=== PATIENT | male | born 1950 | race Caucasian/White ===

== ENCOUNTER 2016-05-24 11:48 | Inpatient (IN) | payer MEDICARE, OTHER ==
[2016-05-24] VITALS (12 sets, daily range): BP systolic 79–112; BP diastolic 43–60; PULSE 49–84; RESP 16–26; TEMP 97.3–97.6; O2SAT 95–100
[~2016-05-24] VITALS: Ht 188 cm; Wt 117.0 kg
[~2016-05-24 11:48] MED LIST: AMIO200T PO; ASPI81TA44 PO; BUME1TAB26 PO; CARV3.125 PO; COLA100C3 PO; COUM4TAB PO; HYDR-3288 PO; INSU1INJ5 SQ; LEXA10TA PO; LISI2.5T3 PO; MULT1TAB85 PO; NOVORP2 SQ; OCEA0.653 EACH NARE; POTA75TA PO; PROM12.55 PO; PROT40TA PO; REGL10TA5 PO; SILV1CRE20 TOPICAL; SIME80CH CHEW; VITA500C9 PO; WARF4TAB52 PO; ZOFR4TAB IM
--- NOTE | 2016-05-24 12:11 | PD ---
HPI Chief Complaint: altered mental status Time Seen by Provider: 12:10 Travel History International Travel<30 days: No Contact w/Intl Traveler<30days: No Traveled to known affect area: No History of Present Illness HPI 65-year-old male who is wheelchair-bound and lives in [facility] rehabilitation happens to be quite a debilitated man went to see his vascular surgeon today. Patient has poor circulation in his lower extremities and has partial foot amputation. He got the sonogram done and when Dr. Garcia had gone to see him patient became poorly responsive. His blood pressure went down to the 60s. He recommended that the patient should be brought to the emergency room. Here he happens to be responsive but lethargic. Mid Level Net Developer says that this is worse than his usual baseline mental status which is awake and talking. Patient is responding to certain questions. He is not a reliable historian at this present time. Patient is bradycardic but blood pressure is stable. Blood sugar was 115. PFSH Past Medical History Narrative Medical List of his past medical history as reviewed from the nursing note. Hx Anticoagulant Therapy: Yes (WAFARIN ) Asthma: No Blood Disorders: Yes Anxiety: No Depression: Yes Heart Rhythm Problems: Yes (AFIB) Cancer: No Cardiovascular Problems: Yes (CHF, AFIB ) Chemotherapy: No COPD: Yes Diabetes: Yes Diminished Hearing: Yes ([place]) Endocrine: Yes Gastrointestinal Disorders: No Genitourinary: No Hypertension: Yes Immune Disorder: No Implanted Vascular Access Dvce: No Musculoskeletal: No Neurologic: Yes Psychiatric: Yes Reproductive: No Respiratory: Yes (COPD ) Radiation Therapy: No Sleep Apnea: No Thyroid Disease: No Past Surgical History Abdominal Surgery: Yes (GALLBLADDER) Cholecystectomy: Yes Pacemaker: No Tonsillectomy: Yes Other Surgery: Yes Social History Alcohol Use: No Tobacco Use: No Substance Use: No Allergies-Medications (Allergen,Severity, Reaction): Coded Allergies: *MDRO Multi-Drug Resistant Organism (Verified Adverse Reaction, Unknown, 05/26/16) MRSA (toe wound) - 01/27/16 MRSA PCR Screen POSITIVE - 05/26/16 Comments List of his allergies reviewed from the nursing note. Reported Meds & Prescriptions Reported Meds & Active Scripts Active Reported Omeprazole 20 Mg Tab 20 Mg PO DAILY Phenergan (Promethazine HCl) 25 Mg Tab 25 Mg PO Q4HR PRN Potassium Chloride ER (Potassium Chloride) 20 Meq Tab 20 Meq PO BID Warfarin 5 Mg Tab 5.5 Mg PO DAILY Take 1 tablet (5mg) with 1/2 of 1mg tab (0.5mg) for a total dose of 5.5mg daily Zofran (Ondansetron HCl) 4 Mg Tab 4 Mg IM Q4HR PRN Warfarin 1 Mg Tab 5.5 Mg PO DAILY Take 1/2 tab (0.5mg) with 5mg tablet for a total dose of 5.5mg daily Vitamin C (Ascorbic Acid) 500 Mg Chew 500 Mg PO BID Simethicone 80 Mg Chw 80 Mg CHEW QID PRN Reglan (Metoclopramide HCl) 10 Mg Tab 10 Mg PO QID [place] Nasal [place] (Sodium Chloride) 0.65% [place] 2 [place] EACH NARE Q6HR PRN Novolin R Inj (Insulin Human Regular) 1,000 Unit/10 Ml Vial 3-15 Units SQ DIRECTED Sliding Scale: if 201-250=3 units, 251-300=5 units, 301-350=8 units, 351-400=10 units, 401+=15 units and call MD [place] (Hydrocodone-Acetaminophen) 7.5-325 mg Tab 1 Tab PO Q6H PRN Multivitamin Men (Multiple Vitamins W/ Minerals) 1 Tab Tab 1 Tab PO DAILY Lisinopril 2.5 Mg Tab 2.5 Mg PO DAILY Lexapro (Escitalopram Oxalate) 10 Mg Tab 10 Mg PO DAILY Levemir Flextouch Pen Inj (Insulin Detemir) 300 unit/3 ML Pen 15 Units SQ HS Coreg (Carvedilol) 3.125 Mg Tab 3.125 Mg PO Q12HR Colace (Docusate Sodium) 100 Mg Cap 100 Mg PO BID Bumex (Bumetanide) 1 Mg Tab 1 Mg PO BID Aspirin Enteric Coated Adult (Aspirin) 81 Mg Tabdr 162 Mg PO DAILY Amiodarone (Amiodarone HCl) 200 Mg Tab 200 Mg PO DAILY Narrative Medication List of his home medications reviewed from the nursing note. Review of Systems Except as stated in HPI: all other systems reviewed are Neg Physical Exam Narrative GENERAL: Lethargic, obese, nonambulatory SKIN: Warm and dry. HEAD: Atraumatic. Normocephalic. EYES: Pupils equal and round. No scleral icterus. No injection or drainage. ENT: No nasal bleeding or discharge. Mucous membranes pink and moist. NECK: Trachea midline. No JVD. CARDIOVASCULAR: Regular rate and rhythm. No murmur appreciated. RESPIRATORY: No accessory muscle use. Clear to auscultation. Breath sounds equal bilaterally. GASTROINTESTINAL: Abdomen soft, non-tender, nondistended. Hepatic and splenic margins not palpable. MUSCULOSKELETAL: No obvious deformities. No clubbing. No cyanosis. No edema. Partial left foot amputation, decubitus ulcer both feet heals. NEUROLOGICAL: GCS of 12, wheelchair-bound, moving upper extremity with assistance. Does not move her lower extremities. PSYCHIATRIC: Difficult to assess Data Data Last Documented VS Vital Signs Date Time Temp Pulse Resp B/P Pulse Ox O2 Delivery O2 Flow Rate FiO2 05/24/16 13:27 62 18 98/55 100 Nasal Cannula 2 05/24/16 12:11 97.4 Orders Electrocardiogram (05/24/16 12:17) Alcohol (Ethanol) (05/24/16 12:17) Complete Blood Count With Diff (05/24/16 12:17) Comprehensive Metabolic Panel (05/24/16 12:17) Creatine Kinase (Cpk) (05/24/16 12:17) Prothrombin Time / Inr (Pt) (05/24/16 12:17) Act Partial Throm Time (Ptt) (05/24/16 12:17) Troponin I (05/24/16 12:17) Lactic Acid Sepsis Protocol (05/24/16 12:17) Urinalysis - C+S If Indicated (05/24/16 12:17) Arterial Blood Gas (Abg) (05/24/16 12:17) Blood Culture (05/24/16 12:17) Ct Brain W/O Iv Contrast(Rout) (05/24/16 12:17) Blood Glucose (05/24/16 12:17) Ecg Monitoring (05/24/16 12:17) Iv Access Insert/Monitor (05/24/16 12:17) Oximetry (05/24/16 12:17) Sodium Chloride 0.9% Flush (Ns Flush) (05/24/16 12:30) Sodium Chlor 0.9% 1000 Ml Inj (Ns 1000 M (05/24/16 12:17) ^ Straight Catheter (05/24/16 12:17) Piperacil-Tazo 4.5 Gm Premix (Zosyn 4.5 (05/24/16 12:30) Vancomycin Inj (Vancomycin Inj) (05/24/16 12:30) Magnesium (Mg) (05/24/16 12:25) Chest, Single Ap (05/24/16 ) Calcium Gluconate Inj (Calcium Gluconate (05/24/16 13:45) Insulin Human Regular Inj (Novolin R Inj (05/24/16 14:00) Dextrose 50% In Yordan (Vial) Inj (D50w (Vi (05/24/16 13:45) Sodium Bicarbonate 8.4% Inj (Sodium Bica (05/24/16 13:45) Albuterol Concentrated Neb (Albuterol Co (05/24/16 13:45) Sodium Polysty Sulfate Liq (Kayexalate L (05/24/16 13:45) Urinary Catheter Insert/Apply (05/24/16 13:45) Sodium Chlor 0.9% 1000 Ml Inj (Ns 1000 M (05/24/16 14:00) Admit Order (Ed Use Only) (05/24/16 14:27) Labs Laboratory Tests Test 05/24/16 05/24/16 12:25 13:58 White Blood Count 13.1 TH/MM3 Red Blood Count 3.33 MIL/MM3 Hemoglobin 9.8 GM/DL Hematocrit 29.8 % Mean Corpuscular Volume 89.5 FL Mean Corpuscular Hemoglobin 29.3 PG Mean Corpuscular Hemoglobin 32.8 % Concent Red Cell Distribution Width 16.7 % Platelet Count 251 TH/MM3 Mean Platelet Volume 7.8 FL Neutrophils (%) (Auto) 79.6 % Lymphocytes (%) (Auto) 10.0 % Monocytes (%) (Auto) 8.4 % Eosinophils (%) (Auto) 1.4 % Basophils (%) (Auto) 0.6 % Neutrophils # (Auto) 10.4 TH/MM3 Lymphocytes # (Auto) 1.3 TH/MM3 Monocytes # (Auto) 1.1 TH/MM3 Eosinophils # (Auto) 0.2 TH/MM3 Basophils # (Auto) 0.1 TH/MM3 CBC Comment DIFF FINAL Differential Comment Prothrombin Time 35.8 SEC Prothromb Time International 3.1 RATIO Ratio Activated Partial 41.8 SEC Thromboplast Time Sodium Level 127 MEQ/L Potassium Level 6.1 MEQ/L Chloride Level 94 MEQ/L Carbon Dioxide Level 22.0 MEQ/L Anion Gap 11 MEQ/L Blood Urea Nitrogen 100 MG/DL Creatinine 4.21 MG/DL Estimat Glomerular Filtration 14 ML/MIN Rate Random Glucose 104 MG/DL Lactic Acid Level 1.6 mmol/L Calcium Level 8.8 MG/DL Magnesium Level 2.6 MG/DL Total Bilirubin 0.5 MG/DL Aspartate Amino Transf 21 U/L (AST/SGOT) Alanine Aminotransferase 45 U/L (ALT/SGPT) Alkaline Phosphatase 93 U/L Total Creatine Kinase 39 U/L Troponin I LESS THAN 0.02 NG/ML Total Protein 7.8 GM/DL Albumin 3.3 GM/DL Ethyl Alcohol Level LESS THAN 3 MG/DL Blood Gas Puncture Site RT RADIAL Blood Gas Patient Temperature 98.6 Blood Gas HCO3 19 mmol/L Blood Gas Base Excess -5.4 mmol/L Blood Gas Oxygen Saturation 96 % Arterial Blood pH 7.34 Arterial Blood Partial 37 mmHg Pressure CO2 Arterial Blood Partial 150 mmHG Pressure O2 Arterial Blood Oxygen Content 13.3 Vol % Arterial Blood 2.1 % Carboxyhemoglobin Arterial Blood Methemoglobin 1.5 % Blood Gas Hemoglobin 9.6 G/DL Oxygen Delivery Device NASAL CANNULA Blood Gas Liter Flow 3 L/M MDM Medical Decision Making Medical Screen Exam Complete: Yes Emergency Medical Condition: Yes Medical Record Reviewed: Yes Interpretation(s) Twelve-lead EKG was reviewed by me. Normal sinus rhythm, normal axis, bradycardia, first-degree AV block, nonspecific ST-T wave changes. Heart rate of 53 bpm. Differential Diagnosis Sepsis, dehydration, electrolyte abnormalities, CVA Narrative Course 1:51 PM blood test results are back and shows significant electrolyte abnormalities. Patient is hyperkalemic, hyponatremic, acute renal failure and these are definitely new compared to his recent old blood work. Head CT does not show any acute changes. Chest x-ray is getting done right now. Patient was given IV fluid and antibiotic as per sepsis protocol initially. I've asked the nurse to put a Chase catheter in. Patient will need admission. Awaiting for the hospitalist to call back. Critical Care Narrative Aggregate critical care time was 45 minutes. Time to perform other separately billable procedures was not included in the critical care time. My time did not include minutes spent treating any other patients simultaneously or on activities that did not directly contribute to the patient's treatment. The services I provided to this patient were to treat and/or prevent clinically significant deterioration that could result in: Acute renal failure, hyperkalemia, hyperkalemia management, sepsis, sepsis protocol I provided critical care services requiring my management, as noted below: Chart data review, documentation time, medication orders and management, vital sign assessments/reviewing monitor data, ordering and reviewing lab tests, ordering and interpreting/reviewing x-rays and diagnostic studies, care of the patient and discussion of the patient with the admitting physicians. Procedures EKG Prior to Arrival: No Diagnosis Primary Impression: Acute renal failure Qualified Code: N17.9 - Acute renal failure, unspecified acute renal failure type Additional Impressions: Hyperkalemia Hyponatremia Altered mental status Qualified Code: R40.0 - Somnolence Dehydration Hypotension Qualified Code: I95.9 - Hypotension, unspecified hypotension type Sepsis Qualified Code: A41.9 - Sepsis, due to unspecified organism Admitting Information Admitting Physician Requests: Josh Vogel MD May 24, 2016 12:11
[2016-05-24] MEDS ORDERED: SODIUM CHLOR 0.9% 1000 ML INJ 1,000 ML IV SCH (12:17)
[2016-05-24] MEDS ORDERED: PIPERACIL-TAZO 4.5 GM PREMIX 100 ML IV ONE (12:30)
[2016-05-24] MEDS ORDERED: SODIUM CHLORIDE 0.9% FLUSH 5 ML FLUSH IVF PRN (12:30)
[2016-05-24] MEDS ORDERED: VANCOMYCIN INJ 1,000 MG in SODIUM CHLOR 0.9% 250 ML INJ 250 ML IV ONE (12:30)
[2016-05-24 12:36] LABS: AUTOMATED NEUTROPHIL # 10.4 TH/MM3 (1.8-7.7); BASOPHIL # 0.1 TH/MM3 (0-0.2); BASOPHIL % 0.6 % (0.0-2.0); EOSINOPHIL # 0.2 TH/MM3 (0-0.4); EOSINOPHIL % 1.4 % (0.0-4.0); HEMATOCRIT 29.8 % (39.0-51.0); HEMO FLAGS DIFF FINAL; LYMPHOCYTE # 1.3 TH/MM3 (1.0-4.8); MEAN CELL VOLUME 89.5 FL (80.0-100.0); MEAN CORPUSCULAR HEMOGLOBIN 29.3 PG (27.0-34.0); MEAN CORPUSCULAR HGB CONC 32.8 % (32.0-36.0); MONO % 8.4 % (0.0-8.0); NEUT % 79.6 % (16.0-70.0); PLATELET COUNT 251 TH/MM3 (150-450); RED BLOOD COUNT 3.33 MIL/MM3 (4.50-5.90); RED CELL DISTRIBUTION WIDTH 16.7 % (11.6-17.2); WHITE BLOOD COUNT 13.1 TH/MM3 (4.0-11.0)
[2016-05-24 12:51] LABS: APTT (PATIENT) 41.8 SEC (24.3-30.1); INTERNATIONAL NORMALIZED RATIO 3.1 RATIO; PROTHROMBIN TIME - PATIENT 35.8 SEC (9.8-11.6)
[2016-05-24 12:58] LABS: ANION GAP 11 MEQ/L (5-15); AST (GOT) 21 U/L (15-37); CHLORIDE 94 MEQ/L (98-107); GLOMERULAR FILTRATION RATE 14 ML/MIN (>89); MAGNESIUM 2.6 MG/DL (1.5-2.5); POTASSIUM 6.1 MEQ/L (3.5-5.1); SODIUM (NA) 127 MEQ/L (136-145)
[2016-05-24 13:05] LABS: ALKALINE PHOSPHATASE 93 U/L (45-117); ALT (GPT) 45 U/L (12-78); BLOOD UREA NITROGEN 100 MG/DL (7-18); TOTAL BILIRUBIN ADULT 0.5 MG/DL (0.2-1.0)
[2016-05-24 13:06] LABS: CREATINE KINASE 39 U/L (39-308)
[2016-05-24] MEDS ORDERED: WARF-23 PO (13:14)
[2016-05-24] MEDS ORDERED: PROM25TA5 PO (13:14)
[2016-05-24] MEDS ORDERED: OMEP20TA PO (13:14)
[2016-05-24] MEDS ORDERED: POTA-163 PO (13:14)
--- NOTE | 2016-05-24 13:19 | RADRPT ---
EXAM DATE/TIME: 05/24/2016 12:55 [facility] COMPARISON: CT BRAIN W/O CONTRAST, May 07, 2016, 18:47. INDICATIONS : Altered mental status. RADIATION DOSE: 56.35 CTDIvol (mGy) MEDICAL HISTORY : Diabetes mellitus type 2. Congestive heart failure. Chronic obstructive pulmonary disease.Hypertensio n. SURGICAL HISTORY : Cholecystectomy. ENCOUNTER: Initial ACUITY: 1 day PAIN SCALE: 0/10 LOCATION: cranial TECHNIQUE: Multiple contiguous axial images were obtained of the head. Using automated exposure control and adj ustment of the mA and/or kV according to patient size, radiation dose was kept as low as reasonably a chievable to obtain optimal diagnostic quality images. FINDINGS: CEREBRUM: Atrophy. Periventricular low attenuation change. The appearance is stable. The ventricles are normal for age. No evidence of midline shift, mass lesion, hemorrhage or acute infarction. No extra-axial fluid collections are seen. POSTERIOR FOSSA: The cerebellum and brainstem are intact. The 4th ventricle is midline. The cerebellopontine angle i s unremarkable. EXTRACRANIAL: The visualized portion of the orbits is intact. SKULL: The calvaria is intact. No evidence of skull fracture. CONCLUSION: 1. No acute intracranial abnormality. 2. Atrophy. 3. Chronic small vessel ischemic change. Juvenal Jarquin Jr., MD on May 24, 2016 at 13:15 Board Certified Radiologist. This report was verified electronically.
[2016-05-24] MEDS ORDERED: SODIUM POLYSTYRENE SULFONATE SUSP 15 GM/60 ML CUP PO ONE (13:45)
[2016-05-24] MEDS ORDERED: CALCIUM GLUCONATE 10% 1 GM/10 ML VIAL SLOW IVP ONE (13:45)
[2016-05-24] MEDS ORDERED: RESP: ALBUTEROL CONC 2.5 MG/0.5 ML NEB INH ONE (13:45)
[2016-05-24] MEDS ORDERED: DEXTROSE 50% IN WATER 50 ML VIAL(D50) IV PUSH ONE (13:45)
[2016-05-24] MEDS ORDERED: SODIUM BICARBONATE 8.4% SOLN 50 MEQ/50 ML VIAL SLOW IVP ONE (13:45)
[2016-05-24] MEDS ORDERED: SODIUM CHLOR 0.9% 1000 ML INJ 1,000 ML IV ONE (14:00)
[2016-05-24] MEDS ORDERED: INSULIN HUMAN REGULAR 1,000 UNITS/10 ML VIAL IV PUSH ONE (14:00)
--- NOTE | 2016-05-24 14:00 | RADRPT ---
EXAM DATE/TIME: 05/24/2016 13:36 [facility] COMPARISON: CHEST SINGLE AP, May 07, 2016, 18:40. INDICATIONS: Short of breath. MEDICAL HISTORY: None. SURGICAL HISTORY: None. ENCOUNTER: Initial ACUITY: 1 day PAIN SCORE: Non-responsive. LOCATION: Bilateral chest FINDINGS: The lungs are under aerated. The heart is enlarged. Pulmonary vascularity is normal. Very minimal parenchymal changes are seen in the left base. CONCLUSION: Under aerated with compensated cardiomegaly. Nahid Cazares MD FACR on May 24, 2016 at 13:56 Board Certified Radiologist. This report was verified electronically.
[2016-05-24 14:08] LABS: BLOOD GAS BASE EXCESS -5.4 mmol/L (-2-2); BLOOD GAS CARBOXYHEMOGLOBIN 2.1 % (0-4); BLOOD GAS HCO3 19 mmol/L (22-26); BLOOD GAS METHEMOGLOBIN 1.5 % (0-2); BLOOD GAS O2 HGB SATURATION 96 % (90-100); BLOOD GAS OXYGEN CONTENT 13.3 Vol % (12.0-20.0); BLOOD GAS PCO2 37 mmHg (38-42); BLOOD GAS PO2 150 mmHG (61-120); BLOOD GAS TOTAL HGB 9.6 G/DL (12.0-16.0); CRITICAL VALUE NO; DRAW SITE RT RADIAL; LITER FLOW 3 L/M; NUMBER OF ARTERIAL PUNCTURES 1; OXYGEN DEVICE NASAL CANNULA; TEMP CORR TO 98.6
[2016-05-24 14:09] LABS: STAT YES
[2016-05-24] MEDS ORDERED: MISCELLANEOUS NURSING INFORMATION XX SCH (14:45)
[2016-05-24] MEDS ORDERED: CHLORHEXIDINE GLUCONATE 2 % 1 PACK (2 CLOTHS) TOP PRN (14:45)
[2016-05-24] MEDS ORDERED: SODIUM CHLORIDE 0.9% FLUSH 5 ML FLUSH IV FLUSH PRN (14:45)
[2016-05-24] MEDS ORDERED: RESP: ALBUTEROL 2.5 MG/IPRATROPIUM 0.5 MG NEB (PRN) INH (14:45)
[2016-05-24 15:01] LABS: BACTERIA, URINE OCC /hpf; BLOOD, URINE SMALL (NEG); GLUCOSE,URINE NEG (NEG); KETONE, URINE NEG (NEG); MUCUS URINE FEW /lpf (OCC); NITRITE,URINE NEG (NEG); URINE COLOR YELLOW (YELLW/STRAW)
[2016-05-24 15:02] LABS: COMMENT (UR) CATH-CULTURE IND; CULTURE IF INDICATED CATH CULTURE IND
[2016-05-24] MEDS: INSULIN ASPART SUPPLEMENTAL SCALE SQ SCH ×2 (15:30→18:20)
--- NOTE | 2016-05-24 16:05 | HHI.HP ---
[facility] Service Critical Care Medicine Primary Care Physician No Primary Care Physician Admission Diagnosis AMS, acute renal failure, sepsis, hyperkalemia Diagnosis: (1) Severe sepsis Diagnosis: Principal (2) Acute metabolic encephalopathy Diagnosis: Principal (3) Hyperkalemia Diagnosis: Principal (4) Dehydration Diagnosis: Principal (5) Acute renal failure Diagnosis: Principal (6) UTI (urinary tract infection) Diagnosis: Principal (7) Supratherapeutic INR Diagnosis: Principal (8) Leukocytosis Diagnosis: Principal (9) CAD (coronary artery disease) Diagnosis: Secondary (10) PAD (peripheral artery disease) Diagnosis: Secondary (11) Afib Diagnosis: Secondary (12) CHF (congestive heart failure) Diagnosis: Secondary (13) Diabetic foot ulcers Diagnosis: Secondary Chief Complaint: Altered mental status Renal failure Severe sepsis Travel History International Travel<30 Days: No Contact w/Intl Traveler <30 Da: No Traveled to Known Affected Are: No Sepsis Criteria SIRS Criteria (2 or more): RR > 20 or PaCO2 < 32, WBC > 64818, < 4000 or > 10 % bands Sepsis Criteria (SIRS+source): Infect source susp/known Severe Sepsis (+one): Hypotension, Acute Oliguria/Renal Failure Criteria Outcome: Meets severe sepsis criteria History of Present Illness This is a 65-year-old male with past medical history significant for type 2 diabetes, diabetic neuropathy, COPD, hypertension, Depression, A. fib on Coumadin, CHF (Echo 03/26 EF 50-55%), recurrent UTI, chronically wheelchair- bound who was brought to the emergency department from [facility]. He went to see vascular surgeon today for severe peripheral arterial disease. When Dr. Billings, vascular surgeon saw the patient he was poorly responsive systolic blood pressure was in the 60s. Patient was sent over to the emergency department where he was responsive but lethargic. At baseline he is awake and talking. His blood glucose was 115. CT of the head and a chest x-ray did not show any acute findings. Patient had a white count of 13.1 with 80% neutrophils. Also his sodium was 127 and a potassium of 6.1 with BUN 100 and creatinine 4.2. Patient has baseline chronic kidney disease with creatinine varying from 1.2-2.8. Patient received vancomycin and Zosyn in the ED empirically as source of infection was not known. After Chase was placed it was noted that urine is quite cloudy and possible source of sepsis was UTI I evaluated the patient in the ED. After receiving 2 L of crystalloids patient' s mentation is better even though still slightly lethargic. Patient has bilateral diabetic lower extremity ulcers. He has a necrotic appearing large ulceration on the lateral left foot. Also posterior ankle of right lower extremity has a large ulcer with sloughing and evidence of infection, muscle tendons are visible. Wound on right lateral ankle appears to be healing. Urine and sputum cultures have been ordered. I will continue vancomycin and Zosyn Review of Systems ROS Limitations: Other (as per HPI) Past Family Social History Allergies: Coded Allergies: *MDRO Multi-Drug Resistant Organism (Verified Adverse Reaction, Unknown, 05/07/16) MRSA (toe wound) - 01/27/16 Past Medical History Chronic atrial fibrillation on Coumadin History of congestive heart failure ejection fraction on 03/2016 50-55% COPD Hypertension History of UTI Peripheral vascular disease Diabetic neuropathy Chronic pain Bilateral diabetic foot ulcers History of osteomyelitis left lower extremity Past Surgical History Cholecystectomy Tonsillectomy Reported Medications Omeprazole 20 Mg Tab 20 Mg PO DAILY Phenergan (Promethazine HCl) 25 Mg Tab 25 Mg PO Q4HR PRN Potassium Chloride ER (Potassium Chloride) 20 Meq Tab 20 Meq PO BID Warfarin 5.5 Mg PO DAILY Zofran (Ondansetron HCl) 4 Mg Tab 4 Mg IM Q4HR PRN Vitamin C (Ascorbic Acid) 500 Mg Chew 500 Mg PO BID Simethicone 80 Mg Chw 80 Mg CHEW QID PRN Reglan (Metoclopramide HCl) 10 Mg Tab 10 Mg PO QID [place] Nasal [place] (Sodium Chloride) 0.65% [place] 2 [place] EACH NARE Q6HR PRN Novolin R Inj (Insulin Human Regular) 1,000 Unit/10 Ml Vial 3-15 Units SQ DIRECTED [place] (Hydrocodone-Acetaminophen) 7.5-325 mg Tab 1 Tab PO Q6H PRN Multivitamin Men (Multiple Vitamins W/ Minerals) 1 Tab Tab 1 Tab PO DAILY Lisinopril 2.5 Mg Tab 2.5 Mg PO DAILY Lexapro (Escitalopram Oxalate) 10 Mg Tab 10 Mg PO DAILY Levemir Flextouch Pen Inj (Insulin Detemir) 300 unit/3 ML Pen 15 Units SQ HS Coreg (Carvedilol) 3.125 Mg Tab 3.125 Mg PO Q12HR Colace (Docusate Sodium) 100 Mg Cap 100 Mg PO BID Bumex (Bumetanide) 1 Mg Tab 1 Mg PO BID Aspirin Enteric Coated Adult (Aspirin) 81 Mg Tabdr 162 Mg PO DAILY Amiodarone (Amiodarone HCl) 200 Mg Tab 200 Mg PO DAILY Active Ordered Medications Reviewed Family History Not contributing Social History [facility] resident wheelchair bound. Denies alcohol or tobacco use Physical Exam Vital Signs Vital Signs Date Time Temp Pulse Resp B/P Pulse Ox O2 Delivery O2 Flow Rate FiO2 05/24/16 14:47 68 16 101/44 100 Nasal Cannula 2 05/24/16 13:27 62 18 98/55 100 Nasal Cannula 2 05/24/16 12:40 60 18 92/43 100 Nasal Cannula 2 05/24/16 12:24 98 Nasal Cannula 2 05/24/16 12:11 50 16 98 Nasal Cannula 2 05/24/16 12:11 97.4 49 18 112/60 100 Nasal Cannula 2 05/24/16 12:05 97.3 50 16 112/60 95 Physical Exam GENERAL: 65-year-old male who is obese lethargic but awake follows commands. SKIN: Warm and dry. HEAD: Atraumatic. Normocephalic. EYES: Pupils equal and round. ENT: No nasal bleeding or discharge. Mucous membranes dry NECK: Trachea midline. No JVD. CARDIOVASCULAR: Regular rate and rhythm. No murmur appreciated. RESPIRATORY: No accessory muscle use. Clear to auscultation. Breath sounds equal bilaterally. GASTROINTESTINAL: Abdomen soft, non-tender, nondistended. Hepatic and splenic margins not palpable. MUSCULOSKELETAL: Necrotic appearing large ulceration on the lateral part of left foot. Right posterior ankle has a large ulcer with sloughing and evidence of infection, muscle tendons are visible. Lateral ankle ulcer appears well- healed. Stage II sacral decubitus ulcer NEUROLOGICAL: Alert awake oriented. Neuro status improving with hydration and antibiotics. Moves all extremities follows commands Laboratory Laboratory Tests Test 05/24/16 05/24/16 05/24/16 12:25 13:58 14:30 White Blood Count 13.1 Red Blood Count 3.33 Hemoglobin 9.8 Hematocrit 29.8 Mean Corpuscular Volume 89.5 Mean Corpuscular Hemoglobin 29.3 Mean Corpuscular Hemoglobin 32.8 Concent Red Cell Distribution Width 16.7 Platelet Count 251 Mean Platelet Volume 7.8 Neutrophils (%) (Auto) 79.6 Lymphocytes (%) (Auto) 10.0 Monocytes (%) (Auto) 8.4 Eosinophils (%) (Auto) 1.4 Basophils (%) (Auto) 0.6 Neutrophils # (Auto) 10.4 Lymphocytes # (Auto) 1.3 Monocytes # (Auto) 1.1 Eosinophils # (Auto) 0.2 Basophils # (Auto) 0.1 CBC Comment DIFF FINAL Differential Comment Prothrombin Time 35.8 Prothromb Time International 3.1 Ratio Activated Partial 41.8 Thromboplast Time Sodium Level 127 Potassium Level 6.1 Chloride Level 94 Carbon Dioxide Level 22.0 Anion Gap 11 Blood Urea Nitrogen 100 Creatinine 4.21 Estimat Glomerular Filtration 14 Rate Random Glucose 104 Lactic Acid Level 1.6 Calcium Level 8.8 Magnesium Level 2.6 Total Bilirubin 0.5 Aspartate Amino Transf 21 (AST/SGOT) Alanine Aminotransferase 45 (ALT/SGPT) Alkaline Phosphatase 93 Total Creatine Kinase 39 Troponin I LESS THAN 0.02 Total Protein 7.8 Albumin 3.3 Ethyl Alcohol Level LESS THAN 3 Blood Gas Puncture Site RT RADIAL Blood Gas Patient Temperature 98.6 Blood Gas HCO3 19 Blood Gas Base Excess -5.4 Blood Gas Oxygen Saturation 96 Arterial Blood pH 7.34 Arterial Blood Partial 37 Pressure CO2 Arterial Blood Partial 150 Pressure O2 Arterial Blood Oxygen Content 13.3 Arterial Blood 2.1 Carboxyhemoglobin Arterial Blood Methemoglobin 1.5 Blood Gas Hemoglobin 9.6 Oxygen Delivery Device NASAL CANNULA Blood Gas Liter Flow 3 Urine Color YELLOW Urine Turbidity CLOUDY Urine pH 5.0 Urine Specific [place] 1.014 Urine Protein TRACE Urine Glucose (UA) NEG Urine Ketones NEG Urine Occult Blood SMALL Urine Nitrite NEG Urine Bilirubin NEG Urine Urobilinogen LESS THAN 2.0 Urine Leukocyte Esterase LARGE Urine RBC 31 Urine WBC Urine WBC Clumps FEW Urine Bacteria OCC Urine Mucus FEW Microscopic Urinalysis Comment CATH-CULTURE IND Date/Time Procedure Status Source Growth 05/24/16 14:30 Urine Culture Received Urine Catheterized Urine Pending 05/24/16 12:30 Aerobic Blood Culture Received Blood Peripheral Pending 05/24/16 12:30 Anaerobic Blood Culture Received Blood Peripheral Pending Result Diagram: 05/24/16 1225 05/24/16 1225 Imaging Chest x-ray and CT of the head no acute findings-reviewed personally Septic Shock Reassessment Heart: Regular rate and rhythm Lungs: Clear Skin: Warm Peripheral Pulses: Weak Right Radial Weak Left Radial Capillary Refill: Sluggish Assessment and Plan Assessment and Plan NEURO: Metabolic encephalopathy Diabetic neuropathy Wheelchair-bound -Minimize sedation, altered mental status secondary to sepsis, uremia -Hold Lexapro and [place]. Start when necessary morphine if needed for pain RESP: History of COPD -Nasal cannula oxygen -DuoNeb every 6 hours when necessary CV: Hypotension Chronic atrial fibrillation on Coumadin Coronary artery disease Peripheral arterial disease History of congestive heart failure -Normal saline IV fluids 3L bolus and 150 ml per hour -2-D echo March 2016 EF 50-55% -Hold home dose of Bumex and lisinopril due to renal failure, hold Coreg due to hypotension -Continue amiodarone, continue aspirin -INR is supratherapeutic at 3.1 hold Coumadin GI: -Nothing by mouth, IV Protonix -Start ADA renal diet once mentation is improved : Acute on chronic kidney disease Hyperkalemia -Patient's creatinine has varied from 1.2-2.8 before. -Acute worsening due to dehydration and ATN. Continue aggressive hydration -Hold Bumex, hold lisinopril, discontinue potassium supplements -The ER received IV insulin D50 and bicarbonate. Repeat potassium in 1 hour -Monitor renal function closely. Chase catheter. Nephrology consult if creatinine not normalizing ID: Severe sepsis UTI Infected appearing diabetic foot ulcers -Send urine blood and sputum culture -Received vancomycin and Zosyn in ED continue both -Follow up on cultures HEME: Coagulopathy -Monitor CBC, CMP, coags -Hold Coumadin. Pharmacy to dose Coumadin once INR is close to 2. ENDO: Type 2 diabetes -Sliding-scale insulin for diabetes PROPH: -Bilateral lower extremity SCDs. Avoid chemical DVT prophylaxis as INR is 3.1 LINES: -Utilize peripheral IVs, central line if needed CC time 60 min Code Status Full Discussed Condition With Glenn Problem Qualifiers (1) Acute renal failure: Qualified Code: N17.9 - Acute renal failure, unspecified acute renal failure type (2) UTI (urinary tract infection): (3) CAD (coronary artery disease): (4) Diabetic foot ulcers: Kanika Queen MD May 24, 2016 16:05 Kanika Queen MD May 24, 2016 16:05
[2016-05-24] MEDS ORDERED: Vancomycin Consult Pharmacy 1 EA OTHER SCH (16:15)
[2016-05-24] MEDS: SODIUM CHLOR 0.9% 1000 ML INJ 1,000 ML IV SCH ×2 (16:28→21:54)
[2016-05-24] MEDS: PANTOPRAZOLE SODIUM 40 MG VIAL IV SCH (16:32)
[2016-05-24] MEDS: CEFEPIME IV SCH (17:22)
[2016-05-24] MEDS: SODIUM CHLORIDE 0.9% IV SCH (17:22)
[2016-05-24 17:39] LABS: ALKALINE PHOSPHATASE 79 U/L (45-117); ALT (GPT) 39 U/L (12-78); ANION GAP 9 MEQ/L (5-15); AST (GOT) 16 U/L (15-37); BICARBONATE 22.7 MEQ/L (21.0-32.0); BLOOD UREA NITROGEN 92 MG/DL (7-18); CHLORIDE 101 MEQ/L (98-107); GLOMERULAR FILTRATION RATE 16 ML/MIN (>89); POTASSIUM 5.4 MEQ/L (3.5-5.1); SODIUM (NA) 133 MEQ/L (136-145); TOTAL BILIRUBIN ADULT 0.4 MG/DL (0.2-1.0)
--- NOTE | 2016-05-24 19:24 | PD.CONS ---
History of Present Illness Service Podiatry Consult Requested By ED Reason for Consult Wounds R and L Primary Care Physician No Primary Care Physician Diagnoses: History of Present Illness Patient relates a 2 month history of wound R back of heel/ankle area with exposed achilles tendon. He has not been seeing anyone for it. He has also underwent previous surgeries with me last year with amputations to L lateral foot. He has a necrotic wound there, as well. He is wheelchair-bound and lives in [facility]. He has history of PAD and went to get a U/S done and became less responsive to Dr Phan with low BP. Review of Systems ROS Limitations: Poor Historian Past Family Social History Allergies: Coded Allergies: *MDRO Multi-Drug Resistant Organism (Verified Adverse Reaction, Unknown, 05/07/16) MRSA (toe wound) - 01/27/16 Past Medical History DM PAD On warfarin Afib Depression CHF COPD Past Surgical History Cholecystectomy L foot surgery Tonsillectomy Active Ordered Medications Current Medications Medications (Trade) Dose Ordered Sig/Thaddeus Route Start Time Stop Time Status Last Admin (NS 1000 ml Inj) 1,000 ml @ 150 mls/hr Q6H40M IV 05/24/16 14:33 05/24/16 16:28 (NS Flush) 2 ml UNSCH PRN IV FLUSH 05/24/16 14:45 (NS Flush) 2 ml BID IV FLUSH 05/24/16 21:00 (Protonix Inj) 40 mg DAILY IV 05/24/16 15:30 05/24/16 16:32 Miscellaneous Information 1 Q361D XX 05/24/16 14:45 05/24/16 17:09 (Chlorhexidine 2% Cloth) 3 pack Taper DAILY@04 TOP 05/25/16 04:00 05/21/17 03:59 Chlorhexidine Gluconate 3 pack 3 pack UNSCH PRN TOP 05/24/16 14:45 Cefepime HCl 500 mg/Sodium Chloride 100 ml @ 200 mls/hr Q24H IV 05/24/16 16:00 05/24/16 17:22 (Coumadin Consult Pharmacy) 0 ml @ 0 mls/hr UNSCH OTHER 05/24/16 14:45 Insulin Aspart 1 1 Q6HR SQ 05/24/16 15:30 05/24/16 18:20 Piperacillin Sod/ Tazobactam Sod 50 ml @ 100 mls/hr Q8H IV 05/24/16 21:00 (Vancomycin Consult Pharmacy) 0 ml @ 0 mls/hr UNSCH OTHER 05/24/16 16:15 Physical Exam Vital Signs Vital Signs Date Time Temp Pulse Resp B/P Pulse Ox O2 Delivery O2 Flow Rate FiO2 05/24/16 18:22 78 20 111/52 98 Nasal Cannula 2 05/24/16 14:47 68 16 101/44 100 Nasal Cannula 2 05/24/16 13:27 62 18 98/55 100 Nasal Cannula 2 05/24/16 12:40 60 18 92/43 100 Nasal Cannula 2 05/24/16 12:24 98 Nasal Cannula 2 05/24/16 12:11 50 16 98 Nasal Cannula 2 05/24/16 12:11 97.4 49 18 112/60 100 Nasal Cannula 2 05/24/16 12:05 97.3 50 16 112/60 95 Physical Exam R posterior lower leg has ulceration 6cm x 4cm with central necrotic tissue over exposed achilles tendon. There is currently no purulence noted. Does not seem painful to palpation. L foot with prior 4th and 5th ray amputations. L plantar lateral foot with large necrotic eschar and minimal purulence noted. No surrounding erythema. Healthy bleeding viable tissue present upon debridement of necrotic eschar bedside. Culture taken of drainage in ED. Sensation absent to light touch bilaterally. Laboratory Laboratory Tests Test 05/24/16 05/24/16 05/24/16 05/24/16 12:25 13:58 14:30 16:45 White Blood Count 13.1 Red Blood Count 3.33 Hemoglobin 9.8 Hematocrit 29.8 Mean Corpuscular Volume 89.5 Mean Corpuscular Hemoglobin 29.3 Mean Corpuscular Hemoglobin 32.8 Concent Red Cell Distribution Width 16.7 Platelet Count 251 Mean Platelet Volume 7.8 Neutrophils (%) (Auto) 79.6 Lymphocytes (%) (Auto) 10.0 Monocytes (%) (Auto) 8.4 Eosinophils (%) (Auto) 1.4 Basophils (%) (Auto) 0.6 Neutrophils # (Auto) 10.4 Lymphocytes # (Auto) 1.3 Monocytes # (Auto) 1.1 Eosinophils # (Auto) 0.2 Basophils # (Auto) 0.1 CBC Comment DIFF FINAL Differential Comment Prothrombin Time 35.8 Prothromb Time International 3.1 Ratio Activated Partial 41.8 Thromboplast Time Sodium Level 127 133 Potassium Level 6.1 5.4 Chloride Level 94 101 Carbon Dioxide Level 22.0 22.7 Anion Gap 11 9 Blood Urea Nitrogen 100 92 Creatinine 4.21 3.76 Estimat Glomerular Filtration 14 16 Rate Random Glucose 104 107 Lactic Acid Level 1.6 Calcium Level 8.8 7.9 Magnesium Level 2.6 Total Bilirubin 0.5 0.4 Aspartate Amino Transf 21 16 (AST/SGOT) Alanine Aminotransferase 45 39 (ALT/SGPT) Alkaline Phosphatase 93 79 Total Creatine Kinase 39 Troponin I LESS THAN 0.02 Total Protein 7.8 6.5 Albumin 3.3 2.8 Ethyl Alcohol Level LESS THAN 3 Blood Gas Puncture Site RT RADIAL Blood Gas Patient Temperature 98.6 Blood Gas HCO3 19 Blood Gas Base Excess -5.4 Blood Gas Oxygen Saturation 96 Arterial Blood pH 7.34 Arterial Blood Partial 37 Pressure CO2 Arterial Blood Partial 150 Pressure O2 Arterial Blood Oxygen Content 13.3 Arterial Blood 2.1 Carboxyhemoglobin Arterial Blood Methemoglobin 1.5 Blood Gas Hemoglobin 9.6 Oxygen Delivery Device NASAL CANNULA Blood Gas Liter Flow 3 Urine Color YELLOW Urine Turbidity CLOUDY Urine pH 5.0 Urine Specific [place] 1.014 Urine Protein TRACE Urine Glucose (UA) NEG Urine Ketones NEG Urine Occult Blood SMALL Urine Nitrite NEG Urine Bilirubin NEG Urine Urobilinogen LESS THAN 2.0 Urine Leukocyte Esterase LARGE Urine RBC 31 Urine WBC Urine WBC Clumps FEW Urine Bacteria OCC Urine Mucus FEW Microscopic Urinalysis Comment CATH-CULTURE IND Date/Time Procedure Status Source Growth 05/24/16 18:23 Gram Stain Received Wound Foot Pending 05/24/16 18:23 Wound Culture Received Wound Foot Pending 05/24/16 14:30 Urine Culture Received Urine Catheterized Urine Pending 05/24/16 12:30 Aerobic Blood Culture Received Blood Peripheral Pending 05/24/16 12:30 Anaerobic Blood Culture Received Blood Peripheral Pending Result Diagram: 05/24/16 1225 05/24/16 1645 Imaging Last Impressions Head CT 05/24/16 1217 Signed Impressions: Service Date/Time: Tuesday, May 24, 2016 12:55 - CONCLUSION: 1. No acute intracranial abnormality. 2. Atrophy. 3. Chronic small vessel ischemic change. Juvenal Jarquin Jr., MD Chest X-Ray 05/24/16 0000 Signed Impressions: Service Date/Time: Tuesday, May 24, 2016 13:36 - CONCLUSION: Under aerated with compensated cardiomegaly. Nahid Cazares MD FACR Assessment and Plan Assessment and Plan Ulcers L plantar foot and R posterior leg Ulcers excisionally debrided of necrotic and fibrotic tissue down to tendon R leg and down to subcutaneous tissue L foot with #11 blade, followed by culture taken of L foot and dressings applied by nursing. Wrote orders for santyl dressings to both areas daily. Await cultures to guide antibiotic choice Do not anticipate further surgical intervention needed. Patient needs regular wound care and would benefit from wound care center upon d/c. If wounds deteriorate, recommend MRI R lower leg and L foot Jeremy Mackay DPM May 24, 2016 19:24
[2016-05-24] MEDS: SODIUM CHLORIDE 0.9% FLUSH 5 ML FLUSH IV FLUSH SCH (21:00)
[2016-05-24] MEDS: PIPERACIL-TAZO 2.25 GM PREMIX 50 ML IV SCH (21:53)
[2016-05-25] VITALS (14 sets, daily range): BP systolic 81–121; BP diastolic 43–63; PULSE 61–82; RESP 16–25; TEMP 97.6–98.5; O2SAT 98–100
[2016-05-25] MEDS ORDERED: NOREPINEPHRINE 4 MG/D5W 250 ML IV SCH (00:30)
[2016-05-25] MEDS: SODIUM CHLOR 0.9% 1000 ML INJ 1,000 ML IV SCH ×4 (01:45→16:29)
[2016-05-25] MEDS: CHLORHEXIDINE GLUCONATE 2 % 1 PACK (2 CLOTHS) TOP SCH (04:00)
[2016-05-25 05:08] LABS: AUTOMATED NEUTROPHIL # 6.1 TH/MM3 (1.8-7.7); BASOPHIL % 0.5 % (0.0-2.0); EOSINOPHIL # 0.2 TH/MM3 (0-0.4); HEMO FLAGS DIFF FINAL; LYMPH % 12.8 % (9.0-44.0); LYMPHOCYTE # 1.1 TH/MM3 (1.0-4.8); MEAN CELL VOLUME 89.9 FL (80.0-100.0); MEAN CORPUSCULAR HEMOGLOBIN 30.9 PG (27.0-34.0); MEAN CORPUSCULAR HGB CONC 34.3 % (32.0-36.0); MONO % 10.4 % (0.0-8.0); NEUT % 74.3 % (16.0-70.0); PLATELET COUNT 149 TH/MM3 (150-450); RED BLOOD COUNT 2.67 MIL/MM3 (4.50-5.90); RED CELL DISTRIBUTION WIDTH 16.7 % (11.6-17.2); WHITE BLOOD COUNT 8.3 TH/MM3 (4.0-11.0)
[2016-05-25 05:11] LABS: INTERNATIONAL NORMALIZED RATIO 3.4 RATIO; PROTHROMBIN TIME - PATIENT 39.8 SEC (9.8-11.6)
[2016-05-25] MEDS: PIPERACIL-TAZO 2.25 GM PREMIX 50 ML IV SCH (05:24)
[2016-05-25 05:38] LABS: ALKALINE PHOSPHATASE 74 U/L (45-117); ALT (GPT) 37 U/L (12-78); ANION GAP 11 MEQ/L (5-15); AST (GOT) 15 U/L (15-37); BICARBONATE 20.7 MEQ/L (21.0-32.0); BLOOD UREA NITROGEN 77 MG/DL (7-18); CHLORIDE 106 MEQ/L (98-107); GLOMERULAR FILTRATION RATE 22 ML/MIN (>89); MAGNESIUM 2.3 MG/DL (1.5-2.5); POTASSIUM 4.5 MEQ/L (3.5-5.1); SODIUM (NA) 138 MEQ/L (136-145); TOTAL BILIRUBIN ADULT 0.3 MG/DL (0.2-1.0)
[2016-05-25] MEDS: INSULIN ASPART SUPPLEMENTAL SCALE SQ SCH ×4 (06:00→18:00)
--- NOTE | 2016-05-25 06:17 | RADRPT ---
EXAM DATE/TIME: 05/25/2016 05:03 [facility] COMPARISON: CHEST SINGLE AP, May 07, 2016, 18:40. CHEST SINGLE AP, May 24, 2016, 13:36. INDICATIONS : Shortness of breath, possible pulmonary disease. MEDICAL HISTORY : None. SURGICAL HISTORY : None. ENCOUNTER: Subsequent ACUITY: 2 days PAIN SCORE: Non-responsive. LOCATION: Bilateral chest FINDINGS: The heart size is normal. There is mild increased density at the left base. There is also some linear interstitial prominence at the lateral right lung. No effusion is seen. CONCLUSION: Stable areas of mild atelectasis or scarring at the bilateral lungs. Bret Schilling MD on May 25, 2016 at 6:14 Board Certified Radiologist. This report was verified electronically.
[2016-05-25] MEDS: PANTOPRAZOLE SODIUM 40 MG VIAL IV SCH (09:05)
[2016-05-25] MEDS: COLLAGENASE OINT 30 GM TUBE TOP SCH (09:05)
[2016-05-25] MEDS: SODIUM CHLORIDE 0.9% FLUSH 5 ML FLUSH IV FLUSH SCH ×2 (09:06→20:12)
--- NOTE | 2016-05-25 10:24 | HHI.PR ---
Subjective Remarks Patient laying in bed open eyes, awake alert oriented, looks tired, barely answer simple questions Denied chest pain or short of breath "I'm okay for now " Objective Vitals Vital Signs Date Time Temp Pulse Resp B/P Pulse Ox O2 Delivery O2 Flow Rate FiO2 05/25/16 08:00 66 05/25/16 08:00 97.6 63 16 108/54 100 05/25/16 06:00 61 05/25/16 04:00 63 05/25/16 04:00 98.5 65 17 115/55 100 05/25/16 02:00 65 05/25/16 00:00 98.1 67 18 82/43 100 05/25/16 00:00 67 05/24/16 23:35 84/45 05/24/16 23:30 79/43 05/24/16 22:00 84 05/24/16 20:56 96 Nasal Cannula 2.00 05/24/16 20:00 97.6 75 26 91/55 100 05/24/16 20:00 75 05/24/16 18:22 78 20 111/52 98 Nasal Cannula 2 05/24/16 14:47 68 16 101/44 100 Nasal Cannula 2 05/24/16 13:27 62 18 98/55 100 Nasal Cannula 2 05/24/16 12:40 60 18 92/43 100 Nasal Cannula 2 05/24/16 12:24 98 Nasal Cannula 2 05/24/16 12:11 50 16 98 Nasal Cannula 2 05/24/16 12:11 97.4 49 18 112/60 100 Nasal Cannula 2 05/24/16 12:05 97.3 50 16 112/60 95 I/O 05/24/16 05/24/16 05/24/16 05/25/16 05/25/16 05/25/16 07:00 15:00 23:00 07:00 15:00 23:00 Intake Total 1556 ml 1183 ml Output Total 850 ml 1325 ml Balance 706 ml -142 ml Intake Oral 460 ml 30 ml IV Total 1096 ml 1153 ml Output Urine Total 850 ml 1325 ml # Bowel Movements 0 Result Diagram: 05/25/16 0331 05/25/16 0331 Imaging Last Impressions Chest X-Ray 05/25/16 0000 Signed Impressions: Service Date/Time: May 05:03 - CONCLUSION: Stable areas of mild atelectasis or scarring at the bilateral lungs. Bret Schilling MD Head CT 05/24/16 1217 Signed Impressions: Service Date/Time: Tuesday, May 24, 2016 12:55 - CONCLUSION: 1. No acute intracranial abnormality. 2. Atrophy. 3. Chronic small vessel ischemic change. Juvenal Jarquin Jr., MD Objective Remarks GENERAL: 65-year-old male who is obese lethargic but awake follows commands. SKIN: Warm and dry. HEAD: Atraumatic. Normocephalic. EYES: Pupils equal and round. ENT: No nasal bleeding or discharge. Mucous membranes dry NECK: Trachea midline. No JVD. CARDIOVASCULAR: Regular rate and rhythm. No murmur appreciated. RESPIRATORY: No accessory muscle use. Clear to auscultation. Breath sounds equal bilaterally. GASTROINTESTINAL: Abdomen soft, non-tender, nondistended. Hepatic and splenic margins not palpable. MUSCULOSKELETAL: Necrotic appearing large ulceration on the lateral part of left foot. Right posterior ankle has a large ulcer with sloughing and evidence of infection, muscle tendons are visible. Lateral ankle ulcer appears well- healed. Stage II sacral decubitus ulcer NEUROLOGICAL: Alert awake oriented. Neuro status improving with hydration and antibiotics. Moves all extremities follows commands A/P Problem List: (1) Severe sepsis ICD Code: A41.9 Status: Acute (2) Acute metabolic encephalopathy ICD Code: G93.41 Status: Acute (3) Hyperkalemia ICD Code: E87.5 Status: Acute (4) Dehydration ICD Code: E86.0 Status: Acute (5) Acute renal failure ICD Code: N17.9 Status: Acute (6) UTI (urinary tract infection) ICD Code: N39.0 Status: Acute (7) Supratherapeutic INR ICD Code: R79.1 Status: Acute (8) Leukocytosis ICD Code: D72.829 Status: Acute (9) CAD (coronary artery disease) ICD Code: I25.10 Status: Acute (10) PAD (peripheral artery disease) ICD Code: I73.9 Status: Acute (11) Afib ICD Code: I48.91 Status: Chronic (12) CHF (congestive heart failure) ICD Code: I50.9 Status: Acute (13) Diabetic foot ulcers ICD Code: E11.621 Status: Acute Assessment and Plan 65 years old male admitted with acute renal failure and sepsis Infected appearing diabetic foot ulcers Thrombocytopenia mostly due to sepsis Metabolic encephalopathy Diabetic neuropathy Wheelchair-bound Hypotension Chronic atrial fibrillation on Coumadin Coronary artery disease Peripheral arterial disease History of congestive heart failure History of COPD Acute on chronic kidney disease Hyperkalemia Severe sepsis UTI Plan: 05/25 stable monitor CBC, consult ID, thrombocytopenia mostly due to sepsis, continue antibiotic cefepime and Zosyn -Minimize sedation, altered mental status secondary to sepsis, uremia -Hold Lexapro and Bunch. Start when necessary morphine if needed for pain -Nasal cannula oxygen -DuoNeb every 6 hours when necessary -Normal saline IV fluids 3L bolus and 150 ml per hour -2-D echo March 2016 EF 50-55% -Hold home dose of Bumex and lisinopril due to renal failure, hold Coreg due to hypotension -Continue amiodarone, continue aspirin -Monitor INR, hold Coumadin for INR above 3, consult pharmacy -Nothing by mouth, IV Protonix -Start ADA renal diet once mentation is improved -Patient's creatinine has varied from 1.2-2.8 before. -Acute worsening due to dehydration and ATN. Continue aggressive hydration -Hold Bumex, hold lisinopril, discontinue potassium supplements -The ER received IV insulin D50 and bicarbonate. Repeat potassium in 1 hour -Monitor renal function closely. Chase catheter. Nephrology consult if creatinine not normalizing -Send urine blood and sputum culture -Received vancomycin and Zosyn in ED continue both -Follow up on cultures -Monitor CBC, CMP, coags -Hold Coumadin. Pharmacy to dose Coumadin once INR is close to 2. -Sliding-scale insulin for diabetes -Bilateral lower extremity SCDs. Avoid chemical DVT prophylaxis as INR is 3.1 LINES: -Utilize peripheral IVs, central line if needed Type 2 diabetes Problem Qualifiers (1) Acute renal failure: Qualified Code: N17.9 - Acute renal failure, unspecified acute renal failure type (2) UTI (urinary tract infection): (3) CAD (coronary artery disease): (4) Diabetic foot ulcers: Dian Irizarry MD May 25, 2016 10:24
[2016-05-25] MEDS: ACETAMINOPHEN/HYDROcodone 325 MG/5 MG TAB PO PRN ×2 (11:49→21:25)
[2016-05-25] MEDS ORDERED: VANCOMYCIN 1,000 MG/NS 250 ML IV ONE ×2 (12:00)
[2016-05-25] MEDS ORDERED: PHARMACY ORDERED LAB XX ONE (14:00)
--- NOTE | 2016-05-25 14:19 | PD.ID.CON ---
History of Present Illness Service ID Consult Requested By Dr Irizarry Reason for Consult sepsis Primary Care Physician No Primary Care Physician Diagnoses: History of Present Illness 65 yo diabetic morbidley obese male who just quit smoking 6 mos ago has chronic wounds on b/l feet sp L 4-5 ray amputation 2 mos ago developped non healing wound on the L foot and over R chailles area Co drainage , purulence Pt wasadmitted yday with seizure and MS change He was found hypotensive and was briefly on levaphed His MS is back to b/l now He is off pressors, maintaines normal conversatio and is eating his lunch Afebrile UA is with marked purulence, growing a GNR Wound clx growing GNR No fever , but some leukocytosis present on admission Blood cx are negative so far Pt also has acute on chronic smiley failure, with creatinine improving towaards baseline Review of Systems ROS Limitations: Poor Historian Past Family Social History Allergies: Coded Allergies: *MDRO Multi-Drug Resistant Organism (Verified Adverse Reaction, Unknown, 05/26/16) MRSA (toe wound) - 01/27/16 MRSA PCR Screen POSITIVE - 05/26/16 Past Medical History DM HTN PVD Past Surgical History stent placement LLE 4-5 L ray amputation Active Ordered Medications Medications where reviewed in EMR Antibiotics Include: zosyn vancomycin Family History Last Impressions Chest X-Ray 05/25/16 0000 Signed Impressions: Service Date/Time: May 05:03 - CONCLUSION: Stable areas of mild atelectasis or scarring at the bilateral lungs. Bret Schilling MD Head CT 05/24/16 1217 Signed Impressions: Service Date/Time: Tuesday, May 24, 2016 12:55 - CONCLUSION: 1. No acute intracranial abnormality. 2. Atrophy. 3. Chronic small vessel ischemic change. Juvenal Jarquin Jr., MD Social History tobacco 2ppd - quit 6 mos ago rarely ETOH no drugs resides in [facility] Physical Exam Vital Signs Vital Signs Date Time Temp Pulse Resp B/P Pulse Ox O2 Delivery O2 Flow Rate FiO2 05/25/16 10:52 100 Nasal Cannula 1.00 05/25/16 10:00 63 05/25/16 08:00 66 05/25/16 08:00 97.6 63 16 108/54 100 05/25/16 06:00 61 05/25/16 04:00 63 12/15/16 04:00 98.5 65 17 115/55 100 05/25/16 02:00 65 05/25/16 00:00 98.1 67 18 82/43 100 05/25/16 00:00 67 05/24/16 23:35 84/45 05/24/16 23:30 79/43 05/24/16 22:00 84 05/24/16 20:56 96 Nasal Cannula 2.00 05/24/16 20:00 97.6 75 26 91/55 100 05/24/16 20:00 75 05/24/16 18:22 78 20 111/52 98 Nasal Cannula 2 05/24/16 14:47 68 16 101/44 100 Nasal Cannula 2 Physical Exam CONSTITUTIONAL/GENERAL: This is an obese elderly patient, in no apparent distress. SKIN: No jaundice, rashes, or lesions. Skin temperature appropriate. Not diaphoretic. HEAD: Atraumatic. Normocephalic. EYES: Pupils equal and round and reactive. Extraocular motions intact. No scleral icterus. No injection or drainage. Fundi not examined. ENT: Hearing grossly normal. Nose without bleeding or purulent drainage. Ora mucosae moist without visible erythema, exudates, masses, or lesions. Edentulous NECK: Trachea midline. Supple, nontender. CARDIOVASCULAR: Regular rate and rhythm without murmurs, gallops, or rubs. No JVD. Peripheral pulses symmetric. RESPIRATORY/CHEST: Symmetric, unlabored respirations. Clear to auscultation. Breath sounds equal bilaterally. No wheezes, rales, or rhonchi. GASTROINTESTINAL: Abdomen soft, non-tender, nondistended. No hepato-splenomegaly , or palpable masses. No guarding. Bowel sounds present. GENITOURINARY: Without palpable bladder distension. Chase catheter in place with clear yellow urine MUSCULOSKELETAL: Extremities without clubbing, cyanosis, + stigmata of poor circulation including poor healing, loss of skin appaendages , decreased temperature and non palpable pulses b/ feet Necrotic based wound with full thickness skin loss over achilles on the R foot L foot sp 4-5 ray amputaion with clean bleeding ulcer smal amount of necrotic toissue no odor NEUROLOGICAL: Awake and alert. Motor and sensory grossly within normal limits. Follows commands. Cognitively sharp. Moves all extremities. PSYCHIATRIC: No obvious anxiety/depression. no apparent hallucinations or other psychotic thought process. Laboratory Laboratory Tests Test 05/24/16 05/24/16 05/25/16 14:30 16:45 03:31 Urine Color YELLOW Urine Turbidity CLOUDY Urine pH 5.0 Urine Specific [place] 1.014 Urine Protein TRACE Urine Glucose (UA) NEG Urine Ketones NEG Urine Occult Blood SMALL Urine Nitrite NEG Urine Bilirubin NEG Urine Urobilinogen LESS THAN 2.0 Urine Leukocyte Esterase LARGE Urine RBC 31 Urine WBC Urine WBC Clumps FEW Urine Bacteria OCC Urine Mucus FEW Microscopic Urinalysis Comment CATH-CULTURE IND Sodium Level 133 138 Potassium Level 5.4 4.5 Chloride Level 101 106 Carbon Dioxide Level 22.7 20.7 Anion Gap 9 11 Blood Urea Nitrogen 92 77 Creatinine 3.76 2.87 Estimat Glomerular Filtration 16 22 Rate Random Glucose 107 85 Calcium Level 7.9 8.2 Total Bilirubin 0.4 0.3 Aspartate Amino Transf 16 15 (AST/SGOT) Alanine Aminotransferase 39 37 (ALT/SGPT) Alkaline Phosphatase 79 74 Total Protein 6.5 6.2 Albumin 2.8 2.6 White Blood Count 8.3 Red Blood Count 2.67 Hemoglobin 8.2 Hematocrit 24.0 Mean Corpuscular Volume 89.9 Mean Corpuscular Hemoglobin 30.9 Mean Corpuscular Hemoglobin 34.3 Concent Red Cell Distribution Width 16.7 Platelet Count 149 Mean Platelet Volume 7.8 Neutrophils (%) (Auto) 74.3 Lymphocytes (%) (Auto) 12.8 Monocytes (%) (Auto) 10.4 Eosinophils (%) (Auto) 2.0 Basophils (%) (Auto) 0.5 Neutrophils # (Auto) 6.1 Lymphocytes # (Auto) 1.1 Monocytes # (Auto) 0.9 Eosinophils # (Auto) 0.2 Basophils # (Auto) 0.0 CBC Comment DIFF FINAL Differential Comment Prothrombin Time 39.8 Prothromb Time International 3.4 Ratio Magnesium Level 2.3 Date/Time Procedure Status Source Growth 05/24/16 19:00 Gram Stain - Final Resulted Abscess Foot 05/24/16 19:00 Wound Culture Resulted Abscess Foot Pending 05/24/16 18:23 Gram Stain Received Wound Foot Pending 05/24/16 18:23 Wound Culture Received Wound Foot Pending 05/24/16 14:30 Urine Culture - Preliminary Resulted Urine Catheterized Urine IMMATURE GROWTH - REINCUBATE 05/24/16 12:30 Aerobic Blood Culture - Preliminary Resulted Blood Peripheral NO GROWTH IN 1 DAY 05/24/16 12:30 Anaerobic Blood Culture - Preliminary Resulted Blood Peripheral NO GROWTH IN 1 DAY Result Diagram: 05/25/16 0331 05/25/16 0331 Imaging Last Impressions Chest X-Ray 05/25/16 0000 Signed Impressions: Service Date/Time: May 05:03 - CONCLUSION: Stable areas of mild atelectasis or scarring at the bilateral lungs. Bret Schilling MD Head CT 05/24/16 1217 Signed Impressions: Service Date/Time: Tuesday, May 24, 2016 12:55 - CONCLUSION: 1. No acute intracranial abnormality. 2. Atrophy. 3. Chronic small vessel ischemic change. Juvenal Jarquin Jr., MD Assessment and Plan Assessment and Plan DFI DM and PVD tobaccoism sp seizure Hypotension, leukocytosis ?UTI -cont broad spectrum abx - fu clx - agree with podiatry consult Discussed Condition With Isabella Davidson MD May 25, 2016 14:19
--- NOTE | 2016-05-25 14:45 | EKG ---
Date Performed: 05/24/2016 Time Performed: 13:20:58 PTAGE: 65 years EKG: SINUS BRADYCARDIA ST ELEVATION, CONSIDER INFERIOR INJURY ACUTE IN PREVIOUS TRACING : 03/29/2016 00.18 Since previous tracing, no significant change noted DOCTOR: Horace Ledesma Interpretating Date/Time 05/25/2016 14:42:36
[2016-05-25] MEDS: SODIUM CHLORIDE 0.9% IV SCH (16:29)
[2016-05-25] MEDS: CEFEPIME IV SCH (16:29)
[2016-05-25] MEDS: PIPERACIL-TAZO 3.375 GM PREMIX 50 ML IV SCH ×2 (16:30→20:12)
--- NOTE | 2016-05-25 21:21 | PD.POD ---
Subjective Podiatric Problems Ulcers L plantar lateral foot and R posterior leg Past Med/Surg/Social History Social History Smoking Status: Never Smoker Objective Vital Signs Vital Signs Date Time Temp Pulse Resp B/P Pulse Ox O2 Delivery O2 Flow Rate FiO2 05/25/16 18:00 82 05/25/16 16:00 98.1 74 25 81/47 100 05/25/16 16:00 71 05/25/16 14:00 73 05/25/16 12:00 97.6 70 22 121/63 100 05/25/16 12:00 80 05/25/16 10:52 100 Nasal Cannula 1.00 05/25/16 10:00 63 05/25/16 08:00 66 05/25/16 08:00 97.6 63 16 108/54 100 05/25/16 06:00 61 05/25/16 04:00 63 05/25/16 04:00 98.5 65 17 115/55 100 05/25/16 02:00 65 05/25/16 00:00 98.1 67 18 82/43 100 05/25/16 00:00 67 05/24/16 23:35 84/45 05/24/16 23:30 79/43 05/24/16 22:00 84 Coded Allergies: *MDRO Multi-Drug Resistant Organism (Verified Adverse Reaction, Unknown, 05/07/16) MRSA (toe wound) - 01/27/16 Physical Exam Remarks unchanged, dressing being changed daily per nursing bilaterally Assessment & Plan A/P Ulcers L plantar lateral foot and R posterior leg Continue daily dressing changes Will monitor weekly while patient in-house. Patient needs to follow up outpatient upon d/c in office or wound care center for continued wound debridement Jeremy Mackay DPM May 25, 2016 21:21
[2016-05-26] VITALS (14 sets, daily range): BP systolic 86–130; BP diastolic 47–63; PULSE 58–83; RESP 18–22; TEMP 97.5–97.9; O2SAT 96–100
[2016-05-26] MEDS: ACETAMINOPHEN/HYDROcodone 325 MG/5 MG TAB PO PRN ×3 (03:43→21:39)
[2016-05-26] MEDS: CHLORHEXIDINE GLUCONATE 2 % 1 PACK (2 CLOTHS) TOP SCH (03:43)
[2016-05-26] MEDS: PIPERACIL-TAZO 3.375 GM PREMIX 50 ML IV SCH ×3 (03:45→20:01)
[2016-05-26 05:19] LABS: AUTOMATED NEUTROPHIL # 4.2 TH/MM3 (1.8-7.7); BASOPHIL # 0.1 TH/MM3 (0-0.2); EOSINOPHIL # 0.2 TH/MM3 (0-0.4); EOSINOPHIL % 3.9 % (0.0-4.0); LYMPH % 14.5 % (9.0-44.0); LYMPHOCYTE # 0.9 TH/MM3 (1.0-4.8); MEAN CELL VOLUME 90.4 FL (80.0-100.0); MEAN CORPUSCULAR HEMOGLOBIN 30.9 PG (27.0-34.0); MEAN CORPUSCULAR HGB CONC 34.2 % (32.0-36.0); MONO % 9.9 % (0.0-8.0); NEUT % 70.7 % (16.0-70.0); PLATELET COUNT 124 TH/MM3 (150-450); RED BLOOD COUNT 2.19 MIL/MM3 (4.50-5.90); WHITE BLOOD COUNT 5.9 TH/MM3 (4.0-11.0)
[2016-05-26 05:21] LABS: INTERNATIONAL NORMALIZED RATIO 2.5 RATIO; PROTHROMBIN TIME - PATIENT 28.7 SEC (9.8-11.6)
[2016-05-26 05:24] LABS: HEMO FLAGS AUTO DIFF
[2016-05-26 05:27] LABS: HEMATOCRIT 19.8 % (39.0-51.0)
[2016-05-26 05:47] LABS: BICARBONATE 25.3 MEQ/L (21.0-32.0)
[2016-05-26] MEDS: INSULIN ASPART SUPPLEMENTAL SCALE SQ SCH ×4 (06:00→18:00)
[2016-05-26] MEDS ORDERED: SODIUM CHLOR 0.9% 250 ML INJ 250 ML IV ONE (06:00)
[2016-05-26] MEDS ORDERED: FUROSEMIDE 20 MG/2 ML VIAL IV ONE (06:00)
[2016-05-26] MEDS ORDERED: PHARMACY ORDERED LAB XX ONE (06:00)
[2016-05-26] MEDS: COLLAGENASE OINT 30 GM TUBE TOP SCH (09:39)
[2016-05-26] MEDS: SODIUM CHLORIDE 0.9% FLUSH 5 ML FLUSH IV FLUSH SCH ×2 (09:39→20:01)
[2016-05-26] MEDS: PANTOPRAZOLE SODIUM 40 MG VIAL IV SCH (09:39)
[2016-05-26] MEDS: SODIUM CHLOR 0.9% 1000 ML INJ 1,000 ML IV SCH ×3 (09:40→20:02)
[2016-05-26 10:13] LABS: SCAN/DIFF AUTO DIFF CONFIRMED
[2016-05-26] MEDS: VANCOMYCIN INJ 1,250 MG in SODIUM CHLOR 0.9% 250 ML INJ 250 ML IV SCH (11:45)
--- NOTE | 2016-05-26 15:33 | HHI.PR ---
Subjective Remarks Patient seen and evaluated for hypotension and anemia. Discussed with Patient and RN. patient feels better, BP a bit low. Bleeding from foot debridement has stopped. No new complaints. Objective Vitals Vital Signs Date Time Temp Pulse Resp B/P Pulse Ox O2 Delivery O2 Flow Rate FiO2 05/26/16 14:00 65 05/26/16 12:00 65 05/26/16 12:00 97.8 58 19 108/53 100 05/26/16 10:00 65 05/26/16 09:09 99 Nasal Cannula 2.00 05/26/16 08:00 67 05/26/16 08:00 97.5 59 18 94/47 100 05/26/16 06:00 62 05/26/16 04:00 97.7 67 22 118/56 98 05/26/16 04:00 67 05/26/16 02:00 66 05/26/16 00:00 97.9 67 18 86/48 96 05/26/16 00:00 67 05/25/16 22:00 70 05/25/16 20:00 77 05/25/16 20:00 98.3 77 24 94/54 100 05/25/16 19:28 98 Nasal Cannula 2.00 05/25/16 18:00 82 05/25/16 16:00 98.1 74 25 81/47 100 05/25/16 16:00 71 I/O 05/25/16 05/25/16 05/25/16 05/26/16 05/26/16 05/26/16 07:00 15:00 23:00 07:00 15:00 23:00 Intake Total 1183 ml 1636 ml 1514 ml 1272 ml 2208 ml Output Total 1325 ml 1350 ml 1250 ml 700 ml 1500 ml Balance -142 ml 286 ml 264 ml 572 ml 708 ml Intake Oral 30 ml 360 ml 375 ml 250 ml 420 ml IV Total 1153 ml 1276 ml 1139 ml 1022 ml 1788 ml Output Urine Total 1325 ml 1350 ml 1250 ml 700 ml 1500 ml # Bowel Movements 0 1 0 0 1 Result Diagram: 05/26/16 0424 05/26/16 0424 Imaging Last Impressions Chest X-Ray 05/25/16 0000 Signed Impressions: Service Date/Time: May 05:03 - CONCLUSION: Stable areas of mild atelectasis or scarring at the bilateral lungs. Bret Schilling MD Head CT 05/24/16 1217 Signed Impressions: Service Date/Time: Tuesday, May 24, 2016 12:55 - CONCLUSION: 1. No acute intracranial abnormality. 2. Atrophy. 3. Chronic small vessel ischemic change. Juvenal Jarquin Jr., MD Objective Remarks GENERAL: This is a well-nourished, well-developed patient, frail male CARDIOVASCULAR: Regular rate and rhythm without murmurs, gallops, or rubs. RESPIRATORY: Clear to auscultation. Breath sounds equal bilaterally. No wheezes , rales, or rhonchi. GASTROINTESTINAL: Abdomen soft, non-tender, nondistended. Normal active bowel sounds MUSCULOSKELETAL: Extremities upper wnl, lower with partial toe amputations, R posterior lower leg has ulceration 6cm x 4cm with central necrotic tissue over exposed achilles tendon. There is currently no purulence noted. NEURO: Alert & Oriented x4 to person, place, time, situation. Moves all ext x4 A/P Assessment and Plan 1.Severe sepsis due to UTI, on vanco, cefepime and zosyn. Yeast in Cultures, ID following 2. Coagulopathy, 2.5 INR on Coumadin for afib 3. Type 2 diabetes, Sliding-scale insulin for diabetes, controlled 4. Anemia, Hg 6.8. transfuse two units today, no visible bleeding from foot anymore (05/24, Podiatry Ulcers excisionally debrided of necrotic and fibrotic tissue down to tendon R leg with subsequent 2hrs of bleeding) 5. MERRY, improved with IVF and follow, avoid nephrotoxins 6. Hypotension, likely dehydrated, off pressors. 7. Foot ulcers, cultures pending, chronic PAD. Discharge Planning watch in icu today if bp stable transfer to floor tomorrow d/w [employer] Sena,Vandana Dyer MD May 26, 2016 15:33
[2016-05-26] MEDS: CEFEPIME 1000 MG/NS 100 ML IV SCH ×2 (15:36)
[2016-05-26 19:19] LABS: HEMATOCRIT 27.7 % (39.0-51.0); REVIEW FLAG FINAL
--- NOTE | 2016-05-26 21:07 | HHI.IDPN ---
Subjective Subjective Remarks Urine grows yeast, L foot clx growing MRSA afebrile no new co on NC O2 Antibiotics cefpeime vancomycin Allergies: Coded Allergies: *MDRO Multi-Drug Resistant Organism (Verified Adverse Reaction, Unknown, 05/26/16) MRSA (toe wound) - 01/27/16 MRSA PCR Screen POSITIVE - 05/26/16 Objective . Vital Signs Date Time Temp Pulse Resp B/P Pulse Ox O2 Delivery O2 Flow Rate FiO2 05/26/16 20:00 97.9 64 22 127/58 100 05/26/16 20:00 64 05/26/16 18:00 64 05/26/16 16:00 64 05/26/16 16:00 97.8 63 18 130/63 100 05/26/16 14:00 65 05/26/16 12:00 65 05/26/16 12:00 97.8 58 19 108/53 100 05/26/16 10:00 65 05/26/16 09:09 99 Nasal Cannula 2.00 05/26/16 08:00 67 05/26/16 08:00 97.5 59 18 94/47 100 05/26/16 06:00 62 05/26/16 04:00 97.7 67 22 118/56 98 05/26/16 04:00 67 05/26/16 02:00 66 05/26/16 00:00 97.9 67 18 86/48 96 05/26/16 00:00 67 05/25/16 22:00 70 05/25/16 05/25/16 05/26/16 15:00 23:00 07:00 Intake Total 1636 ml 1514 ml 1272 ml Output Total 1350 ml 1250 ml 700 ml Balance 286 ml 264 ml 572 ml Intake Oral 360 ml 375 ml 250 ml IV Total 1276 ml 1139 ml 1022 ml Output Urine Total 1350 ml 1250 ml 700 ml # Bowel Movements 1 0 0 . Laboratory Tests Test 05/25/16 05/26/16 05/26/16 03:31 04:24 18:55 White Blood Count 8.3 TH/MM3 5.9 TH/MM3 Red Blood Count 2.67 MIL/MM3 2.19 MIL/MM3 Hemoglobin 8.2 GM/DL 6.8 GM/DL 9.7 GM/DL Hematocrit 24.0 % 19.8 % 27.7 % Mean Corpuscular Volume 89.9 FL 90.4 FL Mean Corpuscular Hemoglobin 30.9 PG 30.9 PG Mean Corpuscular Hemoglobin 34.3 % 34.2 % Concent Red Cell Distribution Width 16.7 % 17.0 % Platelet Count 149 TH/MM3 124 TH/MM3 Mean Platelet Volume 7.8 FL 7.6 FL Neutrophils (%) (Auto) 74.3 % 70.7 % Lymphocytes (%) (Auto) 12.8 % 14.5 % Monocytes (%) (Auto) 10.4 % 9.9 % Eosinophils (%) (Auto) 2.0 % 3.9 % Basophils (%) (Auto) 0.5 % 1.0 % Neutrophils # (Auto) 6.1 TH/MM3 4.2 TH/MM3 Lymphocytes # (Auto) 1.1 TH/MM3 0.9 TH/MM3 Monocytes # (Auto) 0.9 TH/MM3 0.6 TH/MM3 Eosinophils # (Auto) 0.2 TH/MM3 0.2 TH/MM3 Basophils # (Auto) 0.0 TH/MM3 0.1 TH/MM3 CBC Comment DIFF FINAL AUTO DIFF Differential Comment AUTO DIFF CONFIRMED Laboratory Tests Test 05/25/16 05/26/16 03:31 04:24 Sodium Level 138 MEQ/L 141 MEQ/L Potassium Level 4.5 MEQ/L 4.0 MEQ/L Chloride Level 106 MEQ/L 107 MEQ/L Carbon Dioxide Level 20.7 MEQ/L 25.3 MEQ/L Anion Gap 11 MEQ/L 9 MEQ/L Blood Urea Nitrogen 77 MG/DL 44 MG/DL Creatinine 2.87 MG/DL 1.71 MG/DL Estimat Glomerular Filtration 22 ML/MIN 40 ML/MIN Rate Random Glucose 85 MG/DL 86 MG/DL Calcium Level 8.2 MG/DL 7.8 MG/DL Magnesium Level 2.3 MG/DL Total Bilirubin 0.3 MG/DL Aspartate Amino Transf 15 U/L (AST/SGOT) Alanine Aminotransferase 37 U/L (ALT/SGPT) Alkaline Phosphatase 74 U/L Total Protein 6.2 GM/DL Albumin 2.6 GM/DL Microbiology Date/Time Procedure Status Source Growth 05/24/16 11:25 Aerobic Blood Culture - Preliminary Resulted Blood Peripheral NO GROWTH IN 2 DAYS 05/24/16 11:25 Anaerobic Blood Culture - Preliminary Resulted Blood Peripheral NO GROWTH IN 2 DAYS 05/24/16 12:30 Aerobic Blood Culture - Preliminary Resulted Blood Peripheral NO GROWTH IN 2 DAYS 05/24/16 12:30 Anaerobic Blood Culture - Preliminary Resulted Blood Peripheral NO GROWTH IN 2 DAYS 05/24/16 14:30 Urine Culture - Preliminary Resulted Urine Catheterized Urine Yeast-Id To Follow 05/24/16 18:20 Gram Stain - Final Resulted Wound Foot 05/24/16 18:20 Wound Culture - Preliminary Resulted S. Aureus Mrsa 05/24/16 18:23 Gram Stain Received Wound Foot Pending 05/24/16 18:23 Wound Culture Received Wound Foot Pending 05/24/16 19:00 Gram Stain - Final Complete Abscess Foot 05/24/16 19:00 Wound Culture - Final Complete Abscess Foot HEAVY GROWTH NORMAL SKIN ANKIT... Imaging Last Impressions Chest X-Ray 05/25/16 0000 Signed Impressions: Service Date/Time: May 05:03 - CONCLUSION: Stable areas of mild atelectasis or scarring at the bilateral lungs. Bret Schilling MD Head CT 05/24/16 1217 Signed Impressions: Service Date/Time: Tuesday, May 24, 2016 12:55 - CONCLUSION: 1. No acute intracranial abnormality. 2. Atrophy. 3. Chronic small vessel ischemic change. Juvenal Jarquin Jr., MD Physical Exam CONSTITUTIONAL/GENERAL: This is an obese elderly patient, in no apparent distress. SKIN: No jaundice, rashes, or lesions. Skin temperature appropriate. Not diaphoretic. EYES: Pupils equal and round and reactive. Extraocular motions intact. No scleral icterus. No injection or drainage. Fundi not examined. ENT: Ora mucosae moist without visible erythema, exudates, masses, or lesions. Edentulous CARDIOVASCULAR: Regular rate and rhythm without murmurs, gallops, or rubs. No JVD. Peripheral pulses symmetric. RESPIRATORY/CHEST: Symmetric, unlabored respirations. Clear to auscultation. Breath sounds equal bilaterally. No wheezes, rales, or rhonchi. GASTROINTESTINAL: Abdomen soft, non-tender, nondistended. No hepato-splenomegaly , or palpable masses. No guarding. Bowel sounds present. GENITOURINARY: Without palpable bladder distension. Chase catheter in place with clear yellow urine MUSCULOSKELETAL: Extremities without clubbing, cyanosis, dressings in place b/l feet NEUROLOGICAL: Awake and alert. Motor and sensory grossly within normal limits. Follows commands. Cognitively sharp. Moves all extremities. Assessment & Plan Remarks DFI DM and PVD tobaccoism sp seizure Hypotension, leukocytosis ?UTI, funguria ? significance ARF - improving -cont broad spectrum abx - fu clx - add fluconazole - repeat UA, C+S Isabella Ledesma MD May 26, 2016 21:07
[2016-05-27] VITALS (14 sets, daily range): BP systolic 113–150; BP diastolic 56–79; PULSE 52–88; RESP 15–25; TEMP 97.6–98; O2SAT 94–100
[2016-05-27] MEDS: SODIUM CHLOR 0.9% 1000 ML INJ 1,000 ML IV SCH ×4 (02:33→22:33)
[2016-05-27] MEDS: CHLORHEXIDINE GLUCONATE 2 % 1 PACK (2 CLOTHS) TOP SCH (04:00)
[2016-05-27] MEDS: PIPERACIL-TAZO 3.375 GM PREMIX 50 ML IV SCH ×3 (04:27→21:09)
[2016-05-27] MEDS: INSULIN ASPART SUPPLEMENTAL SCALE SQ SCH ×4 (06:00→17:41)
[2016-05-27] MEDS: PANTOPRAZOLE SODIUM 40 MG VIAL IV SCH (08:45)
[2016-05-27] MEDS: FLUCONAZOLE 200 MG TAB PO SCH (08:45)
[2016-05-27] MEDS: SODIUM CHLORIDE 0.9% FLUSH 5 ML FLUSH IV FLUSH SCH ×2 (08:46→21:09)
[2016-05-27 11:09] LABS: INTERNATIONAL NORMALIZED RATIO 1.8 RATIO
[2016-05-27] MEDS: ACETAMINOPHEN/HYDROcodone 325 MG/5 MG TAB PO PRN ×2 (12:49→21:10)
[2016-05-27] MEDS: VANCOMYCIN INJ 1,250 MG in SODIUM CHLOR 0.9% 250 ML INJ 250 ML IV SCH (13:09)
--- NOTE | 2016-05-27 13:48 | HHI.PR ---
Subjective Remarks Patient seen in follow up for sepsis. Doing better. BP stable after transfusion. No further bleeding. D/W [employer]. Objective Vitals Vital Signs Date Time Temp Pulse Resp B/P Pulse Ox O2 Delivery O2 Flow Rate FiO2 05/27/16 08:25 98 Nasal Cannula 2.00 05/27/16 08:25 98 Nasal Cannula 2.00 05/27/16 06:00 52 05/27/16 04:00 97.6 88 19 144/79 94 05/27/16 04:00 52 05/27/16 02:00 56 05/27/16 00:00 97.8 55 15 113/56 100 05/27/16 00:00 55 05/26/16 22:31 100 Nasal Cannula 2.00 05/26/16 22:00 83 05/26/16 20:00 97.9 64 22 127/58 100 05/26/16 20:00 64 05/26/16 18:00 64 05/26/16 16:00 64 05/26/16 16:00 97.8 63 18 130/63 100 05/26/16 14:00 65 I/O 05/26/16 05/26/16 05/26/16 05/27/16 05/27/16 05/27/16 07:00 15:00 23:00 07:00 15:00 23:00 Intake Total 1272 ml 2208 ml 1527 ml 1118 ml Output Total 700 ml 1500 ml 1400 ml 800 ml Balance 572 ml 708 ml 127 ml 318 ml Intake Oral 250 ml 420 ml 480 ml 210 ml IV Total 1022 ml 1788 ml 1047 ml 908 ml Output Urine Total 700 ml 1500 ml 1400 ml 800 ml # Bowel Movements 0 1 Result Diagram: 05/26/16 1855 05/27/16 0426 Objective Remarks GENERAL: This is a well-nourished, well-developed patient, frail male CARDIOVASCULAR: Regular rate and rhythm without murmurs, gallops, or rubs. RESPIRATORY: Clear to auscultation. Breath sounds equal bilaterally. No wheezes , rales, or rhonchi. GASTROINTESTINAL: Abdomen soft, non-tender, nondistended. Normal active bowel sounds MUSCULOSKELETAL: Extremities upper wnl, lower with partial toe amputations, R posterior lower leg has ulceration 6cm x 4cm with central necrotic tissue over exposed achilles tendon. There is currently no purulence noted. NEURO: Alert & Oriented x4 to person, place, time, situation. Moves all ext x4 A/P Problem List: (1) Severe sepsis ICD Code: A41.9 Status: Acute (2) Acute metabolic encephalopathy ICD Code: G93.41 Status: Acute (3) Hyperkalemia ICD Code: E87.5 Status: Acute (4) Dehydration ICD Code: E86.0 Status: Acute (5) Acute renal failure ICD Code: N17.9 Status: Acute (6) UTI (urinary tract infection) ICD Code: N39.0 Status: Acute (7) Supratherapeutic INR ICD Code: R79.1 Status: Acute (8) Leukocytosis ICD Code: D72.829 Status: Acute (9) CAD (coronary artery disease) ICD Code: I25.10 Status: Acute (10) PAD (peripheral artery disease) ICD Code: I73.9 Status: Acute (11) Afib ICD Code: I48.91 Status: Chronic (12) CHF (congestive heart failure) ICD Code: I50.9 Status: Acute (13) Diabetic foot ulcers ICD Code: E11.621 Status: Acute Assessment and Plan 1.Severe sepsis due to UTI, on vanco, cefepime and zosyn. Yeast in Cultures, on fluconazole 2. Coagulopathy, 1.8 INR on Coumadin for afib 3. Type 2 diabetes, Sliding-scale insulin for diabetes, controlled 4. Anemia, Hg 9.7 transfuse two units today, (05/24, Podiatry Ulcers excisionally debrided of necrotic and fibrotic tissue down to tendon R leg with subsequent 2hrs of bleeding) 5. MERRY, improved with IVF and relief of retention. follow, avoid nephrotoxin resolved; Patient with urinary retention on admission (800ml in catheter), ptn poorly ambulatory 6. Hypotension, resolved 7. Foot ulcers, cultures +MRSA, chronic PAD. Discharge Planning ransfer to floor d/w [employer] Problem Qualifiers (1) Acute renal failure: Qualified Code: N17.9 - Acute renal failure, unspecified acute renal failure type (2) UTI (urinary tract infection): (3) CAD (coronary artery disease): (4) Diabetic foot ulcers: Vandana Sena MD May 27, 2016 13:48
[2016-05-27] MEDS: WARFARIN SOD 1 MG TAB PO SCH (17:36)
[2016-05-27] MEDS: WARFARIN SOD 5 MG TAB PO SCH (17:36)
[2016-05-27] MEDS: CEFEPIME 1000 MG/NS 100 ML IV SCH ×2 (17:36)
[2016-05-27] MEDS: COLLAGENASE OINT 30 GM TUBE TOP SCH (17:37)
[2016-05-28] VITALS (7 sets, daily range): BP systolic 129–161; BP diastolic 60–75; PULSE 55–88; RESP 18–20; TEMP 97.7–98.7; O2SAT 97–100
[2016-05-28 01:08] LABS: BACTERIA, URINE MANY /hpf; BLOOD, URINE MOD (NEG); COMMENT (UR) CULTURE INDICATED; CULTURE IF INDICATED CULTURE INDICATED; GLUCOSE,URINE NEG (NEG); KETONE, URINE NEG (NEG); MUCUS URINE FEW /lpf (OCC); NITRITE,URINE NEG (NEG); PH, URINE 5.5 (5.0-8.5); SQUAMOUS EPITHELIAL CELL URINE 3 /hpf (0-5); URINE COLOR YELLOW (YELLW/STRAW)
[2016-05-28] MEDS: CHLORHEXIDINE GLUCONATE 2 % 1 PACK (2 CLOTHS) TOP SCH (04:00)
[2016-05-28] MEDS: SODIUM CHLOR 0.9% 1000 ML INJ 1,000 ML IV SCH ×3 (05:13→22:07)
[2016-05-28] MEDS: PIPERACIL-TAZO 3.375 GM PREMIX 50 ML IV SCH ×3 (05:35→22:06)
[2016-05-28] MEDS: INSULIN ASPART SUPPLEMENTAL SCALE SQ SCH ×4 (06:00→17:03)
[2016-05-28 07:58] LABS: HEMATOCRIT 25.1 % (39.0-51.0); MEAN CELL VOLUME 88.4 FL (80.0-100.0); MEAN CORPUSCULAR HEMOGLOBIN 30.8 PG (27.0-34.0); MEAN CORPUSCULAR HGB CONC 34.9 % (32.0-36.0); PLATELET COUNT 124 TH/MM3 (150-450); RED BLOOD COUNT 2.84 MIL/MM3 (4.50-5.90); RED CELL DISTRIBUTION WIDTH 16.5 % (11.6-17.2); REVIEW FLAG FINAL; WHITE BLOOD COUNT 6.8 TH/MM3 (4.0-11.0)
[2016-05-28 08:07] LABS: INTERNATIONAL NORMALIZED RATIO 1.5 RATIO; PROTHROMBIN TIME - PATIENT 17.1 SEC (9.8-11.6)
[2016-05-28 08:16] LABS: BICARBONATE 25.1 MEQ/L (21.0-32.0); POTASSIUM 3.6 MEQ/L (3.5-5.1)
[2016-05-28] MEDS: PANTOPRAZOLE SODIUM 40 MG VIAL IV SCH (08:53)
[2016-05-28] MEDS: FLUCONAZOLE 200 MG TAB PO SCH (08:53)
[2016-05-28] MEDS: COLLAGENASE OINT 30 GM TUBE TOP SCH (09:00)
[2016-05-28] MEDS: SODIUM CHLORIDE 0.9% FLUSH 5 ML FLUSH IV FLUSH SCH ×2 (09:00→22:07)
[2016-05-28] MEDS: VANCOMYCIN INJ 1,250 MG in SODIUM CHLOR 0.9% 250 ML INJ 250 ML IV SCH (11:53)
[2016-05-28] MEDS: CEFEPIME 1000 MG/NS 100 ML IV SCH ×4 (13:36→22:06)
--- NOTE | 2016-05-28 14:06 | HHI.PR ---
Subjective Remarks patient seen in follow up for sepsis, uti. BP better, patient comfortable. No new events. Wounds examined Objective Vitals Vital Signs Date Time Temp Pulse Resp B/P Pulse Ox O2 Delivery O2 Flow Rate FiO2 05/28/16 08:00 97.7 56 20 129/60 100 05/28/16 07:15 Nasal Cannula 2.00 05/28/16 04:00 97.8 64 18 138/62 99 05/28/16 04:00 Nasal Cannula 2.00 05/28/16 00:15 98.0 58 18 142/63 98 05/28/16 00:15 Nasal Cannula 2.00 05/28/16 00:15 62 05/27/16 22:10 25 05/27/16 22:00 61 05/27/16 20:00 98.0 61 25 149/67 98 05/27/16 20:00 61 05/27/16 19:19 100 Nasal Cannula 2.00 05/27/16 18:00 66 05/27/16 16:00 60 05/27/16 16:00 97.7 66 22 143/65 100 I/O 05/27/16 05/27/16 05/27/16 05/28/16 05/28/16 05/28/16 07:00 15:00 23:00 07:00 15:00 23:00 Intake Total 1118 ml 3135 ml 1073 ml Output Total 800 ml 1850 ml 750 ml Balance 318 ml 1285 ml 323 ml Intake Oral 210 ml 720 ml 240 ml IV Total 908 ml 2415 ml 833 ml Output Urine Total 800 ml 1850 ml 750 ml # Bowel Movements 0 Result Diagram: 05/28/16 0700 05/28/16 0700 Objective Remarks GENERAL: This is a well-nourished, well-developed patient, frail male CARDIOVASCULAR: Regular rate and rhythm without murmurs, gallops, or rubs. RESPIRATORY: Clear to auscultation. Breath sounds equal bilaterally. No wheezes , rales, or rhonchi. GASTROINTESTINAL: Abdomen soft, non-tender, nondistended. Normal active bowel sounds MUSCULOSKELETAL: Extremities upper wnl, lower with partial toe amputations, R posterior lower leg has ulceration 6cm x 4cm with central necrotic tissue over exposed achilles tendon. There is currently no purulence noted. NEURO: Alert & Oriented x4 to person, place, time, situation. Moves all ext x4 A/P Assessment and Plan 1.Severe sepsis due to UTI, on vanco, cefepime and zosyn. Yeast in Cultures, on fluconazole, repeat UA pending 2. Coagulopathy, 1.5 INR on Coumadin for afib 3. Type 2 diabetes, Sliding-scale insulin for diabetes, controlled 4. Anemia, Hg 8.8 s/p transfusion, (05/24, Podiatry Ulcers excisionally debrided of necrotic and fibrotic tissue down to tendon R leg with subsequent 2hrs of bleeding) 5. MERRY, improved with IVF and relief of retention. follow, avoid nephrotoxin resolved; Patient with urinary retention on admission (800ml in catheter), ptn poorly ambulatory. Keep cabello in; out patient uro eval 6. Hypotension, resolved 7. Foot ulcers, cultures +MRSA, chronic PAD. Wound care daily Discharge Planning to rehab when cultures resulted d/w [employer] Sena,Vandana Dyer MD May 28, 2016 14:06
[2016-05-28] MEDS ORDERED: WARFARIN SOD 7.5 MG TAB PO ONE (16:00)
[2016-05-28] MEDS: TAMSULOSIN HCL 0.4 MG CAP PO SCH (17:02)
[2016-05-28] MEDS: ACETAMINOPHEN/HYDROcodone 325 MG/5 MG TAB PO PRN (22:07)
[2016-05-29] VITALS (9 sets, daily range): BP systolic 114–142; BP diastolic 58–65; PULSE 56–72; RESP 18–24; TEMP 97.4–98.9; O2SAT 97–100
[2016-05-29] MEDS: SODIUM CHLOR 0.9% 1000 ML INJ 1,000 ML IV SCH (02:20)
[2016-05-29] MEDS: CHLORHEXIDINE GLUCONATE 2 % 1 PACK (2 CLOTHS) TOP SCH (04:00)
[2016-05-29] MEDS: PIPERACIL-TAZO 3.375 GM PREMIX 50 ML IV SCH ×3 (05:19→20:39)
[2016-05-29] MEDS: INSULIN ASPART SUPPLEMENTAL SCALE SQ SCH ×5 (05:21→23:40)
[2016-05-29] MEDS: CEFEPIME 1000 MG/NS 100 ML IV SCH ×2 (08:46)
[2016-05-29] MEDS: FLUCONAZOLE 200 MG TAB PO SCH (08:47)
[2016-05-29] MEDS: SODIUM CHLORIDE 0.9% FLUSH 5 ML FLUSH IV FLUSH SCH ×2 (08:47→20:40)
[2016-05-29] MEDS: TAMSULOSIN HCL 0.4 MG CAP PO SCH (08:47)
[2016-05-29] MEDS: PANTOPRAZOLE SODIUM 40 MG VIAL IV SCH (08:47)
[2016-05-29 09:07] LABS: HEMATOCRIT 23.6 % (39.0-51.0); MEAN CORPUSCULAR HEMOGLOBIN 30.6 PG (27.0-34.0); MEAN CORPUSCULAR HGB CONC 34.4 % (32.0-36.0); PLATELET COUNT 121 TH/MM3 (150-450); RED BLOOD COUNT 2.65 MIL/MM3 (4.50-5.90); RED CELL DISTRIBUTION WIDTH 16.6 % (11.6-17.2); REVIEW FLAG FINAL; WHITE BLOOD COUNT 5.9 TH/MM3 (4.0-11.0)
[2016-05-29 09:23] LABS: INTERNATIONAL NORMALIZED RATIO 1.8 RATIO; PROTHROMBIN TIME - PATIENT 20.1 SEC (9.8-11.6)
[2016-05-29] MEDS ORDERED: PHARMACY ORDERED LAB XX ONE (11:45)
[2016-05-29] MEDS: VANCOMYCIN INJ 1,250 MG in SODIUM CHLOR 0.9% 250 ML INJ 250 ML IV SCH (12:21)
[2016-05-29] MEDS: COLLAGENASE OINT 30 GM TUBE TOP SCH (12:22)
--- NOTE | 2016-05-29 13:34 | HHI.PR ---
Subjective Remarks Patient seen and evaluated in follow-up today for sepsis, UTI. No events overnight. Doing well. Objective Vitals Vital Signs Date Time Temp Pulse Resp B/P Pulse Ox O2 Delivery O2 Flow Rate FiO2 05/29/16 08:08 97.7 59 20 142/65 100 05/29/16 04:00 98.3 60 19 114/63 100 05/29/16 04:00 Nasal Cannula 2.00 05/29/16 00:00 Nasal Cannula 2.00 05/29/16 00:00 97.9 62 18 121/58 97 05/28/16 20:00 Nasal Cannula 2.00 05/28/16 20:00 98.7 66 19 138/63 99 05/28/16 20:00 65 05/28/16 16:00 98.5 88 20 161/75 97 05/28/16 16:00 98.0 57 20 132/63 98 I/O 05/28/16 05/28/16 05/28/16 05/29/16 05/29/16 05/29/16 06:59 14:59 22:59 06:59 14:59 22:59 Intake Total 1073 ml 1205 ml 1303 ml 1093 ml Output Total 750 ml 1800 ml 300 ml 700 ml Balance 323 ml -595 ml 1003 ml 393 ml Intake Oral 240 ml 720 ml 180 ml 110 ml IV Total 833 ml 485 ml 1123 ml 983 ml Output Urine Total 750 ml 1800 ml 300 ml 700 ml # Voids 3 # Bowel Movements 2 1 Result Diagram: 05/29/16 0801 05/29/16 0801 Imaging Last Impressions Chest X-Ray 05/25/16 0000 Signed Impressions: Service Date/Time: May 05:03 - CONCLUSION: Stable areas of mild atelectasis or scarring at the bilateral lungs. Bret Schilling MD Head CT 05/24/16 1217 Signed Impressions: Service Date/Time: Tuesday, May 24, 2016 12:55 - CONCLUSION: 1. No acute intracranial abnormality. 2. Atrophy. 3. Chronic small vessel ischemic change. Juvenal Jarquin Jr., MD Objective Remarks GENERAL: This is a well-nourished, well-developed patient, frail male CARDIOVASCULAR: Regular rate and rhythm without murmurs, gallops, or rubs. RESPIRATORY: Clear to auscultation. Breath sounds equal bilaterally. No wheezes , rales, or rhonchi. GASTROINTESTINAL: Abdomen soft, non-tender, nondistended. Normal active bowel sounds MUSCULOSKELETAL: Extremities upper wnl, lower with partial toe amputations, R posterior lower leg has ulceration 6cm x 4cm with central necrotic tissue over exposed achilles tendon. There is currently no purulence noted. NEURO: Alert & Oriented x4 to person, place, time, situation. Moves all ext x4 A/P Problem List: (1) Severe sepsis ICD Code: A41.9 Status: Acute (2) Acute metabolic encephalopathy ICD Code: G93.41 Status: Acute (3) Hyperkalemia ICD Code: E87.5 Status: Acute (4) Dehydration ICD Code: E86.0 Status: Acute (5) Acute renal failure ICD Code: N17.9 Status: Acute (6) UTI (urinary tract infection) ICD Code: N39.0 Status: Acute (7) Supratherapeutic INR ICD Code: R79.1 Status: Acute (8) Leukocytosis ICD Code: D72.829 Status: Acute (9) CAD (coronary artery disease) ICD Code: I25.10 Status: Acute (10) PAD (peripheral artery disease) ICD Code: I73.9 Status: Acute (11) Afib ICD Code: I48.91 Status: Chronic (12) CHF (congestive heart failure) ICD Code: I50.9 Status: Acute (13) Diabetic foot ulcers ICD Code: E11.621 Status: Acute Assessment and Plan 1. Resolved. Severe sepsis due to UTI, on vanco, cefepime and zosyn. Yeast in Cultures, on fluconazole, repeat UA pending 2. Coagulopathy, 1.8 INR on Coumadin for afib 3. Type 2 diabetes, Sliding-scale insulin for diabetes, controlled 4. Anemia, Hg 8.8 s/p transfusion, (05/24, Podiatry Ulcers excisionally debrided of necrotic and fibrotic tissue down to tendon R leg with subsequent 2hrs of bleeding) 5. MERRY, improved with IVF and relief of retention. follow, avoid nephrotoxin resolved; Patient with urinary retention on admission (800ml in catheter), ptn poorly ambulatory. Keep cabello in; out patient uro eval 6. Hypotension, resolved 7. Foot ulcers, cultures +MRSA, chronic PAD. Wound care daily Discharge Planning dc telem to rehab when cultures resulted d/w [employer] Problem Qualifiers (1) Acute renal failure: Qualified Code: N17.9 - Acute renal failure, unspecified acute renal failure type (2) UTI (urinary tract infection): (3) CAD (coronary artery disease): (4) Diabetic foot ulcers: Vandana Sena MD May 29, 2016 13:33
[2016-05-29] MEDS ORDERED: BUMETANIDE INJ 1 MG/4 ML VIAL IV PUSH ONE (15:00)
[2016-05-29] MEDS: WARFARIN SOD 1 MG TAB PO SCH (15:45)
[2016-05-29] MEDS: WARFARIN SOD 5 MG TAB PO SCH (15:45)
[2016-05-30] MEDS: INSULIN ASPART SUPPLEMENTAL SCALE SQ SCH ×4 (05:56→23:41)
[2016-05-30] MEDS ORDERED: VANCOMYCIN INJ 1,250 MG in SODIUM CHLOR 0.9% 250 ML INJ 250 ML IV SCH (06:00)
[2016-05-30 06:03] VITALS: BP 158/68; PULSE 67; RESP 20; TEMP 97.8; O2SAT 99
[2016-05-30 07:24] LABS: INTERNATIONAL NORMALIZED RATIO 2.6 RATIO; PROTHROMBIN TIME - PATIENT 30.1 SEC (9.8-11.6)
[2016-05-30 08:00] VITALS: BP 151/67; PULSE 73; RESP 22; TEMP 97.7; O2SAT 99
[2016-05-30] MEDS: SODIUM CHLORIDE 0.9% FLUSH 5 ML FLUSH IV FLUSH SCH ×2 (09:16→23:39)
[2016-05-30] MEDS: PANTOPRAZOLE SOD 40 MG DELAYED RELEASE TAB PO SCH (09:17)
[2016-05-30] MEDS: FLUCONAZOLE 200 MG TAB PO SCH (09:17)
[2016-05-30] MEDS: COLLAGENASE OINT 30 GM TUBE TOP SCH (09:17)
[2016-05-30] MEDS: TAMSULOSIN HCL 0.4 MG CAP PO SCH (09:17)
--- NOTE | 2016-05-30 11:17 | HHI.PR ---
Subjective Remarks Follow-up sepsis 05/30/16-patient seen and examined, no acute event overnight and currently afebrile. Denies any chest pain or shortness of breath. Objective Vitals Vital Signs Date Time Temp Pulse Resp B/P Pulse Ox O2 Delivery O2 Flow Rate FiO2 05/30/16 08:00 97.7 73 22 151/67 99 05/30/16 06:03 97.8 67 20 158/68 99 05/29/16 23:12 98.7 65 22 135/62 100 05/29/16 20:45 Nasal Cannula 2.00 05/29/16 19:47 98.9 72 24 134/62 100 05/29/16 18:30 100 Nasal Cannula 2.00 05/29/16 16:05 97.9 59 20 124/60 100 05/29/16 12:07 97.4 58 20 134/60 100 I/O 05/29/16 05/29/16 05/29/16 05/30/16 05/30/16 05/30/16 07:00 15:00 23:00 07:00 15:00 23:00 Intake Total 1093 ml 480 ml 652 ml 360 ml Output Total 700 ml 1400 ml 550 ml 1250 ml Balance 393 ml -920 ml 102 ml -890 ml Intake Oral 110 ml 480 ml 600 ml 360 ml IV Total 983 ml 52 ml 0 ml Output Urine Total 700 ml 1400 ml 550 ml 1250 ml # Voids 0 # Bowel Movements 1 1 0 0 Result Diagram: 05/29/16 0801 05/30/16 0651 Imaging Last Impressions Chest X-Ray 05/25/16 0000 Signed Impressions: Service Date/Time: May 05:03 - CONCLUSION: Stable areas of mild atelectasis or scarring at the bilateral lungs. Bret Schilling MD Head CT 05/24/16 1217 Signed Impressions: Service Date/Time: Tuesday, May 24, 2016 12:55 - CONCLUSION: 1. No acute intracranial abnormality. 2. Atrophy. 3. Chronic small vessel ischemic change. Juvenal Jarquin Jr., MD Objective Remarks GENERAL: No acute distress SKIN: Warm and dry. HEAD: Normocephalic. EYES: No scleral icterus. No injection or drainage. NECK: Supple, trachea midline. No JVD or lymphadenopathy. CARDIOVASCULAR: Regular rate and rhythm without murmurs, gallops, or rubs. RESPIRATORY: Breath sounds equal bilaterally. No accessory muscle use. GASTROINTESTINAL: Abdomen soft, non-tender, nondistended. MUSCULOSKELETAL: No cyanosis, or edema. Dressing to bilateral foot BACK: Nontender without obvious deformity. No CVA tenderness. A/P Problem List: (1) Severe sepsis ICD Code: A41.9 Status: Acute (2) Acute metabolic encephalopathy ICD Code: G93.41 Status: Acute (3) Hyperkalemia ICD Code: E87.5 Status: Acute (4) Dehydration ICD Code: E86.0 Status: Acute (5) Acute renal failure ICD Code: N17.9 Status: Acute (6) UTI (urinary tract infection) ICD Code: N39.0 Status: Acute (7) Supratherapeutic INR ICD Code: R79.1 Status: Acute (8) Leukocytosis ICD Code: D72.829 Status: Acute (9) CAD (coronary artery disease) ICD Code: I25.10 Status: Acute (10) PAD (peripheral artery disease) ICD Code: I73.9 Status: Acute (11) Afib ICD Code: I48.91 Status: Chronic (12) CHF (congestive heart failure) ICD Code: I50.9 Status: Acute (13) Diabetic foot ulcers ICD Code: E11.621 Status: Acute Assessment and Plan 65-year-old male with 1. Resolved. Severe sepsis due to UTI, on vanco, cefepime and zosyn. Yeast in Cultures, on fluconazole, repeat UA pending 2. Coagulopathy, 1.8 INR on Coumadin for afib 3. Type 2 diabetes, Sliding-scale insulin for diabetes, controlled 4. Anemia, Hg 8.8 s/p transfusion, (05/24, Podiatry Ulcers excisionally debrided of necrotic and fibrotic tissue down to tendon R leg with subsequent 2hrs of bleeding) 5. MERRY, improved with IVF and relief of retention. follow, avoid nephrotoxin resolved; Keep cabello in; outpatient urology evaluation. 6. Hypotension, resolved 7. Foot ulcers, cultures +MRSA, chronic PAD. Wound care daily Problem Qualifiers (1) Acute renal failure: Qualified Code: N17.9 - Acute renal failure, unspecified acute renal failure type (2) UTI (urinary tract infection): (3) CAD (coronary artery disease): (4) Diabetic foot ulcers: Subhash To MD May 30, 2016 11:17
[2016-05-30 12:00] VITALS: BP 136/65; PULSE 60; RESP 18; TEMP 98.1; O2SAT 98
[2016-05-30 16:00] VITALS: BP 133/63; PULSE 64; RESP 22; TEMP 97.7; O2SAT 100
[2016-05-30 20:00] VITALS: BP 145/67; PULSE 75; RESP 18; TEMP 98.9; O2SAT 99
[2016-05-30] MEDS: VANCOMYCIN INJ 1,500 MG in SODIUM CHLORID 0.9% 500 ML INJ 500 ML IV SCH (23:40)
[2016-05-30] MEDS ORDERED: PHARMACY ORDERED LAB XX ONE (23:45)
[2016-05-31] VITALS (8 sets, daily range): BP systolic 97–172; BP diastolic 53–72; PULSE 55–86; RESP 16–24; TEMP 97.4–99.2; O2SAT 97–100
[2016-05-31] MEDS: INSULIN ASPART SUPPLEMENTAL SCALE SQ SCH ×3 (05:52→17:05)
[2016-05-31 07:19] LABS: INTERNATIONAL NORMALIZED RATIO 2.4 RATIO; PROTHROMBIN TIME - PATIENT 27.5 SEC (9.8-11.6)
[2016-05-31] MEDS: PANTOPRAZOLE SOD 40 MG DELAYED RELEASE TAB PO SCH (08:56)
[2016-05-31] MEDS: FLUCONAZOLE 200 MG TAB PO SCH (08:56)
[2016-05-31] MEDS: TAMSULOSIN HCL 0.4 MG CAP PO SCH (08:56)
[2016-05-31] MEDS: SODIUM CHLORIDE 0.9% FLUSH 5 ML FLUSH IV FLUSH SCH ×2 (08:56→20:44)
[2016-05-31] MEDS: COLLAGENASE OINT 30 GM TUBE TOP SCH (08:57)
--- NOTE | 2016-05-31 10:00 | HHI.PR ---
Subjective Remarks Follow-up sepsis 05/30/16-patient seen and examined, no acute event overnight and currently afebrile. Denies any chest pain or shortness of breath. 05/31/16-patient seen and examined. Afebrile. No complain and stable. Objective Vitals Vital Signs Date Time Temp Pulse Resp B/P Pulse Ox O2 Delivery O2 Flow Rate FiO2 05/31/16 08:00 97.4 55 24 136/62 99 05/31/16 04:09 97.8 64 18 119/56 99 05/31/16 00:00 98.5 64 18 97/53 99 05/30/16 22:00 Nasal Cannula 2.00 05/30/16 20:00 98.9 75 18 145/67 99 05/30/16 16:00 97.7 64 22 133/63 100 05/30/16 14:01 Nasal Cannula 2.00 05/30/16 12:00 98.1 60 18 136/65 98 I/O 05/30/16 05/30/16 05/30/16 05/31/16 05/31/16 05/31/16 06:59 14:59 22:59 06:59 14:59 22:59 Intake Total 360 ml 722 ml 506 ml 250 ml Output Total 1250 ml 1000 ml 800 ml 1300 ml Balance -890 ml -278 ml -294 ml -1050 ml Intake Oral 360 ml 720 ml 350 ml 250 ml IV Total 0 ml 2 ml 156 ml Output Urine Total 1250 ml 1000 ml 800 ml 1300 ml # Voids 0 # Bowel Movements 0 1 0 0 Result Diagram: 05/29/16 0801 05/31/16 0606 Objective Remarks GENERAL: No acute distress SKIN: Warm and dry. HEAD: Normocephalic. EYES: No scleral icterus. No injection or drainage. NECK: Supple, trachea midline. No JVD or lymphadenopathy. CARDIOVASCULAR: Regular rate and rhythm without murmurs, gallops, or rubs. RESPIRATORY: Breath sounds equal bilaterally. No accessory muscle use. GASTROINTESTINAL: Abdomen soft, non-tender, nondistended. MUSCULOSKELETAL: No cyanosis, or edema. Dressing to bilateral foot BACK: Nontender without obvious deformity. No CVA tenderness. A/P Problem List: (1) Severe sepsis ICD Code: A41.9 Status: Acute (2) Acute metabolic encephalopathy ICD Code: G93.41 Status: Acute (3) Hyperkalemia ICD Code: E87.5 Status: Acute (4) Dehydration ICD Code: E86.0 Status: Acute (5) Acute renal failure ICD Code: N17.9 Status: Acute (6) UTI (urinary tract infection) ICD Code: N39.0 Status: Acute (7) Supratherapeutic INR ICD Code: R79.1 Status: Acute (8) Leukocytosis ICD Code: D72.829 Status: Acute (9) CAD (coronary artery disease) ICD Code: I25.10 Status: Acute (10) PAD (peripheral artery disease) ICD Code: I73.9 Status: Acute (11) Afib ICD Code: I48.91 Status: Chronic (12) CHF (congestive heart failure) ICD Code: I50.9 Status: Acute (13) Diabetic foot ulcers ICD Code: E11.621 Status: Acute Assessment and Plan 65-year-old male with 1. Resolved. Severe sepsis due to UTI, on vanco, cefepime and zosyn. Yeast in Cultures, on fluconazole, 2. Coagulopathy, 2.4 INR on Coumadin for afib 3. Type 2 diabetes, Sliding-scale insulin for diabetes, controlled 4. Anemia, Hg 8.8 s/p transfusion, (05/24, Podiatry Ulcers excisionally debrided of necrotic and fibrotic tissue down to tendon R leg with subsequent 2hrs of bleeding) 5. MERRY, improved with IVF and relief of retention. follow, avoid nephrotoxin resolved; Keep cabello in; outpatient urology evaluation. 6. Hypotension, resolved 7. Foot ulcers, cultures +MRSA, chronic PAD. Wound care daily Problem Qualifiers (1) Acute renal failure: Qualified Code: N17.9 - Acute renal failure, unspecified acute renal failure type (2) UTI (urinary tract infection): (3) CAD (coronary artery disease): (4) Diabetic foot ulcers: Subhash To MD May 31, 2016 10:00
[2016-05-31] MEDS: WARFARIN SOD 4 MG TAB PO SCH (15:09)
[2016-05-31] MEDS: ACETAMINOPHEN/HYDROcodone 325 MG/5 MG TAB PO PRN (15:09)
[2016-05-31] MEDS: VANCOMYCIN INJ 1,500 MG in SODIUM CHLORID 0.9% 500 ML INJ 500 ML IV SCH (17:03)
--- NOTE | 2016-05-31 22:51 | HHI.IDPN ---
Subjective Subjective Remarks doing better no active co Antibiotics fluconazole vancomycin Allergies: Coded Allergies: *MDRO Multi-Drug Resistant Organism (Verified Adverse Reaction, Unknown, MRSA, 05/29/16) MRSA (toe wound) - 01/27/16; (foot) - 05/24/16 MRSA PCR Screen POSITIVE - 05/26/16 Objective . Vital Signs Date Time Temp Pulse Resp B/P Pulse Ox O2 Delivery O2 Flow Rate FiO2 05/31/16 20:00 97.9 70 22 172/71 100 05/31/16 17:48 99 Nasal Cannula 2.00 05/31/16 16:29 18 05/31/16 16:00 98.1 67 20 133/60 100 05/31/16 14:16 Nasal Cannula 2.00 05/31/16 12:00 98.2 67 20 162/72 99 05/31/16 11:10 99 Nasal Cannula 2.00 05/31/16 08:00 97.4 55 24 136/62 99 05/31/16 04:09 97.8 64 18 119/56 99 05/31/16 00:00 98.5 64 18 97/53 99 05/30/16 05/30/16 05/31/16 14:59 22:59 06:59 Intake Total 722 ml 506 ml 250 ml Output Total 1000 ml 800 ml 1300 ml Balance -278 ml -294 ml -1050 ml Intake Oral 720 ml 350 ml 250 ml IV Total 2 ml 156 ml Output Urine Total 1000 ml 800 ml 1300 ml # Bowel Movements 1 0 0 . Laboratory Tests Test 05/30/16 05/31/16 06:51 06:06 Creatinine 1.01 MG/DL 0.93 MG/DL Estimat Glomerular Filtration 74 ML/MIN 81 ML/MIN Rate Imaging Last Impressions Chest X-Ray 05/25/16 0000 Signed Impressions: Service Date/Time: May 05:03 - CONCLUSION: Stable areas of mild atelectasis or scarring at the bilateral lungs. Bret Schilling MD Head CT 05/24/16 1217 Signed Impressions: Service Date/Time: Tuesday, May 24, 2016 12:55 - CONCLUSION: 1. No acute intracranial abnormality. 2. Atrophy. 3. Chronic small vessel ischemic change. Juvenal Jarquin Jr., MD Physical Exam CONSTITUTIONAL/GENERAL: This is an obese elderly patient, in no apparent distress. SKIN: No jaundice, rashes, or lesions. Skin temperature appropriate. Not diaphoretic. EYES: No scleral icterus. No injection or drainage. ENT: Ora mucosae moist without visible erythema, exudates, masses, or lesions. Edentulous CARDIOVASCULAR: Regular rate and rhythm without murmurs, gallops, or rubs. RESPIRATORY/CHEST: Symmetric, unlabored respirations. Clear to auscultation. GASTROINTESTINAL: Abdomen soft, non-tender, nondistended. Bowel sounds present. GENITOURINARY: Without palpable bladder distension. Chase catheter in place with clear yellow urine MUSCULOSKELETAL: Extremities without clubbing, cyanosis, Ulcers of both feet are necrotic, no granulations, no signs of healing + small amount of edema NEUROLOGICAL: Awake and alert. Motor and sensory grossly within normal limits. Follows commands. speech normal Moves all extremities. 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 significance ARF - improving -cont vancomcyin - complete 7-10 days of fluconazole - repeat UA, C+S - consider to consult vascular surgery for this pt who shows no signs of healing Isabella Ledesma MD May 31, 2016 22:51
[2016-06-01] VITALS: BP 105/53; PULSE 64; RESP 20; TEMP 98.4; O2SAT 98
[2016-06-01 04:00] VITALS: BP 151/67; PULSE 59; RESP 20; TEMP 98; O2SAT 99
[2016-06-01] MEDS: INSULIN ASPART SUPPLEMENTAL SCALE SQ SCH ×5 (05:40→23:45)
[2016-06-01 07:24] LABS: INTERNATIONAL NORMALIZED RATIO 2.2 RATIO; PROTHROMBIN TIME - PATIENT 25.5 SEC (9.8-11.6)
[2016-06-01 08:00] VITALS: BP 147/70; PULSE 73; RESP 20; TEMP 98.1; O2SAT 93
[2016-06-01] MEDS: COLLAGENASE OINT 30 GM TUBE TOP SCH (09:03)
[2016-06-01] MEDS: SODIUM CHLORIDE 0.9% FLUSH 5 ML FLUSH IV FLUSH SCH ×2 (09:03→21:00)
[2016-06-01] MEDS: FLUCONAZOLE 200 MG TAB PO SCH (09:03)
[2016-06-01] MEDS: TAMSULOSIN HCL 0.4 MG CAP PO SCH (09:03)
[2016-06-01] MEDS: PANTOPRAZOLE SOD 40 MG DELAYED RELEASE TAB PO SCH (09:03)
--- NOTE | 2016-06-01 09:30 | PD.POD ---
Subjective Podiatric Problems Bilateral lower extremity ulcerations. The patient has had these wounds for several months and feels they have been improving since his admission to the hospital. The wounds a mildly painful. He denies any n/v/f/h/c/sob. Pain score: 3 Past Med/Surg/Social History Social History Smoking Status: Never Smoker Objective Vital Signs Vital Signs Date Time Temp Pulse Resp B/P Pulse Ox O2 Delivery O2 Flow Rate FiO2 06/01/16 08:00 98.1 73 20 147/70 93 06/01/16 04:00 98.0 59 20 151/67 99 06/01/16 00:00 98.4 64 20 105/53 98 05/31/16 20:00 97.9 70 22 172/71 100 05/31/16 19:45 Nasal Cannula 2.00 05/31/16 17:48 99 Nasal Cannula 2.00 05/31/16 16:29 18 05/31/16 16:00 98.1 67 20 133/60 100 05/31/16 14:16 Nasal Cannula 2.00 05/31/16 12:00 98.2 67 20 162/72 99 05/31/16 11:10 99 Nasal Cannula 2.00 Coded Allergies: *MDRO Multi-Drug Resistant Organism (Verified Adverse Reaction, Unknown, MRSA, 05/29/16) MRSA (toe wound) - 01/27/16; (foot) - 05/24/16 MRSA PCR Screen POSITIVE - 05/26/16 Exam-Podiatry Remarks Vasc-non palpable pulses, skin is cool to touch, CFT < 3 secs Biomechanical: decreased strength, muscle atrophy noted, 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 Right posterior achilles wound 5cm x 2.5 cm x 0, mixed necrotic/ fibrotic/granular, exposed achilles tendon, no erythema, no malodor, mild serous drainage Assessment & Plan A/P 1) bilateral stage 2/3 LE ulcerations -con't daily wound care with santyl and dry dressing -would benefit from a vascular eval, non emergent can be done as inpt or outpt -wounds are stable and pt is ok to d/c from a podiatry stand point -f/u with Dr.Hilaree Mackay 1 week after d/c Lilly Anaya DPM Jun 01, 2016 09:29
--- NOTE | 2016-06-01 09:47 | HHI.PR ---
Subjective Remarks Follow-up sepsis 05/30/16-patient seen and examined, no acute event overnight and currently afebrile. Denies any chest pain or shortness of breath. 05/31/16-patient seen and examined. Afebrile. No complain and stable. 06/01/16-patient seen and examined; case discussed with podiatry Dr. Anaya. No acute event overnight. Currently stable. Objective Vitals Vital Signs Date Time Temp Pulse Resp B/P Pulse Ox O2 Delivery O2 Flow Rate FiO2 06/01/16 09:00 Nasal Cannula 2.00 06/01/16 08:00 98.1 73 20 147/70 93 06/01/16 04:00 98.0 59 20 151/67 99 06/01/16 00:00 98.4 64 20 105/53 98 05/31/16 20:00 97.9 70 22 172/71 100 05/31/16 19:45 Nasal Cannula 2.00 05/31/16 17:48 99 Nasal Cannula 2.00 05/31/16 16:29 18 05/31/16 16:00 98.1 67 20 133/60 100 05/31/16 14:16 Nasal Cannula 2.00 05/31/16 12:00 98.2 67 20 162/72 99 05/31/16 11:10 99 Nasal Cannula 2.00 I/O 05/31/16 05/31/16 05/31/16 06/01/16 06/01/16 06/01/16 07:00 15:00 23:00 07:00 15:00 23:00 Intake Total 250 ml 482 ml Output Total 1300 ml 800 ml 1000 ml 500 ml Balance -1050 ml -318 ml -1000 ml -500 ml Intake Oral 250 ml 480 ml IV Total 2 ml Output Urine Total 1300 ml 800 ml 1000 ml 500 ml # Bowel Movements 0 0 1 1 Result Diagram: 05/29/16 0801 05/31/16 0606 Objective Remarks GENERAL: No acute distress SKIN: Warm and dry. HEAD: Normocephalic. EYES: No scleral icterus. No injection or drainage. NECK: Supple, trachea midline. No JVD or lymphadenopathy. CARDIOVASCULAR: Regular rate and rhythm without murmurs, gallops, or rubs. RESPIRATORY: Breath sounds equal bilaterally. No accessory muscle use. GASTROINTESTINAL: Abdomen soft, non-tender, nondistended. MUSCULOSKELETAL: No cyanosis, or edema. Dressing to bilateral foot BACK: Nontender without obvious deformity. No CVA tenderness. A/P Problem List: (1) Severe sepsis ICD Code: A41.9 Status: Acute (2) Acute metabolic encephalopathy ICD Code: G93.41 Status: Acute (3) Hyperkalemia ICD Code: E87.5 Status: Acute (4) Dehydration ICD Code: E86.0 Status: Acute (5) Acute renal failure ICD Code: N17.9 Status: Acute (6) UTI (urinary tract infection) ICD Code: N39.0 Status: Acute (7) Supratherapeutic INR ICD Code: R79.1 Status: Acute (8) Leukocytosis ICD Code: D72.829 Status: Acute (9) CAD (coronary artery disease) ICD Code: I25.10 Status: Acute (10) PAD (peripheral artery disease) ICD Code: I73.9 Status: Acute (11) Afib ICD Code: I48.91 Status: Chronic (12) CHF (congestive heart failure) ICD Code: I50.9 Status: Acute (13) Diabetic foot ulcers ICD Code: E11.621 Status: Acute Assessment and Plan 65-year-old male with 1. Resolved. Severe sepsis due to UTI, on vanco. Yeast in Cultures, on fluconazole, 2. Coagulopathy, 2.4 INR on Coumadin for afib 3. Type 2 diabetes, Sliding-scale insulin for diabetes, controlled 4. Anemia, Hg 8.8 s/p transfusion, (05/24, Podiatry Ulcers excisionally debrided of necrotic and fibrotic tissue down to tendon R leg with subsequent 2hrs of bleeding) 5. MERRY, improved with IVF and relief of retention. follow, avoid nephrotoxin resolved; Keep cabello in; outpatient urology evaluation. 6. Hypotension, resolved 7. PVD/Foot ulcers, cultures +MRSA, chronic PAD. Wound care daily. Appreciate input from podiatry. Will consult vascular surgery for further evaluation. Obtain CT with runoff Problem Qualifiers (1) Acute renal failure: Qualified Code: N17.9 - Acute renal failure, unspecified acute renal failure type (2) UTI (urinary tract infection): (3) CAD (coronary artery disease): (4) Diabetic foot ulcers: Subhash To MD Jun 01, 2016 09:47
[2016-06-01] MEDS ORDERED: PHARMACY ORDERED LAB XX ONE (11:45)
[2016-06-01 12:00] VITALS: BP 147/70; PULSE 73; RESP 18; TEMP 98.1; O2SAT 99
[2016-06-01] MEDS ORDERED: IOHEXOL 350 MG/ML 10 ML VIAL (for RAD DIAG) IV ONE (13:18)
[2016-06-01] MEDS: VANCOMYCIN INJ 1,500 MG in SODIUM CHLORID 0.9% 500 ML INJ 500 ML IV SCH (13:28)
--- NOTE | 2016-06-01 13:41 | RADRPT ---
EXAM DATE/TIME: 06/01/2016 12:13 [facility] COMPARISON: CT BRAIN W/O CONTRAST, May 24, 2016, 12:55. INDICATIONS : Peripheral vascular disease. IV CONTRAST: 100 cc Omnipaque 350 (iohexol) IV RADIATION DOSE: 8.15 CTDIvol (mGy) MEDICAL HISTORY : Cardiovascular disease. Chronic obstructive pulmonary disease. Diabetes SURGICAL HISTORY : Cholecystectomy. Left pinky toe amputation ENCOUNTER: Initial ACUITY: 1 day PAIN SCALE: 6/10 LOCATION: Bilateral legs TECHNIQUE: Volumetric scanning was performed using a multi-row detector CT scanner. The data was post processed with a variety of visualization algorithms including full volume maximum intensity projection, multi -planar sliding thin slab reformation, curved planar reformation, and surface rendering techniques. Using automated exposure control and adjustment of the mA and/or kV according to patient size, radiat ion dose was kept as low as reasonably achievable to obtain optimal diagnostic quality images. FINDINGS: ABDOMINAL AORTA: The examination demonstrates atherosclerotic plaquing with areas of mild to moderate stenosis at the origins of the celiac and SMA. There are single renal arteries bilaterally. The renal arteries are wi gato patent. The infrarenal aorta demonstrates diffuse atherosclerotic plaquing but is adequate in ca liber throughout. PELVIS: The right common iliac, internal iliac and extrailiac circulation demonstrates moderate diffuse ather osclerotic plaquing but is adequate in caliber throughout its course. RIGHT LEG: The common femorals disease but adequate in caliber. The profunda femoral is patent. There is diffuse disease throughout the course of the superficial femoral with multiple areas of moderate stenosis. T here are scattered areas of high grade stenosis involving the proximal and mid segments of the superf icial femoral. The popliteal is heavily diseased with an area of moderate stenosis in its mid aspect. Distally, there is advanced small vessel disease with occlusion of the posterior tibial peroneal. Th ere is single vessel runoff into the foot via a diseased anterior tibial. LEFT LEG: The common femorals disease but patent. There is diffuse atherosclerotic plaquing throughout the cour se of the superficial femoral there are scattered areas of moderate high grade stenosis throughout it s course. The popliteal is heavily diseased with high-grade stenosis in its mid segment. Distally, th ere is advanced small vessel disease with occlusion of the tibioperoneal trunk and origin of the post erior tibial. The peroneal is occluded throughout its course. There is segmental occlusion of the ant erior aspect of the anterior tibial is well. Distally, the anterior tibial and posterior tibial recon stitute. CT source data: There are small bilateral pleural effusions. There is diffuse interstitial edema throughout the pulmo nary parenchyma. CONCLUSION: 1. Heavily diseased but adequate in flow down to the level of the groin bilaterally. 2. 3. Right le. Diffusely diseased superficial femoral artery with multiple areas of moderate and scattered areas of high grade stenosis. The popliteal is diseased but adequate in caliber. Distally, there is single vessel runoff into the foot via the anterior tibial. 5. 6. Left le. Heavily diseased superficial femoral with scattered areas of moderate and high grade stenosis. The popliteal is heavily diseased as well. Distally, there is occlusion of the origin of all 3 trifurcat ion vessels. Eventually, there is reconstitution of the anterior tibial and posterior tibial. Aric Cazares MD on June 01, 2016 at 13:25 Board Certified Radiologist. This report was verified electronically.
[2016-06-01 16:00] VITALS: BP 153/73; PULSE 72; RESP 18; TEMP 98.3; O2SAT 100
--- NOTE | 2016-06-01 16:11 | PD.CONS ---
History of Present Illness Service [facility] Vascular Surgery Consult Requested By Reason for Consult B LE wounds Primary Care Physician No Primary Care Physician Diagnoses: History of Present Illness 65 yo diabetic morbidly obese male who was scheduled to see Dr. Phan in clinic for evaluation of LE wounds. Upon presentation the patient was found to have altered mental status and was sent to the ER. He was admitted and since then per the patient, he feels better. He has atherosclerotic risk factorrs of HTN, DM, tobacco abuse, mild CHF. He has a history of L LE toe amputations - he says a few months ago - which have healed. He had these because of what sounds like diabetic toe infections. Of note, the patient has not walked in over a year and a half per his estimation. When he was admitted, he appeared to be septic from a UTI, which has been appropriately treated. Review of Systems Constitutional: COMPLAINS OF: Fatigue, Chills, Dizziness Respiratory: COMPLAINS OF: Snoring, Shortness of breath Cardiovascular: COMPLAINS OF: Dyspnea on Exertion, Lower Extremity Edema Musculoskeletal: COMPLAINS OF: Back pain Neurologic: COMPLAINS OF: Poor Balance Past Family Social History Allergies: Coded Allergies: *MDRO Multi-Drug Resistant Organism (Verified Adverse Reaction, Unknown, MRSA, 05/29/16) MRSA (toe wound) - 01/27/16; (foot) - 05/24/16 MRSA PCR Screen POSITIVE - 05/26/16 Past Medical History Chronic atrial fibrillation CHF but EF 50-55% in Mar 2016 COPD Hypertension History of UTI Peripheral vascular disease Diabetic neuropathy Chronic pain Bilateral diabetic foot ulcers History of osteomyelitis left lower extremity Social History former smoker Physical Exam Vital Signs Vital Signs Date Time Temp Pulse Resp B/P Pulse Ox O2 Delivery O2 Flow Rate FiO2 06/01/16 13:40 Nasal Cannula 2.00 06/01/16 09:00 Nasal Cannula 2.00 06/01/16 08:00 98.1 73 20 147/70 93 06/01/16 04:00 98.0 59 20 151/67 99 06/01/16 00:00 98.4 64 20 105/53 98 05/31/16 20:00 97.9 70 22 172/71 100 05/31/16 19:45 Nasal Cannula 2.00 05/31/16 17:48 99 Nasal Cannula 2.00 05/31/16 16:29 18 05/31/16 16:00 98.1 67 20 133/60 100 Physical Exam GENERAL: no distress but in disarray, weak and disabled. HEAD: Atraumatic. Normocephalic. EYES: anicteric sclera NECK: No JVD CARDIOVASCULAR: Irregular rate RESPIRATORY: nonlabored VASCULAR: Palpable femoral pulses but nothing distally EXTREMITIES: RIGHT leg with wound on Achilles tendon with minimal necrosis LEFT leg with lateral foot wound and toe amputations, necrotic tissue Laboratory Laboratory Tests Test 06/01/16 06/01/16 06:10 13:35 Prothrombin Time 25.5 Prothromb Time International 2.2 Ratio Vancomycin Level Trough 22.1 Date/Time Procedure Status Source Growth 05/28/16 00:30 Urine Culture - Final Complete Urine Catheterized Urine Natalie Glabrata Result Diagram: 05/29/16 0801 05/31/16 0606 Assessment and Plan Assessment and Plan 1. PAD with tissue loss. He needs wound care - debridement (excisional vs enzymatic) and avoidance of pressure, especially on the R heel. ABIs - I will order these He is nonabulatory and I would not offer aggressive attempts at limb salvage given overall health. 2. Will follow closely. Raúl Vera MD Jun 01, 2016 16:11
[2016-06-01] MEDS: WARFARIN SOD 4 MG TAB PO SCH (17:11)
[2016-06-01 20:00] VITALS: BP 108/59; PULSE 85; RESP 17; TEMP 98.2; O2SAT 100
[2016-06-02] VITALS (8 sets, daily range): BP systolic 104–133; BP diastolic 54–72; PULSE 60–77; RESP 17–20; TEMP 98.2–98.8; O2SAT 96–100
[2016-06-02] MEDS: INSULIN ASPART SUPPLEMENTAL SCALE SQ SCH ×3 (07:00→18:00)
[2016-06-02 07:01] LABS: AUTOMATED NEUTROPHIL # 4.5 TH/MM3 (1.8-7.7); BASOPHIL % 0.7 % (0.0-2.0); EOSINOPHIL # 0.3 TH/MM3 (0-0.4); EOSINOPHIL % 4.2 % (0.0-4.0); HEMATOCRIT 22.4 % (39.0-51.0); HEMO FLAGS DIFF FINAL; LYMPH % 15.2 % (9.0-44.0); MEAN CELL VOLUME 89.3 FL (80.0-100.0); MEAN CORPUSCULAR HEMOGLOBIN 31.2 PG (27.0-34.0); MONO % 8.9 % (0.0-8.0); PLATELET COUNT 127 TH/MM3 (150-450); RED BLOOD COUNT 2.51 MIL/MM3 (4.50-5.90); RED CELL DISTRIBUTION WIDTH 16.6 % (11.6-17.2); WHITE BLOOD COUNT 6.3 TH/MM3 (4.0-11.0)
[2016-06-02 07:15] LABS: INTERNATIONAL NORMALIZED RATIO 2.6 RATIO; PROTHROMBIN TIME - PATIENT 30.3 SEC (9.8-11.6)
[2016-06-02 07:28] LABS: BICARBONATE 27.3 MEQ/L (21.0-32.0); POTASSIUM 3.3 MEQ/L (3.5-5.1)
[2016-06-02] MEDS: TAMSULOSIN HCL 0.4 MG CAP PO SCH (08:06)
[2016-06-02] MEDS: COLLAGENASE OINT 30 GM TUBE TOP SCH (08:06)
[2016-06-02] MEDS: FLUCONAZOLE 200 MG TAB PO SCH (08:06)
[2016-06-02] MEDS: PANTOPRAZOLE SOD 40 MG DELAYED RELEASE TAB PO SCH (08:06)
[2016-06-02] MEDS: SODIUM CHLORIDE 0.9% FLUSH 5 ML FLUSH IV FLUSH SCH ×2 (08:07→21:08)
--- NOTE | 2016-06-02 09:05 | HHI.PR ---
Subjective Remarks Follow-up sepsis 05/30/16-patient seen and examined, no acute event overnight and currently afebrile. Denies any chest pain or shortness of breath. 05/31/16-patient seen and examined. Afebrile. No complain and stable. 06/01/16-patient seen and examined; case discussed with podiatry Dr. Anaya. No acute event overnight. Currently stable. 06/02/16-patient seen and examined; stable and no complain. He was seen by vascular surgery yesterday and no plan for any surgery. Objective Vitals Vital Signs Date Time Temp Pulse Resp B/P Pulse Ox O2 Delivery O2 Flow Rate FiO2 06/02/16 08:00 98.2 66 20 114/60 100 06/02/16 04:00 98.8 66 17 111/55 97 06/02/16 00:17 98.4 70 18 104/54 96 06/01/16 20:00 98.2 85 17 108/59 100 06/01/16 16:00 98.3 72 18 153/73 100 06/01/16 13:40 Nasal Cannula 2.00 06/01/16 12:00 98.1 73 18 147/70 99 I/O 06/01/16 06/01/16 06/01/16 06/02/16 06/02/16 06/02/16 06:59 14:59 22:59 06:59 14:59 22:59 Intake Total 988 ml 480 ml 100 ml Output Total 500 ml 900 ml 300 ml 700 ml Balance -500 ml 88 ml 180 ml -600 ml Intake Oral 480 ml 480 ml 100 ml IV Total 508 ml Output Urine Total 500 ml 900 ml 300 ml 700 ml # Bowel Movements 1 1 0 1 Result Diagram: 06/02/16 0600 06/02/16 0600 Imaging Last Impressions Aorta w/Runoff CTA 06/01/16 0000 Signed Impressions: Service Date/Time: May 12:13 - CONCLUSION: 1. Heavily diseased but adequate in flow down to the level of the groin bilaterally. 2. 3. Right le. Diffusely diseased superficial femoral artery with multiple areas of moderate and scattered areas of high grade stenosis. The popliteal is diseased but adequate in caliber. Distally, there is single vessel runoff into the foot via the anterior tibial. 5. 6. Left le. Heavily diseased superficial femoral with scattered areas of moderate and high grade stenosis. The popliteal is heavily diseased as well. Distally, there is occlusion of the origin of all 3 trifurcation vessels. Eventually, there is reconstitution of the anterior tibial and posterior tibial. Aric Cazares MD Chest X-Ray 05/25/16 0000 Signed Impressions: Service Date/Time: May 05:03 - CONCLUSION: Stable areas of mild atelectasis or scarring at the bilateral lungs. Bret Schilling MD Head CT 05/24/16 1217 Signed Impressions: Service Date/Time: Tuesday, May 24, 2016 12:55 - CONCLUSION: 1. No acute intracranial abnormality. 2. Atrophy. 3. Chronic small vessel ischemic change. Juvenal Jarquin Jr., MD Objective Remarks GENERAL: No acute distress SKIN: Warm and dry. HEAD: Normocephalic. EYES: No scleral icterus. No injection or drainage. NECK: Supple, trachea midline. No JVD or lymphadenopathy. CARDIOVASCULAR: Regular rate and rhythm without murmurs, gallops, or rubs. RESPIRATORY: Breath sounds equal bilaterally. No accessory muscle use. GASTROINTESTINAL: Abdomen soft, non-tender, nondistended. MUSCULOSKELETAL: No cyanosis, or edema. Dressing to bilateral foot BACK: Nontender without obvious deformity. No CVA tenderness. A/P Problem List: (1) Severe sepsis ICD Code: A41.9 Status: Acute (2) Acute metabolic encephalopathy ICD Code: G93.41 Status: Acute (3) Hyperkalemia ICD Code: E87.5 Status: Acute (4) Dehydration ICD Code: E86.0 Status: Acute (5) Acute renal failure ICD Code: N17.9 Status: Acute (6) UTI (urinary tract infection) ICD Code: N39.0 Status: Acute (7) Supratherapeutic INR ICD Code: R79.1 Status: Acute (8) Leukocytosis ICD Code: D72.829 Status: Acute (9) CAD (coronary artery disease) ICD Code: I25.10 Status: Acute (10) PAD (peripheral artery disease) ICD Code: I73.9 Status: Acute (11) Afib ICD Code: I48.91 Status: Chronic (12) CHF (congestive heart failure) ICD Code: I50.9 Status: Acute (13) Diabetic foot ulcers ICD Code: E11.621 Status: Acute Assessment and Plan 65-year-old male with 1. Resolved. Severe sepsis due to UTI, on vanco. Yeast in Cultures, on fluconazole, 2. Coagulopathy, 2.4 INR on Coumadin for afib 3. Type 2 diabetes, Sliding-scale insulin for diabetes, controlled 4. Anemia, Hg 8.8 s/p transfusion, (05/24, Podiatry Ulcers excisionally debrided of necrotic and fibrotic tissue down to tendon R leg with subsequent 2hrs of bleeding) 5. MERRY, improved with IVF and relief of retention. follow, avoid nephrotoxin resolved; Keep cabello in; outpatient urology evaluation. 6. Hypotension, resolved 7. PVD/Foot ulcers, cultures +MRSA, chronic PAD. Wound care daily. Appreciate input from podiatry. Appreciate input from vascular surgery however was stated patient is not candidate for any operation at this point but may benefit from debridement. CTA with runoff noted and review. Pending JORDON Problem Qualifiers (1) Acute renal failure: Qualified Code: N17.9 - Acute renal failure, unspecified acute renal failure type (2) UTI (urinary tract infection): (3) CAD (coronary artery disease): (4) Diabetic foot ulcers: Subhash To MD Jun 02, 2016 09:04
[2016-06-02] MEDS: VANCOMYCIN INJ 1,500 MG in SODIUM CHLORID 0.9% 500 ML INJ 500 ML IV SCH (13:00)
--- NOTE | 2016-06-02 14:06 | RADRPT ---
EXAM DATE/TIME: 06/01/2016 00:00 [facility] COMPARISON: No previous studies available for comparison. INDICATIONS : Bilateral lower extremity wounds TECHNIQUE: Five-station segmental examination of the lower extremities was performed. Pulsed-cuff waveform tracings and pressures were recorded. Ankle-brachial indices and toe-brachial indices were calculated. PRESSURES (mmHg): Brachial (arm): Right IV SITE Left 144 Lower Thigh: Right 192 Left 198 Calf: Right CNO >237 Left 156 Ankle: Right CNO >237 Left CNO >237 Toe: Right 0 Left 49 JORDON: Right CNO Left CNO TBI: Right 0.00 Left 0.34 PULSED CUFF WAVEFORMS: Delayed upstroke and reduced peak amplitude bilaterally at the ankles. CONCLUSION: Unable to compress and occlude the peripheral vessels bilaterally suggesting calcified atheroscleroti c plaque. This significantly limits the utility of arterial Doppler as a screening tool. Unable to ob tain a toe pressure on the right. Significantly reduced left toe pressure. The findings suggest signi ficant steno-occlusive disease. Consider CTA with runoff to further evaluate. Juvenal Jarquin Jr., MD on June 02, 2016 at 14:01 Board Certified Radiologist. This report was verified electronically.
[2016-06-02] MEDS: WARFARIN SOD 4 MG TAB PO SCH (16:19)
[2016-06-02] MEDS: ACETAMINOPHEN/HYDROcodone 325 MG/5 MG TAB PO PRN (21:08)
[2016-06-03] VITALS (9 sets, daily range): BP systolic 108–162; BP diastolic 58–73; PULSE 60–77; RESP 18–22; TEMP 98.1–99.1; O2SAT 97–100
[2016-06-03] MEDS: INSULIN ASPART SUPPLEMENTAL SCALE SQ SCH ×5 (01:06→22:56)
[2016-06-03 07:07] LABS: INTERNATIONAL NORMALIZED RATIO 3.1 RATIO
--- NOTE | 2016-06-03 07:53 | HHI.PR ---
Subjective Remarks Follow-up sepsis 05/30/16-patient seen and examined, no acute event overnight and currently afebrile. Denies any chest pain or shortness of breath. 05/31/16-patient seen and examined. Afebrile. No complain and stable. 06/01/16-patient seen and examined; case discussed with podiatry Dr. Anaya. No acute event overnight. Currently stable. 06/02/16-patient seen and examined; stable and no complain. He was seen by vascular surgery yesterday and no plan for any surgery. 06/03/16-she seen and examined; currently afebrile and no acute event overnight. Objective Vitals Vital Signs Date Time Temp Pulse Resp B/P Pulse Ox O2 Delivery O2 Flow Rate FiO2 06/03/16 04:00 98.1 64 18 128/58 97 06/03/16 00:00 98.5 72 18 155/65 97 06/02/16 22:00 98.4 77 17 111/56 100 06/02/16 20:00 Nasal Cannula 2.50 06/02/16 18:03 100 Nasal Cannula 2.00 06/02/16 16:00 98.6 67 20 126/62 100 06/02/16 12:00 98.5 68 20 133/62 100 06/02/16 10:27 97 Nasal Cannula 2.00 06/02/16 08:00 98.2 66 20 114/60 100 06/02/16 08:00 Room Air I/O 06/02/16 06/02/16 06/02/16 06/03/16 06/03/16 06/03/16 06:59 14:59 22:59 06:59 14:59 22:59 Intake Total 100 ml 720 ml 240 ml 240 ml Output Total 700 ml 600 ml 250 ml Balance -600 ml 120 ml 240 ml -10 ml Intake Oral 100 ml 720 ml 240 ml 240 ml Output Urine Total 700 ml 600 ml 250 ml # Voids 0 # Bowel Movements 1 1 0 0 Result Diagram: 06/02/16 0600 06/02/16 0600 Objective Remarks GENERAL: No acute distress SKIN: Warm and dry. HEAD: Normocephalic. EYES: No scleral icterus. No injection or drainage. NECK: Supple, trachea midline. No JVD or lymphadenopathy. CARDIOVASCULAR: Regular rate and rhythm without murmurs, gallops, or rubs. RESPIRATORY: Breath sounds equal bilaterally. No accessory muscle use. GASTROINTESTINAL: Abdomen soft, non-tender, nondistended. MUSCULOSKELETAL: No cyanosis, or edema. Dressing to bilateral foot BACK: Nontender without obvious deformity. No CVA tenderness. A/P Problem List: (1) Severe sepsis ICD Code: A41.9 Status: Acute (2) Acute metabolic encephalopathy ICD Code: G93.41 Status: Acute (3) Hyperkalemia ICD Code: E87.5 Status: Acute (4) Dehydration ICD Code: E86.0 Status: Acute (5) Acute renal failure ICD Code: N17.9 Status: Acute (6) UTI (urinary tract infection) ICD Code: N39.0 Status: Acute (7) Supratherapeutic INR ICD Code: R79.1 Status: Acute (8) Leukocytosis ICD Code: D72.829 Status: Acute (9) CAD (coronary artery disease) ICD Code: I25.10 Status: Acute (10) PAD (peripheral artery disease) ICD Code: I73.9 Status: Acute (11) Afib ICD Code: I48.91 Status: Chronic (12) CHF (congestive heart failure) ICD Code: I50.9 Status: Acute (13) Diabetic foot ulcers ICD Code: E11.621 Status: Acute Assessment and Plan 65-year-old male with 1. Resolved. Severe sepsis due to UTI, on vanco. Yeast in Cultures, on fluconazole, 2. Coagulopathy, 2.4 INR on Coumadin for afib 3. Type 2 diabetes, Sliding-scale insulin for diabetes, controlled 4. Anemia, Hg 8.8 s/p transfusion, (05/24, Podiatry Ulcers excisionally debrided of necrotic and fibrotic tissue down to tendon R leg with subsequent 2hrs of bleeding) 5. MERRY, improved with IVF and relief of retention. follow, avoid nephrotoxin resolved; Keep cabello in; outpatient urology evaluation. 6. Hypotension, resolved 7. PVD/Foot ulcers, cultures +MRSA, chronic PAD. Wound care daily. Appreciate input from podiatry. Appreciate input from vascular surgery however was stated patient is not candidate for any operation at this point but may benefit from debridement. CTA with runoff noted and review. JORDON with finding of stenoclusive disease as confirmed by CTA runoff Problem Qualifiers (1) Acute renal failure: Qualified Code: N17.9 - Acute renal failure, unspecified acute renal failure type (2) UTI (urinary tract infection): (3) CAD (coronary artery disease): (4) Diabetic foot ulcers: Subhash To MD Jun 03, 2016 07:53
[2016-06-03] MEDS: FLUCONAZOLE 200 MG TAB PO SCH (09:41)
[2016-06-03] MEDS: TAMSULOSIN HCL 0.4 MG CAP PO SCH (09:42)
[2016-06-03] MEDS: PANTOPRAZOLE SOD 40 MG DELAYED RELEASE TAB PO SCH (09:42)
[2016-06-03] MEDS: SODIUM CHLORIDE 0.9% FLUSH 5 ML FLUSH IV FLUSH SCH ×2 (09:42→21:50)
[2016-06-03] MEDS: COLLAGENASE OINT 30 GM TUBE TOP SCH (09:59)
[2016-06-03] MEDS: VANCOMYCIN INJ 1,500 MG in SODIUM CHLORID 0.9% 500 ML INJ 500 ML IV SCH (14:54)
[2016-06-04 04:17] VITALS: BP 130/61; PULSE 71; RESP 20; TEMP 98.2; O2SAT 100
[2016-06-04] MEDS: INSULIN ASPART SUPPLEMENTAL SCALE SQ SCH ×4 (05:11→22:39)
[2016-06-04 06:27] LABS: PROTHROMBIN TIME - PATIENT 34.7 SEC (9.8-11.6)
[2016-06-04 08:00] VITALS: BP 122/70; PULSE 63; RESP 22; TEMP 98.5; O2SAT 100
[2016-06-04] MEDS: COLLAGENASE OINT 30 GM TUBE TOP SCH (08:34)
[2016-06-04] MEDS: FLUCONAZOLE 200 MG TAB PO SCH (08:34)
[2016-06-04] MEDS: PANTOPRAZOLE SOD 40 MG DELAYED RELEASE TAB PO SCH (08:34)
[2016-06-04] MEDS: TAMSULOSIN HCL 0.4 MG CAP PO SCH (08:34)
[2016-06-04] MEDS: SODIUM CHLORIDE 0.9% FLUSH 5 ML FLUSH IV FLUSH SCH ×2 (09:00→22:37)
--- NOTE | 2016-06-04 09:01 | HHI.PR ---
Subjective Remarks Follow-up sepsis 05/30/16-patient seen and examined, no acute event overnight and currently afebrile. Denies any chest pain or shortness of breath. 05/31/16-patient seen and examined. Afebrile. No complain and stable. 06/01/16-patient seen and examined; case discussed with podiatry Dr. Anaya. No acute event overnight. Currently stable. 06/02/16-patient seen and examined; stable and no complain. He was seen by vascular surgery yesterday and no plan for any surgery. 06/03/16-she seen and examined; currently afebrile and no acute event overnight. 06/04/16-patient seen and examined; no complain and stable. No acute event overnight. Objective Vitals Vital Signs Date Time Temp Pulse Resp B/P Pulse Ox O2 Delivery O2 Flow Rate FiO2 06/04/16 04:17 98.2 71 20 130/61 100 06/03/16 23:47 98.5 66 22 130/61 97 06/03/16 22:43 98 Nasal Cannula 2.00 06/03/16 21:30 Nasal Cannula 2.00 06/03/16 20:43 99.1 70 22 151/72 99 06/03/16 16:00 98.1 77 22 162/73 99 06/03/16 12:00 98.2 60 22 108/59 100 06/03/16 09:43 98 Nasal Cannula 2.00 I/O 06/03/16 06/03/16 06/03/16 06/04/16 06/04/16 06/04/16 06:59 14:59 22:59 06:59 14:59 22:59 Intake Total 240 ml 480 ml 480 ml 240 ml Output Total 250 ml 460 ml 1000 ml 650 ml Balance -10 ml 20 ml -520 ml -410 ml Intake Oral 240 ml 480 ml 480 ml 240 ml Output Urine Total 250 ml 460 ml 1000 ml 650 ml # Bowel Movements 0 0 1 Result Diagram: 06/02/16 0600 06/04/16 0539 Objective Remarks GENERAL: No acute distress SKIN: Warm and dry. HEAD: Normocephalic. EYES: No scleral icterus. No injection or drainage. NECK: Supple, trachea midline. No JVD or lymphadenopathy. CARDIOVASCULAR: Regular rate and rhythm without murmurs, gallops, or rubs. RESPIRATORY: Breath sounds equal bilaterally. No accessory muscle use. GASTROINTESTINAL: Abdomen soft, non-tender, nondistended. MUSCULOSKELETAL: No cyanosis, or edema. Dressing to bilateral foot BACK: Nontender without obvious deformity. No CVA tenderness. A/P Problem List: (1) Severe sepsis ICD Code: A41.9 Status: Acute (2) Acute metabolic encephalopathy ICD Code: G93.41 Status: Resolved (3) Hyperkalemia ICD Code: E87.5 Status: Resolved (4) Dehydration ICD Code: E86.0 Status: Resolved (5) Acute renal failure ICD Code: N17.9 Status: Resolved (6) UTI (urinary tract infection) ICD Code: N39.0 Status: Acute (7) Supratherapeutic INR ICD Code: R79.1 Status: Acute (8) Leukocytosis ICD Code: D72.829 Status: Acute (9) CAD (coronary artery disease) ICD Code: I25.10 Status: Chronic (10) PAD (peripheral artery disease) ICD Code: I73.9 Status: Chronic (11) Afib ICD Code: I48.91 Status: Chronic (12) CHF (congestive heart failure) ICD Code: I50.9 Status: Chronic (13) Diabetic foot ulcers ICD Code: E11.621 Status: Acute Assessment and Plan 65-year-old male with 1. Resolved. Severe sepsis due to UTI, on vanco. Yeast in Cultures, on fluconazole, 2. Coagulopathy, on Coumadin for afib 3. Type 2 diabetes, Sliding-scale insulin for diabetes, controlled 4. Anemia, Hg 8.8 s/p transfusion, (05/24, Podiatry Ulcers excisionally debrided of necrotic and fibrotic tissue down to tendon R leg with subsequent 2hrs of bleeding) 5. MERRY, improved with IVF. avoid nephrotoxin resolved; Keep cabello in; outpatient urology evaluation. 6. Hypotension, resolved 7. PVD/Foot ulcers, cultures +MRSA, chronic PAD. Wound care daily. Appreciate input from podiatry. Appreciate input from vascular surgery however was stated patient is not candidate for any operation at this point but may benefit from debridement. CTA with runoff noted and review. JORDNO with finding of stenooclusive disease as confirmed by CTA runoff. To current treatment and care Problem Qualifiers (1) Acute renal failure: Qualified Code: N17.9 - Acute renal failure, unspecified acute renal failure type (2) UTI (urinary tract infection): (3) CAD (coronary artery disease): (4) Diabetic foot ulcers: Subhash To MD Jun 04, 2016 09:01
[2016-06-04] MEDS: ACETAMINOPHEN/HYDROcodone 325 MG/5 MG TAB PO PRN (11:31)
[2016-06-04 12:00] VITALS: BP 129/60; PULSE 66; RESP 22; TEMP 97.8; O2SAT 100
[2016-06-04] MEDS ORDERED: PHARMACY ORDERED LAB XX ONE (13:45)
[2016-06-04] MEDS: VANCOMYCIN INJ 1,500 MG in SODIUM CHLORID 0.9% 500 ML INJ 500 ML IV SCH (14:34)
[2016-06-04 16:00] VITALS: BP 133/63; PULSE 65; RESP 22; TEMP 96.2; O2SAT 99
[2016-06-04 20:00] VITALS: BP 140/64; PULSE 74; RESP 19; TEMP 98.9; O2SAT 100
[2016-06-05] VITALS: BP 116/62; PULSE 75; RESP 18; TEMP 98.6; O2SAT 98
[2016-06-05 04:00] VITALS: BP 127/60; PULSE 72; RESP 17; TEMP 98.4; O2SAT 97
[2016-06-05] MEDS: INSULIN ASPART SUPPLEMENTAL SCALE SQ SCH ×4 (05:30→21:44)
[2016-06-05 08:00] VITALS: BP 132/68; PULSE 70; RESP 16; TEMP 98.1; O2SAT 100
[2016-06-05] MEDS: FLUCONAZOLE 200 MG TAB PO SCH (09:13)
[2016-06-05] MEDS: PANTOPRAZOLE SOD 40 MG DELAYED RELEASE TAB PO SCH (09:13)
[2016-06-05] MEDS: TAMSULOSIN HCL 0.4 MG CAP PO SCH (09:13)
[2016-06-05] MEDS: SODIUM CHLORIDE 0.9% FLUSH 5 ML FLUSH IV FLUSH SCH ×2 (09:14→21:44)
[2016-06-05 10:18] LABS: INTERNATIONAL NORMALIZED RATIO 2.1 RATIO; PROTHROMBIN TIME - PATIENT 24.1 SEC (9.8-11.6)
--- NOTE | 2016-06-05 10:48 | HHI.PR ---
Subjective Remarks Follow-up sepsis 05/30/16-patient seen and examined, no acute event overnight and currently afebrile. Denies any chest pain or shortness of breath. 05/31/16-patient seen and examined. Afebrile. No complain and stable. 06/01/16-patient seen and examined; case discussed with podiatry Dr. Anaya. No acute event overnight. Currently stable. 06/02/16-patient seen and examined; stable and no complain. He was seen by vascular surgery yesterday and no plan for any surgery. 06/03/16-she seen and examined; currently afebrile and no acute event overnight. 06/04/16-patient seen and examined; no complain and stable. No acute event overnight. 06/05/16-patient seen and examined; afebrile and stable. No change. Objective Vitals Vital Signs Date Time Temp Pulse Resp B/P Pulse Ox O2 Delivery O2 Flow Rate FiO2 06/05/16 08:00 98.1 70 16 132/68 100 06/05/16 04:00 98.4 72 17 127/60 97 06/05/16 00:00 98.6 75 18 116/62 98 06/04/16 22:30 Nasal Cannula 2.00 06/04/16 20:00 98.9 74 19 140/64 100 06/04/16 16:00 96.2 65 22 133/63 99 06/04/16 12:00 97.8 66 22 129/60 100 06/04/16 11:00 Nasal Cannula 2.00 I/O 06/04/16 06/04/16 06/04/16 06/05/16 06/05/16 06/05/16 07:00 15:00 23:00 07:00 15:00 23:00 Intake Total 240 ml 480 ml 240 ml 180 ml Output Total 650 ml 1000 ml 300 ml 600 ml Balance -410 ml -520 ml -60 ml -420 ml Intake Oral 240 ml 480 ml 240 ml 180 ml Output Urine Total 650 ml 1000 ml 300 ml 600 ml Stool Total 0 ml # Bowel Movements 1 0 Result Diagram: 06/02/16 0600 06/05/16 0923 Objective Remarks GENERAL: No acute distress SKIN: Warm and dry. HEAD: Normocephalic. EYES: No scleral icterus. No injection or drainage. NECK: Supple, trachea midline. No JVD or lymphadenopathy. CARDIOVASCULAR: Regular rate and rhythm without murmurs, gallops, or rubs. RESPIRATORY: Breath sounds equal bilaterally. No accessory muscle use. GASTROINTESTINAL: Abdomen soft, non-tender, nondistended. MUSCULOSKELETAL: No cyanosis, or edema. Dressing to bilateral foot BACK: Nontender without obvious deformity. No CVA tenderness. A/P Problem List: (1) Severe sepsis ICD Code: A41.9 Status: Acute (2) Acute metabolic encephalopathy ICD Code: G93.41 Status: Resolved (3) Hyperkalemia ICD Code: E87.5 Status: Resolved (4) Dehydration ICD Code: E86.0 Status: Resolved (5) Acute renal failure ICD Code: N17.9 Status: Resolved (6) UTI (urinary tract infection) ICD Code: N39.0 Status: Acute (7) Supratherapeutic INR ICD Code: R79.1 Status: Acute (8) Leukocytosis ICD Code: D72.829 Status: Acute (9) CAD (coronary artery disease) ICD Code: I25.10 Status: Chronic (10) PAD (peripheral artery disease) ICD Code: I73.9 Status: Chronic (11) Afib ICD Code: I48.91 Status: Chronic (12) CHF (congestive heart failure) ICD Code: I50.9 Status: Chronic (13) Diabetic foot ulcers ICD Code: E11.621 Status: Acute Assessment and Plan 65-year-old male with 1. Resolved. Severe sepsis due to UTI, on vanco. Yeast in Cultures, on fluconazole, 2. Coagulopathy, on Coumadin for afib 3. Type 2 diabetes, Sliding-scale insulin for diabetes, controlled 4. Anemia, Hg 8.8 s/p transfusion, (05/24, Podiatry Ulcers excisionally debrided of necrotic and fibrotic tissue down to tendon R leg with subsequent 2hrs of bleeding) 5. MERRY, improved with IVF. avoid nephrotoxin resolved; Keep cabello in; outpatient urology evaluation. 6. Hypotension, resolved 7. PVD/Foot ulcers, cultures +MRSA, chronic PAD. Wound care daily. Appreciate input from podiatry. Appreciate input from vascular surgery however was stated patient is not candidate for any operation at this point but may benefit from debridement. CTA with runoff noted and review. JORDON with finding of stenooclusive disease as confirmed by CTA runoff. T continue current treatment and care Problem Qualifiers (1) Acute renal failure: Qualified Code: N17.9 - Acute renal failure, unspecified acute renal failure type (2) UTI (urinary tract infection): (3) CAD (coronary artery disease): (4) Diabetic foot ulcers: Subhash To MD Jun 05, 2016 10:47
[2016-06-05 12:00] VITALS: BP 137/65; PULSE 70; RESP 18; TEMP 98.8; O2SAT 100
[2016-06-05] MEDS: VANCOMYCIN INJ 1,500 MG in SODIUM CHLORID 0.9% 500 ML INJ 500 ML IV SCH (13:46)
[2016-06-05] MEDS: WARFARIN SOD 3 MG TAB PO SCH (15:37)
[2016-06-05 16:00] VITALS: BP 126/61; PULSE 73; RESP 18; TEMP 98.2; O2SAT 100
[2016-06-05 20:00] VITALS: BP 127/66; PULSE 88; RESP 20; TEMP 98.6; O2SAT 98
--- NOTE | 2016-06-05 21:00 | RADRPT ---
EXAM DATE/TIME: 06/05/2016 20:02 [facility] COMPARISON: No previous studies available for comparison. INDICATIONS : Right arm swelling. MEDICAL HISTORY : Chronic obstructive pulmonary disease. Congestive heart failure. Hypertension. Hearing loss. Syncope. Afib. Anticoagulant therapy, Warfarin. Diabetes. Depression. MRSA. SURGICAL HISTORY : Cholecystectomy. Tonsillectomy. Left toe amputation. ENCOUNTER: Initial ACUITY: 1 day PAIN SCORE: 3/10 LOCATION: Right arm. FINDINGS: There is spontaneous flow documented in the brachial, basilic, cephalic, axillary, and subclavian vei ns. The vessels are compressible and augmentation response is documented. No filling defects are se en. The flow is phasic with respiration. Direction of flow in the jugular vein is caudal. CONCLUSION: Normal examination. Don Izaguirre MD on June 05, 2016 at 20:58 Board Certified Radiologist. This report was verified electronically.
[2016-06-06] VITALS (9 sets, daily range): BP systolic 122–148; BP diastolic 58–64; PULSE 68–80; RESP 16–28; TEMP 98–99.3; O2SAT 95–100
[2016-06-06 05:14] LABS: AUTOMATED NEUTROPHIL # 3.7 TH/MM3 (1.8-7.7); BASOPHIL # 0.1 TH/MM3 (0-0.2); BASOPHIL % 1.1 % (0.0-2.0); EOSINOPHIL # 0.2 TH/MM3 (0-0.4); EOSINOPHIL % 3.8 % (0.0-4.0); HEMATOCRIT 22.1 % (39.0-51.0); HEMO FLAGS DIFF FINAL; LYMPH % 18.6 % (9.0-44.0); MEAN CELL VOLUME 90.8 FL (80.0-100.0); MEAN CORPUSCULAR HGB CONC 34.2 % (32.0-36.0); MONO % 8.4 % (0.0-8.0); NEUT % 68.1 % (16.0-70.0); PLATELET COUNT 135 TH/MM3 (150-450); RED BLOOD COUNT 2.44 MIL/MM3 (4.50-5.90); RED CELL DISTRIBUTION WIDTH 17.3 % (11.6-17.2); WHITE BLOOD COUNT 5.4 TH/MM3 (4.0-11.0)
[2016-06-06 05:22] LABS: INTERNATIONAL NORMALIZED RATIO 2.1 RATIO; PROTHROMBIN TIME - PATIENT 23.5 SEC (9.8-11.6)
[2016-06-06] MEDS: INSULIN ASPART SUPPLEMENTAL SCALE SQ SCH ×3 (05:25→17:18)
[2016-06-06 05:35] LABS: BICARBONATE 28.9 MEQ/L (21.0-32.0); POTASSIUM 3.4 MEQ/L (3.5-5.1)
[2016-06-06] MEDS: FLUCONAZOLE 200 MG TAB PO SCH (08:39)
[2016-06-06] MEDS: TAMSULOSIN HCL 0.4 MG CAP PO SCH (08:39)
[2016-06-06] MEDS: PANTOPRAZOLE SOD 40 MG DELAYED RELEASE TAB PO SCH (08:39)
[2016-06-06] MEDS: SODIUM CHLORIDE 0.9% FLUSH 5 ML FLUSH IV FLUSH SCH ×2 (08:40→21:00)
[2016-06-06] MEDS: COLLAGENASE OINT 30 GM TUBE TOP SCH (08:41)
[2016-06-06] MEDS ORDERED: PHARMACY ORDERED LAB XX ONE (13:45)
[2016-06-06] MEDS: VANCOMYCIN INJ 1,500 MG in SODIUM CHLORID 0.9% 500 ML INJ 500 ML IV SCH (13:52)
--- NOTE | 2016-06-06 14:34 | HHI.PR ---
Subjective Remarks Follow-up sepsis 05/30/16-patient seen and examined, no acute event overnight and currently afebrile. Denies any chest pain or shortness of breath. 05/31/16-patient seen and examined. Afebrile. No complain and stable. 06/01/16-patient seen and examined; case discussed with podiatry Dr. Anaya. No acute event overnight. Currently stable. 06/02/16-patient seen and examined; stable and no complain. He was seen by vascular surgery yesterday and no plan for any surgery. 06/03/16-she seen and examined; currently afebrile and no acute event overnight. 06/04/16-patient seen and examined; no complain and stable. No acute event overnight. 06/05/16-patient seen and examined; afebrile and stable. No change. 06/06/16-patient seen and examined-no change, no acute event overnight, afebrile. Taking by mouth without any complication nausea and vomiting. Objective Vitals Vital Signs Date Time Temp Pulse Resp B/P Pulse Ox O2 Delivery O2 Flow Rate FiO2 06/06/16 12:00 98.7 73 16 148/64 97 06/06/16 10:00 Nasal Cannula 2.00 06/06/16 08:18 96 Nasal Cannula 2.00 06/06/16 08:00 98.2 75 18 126/61 98 06/06/16 04:00 98.0 68 18 126/60 99 06/06/16 00:26 98.2 72 20 130/58 95 06/05/16 20:00 98.6 88 20 127/66 98 06/05/16 18:27 Nasal Cannula 2.00 06/05/16 16:00 98.2 73 18 126/61 100 I/O 06/05/16 06/05/16 06/05/16 06/06/16 06/06/16 06/06/16 07:00 15:00 23:00 07:00 15:00 23:00 Intake Total 180 ml 960 ml Output Total 600 ml 1250 ml 300 ml 400 ml Balance -420 ml -290 ml -300 ml -400 ml Intake Oral 180 ml 960 ml Output Urine Total 600 ml 1250 ml 300 ml 400 ml Stool Total 0 ml # Bowel Movements 0 0 Result Diagram: 06/06/169 06/06/16 0449 Objective Remarks GENERAL: No acute distress SKIN: Warm and dry. HEAD: Normocephalic. EYES: No scleral icterus. No injection or drainage. NECK: Supple, trachea midline. No JVD or lymphadenopathy. CARDIOVASCULAR: Regular rate and rhythm without murmurs, gallops, or rubs. RESPIRATORY: Breath sounds equal bilaterally. No accessory muscle use. GASTROINTESTINAL: Abdomen soft, non-tender, nondistended. MUSCULOSKELETAL: No cyanosis, or edema. Dressing to bilateral foot BACK: Nontender without obvious deformity. No CVA tenderness. A/P Problem List: (1) Severe sepsis ICD Code: A41.9 Status: Acute (2) Acute metabolic encephalopathy ICD Code: G93.41 Status: Resolved (3) Hyperkalemia ICD Code: E87.5 Status: Resolved (4) Dehydration ICD Code: E86.0 Status: Resolved (5) Acute renal failure ICD Code: N17.9 Status: Resolved (6) UTI (urinary tract infection) ICD Code: N39.0 Status: Acute (7) Leukocytosis ICD Code: D72.829 Status: Resolved (8) CAD (coronary artery disease) ICD Code: I25.10 Status: Chronic (9) PAD (peripheral artery disease) ICD Code: I73.9 Status: Chronic (10) Afib ICD Code: I48.91 Status: Chronic (11) CHF (congestive heart failure) ICD Code: I50.9 Status: Chronic (12) Diabetic foot ulcers ICD Code: E11.621 Status: Chronic Assessment and Plan 65-year-old male with 1. Resolved. Severe sepsis due to UTI, on IV Vanc and Diflucan by mouth. Yeast in Cultures 2. Coagulopathy, INR or optic and continue Coumadin for afib 3. Type 2 diabetes, Sliding-scale insulin for diabetes, controlled 4. Anemia, Hg 8.8 s/p transfusion, (05/24, Podiatry Ulcers excisionally debrided of necrotic and fibrotic tissue down to tendon R leg with subsequent 2hrs of bleeding) 5. MERRY, improved with IVF. avoid nephrotoxin resolved; Keep cabello in; outpatient urology evaluation. 6. Hypotension, resolved 7. PVD/Foot ulcers, cultures +MRSA, chronic PAD. Wound care daily. Appreciate input from podiatry. Appreciate input from vascular surgery however was stated patient is not candidate for any operation at this point but may benefit from debridement. CTA with runoff noted and review. JORDON with finding of stenooclusive disease as confirmed by CTA runoff. T continue current treatment and care Problem Qualifiers (1) Acute renal failure: Qualified Code: N17.9 - Acute renal failure, unspecified acute renal failure type (2) UTI (urinary tract infection): (3) CAD (coronary artery disease): (4) Diabetic foot ulcers: Subhash To MD Jun 06, 2016 14:33
--- NOTE | 2016-06-06 15:29 | HHI.IDPN ---
Subjective Subjective Remarks afebrile CTA was reviewed: b/l high grade stenosis Vasc surgery input appreciatedl; recommended against surgica intervention 2/2 comorbidities no active co Antibiotics fluconazole vancomycin Allergies: Coded Allergies: *MDRO Multi-Drug Resistant Organism (Verified Adverse Reaction, Unknown, MRSA, 05/29/16) MRSA (toe wound) - 01/27/16; (foot) - 05/24/16 MRSA PCR Screen POSITIVE - 05/26/16 Objective . Vital Signs Date Time Temp Pulse Resp B/P Pulse Ox O2 Delivery O2 Flow Rate FiO2 06/06/16 12:00 98.7 73 16 148/64 97 06/06/16 10:00 Nasal Cannula 2.00 06/06/16 08:18 96 Nasal Cannula 2.00 06/06/16 08:00 98.2 75 18 126/61 98 06/06/16 04:00 98.0 68 18 126/60 99 06/06/16 00:26 98.2 72 20 130/58 95 06/05/16 20:00 98.6 88 20 127/66 98 06/05/16 18:27 Nasal Cannula 2.00 06/05/16 16:00 98.2 73 18 126/61 100 06/05/16 06/05/16 06/06/16 15:00 23:00 07:00 Intake Total 960 ml Output Total 1250 ml 300 ml 400 ml Balance -290 ml -300 ml -400 ml Intake Oral 960 ml Output Urine Total 1250 ml 300 ml 400 ml # Bowel Movements 0 0 . Laboratory Tests Test 06/06/16 04:49 White Blood Count 5.4 TH/MM3 Red Blood Count 2.44 MIL/MM3 Hemoglobin 7.6 GM/DL Hematocrit 22.1 % Mean Corpuscular Volume 90.8 FL Mean Corpuscular Hemoglobin 31.0 PG Mean Corpuscular Hemoglobin 34.2 % Concent Red Cell Distribution Width 17.3 % Platelet Count 135 TH/MM3 Mean Platelet Volume 7.5 FL Neutrophils (%) (Auto) 68.1 % Lymphocytes (%) (Auto) 18.6 % Monocytes (%) (Auto) 8.4 % Eosinophils (%) (Auto) 3.8 % Basophils (%) (Auto) 1.1 % Neutrophils # (Auto) 3.7 TH/MM3 Lymphocytes # (Auto) 1.0 TH/MM3 Monocytes # (Auto) 0.5 TH/MM3 Eosinophils # (Auto) 0.2 TH/MM3 Basophils # (Auto) 0.1 TH/MM3 CBC Comment DIFF FINAL Differential Comment Laboratory Tests Test 06/05/16 06/06/16 09:23 04:49 Creatinine 0.98 MG/DL 0.98 MG/DL Estimat Glomerular Filtration 76 ML/MIN 76 ML/MIN Rate Sodium Level 140 MEQ/L Potassium Level 3.4 MEQ/L Chloride Level 105 MEQ/L Carbon Dioxide Level 28.9 MEQ/L Anion Gap 6 MEQ/L Blood Urea Nitrogen 13 MG/DL Random Glucose 112 MG/DL Calcium Level 8.4 MG/DL Imaging Last Impressions Upper Extremity Ultrasound 06/05/16 0000 Signed Impressions: Service Date/Time: Sunday, June 05, 2016 20:02 - CONCLUSION: Normal examination. Don Izaguirre MD Aorta w/Runoff CTA 06/01/16 0000 Signed Impressions: Service Date/Time: May 12:13 - CONCLUSION: 1. Heavily diseased but adequate in flow down to the level of the groin bilaterally. 2. 3. Right le. Diffusely diseased superficial femoral artery with multiple areas of moderate and scattered areas of high grade stenosis. The popliteal is diseased but adequate in caliber. Distally, there is single vessel runoff into the foot via the anterior tibial. 5. 6. Left le. Heavily diseased superficial femoral with scattered areas of moderate and high grade stenosis. The popliteal is heavily diseased as well. Distally, there is occlusion of the origin of all 3 trifurcation vessels. Eventually, there is reconstitution of the anterior tibial and posterior tibial. Aric Cazares MD Chest X-Ray 05/25/16 0000 Signed Impressions: Service Date/Time: May 05:03 - CONCLUSION: Stable areas of mild atelectasis or scarring at the bilateral lungs. Bret Schilling MD Head CT 05/24/16 1217 Signed Impressions: Service Date/Time: Tuesday, May 24, 2016 12:55 - CONCLUSION: 1. No acute intracranial abnormality. 2. Atrophy. 3. Chronic small vessel ischemic change. Juvenal Jarquin Jr., MD Physical Exam CONSTITUTIONAL/GENERAL: This is an obese elderly patient, in no apparent distress. SKIN: No jaundice, rashes, or lesions. Skin temperature appropriate. Not diaphoretic. 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 significance ARF - improving -cont vancomcyin - complete 7-10 days of fluconazole - repeat UA, C+S - MRI to evaluate for underlying osteo : if MRI negative shorter course is appropriate - prognosis for healing is poor 2/2 vascular compromise dw Isabella Maria MD Jun 06, 2016 15:29
[2016-06-06] MEDS: WARFARIN SOD 3 MG TAB PO SCH (15:59)
[2016-06-06] MEDS: ACETAMINOPHEN/HYDROcodone 325 MG/5 MG TAB PO PRN (17:19)
[2016-06-07] VITALS (7 sets, daily range): BP systolic 121–134; BP diastolic 56–64; PULSE 63–74; RESP 18–24; TEMP 97.9–98.6; O2SAT 95–100
[2016-06-07] MEDS: INSULIN ASPART SUPPLEMENTAL SCALE SQ SCH ×5 (06:00→23:02)
[2016-06-07] MEDS: COLLAGENASE OINT 30 GM TUBE TOP SCH (08:23)
[2016-06-07] MEDS: ACETAMINOPHEN/HYDROcodone 325 MG/5 MG TAB PO PRN ×2 (08:23→17:05)
[2016-06-07] MEDS: TAMSULOSIN HCL 0.4 MG CAP PO SCH (08:23)
[2016-06-07] MEDS: PANTOPRAZOLE SOD 40 MG DELAYED RELEASE TAB PO SCH (08:23)
[2016-06-07] MEDS: SODIUM CHLORIDE 0.9% FLUSH 5 ML FLUSH IV FLUSH SCH ×2 (08:23→21:00)
[2016-06-07] MEDS: FLUCONAZOLE 200 MG TAB PO SCH (08:23)
[2016-06-07] MEDS ORDERED: GADODIAMIDE PF 287 MG/ML 5 ML VIAL (for RAD MRI) IV ONE (10:21)
[2016-06-07 10:46] LABS: PROTHROMBIN TIME - PATIENT 23.2 SEC (9.8-11.6)
--- NOTE | 2016-06-07 14:28 | RADRPT ---
EXAM DATE/TIME: 06/07/2016 09:34 [facility] COMPARISON: FOOT RIGHT COMPLETE ([id number]), January 22, 2016, 15:48. MRI ANKLE RIGHT W/O CONTRAST, January 22, 2016 , 14:59. INDICATIONS : Osteomyelitis. Wound on proximal posterior ankle. CONTRAST: 23 cc Omniscan (gadodiamide) IV MEDICAL HISTORY : Hypertension. Diabetes mellitus type 2. SURGICAL HISTORY : Tonsillectomy. Cholecystectomy. ENCOUNTER: Subsequent ACUITY: 4-6 days PAIN SCORE: 2/10 LOCATION: Right ankle TECHNIQUE: Multiplanar, multisequence MRI examination was performed without contrast and after the intravenous a dministration of gadolinium. FINDINGS: There is a cutaneous ulcer noted along the posterior lateral aspect of the ankle adjacent to the calc aneus. There is normal signal intensity within the body of the calcaneus. There is no evidence of any bone marrow edema to suggest osteomyelitis. There is soft tissue changes characteristic of a cutaneo us ulcer is seen on the coronal images. The rest of the bony structures demonstrate normal signal int ensity. There is evidence of an old healed fracture involving the distal fibula. There is anatomic al ignment the mortise joint. There is no evidence of a joint effusion. There is no focal or loculated f luid collections to suggest a soft tissue abscess. There is some nonspecific edema in the subcutaneou s soft tissues. No evidence of any abnormal enhancement on the postcontrast images. CONCLUSION: 1. No evidence of osteomyelitis. 2. Old healed fracture of the distal fibula. 3. Subcutaneous nonspecific edema. Juan Bonilla MD on June 07, 2016 at 14:18 Board Certified Radiologist. This report was verified electronically.
[2016-06-07] MEDS: WARFARIN SOD 3 MG TAB PO SCH (17:04)
--- NOTE | 2016-06-07 17:09 | HHI.PR ---
Subjective Remarks Patient reports that he is feeling ok. Pain is controlled. No new concerns. Objective Vitals Vital Signs Date Time Temp Pulse Resp B/P Pulse Ox O2 Delivery O2 Flow Rate FiO2 06/07/16 12:00 98.2 67 20 134/64 97 06/07/16 09:17 100 Nasal Cannula 2.00 06/07/16 09:02 Nasal Cannula 2.00 06/07/16 08:00 97.9 74 18 121/57 99 06/07/16 04:08 98.6 67 24 127/56 97 06/06/16 23:48 98.7 73 24 129/61 96 06/06/16 20:50 Nasal Cannula 2.00 06/06/16 20:25 99.3 80 28 122/63 97 06/06/16 17:59 96 Nasal Cannula 2.00 I/O 06/06/16 06/06/16 06/06/16 06/07/16 06/07/16 06/07/16 07:00 15:00 23:00 07:00 15:00 23:00 Intake Total 960 ml 480 ml 0 ml Output Total 400 ml 1050 ml 350 ml 500 ml Balance -400 ml -90 ml 130 ml -500 ml Intake Oral 960 ml 480 ml 0 ml Output Urine Total 400 ml 1050 ml 350 ml 500 ml # Bowel Movements 0 1 0 1 Result Diagram: 06/06/16 0449 06/06/16 0449 Imaging Last Impressions Ankle MRI 06/07/16 0000 Signed Impressions: Service Date/Time: Tuesday, June 07, 2016 09:34 - CONCLUSION: 1. No evidence of osteomyelitis. 2. Old healed fracture of the distal fibula. 3. Subcutaneous nonspecific edema. Juan Bonilla MD Upper Extremity Ultrasound 06/05/16 0000 Signed Impressions: Service Date/Time: Sunday, June 05, 2016 20:02 - CONCLUSION: Normal examination. Don Izaguirre MD Aorta w/Runoff CTA 06/01/16 0000 Signed Impressions: Service Date/Time: May 12:13 - CONCLUSION: 1. Heavily diseased but adequate in flow down to the level of the groin bilaterally. 2. 3. Right le. Diffusely diseased superficial femoral artery with multiple areas of moderate and scattered areas of high grade stenosis. The popliteal is diseased but adequate in caliber. Distally, there is single vessel runoff into the foot via the anterior tibial. 5. 6. Left le. Heavily diseased superficial femoral with scattered areas of moderate and high grade stenosis. The popliteal is heavily diseased as well. Distally, there is occlusion of the origin of all 3 trifurcation vessels. Eventually, there is reconstitution of the anterior tibial and posterior tibial. Aric Cazares MD Chest X-Ray 05/25/16 0000 Signed Impressions: Service Date/Time: May 05:03 - CONCLUSION: Stable areas of mild atelectasis or scarring at the bilateral lungs. Bret Schilling MD Head CT 05/24/16 1217 Signed Impressions: Service Date/Time: Tuesday, May 24, 2016 12:55 - CONCLUSION: 1. No acute intracranial abnormality. 2. Atrophy. 3. Chronic small vessel ischemic change. Juvenal Jarquin Jr., MD Objective Remarks GENERAL: This is a well-nourished, well-developed patient, in no apparent distress. SKIN: Necrotic ulcers of bilateral ankle/feet. CARDIOVASCULAR: Regular rate and rhythm without murmurs, gallops, or rubs. RESPIRATORY: Clear to auscultation. Breath sounds equal bilaterally. No wheezes , rales, or rhonchi. GASTROINTESTINAL: Abdomen soft, non-tender, nondistended. Normal active bowel sounds MUSCULOSKELETAL: Extremities without clubbing, cyanosis, or edema. NEURO: Alert & Oriented x4 to person, place, time, situation. Moves all ext x4 A/P Problem List: (1) Severe sepsis ICD Code: A41.9 Status: Acute (2) Acute metabolic encephalopathy ICD Code: G93.41 Status: Resolved (3) Hyperkalemia ICD Code: E87.5 Status: Resolved (4) Dehydration ICD Code: E86.0 Status: Resolved (5) Acute renal failure ICD Code: N17.9 Status: Resolved (6) UTI (urinary tract infection) ICD Code: N39.0 Status: Acute (7) Leukocytosis ICD Code: D72.829 Status: Resolved (8) CAD (coronary artery disease) ICD Code: I25.10 Status: Chronic (9) PAD (peripheral artery disease) ICD Code: I73.9 Status: Chronic (10) Afib ICD Code: I48.91 Status: Chronic (11) CHF (congestive heart failure) ICD Code: I50.9 Status: Chronic (12) Diabetic foot ulcers ICD Code: E11.621 Status: Chronic Assessment and Plan 65-year-old male with PVD/Foot ulcers, cultures +MRSA, chronic PAD. Wound care daily. Appreciate input from podiatry. Appreciate input from vascular surgery, patient is not candidate for surgical intervention. CTA with runoff noted and review. JORDON with finding of stenooclusive disease as confirmed by CTA runoff. Continue current treatment and care. - MRI of the foot per ID to rule out osteo. Resolving severe sepsis due to UTI, on IV Vanc and Diflucan by mouth. Yeast in Cultures. ID following. Coagulopathy, INR monitoring and continue Coumadin for afib Type 2 diabetes, Sliding-scale insulin for diabetes, controlled Anemia, Hg 8.8 s/p transfusion, (05/24, Podiatry Ulcers excisionally debrided of necrotic and fibrotic tissue down to tendon R leg with subsequent 2hrs of bleeding) MERRY, resolved with IVF. avoid nephrotoxin. Keep cabello in; outpatient urology evaluation. Problem Qualifiers (1) Acute renal failure: Qualified Code: N17.9 - Acute renal failure, unspecified acute renal failure type (2) UTI (urinary tract infection): (3) CAD (coronary artery disease): (4) Diabetic foot ulcers: Jason Montemayor MD Jun 07, 2016 17:09
[2016-06-08] VITALS (7 sets, daily range): BP systolic 112–141; BP diastolic 61–70; PULSE 69–80; RESP 16–18; TEMP 97.6–98.7; O2SAT 95–99
[2016-06-08] MEDS: INSULIN ASPART SUPPLEMENTAL SCALE SQ SCH ×4 (06:00→17:00)
[2016-06-08] MEDS: VANCOMYCIN INJ 1,750 MG in SODIUM CHLORID 0.9% 500 ML INJ 500 ML IV SCH (06:28)
--- NOTE | 2016-06-08 08:41 | RADRPT ---
EXAM DATE/TIME: 06/07/2016 09:34 [facility] COMPARISON: MRI FOOT LEFT W/O CONTRAST, January 22, 2016, 14:59. INDICATIONS : Osteomyelitis. Wound on mid lateral foot. CONTRAST: 23 cc Omniscan (gadodiamide) IV MEDICAL HISTORY : Hypertension. Diabetes mellitus type 2. SURGICAL HISTORY : Cholecystectomy. Tonsillectomy. ENCOUNTER: Subsequent ACUITY: 4-6 days PAIN SCORE: 4/10 LOCATION: Left Foot, TECHNIQUE: Multiplanar, multisequence MRI examination was performed without contrast and after the intravenous a dministration of gadolinium. FINDINGS: Patient has had little toe and fifth metatarsal amputation. There is a deep soft tissue ulcer plantar /lateral aspect of the midfoot and extending down to the cortical surface of the cuboid and base of t he fourth metatarsal. There is associated osteomyelitis of the bones. Cortical destruction of the fou rth metatarsal base is estimated at 14 x 19 mm in size and signal abnormality extends as deep as 5 mm into the medullary space. The cortical destruction of the cuboid is approximately 16 mm in diameter and there is T1 signal abnormality that extends deep into the bone, focally almost to the medial alba ex, for example series 6 image 16. I don't see an abscess. At the time of this metatarsal base resection, I believe peroneus brevis was anchored to the lateral aspect of the cuboid and its attachment is along the proximal edge of the area of cuboid osteomyeliti s. I don't see a peroneus brevis tear. Peroneus longus is quite clearly intact. Since the prior MRI, the second toe has been amputated. Edematous and indurated soft tissues surround the head of the second metatarsal which appears chronically eroded, for example series 6 image 19. I don't see corresponding T1 signal abnormality extending deep into the second metatarsal remnant, how ever. Subcutaneous induration seen overlying the calcaneal tubercle including the plantar fascia insertion. The plantar fascia is mildly thickened, intact. There is no drainable abscess. No evidence of calcan eal osteomyelitis. There is mild tendinosis with enthesopathic changes of the distal Achilles. There is moderate osteoarthritis of the third tarsometatarsal joint with reactive appearing marrow ed lico. CONCLUSION: 1. Deep soft tissue ulcer of the midfoot and with associated osteomyelitis of the plantar/lateral asp ect of the fourth metatarsal base and mid to distal cuboid. Please see above. Fifth metatarsal previo usly resected. 2. Second toe amputation since the prior MRI. Indurated soft tissues and focal cortical destruction s een of the second metatarsal head remnant. No deep osteomyelitis of the second metatarsal. 3. No soft tissue abscesses are demonstrated. 4. Apparent cellulitis of the heel pad. No calcaneal osteomyelitis demonstrated. Bret Truong MD on June 08, 2016 at 8:16 Board Certified Radiologist. This report was verified electronically.
[2016-06-08] MEDS: SODIUM CHLORIDE 0.9% FLUSH 5 ML FLUSH IV FLUSH SCH ×2 (09:09→21:46)
[2016-06-08] MEDS: TAMSULOSIN HCL 0.4 MG CAP PO SCH (09:11)
[2016-06-08] MEDS: PANTOPRAZOLE SOD 40 MG DELAYED RELEASE TAB PO SCH (09:11)
[2016-06-08] MEDS: FLUCONAZOLE 200 MG TAB PO SCH (09:11)
[2016-06-08] MEDS: COLLAGENASE OINT 30 GM TUBE TOP SCH (09:13)
[2016-06-08 09:15] LABS: HEMATOCRIT 22.8 % (39.0-51.0); MEAN CELL VOLUME 91.1 FL (80.0-100.0); MEAN CORPUSCULAR HEMOGLOBIN 31.2 PG (27.0-34.0); MEAN CORPUSCULAR HGB CONC 34.2 % (32.0-36.0); PLATELET COUNT 138 TH/MM3 (150-450); RED CELL DISTRIBUTION WIDTH 17.6 % (11.6-17.2); REVIEW FLAG FINAL
[2016-06-08 09:33] LABS: INTERNATIONAL NORMALIZED RATIO 2.3 RATIO
[2016-06-08 09:39] LABS: BICARBONATE 30.1 MEQ/L (21.0-32.0); POTASSIUM 3.8 MEQ/L (3.5-5.1)
[2016-06-08] MEDS: ACETAMINOPHEN/HYDROcodone 325 MG/5 MG TAB PO PRN (12:10)
[2016-06-08] MEDS: WARFARIN SOD 3 MG TAB PO SCH (15:40)
--- NOTE | 2016-06-08 18:42 | HHI.PR ---
Subjective Remarks Patient reports that he is doing okay. No new complaints. He was advised of the MRI findings of osteomyelitis. Objective Vitals Vital Signs Date Time Temp Pulse Resp B/P Pulse Ox O2 Delivery O2 Flow Rate FiO2 06/08/16 16:00 98.5 72 18 141/63 99 06/08/16 13:20 18 06/08/16 12:52 98 Nasal Cannula 2.00 06/08/16 12:00 97.8 70 16 137/64 98 06/08/16 09:00 Nasal Cannula 2.00 06/08/16 08:00 98.1 80 16 123/70 98 06/08/16 04:00 97.6 73 18 112/66 95 06/08/16 00:00 97.9 69 18 136/61 97 06/07/16 20:50 Nasal Cannula 2.00 06/07/16 20:00 98.3 73 18 133/63 98 I/O 06/07/16 06/07/16 06/07/16 06/08/16 06/08/16 06/08/16 07:00 15:00 23:00 07:00 15:00 23:00 Intake Total 0 ml 720 ml 240 ml 2 ml Output Total 500 ml 1125 ml 550 ml 500 ml Balance -500 ml -405 ml -310 ml -500 ml 2 ml Intake Oral 0 ml 720 ml 240 ml IV Total 2 ml Output Urine Total 500 ml 1125 ml 550 ml 500 ml # Bowel Movements 1 0 Result Diagram: 06/08/16 0732 06/08/16 0732 Objective Remarks GENERAL: This is a well-nourished, well-developed patient, in no apparent distress. SKIN: Necrotic ulcers of bilateral ankle/feet. CARDIOVASCULAR: Regular rate and rhythm without murmurs, gallops, or rubs. RESPIRATORY: Clear to auscultation. Breath sounds equal bilaterally. No wheezes , rales, or rhonchi. GASTROINTESTINAL: Abdomen soft, non-tender, nondistended. Normal active bowel sounds NEURO: Alert & Oriented x4 to person, place, time, situation. Moves all ext x4 A/P Problem List: (1) Severe sepsis ICD Code: A41.9 Status: Acute (2) Acute metabolic encephalopathy ICD Code: G93.41 Status: Resolved (3) Hyperkalemia ICD Code: E87.5 Status: Resolved (4) Dehydration ICD Code: E86.0 Status: Resolved (5) Acute renal failure ICD Code: N17.9 Status: Resolved (6) UTI (urinary tract infection) ICD Code: N39.0 Status: Acute (7) Leukocytosis ICD Code: D72.829 Status: Resolved (8) CAD (coronary artery disease) ICD Code: I25.10 Status: Chronic (9) PAD (peripheral artery disease) ICD Code: I73.9 Status: Chronic (10) Afib ICD Code: I48.91 Status: Chronic (11) CHF (congestive heart failure) ICD Code: I50.9 Status: Chronic (12) Diabetic foot ulcers ICD Code: E11.621 Status: Chronic Assessment and Plan 65-year-old male with PVD/Foot ulcers, cultures +MRSA, chronic PAD. Wound care daily. Appreciate input from vascular surgery, patient is not candidate for surgical intervention. CTA with runoff noted and review. JORDON with finding of stenooclusive disease as confirmed by CTA runoff. - MRI revealed deep soft tissue ulcer of the midfoot with associated osteomyelitis of the plantar/lateral aspect of the fourth metatarsal base and mid to distal cuboid. - I discussed the case with infectious disease. Podiatry has been consulted. He is compromised from a vascular standpoint and at risk for significant impaired healing from surgery. However osteomyelitis needs to be treated surgically. He will probably need an amputation at some point. I also discussed with Dr. Garcia who also agree that he probably needs an amputation. Will discuss with the patient again tomorrow. It is worth noting that he is not ambulatory at baseline. Resolving severe sepsis due to UTI, on IV Vanc and Diflucan by mouth. Yeast in Cultures. ID following. Coagulopathy, INR monitoring and continue Coumadin for afib Type 2 diabetes, Sliding-scale insulin for diabetes, controlled Anemia, Hg 8.8 s/p transfusion, (05/24, Podiatry Ulcers excisionally debrided of necrotic and fibrotic tissue down to tendon R leg with subsequent 2hrs of bleeding) MERRY, resolved with IVF. avoid nephrotoxin. Keep cabello in; outpatient urology evaluation. Problem Qualifiers (1) Acute renal failure: Qualified Code: N17.9 - Acute renal failure, unspecified acute renal failure type (2) UTI (urinary tract infection): (3) CAD (coronary artery disease): (4) Diabetic foot ulcers: Rimpel,Ricardy MD Jun 08, 2016 18:41
--- NOTE | 2016-06-08 18:44 | PD.POD ---
Subjective Pain score: 3 Remarks poor historian, wants limbs saved does not want to discuss BK Past Med/Surg/Social History Social History Smoking Status: Never Smoker Objective Vital Signs Vital Signs Date Time Temp Pulse Resp B/P Pulse Ox O2 Delivery O2 Flow Rate FiO2 06/08/16 16:00 98.5 72 18 141/63 99 06/08/16 13:20 18 06/08/16 12:52 98 Nasal Cannula 2.00 06/08/16 12:00 97.8 70 16 137/64 98 06/08/16 09:00 Nasal Cannula 2.00 06/08/16 08:00 98.1 80 16 123/70 98 06/08/16 04:00 97.6 73 18 112/66 95 06/08/16 00:00 97.9 69 18 136/61 97 06/07/16 20:50 Nasal Cannula 2.00 06/07/16 20:00 98.3 73 18 133/63 98 Coded Allergies: *MDRO Multi-Drug Resistant Organism (Verified Adverse Reaction, Unknown, MRSA, 05/29/16) MRSA (toe wound) - 01/27/16; (foot) - 05/24/16 MRSA PCR Screen POSITIVE - 05/26/16 Medications and IVs Administered Medications Medications (Trade) Dose Ordered Sig/Thaddeus Route PRN Reason Start Time Stop Time Status Last Admin Dose Admin IV Flush (NS Flush) 2 ml BID IV FLUSH 05/24/16 21:00 06/08/16 09:09 Miscellaneous Information 1 Q361D XX 05/24/16 14:45 05/24/16 17:09 Insulin Aspart (NovoLOG SUPPLEMENTAL SCALE) 1 Q6HR SQ 05/24/16 15:30 06/08/16 11:53 Collagenase (Santyl Oint) 1 applic DAILY TOP 05/25/16 09:00 06/08/16 09:13 Acetaminophen/ Hydrocodone Bitart ([place] 5-325 Mg) 1 tab Q6H PRN PO PAIN 05/24/16 23:45 06/08/16 12:10 Fluconazole (Diflucan) 200 mg DAILY PO 05/27/16 09:00 06/08/16 09:11 Tamsulosin HCl (Flomax) 0.4 mg DAILY PO 05/28/16 15:00 06/08/16 09:11 Pantoprazole Sodium (Protonix) 40 mg DAILY PO 05/30/16 09:00 06/08/16 09:11 Warfarin Sodium 3 mg 3 mg DAILY@16 PO 06/05/16 16:00 06/08/16 15:40 Vancomycin HCl/ Sodium Chloride (Vancomycin Inj/ NS 500 ml Inj) 517.5 ml @ 250 mls/hr Q36H IV 06/08/16 06:00 06/08/16 06:28 Other Results Last 72 hours Impressions Foot MRI 06/07/16 0000 Signed Impressions: Service Date/Time: Tuesday, June 07, 2016 09:34 - CONCLUSION: 1. Deep soft tissue ulcer of the midfoot and with associated osteomyelitis of the plantar/lateral aspect of the fourth metatarsal base and mid to distal cuboid. Please see above. Fifth metatarsal previously resected. 2. Second toe amputation since the prior MRI. Indurated soft tissues and focal cortical destruction seen of the second metatarsal head remnant. No deep osteomyelitis of the second metatarsal. 3. No soft tissue abscesses are demonstrated. 4. Apparent cellulitis of the heel pad. No calcaneal osteomyelitis demonstrated. Bret Truong MD Ankle MRI 06/07/16 0000 Signed Impressions: Service Date/Time: Tuesday, June 07, 2016 09:34 - CONCLUSION: 1. No evidence of osteomyelitis. 2. Old healed fracture of the distal fibula. 3. Subcutaneous nonspecific edema. Juan Bonilla MD Physical Exam General appearance: chronically ill Orientation: alert and oriented x3 Details Left foot show full thickness wound lateral foot that probes at least capsule of the CC joint, inverted foot with contracture. Right posterior calf wound without deep tissue exposed and appears to be over all granular and healthy immobile legs with contracture, feet are warm and pulses are hard to palpate.non sensate legs Assessment & Plan A/P left foot with large ulcer and hindfoot OM right calf ulcer- not infected. Reviewed case with vascular and medicine. Not a candidate for re vascularization. Bone debridement and wound vac is of minimal chance of healing the left foot. Recommend Ortho consult for Mau Leroy DPM Jun 08, 2016 18:44
[2016-06-09] VITALS: BP 120/65; PULSE 93; RESP 18; TEMP 99; O2SAT 97
[2016-06-09 04:00] VITALS: BP 137/66; PULSE 78; RESP 16; TEMP 98.6; O2SAT 99
[2016-06-09] MEDS: INSULIN ASPART SUPPLEMENTAL SCALE SQ SCH ×4 (05:55→16:48)
[2016-06-09 06:45] LABS: INTERNATIONAL NORMALIZED RATIO 2.4 RATIO; PROTHROMBIN TIME - PATIENT 27.5 SEC (9.8-11.6)
[2016-06-09 08:00] VITALS: BP 106/61; PULSE 74; RESP 18; TEMP 98.1; O2SAT 97
--- NOTE | 2016-06-09 08:24 | MB ---
cc: JAD NICHOLS DPM [facility] DATE OF CONSULTATION: 06/09/2016 REASON FOR CONSULTATION Evaluation for left lower extremity amputation. CONSULTING PHYSICIAN Dr. Nichols HISTORY OF PRESENT ILLNESS James is a 65-year-old male who has multiple medical problems. He was initially admitted with sepsis, hyperkalemia, renal failure and mental status changes. The patient has been hospitalized since 05/24/2016. He is currently on the 4th floor. He has been seen by Dr. Nichols for evaluation of his left foot. He has osteomyelitis of the left foot with chronic wounds. He has had wounds for several months. He has not ambulated in over a year. He has also been seen by vascular surgery. At this point he does not appear to be a candidate for revascularization. Also, he does not appear to be a candidate for salvage of his foot. PAST MEDICAL HISTORY ALLERGIES None. ILLNESSES 1. Diabetes. 2. Peripheral vascular disease. 3. Atrial fibrillation. 4. CHF. 5. COPD. SURGERIES 1. Cholecystectomy. 2. Left foot surgery. 3. Tonsillectomy. MEDICATIONS Please see EMR for complete list of inpatient medications. SOCIAL HISTORY The patient denies alcohol, tobacco or drug use. He is diabetic. He has not ambulated in over a year. FAMILY HISTORY Noncontributory. REVIEW OF SYSTEMS The patient denies headache, visual changes, neck pain, chest pain, shortness of breath, abdominal pain, nausea, vomiting or recent weight loss. He has diminished sensation in both feet from peripheral neuropathy. PHYSICAL EXAMINATION GENERAL: The patient is a well-developed, well-nourished 65-year-old male who is awake and alert. He is alert and oriented. VITAL SIGNS: Temperature 98.6, pulse 78, respirations 16, blood pressure 137/66. O2 sat is 99% on 2 liters nasal cannula. HEAD: The patient is normocephalic. Pupils are equal. NECK: Soft, nontender. Trachea is midline. ABDOMEN: Soft, nontender, nondistended. EXTREMITIES: Examination of the bilateral upper extremities reveals no significant pain or deformity with shoulder, elbow or wrist motion. He has intact sensation in all fingers. He has good capillary refill in all fingers. Skin is intact. Radial pulses are palpable. Examination of the right leg reveals no significant pain with hip, knee or ankle motion. His foot is relatively warm and well-perfused. He has diminished sensation in both feet. Examination of the left leg reveals no pain with hip or knee motion. He has chronic wounds over the lateral aspect of his foot. There is visible bone. There is some full-thickness loss of skin. MRI MRI of the foot was reviewed from 06/08/2016. There is osteomyelitis of the plantar aspect of the midfoot and metatarsals. IMPRESSION 1. Diabetes. 2. Peripheral vascular disease. 3. Left foot osteomyelitis. PLAN The treatment options were discussed with the patient. At this point I feel it is highly unlikely that salvage of his foot would be successful. At this point his best option would be amputation of the foot. I would recommend a below-knee amputation versus possible above-knee amputation. The patient has not ambulated in over a year and is highly unlikely to regain ambulatory status. The risks of surgery include bleeding, infection, injuries to arteries, nerves and blood vessels, wound complications, need for further surgery, as well as medical complications including blood clot, stroke, heart attack and were discussed. All questions were answered. At this point the patient's INR is elevated to 2.4. I will hold his Coumadin. I will plan on surgery on Sunday if his INR has normalized. All questions were answered. A mid-level provider in my office, nurse practitioner or PA, may see this patient on a follow-up basis and continue to implement the objective of this plan including: Starting or adjusting medications, injections of muscle, tendon, bursa or joints, cast application, orthotic or brace application, physical therapy, further radiographic studies including x-ray, MRI, CT, ultrasounds or bone scan, vascular studies, neurologic studies, or other specialist consultations, and proceeding with surgical management as appropriate. MD AUSTIN Sol/BETSY /7:08 AM /8:22 AM
[2016-06-09] MEDS: COLLAGENASE OINT 30 GM TUBE TOP SCH (09:00)
[2016-06-09] MEDS: TAMSULOSIN HCL 0.4 MG CAP PO SCH (09:31)
[2016-06-09] MEDS: PANTOPRAZOLE SOD 40 MG DELAYED RELEASE TAB PO SCH (09:32)
[2016-06-09] MEDS: SODIUM CHLORIDE 0.9% FLUSH 5 ML FLUSH IV FLUSH SCH ×2 (09:32→21:28)
[2016-06-09] MEDS: FLUCONAZOLE 200 MG TAB PO SCH (09:32)
[2016-06-09 12:00] VITALS: BP 132/64; PULSE 79; RESP 18; TEMP 98.5; O2SAT 99
[2016-06-09] MEDS: ACETAMINOPHEN/HYDROcodone 325 MG/5 MG TAB PO PRN (12:02)
--- NOTE | 2016-06-09 13:06 | HHI.PR ---
Subjective Remarks Patient reports that he is feeling okay. He has been seen by orthopedics. He is agreeable to the BKA. Objective Vitals Vital Signs Date Time Temp Pulse Resp B/P Pulse Ox O2 Delivery O2 Flow Rate FiO2 06/09/16 12:00 98.5 79 18 132/64 99 06/09/16 09:00 98 Nasal Cannula 2.00 06/09/16 08:00 98.1 74 18 106/61 97 06/09/16 04:00 98.6 78 16 137/66 99 06/09/16 00:00 99.0 93 18 120/65 97 06/08/16 20:00 98.7 79 18 138/63 97 06/08/16 20:00 Nasal Cannula 2.00 06/08/16 16:00 98.5 72 18 141/63 99 06/08/16 13:20 18 I/O 06/08/16 06/08/16 06/08/16 06/09/16 06/09/16 06/09/16 07:00 15:00 23:00 07:00 15:00 23:00 Intake Total 2 ml 480 ml 240 ml Output Total 500 ml 250 ml 650 ml Balance -500 ml 2 ml 230 ml -410 ml Intake Oral 480 ml 240 ml IV Total 2 ml Output Urine Total 500 ml 250 ml 650 ml # Bowel Movements 0 0 Result Diagram: 06/08/16 0732 06/08/16 0732 Objective Remarks GENERAL: This is a well-nourished, well-developed patient, in no apparent distress. SKIN: Necrotic ulcers of bilateral ankle/feet. CARDIOVASCULAR: Regular rate and rhythm without murmurs, gallops, or rubs. RESPIRATORY: Clear to auscultation. Breath sounds equal bilaterally. No wheezes , rales, or rhonchi. GASTROINTESTINAL: Abdomen soft, non-tender, nondistended. Normal active bowel sounds NEURO: Alert & Oriented x4 to person, place, time, situation. Moves all ext x4 A/P Problem List: (1) Severe sepsis ICD Code: A41.9 Status: Acute (2) Acute metabolic encephalopathy ICD Code: G93.41 Status: Resolved (3) Hyperkalemia ICD Code: E87.5 Status: Resolved (4) Dehydration ICD Code: E86.0 Status: Resolved (5) Acute renal failure ICD Code: N17.9 Status: Resolved (6) UTI (urinary tract infection) ICD Code: N39.0 Status: Acute (7) Leukocytosis ICD Code: D72.829 Status: Resolved (8) CAD (coronary artery disease) ICD Code: I25.10 Status: Chronic (9) PAD (peripheral artery disease) ICD Code: I73.9 Status: Chronic (10) Afib ICD Code: I48.91 Status: Chronic (11) CHF (congestive heart failure) ICD Code: I50.9 Status: Chronic (12) Diabetic foot ulcers ICD Code: E11.621 Status: Chronic Assessment and Plan 65-year-old male with PVD/Foot ulcers, cultures +MRSA, chronic PAD. Wound care daily. Appreciate input from vascular surgery, patient is not candidate for surgical intervention. CTA with runoff noted and review. JORDON with finding of stenooclusive disease as confirmed by CTA runoff. - MRI revealed deep soft tissue ulcer of the midfoot with associated osteomyelitis of the plantar/lateral aspect of the fourth metatarsal base and mid to distal cuboid. -All specialists including vascular surgery, podiatry, orthopedic surgery agreed that salvage surgery is not an option for the patient. He has agreed to undergo BKA. This will be done by orthopedics when INR is acceptable. Coumadin is on hold. Resolving severe sepsis due to UTI, on IV Vanc and Diflucan by mouth. Yeast in Cultures. ID following. Coagulopathy, INR monitoring and continue Coumadin for afib Type 2 diabetes, Sliding-scale insulin for diabetes, controlled Anemia, Hg 8.8 s/p transfusion, (05/24, Podiatry Ulcers excisionally debrided of necrotic and fibrotic tissue down to tendon R leg with subsequent 2hrs of bleeding) MERRY, resolved with IVF. avoid nephrotoxin. Keep cabello in; outpatient urology evaluation. Problem Qualifiers (1) Acute renal failure: Qualified Code: N17.9 - Acute renal failure, unspecified acute renal failure type (2) UTI (urinary tract infection): (3) CAD (coronary artery disease): (4) Diabetic foot ulcers: Jason Montemayor MD Jun 09, 2016 13:06
[2016-06-09 16:00] VITALS: BP 120/62; PULSE 71; RESP 20; TEMP 98.5; O2SAT 98
[2016-06-09] MEDS: VANCOMYCIN INJ 1,750 MG in SODIUM CHLORID 0.9% 500 ML INJ 500 ML IV SCH (16:23)
[2016-06-09 20:00] VITALS: BP 137/68; PULSE 83; RESP 20; TEMP 98.9; O2SAT 98
[2016-06-10] VITALS (7 sets, daily range): BP systolic 112–141; BP diastolic 56–62; PULSE 76–82; RESP 16–20; TEMP 98.3–98.8; O2SAT 96–99
[2016-06-10] MEDS: INSULIN ASPART SUPPLEMENTAL SCALE SQ SCH ×4 (05:29→18:00)
[2016-06-10 07:31] LABS: HEMATOCRIT 22.5 % (39.0-51.0); MEAN CELL VOLUME 91.4 FL (80.0-100.0); MEAN CORPUSCULAR HGB CONC 33.9 % (32.0-36.0); PLATELET COUNT 162 TH/MM3 (150-450); RED BLOOD COUNT 2.46 MIL/MM3 (4.50-5.90); RED CELL DISTRIBUTION WIDTH 17.8 % (11.6-17.2); REVIEW FLAG FINAL; WHITE BLOOD COUNT 5.7 TH/MM3 (4.0-11.0)
[2016-06-10 07:35] LABS: INTERNATIONAL NORMALIZED RATIO 2.4 RATIO; PROTHROMBIN TIME - PATIENT 27.7 SEC (9.8-11.6)
[2016-06-10 08:03] LABS: BICARBONATE 30.8 MEQ/L (21.0-32.0); POTASSIUM 3.8 MEQ/L (3.5-5.1)
[2016-06-10] MEDS: TAMSULOSIN HCL 0.4 MG CAP PO SCH (09:26)
[2016-06-10] MEDS: COLLAGENASE OINT 30 GM TUBE TOP SCH (09:26)
[2016-06-10] MEDS: SODIUM CHLORIDE 0.9% FLUSH 5 ML FLUSH IV FLUSH SCH ×2 (09:26→20:54)
[2016-06-10] MEDS: FLUCONAZOLE 200 MG TAB PO SCH (09:26)
[2016-06-10] MEDS: PANTOPRAZOLE SOD 40 MG DELAYED RELEASE TAB PO SCH (09:26)
--- NOTE | 2016-06-10 15:45 | HHI.PR ---
Subjective Remarks Patient reports that he is doing ok. No new complaints. No issues overnight. Objective Vitals Vital Signs Date Time Temp Pulse Resp B/P Pulse Ox O2 Delivery O2 Flow Rate FiO2 06/10/16 12:00 98.5 77 18 134/62 98 06/10/16 08:15 Nasal Cannula 2.00 06/10/16 08:00 98.8 78 20 116/60 99 06/10/16 04:00 98.7 76 18 112/56 98 06/10/16 00:13 98.5 78 20 141/60 97 06/09/16 20:00 98.9 83 20 137/68 98 06/09/16 20:00 Nasal Cannula 2.00 06/09/16 16:00 98.5 71 20 120/62 98 I/O 06/09/16 06/09/16 06/09/16 06/10/16 06/10/16 06/10/16 07:00 15:00 23:00 07:00 15:00 23:00 Intake Total 240 ml 960 ml 480 ml 240 ml Output Total 650 ml 600 ml 350 ml 650 ml Balance -410 ml 360 ml 130 ml -410 ml Intake Oral 240 ml 960 ml 480 ml 240 ml Output Urine Total 650 ml 600 ml 350 ml 650 ml # Bowel Movements 0 1 1 Result Diagram: 06/10/1609 06/10/16708 Objective Remarks GENERAL: This is a well-nourished, well-developed patient, in no apparent distress. SKIN: Necrotic ulcers of bilateral ankle/feet. CARDIOVASCULAR: Regular rate and rhythm without murmurs, gallops, or rubs. RESPIRATORY: Clear to auscultation. Breath sounds equal bilaterally. No wheezes , rales, or rhonchi. GASTROINTESTINAL: Abdomen soft, non-tender, nondistended. Normal active bowel sounds NEURO: Alert & Oriented x4 to person, place, time, situation. Moves all ext x4 A/P Problem List: (1) Severe sepsis ICD Code: A41.9 Status: Acute (2) Acute metabolic encephalopathy ICD Code: G93.41 Status: Resolved (3) Hyperkalemia ICD Code: E87.5 Status: Resolved (4) Dehydration ICD Code: E86.0 Status: Resolved (5) Acute renal failure ICD Code: N17.9 Status: Resolved (6) UTI (urinary tract infection) ICD Code: N39.0 Status: Acute (7) Leukocytosis ICD Code: D72.829 Status: Resolved (8) CAD (coronary artery disease) ICD Code: I25.10 Status: Chronic (9) PAD (peripheral artery disease) ICD Code: I73.9 Status: Chronic (10) Afib ICD Code: I48.91 Status: Chronic (11) CHF (congestive heart failure) ICD Code: I50.9 Status: Chronic (12) Diabetic foot ulcers ICD Code: E11.621 Status: Chronic Assessment and Plan 65-year-old male with PVD/Foot ulcers, cultures +MRSA, chronic PAD. Wound care daily. Appreciate input from vascular surgery, patient is not candidate for surgical intervention. CTA with runoff noted and review. JORDON with finding of stenooclusive disease as confirmed by CTA runoff. - MRI revealed deep soft tissue ulcer of the midfoot with associated osteomyelitis of the plantar/lateral aspect of the fourth metatarsal base and mid to distal cuboid. -All specialists including vascular surgery, podiatry, orthopedic surgery agreed that salvage surgery is not an option for the patient. He has agreed to undergo BKA. This will be done by orthopedics when INR is acceptable. Coumadin is on hold. Resolving severe sepsis due to UTI, on IV Vanc and Diflucan by mouth. Yeast in Cultures. ID following. Coagulopathy, INR monitoring and continue Coumadin for afib Type 2 diabetes, Sliding-scale insulin for diabetes, controlled Anemia, Hg 8.8 s/p transfusion, (05/24, Podiatry Ulcers excisionally debrided of necrotic and fibrotic tissue down to tendon R leg with subsequent 2hrs of bleeding) MERRY, resolved with IVF. avoid nephrotoxin. Keep cabello in; outpatient urology evaluation. Discharge Planning Awaiting BKA by Ortho Problem Qualifiers (1) Acute renal failure: Qualified Code: N17.9 - Acute renal failure, unspecified acute renal failure type (2) UTI (urinary tract infection): (3) CAD (coronary artery disease): (4) Diabetic foot ulcers: Jason Montemayor MD Jun 10, 2016 15:45
[2016-06-10] MEDS: ACETAMINOPHEN/HYDROcodone 325 MG/5 MG TAB PO PRN (22:40)
[2016-06-11] VITALS (8 sets, daily range): BP systolic 111–133; BP diastolic 53–63; PULSE 72–88; RESP 18–22; TEMP 98.2–98.9; O2SAT 95–100
[2016-06-11] MEDS: VANCOMYCIN INJ 1,750 MG in SODIUM CHLORID 0.9% 500 ML INJ 500 ML IV SCH (05:58)
[2016-06-11] MEDS: INSULIN ASPART SUPPLEMENTAL SCALE SQ SCH ×4 (05:58→18:15)
[2016-06-11] MEDS ORDERED: PHYTONADIONE 10 MG/ML VIAL SQ ONE (06:30)
[2016-06-11 07:01] LABS: BICARBONATE 27.6 MEQ/L (21.0-32.0); POTASSIUM 3.4 MEQ/L (3.5-5.1)
[2016-06-11 07:03] LABS: HEMATOCRIT 21.7 % (39.0-51.0); MEAN CELL VOLUME 91.9 FL (80.0-100.0); MEAN CORPUSCULAR HEMOGLOBIN 31.5 PG (27.0-34.0); MEAN CORPUSCULAR HGB CONC 34.3 % (32.0-36.0); PLATELET COUNT 166 TH/MM3 (150-450); RED BLOOD COUNT 2.36 MIL/MM3 (4.50-5.90); RED CELL DISTRIBUTION WIDTH 17.6 % (11.6-17.2); REVIEW FLAG FINAL; WHITE BLOOD COUNT 5.2 TH/MM3 (4.0-11.0)
--- NOTE | 2016-06-11 07:08 | PD.ORT.PN ---
Subjective Subjective Remarks s/p left foot ulcers and vacular insufficiency Objective Vitals Vital Signs Date Time Temp Pulse Resp B/P Pulse Ox O2 Delivery O2 Flow Rate FiO2 06/11/16 04:00 98.2 72 18 111/53 96 06/11/16 02:08 99 Nasal Cannula 2.00 06/11/16 00:00 98.5 75 18 114/56 97 06/10/16 20:00 Nasal Cannula 2.00 06/10/16 20:00 98.7 82 16 120/60 96 06/10/16 17:52 99 Nasal Cannula 2.00 06/10/16 16:12 98.3 78 20 141/62 99 06/10/16 12:00 98.5 77 18 134/62 98 06/10/16 08:15 Nasal Cannula 2.00 06/10/16 08:00 98.8 78 20 116/60 99 I/O 06/10/16 06/10/16 06/10/16 06/11/16 06/11/16 06/11/16 06:59 14:59 22:59 06:59 14:59 22:59 Intake Total 240 ml 120 ml Output Total 650 ml 1000 ml 400 ml 400 ml Balance -410 ml -1000 ml -400 ml -280 ml Intake Oral 240 ml 120 ml Output Urine Total 650 ml 1000 ml 400 ml 400 ml # Bowel Movements 1 1 1 Result Diagram: 06/11/16 0351 06/11/16 0351 Other Results Laboratory Tests Test 06/10/16 07:09 Prothrombin Time 27.7 SEC (9.8-11.6) Prothromb Time International 2.4 RATIO Ratio Objective Remarks LLE: bandaged. painful to touch. Assessment & Plan Assessment and Plan 1) Left Foot/leg vascular insufficiency -INR too high. coumadin stopped. -5mg Vit K -will recheck INR -resume diet -NPO after MN -eval for surgery tomorrow vs sunday -consents on front of chart. need to be signed Garry Malloy Jun 11, 2016 07:08
[2016-06-11 07:10] LABS: INTERNATIONAL NORMALIZED RATIO 1.8 RATIO
[2016-06-11] MEDS: PANTOPRAZOLE SOD 40 MG DELAYED RELEASE TAB PO SCH (10:09)
[2016-06-11] MEDS: FLUCONAZOLE 200 MG TAB PO SCH (10:09)
[2016-06-11] MEDS: TAMSULOSIN HCL 0.4 MG CAP PO SCH (10:09)
[2016-06-11] MEDS: SODIUM CHLORIDE 0.9% FLUSH 5 ML FLUSH IV FLUSH SCH ×2 (10:09→21:00)
[2016-06-11] MEDS: COLLAGENASE OINT 30 GM TUBE TOP SCH (10:10)
[2016-06-11] MEDS: ACETAMINOPHEN/HYDROcodone 325 MG/5 MG TAB PO PRN ×2 (10:57→21:29)
--- NOTE | 2016-06-11 14:40 | HHI.PR ---
Subjective Remarks Patient seen and evaluated today in follow-up for Left Foot/leg vascular insufficiency. Cortisol consultation appreciated. INR 1.8 today. No new events overnight. Tolerating current antibiotic Objective Vitals Vital Signs Date Time Temp Pulse Resp B/P Pulse Ox O2 Delivery O2 Flow Rate FiO2 06/11/16 12:06 98.7 80 19 127/63 98 06/11/16 10:50 Nasal Cannula 2.00 06/11/16 08:06 98.2 72 19 116/57 97 06/11/16 08:03 95 Nasal Cannula 2.00 06/11/16 04:00 98.2 72 18 111/53 96 06/11/16 02:08 99 Nasal Cannula 2.00 06/11/16 00:00 98.5 75 18 114/56 97 06/10/16 20:00 Nasal Cannula 2.00 06/10/16 20:00 98.7 82 16 120/60 96 06/10/16 17:52 99 Nasal Cannula 2.00 06/10/16 16:12 98.3 78 20 141/62 99 I/O 06/10/16 06/10/16 06/10/16 06/11/16 06/11/16 06/11/16 07:00 15:00 23:00 07:00 15:00 23:00 Intake Total 240 ml 120 ml Output Total 650 ml 1000 ml 400 ml 400 ml Balance -410 ml -1000 ml -400 ml -280 ml Intake Oral 240 ml 120 ml Output Urine Total 650 ml 1000 ml 400 ml 400 ml # Bowel Movements 1 1 1 Result Diagram: 06/11/16 0351 06/11/16 0351 Imaging Last Impressions Foot MRI 06/07/16 0000 Signed Impressions: Service Date/Time: Tuesday, June 07, 2016 09:34 - CONCLUSION: 1. Deep soft tissue ulcer of the midfoot and with associated osteomyelitis of the plantar/lateral aspect of the fourth metatarsal base and mid to distal cuboid. Please see above. Fifth metatarsal previously resected. 2. Second toe amputation since the prior MRI. Indurated soft tissues and focal cortical destruction seen of the second metatarsal head remnant. No deep osteomyelitis of the second metatarsal. 3. No soft tissue abscesses are demonstrated. 4. Apparent cellulitis of the heel pad. No calcaneal osteomyelitis demonstrated. Bret Truong MD Ankle MRI 06/07/16 0000 Signed Impressions: Service Date/Time: Tuesday, June 07, 2016 09:34 - CONCLUSION: 1. No evidence of osteomyelitis. 2. Old healed fracture of the distal fibula. 3. Subcutaneous nonspecific edema. Juan Bonilla MD Upper Extremity Ultrasound 06/05/16 0000 Signed Impressions: Service Date/Time: Sunday, June 05, 2016 20:02 - CONCLUSION: Normal examination. Don Izaguirre MD Aorta w/Runoff CTA 06/01/16 0000 Signed Impressions: Service Date/Time: May 12:13 - CONCLUSION: 1. Heavily diseased but adequate in flow down to the level of the groin bilaterally. 2. 3. Right le. Diffusely diseased superficial femoral artery with multiple areas of moderate and scattered areas of high grade stenosis. The popliteal is diseased but adequate in caliber. Distally, there is single vessel runoff into the foot via the anterior tibial. 5. 6. Left le. Heavily diseased superficial femoral with scattered areas of moderate and high grade stenosis. The popliteal is heavily diseased as well. Distally, there is occlusion of the origin of all 3 trifurcation vessels. Eventually, there is reconstitution of the anterior tibial and posterior tibial. Aric Cazares MD Chest X-Ray 05/25/16 0000 Signed Impressions: Service Date/Time: May 05:03 - CONCLUSION: Stable areas of mild atelectasis or scarring at the bilateral lungs. Bret Schilling MD Head CT 05/24/16 1217 Signed Impressions: Service Date/Time: Tuesday, May 24, 2016 12:55 - CONCLUSION: 1. No acute intracranial abnormality. 2. Atrophy. 3. Chronic small vessel ischemic change. Juvenal Jarquin Jr., MD Objective Remarks GENERAL: This is a well-nourished, well-developed patient, frail male CARDIOVASCULAR: Regular rate and rhythm without murmurs, gallops, or rubs. RESPIRATORY: Clear to auscultation. Breath sounds equal bilaterally. No wheezes , rales, or rhonchi. GASTROINTESTINAL: Abdomen soft, non-tender, nondistended. Normal active bowel sounds MUSCULOSKELETAL: Extremities upper wnl, lower with partial toe amputations, R posterior lower leg has ulceration 6cm x 4cm with central necrotic tissue over exposed achilles tendon. There is currently no purulence noted. NEURO: Alert & Oriented x4 to person, place, time, situation. Moves all ext x4 A/P Assessment and Plan 1. Resolved. Severe sepsis due to UTI, Yeast in Cultures, on fluconazole 05/27 for 7-10d per ID 2. Coagulopathy, 1.8 INR on Coumadin for afib 3. Type 2 diabetes, Sliding-scale insulin for diabetes, controlled 4. Anemia, Hg 7.4 1 unit PRBCs transfusion today, (05/24, Podiatry Ulcers excisionally debrided of necrotic and fibrotic tissue down to tendon R leg with subsequent 2hrs of bleeding) 5. MERRY, improved with IVF and relief of retention. follow, avoid nephrotoxin resolved; Patient with urinary retention on admission (800ml in catheter), ptn poorly ambulatory. Keep cabello in; out patient uro eval 6. Hypotension, resolved 7. Foot ulcers, cultures +MRSA, chronic PAD. Wound care daily. On vancomycin, for BKA in a.m. per orthopedic Vandana Sena MD Jun 11, 2016 14:40
[2016-06-11] MEDS ORDERED: SODIUM CHLOR 0.9% 250 ML INJ 250 ML IV ONE (15:00)
[2016-06-11] MEDS ORDERED: ACETAMINOPHEN 325 MG TAB PO PRN (15:00)
[2016-06-11] MEDS ORDERED: FUROSEMIDE 20 MG/2 ML VIAL IV ONE (15:00)
[2016-06-11] MEDS ORDERED: diphenhydrAMINE HCL 25 MG CAP PO PRN (15:00)
[2016-06-12] VITALS (9 sets, daily range): BP systolic 114–131; BP diastolic 56–66; PULSE 74–86; RESP 20–24; TEMP 98.3–99.8; O2SAT 98–100
[2016-06-12] MEDS: INSULIN ASPART SUPPLEMENTAL SCALE SQ SCH ×5 (06:00→23:43)
[2016-06-12] MEDS ORDERED: PHYTONADIONE 10 MG/ML VIAL SQ ONE (06:50)
--- NOTE | 2016-06-12 07:24 | PD.ORT.PN ---
Subjective Subjective Remarks s/p left foot ulcers and vacular insufficiency Objective Vitals Vital Signs Date Time Temp Pulse Resp B/P Pulse Ox O2 Delivery O2 Flow Rate FiO2 06/12/16 04:00 98.4 78 22 129/59 100 06/12/16 00:35 99.0 81 24 114/65 100 06/12/16 00:30 98.7 86 22 116/64 99 06/12/16 00:15 99.0 81 24 114/65 100 06/11/16 20:51 98.9 88 22 126/58 96 06/11/16 20:30 Nasal Cannula 2.00 06/11/16 16:07 98.7 78 20 133/63 100 06/11/16 12:06 98.7 80 19 127/63 98 06/11/16 10:50 Nasal Cannula 2.00 06/11/16 08:06 98.2 72 19 116/57 97 06/11/16 08:03 95 Nasal Cannula 2.00 I/O 06/11/16 06/11/16 06/11/16 06/12/16 06/12/16 06/12/16 07:00 15:00 23:00 07:00 15:00 23:00 Intake Total 120 ml 480 ml 560 ml Output Total 400 ml 900 ml 200 ml Balance -280 ml -420 ml -200 ml 560 ml Intake Oral 120 ml 480 ml IV Total 560 ml Output Urine Total 400 ml 900 ml 200 ml # Bowel Movements 1 1 Result Diagram: 06/11/16 0351 06/11/16 0351 Objective Remarks LLE: bandaged. painful to touch. Assessment & Plan Assessment and Plan 1) Left Foot/leg vascular insufficiency -INR too high. coumadin stopped. -5mg Vit K -will recheck INR -resume diet -NPO after MN -eval for surgerytuesday -consents on front of chart. need to be signed -INR 1.8. too high. need around 1.3. will give more Vit k today and recheck tomorrow Garry Malloy Jun 12, 2016 07:24
[2016-06-12] MEDS: FLUCONAZOLE 200 MG TAB PO SCH (08:58)
[2016-06-12] MEDS: TAMSULOSIN HCL 0.4 MG CAP PO SCH (08:58)
[2016-06-12] MEDS: PANTOPRAZOLE SOD 40 MG DELAYED RELEASE TAB PO SCH (08:58)
[2016-06-12] MEDS: COLLAGENASE OINT 30 GM TUBE TOP SCH (08:58)
[2016-06-12] MEDS: SODIUM CHLORIDE 0.9% FLUSH 5 ML FLUSH IV FLUSH SCH ×2 (08:58→23:09)
[2016-06-12 09:10] LABS: HEMATOCRIT 26.3 % (39.0-51.0); MEAN CELL VOLUME 89.4 FL (80.0-100.0); MEAN CORPUSCULAR HEMOGLOBIN 30.5 PG (27.0-34.0); MEAN CORPUSCULAR HGB CONC 34.1 % (32.0-36.0); PLATELET COUNT 181 TH/MM3 (150-450); RED BLOOD COUNT 2.94 MIL/MM3 (4.50-5.90); RED CELL DISTRIBUTION WIDTH 18.8 % (11.6-17.2); REVIEW FLAG FINAL
[2016-06-12 09:19] LABS: INTERNATIONAL NORMALIZED RATIO 1.3 RATIO; PROTHROMBIN TIME - PATIENT 14.9 SEC (9.8-11.6)
--- NOTE | 2016-06-12 13:41 | HHI.PR ---
Subjective Remarks Patient seen and evaluated in follow-up for her planned BKA. No new events. Discussed with German CHAUHAN. Patient comfortable Objective Vitals Vital Signs Date Time Temp Pulse Resp B/P Pulse Ox O2 Delivery O2 Flow Rate FiO2 06/12/16 10:35 2.00 06/12/16 04:00 98.4 78 22 129/59 100 06/12/16 00:35 99.0 81 24 114/65 100 06/12/16 00:30 98.7 86 22 116/64 99 06/12/16 00:15 99.0 81 24 114/65 100 06/11/16 20:51 98.9 88 22 126/58 96 06/11/16 20:30 Nasal Cannula 2.00 06/11/16 16:07 98.7 78 20 133/63 100 I/O 06/11/16 06/11/16 06/11/16 06/12/16 06/12/16 06/12/16 07:00 15:00 23:00 07:00 15:00 23:00 Intake Total 120 ml 480 ml 560 ml Output Total 400 ml 900 ml 200 ml Balance -280 ml -420 ml -200 ml 560 ml Intake Oral 120 ml 480 ml IV Total 560 ml Output Urine Total 400 ml 900 ml 200 ml # Bowel Movements 1 1 Result Diagram: 06/12/16 0823 06/12/16 0823 Objective Remarks GENERAL: This is a well-nourished, well-developed patient, frail male CARDIOVASCULAR: Regular rate and rhythm without murmurs, gallops, or rubs. RESPIRATORY: Clear to auscultation. Breath sounds equal bilaterally. No wheezes , rales, or rhonchi. GASTROINTESTINAL: Abdomen soft, non-tender, nondistended. Normal active bowel sounds MUSCULOSKELETAL: Extremities upper wnl, lower with partial toe amputations, R posterior lower leg has ulceration 6cm x 4cm with central necrotic tissue over exposed achilles tendon. There is currently no purulence noted. NEURO: Alert & Oriented x4 to person, place, time, situation. Moves all ext x4 A/P Problem List: (1) Severe sepsis ICD Code: A41.9 Status: Acute (2) Acute metabolic encephalopathy ICD Code: G93.41 Status: Resolved (3) Hyperkalemia ICD Code: E87.5 Status: Resolved (4) Dehydration ICD Code: E86.0 Status: Resolved (5) Acute renal failure ICD Code: N17.9 Status: Resolved (6) UTI (urinary tract infection) ICD Code: N39.0 Status: Acute (7) Leukocytosis ICD Code: D72.829 Status: Resolved (8) CAD (coronary artery disease) ICD Code: I25.10 Status: Chronic (9) PAD (peripheral artery disease) ICD Code: I73.9 Status: Chronic (10) Afib ICD Code: I48.91 Status: Chronic (11) CHF (congestive heart failure) ICD Code: I50.9 Status: Chronic (12) Diabetic foot ulcers ICD Code: E11.621 Status: Chronic Assessment and Plan 1. Resolved. Severe sepsis due to UTI, Yeast in Cultures, s/p diflucan 2. Coagulopathy, 1.3 INR (Held Coumadin for pre op) Dx afib 3. Type 2 diabetes, Sliding-scale insulin for diabetes, controlled 4. Anemia, Hg 9 s/p 1 unit PRBCs, hg better, (05/24, Podiatry Ulcers excisionally debrided of necrotic and fibrotic tissue down to tendon R leg with subsequent 2hrs of bleeding) 5. MERRY, improved with IVF and relief of retention. Follow, avoid nephrotoxin resolved; Patient with urinary retention on admission (800ml in catheter), ptn poorly ambulatory. Keep cabello in; out patient uro eval 6. Hypotension, resolved 7. Foot ulcers, cultures +MRSA, chronic PAD. Wound care daily. On vancomycin, for BKA in a.m. per orthopedic Problem Qualifiers (1) Acute renal failure: Qualified Code: N17.9 - Acute renal failure, unspecified acute renal failure type (2) UTI (urinary tract infection): (3) CAD (coronary artery disease): (4) Diabetic foot ulcers: Vandana Sena MD Jun 12, 2016 13:41
[2016-06-12] MEDS ORDERED: PHARMACY ORDERED LAB XX ONE (17:45)
[2016-06-12] MEDS: VANCOMYCIN INJ 1,750 MG in SODIUM CHLORID 0.9% 500 ML INJ 500 ML IV SCH (18:18)
[2016-06-12] MEDS: ACETAMINOPHEN/HYDROcodone 325 MG/5 MG TAB PO PRN (23:34)
[2016-06-13] VITALS (7 sets, daily range): BP systolic 103–149; BP diastolic 56–67; PULSE 70–102; RESP 16–22; TEMP 97.4–98.7; O2SAT 97–98
[2016-06-13] MEDS ORDERED: ACETAMINOPHEN 1000 MG/100 ML VIAL IV ONE (06:53)
[2016-06-13] MEDS ORDERED: SUGAMMADEX SODIUM 200 MG/2 ML VIAL IV PUSH ONE ×2 (06:53)
[2016-06-13] MEDS ORDERED: ceFAZolin INJ 1,000 MG VIAL ONE (07:04)
[2016-06-13] MEDS ORDERED: BUPIVACAINE/EPINEPHRINE 0.25% PF 30 ML VIAL ONE (07:04)
[2016-06-13] MEDS ORDERED: ceFAZolin 2 GM PREMIX 50 ML ONE (07:04)
[2016-06-13] MEDS ORDERED: VANCOMYCIN HCL 1000 MG VIAL ONE (07:04)
[2016-06-13] MEDS ORDERED: SODIUM CHLOR 0.9% 250 ML INJ 250 ML ONE (07:05)
[2016-06-13] MEDS ORDERED: GENTAMICIN SULFATE 80 MG/2 ML VIAL ONE (07:05)
[2016-06-13] MEDS ORDERED: KETAMINE HCL 500 MG/5 ML VIAL ONE (07:24)
[2016-06-13] MEDS: COLLAGENASE OINT 30 GM TUBE TOP SCH (09:00)
[2016-06-13] MEDS ORDERED: SODIUM CHLORIDE 0.9% FLUSH 5 ML FLUSH IVF PRN (09:15)
[2016-06-13] MEDS ORDERED: DO NOT ADM ANY ANTICOAGULANT DRUGS XX PRN (09:20)
--- NOTE | 2016-06-13 09:21 | PD.OP ---
cc: Rajiv Wilkerson MD Operative Report Date of Surgery: Jun 13, 2016 Preoperative Diagnosis: Left foot osteomyelitis with severe peripheral vascular disease and diabetes Postoperative Diagnosis: Procedure: Left above-knee amputation Anesthesia: Gen. Surgeon: Rajiv Wilkerson Project Coordinator(s): ANDREINA Edgar PA-C The surgical procedure was assisted by my physician commercial lines account assistant. My P.A. presence was necessary throughout this case for the manipulation and positioning of the surgical extremity. My P.A. was assisting me throughout the duration of this procedure. The skill set of a physician commercial lines account assistant was medically necessary to complete this procedure. During the surgical case the surgical attendant was working at the back table and the physician commercial lines account assistant was directly assisting me. Operation and Findings: Informed consent was obtained preoperatively and operative site was marked. Preoperatively I discussed with patient the possible below-knee fixation versus possible above-knee amputation. Patient was brought to the OR and placed on the OR table. IV sedation and GETA were administered by anesthesia and IV antibiotics were given. The Operative leg was prepped with alcohol, followed by Hibiclens and draped in the usual sterile fashion. Time out procedure was performed. The procedure began with a standard incision for below-knee amputation. A long posterior flap was maintained. The subcutaneous tissue was dissected with Bovie. The tibia and fibula were now exposed and the anterior compartment was incised. At this point, the muscle was visualized. The anterior and lateral compartment muscles appear to be very unhealthy with minimal to no blood flow. The muscle tissue was a pale white color and was borderline viable. Because of the appearance of the muscle tissue, I do not feel that patient had a high likelihood of healing his wound at the level of a below-knee amputation. Patient is a very high risk surgical candidate and would benefit from having 1 definitive surgery and not take the increased risk of wound complications by trying to salvage a below-knee amputation. Decision was made to proceed with above-knee of dictation at this time. A standard incision was made for an above-knee amputation. Subcutaneous tissues was dissected with Bovie. The muscle fascia and muscle were incised with Bovie. The femur was exposed. Soft tissue was retracted. Oscillating saw was used to cut the femur. At this point the tourniquet was inflated. The neurovascular bundles were identified. The femoral vessels were ligated with silk suture ties. Sciatic nerve was transected proximal to the cut of the femur. Nerve sheath was injected with .25% Marcaine with epinephrine. The remainder of the soft tissue was now incised with Bovie. Tourniquet was released. Hemostasis was confirmed. Wound was thoroughly irrigated. At this point attention was turned to wound closure. Fascial layer was closed with #1 Vicryl, subcutaneous tissues closed with 3-0 Vicryl, and skin was closed with parveen. Sterile dressings were applied. The patient was awakened and transferred to recovery in stable condition. Needle and sponge counts were correct. Rajiv Wilkerson MD Jun 13, 2016 09:21
[2016-06-13] MEDS ORDERED: HYDR-3366 PO (09:23)
[2016-06-13] MEDS ORDERED: *RESP: ALBUTEROL 2.5 MG/3 ML NEB (PRN) PERIprocedural Use ONLY NEB ONE (09:29)
[2016-06-13] MEDS ORDERED: MIDAZOLAM HCL 2 MG/2 ML VIAL ONE (09:30)
[2016-06-13] MEDS: TAMSULOSIN HCL 0.4 MG CAP PO SCH (11:27)
[2016-06-13] MEDS: GABAPENTIN 300 MG CAP PO SCH ×2 (11:27→18:09)
[2016-06-13] MEDS: PANTOPRAZOLE SOD 40 MG DELAYED RELEASE TAB PO SCH (11:27)
[2016-06-13] MEDS: ACETAMINOPHEN/HYDROcodone 325 MG/10 MG TAB PO PRN ×2 (11:28→18:10)
[2016-06-13] MEDS ORDERED: PHENYLEPH/NS 1000 MCG/10 ML SYR IV ONE (12:00)
[2016-06-13] MEDS ORDERED: ePHEDrine/NS 50 MG/5 ML SYR IV ONE (12:00)
[2016-06-13] MEDS ORDERED: PROPOFOL 200 MG/20 ML AMP IV ONE (12:00)
[2016-06-13] MEDS ORDERED: ONDANSETRON HCL 4 MG/2 ML VIAL IV PUSH ONE (12:00)
[2016-06-13] MEDS ORDERED: LACTATED RINGER'S 1000 ML INJ 1,000 ML IV ONE (12:00)
[2016-06-13] MEDS: INSULIN ASPART SUPPLEMENTAL SCALE SQ SCH ×3 (14:51→18:16)
[2016-06-13 17:15] LABS: INTERNATIONAL NORMALIZED RATIO 1.1 RATIO
[2016-06-13] MEDS ORDERED: VANCOMYCIN INJ 1,500 MG in SODIUM CHLORID 0.9% 500 ML INJ 500 ML IV SCH (18:00)
--- NOTE | 2016-06-13 20:14 | HHI.PR ---
Subjective Remarks patient seen this afternoon around 3 PM after left [id number] amputation. Patient reports pain is controlled. Denies any nausea or vomiting. Denies any chest pain or shortness of breath. Objective Vital Signs Date Time Temp Pulse Resp B/P Pulse Ox O2 Delivery O2 Flow Rate FiO2 06/13/16 16:29 97 Nasal Cannula 2.00 06/13/16 16:00 98.0 85 16 124/60 98 06/13/16 12:30 18 06/13/16 12:03 97 Nasal Cannula 3.00 06/13/16 10:15 98.0 75 16 103/56 98 06/13/16 10:00 97.6 76 16 105/57 95 Nasal Cannula 2 06/13/16 09:55 77 16 101/57 95 Nasal Cannula 2 06/13/16 09:45 84 16 94/55 95 Nasal Cannula 2 06/13/16 09:30 86 16 95/58 97 Nasal Cannula 2 06/13/16 09:20 98.0 93 16 102/64 99 Simple Mask 10 06/13/16 08:00 97 Nasal Cannula 2.00 06/13/16 06:00 Nasal Cannula 2.00 06/13/16 05:07 97.4 70 20 149/67 97 06/13/16 01:00 98.7 73 20 115/59 98 06/12/16 21:26 99.8 82 22 114/66 98 I/O 06/12/16 06/12/16 06/12/16 06/13/16 06/13/16 06/13/16 06:59 14:59 22:59 06:59 14:59 22:59 Intake Total 560 ml 480 ml 240 ml 0 ml 750 ml 0 ml Output Total 2100 ml 300 ml 700 ml 1060 ml 25 ml Balance 560 ml -1620 ml -60 ml -700 ml -310 ml -25 ml Intake Oral 480 ml 240 ml 0 ml 0 ml IV Total 560 ml 100 ml 0 ml Other 650 ml Output Urine Total 2100 ml 300 ml 700 ml 600 ml Drainage Total 10 ml 25 ml Estimated Blood Loss 250 ml Other 200 ml # Bowel Movements 0 0 1 0 Result Diagram: 06/12/1682206/12/16822 Objective Remarks GENERAL: patient lying in bed. Awake, alert and oriented x4. SKIN: Warm and dry. HEAD: Normocephalic. EYES: No scleral icterus. No injection or drainage. NECK: Supple, trachea midline. No JVD. CARDIOVASCULAR: Regular rate and rhythm without murmurs, gallops, or rubs. RESPIRATORY: Breath sounds equal bilaterally. No accessory muscle use. GASTROINTESTINAL: Abdomen soft, non-tender, nondistended. MUSCULOSKELETAL: left BKA dressed. BACK: Nontender without obvious deformity. No CVA tenderness. A/P Assessment and Plan //POSTOP left BKA on 06/13 for diabetic foot ulcer, OM. +MRSA - Post surgical management as per surgical service -And cremation is pressure ulcers -aWait return of bowel function - Antibiotics as per infectious disease. //Sepsis on admission. Resolved. - Initially thought to be secondary to Natalie UTI, however most likely secondary to osteomyelitis. Anemia. -Slow decline. Likely anemia of inflammation. Hemoglobin 7.4 on 06/11. -Status post transfusion. On 06/11. = Appropriate increase after transfusion 06/12. Continue monitor. Type 2 diabetes. Control. Continue sliding scale insulin. //Acute kidney injury on admission. Creatinine 4.2, BUN 100. Resolved. //Urinary retention on admission. With 800 mL in catheter on admission. Plan keep Chase in. Outpatient urology evaluation. //Atrial fibrillation. Held anticoagulation for BKA on tamsulosin. Restarting warfarin //Diabetic neuropathy. Chronic. Continue gabapentin. //Tobaccoism. Recommend cessation. //Hypertension. Systolic blood pressure in the 80s/90s at times. Overall stable. Continue to hold blood pressure medications. We'll need to consider restarting medications for history of CHF. Beta robson at least. //UTI. On admission with Natalie glabrata. Status post causal. //Prophylaxis. At coagulation as per surgical service. Discharge Planning expect to remain in hospital for a few more days. -SNF. [place] at discharge. Appreciate case management assistance. Dinesh Downs MD Jun 13, 2016 20:14
[2016-06-13] MEDS: MORPHINE SULFATE 4 MG/ML INJ IV PUSH PRN (21:12)
[2016-06-13] MEDS: SODIUM CHLORIDE 0.9% FLUSH 5 ML FLUSH IVF SCH (21:28)
[2016-06-14] VITALS (7 sets, daily range): BP systolic 102–136; BP diastolic 55–59; PULSE 91–108; RESP 16–22; TEMP 97.9–99.3; O2SAT 93–99
[2016-06-14] MEDS: INSULIN ASPART SUPPLEMENTAL SCALE SQ SCH ×4 (01:40→17:51)
[2016-06-14] MEDS: ACETAMINOPHEN/HYDROcodone 325 MG/10 MG TAB PO PRN ×3 (01:41→15:07)
[2016-06-14] MEDS ORDERED: PHARMACY ORDERED LAB XX ONE ×2 (05:45→17:45)
[2016-06-14] MEDS: VANCOMYCIN INJ 1,750 MG in SODIUM CHLORID 0.9% 500 ML INJ 500 ML IV SCH (05:53)
[2016-06-14] MEDS: MORPHINE SULFATE 4 MG/ML INJ IV PUSH PRN ×3 (05:56→17:52)
[2016-06-14 06:17] LABS: AUTOMATED NEUTROPHIL # 4.2 TH/MM3 (1.8-7.7); BASOPHIL # 0.1 TH/MM3 (0-0.2); BASOPHIL % 0.8 % (0.0-2.0); EOSINOPHIL # 0.2 TH/MM3 (0-0.4); EOSINOPHIL % 2.7 % (0.0-4.0); HEMATOCRIT 22.2 % (39.0-51.0); HEMO FLAGS DIFF FINAL; LYMPH % 18.2 % (9.0-44.0); LYMPHOCYTE # 1.2 TH/MM3 (1.0-4.8); MEAN CELL VOLUME 89.8 FL (80.0-100.0); MEAN CORPUSCULAR HEMOGLOBIN 31.2 PG (27.0-34.0); MEAN CORPUSCULAR HGB CONC 34.7 % (32.0-36.0); MONO % 12.2 % (0.0-8.0); NEUT % 66.1 % (16.0-70.0); PLATELET COUNT 191 TH/MM3 (150-450); RED BLOOD COUNT 2.47 MIL/MM3 (4.50-5.90); RED CELL DISTRIBUTION WIDTH 18.2 % (11.6-17.2); WHITE BLOOD COUNT 6.4 TH/MM3 (4.0-11.0)
[2016-06-14 06:50] LABS: PROTHROMBIN TIME - PATIENT 11.4 SEC (9.8-11.6)
[2016-06-14 06:51] LABS: BICARBONATE 32.2 MEQ/L (21.0-32.0); POTASSIUM 4.3 MEQ/L (3.5-5.1)
--- NOTE | 2016-06-14 07:07 | PD.ORT.PN ---
Subjective Subjective Remarks Postop day #1 status post left above-knee amputation Pain controlled Patient resting and comfortable Objective Vitals Vital Signs Date Time Temp Pulse Resp B/P Pulse Ox O2 Delivery O2 Flow Rate FiO2 06/14/16 04:00 98.6 101 22 136/59 98 06/14/16 00:00 98.7 106 22 135/58 99 06/13/16 20:00 Nasal Cannula 2.00 06/13/16 20:00 98.0 102 22 116/65 98 06/13/16 16:29 97 Nasal Cannula 2.00 06/13/16 16:00 98.0 85 16 124/60 98 06/13/16 12:30 18 06/13/16 12:03 97 Nasal Cannula 3.00 06/13/16 10:15 98.0 75 16 103/56 98 06/13/16 10:00 97.6 76 16 105/57 95 Nasal Cannula 2 06/13/16 09:55 77 16 101/57 95 Nasal Cannula 2 06/13/16 09:45 84 16 94/55 95 Nasal Cannula 2 06/13/16 09:30 86 16 95/58 97 Nasal Cannula 2 06/13/16 09:20 98.0 93 16 102/64 99 Simple Mask 10 06/13/16 08:00 97 Nasal Cannula 2.00 I/O 06/13/16 06/13/16 06/13/16 06/14/16 06/14/16 06/14/16 06:59 14:59 22:59 06:59 14:59 22:59 Intake Total 0 ml 750 ml 0 ml 500 ml Output Total 700 ml 1060 ml 625 ml 320 ml Balance -700 ml -310 ml -625 ml 180 ml Intake Oral 0 ml 0 ml IV Total 100 ml 0 ml 500 ml Other 650 ml Output Urine Total 700 ml 600 ml 600 ml 300 ml Drainage Total 10 ml 25 ml 20 ml Estimated Blood Loss 250 ml Other 200 ml # Bowel Movements 1 0 0 0 Result Diagram: 06/14/1651706/14/16517 Other Results Laboratory Tests Test 06/13/16 06/14/16 16:28 05:18 Prothrombin Time 12.0 SEC 11.4 SEC (9.8-11.6) (9.8-11.6) Prothromb Time International 1.1 RATIO 1.0 RATIO Ratio Objective Remarks LLE: Clean dry dressing intact, drain in place Assessment & Plan Assessment and Plan 1) Left Foot/leg vascular insufficiency with left foot osteomyelitis status post left above-knee rotation Continue drain until postop day #3 Continue medical care Start daily dressing changes on postop day #3 Rajiv Ferrer MD Jun 14, 2016 07:07
[2016-06-14] MEDS: PANTOPRAZOLE SOD 40 MG DELAYED RELEASE TAB PO SCH (08:57)
[2016-06-14] MEDS: TAMSULOSIN HCL 0.4 MG CAP PO SCH (08:57)
[2016-06-14] MEDS: SODIUM CHLORIDE 0.9% FLUSH 5 ML FLUSH IVF SCH ×2 (08:57→22:16)
[2016-06-14] MEDS: GABAPENTIN 300 MG CAP PO SCH ×3 (08:57→17:51)
[2016-06-14] MEDS: COLLAGENASE OINT 30 GM TUBE TOP SCH (09:21)
[2016-06-14] MEDS: WARFARIN SOD 3 MG TAB PO SCH (15:07)
--- NOTE | 2016-06-14 23:08 | HHI.PR ---
Subjective Remarks pt seen around noon. sleeping, wakes for exam. pain imporved. no cp or sob. Objective Vital Signs Date Time Temp Pulse Resp B/P Pulse Ox O2 Delivery O2 Flow Rate FiO2 06/14/16 20:37 97.9 108 18 117/57 93 06/14/16 16:00 Nasal Cannula 2.00 06/14/16 16:00 99.3 94 16 116/56 96 06/14/16 12:00 98.5 91 16 102/57 96 06/14/16 12:00 Nasal Cannula 2.00 06/14/16 10:17 96 Nasal Cannula 3.00 06/14/16 09:00 Nasal Cannula 2.00 06/14/16 08:00 98.0 93 16 108/55 98 06/14/16 04:00 98.6 101 22 136/59 98 06/14/16 00:00 98.7 106 22 135/58 99 I/O 06/13/16 06/13/16 06/13/16 06/14/16 06/14/16 06/14/16 07:00 15:00 23:00 07:00 15:00 23:00 Intake Total 0 ml 750 ml 0 ml 500 ml 730 ml 100 ml Output Total 700 ml 1060 ml 625 ml 320 ml 455 ml 100 ml Balance -700 ml -310 ml -625 ml 180 ml 275 ml 0 ml Intake Oral 0 ml 0 ml 480 ml 100 ml IV Total 100 ml 0 ml 500 ml 250 ml Other 650 ml Output Urine Total 700 ml 600 ml 600 ml 300 ml 450 ml 100 ml Drainage Total 10 ml 25 ml 20 ml 5 ml Estimated Blood Loss 250 ml Other 200 ml # Bowel Movements 1 0 0 0 1 0 Result Diagram: 06/14/1618 06/14/1618 Objective Remarks GENERAL: patient lying in bed. sleeping, wakes for exam. Awake, alert and oriented x4. SKIN: Warm and dry. HEAD: Normocephalic. EYES: No scleral icterus. No injection or drainage. NECK: Supple, trachea midline. No JVD. CARDIOVASCULAR: Regular rate and rhythm without murmurs, gallops, or rubs. RESPIRATORY: Breath sounds equal bilaterally. No accessory muscle use. GASTROINTESTINAL: Abdomen soft, non-tender, nondistended. MUSCULOSKELETAL: left BKA dressed. BACK: Nontender without obvious deformity. No CVA tenderness. A/P Assessment and Plan //POSTOP left BKA on 06/13 for diabetic foot ulcer, OM. +MRSA - Post surgical management as per surgical service -And cremation is pressure ulcers -aWait return of bowel function - Antibiotics as per infectious disease. //Sepsis on admission. Resolved. - Initially thought to be secondary to Natalie UTI, however most likely secondary to osteomyelitis. Anemia. -Slow decline. Likely anemia of inflammation. Hemoglobin 7.4 on 06/11. -Status post transfusion. On 06/11. = Appropriate increase after transfusion 06/12. Continue monitor. -Dropped to 7.7 after surgery. No signs of acute bleeding. Continue to monitor. Type 2 diabetes. Control. Continue sliding scale insulin. //Acute kidney injury on admission. Creatinine 4.2, BUN 100. Resolved. //Urinary retention on admission. With 800 mL in catheter on admission. Plan keep Chase in. Outpatient urology evaluation. //Atrial fibrillation. Held anticoagulation for BKA on tamsulosin. Restarting warfarin //Diabetic neuropathy. Chronic. Continue gabapentin. //Tobaccoism. Recommend cessation. //Hypertension. Systolic blood pressure in the 80s/90s at times. Overall stable. Continue to hold blood pressure medications. We'll need to consider restarting medications for history of CHF. Beta robson at least. //UTI. On admission with Natalie glabrata. Status post causal. //Prophylaxis. At coagulation as per surgical service Discharge Planning expect to remain in hospital for a few more days. -SNF. [place] at discharge. Appreciate case management assistance. Dinesh Downs MD Jun 14, 2016 23:08
[2016-06-15] VITALS (7 sets, daily range): BP systolic 92–143; BP diastolic 48–82; PULSE 96–109; RESP 18–22; TEMP 97.8–101; O2SAT 94–98
[2016-06-15] MEDS ORDERED: ACETAMINOPHEN 1000 MG/100 ML VIAL IV ONE (01:15)
[2016-06-15 03:38] LABS: AUTOMATED NEUTROPHIL # 4.6 TH/MM3 (1.8-7.7); BASOPHIL # 0.1 TH/MM3 (0-0.2); BASOPHIL % 1.4 % (0.0-2.0); EOSINOPHIL # 0.2 TH/MM3 (0-0.4); EOSINOPHIL % 3.6 % (0.0-4.0); HEMATOCRIT 22.4 % (39.0-51.0); HEMO FLAGS DIFF FINAL; LYMPH % 15.1 % (9.0-44.0); MEAN CORPUSCULAR HEMOGLOBIN 30.4 PG (27.0-34.0); MONO % 12.8 % (0.0-8.0); NEUT % 67.1 % (16.0-70.0); PLATELET COUNT 220 TH/MM3 (150-450); RED BLOOD COUNT 2.43 MIL/MM3 (4.50-5.90); RED CELL DISTRIBUTION WIDTH 18.5 % (11.6-17.2); WHITE BLOOD COUNT 6.8 TH/MM3 (4.0-11.0)
[2016-06-15 03:44] LABS: BICARBONATE 30.2 MEQ/L (21.0-32.0)
[2016-06-15 03:47] LABS: PROTHROMBIN TIME - PATIENT 11.4 SEC (9.8-11.6)
[2016-06-15] MEDS: INSULIN ASPART SUPPLEMENTAL SCALE SQ SCH ×4 (05:16→18:00)
--- NOTE | 2016-06-15 07:00 | PD.ORT.PN ---
Subjective Subjective Remarks Pain controlled no new complaints Objective Vitals Vital Signs Date Time Temp Pulse Resp B/P Pulse Ox O2 Delivery O2 Flow Rate FiO2 06/15/16 05:00 99.8 96 18 112/57 97 06/15/16 00:00 101.0 102 18 103/53 98 06/14/16 20:37 97.9 108 18 117/57 93 06/14/16 20:00 Nasal Cannula 2.00 06/14/16 16:00 Nasal Cannula 2.00 06/14/16 16:00 99.3 94 16 116/56 96 06/14/16 12:00 98.5 91 16 102/57 96 06/14/16 12:00 Nasal Cannula 2.00 06/14/16 10:17 96 Nasal Cannula 3.00 06/14/16 09:00 Nasal Cannula 2.00 06/14/16 08:00 98.0 93 16 108/55 98 I/O 06/14/16 06/14/16 06/14/16 06/15/16 06/15/16 06/15/16 07:00 15:00 23:00 07:00 15:00 23:00 Intake Total 500 ml 730 ml 100 ml 0 ml Output Total 320 ml 455 ml 100 ml 125 ml Balance 180 ml 275 ml 0 ml -125 ml Intake Oral 480 ml 100 ml 0 ml IV Total 500 ml 250 ml Output Urine Total 300 ml 450 ml 100 ml 125 ml Drainage Total 20 ml 5 ml # Bowel Movements 0 1 0 0 Result Diagram: 06/15/16 0252 06/15/16 0252 Other Results Laboratory Tests Test 06/15/16 02:52 Prothrombin Time 11.4 SEC (9.8-11.6) Prothromb Time International 1.0 RATIO Ratio Objective Remarks Left lower extremity: Clean dry dressings intact with drain in place. Assessment & Plan Assessment and Plan 1) Left Foot/leg vascular insufficiency with left foot osteomyelitis status post left above-knee amputation POD#2 Maintain drain until postop day #3 Continue medical care We will take down dressings and will begin daily dressing changes on postop day #3 BONIFACIO BALBUENA PA-C Jun 15, 2016 06:59
[2016-06-15] MEDS: COLLAGENASE OINT 30 GM TUBE TOP SCH (09:01)
[2016-06-15] MEDS: TAMSULOSIN HCL 0.4 MG CAP PO SCH (09:02)
[2016-06-15] MEDS: SODIUM CHLORIDE 0.9% FLUSH 5 ML FLUSH IVF SCH ×2 (09:02→21:00)
[2016-06-15] MEDS: GABAPENTIN 300 MG CAP PO SCH ×3 (09:02→18:09)
[2016-06-15] MEDS: PANTOPRAZOLE SOD 40 MG DELAYED RELEASE TAB PO SCH (09:02)
--- NOTE | 2016-06-15 12:08 | HHI.PR ---
Subjective Remarks Nursing informed me now that she's noticed he has had right-sided weakness and have minor problems feeding himself now. I came to his bedside immediately for further evaluation. At this time the patient reports no pain and no headaches however does also state that he does have right-sided weakness. He cannot tell me when but he states that he didn't feel right since last night. He denies any numbness. He denies any abdominal pain nor any chest pain. He denies any palpitations. He has not had any difficulty with swallowing. Objective Vitals Vital Signs Date Time Temp Pulse Resp B/P Pulse Ox O2 Delivery O2 Flow Rate FiO2 06/15/16 08:00 99.8 109 22 143/82 98 06/15/16 05:00 99.8 96 18 112/57 97 06/15/16 00:00 101.0 102 18 103/53 98 06/14/16 20:37 97.9 108 18 117/57 93 06/14/16 20:00 Nasal Cannula 2.00 06/14/16 16:00 Nasal Cannula 2.00 06/14/16 16:00 99.3 94 16 116/56 96 06/14/16 12:00 98.5 91 16 102/57 96 06/14/16 12:00 Nasal Cannula 2.00 I/O 06/14/16 06/14/16 06/14/16 06/15/16 06/15/16 06/15/16 07:00 15:00 23:00 07:00 15:00 23:00 Intake Total 500 ml 730 ml 100 ml 0 ml Output Total 320 ml 455 ml 100 ml 125 ml Balance 180 ml 275 ml 0 ml -125 ml Intake Oral 480 ml 100 ml 0 ml IV Total 500 ml 250 ml Output Urine Total 300 ml 450 ml 100 ml 125 ml Drainage Total 20 ml 5 ml # Bowel Movements 0 1 0 0 Result Diagram: 06/15/162 06/15/16251 Other Results Item Value Date Time Prothromb Time International Ratio 1.0 RATIO 06/15/16251 Prothrombin Time 11.4 SEC 06/15/16251 Objective Remarks GENERAL: This is a well-nourished, well-developed patient, in no apparent distress. CARDIOVASCULAR: Irregular Regular rate and rhythm RESPIRATORY: Clear to auscultation. Breath sounds equal bilaterally. No wheezes , rales, or rhonchi. GASTROINTESTINAL: Abdomen soft, non-tender, nondistended. Normal active bowel sounds MUSCULOSKELETAL: Left above the knee amputation with bandage, NEURO: Alert & Oriented x2 to person, place. 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 Left upper extremity [employer] 4.5 out of 5, patient was unable to fully lift independently past 90 of bilateral upper extremity, CN II through 12 intact. Sensation seems to be grossly intact, normal speech although slow at times. A/P Problem List: (1) Severe sepsis ICD Code: A41.9 Status: Acute (2) Acute metabolic encephalopathy ICD Code: G93.41 Status: Resolved (3) Hyperkalemia ICD Code: E87.5 Status: Resolved (4) Dehydration ICD Code: E86.0 Status: Resolved (5) Acute renal failure ICD Code: N17.9 Status: Resolved (6) UTI (urinary tract infection) ICD Code: N39.0 Status: Acute (7) Leukocytosis ICD Code: D72.829 Status: Resolved (8) CAD (coronary artery disease) ICD Code: I25.10 Status: Chronic (9) PAD (peripheral artery disease) ICD Code: I73.9 Status: Chronic (10) Afib ICD Code: I48.91 Status: Chronic (11) CHF (congestive heart failure) ICD Code: I50.9 Status: Chronic (12) Diabetic foot ulcers ICD Code: E11.621 Status: Chronic Assessment and Plan Neurological changes of right sided weakness. At this time there was an unknown duration due to possible changes in mental status and having tremors last night documented it is unclear the timeframe of the right sided weakness. This time patient is extremely high risk for stroke and neurological event due to his atrial fibrillation and also initially off of anticoagulation for the surgery and now subtherapeutic on CoumadinMRI the brain and stroke workup to be initiated. Obtain EEG to also rule out seizure, neurology consultation to replace. POSTOP day #2 left AKA on 06/13 for diabetic foot ulcer, OM. +MRSA - Post surgical management post operative pain rehabilitation as per surgical service - Antibiotics vancomycin as per infectious disease. Currently on vancomycin but dosing will need to be adjusted due to acute kidney injury. Acute kidney injury overnightrule out underlying cause check urinalysis and monitor closely. Adjust vancomycin dosing start IV fluid hydration. Previous Sepsis on admission. Resolved. - Initially thought to be secondary to Natalie UTI, however most likely secondary to osteomyelitis. Anemia. Currently asymptomatic -Slow decline. Likely anemia of inflammation. Hemoglobin 7.4 today -Status post transfusion on 06/11. We'll monitor closely and may need another repeat transfusion Type 2 diabetes. Overall Control. Continue sliding scale insulin. Urinary retention on admission. With 800 mL in catheter on admission. Plan keep Chase in. Outpatient urology evaluation. Repeat urinalysis due to fever overnight to rule out UTI, currently on Flomax Atrial fibrillation. Currently heart rate is controlled Held anticoagulation for BKA. Restarting warfarin, today's INR is 1.0 Diabetic neuropathy. Chronic. Continue gabapentin. Tobaccoism. Recommend cessation. Hypertension. Systolic blood pressure 140s, at this time will hold antihypertensives until stroke is ruled out. UTI. On admission with Natalie glabrata. Status post diflucan. DVT Prophylaxis. Coumadin restarted. Problem Qualifiers (1) Acute renal failure: Qualified Code: N17.9 - Acute renal failure, unspecified acute renal failure type (2) UTI (urinary tract infection): (3) CAD (coronary artery disease): (4) Diabetic foot ulcers: Eloisa Choi MD Jun 15, 2016 12:08
[2016-06-15] MEDS ORDERED: ASPIRIN 81 MG CHEW TAB PO STA (12:16)
--- NOTE | 2016-06-15 12:29 | RADRPT ---
EXAM DATE/TIME: 06/15/2016 12:12 [facility] COMPARISON: CHEST SINGLE AP, May 25, 2016, 5:03. INDICATIONS : Fever. MEDICAL HISTORY : Chronic obstructive pulmonary disease. Congestive heart failure. Hypertension. diabetes SURGICAL HISTORY : None. ENCOUNTER: Initial ACUITY: 1 month PAIN SCORE: Non-responsive. LOCATION: Bilateral chest FINDINGS: There is bilateral basilar alveolar opacity and bilateral effusions. Cardiomediastinal contours are g rossly stable. CONCLUSION: Bilateral mainly basilar infiltrates and bilateral effusions Bret Vidal MD on June 15, 2016 at 12:26 Board Certified Radiologist. This report was verified electronically.
[2016-06-15] MEDS ORDERED: SODIUM CHLOR 0.9% 1000 ML INJ 1,000 ML IV ONE (12:30)
--- NOTE | 2016-06-15 13:31 | RADRPT ---
EXAM DATE/TIME: 06/15/2016 12:49 [facility] COMPARISON: CT BRAIN W/O CONTRAST, May 24, 2016, 12:55. INDICATIONS : CVA. Bilateral hand numbness. MEDICAL HISTORY : Hypertension. Diabetes mellitus type 2. SURGICAL HISTORY : Cholecystectomy. Tonsillectomy. Left AKA. ENCOUNTER: Subsequent ACUITY: 2 day PAIN SCORE: 0/10 LOCATION: head. TECHNIQUE: Multiplanar, multisequence MRI of the brain was performed without contrast. FINDINGS: CEREBRUM: There is cerebral atrophy. The ventricles are normal for age. No evidence of midline shift, mass les ion, hemorrhage or acute infarction. No extraaxial fluid collections are seen. The pituitary gland and suprasellar cistern are normal in configuration. WHITE MATTER: Prominent area of high focal flair signal abnormalities are seen in the white matter, greatest within the periventricular white matter, with similar changes in the brainstem. POSTERIOR FOSSA: The cerebellum is intact. The 4th ventricle is midline. The cerebellopontine angle is unremarkable. The cerebellar tonsils are normal in position. DIFFUSION IMAGING: No focal areas of restricted diffusion are seen. No evidence of acute infarction. EXTRACRANIAL: The visualized portions of the orbits and paranasal sinuses are unremarkable. CONCLUSION: 1. Cerebral atrophy and extensive chronic ischemic small vessel vasculopathy. 2. No acute infarction. Subhash Arteaga MD on June 15, 2016 at 13:28 Board Certified Radiologist. This report was verified electronically.
[2016-06-15 14:19] LABS: AUTOMATED NEUTROPHIL # 6.6 TH/MM3 (1.8-7.7); BASOPHIL # 0.1 TH/MM3 (0-0.2); BASOPHIL % 0.9 % (0.0-2.0); EOSINOPHIL # 0.1 TH/MM3 (0-0.4); EOSINOPHIL % 1.6 % (0.0-4.0); HEMATOCRIT 22.5 % (39.0-51.0); HEMO FLAGS DIFF FINAL; LYMPH % 10.4 % (9.0-44.0); LYMPHOCYTE # 0.9 TH/MM3 (1.0-4.8); MEAN CELL VOLUME 92.1 FL (80.0-100.0); MEAN CORPUSCULAR HEMOGLOBIN 31.3 PG (27.0-34.0); MONO % 9.4 % (0.0-8.0); NEUT % 77.7 % (16.0-70.0); PLATELET COUNT 199 TH/MM3 (150-450); RED BLOOD COUNT 2.44 MIL/MM3 (4.50-5.90); RED CELL DISTRIBUTION WIDTH 18.4 % (11.6-17.2); WHITE BLOOD COUNT 8.5 TH/MM3 (4.0-11.0)
[2016-06-15 14:35] LABS: APTT (PATIENT) 31.4 SEC (24.3-30.1); PROTHROMBIN TIME - PATIENT 11.2 SEC (9.8-11.6)
[2016-06-15] MEDS: SODIUM CHLOR 0.9% 1000 ML INJ 1,000 ML IV SCH (15:14)
--- NOTE | 2016-06-15 15:47 | MG ---
cc: JOHNNY PRESCOTT M.D. Lab No: 17-20 Date: 06/15/16 Age: Sex: M Race: TECHNIQUE: 17 channel EEG. DESCRIPTION: The background rhythm is a symmetrical alpha rhythm. Frequency of 8-10 Hz. Amplitude is 20-40 microvolts. There is the expected anterior decremental response. During drowsiness, there is slowing in the theta range. There are no lateralizing features seen. No epileptiform features are identified. During the tracing, it was noted that bilateral arms were twitching but there are no corresponding epileptiform discharges. Photic stimulation is normal with a normal driving response. Hyperventilation was omitted. INTERPRETATION: Normal EEG. MD SHANTAL Culp/[facility] /3:04 PM /3:42 PM
[2016-06-15] MEDS ORDERED: WARFARIN SOD 2 MG TAB PO SCH (16:00)
--- NOTE | 2016-06-15 17:52 | MB ---
cc: LAURA REES M.D. DATE OF CONSULTATION: 06/15/2016. REASON FOR CONSULTATION: Neurological consultation. HISTORY OF PRESENT ILLNESS: He is a 65-year-old seen because of some apparent left-sided weakness. He has been in the hospital since 05/24/2016 when he came in with septicemia, encephalopathy, and renal failure. He is diabetic. History of depression and hypertension. History of atrial fibrillation. Apparently a resident from a rehab facility. He is vague in describing his symptomatology but he was observed to have some possible lateralized weakness. This was discussed as being on the right side but the patient tells me his symptoms were on the left arm. He started moving the left upper extremity and thought that it was better at the time of my exam as he could move it quite well. He denies prior history of a stroke. No history of seizures. He is now postop from a left above-knee amputation. His orientation is fair. He knows he has been in the hospital for three weeks or so. He provides some history with a lot of vagueness but he is aware of the major events. He has full ocular movements. Visual steven are probably full. No obvious facial weakness. Speech was clear. 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 Muscle stretch reflexes were absent throughout. Right lower extremity shows some appropriate resistance with mild weakness diffusely. He has difficulty lifting the left knee but unclear if this is all from his postop above-knee amputation or if it is related to the new complaint of left-sided weakness. ASSESSMENT: 1. Mostly resolved neurologic symptomatology. To me, the patient complained of left-sided weakness but the chart indicates some right-sided problems. 2. History of atrial fibrillation and he is being re-started on warfarin. 3. Status post left above-knee amputation. 4. Diabetes. 5. Hypertensive disease. 6. Septicemia on admission. RECOMMENDATIONS/PLAN: 1. I will request a carotid ultrasound. 2. An EEG has been requested and I agree. 3. Rehab. 4. He is already on a statin. Thank you for asking us to assist in his care. MD NICKY Phelps/[facility] /3:11 PM /4:57 PM
[2016-06-15] MEDS: WARFARIN SOD 3 MG TAB PO SCH (18:09)
[2016-06-15] MEDS: VANCOMYCIN INJ 1,750 MG in SODIUM CHLORID 0.9% 500 ML INJ 500 ML IV SCH (18:10)
[2016-06-15] MEDS: ATORVASTATIN 20 MG TAB PO SCH (21:48)
[2016-06-15 21:57] LABS: HEMOGLOBIN A1a 3.1 %; HEMOGLOBIN A1b 0.8 %; HEMOGLOBIN Ao 84.5 %; HEMOGLOBIN F 0.9 %; HEMOGLOBIN LA1C 1.9 %; HEMOGLOBIN P3 3.6 %
--- NOTE | 2016-06-15 22:30 | RADRPT ---
EXAM DATE/TIME: 06/15/2016 18:56 [facility] COMPARISON: US CAROTID ARTERIES, January 23, 2016, 18:15. INDICATIONS : CVA. MEDICAL HISTORY : [place]. COPD. Dyspnea. Hypertension. CHF. Afib. Diabetic. MRSA. SURGICAL HISTORY : Tonsillectomy. Cholecystectomy. Left pinky toe amputated. ENCOUNTER: Initial ACUITY: 1 day PAIN SCORE: 0/10 LOCATION: Bilateral neck PEAK SYSTOLIC VELOCITIES (cm/sec): ICA/CCA RATIO: Right: 1.1 Left: 1.6 ICA: Right: 80 Left: 139 CCA: Right: 70 Left: 88 ECA: Right: 63 Left: 79 VERTEBRAL: Neither vert well visualized. Elevated flow velocities and ICA/CCA ratios have been found to correlate with increased degrees of vessel stenosis, calculated as percentage of diameter relative to a normal segment of distal ICA/CCA FINDINGS: RIGHT CAROTID: Moderate plaque seen at the bulb and proximal internal carotid artery. LEFT CAROTID: Mild plaque seen of the bulb and proximal internal carotid artery. VERTEBRAL ARTERIES: Not well-seen. MISCELLANEOUS: None. CONCLUSION: 1. Bilateral carotid bifurcation atherosclerosis, moderate on the right and mild on the left. No hemo dynamically significant narrowing on either side. 2. Limited study and the vertebral arteries are not well-visualized today. They had antegrade flow wi thin them on the prior ultrasound. Bret Truong MD on June 15, 2016 at 22:26 Board Certified Radiologist. This report was verified electronically.
[2016-06-16] VITALS (14 sets, daily range): BP systolic 93–118; BP diastolic 51–66; PULSE 83–96; RESP 18–20; TEMP 97.6–100.2; O2SAT 93–100
[2016-06-16] MEDS: SODIUM CHLOR 0.9% 1000 ML INJ 1,000 ML IV SCH (02:40)
[2016-06-16 05:29] LABS: BACTERIA, URINE FEW /hpf; BLOOD, URINE SMALL (NEG); COMMENT (UR) CULTURE INDICATED; CULTURE IF INDICATED CULTURE INDICATED; GLUCOSE,URINE NEG (NEG); KETONE, URINE 10 mg/dL (NEG); MUCUS URINE FEW /lpf (OCC); NITRITE,URINE NEG (NEG); URINE COLOR YELLOW (YELLW/STRAW)
[2016-06-16] MEDS: INSULIN ASPART SUPPLEMENTAL SCALE SQ SCH ×4 (06:00→18:00)
--- NOTE | 2016-06-16 06:52 | PD.ORT.PN ---
Subjective Subjective Remarks Pain controlled no new complaints Objective Vitals Vital Signs Date Time Temp Pulse Resp B/P Pulse Ox O2 Delivery O2 Flow Rate FiO2 06/16/16 04:00 99.5 91 20 93/53 93 06/16/16 00:00 100.2 92 20 96/51 97 06/15/16 20:54 98.1 98 20 101/48 97 06/15/16 20:00 Nasal Cannula 2.00 06/15/16 16:00 97.8 98 22 113/60 94 06/15/16 12:00 100.6 106 22 92/57 97 06/15/16 11:19 98 Nasal Cannula 3.00 06/15/16 08:10 Nasal Cannula 2.00 06/15/16 08:00 99.8 109 22 143/82 98 I/O 06/15/16 06/15/16 06/15/16 06/16/16 06/16/16 06/16/16 07:00 15:00 23:00 07:00 15:00 23:00 Intake Total 0 ml 480 ml 100 ml 220 ml Output Total 125 ml 525 ml 300 ml 525 ml Balance -125 ml -45 ml -200 ml -305 ml Intake Oral 0 ml 480 ml 100 ml 220 ml Output Urine Total 125 ml 525 ml 300 ml 525 ml # Bowel Movements 0 0 0 0 Result Diagram: 06/15/16 1224 06/15/16 0252 Other Results Laboratory Tests Test 06/15/16 12:24 Prothrombin Time 11.2 SEC (9.8-11.6) Prothromb Time International 1.0 RATIO Ratio Imaging Last 24 hours Impressions Brain MRI 06/15/16 1143 Signed Impressions: Service Date/Time: June 12:49 - CONCLUSION: 1. Cerebral atrophy and extensive chronic ischemic small vessel vasculopathy. 2. No acute infarction. Subhash Arteaga MD Objective Remarks Left lower extremity: Clean dry dressings intact with drain in place. Dressing taken down and drain removed. Incision healing well with no signs of necrosis erythema or drainage Redressed with Xeroform 4 x 4's ABDs and Davis wrap. Assessment & Plan Assessment and Plan 1) Left Foot/leg vascular insufficiency with left foot osteomyelitis status post left above-knee amputation POD#3 Daily dressing changes with Xeroform, 4 x 4's, ABDs, Davis wrap and stockinette Continue medical care Rehabilitation options- orthopedically cleared for discharge Follow-up with Dr. Wilkerson or NORIS in 2 weeks BONIFACIO BALBUENA PA-C Jun 16, 2016 06:52
[2016-06-16 06:53] LABS: PROTHROMBIN TIME - PATIENT 11.3 SEC (9.8-11.6)
[2016-06-16 07:03] LABS: BICARBONATE 29.2 MEQ/L (21.0-32.0); POTASSIUM 4.8 MEQ/L (3.5-5.1)
[2016-06-16 07:05] LABS: HDL CHOLESTEROL 32.1 MG/DL (40.0-60.0)
[2016-06-16 07:07] LABS: AUTOMATED NEUTROPHIL # 4.6 TH/MM3 (1.8-7.7); BASOPHIL # 0.1 TH/MM3 (0-0.2); EOSINOPHIL # 0.1 TH/MM3 (0-0.4); EOSINOPHIL % 1.8 % (0.0-4.0); LYMPH % 16.4 % (9.0-44.0); LYMPHOCYTE # 1.1 TH/MM3 (1.0-4.8); MEAN CELL VOLUME 92.6 FL (80.0-100.0); MEAN CORPUSCULAR HEMOGLOBIN 31.3 PG (27.0-34.0); MEAN CORPUSCULAR HGB CONC 33.8 % (32.0-36.0); MONO % 11.9 % (0.0-8.0); NEUT % 68.9 % (16.0-70.0); PLATELET COUNT 209 TH/MM3 (150-450); RED BLOOD COUNT 2.14 MIL/MM3 (4.50-5.90); RED CELL DISTRIBUTION WIDTH 18.2 % (11.6-17.2); WHITE BLOOD COUNT 6.6 TH/MM3 (4.0-11.0)
[2016-06-16 08:10] LABS: HEMO FLAGS DIFF FINAL
[2016-06-16 08:13] LABS: HEMATOCRIT 19.8 % (39.0-51.0)
[2016-06-16] MEDS: GABAPENTIN 300 MG CAP PO SCH ×3 (08:50→18:28)
[2016-06-16] MEDS: TAMSULOSIN HCL 0.4 MG CAP PO SCH (08:51)
[2016-06-16] MEDS: PANTOPRAZOLE SOD 40 MG DELAYED RELEASE TAB PO SCH (08:51)
[2016-06-16] MEDS: ACETAMINOPHEN/HYDROcodone 325 MG/10 MG TAB PO PRN ×2 (08:52→21:43)
[2016-06-16] MEDS: COLLAGENASE OINT 30 GM TUBE TOP SCH (08:53)
[2016-06-16] MEDS: SODIUM CHLORIDE 0.9% FLUSH 5 ML FLUSH IVF SCH ×2 (08:53→21:44)
[2016-06-16] MEDS ORDERED: SODIUM CHLOR 0.9% 250 ML INJ 250 ML IV ONE (09:30)
[2016-06-16] MEDS ORDERED: cefTRIAXone INJ 1,000 MG in SODIUM CHLORIDE 0.9% INJ 100 ML IV SCH (10:00)
--- NOTE | 2016-06-16 11:57 | PD.CONS ---
[facility] Service Rehabilitation Medicine Consult Requested By Eloisa Choi M.D. Reason for Consult Comprehensive rehabilitation evaluation. Primary Care Physician No Primary Care Physician History of Present Illness James Milian is a 66-year-old [id number] male admitted [facility] 05/24/16 with sepsis. He was noted to have urinary tract infection and infected foot ulcers. He was found to have osteomyelitis of the left foot. On 06/13/16 he underwent left above-knee amputation. On 06/15/16 he was noted to have left-sided weakness. Brain MRI showed no acute ischemic infarct. Patient is currently on IV antibiotics including vancomycin and Rocephin. Indwelling Chase catheter is in place. Hydration is being adjusted. Hemoglobin and hematocrit noted to be 6.7/19.8 and medical service is following. Review of Systems Constitutional: COMPLAINS OF: Fatigue Eyes: DENIES: Diplopia Ears, nose, mouth, throat: DENIES: Throat pain Respiratory: DENIES: Shortness of breath Cardiovascular: DENIES: Chest pain Gastrointestinal: DENIES: Abdominal pain Genitourinary: DENIES: Urinary incontinence Integumentary: DENIES: Rash Hematologic/lymphatic: DENIES: Bruising Neurologic: COMPLAINS OF: Paresthesias, DENIES: Headache, Localized weakness, Speech Problems Psychiatric: DENIES: Confusion Past Family Social History Allergies: Coded Allergies: *MDRO Multi-Drug Resistant Organism (Verified Adverse Reaction, Unknown, MRSA, 05/29/16) MRSA (toe wound) - 01/27/16; (foot) - 05/24/16 MRSA PCR Screen POSITIVE - 05/26/16 Past Medical History Diabetes mellitus type 2 with neuropathy PVD COPD Hypertension Depression Atrial fibrillation CHF Recurrent UTI Chronic pain Bilateral diabetic foot ulcers Left lower extremity osteomyelitis Past Surgical History Cholecystectomy Tonsillectomy Current Medications Current Medications Medications (Trade) Dose Ordered Sig/Thaddeus Route Start Time Stop Time Status Last Admin Miscellaneous Information 1 1 Q361D XX 05/24/16 14:45 05/24/16 17:09 (Coumadin Consult Pharmacy) 0 ml @ 0 mls/hr UNSCH OTHER 05/24/16 14:45 Insulin Aspart 1 1 Q6HR SQ 05/24/16 15:30 06/14/16 01:40 (Vancomycin Consult Pharmacy) 0 ml @ 0 mls/hr UNSCH OTHER 05/24/16 16:15 (Santyl Oint) 1 applic DAILY TOP 05/25/16 09:00 06/16/16 08:53 (Flomax) 0.4 mg DAILY PO 05/28/16 15:00 06/16/16 08:51 Pantoprazole Sodium 40 mg 40 mg DAILY PO 05/30/16 09:00 06/16/16 08:51 (Vancomycin Inj/ NS 500 ml Inj) 517.5 ml @ 250 mls/hr Q36H IV 06/14/16 06:00 06/15/16 18:10 (NS Flush) 2 ml UNSCH PRN IVF 06/13/16 09:15 (NS Flush) 2 ml BID IVF 06/13/16 21:00 06/16/16 08:53 (Hustler 10-325 Mg) 1 tab Q3H PRN PO 06/13/16 09:15 06/16/16 08:52 (Hustler 10-325 Mg) 2 tab Q6H PRN PO 06/13/16 09:15 06/14/16 15:07 (Neurontin) 300 mg TID PO 06/13/16 13:00 06/16/16 08:50 (Morphine Inj) 4 mg Q3H PRN IV PUSH 06/13/16 09:15 06/14/16 17:52 (Coumadin) 3 mg DAILY@16 PO 06/14/16 16:00 06/15/16 18:09 Miscellaneous Information SPECIFIC LAB TO BE DRAWN:VANCOMYCIN TROUGH DATE TO... ONCE ONCE XX 06/17/16 05:45 06/17/16 05:46 Atorvastatin Calcium 20 mg 20 mg HS PO 06/15/16 21:00 06/15/16 21:48 Sodium Chloride 250 ml @ 15 mls/hr ONCE ONCE IV 06/16/16 09:30 06/17/16 02:09 (Rocephin Inj/NS Inj) 100 ml @ 200 mls/hr Q24H IV 06/16/16 10:00 Family History Noncontributory to history of present illness Social History Prior to admission patient was residing in a longterm facility. He was using a wheelchair for all mobility. Staff at longterm facility was using a Isabel lift for transfers. He required assistance for all ADLs Exam I&O / VS 06/15/16 06/15/16 06/16/16 15:00 23:00 07:00 Intake Total 480 ml 100 ml 220 ml Output Total 525 ml 300 ml 525 ml Balance -45 ml -200 ml -305 ml Intake Oral 480 ml 100 ml 220 ml Output Urine Total 525 ml 300 ml 525 ml # Bowel Movements 0 0 0 Vital Signs Date Time Temp Pulse Resp B/P Pulse Ox O2 Delivery O2 Flow Rate FiO2 06/16/16 08:00 98.1 92 20 114/57 100 06/16/16 04:00 99.5 91 20 93/53 93 06/16/16 00:00 100.2 92 20 96/51 97 06/15/16 20:54 98.1 98 20 101/48 97 06/15/16 20:00 Nasal Cannula 2.00 06/15/16 16:00 97.8 98 22 113/60 94 06/15/16 12:00 100.6 106 22 92/57 97 General: No acute distress, Other (NC O2 in place) Respiratory: Lungs CTA, Non-labored respirations, BS equal Gastrointestinal: Positive Bowel Sounds, Non-Distended, Non-Tender Cardiovascular: Normal rate, Regular Rhythm Psychiatric: Cooperative Orientation: oriented to Self, oriented to Place, oriented to Time, oriented to Situation Neurologic: Pupils (PERRLA), EOM (Intact), Facial Symmetry (Symmetric), Speech (Clear and intelligible) Motor: Right Upper Extremity (4-/5), Left Upper Extremity (4/5), Right Lower Extremity (3/5), Left Lower Extremity (AKA dressing intact; hip flexion 2/5) Sensory Impaired right LE distal to knee DTRs: Normal (1+ bilateral UE) Clonus: Negative (Right ankle) Assessment and Plan Diagnosis: (1) History of left above knee amputation Plan 1. Patient reports that he required Isabel lift for transfer at SNF prior to admission. PT providing ROM and strengthening and dependent for bed mobility. Would mobilize to stretcher chair as tolerated using lift as needed 2. OT for UE strengthening to allow patient to use UE for bed mobility and pressure relief when up to chair 3. Turn and reposition q 2 hours to protect skin and monitor carefully 4. Will follow regarding rehab needs while hospitalized and at discharge. Anticipate return to SNF and case management arranging. 5. Will follow while hospitalized and at discharge as needed. Thank you for this consult. Alisha Stratton MD Jun 16, 2016 11:57
--- NOTE | 2016-06-16 15:18 | EKG ---
Date Performed: 06/15/2016 Time Performed: 20:12:02 PTAGE: 66 years EKG: NORMAL Sinus rhythm DIFFUSED INFEROLAERAL ST DEPRESSION, CONCERNING FOR ISCHEMIA NONSPECIFIC ST & T-WAVE ABNORMALITY ABN ORMAL ECG PREVIOUS TRACING : 05/24/2016 13.20 Compared to previous tracing, the patient has new inferolat eral ST depression. DOCTOR: Anjana Corral Interpretating Date/Time 06/16/2016 15:17:41
[2016-06-16] MEDS: WARFARIN SOD 3 MG TAB PO SCH (15:51)
--- NOTE | 2016-06-16 16:02 | HHI.PR ---
Subjective Remarks Doing okay. Still feeling some weakness on his left hand. He denies any headaches visual changes or any difficulty swallowing. Objective Vitals Vital Signs Date Time Temp Pulse Resp B/P Pulse Ox O2 Delivery O2 Flow Rate FiO2 06/16/16 12:00 97.6 84 20 104/57 100 06/16/16 09:20 98 Nasal Cannula 2.00 06/16/16 08:00 Nasal Cannula 2.00 06/16/16 08:00 98.1 92 20 114/57 100 06/16/16 04:00 99.5 91 20 93/53 93 06/16/16 00:00 100.2 92 20 96/51 97 06/15/16 20:54 98.1 98 20 101/48 97 06/15/16 20:00 Nasal Cannula 2.00 06/15/16 16:00 97.8 98 22 113/60 94 I/O 06/15/16 06/15/16 06/15/16 06/16/16 06/16/16 06/16/16 07:00 15:00 23:00 07:00 15:00 23:00 Intake Total 0 ml 480 ml 100 ml 220 ml 2893 ml Output Total 125 ml 525 ml 300 ml 525 ml Balance -125 ml -45 ml -200 ml -305 ml 2893 ml Intake Oral 0 ml 480 ml 100 ml 220 ml IV Total 2893 ml Output Urine Total 125 ml 525 ml 300 ml 525 ml # Bowel Movements 0 0 0 0 Result Diagram: 06/16/1653006/16/16530 Other Results Item Value Date Time Prothromb Time International Ratio 1.0 RATIO 06/16/16530 Cholesterol Level 107 MG/DL L 06/16/16 0531 HDL Cholesterol 32.1 MG/DL L 06/16/16 0531 Microbiology Date/Time Procedure Status Source Growth 06/16/16 04:30 Urine Culture Received Urine Clean Catch Pending Objective Remarks GENERAL: This is a well-nourished, well-developed patient, in no apparent distress. CARDIOVASCULAR: Irregular Regular rate and rhythm RESPIRATORY: Clear to auscultation. Breath sounds equal bilaterally. No wheezes , rales, or rhonchi. GASTROINTESTINAL: Abdomen soft, non-tender, nondistended. Normal active bowel sounds MUSCULOSKELETAL: Left above the knee amputation with bandage, NEURO: Alert & Oriented x2 to person, place. Right upper extremity outpatient dietitian diminish with a 4 out of 5 in weakness along with right lower extremity weakness of 4 out of 5. Left upper extremity outpatient dietitian 4.5 out of 5, patient was unable to fully lift independently past 90 of bilateral upper extremity, CN II through 12 intact. Sensation seems to be grossly intact, normal speech although slow at times. A/P Problem List: (1) Severe sepsis ICD Code: A41.9 Status: Acute (2) Acute metabolic encephalopathy ICD Code: G93.41 Status: Resolved (3) Hyperkalemia ICD Code: E87.5 Status: Resolved (4) Dehydration ICD Code: E86.0 Status: Resolved (5) Acute renal failure ICD Code: N17.9 Status: Resolved (6) UTI (urinary tract infection) ICD Code: N39.0 Status: Acute (7) Leukocytosis ICD Code: D72.829 Status: Resolved (8) CAD (coronary artery disease) ICD Code: I25.10 Status: Chronic (9) PAD (peripheral artery disease) ICD Code: I73.9 Status: Chronic (10) Afib ICD Code: I48.91 Status: Chronic (11) CHF (congestive heart failure) ICD Code: I50.9 Status: Chronic (12) Diabetic foot ulcers ICD Code: E11.621 Status: Chronic Assessment and Plan Transient Neurological changes of right sided weakness yesterday on 06/15 which is now resolved. patient is extremely high risk for stroke , TIA and neurological event due to his atrial fibrillation and also initially off of anticoagulation for the surgery and now subtherapeutic on CoumadinMRI the brain is negative and workup initiated. Obtain EEG to also rule out seizure, appreciate neurology consultation. POSTOP day #3 left AKA on 06/13 for diabetic foot ulcer, OM. +MRSA - Post surgical management post operative pain rehabilitation as per surgical service - Antibiotics vancomycin as per infectious disease. Currently on vancomycin but dosing will need to be adjusted due to acute kidney injury. In addition Rocephin was initiated due to abnormal urinalysis with culture indicated. Urinary tract infectionremove Chase catheter and place condom catheter. Follow -up with final urine cultures. Appreciate rehabilitation medicine's recommendations concerning long-term recommendations in rehabilitation and improvement of ADL Acute kidney injury and now improved with hydration Adjust vancomycin dosing start IV fluid hydration. Previous Sepsis on admission. Resolved. - Initially thought to be secondary to Natalie UTI, however most likely secondary to osteomyelitis. Acute Anemia. Currently asymptomatic -Slow decline. Likely anemia of inflammation but will obtain a GI consultation for evaluation. Hemoccult stool. Hemoglobin once again dropped today below 7 and will transfuse another 2 units of packed red blood cell -Status post previous transfusion on 06/11. We'll monitor closely and may need another repeat transfusion Type 2 diabetes. Overall Control. Continue sliding scale insulin. Urinary retention on admission. With 800 mL in catheter on admission. We'll have a trial of Chase out and use condom catheter. Monitor closely with bladder scan. Outpatient urology evaluation. Repeat urinalysis due to fever overnight to rule out UTI, currently on Flomax Atrial fibrillation. Currently heart rate is controlled Held anticoagulation for BKA. Restarting warfarin at 3.0, no additional bolus to be given due to decrease in hemoglobin, today's INR is 1.0 Diabetic neuropathy. Chronic. Continue gabapentin. Tobaccoism. Recommend cessation. Hypertension and now borderline hypotensive due to infection. Hold all antihypertensives and on fluid hydration. UTI. On admission with Natalie glabrata. Status post diflucan. Suspect new UTI and awaiting final cultures. DVT Prophylaxis. Coumadin restarted by Will need to monitor closely the hemoglobin. Discharge Planning To detention facility once clinically and medically stable Problem Qualifiers (1) Acute renal failure: Qualified Code: N17.9 - Acute renal failure, unspecified acute renal failure type (2) UTI (urinary tract infection): (3) CAD (coronary artery disease): (4) Diabetic foot ulcers: Eloisa Choi MD Jun 16, 2016 16:02
--- NOTE | 2016-06-16 17:13 | PD.CONS ---
HPI History of Present Illness This is a 66 year old with a hx of CHF, COPD, HTN, diabetes, PVD, Depression, and on Coumadin for Atrial fibrillation, left foot osteomyelitis s/p AKA on 2016 who was brought to the ER for evaluation of altered mental status and abnormal vitals at a vascular surgeon office routine visit. Gi has been consulted for chronic anemia, which seems to be worsening . The patient a poor historian , but able to answer appropriately, he denies nausea, vomiting, hematemesis, abdominal pain, melena or hematochezia. He is being worked up for possible TIA. He is on Coumadin. hgb is 6.7 which is a drop from 9 on . He was seen by our GI service in April of last year for hematemesis and under went EGD on (05/09/16)--->reflux esophagitis, small hiatal hernia, gastritis, bx showed barrettes. He never had a colonoscopy before. (Martell Forbes) PFSH Past Medical History Depression PVD Diabetes Atrial fibrillation on Coumadin CHF (Echo 01/24/16 w/ EF 55-60%) COPD HTN UTI Past Surgical History Cholecystectomy Tonsillectomy AKA (06/13/16) (Martell Forbes) Coded Allergies: *MDRO Multi-Drug Resistant Organism (Verified Adverse Reaction, Unknown, MRSA, 05/29/16) MRSA (toe wound) - 01/27/16; (foot) - 05/24/16 MRSA PCR Screen POSITIVE - 05/26/16 Medications Current Medications Medications (Trade) Dose Ordered Sig/Thaddeus Route Start Time Stop Time Status Last Admin Miscellaneous Information 1 1 Q361D XX 05/24/16 14:45 05/24/16 17:09 (Coumadin Consult Pharmacy) 0 ml @ 0 mls/hr UNSCH OTHER 05/24/16 14:45 Insulin Aspart 1 1 Q6HR SQ 05/24/16 15:30 06/16/16 13:09 (Vancomycin Consult Pharmacy) 0 ml @ 0 mls/hr UNSCH OTHER 05/24/16 16:15 (Santyl Oint) 1 applic DAILY TOP 05/25/16 09:00 06/16/16 08:53 (Flomax) 0.4 mg DAILY PO 05/28/16 15:00 06/16/16 08:51 Pantoprazole Sodium 40 mg 40 mg DAILY PO 05/30/16 09:00 06/16/16 08:51 (Vancomycin Inj/ NS 500 ml Inj) 517.5 ml @ 250 mls/hr Q36H IV 06/14/16 06:00 06/15/16 18:10 (NS Flush) 2 ml UNSCH PRN IVF 06/13/16 09:15 (NS Flush) 2 ml BID IVF 06/13/16 21:00 06/16/16 08:53 (Orient 10-325 Mg) 1 tab Q3H PRN PO 06/13/16 09:15 06/16/16 08:52 (Orient 10-325 Mg) 2 tab Q6H PRN PO 06/13/16 09:15 06/14/16 15:07 (Neurontin) 300 mg TID PO 06/13/16 13:00 06/16/16 12:34 (Morphine Inj) 4 mg Q3H PRN IV PUSH 06/13/16 09:15 06/14/16 17:52 (Coumadin) 3 mg DAILY@16 PO 06/14/16 16:00 06/16/16 15:51 Miscellaneous Information SPECIFIC LAB TO BE DRAWN:VANCOMYCIN TROUGH DATE TO... ONCE ONCE XX 06/17/16 05:45 06/17/16 05:46 Atorvastatin Calcium 20 mg 20 mg HS PO 06/15/16 21:00 06/15/16 21:48 Sodium Chloride 250 ml @ 15 mls/hr ONCE ONCE IV 06/16/16 09:30 06/17/16 02:09 06/16/16 12:33 (Rocephin Inj/NS Inj) 100 ml @ 200 mls/hr Q24H IV 06/16/16 10:00 06/16/16 12:33 Family History No family history of colon cancer Social History Negative for alcohol, tobacco or drugs (Martell Forbes) Review of Systems Constitutional: DENIES: Fever, Chills Endocrine: DENIES: Polyuria Eyes: DENIES: Double Vision Ears, nose, mouth, throat: DENIES: Hoarseness Respiratory: DENIES: Shortness of breath Cardiovascular: DENIES: Claudication Gastrointestinal: DENIES: Abdominal pain, Black stools, Bloody stools, Constipation, Diarrhea, Nausea, Vomiting, Difficulty Swallowing, Anorexia, Odynophagia, Swelling of Abdomen, Heartburn, Hematemesis Genitourinary: DENIES: Hematuria Musculoskeletal: DENIES: Neck pain Integumentary: DENIES: Jaundice Hematologic/lymphatic: DENIES: Bruising Immunologic/allergic: DENIES: Eczema Neurologic: DENIES: Abnormal gait Psychiatric: DENIES: Anxiety (Leidy,Martell AMMONIA DISTILLER) GI Exam Vitals I&O Vital Signs Date Time Temp Pulse Resp B/P Pulse Ox O2 Delivery O2 Flow Rate FiO2 06/16/16 12:00 97.6 84 20 104/57 100 06/16/16 09:20 98 Nasal Cannula 2.00 06/16/16 08:00 Nasal Cannula 2.00 06/16/16 08:00 98.1 92 20 114/57 100 06/16/16 04:00 99.5 91 20 93/53 93 06/16/16 00:00 100.2 92 20 96/51 97 06/15/16 20:54 98.1 98 20 101/48 97 06/15/16 20:00 Nasal Cannula 2.00 I/O 06/15/16 06/15/16 06/15/16 06/16/16 06/16/16 06/16/16 07:00 15:00 23:00 07:00 15:00 23:00 Intake Total 0 ml 480 ml 100 ml 220 ml 2893 ml Output Total 125 ml 525 ml 300 ml 525 ml Balance -125 ml -45 ml -200 ml -305 ml 2893 ml Intake Oral 0 ml 480 ml 100 ml 220 ml IV Total 2893 ml Output Urine Total 125 ml 525 ml 300 ml 525 ml # Bowel Movements 0 0 0 0 Imaging Last Impressions Brain MRI 06/15/16 1143 Signed Impressions: Service Date/Time: June 12:49 - CONCLUSION: 1. Cerebral atrophy and extensive chronic ischemic small vessel vasculopathy. 2. No acute infarction. Subhash Arteaga MD Chest X-Ray 06/15/16 0000 Signed Impressions: Service Date/Time: June 12:12 - CONCLUSION: Bilateral mainly basilar infiltrates and bilateral effusions Bret Vidal MD Carotid Artery Ultrasound 06/15/16 0000 Signed Impressions: Service Date/Time: June 18:56 - CONCLUSION: 1. Bilateral carotid bifurcation atherosclerosis, moderate on the right and mild on the left. No hemodynamically significant narrowing on either side. 2. Limited study and the vertebral arteries are not well-visualized today. They had antegrade flow within them on the prior ultrasound. Bret Truong MD Foot MRI 06/07/16 0000 Signed Impressions: Service Date/Time: Tuesday, June 07, 2016 09:34 - CONCLUSION: 1. Deep soft tissue ulcer of the midfoot and with associated osteomyelitis of the plantar/lateral aspect of the fourth metatarsal base and mid to distal cuboid. Please see above. Fifth metatarsal previously resected. 2. Second toe amputation since the prior MRI. Indurated soft tissues and focal cortical destruction seen of the second metatarsal head remnant. No deep osteomyelitis of the second metatarsal. 3. No soft tissue abscesses are demonstrated. 4. Apparent cellulitis of the heel pad. No calcaneal osteomyelitis demonstrated. Bret Truong MD Ankle MRI 06/07/16 0000 Signed Impressions: Service Date/Time: Tuesday, June 07, 2016 09:34 - CONCLUSION: 1. No evidence of osteomyelitis. 2. Old healed fracture of the distal fibula. 3. Subcutaneous nonspecific edema. Juan Bonilla MD Upper Extremity Ultrasound 06/05/16 0000 Signed Impressions: Service Date/Time: Sunday, June 05, 2016 20:02 - CONCLUSION: Normal examination. Don Izaguirre MD Aorta w/Runoff CTA 06/01/16 0000 Signed Impressions: Service Date/Time: May 12:13 - CONCLUSION: 1. Heavily diseased but adequate in flow down to the level of the groin bilaterally. 2. 3. Right le. Diffusely diseased superficial femoral artery with multiple areas of moderate and scattered areas of high grade stenosis. The popliteal is diseased but adequate in caliber. Distally, there is single vessel runoff into the foot via the anterior tibial. 5. 6. Left le. Heavily diseased superficial femoral with scattered areas of moderate and high grade stenosis. The popliteal is heavily diseased as well. Distally, there is occlusion of the origin of all 3 trifurcation vessels. Eventually, there is reconstitution of the anterior tibial and posterior tibial. Aric Cazares MD Head CT 05/24/16 1217 Signed Impressions: Service Date/Time: Tuesday, May 24, 2016 12:55 - CONCLUSION: 1. No acute intracranial abnormality. 2. Atrophy. 3. Chronic small vessel ischemic change. Juvenal Jarquin Jr., MD Laboratory Test 06/16/16 06/16/16 06/16/16 04:30 05:31 14:41 Urine Color YELLOW Urine Turbidity CLOUDY Urine pH 5.0 Urine Specific Susan 1.020 Urine Protein 30 mg/dL Urine Glucose (UA) NEG mg/dL Urine Ketones 10 mg/dL Urine Occult Blood SMALL Urine Nitrite NEG Urine Bilirubin NEG Urine Urobilinogen LESS THAN 2.0 MG/DL Urine Leukocyte Esterase LARGE Urine RBC 99 /hpf Urine WBC /hpf Urine WBC Clumps MANY Urine Bacteria FEW /hpf Urine Mucus FEW /lpf Urine Yeast (Budding) MANY Microscopic Urinalysis Comment CULTURE INDICATED White Blood Count 6.6 TH/MM3 Red Blood Count 2.14 MIL/MM3 Hemoglobin 6.7 GM/DL Hematocrit 19.8 % Mean Corpuscular Volume 92.6 FL Mean Corpuscular Hemoglobin 31.3 PG Mean Corpuscular Hemoglobin 33.8 % Concent Red Cell Distribution Width 18.2 % Platelet Count 209 TH/MM3 Mean Platelet Volume 8.1 FL Neutrophils (%) (Auto) 68.9 % Lymphocytes (%) (Auto) 16.4 % Monocytes (%) (Auto) 11.9 % Eosinophils (%) (Auto) 1.8 % Basophils (%) (Auto) 1.0 % Neutrophils # (Auto) 4.6 TH/MM3 Lymphocytes # (Auto) 1.1 TH/MM3 Monocytes # (Auto) 0.8 TH/MM3 Eosinophils # (Auto) 0.1 TH/MM3 Basophils # (Auto) 0.1 TH/MM3 CBC Comment DIFF FINAL Differential Comment Prothrombin Time 11.3 SEC Prothromb Time International 1.0 RATIO Ratio Sodium Level 138 MEQ/L Potassium Level 4.8 MEQ/L Chloride Level 102 MEQ/L Carbon Dioxide Level 29.2 MEQ/L Anion Gap 7 MEQ/L Blood Urea Nitrogen 20 MG/DL Creatinine 1.27 MG/DL Estimat Glomerular Filtration 56 ML/MIN Rate Random Glucose 105 MG/DL Calcium Level 8.0 MG/DL Triglycerides Level 97 MG/DL Cholesterol Level 107 MG/DL LDL Cholesterol 56 MG/DL HDL Cholesterol 32.1 MG/DL Cholesterol/HDL Ratio 3.33 RATIO Blood Type A POSITIVE Antibody Screen POSITIVE Crossmatch Leukocyte-Reduced Red Blood Cells Blood Bank Comment Date/Time Procedure Status Source Growth 06/16/16 04:30 Urine Culture Received Urine Clean Catch Pending Physical Examination HEENT: normocephalic; atraumatic; no jaundice. NECK: Neck is supple, no JVD, no lymphadenopathy. CHEST: Chest is clear to auscultation and percussion. CARDIAC: Regular rate and rhythm with no murmur gallop or rubs. ABDOMEN: Soft, nondistended, nontender; no hepatosplenomegaly; bowel sounds are present in all four quadrants. EXTREMITIES: Left above the knee amputation with bandage SKIN: Normal; no rash; no jaundice. MANNEQUIN MOUNTER: No focal deficits; alert and oriented times three. (Martell Forbes) Assessment and Plan Plan - Chronic Anemia, No GI bleeding reported, anemia seems to be worsening . The patient a poor historian , but able to answer appropriately, he denies nausea, vomiting, hematemesis, abdominal pain, melena or hematochezia. He is being worked up for possible TIA. He is on Coumadin. hgb is 6.7 which is a drop from 9 on 06/12/16. He was seen by our GI service in April of last year for hematemesis and under went EGD on (05/09/16)--->reflux esophagitis, small hiatal hernia, gastritis, bx showed barrettes. He never had a colonoscopy before. Patient is hemodynamically stable. - TIA- Neurology on the case, work up in progress - osteomyelitis of left ankle S/P AKA (06/13/16) - Atrial fibrillation. on Coumadin - PVD, DM, CHF, Depression, COPD, HTN per primary PLAN: - SUSAN - Patient is not stable for any procedures at this time, recent AKA, risk of contamination with colonoscopy also he is under going neuro work up - Monitor HH - Transfuse as needed - Supportive care - Pt seen and examined by Dr. Stevens and myself and this note is written on his behalf (Martell Forbes) Physician Comments Patient was seen and examined, agree with above note and plan, conservative care until more stable or active bleed. (Dayna Stevens MD) Martell Forbes Jun 16, 2016 17:13 Dayna Stevens MD Jun 17, 2016 08:05
--- NOTE | 2016-06-16 20:40 | HHI.IDPN ---
Subjective Subjective Remarks sp L AKA started tp have fevers up to 101 UA was abnormal clx P [place] was changed to condom cath zosyn added Antibiotics zosyn vancomycin Allergies: Coded Allergies: *MDRO Multi-Drug Resistant Organism (Verified Adverse Reaction, Unknown, MRSA, 05/29/16) MRSA (toe wound) - 01/27/16; (foot) - 05/24/16 MRSA PCR Screen POSITIVE - 05/26/16 Objective . Vital Signs Date Time Temp Pulse Resp B/P Pulse Ox O2 Delivery O2 Flow Rate FiO2 06/16/16 20:00 97.9 83 18 108/66 95 06/16/16 18:31 97.8 83 20 108/66 100 06/16/16 18:24 98.2 83 20 107/59 100 06/16/16 17:45 98.2 86 20 103/62 100 06/16/16 16:00 97.8 90 20 105/56 99 06/16/16 12:00 97.6 84 20 104/57 100 06/16/16 09:20 98 Nasal Cannula 2.00 06/16/16 08:00 Nasal Cannula 2.00 06/16/16 08:00 98.1 92 20 114/57 100 06/16/16 04:00 99.5 91 20 93/53 93 06/16/16 00:00 100.2 92 20 96/51 97 06/15/16 20:54 98.1 98 20 101/48 97 06/15/16 06/15/16 06/16/16 15:00 23:00 07:00 Intake Total 480 ml 100 ml 220 ml Output Total 525 ml 300 ml 525 ml Balance -45 ml -200 ml -305 ml Intake Oral 480 ml 100 ml 220 ml Output Urine Total 525 ml 300 ml 525 ml # Bowel Movements 0 0 0 . Laboratory Tests Test 06/15/16 06/15/16 06/16/16 02:52 12:24 05:31 White Blood Count 6.8 TH/MM3 8.5 TH/MM3 6.6 TH/MM3 Red Blood Count 2.43 MIL/MM3 2.44 MIL/MM3 2.14 MIL/MM3 Hemoglobin 7.4 GM/DL 7.6 GM/DL 6.7 GM/DL Hematocrit 22.4 % 22.5 % 19.8 % Mean Corpuscular Volume 92.0 FL 92.1 FL 92.6 FL Mean Corpuscular Hemoglobin 30.4 PG 31.3 PG 31.3 PG Mean Corpuscular Hemoglobin 33.0 % 34.0 % 33.8 % Concent Red Cell Distribution Width 18.5 % 18.4 % 18.2 % Platelet Count 220 TH/MM3 199 TH/MM3 209 TH/MM3 Mean Platelet Volume 8.0 FL 8.2 FL 8.1 FL Neutrophils (%) (Auto) 67.1 % 77.7 % 68.9 % Lymphocytes (%) (Auto) 15.1 % 10.4 % 16.4 % Monocytes (%) (Auto) 12.8 % 9.4 % 11.9 % Eosinophils (%) (Auto) 3.6 % 1.6 % 1.8 % Basophils (%) (Auto) 1.4 % 0.9 % 1.0 % Neutrophils # (Auto) 4.6 TH/MM3 6.6 TH/MM3 4.6 TH/MM3 Lymphocytes # (Auto) 1.0 TH/MM3 0.9 TH/MM3 1.1 TH/MM3 Monocytes # (Auto) 0.9 TH/MM3 0.8 TH/MM3 0.8 TH/MM3 Eosinophils # (Auto) 0.2 TH/MM3 0.1 TH/MM3 0.1 TH/MM3 Basophils # (Auto) 0.1 TH/MM3 0.1 TH/MM3 0.1 TH/MM3 CBC Comment DIFF FINAL DIFF FINAL DIFF FINAL Differential Comment Laboratory Tests Test 06/15/16 06/15/16 06/16/16 02:52 12:24 05:31 Sodium Level 139 MEQ/L 138 MEQ/L Potassium Level 5.0 MEQ/L 4.8 MEQ/L Chloride Level 102 MEQ/L 102 MEQ/L Carbon Dioxide Level 30.2 MEQ/L 29.2 MEQ/L Anion Gap 7 MEQ/L 7 MEQ/L Blood Urea Nitrogen 18 MG/DL 20 MG/DL Creatinine 1.48 MG/DL 1.27 MG/DL Estimat Glomerular Filtration 47 ML/MIN 56 ML/MIN Rate Random Glucose 106 MG/DL 105 MG/DL Calcium Level 8.5 MG/DL 8.0 MG/DL Hemoglobin A1c 4.9 % Triglycerides Level 97 MG/DL Cholesterol Level 107 MG/DL LDL Cholesterol 56 MG/DL HDL Cholesterol 32.1 MG/DL Cholesterol/HDL Ratio 3.33 RATIO Microbiology Date/Time Procedure Status Source Growth 06/16/16 04:30 Urine Culture Received Urine Clean Catch Pending Imaging Last Impressions Brain MRI 06/15/16 1143 Signed Impressions: Service Date/Time: June 12:49 - CONCLUSION: 1. Cerebral atrophy and extensive chronic ischemic small vessel vasculopathy. 2. No acute infarction. Subhash Arteaga MD Chest X-Ray 06/15/16 0000 Signed Impressions: Service Date/Time: June 12:12 - CONCLUSION: Bilateral mainly basilar infiltrates and bilateral effusions Bret Vidal MD Carotid Artery Ultrasound 06/15/16 0000 Signed Impressions: Service Date/Time: June 18:56 - CONCLUSION: 1. Bilateral carotid bifurcation atherosclerosis, moderate on the right and mild on the left. No hemodynamically significant narrowing on either side. 2. Limited study and the vertebral arteries are not well-visualized today. They had antegrade flow within them on the prior ultrasound. Bret Truong MD Foot MRI 06/07/16 0000 Signed Impressions: Service Date/Time: Tuesday, June 07, 2016 09:34 - CONCLUSION: 1. Deep soft tissue ulcer of the midfoot and with associated osteomyelitis of the plantar/lateral aspect of the fourth metatarsal base and mid to distal cuboid. Please see above. Fifth metatarsal previously resected. 2. Second toe amputation since the prior MRI. Indurated soft tissues and focal cortical destruction seen of the second metatarsal head remnant. No deep osteomyelitis of the second metatarsal. 3. No soft tissue abscesses are demonstrated. 4. Apparent cellulitis of the heel pad. No calcaneal osteomyelitis demonstrated. Bret Truong MD Ankle MRI 06/07/16 0000 Signed Impressions: Service Date/Time: Tuesday, June 07, 2016 09:34 - CONCLUSION: 1. No evidence of osteomyelitis. 2. Old healed fracture of the distal fibula. 3. Subcutaneous nonspecific edema. Juan Bonilla MD Upper Extremity Ultrasound 06/05/16 0000 Signed Impressions: Service Date/Time: Sunday, June 05, 2016 20:02 - CONCLUSION: Normal examination. KNoam Izaguirre MD Aorta w/Runoff CTA 06/01/16 0000 Signed Impressions: Service Date/Time: May 12:13 - CONCLUSION: 1. Heavily diseased but adequate in flow down to the level of the groin bilaterally. 2. 3. Right le. Diffusely diseased superficial femoral artery with multiple areas of moderate and scattered areas of high grade stenosis. The popliteal is diseased but adequate in caliber. Distally, there is single vessel runoff into the foot via the anterior tibial. 5. 6. Left le. Heavily diseased superficial femoral with scattered areas of moderate and high grade stenosis. The popliteal is heavily diseased as well. Distally, there is occlusion of the origin of all 3 trifurcation vessels. Eventually, there is reconstitution of the anterior tibial and posterior tibial. Aric Cazares MD Head CT 05/24/16 1217 Signed Impressions: Service Date/Time: Tuesday, May 24, 2016 12:55 - CONCLUSION: 1. No acute intracranial abnormality. 2. Atrophy. 3. Chronic small vessel ischemic change. Juvenal Jarquin Jr., MD Physical Exam CONSTITUTIONAL/GENERAL: This is an obese elderly patient, in no apparent distress. SKIN: No jaundice, rashes, or lesions. Skin temperature appropriate. Not diaphoretic. EYES: No scleral icterus. No injection or drainage. ENT: Oral mucosae moist without visible erythema, exudates, masses, or lesions. Edentulous CARDIOVASCULAR: Regular rate and rhythm without murmurs, gallops, or rubs. RESPIRATORY/CHEST: Symmetric, unlabored respirations. Clear to auscultation. GASTROINTESTINAL: Abdomen soft, non-tender, nondistended. Bowel sounds present. GENITOURINARY: Without palpable bladder distension. Condom catheter in place with cloudy yellow urine MUSCULOSKELETAL: Extremities without clubbing, cyanosis, R foot with dressing in place L LE sp AKA NEUROLOGICAL: Awake and alert. Motor and sensory grossly within normal limits. Follows commands. speech normal Moves all extremities. 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 MD Jun 16, 2016 20:40
--- NOTE | 2016-06-16 20:45 | HHI.PR ---
Review/Management Daily Summary right hand swollen left hand fully recovered as per pt to have blood transfusion by the time i came in this evening encephalopathy/stable ?tia, resolved prn neuro Subjective Subjective Comments No acute events reported No headache Active Medications Current Medications Medications (Trade) Dose Ordered Sig/Thaddeus Route Start Time Stop Time Status Last Admin Miscellaneous Information 1 1 [id number] XX 05/24/16 14:45 05/24/16 17:09 (Coumadin Consult Pharmacy) 0 ml @ 0 mls/hr UNSCH OTHER 05/24/16 14:45 Insulin Aspart 1 1 Q6HR SQ 05/24/16 15:30 06/16/16 13:09 (Vancomycin Consult Pharmacy) 0 ml @ 0 mls/hr UNSCH OTHER 05/24/16 16:15 (Santyl Oint) 1 applic DAILY TOP 05/25/16 09:00 06/16/16 08:53 (Flomax) 0.4 mg DAILY PO 05/28/16 15:00 06/16/16 08:51 Pantoprazole Sodium 40 mg 40 mg DAILY PO 05/30/16 09:00 06/16/16 08:51 (Vancomycin Inj/ NS 500 ml Inj) 517.5 ml @ 250 mls/hr Q36H IV 06/14/16 06:00 06/15/16 18:10 (NS Flush) 2 ml UNSCH PRN IVF 06/13/16 09:15 (NS Flush) 2 ml BID IVF 06/13/16 21:00 06/16/16 08:53 ([place] 10-325 Mg) 1 tab Q3H PRN PO 06/13/16 09:15 06/16/16 08:52 ([place] 10-325 Mg) 2 tab Q6H PRN PO 06/13/16 09:15 06/14/16 15:07 (Neurontin) 300 mg TID PO 06/13/16 13:00 06/16/16 18:28 (Morphine Inj) 4 mg Q3H PRN IV PUSH 06/13/16 09:15 06/14/16 17:52 (Coumadin) 3 mg DAILY@16 PO 06/14/16 16:00 06/16/16 15:51 Miscellaneous Information SPECIFIC LAB TO BE DRAWN:VANCOMYCIN TROUGH DATE TO... ONCE ONCE XX 06/17/16 05:45 06/17/16 05:46 Atorvastatin Calcium 20 mg 20 mg HS PO 06/15/16 21:00 06/15/16 21:48 Sodium Chloride 250 ml @ 15 mls/hr ONCE ONCE IV 06/16/16 09:30 06/17/16 02:09 06/16/16 12:33 (Zosyn 3.375 Gm Premix) 50 ml @ 100 mls/hr Q6H IV 06/16/16 20:00 Allergies Allergies Coded Allergies *MDRO Multi-Drug Resistant Organism (Verified Adverse Reaction, Unknown, MRSA , 05/29/16) Exam I&O / VS 06/15/16 06/15/16 06/16/16 15:00 23:00 07:00 Intake Total 480 ml 100 ml 220 ml Output Total 525 ml 300 ml 525 ml Balance -45 ml -200 ml -305 ml Intake Oral 480 ml 100 ml 220 ml Output Urine Total 525 ml 300 ml 525 ml # Bowel Movements 0 0 0 Vital Signs Date Time Temp Pulse Resp B/P Pulse Ox O2 Delivery O2 Flow Rate FiO2 06/16/16 20:00 97.9 83 18 108/66 95 06/16/16 18:31 97.8 83 20 108/66 100 06/16/16 18:24 98.2 83 20 107/59 100 06/16/16 17:45 98.2 86 20 103/62 100 06/16/16 16:00 97.8 90 20 105/56 99 06/16/16 12:00 97.6 84 20 104/57 100 06/16/16 09:20 98 Nasal Cannula 2.00 06/16/16 08:00 Nasal Cannula 2.00 06/16/16 08:00 98.1 92 20 114/57 100 06/16/16 04:00 99.5 91 20 93/53 93 06/16/16 00:00 100.2 92 20 96/51 97 06/15/16 20:54 98.1 98 20 101/48 97 Respiratory: Lungs CTA, Non-labored respirations, BS equal Cardiology: Normal rate, Regular Rhythm Objective Radiology Results Last 48 hours Impressions Brain MRI 06/15/16 1143 Signed Impressions: Service Date/Time: June 12:49 - CONCLUSION: 1. Cerebral atrophy and extensive chronic ischemic small vessel vasculopathy. 2. No acute infarction. Subhash Artaega MD Chest X-Ray 06/15/16 0000 Signed Impressions: Service Date/Time: June 12:12 - CONCLUSION: Bilateral mainly basilar infiltrates and bilateral effusions Bret Vidal MD Carotid Artery Ultrasound 06/15/16 0000 Signed Impressions: Service Date/Time: June 18:56 - CONCLUSION: 1. Bilateral carotid bifurcation atherosclerosis, moderate on the right and mild on the left. No hemodynamically significant narrowing on either side. 2. Limited study and the vertebral arteries are not well-visualized today. They had antegrade flow within them on the prior ultrasound. Bret Truong MD Micro and Labs Laboratory Tests Test 06/16/16 06/16/16 06/16/16 04:30 05:31 14:41 Urine Color YELLOW Urine Turbidity CLOUDY Urine pH 5.0 Urine Specific [place] 1.020 Urine Protein 30 Urine Glucose (UA) NEG Urine Ketones 10 Urine Occult Blood SMALL Urine Nitrite NEG Urine Bilirubin NEG Urine Urobilinogen LESS THAN 2.0 Urine Leukocyte Esterase LARGE Urine RBC 99 Urine WBC Urine WBC Clumps MANY Urine Bacteria FEW Urine Mucus FEW Urine Yeast (Budding) MANY Microscopic Urinalysis Comment CULTURE INDICATED White Blood Count 6.6 Red Blood Count 2.14 Hemoglobin 6.7 Hematocrit 19.8 Mean Corpuscular Volume 92.6 Mean Corpuscular Hemoglobin 31.3 Mean Corpuscular Hemoglobin 33.8 Concent Red Cell Distribution Width 18.2 Platelet Count 209 Mean Platelet Volume 8.1 Neutrophils (%) (Auto) 68.9 Lymphocytes (%) (Auto) 16.4 Monocytes (%) (Auto) 11.9 Eosinophils (%) (Auto) 1.8 Basophils (%) (Auto) 1.0 Neutrophils # (Auto) 4.6 Lymphocytes # (Auto) 1.1 Monocytes # (Auto) 0.8 Eosinophils # (Auto) 0.1 Basophils # (Auto) 0.1 CBC Comment DIFF FINAL Differential Comment Prothrombin Time 11.3 Prothromb Time International 1.0 Ratio Sodium Level 138 Potassium Level 4.8 Chloride Level 102 Carbon Dioxide Level 29.2 Anion Gap 7 Blood Urea Nitrogen 20 Creatinine 1.27 Estimat Glomerular Filtration 56 Rate Random Glucose 105 Calcium Level 8.0 Triglycerides Level 97 Cholesterol Level 107 LDL Cholesterol 56 HDL Cholesterol 32.1 Cholesterol/HDL Ratio 3.33 Blood Type A POSITIVE Antibody Screen POSITIVE Crossmatch Leukocyte-Reduced Red Blood Cells Blood Bank Comment Date/Time Procedure Status Source Growth 06/16/16 04:30 Urine Culture Received Urine Clean Catch Pending Lisa Cherry MD Jun 16, 2016 20:44
[2016-06-16] MEDS: ATORVASTATIN 20 MG TAB PO SCH (21:43)
[2016-06-16] MEDS: PIPERACIL-TAZO 3.375 GM PREMIX 50 ML IV SCH (22:00)
[2016-06-17] VITALS (8 sets, daily range): BP systolic 110–122; BP diastolic 56–70; PULSE 82–92; RESP 18–20; TEMP 97–99; O2SAT 95–100
[2016-06-17] MEDS: PIPERACIL-TAZO 3.375 GM PREMIX 50 ML IV SCH ×4 (02:36→20:43)
[2016-06-17] MEDS ORDERED: PHARMACY ORDERED LAB XX ONE (05:45)
[2016-06-17] MEDS: INSULIN ASPART SUPPLEMENTAL SCALE SQ SCH ×5 (05:55→23:41)
[2016-06-17] MEDS: VANCOMYCIN INJ 1,750 MG in SODIUM CHLORID 0.9% 500 ML INJ 500 ML IV SCH (05:55)
[2016-06-17 07:24] LABS: BASOPHIL # 0.1 TH/MM3 (0-0.2); BASOPHIL % 1.4 % (0.0-2.0); EOSINOPHIL # 0.3 TH/MM3 (0-0.4); EOSINOPHIL % 3.7 % (0.0-4.0); HEMATOCRIT 26.1 % (39.0-51.0); HEMO FLAGS DIFF FINAL; LYMPH % 17.4 % (9.0-44.0); LYMPHOCYTE # 1.3 TH/MM3 (1.0-4.8); MEAN CELL VOLUME 89.4 FL (80.0-100.0); MEAN CORPUSCULAR HEMOGLOBIN 31.4 PG (27.0-34.0); MEAN CORPUSCULAR HGB CONC 35.1 % (32.0-36.0); MONO % 10.6 % (0.0-8.0); NEUT % 66.9 % (16.0-70.0); PLATELET COUNT 213 TH/MM3 (150-450); RED BLOOD COUNT 2.92 MIL/MM3 (4.50-5.90); RED CELL DISTRIBUTION WIDTH 16.6 % (11.6-17.2); WHITE BLOOD COUNT 7.4 TH/MM3 (4.0-11.0)
[2016-06-17 07:36] LABS: INTERNATIONAL NORMALIZED RATIO 1.1 RATIO; PROTHROMBIN TIME - PATIENT 12.7 SEC (9.8-11.6)
[2016-06-17 07:45] LABS: BICARBONATE 29.8 MEQ/L (21.0-32.0)
[2016-06-17] MEDS: PANTOPRAZOLE SOD 40 MG DELAYED RELEASE TAB PO SCH (08:13)
[2016-06-17] MEDS: TAMSULOSIN HCL 0.4 MG CAP PO SCH (08:13)
[2016-06-17] MEDS: SODIUM CHLORIDE 0.9% FLUSH 5 ML FLUSH IVF SCH ×2 (08:13→20:37)
[2016-06-17] MEDS: GABAPENTIN 300 MG CAP PO SCH ×3 (08:13→17:14)
[2016-06-17] MEDS: COLLAGENASE OINT 30 GM TUBE TOP SCH (08:14)
--- NOTE | 2016-06-17 11:31 | HHI.PR ---
Subjective Remarks resting comfortably with no distress. pain is fairly controlled. no other complaints. Objective Vitals Vital Signs Date Time Temp Pulse Resp B/P Pulse Ox O2 Delivery O2 Flow Rate FiO2 06/17/16 09:30 96 Nasal Cannula 2.00 06/17/16 08:52 Nasal Cannula 2.00 06/17/16 08:00 97.0 84 20 113/66 97 06/17/16 01:32 98.0 82 20 110/70 96 06/17/16 01:20 98.0 85 18 116/62 100 06/16/16 22:35 97.9 86 18 118/57 98 06/16/16 22:20 97.8 85 18 116/56 100 06/16/16 21:45 97.8 86 18 112/57 100 06/16/16 21:36 96 Nasal Cannula 2.00 06/16/16 20:00 96 06/16/16 20:00 Nasal Cannula 2.00 06/16/16 20:00 97.9 83 18 108/66 95 06/16/16 18:31 97.8 83 20 108/66 100 06/16/16 18:24 98.2 83 20 107/59 100 06/16/16 17:45 98.2 86 20 103/62 100 06/16/16 16:00 97.8 90 20 105/56 99 06/16/16 12:00 97.6 84 20 104/57 100 I/O 06/16/16 06/16/16 06/16/16 06/17/16 06/17/16 06/17/16 07:00 15:00 23:00 07:00 15:00 23:00 Intake Total 220 ml 3613 ml 750 ml Output Total 525 ml 800 ml Balance -305 ml 2813 ml 750 ml Intake Oral 220 ml 720 ml 750 ml IV Total 2893 ml Output Urine Total 525 ml 800 ml # Bowel Movements 0 1 Result Diagram: 06/17/16 0520 06/17/16 0620 Imaging Last Impressions Brain MRI 06/15/16 1143 Signed Impressions: Service Date/Time: June 12:49 - CONCLUSION: 1. Cerebral atrophy and extensive chronic ischemic small vessel vasculopathy. 2. No acute infarction. Subhash Arteaga MD Chest X-Ray 06/15/16 0000 Signed Impressions: Service Date/Time: June 12:12 - CONCLUSION: Bilateral mainly basilar infiltrates and bilateral effusions Bret Vidal MD Carotid Artery Ultrasound 06/15/16 0000 Signed Impressions: Service Date/Time: June 18:56 - CONCLUSION: 1. Bilateral carotid bifurcation atherosclerosis, moderate on the right and mild on the left. No hemodynamically significant narrowing on either side. 2. Limited study and the vertebral arteries are not well-visualized today. They had antegrade flow within them on the prior ultrasound. Bret Truong MD Foot MRI 06/07/16 0000 Signed Impressions: Service Date/Time: Tuesday, June 07, 2016 09:34 - CONCLUSION: 1. Deep soft tissue ulcer of the midfoot and with associated osteomyelitis of the plantar/lateral aspect of the fourth metatarsal base and mid to distal cuboid. Please see above. Fifth metatarsal previously resected. 2. Second toe amputation since the prior MRI. Indurated soft tissues and focal cortical destruction seen of the second metatarsal head remnant. No deep osteomyelitis of the second metatarsal. 3. No soft tissue abscesses are demonstrated. 4. Apparent cellulitis of the heel pad. No calcaneal osteomyelitis demonstrated. Bret Truong MD Ankle MRI 06/07/16 0000 Signed Impressions: Service Date/Time: Tuesday, June 07, 2016 09:34 - CONCLUSION: 1. No evidence of osteomyelitis. 2. Old healed fracture of the distal fibula. 3. Subcutaneous nonspecific edema. Juan Bonilla MD Upper Extremity Ultrasound 06/05/16 0000 Signed Impressions: Service Date/Time: Sunday, June 05, 2016 20:02 - CONCLUSION: Normal examination. Don Izaguirre MD Aorta w/Runoff CTA 06/01/16 0000 Signed Impressions: Service Date/Time: May 12:13 - CONCLUSION: 1. Heavily diseased but adequate in flow down to the level of the groin bilaterally. 2. 3. Right le. Diffusely diseased superficial femoral artery with multiple areas of moderate and scattered areas of high grade stenosis. The popliteal is diseased but adequate in caliber. Distally, there is single vessel runoff into the foot via the anterior tibial. 5. 6. Left le. Heavily diseased superficial femoral with scattered areas of moderate and high grade stenosis. The popliteal is heavily diseased as well. Distally, there is occlusion of the origin of all 3 trifurcation vessels. Eventually, there is reconstitution of the anterior tibial and posterior tibial. Aric Cazares MD Head CT 05/24/16 1217 Signed Impressions: Service Date/Time: Tuesday, May 24, 2016 12:55 - CONCLUSION: 1. No acute intracranial abnormality. 2. Atrophy. 3. Chronic small vessel ischemic change. Juvenal Jarquin Jr., MD Objective Remarks GENERAL: This is a well-nourished, well-developed patient, in no apparent distress. CARDIOVASCULAR: Regular rate and regular rhythm without murmurs, gallops, or rubs. RESPIRATORY: Clear to auscultation. Breath sounds equal bilaterally. No wheezes , rales, or rhonchi. GASTROINTESTINAL: Abdomen soft, non-tender, nondistended. Normal, active bowel sounds MUSCULOSKELETAL: s/p left AKA NEURO: Alert & Oriented x4 to person, place, time, situation. Moves all ext x4 Procedures left AKA Medications and IVs Current Medications IV Flush 2 ml 2 ml UNSCH PRN IVF FLUSH AFTER USING IV ACCESS; Start 05/24/16 at 12:30; Stop 05/24/16 at 15:31; Status DC Sodium Chloride 1,000 ml @ 1,000 mls/hr Q1H IV Last administered on at 13:23; Start 05/24/16 at 12:17; Stop 05/24/16 at 13:16; Status DC Piperacillin Sod/ Tazobactam Sod 100 ml @ 200 mls/hr ONCE ONCE IV Last administered on 05/24/16at 13:23; Start 05/24/16 at 12:30; Stop 05/24/16 at 12 :59; Status DC Vancomycin HCl/ Sodium Chloride (Vancomycin Inj/ NS 250 ml Inj) 250 ml @ 250 mls/hr ONCE ONCE IV Last administered on 05/24/16at 14:47; Start 05/24/16 at 12:30; Stop 05/24/16 at 13:29; Status DC Calcium Gluconate (Calcium Gluconate Inj) 1 gm ONCE ONCE SLOW IVP Last administered on 05/24/16at 14:40; Start 05/24/16 at 13:45; Stop 05/24/16 at 13 :46; Status DC Insulin Human Regular (NovoLIN R INJ) 10 units ONCE ONCE IV PUSH Last administered on 05/24/16at 14:39; Start 05/24/16 at 14:00; Stop 05/24/16 at 14 :01; Status DC Dextrose (D50w (Vial) Inj) 50 ml ONCE ONCE IV PUSH Last administered on at 14:39; Start 05/24/16 at 13:45; Stop 05/24/16 at 13:46; Status DC Sodium Bicarbonate (Sodium Bicarbonate 8.4% Inj) 50 meq ONCE ONCE SLOW IVP Last administered on 05/24/16at 14:23; Start 05/24/16 at 13:45; Stop 05/24/16 at 13:46; Status DC Albuterol Sulfate (Albuterol Concentrated Neb) 10 mg ONCE ONCE INH Last administered on 05/24/16at 14:58; Start 05/24/16 at 13:45; Stop 05/24/16 at 13 :46; Status DC Sodium Polystyrene Sulfonate 15 gm 15 gm ONCE ONCE PO Last administered on at 14:18; Start 05/24/16 at 13:45; Stop 05/24/16 at 13:46; Status DC Sodium Chloride 1,000 ml @ 999 mls/hr BOLUS ONCE IV Last administered on at 14:40; Start 05/24/16 at 14:00; Stop 05/24/16 at 15:00; Status DC Sodium Chloride (NS 1000 ml Inj) 1,000 ml @ 150 mls/hr Q6H40M IV Last administered on 05/29/16at 02:20; Start 05/24/16 at 14:33; Stop 05/29/16 at 14 :38; Status DC IV Flush (NS Flush) 2 ml UNSCH PRN IV FLUSH FLUSH AFTER USING IV ACCESS; Start 05/24/16 at 14:45; Stop 06/13/16 at 09:19; Status DC IV Flush (NS Flush) 2 ml BID IV FLUSH Last administered on 06/12/16t 23:09; Start 05/24/16 at 21:00; Stop 06/13/16 at 09:19; Status DC Pantoprazole Sodium (Protonix Inj) 40 mg DAILY IV Last administered on at 08:47; Start 05/24/16 at 15:30; Stop 05/29/16 at 14:39; Status DC Albuterol/ Ipratropium (Duoneb Neb) 1 ampule Q2HR NEB PRN INH WHEEZING; Start 05/24/16 at 14:45 Miscellaneous Information 1 [id number] XX Last administered on 05/24/16at 17:09; Start 05/24/16 at 14:45 Chlorhexidine Gluconate (Chlorhexidine 2% Cloth) 3 pack Taper DAILY@04 TOP Last administered on 05/25/16at 04:00; Start 05/25/16 at 04:00; Stop 05/29/16 at 14:38; Status DC Chlorhexidine Gluconate 3 pack 3 pack UNSCH PRN TOP HYGIENIC CARE; Start 05/24 at 14:45; Stop 05/29/16 at 14:38; Status DC Cefepime HCl 500 mg/Sodium Chloride 100 ml @ 200 mls/hr Q24H IV Last administered on 05/25/16at 16:29; Start 05/24/16 at 16:00; Stop 05/26/16 at 12 :54; Status DC Pharmacy Profile Note (Coumadin Consult Pharmacy) 0 ml @ 0 mls/hr UNSCH OTHER ; Start 05/24/16 at 14:45 Insulin Aspart 1 1 Q6HR SQ Last administered on 06/16/16 13:09; Start at 15:30 Piperacillin Sod/ Tazobactam Sod 50 ml @ 100 mls/hr Q8H IV Last administered on 05/25/16at 05:24; Start 05/24/16 at 21:00; Stop 05/25/16 at 10:27; Status DC Pharmacy Profile Note (Vancomycin Consult Pharmacy) 0 ml @ 0 mls/hr UNSCH OTHER ; Start 05/24/16 at 16:15 Collagenase (Santyl Oint) 1 applic DAILY TOP Last administered on 06/17/16 08: 14; Start 05/25/16 at 09:00 Miscellaneous Information SPECIFIC LAB TO BE DRAWN:VANCOMYCIN RANDOM DATE TO... ONCE ONCE XX ; Start 05/25/16 at 14:00; Stop 05/25/16 at 14:00; Status DC Acetaminophen/ Hydrocodone Bitart 1 tab 1 tab Q6H PRN PO PAIN Last administered on 1/2/17at 23:34; Start 05/24/16 at 23:45; Stop 06/13/16 at 09:21 ; Status DC Norepinephrine Bitartrate 250 ml @ 0 mls/hr TITRATE IV Last administered on at 01:07; Start 05/25/16 at 00:30; Stop 05/25/16 at 07:07; Status DC Piperacillin Sod/ Tazobactam Sod 50 ml @ 100 mls/hr Q8H IV Last administered on 05/29/16at 20:39; Start 05/25/16 at 13:00; Stop 05/29/16 at 23:06; Status DC Vancomycin HCl/ Sodium Chloride (Vancomycin Inj/ NS 250 ml Inj) 250 ml @ 250 mls/hr ONCE ONCE IV Last administered on 05/25/16at 11:49; Start 05/25/16 at 12:00; Stop 05/25/16 at 12:59; Status DC Miscellaneous Information SPECIFIC LAB TO BE DRAWN:RANDOM LEVEL DATE TO BE DR... ONCE ONCE XX Last administered on 05/26/16at 05:19; Start 05/26/16 at 06:00; Stop 05/26/16 at 06:01; Status DC Sodium Chloride (NS 250 ml Inj) 250 ml @ 15 mls/hr ONCE ONCE IV Last administered on 05/26/16at 09:40; Start 05/26/16 at 06:00; Stop 05/26/16 at 22 :39; Status DC Furosemide 20 mg 20 mg ONCE ONCE IV Last administered on 05/26/16at 12:37; Start 05/26/16 at 06:00; Stop 05/26/16 at 06:01; Status DC Vancomycin HCl/ Sodium Chloride (Vancomycin Inj/ NS 250 ml Inj) 262.5 ml @ 250 mls/hr Q24H IV Last administered on 05/29/16at 12:21; Start 05/26/16 at 12:00 ; Stop 05/29/16 at 15:10; Status DC Miscellaneous Information SPECIFIC LAB TO BE DAVID... ONCE ONCE XX ; Start 05/29 at 11:45; Stop 05/29/16 at 11:46; Status DC Cefepime HCl/ Sodium Chloride (Maxipime Inj/NS Inj) 100 ml @ 200 mls/hr Q24H IV Last administered on 05/27/16at 17:36; Start 05/26/16 at 16:00; Stop 05/28 at 09:04; Status DC Fluconazole (Diflucan) 200 mg DAILY PO Last administered on 06/12/16 08:58; Start 05/27/16 at 09:00; Stop 06/12/16 at 13:42; Status DC Warfarin Sodium (Coumadin) 5 mg DAILY@1600 PO Last administered on 05/29/16at 15:45; Start 05/27/16 at 16:00; Stop 05/31/16 at 11:40; Status DC Warfarin Sodium 0.5 mg 0.5 mg DAILY@16 PO Last administered on 05/29/16at 15:45 ; Start 05/27/16 at 16:00; Stop 05/31/16 at 11:37; Status DC Cefepime HCl/ Sodium Chloride (Maxipime Inj/NS Inj) 100 ml @ 200 mls/hr Q12H IV Last administered on 05/29/16at 08:46; Start 05/28/16 at 10:00; Stop 05/29 at 09:20; Status DC Warfarin Sodium (Coumadin) 7.5 mg ONCE ONCE PO Last administered on at 17:02; Start 05/28/16 at 16:00; Stop 05/28/16 at 16:01; Status DC Tamsulosin HCl (Flomax) 0.4 mg DAILY PO Last administered on 06/17/16 08:13; Start 05/28/16 at 15:00 Pantoprazole Sodium (Protonix) 40 mg DAILY PO Last administered on 06/17/16 08: 13; Start 05/30/16 at 09:00 Bumetanide 1 mg 1 mg ONCE ONCE IV PUSH Last administered on 05/29/16at 15:45; Start 05/29/16 at 15:00; Stop 05/29/16 at 15:01; Status DC Vancomycin HCl/ Sodium Chloride (Vancomycin Inj/ NS 250 ml Inj) 262.5 ml @ 262.5 mls/ hr Q18H IV Last administered on 05/30/16at 06:07; Start 05/30/16 at 06:00; Stop 05/30/16 at 11:27; Status DC Miscellaneous Information SPECIFIC LAB TO BE DAVID... ONCE ONCE XX ; Start 05/30 at 23:45; Stop 05/30/16 at 23:46; Status Cancel Vancomycin HCl/ Sodium Chloride (Vancomycin Inj/ NS 500 ml Inj) 515 ml @ 250 mls/hr Q18H IV Last administered on 06/01/16at 13:28; Start 05/31/16 at 00:00 ; Stop 06/01/16 at 14:39; Status DC Miscellaneous Information SPECIFIC LAB TO BE DRAWN:VANCOMYCIN TROUGH DATE TO... ONCE ONCE XX Last administered on 06/01/16at 13:27; Start 06/01/16 at 11:45; Stop 06/01/16 at 11:46; Status DC Warfarin Sodium (Coumadin) 4 mg DAILY@16 PO Last administered on 06/02/16at 16: 19; Start 05/31/16 at 16:00; Stop 06/05/16 at 11:08; Status DC Iohexol 100 ml 100 ml STK-MED ONCE IV Last administered on 06/01/16at 13:18; Start 06/01/16 at 13:18; Stop 06/01/16 at 13:19; Status DC Vancomycin HCl/ Sodium Chloride (Vancomycin Inj/ NS 500 ml Inj) 515 ml @ 250 mls/hr Q24H IV Last administered on 06/06/16at 13:52; Start 06/02/16 at 14:00 ; Stop 06/06/16 at 15:00; Status DC Miscellaneous Information SPECIFIC LAB TO BE DRAWN:VANCOMYCIN TROUGH DATE TO... ONCE ONCE XX Last administered on 06/04/16at 13:55; Start 06/04/16 at 13:45; Stop 06/04/16 at 13:46; Status DC Miscellaneous Information SPECIFIC LAB TO BE DAVID... ONCE ONCE XX Last administered on 06/06/16at 13:45; Start 06/06/16 at 13:45; Stop 06/06/16 at 13 :46; Status DC Warfarin Sodium 3 mg 3 mg DAILY@16 PO Last administered on 06/08/16at 15:40; Start 06/05/16 at 16:00; Stop 06/13/16 at 09:27; Status DC Vancomycin HCl/ Sodium Chloride (Vancomycin Inj/ NS 500 ml Inj) 517.5 ml @ 250 mls/hr Q36H IV Last administered on 06/12/16 18:18; Start 06/08/16 at 06:00; Stop 06/12/16 at 19:09; Status DC Miscellaneous Information SPECIFIC LAB TO BE DRAWN:VANCOMYCIN TROUGH DATE TO... ONCE ONCE XX Last administered on 06/12/16 17:45; Start 06/12/16 at 17:45; Stop 06/12/16 at 17:46; Status DC Gadodiamide (Omniscan Pf Inj) 22 ml STK-MED ONCE IV Last administered on at 10:21; Start 06/07/16 at 10:21; Stop 06/07/16 at 10:22; Status DC Phytonadione 5 mg 5 mg ONCE ONCE SQ Last administered on 06/11/16 06:30; Start 06/11/16 at 06:30; Stop 06/11/16 at 06:31; Status DC Sodium Chloride (NS 250 ml Inj) 250 ml @ 15 mls/hr ONCE ONCE IV Last administered on 06/11/16 00:00; Start 06/11/16 at 15:00; Stop 06/12/16 at 07:39; Status DC Acetaminophen (Tylenol) 650 mg Q4H PRN PO SEE LABEL COMMENTS; Start 06/11/16 at 15:00; Stop 06/11/16 at 19:01; Status DC Diphenhydramine HCl (Benadryl) 25 mg Q4H PRN PO SEE LABEL COMMENTS; Start at 15:00; Stop 06/11/16 at 19:01; Status DC Furosemide (Lasix Inj) 20 mg ONCE ONCE IV Last administered on 06/11/16 04:00 ; Start 06/11/16 at 15:00; Stop 06/11/16 at 15:01; Status DC Phytonadione 5 mg 5 mg ONCE ONCE SQ Last administered on 06/12/16 08:56; Start 06/12/16 at 06:50; Stop 06/12/16 at 06:51; Status DC Vancomycin HCl/ Sodium Chloride (Vancomycin Inj/ NS 500 ml Inj) 515 ml @ 250 mls/hr Q24H IV ; Start 06/13/16 at 18:00; Status Cancel Miscellaneous Information SPECIFIC LAB TO BE DRAWN:VANCO TROUGH DATE TO BE DR... ONCE ONCE XX ; Start 06/14/16 at 17:45; Stop 06/14/16 at 17:46; Status Cancel Vancomycin HCl/ Sodium Chloride (Vancomycin Inj/ NS 500 ml Inj) 517.5 ml @ 250 mls/hr Q36H IV Last administered on 06/17/16 05:55; Start 06/14/16 at 06:00 Sugammadex Sodium (Bridion Inj) 200 mg STK-MED ONCE IV PUSH ; Start 06/13/16 at 06:53; Stop 06/13/16 at 07:00; Status DC Acetaminophen (Ofirmev Inj) 1,000 mg STK-MED ONCE IV ; Start 06/13/16 at 06:53; Stop 06/13/16 at 07:00; Status DC Vancomycin HCl 1000 mg 1,000 mg STK-MED ONCE .ROUTE Last administered on 07:52; Start 06/13/16 at 07:04; Stop 06/13/16 at 07:17; Status DC Cefazolin Sodium/ Dextrose (Ancef 2 Gm Premix) 50 ml @ As Directed STK-MED ONCE .ROUTE Last administered on 06/13/16 07:53; Start 06/13/16 at 07:04; Stop at 07:17; Status DC Bupivacaine HCl/ Epinephrine Bitart (Marcaine-Epi Pf 0.25% Inj) 30 ml STK-MED ONCE .ROUTE Last administered on 06/13/16 07:51; Start 06/13/16 at 07:04; Stop 06/13/16 at 07:17; Status DC Cefazolin Sodium (Ancef Inj) 1,000 mg STK-MED ONCE .ROUTE Last administered on 06/13/16 07:52; Start 06/13/16 at 07:04; Stop 06/13/16 at 07:17; Status DC Gentamicin Sulfate 240 mg 240 mg STK-MED ONCE .ROUTE ; Start 06/13/16 at 07:05; Stop 06/13/16 at 07:17; Status DC Sodium Chloride (NS 250 ml Inj) 250 ml @ As Directed STK-MED ONCE .ROUTE ; Start 06/13/16 at 07:05; Stop 06/13/16 at 07:17; Status DC Ketamine HCl (Ketalar Inj) 500 mg STK-MED ONCE .ROUTE ; Start 06/13/16 at 07:24; Stop 06/13/16 at 07:35; Status DC IV Flush (NS Flush) 2 ml UNSCH PRN IVF FLUSH AFTER USING IV ACCESS; Start at 09:15 IV Flush (NS Flush) 2 ml BID IVF Last administered on 06/17/16 08:13; Start 06/13/16 at 21:00 Acetaminophen/ Hydrocodone Bitart (Milo 10-325 Mg) 1 tab Q3H PRN PO PAIN LESS THAN 5 ON SCALE Last administered on 06/16/16 21:43; Start 06/13/16 at 09:15 Acetaminophen/ Hydrocodone Bitart (Milo 10-325 Mg) 2 tab Q6H PRN PO PAIN GREATER THAN/EQUAL TO 5 Last administered on 06/14/16 15:07; Start 06/13/16 at 09 :15 Gabapentin (Neurontin) 300 mg TID PO Last administered on 06/17/16 08:13; Start 06/13/16 at 13:00 Morphine Sulfate (Morphine Inj) 4 mg Q3H PRN IV PUSH break thru pain Last administered on 06/14/16 17:52; Start 06/13/16 at 09:15 Warfarin Sodium (Coumadin) 3 mg DAILY@16 PO Last administered on 06/16/16 15:51 ; Start 06/14/16 at 16:00 Albuterol Sulfate (*ALBUTEROL NEB PERIprocedure ONLY) 2.5 mg STK-MED ONCE NEB ; Start 06/13/16 at 09:29; Stop 06/13/16 at 09:30; Status DC Midazolam HCl (Versed Inj) 2 mg STK-MED ONCE .ROUTE ; Start 06/13/16 at 09:30; Stop 06/13/16 at 09:31; Status DC Miscellaneous Information ALL NURSING DEPARTME... UNSCH PRN XX SEE LABEL COMMENTS; Start 06/13/16 at 09:20; Stop 06/14/16 at 09:19; Status DC Miscellaneous Information SPECIFIC LAB TO BE DRAWN:VANCO TROUGH DATE TO BE DRNoam.. ONCE ONCE XX Last administered on 06/14/16 05:54; Start 06/14/16 at 05:45 ; Stop 06/14/16 at 05:46; Status DC Propofol (Diprivan 200 Mg/20 ml Inj) 200 mg STK-MED ONCE IV ; Start 06/13/16 at 12:00; Stop 06/14/16 at 10:19; Status DC Ondansetron HCl 4 mg 4 mg STK-MED ONCE IV PUSH ; Start 06/13/16 at 12:00; Stop at 10:19; Status DC Lactated Ringer's (Lr 1000 ml Inj) 1,000 ml @ As Directed STK-MED ONCE IV ; Start 06/13/16 at 12:00; Stop 06/14/16 at 10:19; Status DC Ephedrine Sulfate (ePHEDrine/NS 50 MG/5 ML SYR) 50 mg STK-MED ONCE IV ; Start at 12:00; Stop 06/14/16 at 10:19; Status DC Phenylephrine HCl (Neosynephrine/ NS 1000 Mcg/10ml Syr) 1,000 mcg STK-MED ONCE IV ; Start 06/13/16 at 12:00; Stop 06/14/16 at 10:19; Status DC Miscellaneous Information SPECIFIC LAB TO BE DRAWN:VANCOMYCIN TROUGH DATE TO... ONCE ONCE XX Last administered on 06/17/16 05:55; Start 06/17/16 at 05:45; Stop 06/17/16 at 05:46; Status DC Acetaminophen (Ofirmev Inj) 650 mg ONCE ONCE IV Last administered on 06/15/16 01:23; Start 06/15/16 at 01:15; Stop 06/15/16 at 01:16; Status DC Warfarin Sodium 2 mg 2 mg ONCE PO Last administered on 06/15/16 18:10; Start at 16:00; Stop 06/15/16 at 21:00; Status DC Sodium Chloride (NS 1000 ml Inj) 1,000 ml @ 70 mls/hr [id number] IV Last administered on 06/16/16 02:40; Start 06/15/16 at 11:38; Stop 06/16/16 at 09:35; Status DC Aspirin (Aspirin Chew) 162 mg NOW STAT PO Last administered on 06/15/16 12:27 ; Start 06/15/16 at 12:16; Stop 06/15/16 at 12:21; Status DC Atorvastatin Calcium 20 mg 20 mg HS PO Last administered on 06/16/16 21:43; Start 06/15/16 at 21:00 Sodium Chloride 1,000 ml @ 999 mls/hr BOLUS ONCE IV Last administered on 15:14; Start 06/15/16 at 12:30; Stop 06/15/16 at 13:30; Status DC Sodium Chloride 250 ml @ 15 mls/hr ONCE ONCE IV Last administered on 12:33; Start 06/16/16 at 09:30; Stop 06/17/16 at 02:09; Status DC Ceftriaxone Sodium 1000 mg/ Sodium Chloride 100 ml @ 200 mls/hr Q24H IV Last administered on 06/16/16 12:33; Start 06/16/16 at 10:00; Stop 06/16/16 at 17:43; Status DC Piperacillin Sod/ Tazobactam Sod (Zosyn 3.375 Gm Premix) 50 ml @ 100 mls/hr Q6H IV Last administered on 06/17/16 08:13; Start 06/16/16 at 20:00 A/P Assessment and Plan A/P s/p left AKA - Post surgical management post operative pain rehabilitation as per surgical service - continue IV Abx per ID. Appreciate rehabilitation medicine's recommendations concerning long-term recommendations in rehabilitation and improvement of ADL Acute kidney injury and now improved with hydration Adjust vancomycin dosing start IV fluid hydration. Previous Sepsis on admission. Resolved. - Initially thought to be secondary to Natalie UTI, however most likely secondary to osteomyelitis. Acute Anemia. Currently asymptomatic -Slow decline. Likely anemia of inflammation - - s/p PRBC transfusion with improved H/H. -GI consult appreciated; no plan for endoscopy at this time. Type 2 diabetes. Overall Control. Continue sliding scale insulin. Atrial fibrillation. Currently heart rate is controlled Held anticoagulation for BKA. Restarting warfarin at 3.0, no additional bolus to be given due to decrease in hemoglobin. PT/INR monitoring. Diabetic neuropathy. Chronic. Continue gabapentin. Tobaccoism. Recommend cessation. Hypertension and now borderline hypotensive due to infection. Hold all antihypertensives and on fluid hydration. UTI. On admission with Natalie glabrata. Status post diflucan. DVT Prophylaxis. Coumadin restarted by Will need to monitor closely the hemoglobin. Ronn Pugh MD Jun 17, 2016 11:31
--- NOTE | 2016-06-17 12:16 | PD.POD ---
Subjective Podiatric Problems RLE posterior ulcer. Pain scale used: 0-10 numeric scale Pain score: 3 Past Med/Surg/Social History Social History Smoking Status: Never Smoker Objective Vital Signs Vital Signs Date Time Temp Pulse Resp B/P Pulse Ox O2 Delivery O2 Flow Rate FiO2 06/17/16 09:30 96 Nasal Cannula 2.00 06/17/16 08:52 Nasal Cannula 2.00 06/17/16 08:00 97.0 84 20 113/66 97 06/17/16 01:32 98.0 82 20 110/70 96 06/17/16 01:20 98.0 85 18 116/62 100 06/16/16 22:35 97.9 86 18 118/57 98 06/16/16 22:20 97.8 85 18 116/56 100 06/16/16 21:45 97.8 86 18 112/57 100 06/16/16 21:36 96 Nasal Cannula 2.00 06/16/16 20:00 96 06/16/16 20:00 Nasal Cannula 2.00 06/16/16 20:00 97.9 83 18 108/66 95 06/16/16 18:31 97.8 83 20 108/66 100 06/16/16 18:24 98.2 83 20 107/59 100 06/16/16 17:45 98.2 86 20 103/62 100 06/16/16 16:00 97.8 90 20 105/56 99 Coded Allergies: *MDRO Multi-Drug Resistant Organism (Verified Adverse Reaction, Unknown, MRSA, 05/29/16) MRSA (toe wound) - 01/27/16; (foot) - 05/24/16 MRSA PCR Screen POSITIVE - 05/26/16 Other Results Laboratory Tests Test 06/11/16 06/14/16 06/15/16 06/16/16 17:09 05:18 12:24 04:30 Direct Antiglobulin Test NEGATIVE (Yudi) Antibody Identification Non-Specific Agglutinin Routine Panel Pathologist Interp Vancomycin Level Trough 17.5 MCG/ML Activated Partial 31.4 SEC Thromboplast Time Fibrinogen 541 mg/dL Hemoglobin A1c 4.9 % Urine Color YELLOW Urine Turbidity CLOUDY Urine pH 5.0 Urine Specific [place] 1.020 Urine Protein 30 mg/dL Urine Glucose (UA) NEG mg/dL Urine Ketones 10 mg/dL Urine Occult Blood SMALL Urine Nitrite NEG Urine Bilirubin NEG Urine Urobilinogen LESS THAN 2.0 MG/DL Urine Leukocyte Esterase LARGE Urine RBC 99 /hpf Urine WBC /hpf Urine WBC Clumps MANY Urine Bacteria FEW /hpf Urine Mucus FEW /lpf Urine Yeast (Budding) MANY Microscopic Urinalysis Comment CULTURE INDICATED Test 06/16/16 06/16/16 06/17/16 06/17/16 05:31 14:41 05:20 06:20 Triglycerides Level 97 MG/DL Cholesterol Level 107 MG/DL LDL Cholesterol 56 MG/DL HDL Cholesterol 32.1 MG/DL Cholesterol/HDL Ratio 3.33 RATIO Blood Type A POSITIVE Antibody Screen POSITIVE Crossmatch Leukocyte-Reduced Red Blood Cells Blood Bank Comment White Blood Count 7.4 TH/MM3 Red Blood Count 2.92 MIL/MM3 Hemoglobin 9.2 GM/DL Hematocrit 26.1 % Mean Corpuscular Volume 89.4 FL Mean Corpuscular Hemoglobin 31.4 PG Mean Corpuscular Hemoglobin 35.1 % Concent Red Cell Distribution Width 16.6 % Platelet Count 213 TH/MM3 Mean Platelet Volume 8.5 FL Neutrophils (%) (Auto) 66.9 % Lymphocytes (%) (Auto) 17.4 % Monocytes (%) (Auto) 10.6 % Eosinophils (%) (Auto) 3.7 % Basophils (%) (Auto) 1.4 % Neutrophils # (Auto) 5.0 TH/MM3 Lymphocytes # (Auto) 1.3 TH/MM3 Monocytes # (Auto) 0.8 TH/MM3 Eosinophils # (Auto) 0.3 TH/MM3 Basophils # (Auto) 0.1 TH/MM3 CBC Comment DIFF FINAL Differential Comment Prothrombin Time 12.7 SEC Prothromb Time International 1.1 RATIO Ratio Sodium Level 138 MEQ/L Potassium Level 4.0 MEQ/L Chloride Level 102 MEQ/L Carbon Dioxide Level 29.8 MEQ/L Anion Gap 6 MEQ/L Blood Urea Nitrogen 19 MG/DL Creatinine 1.32 MG/DL Estimat Glomerular Filtration 54 ML/MIN Rate Random Glucose 111 MG/DL Calcium Level 8.4 MG/DL Exam-Podiatry Dermatological Exam Ulcers: Location/Measurements RLE: + ulceration to the posterior calf with exposed muscle and achilles tendon. Approximately 10 L x 4 cm W , no facia exposed. 100% granular base proximally with stringy Achilles tendon exposed, yellow in nature. Right lateral heel with 2x2 ulceration, no exposed bone or tendon, fibrogranular. No erythema, no edema and no acute soi. LE is warm to warm proximal to distal. Muscle strength is +4/5 Assessment & Plan Diagnosis: (1) Wound of lower extremity Status: Acute (2) Diabetic foot ulcers Status: Chronic A/P RX: Add Santyl 0.5% oint qod and daily dressing change., right leg posterior wound. RX: Add to pillow offloading to the posterior calf proximal to the wound and distal as well. Maintain Multipodos boot, R. Patient at risk for limb loss given PVD and contralateral leg loss. Dr Anaya will begin coverage 06/19/16 Problem Qualifiers (1) Diabetic foot ulcers: Nicole Leblanc DPM Jun 17, 2016 12:16
--- NOTE | 2016-06-17 14:42 | HHI.GIFU ---
Subjective Remarks Resting in bed. No active bleeding. Tolerating diet. (Joelle Lyon) Objective Vitals I&O Vital Signs Date Time Temp Pulse Resp B/P Pulse Ox O2 Delivery O2 Flow Rate FiO2 06/17/16 12:00 97.3 84 20 114/59 99 06/17/16 09:30 96 Nasal Cannula 2.00 06/17/16 08:52 Nasal Cannula 2.00 06/17/16 08:00 97.0 84 20 113/66 97 06/17/16 01:32 98.0 82 20 110/70 96 06/17/16 01:20 98.0 85 18 116/62 100 06/16/16 22:35 97.9 86 18 118/57 98 06/16/16 22:20 97.8 85 18 116/56 100 06/16/16 21:45 97.8 86 18 112/57 100 06/16/16 21:36 96 Nasal Cannula 2.00 06/16/16 20:00 96 06/16/16 20:00 Nasal Cannula 2.00 06/16/16 20:00 97.9 83 18 108/66 95 06/16/16 18:31 97.8 83 20 108/66 100 06/16/16 18:24 98.2 83 20 107/59 100 06/16/16 17:45 98.2 86 20 103/62 100 06/16/16 16:00 97.8 90 20 105/56 99 I/O 06/16/16 06/16/16 06/16/16 06/17/16 06/17/16 06/17/16 07:00 15:00 23:00 07:00 15:00 23:00 Intake Total 220 ml 3613 ml 750 ml Output Total 525 ml 800 ml Balance -305 ml 2813 ml 750 ml Intake Oral 220 ml 720 ml 750 ml IV Total 2893 ml Output Urine Total 525 ml 800 ml # Bowel Movements 0 1 Laboratory Laboratory Tests Test 06/16/16 06/17/16 06/17/16 14:41 05:20 06:20 Blood Type A POSITIVE Antibody Screen POSITIVE Crossmatch Leukocyte-Reduced Red Blood Cells Blood Bank Comment White Blood Count 7.4 Red Blood Count 2.92 Hemoglobin 9.2 Hematocrit 26.1 Mean Corpuscular Volume 89.4 Mean Corpuscular Hemoglobin 31.4 Mean Corpuscular Hemoglobin 35.1 Concent Red Cell Distribution Width 16.6 Platelet Count 213 Mean Platelet Volume 8.5 Neutrophils (%) (Auto) 66.9 Lymphocytes (%) (Auto) 17.4 Monocytes (%) (Auto) 10.6 Eosinophils (%) (Auto) 3.7 Basophils (%) (Auto) 1.4 Neutrophils # (Auto) 5.0 Lymphocytes # (Auto) 1.3 Monocytes # (Auto) 0.8 Eosinophils # (Auto) 0.3 Basophils # (Auto) 0.1 CBC Comment DIFF FINAL Differential Comment Prothrombin Time 12.7 Prothromb Time International 1.1 Ratio Sodium Level 138 Potassium Level 4.0 Chloride Level 102 Carbon Dioxide Level 29.8 Anion Gap 6 Blood Urea Nitrogen 19 Creatinine 1.32 Estimat Glomerular Filtration 54 Rate Random Glucose 111 Calcium Level 8.4 Vancomycin Level Trough 16.3 Date/Time Procedure Status Source Growth 06/16/16 04:30 Urine Culture - Preliminary Resulted Urine Clean Catch Yeast Species Imaging Last Impressions Brain MRI 06/15/16 1143 Signed Impressions: Service Date/Time: June 12:49 - CONCLUSION: 1. Cerebral atrophy and extensive chronic ischemic small vessel vasculopathy. 2. No acute infarction. Subhash Arteaga MD Chest X-Ray 06/15/16 0000 Signed Impressions: Service Date/Time: June 12:12 - CONCLUSION: Bilateral mainly basilar infiltrates and bilateral effusions Bret Vidal MD Carotid Artery Ultrasound 06/15/16 0000 Signed Impressions: Service Date/Time: June 18:56 - CONCLUSION: 1. Bilateral carotid bifurcation atherosclerosis, moderate on the right and mild on the left. No hemodynamically significant narrowing on either side. 2. Limited study and the vertebral arteries are not well-visualized today. They had antegrade flow within them on the prior ultrasound. Bret Truong MD Foot MRI 06/07/16 0000 Signed Impressions: Service Date/Time: Tuesday, June 07, 2016 09:34 - CONCLUSION: 1. Deep soft tissue ulcer of the midfoot and with associated osteomyelitis of the plantar/lateral aspect of the fourth metatarsal base and mid to distal cuboid. Please see above. Fifth metatarsal previously resected. 2. Second toe amputation since the prior MRI. Indurated soft tissues and focal cortical destruction seen of the second metatarsal head remnant. No deep osteomyelitis of the second metatarsal. 3. No soft tissue abscesses are demonstrated. 4. Apparent cellulitis of the heel pad. No calcaneal osteomyelitis demonstrated. Bret Truong MD Ankle MRI 06/07/16 0000 Signed Impressions: Service Date/Time: Tuesday, June 07, 2016 09:34 - CONCLUSION: 1. No evidence of osteomyelitis. 2. Old healed fracture of the distal fibula. 3. Subcutaneous nonspecific edema. Juan Bonilla MD Upper Extremity Ultrasound 06/05/16 0000 Signed Impressions: Service Date/Time: Sunday, June 05, 2016 20:02 - CONCLUSION: Normal examination. K. Charly Izaguirre MD Aorta w/Runoff CTA 06/01/16 0000 Signed Impressions: Service Date/Time: May 12:13 - CONCLUSION: 1. Heavily diseased but adequate in flow down to the level of the groin bilaterally. 2. 3. Right le. Diffusely diseased superficial femoral artery with multiple areas of moderate and scattered areas of high grade stenosis. The popliteal is diseased but adequate in caliber. Distally, there is single vessel runoff into the foot via the anterior tibial. 5. 6. Left le. Heavily diseased superficial femoral with scattered areas of moderate and high grade stenosis. The popliteal is heavily diseased as well. Distally, there is occlusion of the origin of all 3 trifurcation vessels. Eventually, there is reconstitution of the anterior tibial and posterior tibial. Aric Cazares MD Head CT 05/24/16 1217 Signed Impressions: Service Date/Time: Tuesday, May 24, 2016 12:55 - CONCLUSION: 1. No acute intracranial abnormality. 2. Atrophy. 3. Chronic small vessel ischemic change. Juvenal Jarquin Jr., MD Physical Exam HEENT: Normocephalic; atraumatic; no jaundice. CHEST: CTA. CARDIAC: RRR. ABDOMEN: Soft, nondistended, nontender; no hepatosplenomegaly; bowel sounds are present in all four quadrants. EXTREMITIES: No clubbing, cyanosis, or edema. SKIN: Normal; no rash; no jaundice. GENOMICS SCIENTIST: No focal deficits; alert and oriented times three. (Joelle Lyon) Assessment and Plan Plan ASSESSMENT: - Chronic Anemia. He is being worked up for possible TIA. He is on Coumadin. EGD on (05/09/16)--->reflux esophagitis, small hiatal hernia, gastritis, bx showed barrettes. He never had a colonoscopy before. No obvious active bleeding. S/P 5 units PRBC. HH 9.2/26.1. He is not having any obvious active GI bleeding and he is not stable for colonoscopy at this time secondary to recent AKA, risk of contamination. - TIA. Neurology on the case, work up in progress - Osteomyelitis of left ankle S/P AKA (06/13/16) - Atrial fibrillation. on Coumadin - PVD, DM, CHF, Depression, COPD, HTN per primary PLAN: - SUSAN - Monitor HH - Transfuse as needed - Would hold on colonoscopy at this time secondary to recent AKA and risk of contamination - Pt seen and examined by Dr. Stevens and myself and this note is written on his behalf (Joelle Lyon) Physician Comments atient was seen and examined, agree with above note. no colonoscopy now, maybe in a week. continue supportive care and PRBC if needed. (Dayna Stevens MD) Joelle Lyon Jun 17, 2016 14:42 Dayna Stevens MD Jun 17, 2016 15:04
[2016-06-17] MEDS: WARFARIN SOD 3 MG TAB PO SCH (16:05)
[2016-06-17] MEDS: ATORVASTATIN 20 MG TAB PO SCH (20:43)
[2016-06-18] VITALS (9 sets, daily range): BP systolic 100–117; BP diastolic 53–64; PULSE 74–84; RESP 18–24; TEMP 97.9–99.2; O2SAT 94–99
[2016-06-18] MEDS: PIPERACIL-TAZO 3.375 GM PREMIX 50 ML IV SCH ×4 (02:00→20:17)
[2016-06-18] MEDS: INSULIN ASPART SUPPLEMENTAL SCALE SQ SCH ×3 (05:00→17:19)
[2016-06-18] MEDS: TAMSULOSIN HCL 0.4 MG CAP PO SCH (08:19)
[2016-06-18] MEDS: GABAPENTIN 300 MG CAP PO SCH ×3 (08:19→17:18)
[2016-06-18] MEDS: PANTOPRAZOLE SOD 40 MG DELAYED RELEASE TAB PO SCH (08:19)
[2016-06-18] MEDS: SODIUM CHLORIDE 0.9% FLUSH 5 ML FLUSH IVF SCH ×2 (08:21→20:17)
[2016-06-18] MEDS: COLLAGENASE OINT 30 GM TUBE TOP SCH (08:23)
[2016-06-18 08:52] LABS: INTERNATIONAL NORMALIZED RATIO 1.4 RATIO; PROTHROMBIN TIME - PATIENT 15.6 SEC (9.8-11.6)
[2016-06-18] MEDS: ACETAMINOPHEN/HYDROcodone 325 MG/10 MG TAB PO PRN ×2 (09:50→17:18)
--- NOTE | 2016-06-18 13:08 | HHI.PR ---
Subjective Remarks in no acute distress. denies pain. afebrile. Objective Vitals Vital Signs Date Time Temp Pulse Resp B/P Pulse Ox O2 Delivery O2 Flow Rate FiO2 06/18/16 12:00 98.2 75 22 108/56 98 06/18/16 11:51 Nasal Cannula 2.00 06/18/16 11:06 99 Nasal Cannula 2.00 06/18/16 08:00 97.9 82 20 104/59 99 06/18/16 04:00 98.9 82 20 114/64 94 06/18/16 00:10 99.2 84 24 100/60 95 06/17/16 22:44 95 Nasal Cannula 2.00 06/17/16 21:00 Nasal Cannula 2.00 06/17/16 20:00 97.9 88 18 120/63 96 06/17/16 20:00 92 06/17/16 16:00 99.0 82 20 122/56 99 I/O 06/17/16 06/17/16 06/17/16 06/18/16 06/18/16 06/18/16 07:00 15:00 23:00 07:00 15:00 23:00 Intake Total 240 ml 120 ml Output Total 1000 ml 500 ml 300 ml Balance -1000 ml -260 ml -180 ml Intake Oral 240 ml 120 ml Output Urine Total 1000 ml 500 ml 300 ml # Bowel Movements 0 Result Diagram: 06/17/16 0520 06/18/16 0716 Imaging Last Impressions Brain MRI 06/15/16 1143 Signed Impressions: Service Date/Time: June 12:49 - CONCLUSION: 1. Cerebral atrophy and extensive chronic ischemic small vessel vasculopathy. 2. No acute infarction. Subhash Arteaga MD Chest X-Ray 06/15/16 0000 Signed Impressions: Service Date/Time: June 12:12 - CONCLUSION: Bilateral mainly basilar infiltrates and bilateral effusions Bret Vidal MD Carotid Artery Ultrasound 06/15/16 0000 Signed Impressions: Service Date/Time: June 18:56 - CONCLUSION: 1. Bilateral carotid bifurcation atherosclerosis, moderate on the right and mild on the left. No hemodynamically significant narrowing on either side. 2. Limited study and the vertebral arteries are not well-visualized today. They had antegrade flow within them on the prior ultrasound. Bret Truong MD Foot MRI 06/07/16 0000 Signed Impressions: Service Date/Time: Tuesday, June 07, 2016 09:34 - CONCLUSION: 1. Deep soft tissue ulcer of the midfoot and with associated osteomyelitis of the plantar/lateral aspect of the fourth metatarsal base and mid to distal cuboid. Please see above. Fifth metatarsal previously resected. 2. Second toe amputation since the prior MRI. Indurated soft tissues and focal cortical destruction seen of the second metatarsal head remnant. No deep osteomyelitis of the second metatarsal. 3. No soft tissue abscesses are demonstrated. 4. Apparent cellulitis of the heel pad. No calcaneal osteomyelitis demonstrated. Bret Truong MD Ankle MRI 06/07/16 0000 Signed Impressions: Service Date/Time: Tuesday, June 07, 2016 09:34 - CONCLUSION: 1. No evidence of osteomyelitis. 2. Old healed fracture of the distal fibula. 3. Subcutaneous nonspecific edema. Juan Bonilla MD Upper Extremity Ultrasound 06/05/16 0000 Signed Impressions: Service Date/Time: Sunday, June 05, 2016 20:02 - CONCLUSION: Normal examination. Don Izaguirre MD Aorta w/Runoff CTA 06/01/16 0000 Signed Impressions: Service Date/Time: May 12:13 - CONCLUSION: 1. Heavily diseased but adequate in flow down to the level of the groin bilaterally. 2. 3. Right le. Diffusely diseased superficial femoral artery with multiple areas of moderate and scattered areas of high grade stenosis. The popliteal is diseased but adequate in caliber. Distally, there is single vessel runoff into the foot via the anterior tibial. 5. 6. Left le. Heavily diseased superficial femoral with scattered areas of moderate and high grade stenosis. The popliteal is heavily diseased as well. Distally, there is occlusion of the origin of all 3 trifurcation vessels. Eventually, there is reconstitution of the anterior tibial and posterior tibial. Aric Cazares MD Head CT 05/24/16 1217 Signed Impressions: Service Date/Time: Tuesday, May 24, 2016 12:55 - CONCLUSION: 1. No acute intracranial abnormality. 2. Atrophy. 3. Chronic small vessel ischemic change. Juvenal Jarquin Jr., MD Objective Remarks GENERAL: This is a well-nourished, well-developed patient, in no apparent distress. CARDIOVASCULAR: Regular rate and regular rhythm without murmurs, gallops, or rubs. RESPIRATORY: Clear to auscultation. Breath sounds equal bilaterally. No wheezes , rales, or rhonchi. GASTROINTESTINAL: Abdomen soft, non-tender, nondistended. Normal, active bowel sounds MUSCULOSKELETAL: s/p left AKA NEURO: Alert & Oriented x4 to person, place, time, situation. Moves all ext x4 Procedures left AKA Medications and IVs Current Medications IV Flush 2 ml 2 ml UNSCH PRN IVF FLUSH AFTER USING IV ACCESS; Start 05/24/16 at 12:30; Stop 05/24/16 at 15:31; Status DC Sodium Chloride 1,000 ml @ 1,000 mls/hr Q1H IV Last administered on at 13:23; Start 05/24/16 at 12:17; Stop 05/24/16 at 13:16; Status DC Piperacillin Sod/ Tazobactam Sod 100 ml @ 200 mls/hr ONCE ONCE IV Last administered on 05/24/16at 13:23; Start 05/24/16 at 12:30; Stop 05/24/16 at 12 :59; Status DC Vancomycin HCl/ Sodium Chloride (Vancomycin Inj/ NS 250 ml Inj) 250 ml @ 250 mls/hr ONCE ONCE IV Last administered on 05/24/16at 14:47; Start 05/24/16 at 12:30; Stop 05/24/16 at 13:29; Status DC Calcium Gluconate (Calcium Gluconate Inj) 1 gm ONCE ONCE SLOW IVP Last administered on 05/24/16at 14:40; Start 05/24/16 at 13:45; Stop 05/24/16 at 13 :46; Status DC Insulin Human Regular (NovoLIN R INJ) 10 units ONCE ONCE IV PUSH Last administered on 05/24/16at 14:39; Start 05/24/16 at 14:00; Stop 05/24/16 at 14 :01; Status DC Dextrose (D50w (Vial) Inj) 50 ml ONCE ONCE IV PUSH Last administered on at 14:39; Start 05/24/16 at 13:45; Stop 05/24/16 at 13:46; Status DC Sodium Bicarbonate (Sodium Bicarbonate 8.4% Inj) 50 meq ONCE ONCE SLOW IVP Last administered on 05/24/16at 14:23; Start 05/24/16 at 13:45; Stop 05/24/16 at 13:46; Status DC Albuterol Sulfate (Albuterol Concentrated Neb) 10 mg ONCE ONCE INH Last administered on 05/24/16at 14:58; Start 05/24/16 at 13:45; Stop 05/24/16 at 13 :46; Status DC Sodium Polystyrene Sulfonate 15 gm 15 gm ONCE ONCE PO Last administered on at 14:18; Start 05/24/16 at 13:45; Stop 05/24/16 at 13:46; Status DC Sodium Chloride 1,000 ml @ 999 mls/hr BOLUS ONCE IV Last administered on at 14:40; Start 05/24/16 at 14:00; Stop 05/24/16 at 15:00; Status DC Sodium Chloride (NS 1000 ml Inj) 1,000 ml @ 150 mls/hr Q6H40M IV Last administered on 05/29/16at 02:20; Start 05/24/16 at 14:33; Stop 05/29/16 at 14 :38; Status DC IV Flush (NS Flush) 2 ml UNSCH PRN IV FLUSH FLUSH AFTER USING IV ACCESS; Start 05/24/16 at 14:45; Stop 06/13/16 at 09:19; Status DC IV Flush (NS Flush) 2 ml BID IV FLUSH Last administered on 06/12/16t 23:09; Start 05/24/16 at 21:00; Stop 06/13/16 at 09:19; Status DC Pantoprazole Sodium (Protonix Inj) 40 mg DAILY IV Last administered on at 08:47; Start 05/24/16 at 15:30; Stop 05/29/16 at 14:39; Status DC Albuterol/ Ipratropium (Duoneb Neb) 1 ampule Q2HR NEB PRN INH WHEEZING; Start 05/24/16 at 14:45 Miscellaneous Information 1 Q361D XX Last administered on 05/24/16at 17:09; Start 05/24/16 at 14:45 Chlorhexidine Gluconate (Chlorhexidine 2% Cloth) 3 pack Taper DAILY@04 TOP Last administered on 05/25/16at 04:00; Start 05/25/16 at 04:00; Stop 05/29/16 at 14:38; Status DC Chlorhexidine Gluconate 3 pack 3 pack UNSCH PRN TOP HYGIENIC CARE; Start 05/24 at 14:45; Stop 05/29/16 at 14:38; Status DC Cefepime HCl 500 mg/Sodium Chloride 100 ml @ 200 mls/hr Q24H IV Last administered on 05/25/16at 16:29; Start 05/24/16 at 16:00; Stop 05/26/16 at 12 :54; Status DC Pharmacy Profile Note (Coumadin Consult Pharmacy) 0 ml @ 0 mls/hr UNSCH OTHER ; Start 05/24/16 at 14:45 Insulin Aspart 1 1 Q6HR SQ Last administered on 06/18/16 11:38; Start at 15:30 Piperacillin Sod/ Tazobactam Sod 50 ml @ 100 mls/hr Q8H IV Last administered on 05/25/16at 05:24; Start 05/24/16 at 21:00; Stop 05/25/16 at 10:27; Status DC Pharmacy Profile Note (Vancomycin Consult Pharmacy) 0 ml @ 0 mls/hr UNSCH OTHER ; Start 05/24/16 at 16:15 Collagenase (Santyl Oint) 1 applic DAILY TOP Last administered on 06/18/16 08: 23; Start 05/25/16 at 09:00 Miscellaneous Information SPECIFIC LAB TO BE DRAWN:VANCOMYCIN RANDOM DATE TO... ONCE ONCE XX ; Start 05/25/16 at 14:00; Stop 05/25/16 at 14:00; Status DC Acetaminophen/ Hydrocodone Bitart 1 tab 1 tab Q6H PRN PO PAIN Last administered on 06/12/16 23:34; Start 05/24/16 at 23:45; Stop 06/13/16 at 09:21 ; Status DC Norepinephrine Bitartrate 250 ml @ 0 mls/hr TITRATE IV Last administered on at 01:07; Start 05/25/16 at 00:30; Stop 05/25/16 at 07:07; Status DC Piperacillin Sod/ Tazobactam Sod 50 ml @ 100 mls/hr Q8H IV Last administered on 05/29/16at 20:39; Start 05/25/16 at 13:00; Stop 05/29/16 at 23:06; Status DC Vancomycin HCl/ Sodium Chloride (Vancomycin Inj/ NS 250 ml Inj) 250 ml @ 250 mls/hr ONCE ONCE IV Last administered on 05/25/16at 11:49; Start 05/25/16 at 12:00; Stop 05/25/16 at 12:59; Status DC Miscellaneous Information SPECIFIC LAB TO BE DRAWN:RANDOM LEVEL DATE TO BE DR... ONCE ONCE XX Last administered on 05/26/16at 05:19; Start 05/26/16 at 06:00; Stop 05/26/16 at 06:01; Status DC Sodium Chloride (NS 250 ml Inj) 250 ml @ 15 mls/hr ONCE ONCE IV Last administered on 05/26/16at 09:40; Start 05/26/16 at 06:00; Stop 05/26/16 at 22 :39; Status DC Furosemide 20 mg 20 mg ONCE ONCE IV Last administered on 05/26/16at 12:37; Start 05/26/16 at 06:00; Stop 05/26/16 at 06:01; Status DC Vancomycin HCl/ Sodium Chloride (Vancomycin Inj/ NS 250 ml Inj) 262.5 ml @ 250 mls/hr Q24H IV Last administered on 05/29/16at 12:21; Start 05/26/16 at 12:00 ; Stop 05/29/16 at 15:10; Status DC Miscellaneous Information SPECIFIC LAB TO BE DAVID... ONCE ONCE XX ; Start 05/29 at 11:45; Stop 05/29/16 at 11:46; Status DC Cefepime HCl/ Sodium Chloride (Maxipime Inj/NS Inj) 100 ml @ 200 mls/hr Q24H IV Last administered on 05/27/16at 17:36; Start 05/26/16 at 16:00; Stop 05/28 at 09:04; Status DC Fluconazole (Diflucan) 200 mg DAILY PO Last administered on 06/12/16t 08:58; Start 05/27/16 at 09:00; Stop 06/12/16 at 13:42; Status DC Warfarin Sodium (Coumadin) 5 mg DAILY@1600 PO Last administered on 05/29/16at 15:45; Start 05/27/16 at 16:00; Stop 05/31/16 at 11:40; Status DC Warfarin Sodium 0.5 mg 0.5 mg DAILY@16 PO Last administered on 05/29/16at 15:45 ; Start 05/27/16 at 16:00; Stop 05/31/16 at 11:37; Status DC Cefepime HCl/ Sodium Chloride (Maxipime Inj/NS Inj) 100 ml @ 200 mls/hr Q12H IV Last administered on 05/29/16at 08:46; Start 05/28/16 at 10:00; Stop 05/29 at 09:20; Status DC Warfarin Sodium (Coumadin) 7.5 mg ONCE ONCE PO Last administered on at 17:02; Start 05/28/16 at 16:00; Stop 05/28/16 at 16:01; Status DC Tamsulosin HCl (Flomax) 0.4 mg DAILY PO Last administered on 06/18/16 08:19; Start 05/28/16 at 15:00 Pantoprazole Sodium (Protonix) 40 mg DAILY PO Last administered on 06/18/16 08: 19; Start 05/30/16 at 09:00 Bumetanide 1 mg 1 mg ONCE ONCE IV PUSH Last administered on 05/29/16at 15:45; Start 05/29/16 at 15:00; Stop 05/29/16 at 15:01; Status DC Vancomycin HCl/ Sodium Chloride (Vancomycin Inj/ NS 250 ml Inj) 262.5 ml @ 262.5 mls/ hr Q18H IV Last administered on 05/30/16at 06:07; Start 05/30/16 at 06:00; Stop 05/30/16 at 11:27; Status DC Miscellaneous Information SPECIFIC LAB TO BE DAVID... ONCE ONCE XX ; Start 05/30 at 23:45; Stop 05/30/16 at 23:46; Status Cancel Vancomycin HCl/ Sodium Chloride (Vancomycin Inj/ NS 500 ml Inj) 515 ml @ 250 mls/hr Q18H IV Last administered on 06/01/16at 13:28; Start 05/31/16 at 00:00 ; Stop 06/01/16 at 14:39; Status DC Miscellaneous Information SPECIFIC LAB TO BE DRAWN:VANCOMYCIN TROUGH DATE TO... ONCE ONCE XX Last administered on 06/01/16at 13:27; Start 06/01/16 at 11:45; Stop 06/01/16 at 11:46; Status DC Warfarin Sodium (Coumadin) 4 mg DAILY@16 PO Last administered on 06/02/16at 16: 19; Start 05/31/16 at 16:00; Stop 06/05/16 at 11:08; Status DC Iohexol 100 ml 100 ml STK-MED ONCE IV Last administered on 06/01/16at 13:18; Start 06/01/16 at 13:18; Stop 06/01/16 at 13:19; Status DC Vancomycin HCl/ Sodium Chloride (Vancomycin Inj/ NS 500 ml Inj) 515 ml @ 250 mls/hr Q24H IV Last administered on 06/06/16at 13:52; Start 06/02/16 at 14:00 ; Stop 06/06/16 at 15:00; Status DC Miscellaneous Information SPECIFIC LAB TO BE DRAWN:VANCOMYCIN TROUGH DATE TO... ONCE ONCE XX Last administered on 06/04/16at 13:55; Start 06/04/16 at 13:45; Stop 06/04/16 at 13:46; Status DC Miscellaneous Information SPECIFIC LAB TO BE DAVID... ONCE ONCE XX Last administered on 06/06/16at 13:45; Start 06/06/16 at 13:45; Stop 06/06/16 at 13 :46; Status DC Warfarin Sodium 3 mg 3 mg DAILY@16 PO Last administered on 06/08/16at 15:40; Start 06/05/16 at 16:00; Stop 06/13/16 at 09:27; Status DC Vancomycin HCl/ Sodium Chloride (Vancomycin Inj/ NS 500 ml Inj) 517.5 ml @ 250 mls/hr Q36H IV Last administered on 06/12/16 18:18; Start 06/08/16 at 06:00; Stop 06/12/16 at 19:09; Status DC Miscellaneous Information SPECIFIC LAB TO BE DRAWN:VANCOMYCIN TROUGH DATE TO... ONCE ONCE XX Last administered on 06/12/16 17:45; Start 06/12/16 at 17:45; Stop 06/12/16 at 17:46; Status DC Gadodiamide (Omniscan Pf Inj) 22 ml STK-MED ONCE IV Last administered on at 10:21; Start 06/07/16 at 10:21; Stop 06/07/16 at 10:22; Status DC Phytonadione 5 mg 5 mg ONCE ONCE SQ Last administered on 06/11/16 06:30; Start 06/11/16 at 06:30; Stop 06/11/16 at 06:31; Status DC Sodium Chloride (NS 250 ml Inj) 250 ml @ 15 mls/hr ONCE ONCE IV Last administered on 06/11/16 00:00; Start 06/11/16 at 15:00; Stop 06/12/16 at 07:39; Status DC Acetaminophen (Tylenol) 650 mg Q4H PRN PO SEE LABEL COMMENTS; Start 06/11/16 at 15:00; Stop 06/11/16 at 19:01; Status DC Diphenhydramine HCl (Benadryl) 25 mg Q4H PRN PO SEE LABEL COMMENTS; Start at 15:00; Stop 06/11/16 at 19:01; Status DC Furosemide (Lasix Inj) 20 mg ONCE ONCE IV Last administered on 06/11/16 04:00 ; Start 06/11/16 at 15:00; Stop 06/11/16 at 15:01; Status DC Phytonadione 5 mg 5 mg ONCE ONCE SQ Last administered on 06/12/16 08:56; Start 06/12/16 at 06:50; Stop 06/12/16 at 06:51; Status DC Vancomycin HCl/ Sodium Chloride (Vancomycin Inj/ NS 500 ml Inj) 515 ml @ 250 mls/hr Q24H IV ; Start 06/13/16 at 18:00; Status Cancel Miscellaneous Information SPECIFIC LAB TO BE DRAWN:VANCO TROUGH DATE TO BE DR... ONCE ONCE XX ; Start 06/14/16 at 17:45; Stop 06/14/16 at 17:46; Status Cancel Vancomycin HCl/ Sodium Chloride (Vancomycin Inj/ NS 500 ml Inj) 517.5 ml @ 250 mls/hr Q36H IV Last administered on 06/17/16 05:55; Start 06/14/16 at 06:00 Sugammadex Sodium (Bridion Inj) 200 mg STK-MED ONCE IV PUSH ; Start 06/13/16 at 06:53; Stop 06/13/16 at 07:00; Status DC Acetaminophen (Ofirmev Inj) 1,000 mg STK-MED ONCE IV ; Start 06/13/16 at 06:53; Stop 06/13/16 at 07:00; Status DC Vancomycin HCl 1000 mg 1,000 mg STK-MED ONCE .ROUTE Last administered on 07:52; Start 06/13/16 at 07:04; Stop 06/13/16 at 07:17; Status DC Cefazolin Sodium/ Dextrose (Ancef 2 Gm Premix) 50 ml @ As Directed STK-MED ONCE .ROUTE Last administered on 06/13/16 07:53; Start 06/13/16 at 07:04; Stop at 07:17; Status DC Bupivacaine HCl/ Epinephrine Bitart (Marcaine-Epi Pf 0.25% Inj) 30 ml STK-MED ONCE .ROUTE Last administered on 06/13/16 07:51; Start 06/13/16 at 07:04; Stop 06/13/16 at 07:17; Status DC Cefazolin Sodium (Ancef Inj) 1,000 mg STK-MED ONCE .ROUTE Last administered on 06/13/16 07:52; Start 06/13/16 at 07:04; Stop 06/13/16 at 07:17; Status DC Gentamicin Sulfate 240 mg 240 mg STK-MED ONCE .ROUTE ; Start 06/13/16 at 07:05; Stop 06/13/16 at 07:17; Status DC Sodium Chloride (NS 250 ml Inj) 250 ml @ As Directed STK-MED ONCE .ROUTE ; Start 06/13/16 at 07:05; Stop 06/13/16 at 07:17; Status DC Ketamine HCl (Ketalar Inj) 500 mg STK-MED ONCE .ROUTE ; Start 06/13/16 at 07:24; Stop 06/13/16 at 07:35; Status DC IV Flush (NS Flush) 2 ml UNSCH PRN IVF FLUSH AFTER USING IV ACCESS; Start at 09:15 IV Flush (NS Flush) 2 ml BID IVF Last administered on 06/18/16 08:21; Start 06/13/16 at 21:00 Acetaminophen/ Hydrocodone Bitart ([place] 10-325 Mg) 1 tab Q3H PRN PO PAIN LESS THAN 5 ON SCALE Last administered on 06/18/16 09:50; Start 06/13/16 at 09:15 Acetaminophen/ Hydrocodone Bitart ([place] 10-325 Mg) 2 tab Q6H PRN PO PAIN GREATER THAN/EQUAL TO 5 Last administered on 06/14/16 15:07; Start 06/13/16 at 09 :15 Gabapentin (Neurontin) 300 mg TID PO Last administered on 06/18/16 08:19; Start 06/13/16 at 13:00 Morphine Sulfate (Morphine Inj) 4 mg Q3H PRN IV PUSH break thru pain Last administered on 06/14/16 17:52; Start 06/13/16 at 09:15 Warfarin Sodium (Coumadin) 3 mg DAILY@16 PO Last administered on 06/17/16 16:05 ; Start 06/14/16 at 16:00 Albuterol Sulfate (*ALBUTEROL NEB PERIprocedure ONLY) 2.5 mg STK-MED ONCE NEB ; Start 06/13/16 at 09:29; Stop 06/13/16 at 09:30; Status DC Midazolam HCl (Versed Inj) 2 mg STK-MED ONCE .ROUTE ; Start 06/13/16 at 09:30; Stop 06/13/16 at 09:31; Status DC Miscellaneous Information ALL NURSING DEPARTME... UNSCH PRN XX SEE LABEL COMMENTS; Start 06/13/16 at 09:20; Stop 06/14/16 at 09:19; Status DC Miscellaneous Information SPECIFIC LAB TO BE DRAWN:[facility] TROUGH DATE TO BE DRNoam.. ONCE ONCE XX Last administered on 06/14/16 05:54; Start 06/14/16 at 05:45 ; Stop 06/14/16 at 05:46; Status DC Propofol (Diprivan 200 Mg/20 ml Inj) 200 mg STK-MED ONCE IV ; Start 06/13/16 at 12:00; Stop 06/14/16 at 10:19; Status DC Ondansetron HCl 4 mg 4 mg STK-MED ONCE IV PUSH ; Start 06/13/16 at 12:00; Stop at 10:19; Status DC Lactated Ringer's (Lr 1000 ml Inj) 1,000 ml @ As Directed STK-MED ONCE IV ; Start 06/13/16 at 12:00; Stop 06/14/16 at 10:19; Status DC Ephedrine Sulfate (ePHEDrine/NS 50 MG/5 ML SYR) 50 mg STK-MED ONCE IV ; Start at 12:00; Stop 06/14/16 at 10:19; Status DC Phenylephrine HCl (Neosynephrine/ NS 1000 Mcg/10ml Syr) 1,000 mcg STK-MED ONCE IV ; Start 06/13/16 at 12:00; Stop 06/14/16 at 10:19; Status DC Miscellaneous Information SPECIFIC LAB TO BE DRAWN:VANCOMYCIN TROUGH DATE TO... ONCE ONCE XX Last administered on 06/17/16 05:55; Start 06/17/16 at 05:45; Stop 06/17/16 at 05:46; Status DC Acetaminophen (Ofirmev Inj) 650 mg ONCE ONCE IV Last administered on 06/15/16 01:23; Start 06/15/16 at 01:15; Stop 06/15/16 at 01:16; Status DC Warfarin Sodium 2 mg 2 mg ONCE PO Last administered on 06/15/16 18:10; Start at 16:00; Stop 06/15/16 at 21:00; Status DC Sodium Chloride (NS 1000 ml Inj) 1,000 ml @ 70 mls/hr [id number] IV Last administered on 06/16/16 02:40; Start 06/15/16 at 11:38; Stop 06/16/16 at 09:35; Status DC Aspirin (Aspirin Chew) 162 mg NOW STAT PO Last administered on 06/15/16 12:27 ; Start 06/15/16 at 12:16; Stop 06/15/16 at 12:21; Status DC Atorvastatin Calcium 20 mg 20 mg HS PO Last administered on 06/17/16 20:43; Start 06/15/16 at 21:00 Sodium Chloride 1,000 ml @ 999 mls/hr BOLUS ONCE IV Last administered on 15:14; Start 06/15/16 at 12:30; Stop 06/15/16 at 13:30; Status DC Sodium Chloride 250 ml @ 15 mls/hr ONCE ONCE IV Last administered on 12:33; Start 06/16/16 at 09:30; Stop 06/17/16 at 02:09; Status DC Ceftriaxone Sodium 1000 mg/ Sodium Chloride 100 ml @ 200 mls/hr Q24H IV Last administered on 06/16/16 12:33; Start 06/16/16 at 10:00; Stop 06/16/16 at 17:43; Status DC Piperacillin Sod/ Tazobactam Sod (Zosyn 3.375 Gm Premix) 50 ml @ 100 mls/hr Q6H IV Last administered on 06/18/16 08:19; Start 06/16/16 at 20:00 A/P Assessment and Plan A/P s/p left AKA - Post surgical management post operative pain rehabilitation as per surgical service - continue IV Abx per ID. Appreciate rehabilitation medicine's recommendations concerning long-term recommendations in rehabilitation and improvement of ADL Acute kidney injury Adjust vancomycin dosing -continue IV fluid hydration.monitor renal function. Previous Sepsis on admission. Resolved. - Initially thought to be secondary to Natalie UTI, however most likely secondary to osteomyelitis. Acute Anemia. Currently asymptomatic -Slow decline. Likely anemia of inflammation - - s/p PRBC transfusion with improved H/H. -GI consult appreciated; no plan for endoscopy at this time. Type 2 diabetes. Overall Control. Continue sliding scale insulin. Atrial fibrillation. Currently heart rate is controlled. Restarted warfarin at 3.0, no additional bolus to be given due to decrease in hemoglobin. PT/INR monitoring. Diabetic neuropathy. Chronic. Continue gabapentin. Tobaccoism. Recommend cessation. Hypertension and now borderline hypotensive due to infection. Hold all antihypertensives and on fluid hydration. UTI. On admission with Natalie glabrata. Status post diflucan. DVT Prophylaxis. Coumadin restarted . Ronn Pugh MD Jun 18, 2016 13:08
[2016-06-18] MEDS ORDERED: SODIUM CHLORID 0.9% 500 ML INJ 500 ML IV ONE (13:15)
[2016-06-18] MEDS: WARFARIN SOD 3 MG TAB PO SCH (15:41)
[2016-06-18] MEDS: VANCOMYCIN INJ 1,750 MG in SODIUM CHLORID 0.9% 500 ML INJ 500 ML IV SCH (17:19)
[2016-06-18] MEDS: ATORVASTATIN 20 MG TAB PO SCH (20:17)
[2016-06-19] VITALS (7 sets, daily range): BP systolic 104–145; BP diastolic 60–72; PULSE 77–94; RESP 16–20; TEMP 98–99.1; O2SAT 97–99
[2016-06-19] MEDS: PIPERACIL-TAZO 3.375 GM PREMIX 50 ML IV SCH ×4 (02:26→21:48)
[2016-06-19] MEDS: INSULIN ASPART SUPPLEMENTAL SCALE SQ SCH ×4 (05:43→18:00)
[2016-06-19 06:04] LABS: AUTOMATED NEUTROPHIL # 5.4 TH/MM3 (1.8-7.7); BASOPHIL # 0.1 TH/MM3 (0-0.2); BASOPHIL % 1.4 % (0.0-2.0); EOSINOPHIL # 0.3 TH/MM3 (0-0.4); HEMATOCRIT 27.4 % (39.0-51.0); HEMO FLAGS DIFF FINAL; LYMPH % 14.7 % (9.0-44.0); LYMPHOCYTE # 1.2 TH/MM3 (1.0-4.8); MEAN CELL VOLUME 90.8 FL (80.0-100.0); MEAN CORPUSCULAR HEMOGLOBIN 30.9 PG (27.0-34.0); MEAN CORPUSCULAR HGB CONC 34.1 % (32.0-36.0); MONO % 11.8 % (0.0-8.0); NEUT % 68.1 % (16.0-70.0); PLATELET COUNT 203 TH/MM3 (150-450); RED BLOOD COUNT 3.02 MIL/MM3 (4.50-5.90); RED CELL DISTRIBUTION WIDTH 17.3 % (11.6-17.2); WHITE BLOOD COUNT 7.9 TH/MM3 (4.0-11.0)
[2016-06-19 06:13] LABS: INTERNATIONAL NORMALIZED RATIO 1.5 RATIO; PROTHROMBIN TIME - PATIENT 17.3 SEC (9.8-11.6)
[2016-06-19 06:38] LABS: ALT (GPT) 18 U/L (12-78); ANION GAP 8 MEQ/L (5-15); AST (GOT) 17 U/L (15-37); BICARBONATE 27.3 MEQ/L (21.0-32.0); BLOOD UREA NITROGEN 15 MG/DL (7-18); CHLORIDE 105 MEQ/L (98-107); GLOMERULAR FILTRATION RATE 52 ML/MIN (>89); POTASSIUM 3.7 MEQ/L (3.5-5.1); SODIUM (NA) 140 MEQ/L (136-145)
[2016-06-19 06:41] LABS: ALKALINE PHOSPHATASE 54 U/L (45-117); TOTAL BILIRUBIN ADULT 0.4 MG/DL (0.2-1.0)
[2016-06-19] MEDS: TAMSULOSIN HCL 0.4 MG CAP PO SCH (08:54)
[2016-06-19] MEDS: PANTOPRAZOLE SOD 40 MG DELAYED RELEASE TAB PO SCH (08:54)
[2016-06-19] MEDS: GABAPENTIN 300 MG CAP PO SCH ×3 (08:54→17:50)
[2016-06-19] MEDS: SODIUM CHLORIDE 0.9% FLUSH 5 ML FLUSH IVF SCH ×2 (08:55→21:48)
[2016-06-19] MEDS: COLLAGENASE OINT 30 GM TUBE TOP SCH (08:55)
[2016-06-19] MEDS: ACETAMINOPHEN/HYDROcodone 325 MG/10 MG TAB PO PRN ×3 (09:02→22:46)
--- NOTE | 2016-06-19 09:17 | HHI.GIFU ---
Subjective Remarks Resting in bed. No active bleeding. Denies any GI symptoms. Tolerating breakfast. (Joelle Lyon) Objective Vitals I&O Vital Signs Date Time Temp Pulse Resp B/P Pulse Ox O2 Delivery O2 Flow Rate FiO2 06/19/16 04:52 98.9 78 20 104/60 98 06/19/16 00:10 99.1 77 16 109/64 97 06/18/16 21:00 Nasal Cannula 2.00 06/18/16 20:10 97 Nasal Cannula 2.00 06/18/16 20:00 76 06/18/16 20:00 98.1 83 18 117/53 98 06/18/16 16:00 98.0 74 22 117/59 98 06/18/16 12:00 98.2 75 22 108/56 98 06/18/16 11:51 Nasal Cannula 2.00 06/18/16 11:06 99 Nasal Cannula 2.00 I/O 06/18/16 06/18/16 06/18/16 06/19/16 06/19/16 06/19/16 07:00 15:00 23:00 07:00 15:00 23:00 Intake Total 120 ml 720 ml 240 ml 120 ml Output Total 300 ml 1600 ml 250 ml 975 ml Balance -180 ml -880 ml -10 ml -855 ml Intake Oral 120 ml 720 ml 240 ml 120 ml Output Urine Total 300 ml 1600 ml 250 ml 975 ml # Bowel Movements 1 Laboratory Laboratory Tests Test 06/19/16 05:25 White Blood Count 7.9 Red Blood Count 3.02 Hemoglobin 9.3 Hematocrit 27.4 Mean Corpuscular Volume 90.8 Mean Corpuscular Hemoglobin 30.9 Mean Corpuscular Hemoglobin 34.1 Concent Red Cell Distribution Width 17.3 Platelet Count 203 Mean Platelet Volume 8.0 Neutrophils (%) (Auto) 68.1 Lymphocytes (%) (Auto) 14.7 Monocytes (%) (Auto) 11.8 Eosinophils (%) (Auto) 4.0 Basophils (%) (Auto) 1.4 Neutrophils # (Auto) 5.4 Lymphocytes # (Auto) 1.2 Monocytes # (Auto) 0.9 Eosinophils # (Auto) 0.3 Basophils # (Auto) 0.1 CBC Comment DIFF FINAL Differential Comment Prothrombin Time 17.3 Prothromb Time International 1.5 Ratio Sodium Level 140 Potassium Level 3.7 Chloride Level 105 Carbon Dioxide Level 27.3 Anion Gap 8 Blood Urea Nitrogen 15 Creatinine 1.37 Estimat Glomerular Filtration 52 Rate Random Glucose 131 Calcium Level 8.2 Total Bilirubin 0.4 Aspartate Amino Transf 17 (AST/SGOT) Alanine Aminotransferase 18 (ALT/SGPT) Alkaline Phosphatase 54 Total Protein 5.9 Albumin 2.0 Date/Time Procedure Status Source Growth 06/16/16 04:30 Urine Culture - Final Complete Urine Clean Catch Natalie [facility] Last Impressions Brain MRI 06/15/16 1143 Signed Impressions: Service Date/Time: June 12:49 - CONCLUSION: 1. Cerebral atrophy and extensive chronic ischemic small vessel vasculopathy. 2. No acute infarction. Subhash Arteaga MD Chest X-Ray 06/15/16 0000 Signed Impressions: Service Date/Time: June 12:12 - CONCLUSION: Bilateral mainly basilar infiltrates and bilateral effusions Bret Vidal MD Carotid Artery Ultrasound 06/15/16 0000 Signed Impressions: Service Date/Time: June 18:56 - CONCLUSION: 1. Bilateral carotid bifurcation atherosclerosis, moderate on the right and mild on the left. No hemodynamically significant narrowing on either side. 2. Limited study and the vertebral arteries are not well-visualized today. They had antegrade flow within them on the prior ultrasound. Bret Truong MD Foot MRI 06/07/16 0000 Signed Impressions: Service Date/Time: Tuesday, June 07, 2016 09:34 - CONCLUSION: 1. Deep soft tissue ulcer of the midfoot and with associated osteomyelitis of the plantar/lateral aspect of the fourth metatarsal base and mid to distal cuboid. Please see above. Fifth metatarsal previously resected. 2. Second toe amputation since the prior MRI. Indurated soft tissues and focal cortical destruction seen of the second metatarsal head remnant. No deep osteomyelitis of the second metatarsal. 3. No soft tissue abscesses are demonstrated. 4. Apparent cellulitis of the heel pad. No calcaneal osteomyelitis demonstrated. Bret Truong MD Ankle MRI 06/07/16 0000 Signed Impressions: Service Date/Time: Tuesday, June 07, 2016 09:34 - CONCLUSION: 1. No evidence of osteomyelitis. 2. Old healed fracture of the distal fibula. 3. Subcutaneous nonspecific edema. Juan J. Siragusa, MD Upper Extremity Ultrasound 06/05/16 0000 Signed Impressions: Service Date/Time: Sunday, June 05, 2016 20:02 - CONCLUSION: Normal examination. Don Izaguirre MD Aorta w/Runoff CTA 06/01/16 0000 Signed Impressions: Service Date/Time: May 12:13 - CONCLUSION: 1. Heavily diseased but adequate in flow down to the level of the groin bilaterally. 2. 3. Right le. Diffusely diseased superficial femoral artery with multiple areas of moderate and scattered areas of high grade stenosis. The popliteal is diseased but adequate in caliber. Distally, there is single vessel runoff into the foot via the anterior tibial. 5. 6. Left le. Heavily diseased superficial femoral with scattered areas of moderate and high grade stenosis. The popliteal is heavily diseased as well. Distally, there is occlusion of the origin of all 3 trifurcation vessels. Eventually, there is reconstitution of the anterior tibial and posterior tibial. Aric Cazares MD Head CT 05/24/16 1217 Signed Impressions: Service Date/Time: Tuesday, May 24, 2016 12:55 - CONCLUSION: 1. No acute intracranial abnormality. 2. Atrophy. 3. Chronic small vessel ischemic change. Juvenal aJrquin Jr., MD Physical Exam HEENT: Normocephalic; atraumatic; no jaundice. CHEST: CTA. CARDIAC: RRR. ABDOMEN: Soft, nondistended, nontender; no hepatosplenomegaly; bowel sounds are present in all four quadrants. EXTREMITIES: Left BKA SKIN: Normal; no rash; no jaundice. ARMHOLE SEWER: No focal deficits; alert and oriented times three. (Joelle LyonP) Assessment and Plan Plan ASSESSMENT: - Chronic Anemia. He is being worked up for possible TIA. He is on Coumadin. EGD on (05/09/16)--->reflux esophagitis, small hiatal hernia, gastritis, bx showed barrettes. He never had a colonoscopy before. No obvious active bleeding. S/P 5 units PRBC. HH 9.3/27.4 He is not having any obvious active GI bleeding and he is not stable for colonoscopy at this time secondary to recent AKA, risk of contamination- ? later in week, will d/w Dr. Link. - TIA. Neurology on the case, work up in progress - Osteomyelitis of left ankle S/P AKA (06/13/16) - Atrial fibrillation. on Coumadin - PVD, DM, CHF, Depression, COPD, HTN per primary PLAN: - SUSAN - Monitor HH - Transfuse as needed - No signs of active bleeding. - Would hold on colonoscopy at this time secondary to recent AKA and risk of contamination - Pt seen and examined by Dr. Link and myself and this note is written on his behalf (Joelle Lyon) Physician Comments Patient seen and examined Agree with above Continue with current supportive care Monitor labs We'll continue to hold on pursuing colonoscopy until his leg is fully healed or there is a change in status or active bleeding (Raul Link MD) Joelle Lyon Jun 19, 2016 09:17 Raul Link MD Jun 19, 2016 22:48
--- NOTE | 2016-06-19 10:52 | HHI.PR ---
Subjective Remarks resting comfortably with no distress. pain is fairly controlled. no fever. Objective Vitals Vital Signs Date Time Temp Pulse Resp B/P Pulse Ox O2 Delivery O2 Flow Rate FiO2 06/19/16 09:00 97 Nasal Cannula 2.00 06/19/16 08:00 98.0 94 20 145/67 98 06/19/16 04:52 98.9 78 20 104/60 98 06/19/16 00:10 99.1 77 16 109/64 97 06/18/16 21:00 Nasal Cannula 2.00 06/18/16 20:10 97 Nasal Cannula 2.00 06/18/16 20:00 76 06/18/16 20:00 98.1 83 18 117/53 98 06/18/16 16:00 98.0 74 22 117/59 98 06/18/16 12:00 98.2 75 22 108/56 98 06/18/16 11:51 Nasal Cannula 2.00 06/18/16 11:06 99 Nasal Cannula 2.00 I/O 06/18/16 06/18/16 06/18/16 06/19/16 06/19/16 06/19/16 07:00 15:00 23:00 07:00 15:00 23:00 Intake Total 120 ml 720 ml 240 ml 120 ml Output Total 300 ml 1600 ml 250 ml 975 ml Balance -180 ml -880 ml -10 ml -855 ml Intake Oral 120 ml 720 ml 240 ml 120 ml Output Urine Total 300 ml 1600 ml 250 ml 975 ml # Bowel Movements 1 Result Diagram: 06/19/16 0525 06/19/16 0525 Imaging Last Impressions Brain MRI 06/15/16 1143 Signed Impressions: Service Date/Time: June 12:49 - CONCLUSION: 1. Cerebral atrophy and extensive chronic ischemic small vessel vasculopathy. 2. No acute infarction. Subhash Arteaga MD Chest X-Ray 06/15/16 0000 Signed Impressions: Service Date/Time: June 12:12 - CONCLUSION: Bilateral mainly basilar infiltrates and bilateral effusions Bret Vidal MD Carotid Artery Ultrasound 06/15/16 0000 Signed Impressions: Service Date/Time: June 18:56 - CONCLUSION: 1. Bilateral carotid bifurcation atherosclerosis, moderate on the right and mild on the left. No hemodynamically significant narrowing on either side. 2. Limited study and the vertebral arteries are not well-visualized today. They had antegrade flow within them on the prior ultrasound. Bret Truong MD Foot MRI 06/07/16 0000 Signed Impressions: Service Date/Time: Tuesday, June 07, 2016 09:34 - CONCLUSION: 1. Deep soft tissue ulcer of the midfoot and with associated osteomyelitis of the plantar/lateral aspect of the fourth metatarsal base and mid to distal cuboid. Please see above. Fifth metatarsal previously resected. 2. Second toe amputation since the prior MRI. Indurated soft tissues and focal cortical destruction seen of the second metatarsal head remnant. No deep osteomyelitis of the second metatarsal. 3. No soft tissue abscesses are demonstrated. 4. Apparent cellulitis of the heel pad. No calcaneal osteomyelitis demonstrated. Bret Truong MD Ankle MRI 06/07/16 0000 Signed Impressions: Service Date/Time: Tuesday, June 07, 2016 09:34 - CONCLUSION: 1. No evidence of osteomyelitis. 2. Old healed fracture of the distal fibula. 3. Subcutaneous nonspecific edema. Juan Bonilla MD Upper Extremity Ultrasound 06/05/16 0000 Signed Impressions: Service Date/Time: Sunday, June 05, 2016 20:02 - CONCLUSION: Normal examination. KNoam Izaguirre MD Aorta w/Runoff CTA 06/01/16 0000 Signed Impressions: Service Date/Time: May 12:13 - CONCLUSION: 1. Heavily diseased but adequate in flow down to the level of the groin bilaterally. 2. 3. Right le. Diffusely diseased superficial femoral artery with multiple areas of moderate and scattered areas of high grade stenosis. The popliteal is diseased but adequate in caliber. Distally, there is single vessel runoff into the foot via the anterior tibial. 5. 6. Left le. Heavily diseased superficial femoral with scattered areas of moderate and high grade stenosis. The popliteal is heavily diseased as well. Distally, there is occlusion of the origin of all 3 trifurcation vessels. Eventually, there is reconstitution of the anterior tibial and posterior tibial. Aric Cazares MD Head CT 05/24/16 1217 Signed Impressions: Service Date/Time: Tuesday, May 24, 2016 12:55 - CONCLUSION: 1. No acute intracranial abnormality. 2. Atrophy. 3. Chronic small vessel ischemic change. Juvenal Jarquin Jr., MD Objective Remarks GENERAL: This is a well-nourished, well-developed patient, in no apparent distress. CARDIOVASCULAR: Regular rate and regular rhythm without murmurs, gallops, or rubs. RESPIRATORY: Clear to auscultation. Breath sounds equal bilaterally. No wheezes , rales, or rhonchi. GASTROINTESTINAL: Abdomen soft, non-tender, nondistended. Normal, active bowel sounds MUSCULOSKELETAL: s/p left AKA NEURO: Alert & Oriented x4 to person, place, time, situation. Moves all ext x4 Procedures left AKA Medications and IVs Current Medications IV Flush 2 ml 2 ml UNSCH PRN IVF FLUSH AFTER USING IV ACCESS; Start 05/24/16 at 12:30; Stop 05/24/16 at 15:31; Status DC Sodium Chloride 1,000 ml @ 1,000 mls/hr Q1H IV Last administered on at 13:23; Start 05/24/16 at 12:17; Stop 05/24/16 at 13:16; Status DC Piperacillin Sod/ Tazobactam Sod 100 ml @ 200 mls/hr ONCE ONCE IV Last administered on 05/24/16at 13:23; Start 05/24/16 at 12:30; Stop 05/24/16 at 12 :59; Status DC Vancomycin HCl/ Sodium Chloride (Vancomycin Inj/ NS 250 ml Inj) 250 ml @ 250 mls/hr ONCE ONCE IV Last administered on 05/24/16at 14:47; Start 05/24/16 at 12:30; Stop 05/24/16 at 13:29; Status DC Calcium Gluconate (Calcium Gluconate Inj) 1 gm ONCE ONCE SLOW IVP Last administered on 05/24/16at 14:40; Start 05/24/16 at 13:45; Stop 05/24/16 at 13 :46; Status DC Insulin Human Regular (NovoLIN R INJ) 10 units ONCE ONCE IV PUSH Last administered on 05/24/16at 14:39; Start 05/24/16 at 14:00; Stop 05/24/16 at 14 :01; Status DC Dextrose (D50w (Vial) Inj) 50 ml ONCE ONCE IV PUSH Last administered on at 14:39; Start 05/24/16 at 13:45; Stop 05/24/16 at 13:46; Status DC Sodium Bicarbonate (Sodium Bicarbonate 8.4% Inj) 50 meq ONCE ONCE SLOW IVP Last administered on 05/24/16at 14:23; Start 05/24/16 at 13:45; Stop 05/24/16 at 13:46; Status DC Albuterol Sulfate (Albuterol Concentrated Neb) 10 mg ONCE ONCE INH Last administered on 05/24/16at 14:58; Start 05/24/16 at 13:45; Stop 05/24/16 at 13 :46; Status DC Sodium Polystyrene Sulfonate 15 gm 15 gm ONCE ONCE PO Last administered on at 14:18; Start 05/24/16 at 13:45; Stop 05/24/16 at 13:46; Status DC Sodium Chloride 1,000 ml @ 999 mls/hr BOLUS ONCE IV Last administered on at 14:40; Start 05/24/16 at 14:00; Stop 05/24/16 at 15:00; Status DC Sodium Chloride (NS 1000 ml Inj) 1,000 ml @ 150 mls/hr Q6H40M IV Last administered on 05/29/16at 02:20; Start 05/24/16 at 14:33; Stop 05/29/16 at 14 :38; Status DC IV Flush (NS Flush) 2 ml UNSCH PRN IV FLUSH FLUSH AFTER USING IV ACCESS; Start 05/24/16 at 14:45; Stop 06/13/16 at 09:19; Status DC IV Flush (NS Flush) 2 ml BID IV FLUSH Last administered on 06/12/16t 23:09; Start 05/24/16 at 21:00; Stop 06/13/16 at 09:19; Status DC Pantoprazole Sodium (Protonix Inj) 40 mg DAILY IV Last administered on at 08:47; Start 05/24/16 at 15:30; Stop 05/29/16 at 14:39; Status DC Albuterol/ Ipratropium (Duoneb Neb) 1 ampule Q2HR NEB PRN INH WHEEZING; Start 05/24/16 at 14:45 Miscellaneous Information 1 Q361D XX Last administered on 05/24/16at 17:09; Start 05/24/16 at 14:45 Chlorhexidine Gluconate (Chlorhexidine 2% Cloth) 3 pack Taper DAILY@04 TOP Last administered on 05/25/16at 04:00; Start 05/25/16 at 04:00; Stop 05/29/16 at 14:38; Status DC Chlorhexidine Gluconate 3 pack 3 pack UNSCH PRN TOP HYGIENIC CARE; Start 05/24 at 14:45; Stop 05/29/16 at 14:38; Status DC Cefepime HCl 500 mg/Sodium Chloride 100 ml @ 200 mls/hr Q24H IV Last administered on 05/25/16at 16:29; Start 05/24/16 at 16:00; Stop 05/26/16 at 12 :54; Status DC Pharmacy Profile Note (Coumadin Consult Pharmacy) 0 ml @ 0 mls/hr UNSCH OTHER ; Start 05/24/16 at 14:45 Insulin Aspart 1 1 Q6HR SQ Last administered on 06/19/16 05:43; Start at 15:30 Piperacillin Sod/ Tazobactam Sod 50 ml @ 100 mls/hr Q8H IV Last administered on 05/25/16at 05:24; Start 05/24/16 at 21:00; Stop 05/25/16 at 10:27; Status DC Pharmacy Profile Note (Vancomycin Consult Pharmacy) 0 ml @ 0 mls/hr UNSCH OTHER ; Start 05/24/16 at 16:15 Collagenase (Santyl Oint) 1 applic DAILY TOP Last administered on 06/19/16 08: 55; Start 05/25/16 at 09:00 Miscellaneous Information SPECIFIC LAB TO BE DRAWN:VANCOMYCIN RANDOM DATE TO... ONCE ONCE XX ; Start 05/25/16 at 14:00; Stop 05/25/16 at 14:00; Status DC Acetaminophen/ Hydrocodone Bitart 1 tab 1 tab Q6H PRN PO PAIN Last administered on 06/12/16 23:34; Start 05/24/16 at 23:45; Stop 06/13/16 at 09:21 ; Status DC Norepinephrine Bitartrate 250 ml @ 0 mls/hr TITRATE IV Last administered on at 01:07; Start 05/25/16 at 00:30; Stop 05/25/16 at 07:07; Status DC Piperacillin Sod/ Tazobactam Sod 50 ml @ 100 mls/hr Q8H IV Last administered on 05/29/16at 20:39; Start 05/25/16 at 13:00; Stop 05/29/16 at 23:06; Status DC Vancomycin HCl/ Sodium Chloride (Vancomycin Inj/ NS 250 ml Inj) 250 ml @ 250 mls/hr ONCE ONCE IV Last administered on 05/25/16at 11:49; Start 05/25/16 at 12:00; Stop 05/25/16 at 12:59; Status DC Miscellaneous Information SPECIFIC LAB TO BE DRAWN:RANDOM LEVEL DATE TO BE DR... ONCE ONCE XX Last administered on 05/26/16at 05:19; Start 05/26/16 at 06:00; Stop 05/26/16 at 06:01; Status DC Sodium Chloride (NS 250 ml Inj) 250 ml @ 15 mls/hr ONCE ONCE IV Last administered on 05/26/16at 09:40; Start 05/26/16 at 06:00; Stop 05/26/16 at 22 :39; Status DC Furosemide 20 mg 20 mg ONCE ONCE IV Last administered on 05/26/16at 12:37; Start 05/26/16 at 06:00; Stop 05/26/16 at 06:01; Status DC Vancomycin HCl/ Sodium Chloride (Vancomycin Inj/ NS 250 ml Inj) 262.5 ml @ 250 mls/hr Q24H IV Last administered on 05/29/16at 12:21; Start 05/26/16 at 12:00 ; Stop 05/29/16 at 15:10; Status DC Miscellaneous Information SPECIFIC LAB TO BE DAVID... ONCE ONCE XX ; Start 05/29 at 11:45; Stop 05/29/16 at 11:46; Status DC Cefepime HCl/ Sodium Chloride (Maxipime Inj/NS Inj) 100 ml @ 200 mls/hr Q24H IV Last administered on 05/27/16at 17:36; Start 05/26/16 at 16:00; Stop 05/28 at 09:04; Status DC Fluconazole (Diflucan) 200 mg DAILY PO Last administered on 06/12/16t 08:58; Start 05/27/16 at 09:00; Stop 06/12/16 at 13:42; Status DC Warfarin Sodium (Coumadin) 5 mg DAILY@1600 PO Last administered on 05/29/16at 15:45; Start 05/27/16 at 16:00; Stop 05/31/16 at 11:40; Status DC Warfarin Sodium 0.5 mg 0.5 mg DAILY@16 PO Last administered on 05/29/16at 15:45 ; Start 05/27/16 at 16:00; Stop 05/31/16 at 11:37; Status DC Cefepime HCl/ Sodium Chloride (Maxipime Inj/NS Inj) 100 ml @ 200 mls/hr Q12H IV Last administered on 05/29/16at 08:46; Start 05/28/16 at 10:00; Stop 05/29 at 09:20; Status DC Warfarin Sodium (Coumadin) 7.5 mg ONCE ONCE PO Last administered on at 17:02; Start 05/28/16 at 16:00; Stop 05/28/16 at 16:01; Status DC Tamsulosin HCl (Flomax) 0.4 mg DAILY PO Last administered on 06/19/16 08:54; Start 05/28/16 at 15:00 Pantoprazole Sodium (Protonix) 40 mg DAILY PO Last administered on 06/19/16 08: 54; Start 05/30/16 at 09:00 Bumetanide 1 mg 1 mg ONCE ONCE IV PUSH Last administered on 05/29/16at 15:45; Start 05/29/16 at 15:00; Stop 05/29/16 at 15:01; Status DC Vancomycin HCl/ Sodium Chloride (Vancomycin Inj/ NS 250 ml Inj) 262.5 ml @ 262.5 mls/ hr Q18H IV Last administered on 05/30/16at 06:07; Start 05/30/16 at 06:00; Stop 05/30/16 at 11:27; Status DC Miscellaneous Information SPECIFIC LAB TO BE DAVID... ONCE ONCE XX ; Start 05/30 at 23:45; Stop 05/30/16 at 23:46; Status Cancel Vancomycin HCl/ Sodium Chloride (Vancomycin Inj/ NS 500 ml Inj) 515 ml @ 250 mls/hr Q18H IV Last administered on 06/01/16at 13:28; Start 05/31/16 at 00:00 ; Stop 06/01/16 at 14:39; Status DC Miscellaneous Information SPECIFIC LAB TO BE DRAWN:VANCOMYCIN TROUGH DATE TO... ONCE ONCE XX Last administered on 06/01/16at 13:27; Start 06/01/16 at 11:45; Stop 06/01/16 at 11:46; Status DC Warfarin Sodium (Coumadin) 4 mg DAILY@16 PO Last administered on 06/02/16at 16: 19; Start 05/31/16 at 16:00; Stop 06/05/16 at 11:08; Status DC Iohexol 100 ml 100 ml STK-MED ONCE IV Last administered on 06/01/16at 13:18; Start 06/01/16 at 13:18; Stop 06/01/16 at 13:19; Status DC Vancomycin HCl/ Sodium Chloride (Vancomycin Inj/ NS 500 ml Inj) 515 ml @ 250 mls/hr Q24H IV Last administered on 06/06/16at 13:52; Start 06/02/16 at 14:00 ; Stop 06/06/16 at 15:00; Status DC Miscellaneous Information SPECIFIC LAB TO BE DRAWN:VANCOMYCIN TROUGH DATE TO... ONCE ONCE XX Last administered on 06/04/16at 13:55; Start 06/04/16 at 13:45; Stop 06/04/16 at 13:46; Status DC Miscellaneous Information SPECIFIC LAB TO BE DAVID... ONCE ONCE XX Last administered on 06/06/16at 13:45; Start 06/06/16 at 13:45; Stop 06/06/16 at 13 :46; Status DC Warfarin Sodium 3 mg 3 mg DAILY@16 PO Last administered on 06/08/16at 15:40; Start 06/05/16 at 16:00; Stop 06/13/16 at 09:27; Status DC Vancomycin HCl/ Sodium Chloride (Vancomycin Inj/ NS 500 ml Inj) 517.5 ml @ 250 mls/hr Q36H IV Last administered on 06/12/16 18:18; Start 06/08/16 at 06:00; Stop 06/12/16 at 19:09; Status DC Miscellaneous Information SPECIFIC LAB TO BE DRAWN:VANCOMYCIN TROUGH DATE TO... ONCE ONCE XX Last administered on 06/12/16 17:45; Start 06/12/16 at 17:45; Stop 06/12/16 at 17:46; Status DC Gadodiamide (Omniscan Pf Inj) 22 ml STK-MED ONCE IV Last administered on at 10:21; Start 06/07/16 at 10:21; Stop 06/07/16 at 10:22; Status DC Phytonadione 5 mg 5 mg ONCE ONCE SQ Last administered on 06/11/16 06:30; Start 06/11/16 at 06:30; Stop 06/11/16 at 06:31; Status DC Sodium Chloride (NS 250 ml Inj) 250 ml @ 15 mls/hr ONCE ONCE IV Last administered on 06/11/16 00:00; Start 06/11/16 at 15:00; Stop 06/12/16 at 07:39; Status DC Acetaminophen (Tylenol) 650 mg Q4H PRN PO SEE LABEL COMMENTS; Start 06/11/16 at 15:00; Stop 06/11/16 at 19:01; Status DC Diphenhydramine HCl (Benadryl) 25 mg Q4H PRN PO SEE LABEL COMMENTS; Start at 15:00; Stop 06/11/16 at 19:01; Status DC Furosemide (Lasix Inj) 20 mg ONCE ONCE IV Last administered on 06/11/16 04:00 ; Start 06/11/16 at 15:00; Stop 06/11/16 at 15:01; Status DC Phytonadione 5 mg 5 mg ONCE ONCE SQ Last administered on 06/12/16 08:56; Start 06/12/16 at 06:50; Stop 06/12/16 at 06:51; Status DC Vancomycin HCl/ Sodium Chloride (Vancomycin Inj/ NS 500 ml Inj) 515 ml @ 250 mls/hr Q24H IV ; Start 06/13/16 at 18:00; Status Cancel Miscellaneous Information SPECIFIC LAB TO BE DRAWN:VANCO TROUGH DATE TO BE DR... ONCE ONCE XX ; Start 06/14/16 at 17:45; Stop 06/14/16 at 17:46; Status Cancel Vancomycin HCl/ Sodium Chloride (Vancomycin Inj/ NS 500 ml Inj) 517.5 ml @ 250 mls/hr Q36H IV Last administered on 06/18/16 17:19; Start 06/14/16 at 06:00 Sugammadex Sodium (Bridion Inj) 200 mg STK-MED ONCE IV PUSH ; Start 06/13/16 at 06:53; Stop 06/13/16 at 07:00; Status DC Acetaminophen (Ofirmev Inj) 1,000 mg STK-MED ONCE IV ; Start 06/13/16 at 06:53; Stop 06/13/16 at 07:00; Status DC Vancomycin HCl 1000 mg 1,000 mg STK-MED ONCE .ROUTE Last administered on 07:52; Start 06/13/16 at 07:04; Stop 06/13/16 at 07:17; Status DC Cefazolin Sodium/ Dextrose (Ancef 2 Gm Premix) 50 ml @ As Directed STK-MED ONCE .ROUTE Last administered on 06/13/16 07:53; Start 06/13/16 at 07:04; Stop at 07:17; Status DC Bupivacaine HCl/ Epinephrine Bitart (Marcaine-Epi Pf 0.25% Inj) 30 ml STK-MED ONCE .ROUTE Last administered on 06/13/16 07:51; Start 06/13/16 at 07:04; Stop 06/13/16 at 07:17; Status DC Cefazolin Sodium (Ancef Inj) 1,000 mg STK-MED ONCE .ROUTE Last administered on 06/13/16 07:52; Start 06/13/16 at 07:04; Stop 06/13/16 at 07:17; Status DC Gentamicin Sulfate 240 mg 240 mg STK-MED ONCE .ROUTE ; Start 06/13/16 at 07:05; Stop 06/13/16 at 07:17; Status DC Sodium Chloride (NS 250 ml Inj) 250 ml @ As Directed STK-MED ONCE .ROUTE ; Start 06/13/16 at 07:05; Stop 06/13/16 at 07:17; Status DC Ketamine HCl (Ketalar Inj) 500 mg STK-MED ONCE .ROUTE ; Start 06/13/16 at 07:24; Stop 06/13/16 at 07:35; Status DC IV Flush (NS Flush) 2 ml UNSCH PRN IVF FLUSH AFTER USING IV ACCESS; Start at 09:15 IV Flush (NS Flush) 2 ml BID IVF Last administered on 1/9/17at 08:55; Start 06/13/16 at 21:00 Acetaminophen/ Hydrocodone Bitart (Cache 10-325 Mg) 1 tab Q3H PRN PO PAIN LESS THAN 5 ON SCALE Last administered on 06/19/16 09:02; Start 06/13/16 at 09:15 Acetaminophen/ Hydrocodone Bitart (Cache 10-325 Mg) 2 tab Q6H PRN PO PAIN GREATER THAN/EQUAL TO 5 Last administered on 06/14/16 15:07; Start 06/13/16 at 09 :15 Gabapentin (Neurontin) 300 mg TID PO Last administered on 06/19/16 08:54; Start 06/13/16 at 13:00 Morphine Sulfate (Morphine Inj) 4 mg Q3H PRN IV PUSH break thru pain Last administered on 06/14/16 17:52; Start 06/13/16 at 09:15 Warfarin Sodium (Coumadin) 3 mg DAILY@16 PO Last administered on 06/18/16 15:41 ; Start 06/14/16 at 16:00 Albuterol Sulfate (*ALBUTEROL NEB PERIprocedure ONLY) 2.5 mg STK-MED ONCE NEB ; Start 06/13/16 at 09:29; Stop 06/13/16 at 09:30; Status DC Midazolam HCl (Versed Inj) 2 mg STK-MED ONCE .ROUTE ; Start 06/13/16 at 09:30; Stop 06/13/16 at 09:31; Status DC Miscellaneous Information ALL NURSING DEPARTME... UNSCH PRN XX SEE LABEL COMMENTS; Start 06/13/16 at 09:20; Stop 06/14/16 at 09:19; Status DC Miscellaneous Information SPECIFIC LAB TO BE DRAWN:VANCO TROUGH DATE TO BE DRNoam.. ONCE ONCE XX Last administered on 06/14/16 05:54; Start 06/14/16 at 05:45 ; Stop 06/14/16 at 05:46; Status DC Propofol (Diprivan 200 Mg/20 ml Inj) 200 mg STK-MED ONCE IV ; Start 06/13/16 at 12:00; Stop 06/14/16 at 10:19; Status DC Ondansetron HCl 4 mg 4 mg STK-MED ONCE IV PUSH ; Start 06/13/16 at 12:00; Stop at 10:19; Status DC Lactated Ringer's (Lr 1000 ml Inj) 1,000 ml @ As Directed STK-MED ONCE IV ; Start 06/13/16 at 12:00; Stop 06/14/16 at 10:19; Status DC Ephedrine Sulfate (ePHEDrine/NS 50 MG/5 ML SYR) 50 mg STK-MED ONCE IV ; Start at 12:00; Stop 06/14/16 at 10:19; Status DC Phenylephrine HCl (Neosynephrine/ NS 1000 Mcg/10ml Syr) 1,000 mcg STK-MED ONCE IV ; Start 06/13/16 at 12:00; Stop 06/14/16 at 10:19; Status DC Miscellaneous Information SPECIFIC LAB TO BE DRAWN:VANCOMYCIN TROUGH DATE TO... ONCE ONCE XX Last administered on 06/17/16 05:55; Start 06/17/16 at 05:45; Stop 06/17/16 at 05:46; Status DC Acetaminophen (Ofirmev Inj) 650 mg ONCE ONCE IV Last administered on 06/15/16 01:23; Start 06/15/16 at 01:15; Stop 06/15/16 at 01:16; Status DC Warfarin Sodium 2 mg 2 mg ONCE PO Last administered on 06/15/16 18:10; Start at 16:00; Stop 06/15/16 at 21:00; Status DC Sodium Chloride (NS 1000 ml Inj) 1,000 ml @ 70 mls/hr [id number] IV Last administered on 06/16/16 02:40; Start 06/15/16 at 11:38; Stop 06/16/16 at 09:35; Status DC Aspirin (Aspirin Chew) 162 mg NOW STAT PO Last administered on 06/15/16 12:27 ; Start 06/15/16 at 12:16; Stop 06/15/16 at 12:21; Status DC Atorvastatin Calcium 20 mg 20 mg HS PO Last administered on 06/18/16 20:17; Start 06/15/16 at 21:00 Sodium Chloride 1,000 ml @ 999 mls/hr BOLUS ONCE IV Last administered on 15:14; Start 06/15/16 at 12:30; Stop 06/15/16 at 13:30; Status DC Sodium Chloride 250 ml @ 15 mls/hr ONCE ONCE IV Last administered on 12:33; Start 06/16/16 at 09:30; Stop 06/17/16 at 02:09; Status DC Ceftriaxone Sodium 1000 mg/ Sodium Chloride 100 ml @ 200 mls/hr Q24H IV Last administered on 06/16/16 12:33; Start 06/16/16 at 10:00; Stop 06/16/16 at 17:43; Status DC Piperacillin Sod/ Tazobactam Sod 50 ml @ 100 mls/hr Q6H IV Last administered on 06/19/16 08:55; Start 06/16/16 at 20:00 Sodium Chloride (NS 500 ml Inj) 500 ml @ 50 mls/hr Q10H ONCE IV Last administered on 06/18/16 13:34; Start 06/18/16 at 13:15; Stop 06/18/16 at 23:14; Status DC A/P Assessment and Plan A/P s/p left AKA - Post surgical management post operative pain rehabilitation as per surgical service - continue IV Abx per ID. Appreciate rehabilitation medicine's recommendations concerning long-term recommendations in rehabilitation and improvement of ADL Acute kidney injury improved on IV hydration- Adjust vancomycin dosing - monitor renal function. Previous Sepsis on admission. Resolved. - Initially thought to be secondary to Natalie UTI, however most likely secondary to osteomyelitis. Acute Anemia. Currently asymptomatic -Slow decline. Likely anemia of inflammation - - s/p PRBC transfusion with improved H/H. -GI consult appreciated; no plan for endoscopy at this time. Type 2 diabetes. Overall Control. Continue sliding scale insulin. Atrial fibrillation. Currently heart rate is controlled. Restarted warfarin - PT/INR monitoring. Diabetic neuropathy. Chronic. Continue gabapentin. Tobaccoism. Recommend cessation. Hypertension and now borderline hypotensive due to infection. Hold all antihypertensives . UTI. On admission with Natalie glabrata. Status post diflucan. DVT Prophylaxis. Coumadin restarted . Ronn Pugh MD Jun 19, 2016 10:52
[2016-06-19] MEDS ORDERED: NEUR300C PO (10:57)
[2016-06-19] MEDS ORDERED: LIPI20TA PO (10:57)
[2016-06-19] MEDS ORDERED: COUM3TAB PO (10:57)
--- NOTE | 2016-06-19 10:58 | HHI.DCPOC ---
Discharge Care Plan Diagnosis: (1) Osteomyelitis Your Health Problems Are: Inflammation Chronic Pain Goals to Promote Your Health * To prevent worsening of your condition and complications * To maintain your health at the optimal level Directions to Meet Your Goals Take your medications as prescribed Follow your dietary instruction Follow activity as directed Keep your appointments as scheduled Take your immunizations and boosters as scheduled If your symptoms worsen call your PCP, if no PCP go to Urgent Care Center or Emergency Room Smoking is Dangerous to Your Health. Avoid second hand smoke Call the 24-hour hour crisis hotline for domestic abuse at Ronn Pugh MD Jun 19, 2016 10:58
[2016-06-19] MEDS ORDERED: TAMS5CAP PO (11:00)
--- NOTE | 2016-06-19 14:15 | PD.VS.PN ---
Subjective Subjective/Hospital Course Pt alert and oriented times [address] Objective Vitals/I&O Date Time Temp Pulse Resp B/P Pulse Ox O2 Delivery O2 Flow Rate FiO2 06/19/16 09:00 97 Nasal Cannula 2.00 06/19/16 08:00 98.0 94 20 145/67 98 06/19/16 04:52 98.9 78 20 104/60 98 06/19/16 00:10 99.1 77 16 109/64 97 06/18/16 21:00 Nasal Cannula 2.00 06/18/16 20:10 97 Nasal Cannula 2.00 06/18/16 20:00 76 06/18/16 20:00 98.1 83 18 117/53 98 06/18/16 16:00 98.0 74 22 117/59 98 06/19/16 06/19/16 06/19/16 07:00 15:00 23:00 Intake Total 120 ml Output Total 975 ml Balance -855 ml Physical Exam GENERAL: SKIN: Warm and dry. HEAD: Normocephalic. EYES: Pupils equal and round. NECK: Trachea midline. No JVD. CARDIOVASCULAR: Regular rate and rhythm. RESPIRATORY: No accessory muscle use. Clear to auscultation. Breath sounds equal bilaterally. MUSCULOSKELETAL: L MARELY, RLE warm to touch with healing right heel ulcer. NEUROLOGICAL: Awake and alert with normal speech. PSYCHIATRIC: Appropriate mood and affect; insight and judgment normal. Laboratory Laboratory Tests Test 06/19/16 05:25 White Blood Count 7.9 Red Blood Count 3.02 Hemoglobin 9.3 Hematocrit 27.4 Mean Corpuscular Volume 90.8 Mean Corpuscular Hemoglobin 30.9 Mean Corpuscular Hemoglobin 34.1 Concent Red Cell Distribution Width 17.3 Platelet Count 203 Mean Platelet Volume 8.0 Neutrophils (%) (Auto) 68.1 Lymphocytes (%) (Auto) 14.7 Monocytes (%) (Auto) 11.8 Eosinophils (%) (Auto) 4.0 Basophils (%) (Auto) 1.4 Neutrophils # (Auto) 5.4 Lymphocytes # (Auto) 1.2 Monocytes # (Auto) 0.9 Eosinophils # (Auto) 0.3 Basophils # (Auto) 0.1 CBC Comment DIFF FINAL Differential Comment Prothrombin Time 17.3 Prothromb Time International 1.5 Ratio Sodium Level 140 Potassium Level 3.7 Chloride Level 105 Carbon Dioxide Level 27.3 Anion Gap 8 Blood Urea Nitrogen 15 Creatinine 1.37 Estimat Glomerular Filtration 52 Rate Random Glucose 131 Calcium Level 8.2 Total Bilirubin 0.4 Aspartate Amino Transf 17 (AST/SGOT) Alanine Aminotransferase 18 (ALT/SGPT) Alkaline Phosphatase 54 Total Protein 5.9 Albumin 2.0 Date/Time Procedure Status Source Growth 06/16/16 04:30 Urine Culture - Final Complete Urine Clean Catch Natalie Glabrata Assessment and Plan Plan Pt to follow-up in the clinic as out-patient in 1 month with an JORDON study Mary Escobar [facility] Jun 19, 2016 14:15
[2016-06-19] MEDS: WARFARIN SOD 3 MG TAB PO SCH (15:11)
[2016-06-19] MEDS: ATORVASTATIN 20 MG TAB PO SCH (21:48)
[2016-06-20] VITALS (9 sets, daily range): BP systolic 119–146; BP diastolic 65–80; PULSE 74–87; RESP 20; TEMP 97.5–98.2; O2SAT 94–99
[2016-06-20] MEDS: PIPERACIL-TAZO 3.375 GM PREMIX 50 ML IV SCH ×4 (02:03→21:10)
[2016-06-20] MEDS: INSULIN ASPART SUPPLEMENTAL SCALE SQ SCH ×5 (06:00→23:37)
[2016-06-20] MEDS: VANCOMYCIN INJ 1,750 MG in SODIUM CHLORID 0.9% 500 ML INJ 500 ML IV SCH (06:30)
[2016-06-20 07:47] LABS: INTERNATIONAL NORMALIZED RATIO 1.7 RATIO; PROTHROMBIN TIME - PATIENT 19.4 SEC (9.8-11.6)
[2016-06-20] MEDS: GABAPENTIN 300 MG CAP PO SCH ×3 (09:32→18:15)
[2016-06-20] MEDS: PANTOPRAZOLE SOD 40 MG DELAYED RELEASE TAB PO SCH (09:32)
[2016-06-20] MEDS: TAMSULOSIN HCL 0.4 MG CAP PO SCH (09:32)
[2016-06-20] MEDS: ACETAMINOPHEN/HYDROcodone 325 MG/10 MG TAB PO PRN ×2 (09:34→21:10)
[2016-06-20] MEDS: SODIUM CHLORIDE 0.9% FLUSH 5 ML FLUSH IVF SCH ×2 (09:35→21:10)
[2016-06-20] MEDS: COLLAGENASE OINT 30 GM TUBE TOP SCH (09:35)
--- NOTE | 2016-06-20 10:37 | HHI.PR ---
Subjective Remarks with some wheezing today. no fever. pain is controlled. d/w the RN. Objective Vitals Vital Signs Date Time Temp Pulse Resp B/P Pulse Ox O2 Delivery O2 Flow Rate FiO2 06/20/16 10:20 99 Nasal Cannula 2.00 06/20/16 08:00 97.5 74 20 122/65 99 06/20/16 04:00 97.7 80 20 119/65 06/20/16 00:00 98.2 81 20 142/71 96 06/19/16 21:53 Nasal Cannula 2.00 06/19/16 20:30 Nasal Cannula 2.00 06/19/16 20:00 98.2 84 20 129/72 98 06/19/16 20:00 80 06/19/16 16:00 98.2 81 20 119/72 98 06/19/16 12:00 98.2 79 20 125/60 99 I/O 06/19/16 06/19/16 06/19/16 06/20/16 06/20/16 06/20/16 07:00 15:00 23:00 07:00 15:00 23:00 Intake Total 120 ml 540 ml 395 ml 155 ml Output Total 975 ml 575 ml 0 ml 0 ml Balance -855 ml -35 ml 395 ml 155 ml Intake Oral 120 ml 480 ml 240 ml 0 ml IV Total 60 ml 155 ml 155 ml Output Urine Total 975 ml 575 ml 0 ml 0 ml # Bowel Movements 0 0 0 Result Diagram: 06/19/16 0525 06/20/16 0621 Imaging Last Impressions Brain MRI 06/15/16 1143 Signed Impressions: Service Date/Time: June 12:49 - CONCLUSION: 1. Cerebral atrophy and extensive chronic ischemic small vessel vasculopathy. 2. No acute infarction. Subhash Arteaga MD Chest X-Ray 06/15/16 0000 Signed Impressions: Service Date/Time: June 12:12 - CONCLUSION: Bilateral mainly basilar infiltrates and bilateral effusions Bret Vidal MD Carotid Artery Ultrasound 06/15/16 0000 Signed Impressions: Service Date/Time: June 18:56 - CONCLUSION: 1. Bilateral carotid bifurcation atherosclerosis, moderate on the right and mild on the left. No hemodynamically significant narrowing on either side. 2. Limited study and the vertebral arteries are not well-visualized today. They had antegrade flow within them on the prior ultrasound. Bret Truong MD Foot MRI 06/07/16 0000 Signed Impressions: Service Date/Time: Tuesday, June 07, 2016 09:34 - CONCLUSION: 1. Deep soft tissue ulcer of the midfoot and with associated osteomyelitis of the plantar/lateral aspect of the fourth metatarsal base and mid to distal cuboid. Please see above. Fifth metatarsal previously resected. 2. Second toe amputation since the prior MRI. Indurated soft tissues and focal cortical destruction seen of the second metatarsal head remnant. No deep osteomyelitis of the second metatarsal. 3. No soft tissue abscesses are demonstrated. 4. Apparent cellulitis of the heel pad. No calcaneal osteomyelitis demonstrated. Bret Truong MD Ankle MRI 06/07/16 0000 Signed Impressions: Service Date/Time: Tuesday, June 07, 2016 09:34 - CONCLUSION: 1. No evidence of osteomyelitis. 2. Old healed fracture of the distal fibula. 3. Subcutaneous nonspecific edema. Juan Bonilla MD Upper Extremity Ultrasound 06/05/16 0000 Signed Impressions: Service Date/Time: Sunday, June 05, 2016 20:02 - CONCLUSION: Normal examination. K. Charly Izaguirre MD Aorta w/Runoff CTA 06/01/16 0000 Signed Impressions: Service Date/Time: May 12:13 - CONCLUSION: 1. Heavily diseased but adequate in flow down to the level of the groin bilaterally. 2. 3. Right le. Diffusely diseased superficial femoral artery with multiple areas of moderate and scattered areas of high grade stenosis. The popliteal is diseased but adequate in caliber. Distally, there is single vessel runoff into the foot via the anterior tibial. 5. 6. Left le. Heavily diseased superficial femoral with scattered areas of moderate and high grade stenosis. The popliteal is heavily diseased as well. Distally, there is occlusion of the origin of all 3 trifurcation vessels. Eventually, there is reconstitution of the anterior tibial and posterior tibial. Aric Cazares MD Head CT 05/24/16 1217 Signed Impressions: Service Date/Time: Tuesday, May 24, 2016 12:55 - CONCLUSION: 1. No acute intracranial abnormality. 2. Atrophy. 3. Chronic small vessel ischemic change. Juvenal Jarquin Jr., MD Objective Remarks GENERAL: This is a well-nourished, well-developed patient, in no apparent distress. CARDIOVASCULAR: Regular rate and regular rhythm without murmurs, gallops, or rubs. RESPIRATORY: Clear to auscultation. Breath sounds equal bilaterally. No wheezes , rales, or rhonchi. GASTROINTESTINAL: Abdomen soft, non-tender, nondistended. Normal, active bowel sounds MUSCULOSKELETAL: s/p left AKA NEURO: Alert & Oriented x4 to person, place, time, situation. Moves all ext x4 Procedures left AKA Medications and IVs Current Medications IV Flush 2 ml 2 ml UNSCH PRN IVF FLUSH AFTER USING IV ACCESS; Start 05/24/16 at 12:30; Stop 05/24/16 at 15:31; Status DC Sodium Chloride 1,000 ml @ 1,000 mls/hr Q1H IV Last administered on at 13:23; Start 05/24/16 at 12:17; Stop 05/24/16 at 13:16; Status DC Piperacillin Sod/ Tazobactam Sod 100 ml @ 200 mls/hr ONCE ONCE IV Last administered on 05/24/16at 13:23; Start 05/24/16 at 12:30; Stop 05/24/16 at 12 :59; Status DC Vancomycin HCl/ Sodium Chloride (Vancomycin Inj/ NS 250 ml Inj) 250 ml @ 250 mls/hr ONCE ONCE IV Last administered on 05/24/16at 14:47; Start 05/24/16 at 12:30; Stop 05/24/16 at 13:29; Status DC Calcium Gluconate (Calcium Gluconate Inj) 1 gm ONCE ONCE SLOW IVP Last administered on 05/24/16at 14:40; Start 05/24/16 at 13:45; Stop 05/24/16 at 13 :46; Status DC Insulin Human Regular (NovoLIN R INJ) 10 units ONCE ONCE IV PUSH Last administered on 05/24/16at 14:39; Start 05/24/16 at 14:00; Stop 05/24/16 at 14 :01; Status DC Dextrose (D50w (Vial) Inj) 50 ml ONCE ONCE IV PUSH Last administered on at 14:39; Start 05/24/16 at 13:45; Stop 05/24/16 at 13:46; Status DC Sodium Bicarbonate (Sodium Bicarbonate 8.4% Inj) 50 meq ONCE ONCE SLOW IVP Last administered on 05/24/16at 14:23; Start 05/24/16 at 13:45; Stop 05/24/16 at 13:46; Status DC Albuterol Sulfate (Albuterol Concentrated Neb) 10 mg ONCE ONCE INH Last administered on 05/24/16at 14:58; Start 05/24/16 at 13:45; Stop 05/24/16 at 13 :46; Status DC Sodium Polystyrene Sulfonate 15 gm 15 gm ONCE ONCE PO Last administered on at 14:18; Start 05/24/16 at 13:45; Stop 05/24/16 at 13:46; Status DC Sodium Chloride 1,000 ml @ 999 mls/hr BOLUS ONCE IV Last administered on at 14:40; Start 05/24/16 at 14:00; Stop 05/24/16 at 15:00; Status DC Sodium Chloride (NS 1000 ml Inj) 1,000 ml @ 150 mls/hr Q6H40M IV Last administered on 05/29/16at 02:20; Start 05/24/16 at 14:33; Stop 05/29/16 at 14 :38; Status DC IV Flush (NS Flush) 2 ml UNSCH PRN IV FLUSH FLUSH AFTER USING IV ACCESS; Start 05/24/16 at 14:45; Stop 06/13/16 at 09:19; Status DC IV Flush (NS Flush) 2 ml BID IV FLUSH Last administered on 06/12/16t 23:09; Start 05/24/16 at 21:00; Stop 06/13/16 at 09:19; Status DC Pantoprazole Sodium (Protonix Inj) 40 mg DAILY IV Last administered on at 08:47; Start 05/24/16 at 15:30; Stop 05/29/16 at 14:39; Status DC Albuterol/ Ipratropium (Duoneb Neb) 1 ampule Q2HR NEB PRN INH WHEEZING; Start 05/24/16 at 14:45 Miscellaneous Information 1 Q361D XX Last administered on 05/24/16at 17:09; Start 05/24/16 at 14:45 Chlorhexidine Gluconate (Chlorhexidine 2% Cloth) 3 pack Taper DAILY@04 TOP Last administered on 05/25/16at 04:00; Start 05/25/16 at 04:00; Stop 05/29/16 at 14:38; Status DC Chlorhexidine Gluconate 3 pack 3 pack UNSCH PRN TOP HYGIENIC CARE; Start 05/24 at 14:45; Stop 05/29/16 at 14:38; Status DC Cefepime HCl 500 mg/Sodium Chloride 100 ml @ 200 mls/hr Q24H IV Last administered on 05/25/16at 16:29; Start 05/24/16 at 16:00; Stop 05/26/16 at 12 :54; Status DC Pharmacy Profile Note (Coumadin Consult Pharmacy) 0 ml @ 0 mls/hr UNSCH OTHER ; Start 05/24/16 at 14:45 Insulin Aspart 1 1 Q6HR SQ Last administered on 06/19/16 05:43; Start at 15:30 Piperacillin Sod/ Tazobactam Sod 50 ml @ 100 mls/hr Q8H IV Last administered on 05/25/16at 05:24; Start 05/24/16 at 21:00; Stop 05/25/16 at 10:27; Status DC Pharmacy Profile Note (Vancomycin Consult Pharmacy) 0 ml @ 0 mls/hr UNSCH OTHER ; Start 05/24/16 at 16:15 Collagenase (Santyl Oint) 1 applic DAILY TOP Last administered on 06/20/16 09: 35; Start 05/25/16 at 09:00 Miscellaneous Information SPECIFIC LAB TO BE DRAWN:VANCOMYCIN RANDOM DATE TO... ONCE ONCE XX ; Start 05/25/16 at 14:00; Stop 05/25/16 at 14:00; Status DC Acetaminophen/ Hydrocodone Bitart 1 tab 1 tab Q6H PRN PO PAIN Last administered on 06/12/16 23:34; Start 05/24/16 at 23:45; Stop 06/13/16 at 09:21 ; Status DC Norepinephrine Bitartrate 250 ml @ 0 mls/hr TITRATE IV Last administered on at 01:07; Start 05/25/16 at 00:30; Stop 05/25/16 at 07:07; Status DC Piperacillin Sod/ Tazobactam Sod 50 ml @ 100 mls/hr Q8H IV Last administered on 05/29/16at 20:39; Start 05/25/16 at 13:00; Stop 05/29/16 at 23:06; Status DC Vancomycin HCl/ Sodium Chloride (Vancomycin Inj/ NS 250 ml Inj) 250 ml @ 250 mls/hr ONCE ONCE IV Last administered on 05/25/16at 11:49; Start 05/25/16 at 12:00; Stop 05/25/16 at 12:59; Status DC Miscellaneous Information SPECIFIC LAB TO BE DRAWN:RANDOM LEVEL DATE TO BE DR... ONCE ONCE XX Last administered on 05/26/16at 05:19; Start 05/26/16 at 06:00; Stop 05/26/16 at 06:01; Status DC Sodium Chloride (NS 250 ml Inj) 250 ml @ 15 mls/hr ONCE ONCE IV Last administered on 05/26/16at 09:40; Start 05/26/16 at 06:00; Stop 05/26/16 at 22 :39; Status DC Furosemide 20 mg 20 mg ONCE ONCE IV Last administered on 05/26/16at 12:37; Start 05/26/16 at 06:00; Stop 05/26/16 at 06:01; Status DC Vancomycin HCl/ Sodium Chloride (Vancomycin Inj/ NS 250 ml Inj) 262.5 ml @ 250 mls/hr Q24H IV Last administered on 05/29/16at 12:21; Start 05/26/16 at 12:00 ; Stop 05/29/16 at 15:10; Status DC Miscellaneous Information SPECIFIC LAB TO BE DAVID... ONCE ONCE XX ; Start 05/29 at 11:45; Stop 05/29/16 at 11:46; Status DC Cefepime HCl/ Sodium Chloride (Maxipime Inj/NS Inj) 100 ml @ 200 mls/hr Q24H IV Last administered on 05/27/16at 17:36; Start 05/26/16 at 16:00; Stop 05/28 at 09:04; Status DC Fluconazole (Diflucan) 200 mg DAILY PO Last administered on 06/12/16t 08:58; Start 05/27/16 at 09:00; Stop 06/12/16 at 13:42; Status DC Warfarin Sodium (Coumadin) 5 mg DAILY@1600 PO Last administered on 05/29/16at 15:45; Start 05/27/16 at 16:00; Stop 05/31/16 at 11:40; Status DC Warfarin Sodium 0.5 mg 0.5 mg DAILY@16 PO Last administered on 05/29/16at 15:45 ; Start 05/27/16 at 16:00; Stop 05/31/16 at 11:37; Status DC Cefepime HCl/ Sodium Chloride (Maxipime Inj/NS Inj) 100 ml @ 200 mls/hr Q12H IV Last administered on 05/29/16at 08:46; Start 05/28/16 at 10:00; Stop 05/29 at 09:20; Status DC Warfarin Sodium (Coumadin) 7.5 mg ONCE ONCE PO Last administered on at 17:02; Start 05/28/16 at 16:00; Stop 05/28/16 at 16:01; Status DC Tamsulosin HCl (Flomax) 0.4 mg DAILY PO Last administered on 06/20/16 09:32; Start 05/28/16 at 15:00 Pantoprazole Sodium (Protonix) 40 mg DAILY PO Last administered on 06/20/16 09 :32; Start 05/30/16 at 09:00 Bumetanide 1 mg 1 mg ONCE ONCE IV PUSH Last administered on 05/29/16at 15:45; Start 05/29/16 at 15:00; Stop 05/29/16 at 15:01; Status DC Vancomycin HCl/ Sodium Chloride (Vancomycin Inj/ NS 250 ml Inj) 262.5 ml @ 262.5 mls/ hr Q18H IV Last administered on 05/30/16at 06:07; Start 05/30/16 at 06:00; Stop 05/30/16 at 11:27; Status DC Miscellaneous Information SPECIFIC LAB TO BE DAVID... ONCE ONCE XX ; Start 05/30 at 23:45; Stop 05/30/16 at 23:46; Status Cancel Vancomycin HCl/ Sodium Chloride (Vancomycin Inj/ NS 500 ml Inj) 515 ml @ 250 mls/hr Q18H IV Last administered on 06/01/16at 13:28; Start 05/31/16 at 00:00 ; Stop 06/01/16 at 14:39; Status DC Miscellaneous Information SPECIFIC LAB TO BE DRAWN:VANCOMYCIN TROUGH DATE TO... ONCE ONCE XX Last administered on 06/01/16at 13:27; Start 06/01/16 at 11:45; Stop 06/01/16 at 11:46; Status DC Warfarin Sodium (Coumadin) 4 mg DAILY@16 PO Last administered on 06/02/16at 16: 19; Start 05/31/16 at 16:00; Stop 06/05/16 at 11:08; Status DC Iohexol 100 ml 100 ml STK-MED ONCE IV Last administered on 06/01/16at 13:18; Start 06/01/16 at 13:18; Stop 06/01/16 at 13:19; Status DC Vancomycin HCl/ Sodium Chloride (Vancomycin Inj/ NS 500 ml Inj) 515 ml @ 250 mls/hr Q24H IV Last administered on 06/06/16at 13:52; Start 06/02/16 at 14:00 ; Stop 06/06/16 at 15:00; Status DC Miscellaneous Information SPECIFIC LAB TO BE DRAWN:VANCOMYCIN TROUGH DATE TO... ONCE ONCE XX Last administered on 06/04/16at 13:55; Start 06/04/16 at 13:45; Stop 06/04/16 at 13:46; Status DC Miscellaneous Information SPECIFIC LAB TO BE DAVID... ONCE ONCE XX Last administered on 06/06/16at 13:45; Start 06/06/16 at 13:45; Stop 06/06/16 at 13 :46; Status DC Warfarin Sodium 3 mg 3 mg DAILY@16 PO Last administered on 06/08/16at 15:40; Start 06/05/16 at 16:00; Stop 06/13/16 at 09:27; Status DC Vancomycin HCl/ Sodium Chloride (Vancomycin Inj/ NS 500 ml Inj) 517.5 ml @ 250 mls/hr Q36H IV Last administered on 06/12/16 18:18; Start 06/08/16 at 06:00; Stop 06/12/16 at 19:09; Status DC Miscellaneous Information SPECIFIC LAB TO BE DRAWN:VANCOMYCIN TROUGH DATE TO... ONCE ONCE XX Last administered on 06/12/16 17:45; Start 06/12/16 at 17:45; Stop 06/12/16 at 17:46; Status DC Gadodiamide (Omniscan Pf Inj) 22 ml STK-MED ONCE IV Last administered on at 10:21; Start 06/07/16 at 10:21; Stop 06/07/16 at 10:22; Status DC Phytonadione 5 mg 5 mg ONCE ONCE SQ Last administered on 06/11/16 06:30; Start 06/11/16 at 06:30; Stop 06/11/16 at 06:31; Status DC Sodium Chloride (NS 250 ml Inj) 250 ml @ 15 mls/hr ONCE ONCE IV Last administered on 06/11/16 00:00; Start 06/11/16 at 15:00; Stop 06/12/16 at 07:39; Status DC Acetaminophen (Tylenol) 650 mg Q4H PRN PO SEE LABEL COMMENTS; Start 06/11/16 at 15:00; Stop 06/11/16 at 19:01; Status DC Diphenhydramine HCl (Benadryl) 25 mg Q4H PRN PO SEE LABEL COMMENTS; Start at 15:00; Stop 06/11/16 at 19:01; Status DC Furosemide (Lasix Inj) 20 mg ONCE ONCE IV Last administered on 06/11/16 04:00 ; Start 06/11/16 at 15:00; Stop 06/11/16 at 15:01; Status DC Phytonadione 5 mg 5 mg ONCE ONCE SQ Last administered on 06/12/16 08:56; Start 06/12/16 at 06:50; Stop 06/12/16 at 06:51; Status DC Vancomycin HCl/ Sodium Chloride (Vancomycin Inj/ NS 500 ml Inj) 515 ml @ 250 mls/hr Q24H IV ; Start 06/13/16 at 18:00; Status Cancel Miscellaneous Information SPECIFIC LAB TO BE DRAWN:VANCO TROUGH DATE TO BE DR... ONCE ONCE XX ; Start 06/14/16 at 17:45; Stop 06/14/16 at 17:46; Status Cancel Vancomycin HCl/ Sodium Chloride (Vancomycin Inj/ NS 500 ml Inj) 517.5 ml @ 250 mls/hr Q36H IV Last administered on 06/20/16 06:30; Start 06/14/16 at 06:00 Sugammadex Sodium (Bridion Inj) 200 mg STK-MED ONCE IV PUSH ; Start 06/13/16 at 06:53; Stop 06/13/16 at 07:00; Status DC Acetaminophen (Ofirmev Inj) 1,000 mg STK-MED ONCE IV ; Start 06/13/16 at 06:53; Stop 06/13/16 at 07:00; Status DC Vancomycin HCl 1000 mg 1,000 mg STK-MED ONCE .ROUTE Last administered on 07:52; Start 06/13/16 at 07:04; Stop 06/13/16 at 07:17; Status DC Cefazolin Sodium/ Dextrose (Ancef 2 Gm Premix) 50 ml @ As Directed STK-MED ONCE .ROUTE Last administered on 06/13/16 07:53; Start 06/13/16 at 07:04; Stop at 07:17; Status DC Bupivacaine HCl/ Epinephrine Bitart (Marcaine-Epi Pf 0.25% Inj) 30 ml STK-MED ONCE .ROUTE Last administered on 06/13/16 07:51; Start 06/13/16 at 07:04; Stop 06/13/16 at 07:17; Status DC Cefazolin Sodium (Ancef Inj) 1,000 mg STK-MED ONCE .ROUTE Last administered on 06/13/16 07:52; Start 06/13/16 at 07:04; Stop 06/13/16 at 07:17; Status DC Gentamicin Sulfate 240 mg 240 mg STK-MED ONCE .ROUTE ; Start 06/13/16 at 07:05; Stop 06/13/16 at 07:17; Status DC Sodium Chloride (NS 250 ml Inj) 250 ml @ As Directed STK-MED ONCE .ROUTE ; Start 06/13/16 at 07:05; Stop 06/13/16 at 07:17; Status DC Ketamine HCl (Ketalar Inj) 500 mg STK-MED ONCE .ROUTE ; Start 06/13/16 at 07:24; Stop 06/13/16 at 07:35; Status DC IV Flush (NS Flush) 2 ml UNSCH PRN IVF FLUSH AFTER USING IV ACCESS; Start at 09:15 IV Flush (NS Flush) 2 ml BID IVF Last administered on 06/20/16 09:35; Start at 21:00 Acetaminophen/ Hydrocodone Bitart ([place] 10-325 Mg) 1 tab Q3H PRN PO PAIN LESS THAN 5 ON SCALE Last administered on 06/19/16 15:12; Start 06/13/16 at 09:15 Acetaminophen/ Hydrocodone Bitart ([place] 10-325 Mg) 2 tab Q6H PRN PO PAIN GREATER THAN/EQUAL TO 5 Last administered on 06/20/16 09:34; Start 06/13/16 at 09:15 Gabapentin (Neurontin) 300 mg TID PO Last administered on 06/20/16 09:32; Start 06/13/16 at 13:00 Morphine Sulfate (Morphine Inj) 4 mg Q3H PRN IV PUSH break thru pain Last administered on 06/14/16 17:52; Start 06/13/16 at 09:15 Warfarin Sodium (Coumadin) 3 mg DAILY@16 PO Last administered on 06/19/16 15:11 ; Start 06/14/16 at 16:00 Albuterol Sulfate (*ALBUTEROL NEB PERIprocedure ONLY) 2.5 mg STK-MED ONCE NEB ; Start 06/13/16 at 09:29; Stop 06/13/16 at 09:30; Status DC Midazolam HCl (Versed Inj) 2 mg STK-MED ONCE .ROUTE ; Start 06/13/16 at 09:30; Stop 06/13/16 at 09:31; Status DC Miscellaneous Information ALL NURSING DEPARTME... UNSCH PRN XX SEE LABEL COMMENTS; Start 06/13/16 at 09:20; Stop 06/14/16 at 09:19; Status DC Miscellaneous Information [facility].. ONCE ONCE XX Last administered on 06/14/16 05:54; Start 06/14/16 at 05:45 ; Stop 06/14/16 at 05:46; Status DC Propofol (Diprivan 200 Mg/20 ml Inj) 200 mg STK-MED ONCE IV ; Start 06/13/16 at 12:00; Stop 06/14/16 at 10:19; Status DC Ondansetron HCl 4 mg 4 mg STK-MED ONCE IV PUSH ; Start 06/13/16 at 12:00; Stop at 10:19; Status DC Lactated Ringer's (Lr 1000 ml Inj) 1,000 ml @ As Directed STK-MED ONCE IV ; Start 06/13/16 at 12:00; Stop 06/14/16 at 10:19; Status DC Ephedrine Sulfate (ePHEDrine/NS 50 MG/5 ML SYR) 50 mg STK-MED ONCE IV ; Start at 12:00; Stop 06/14/16 at 10:19; Status DC Phenylephrine HCl (Neosynephrine/ NS 1000 Mcg/10ml Syr) 1,000 mcg STK-MED ONCE IV ; Start 06/13/16 at 12:00; Stop 06/14/16 at 10:19; Status DC Miscellaneous Information SPECIFIC LAB TO BE DRAWN:VANCOMYCIN TROUGH DATE TO... ONCE ONCE XX Last administered on 06/17/16 05:55; Start 06/17/16 at 05:45; Stop 06/17/16 at 05:46; Status DC Acetaminophen (Ofirmev Inj) 650 mg ONCE ONCE IV Last administered on 06/15/16 01:23; Start 06/15/16 at 01:15; Stop 06/15/16 at 01:16; Status DC Warfarin Sodium 2 mg 2 mg ONCE PO Last administered on 06/15/16 18:10; Start at 16:00; Stop 06/15/16 at 21:00; Status DC Sodium Chloride (NS 1000 ml Inj) 1,000 ml @ 70 mls/hr [id number] IV Last administered on 06/16/16 02:40; Start 06/15/16 at 11:38; Stop 06/16/16 at 09:35; Status DC Aspirin (Aspirin Chew) 162 mg NOW STAT PO Last administered on 06/15/16 12:27 ; Start 06/15/16 at 12:16; Stop 06/15/16 at 12:21; Status DC Atorvastatin Calcium 20 mg 20 mg HS PO Last administered on 06/19/16 21:48; Start 06/15/16 at 21:00 Sodium Chloride 1,000 ml @ 999 mls/hr BOLUS ONCE IV Last administered on 15:14; Start 06/15/16 at 12:30; Stop 06/15/16 at 13:30; Status DC Sodium Chloride 250 ml @ 15 mls/hr ONCE ONCE IV Last administered on 12:33; Start 06/16/16 at 09:30; Stop 06/17/16 at 02:09; Status DC Ceftriaxone Sodium 1000 mg/ Sodium Chloride 100 ml @ 200 mls/hr Q24H IV Last administered on 06/16/16 12:33; Start 06/16/16 at 10:00; Stop 06/16/16 at 17:43; Status DC Piperacillin Sod/ Tazobactam Sod 50 ml @ 100 mls/hr Q6H IV Last administered on 06/20/16 09:32; Start 06/16/16 at 20:00 Sodium Chloride (NS 500 ml Inj) 500 ml @ 50 mls/hr Q10H ONCE IV Last administered on 06/18/16 13:34; Start 06/18/16 at 13:15; Stop 06/18/16 at 23:14; Status DC A/P Assessment and Plan A/P s/p left AKA - Post surgical management post operative pain rehabilitation as per surgical service - continue IV Abx per ID. Appreciate rehabilitation medicine's recommendations concerning long-term recommendations in rehabilitation and improvement of ADL bilateral wheezing- continue neb treatment- one dose of IV lasix today- will monitor Acute kidney injury improved on IV hydration- Adjust vancomycin dosing - monitor renal function. Previous Sepsis on admission. Resolved. - Initially thought to be secondary to Natalie UTI, however most likely secondary to osteomyelitis. Acute Anemia. Currently asymptomatic -Slow decline. Likely anemia of inflammation - - s/p PRBC transfusion with improved H/H. -GI consult appreciated; no plan for colonoscopy at this time. Type 2 diabetes. Overall Control. Continue sliding scale insulin. Atrial fibrillation. Currently heart rate is controlled. Restarted warfarin - PT/INR monitoring. Diabetic neuropathy. Chronic. Continue gabapentin. Tobaccoism. Recommend cessation. Hypertension and now borderline hypotensive due to infection. Hold all antihypertensives . UTI. On admission with Natalie glabrata. Status post diflucan. DVT Prophylaxis. Coumadin restarted . Ronn Pugh MD Jun 20, 2016 10:37
[2016-06-20] MEDS ORDERED: FUROSEMIDE 20 MG/2 ML VIAL IV PUSH ONE (10:45)
[2016-06-20] MEDS: WARFARIN SOD 3 MG TAB PO SCH (14:58)
--- NOTE | 2016-06-20 18:58 | PD.POD ---
Subjective Podiatric Problems RLE ulcerations. Status post left BKA. The wounds a mildly painful. He denies any n/v/f/h/c/sob. Pain scale used: 0-10 numeric scale Pain score: 2 Past Med/Surg/Social History Social History Smoking Status: Never Smoker Objective Vital Signs Vital Signs Date Time Temp Pulse Resp B/P Pulse Ox O2 Delivery O2 Flow Rate FiO2 06/20/16 18:13 94 Nasal Cannula 2.00 06/20/16 16:00 97.6 83 20 127/67 94 06/20/16 12:00 98.0 87 20 146/80 97 06/20/16 10:20 99 Nasal Cannula 2.00 06/20/16 08:00 Nasal Cannula 2.00 06/20/16 08:00 97.5 74 20 122/65 99 06/20/16 04:00 97.7 80 20 119/65 06/20/16 00:00 98.2 81 20 142/71 96 06/19/16 21:53 Nasal Cannula 2.00 06/19/16 20:30 Nasal Cannula 2.00 06/19/16 20:00 98.2 84 20 129/72 98 06/19/16 20:00 80 Coded Allergies: *MDRO Multi-Drug Resistant Organism (Verified Adverse Reaction, Unknown, MRSA, 05/29/16) MRSA (toe wound) - 01/27/16; (foot) - 05/24/16 MRSA PCR Screen POSITIVE - 05/26/16 Physical Exam Remarks LLE BKA RLE: non palpable pulses, CFT < 3 secs, decreased protective sensation, biomechnical exam deferred Posterior leg wound 10cm x 4cm x 0.25cm exposed achilles tendon, wound bed is a mix of fibrotic/granular/necrotic/tendon, mild sanginous drainage, no erythema, no malodor Plantar lateral heel stable fibrotic wound 1.0cm x 1.0cm x 0, no signs of infection Lateral leg stable eschars 1.5cm x 1.5cm x 0, no signs of infection Assessment & Plan A/P 1) RLEstage 2/3 LE ulcerations -con't daily wound care with santyl and dry dressing -pt is at high risk for limb loss, but given the impaired vascular status options are limited from a surgical standpoint. Will plan to continue treating conservatively. -wounds are stable and pt is ok to d/c from a podiatry stand point -f/u with Dr.Hilaree Mackay 1 week after d/c Lilly Anaya DPM Jun 20, 2016 18:58
[2016-06-20] MEDS: ATORVASTATIN 20 MG TAB PO SCH (21:10)
--- NOTE | 2016-06-20 22:24 | HHI.IDPN ---
Subjective Subjective Remarks sp L AKA fever resolved in 1-2 days of empirivc abx blood clx were negatove urine clx repeatedly grew out C. glabrata pt feels Ok Antibiotics zosyn vancomycin Allergies: Coded Allergies: *MDRO Multi-Drug Resistant Organism (Verified Adverse Reaction, Unknown, MRSA, 05/29/16) MRSA (toe wound) - 01/27/16; (foot) - 05/24/16 MRSA PCR Screen POSITIVE - 05/26/16 Objective . Vital Signs Date Time Temp Pulse Resp B/P Pulse Ox O2 Delivery O2 Flow Rate FiO2 06/20/16 18:13 94 Nasal Cannula 2.00 06/20/16 16:00 97.6 83 20 127/67 94 06/20/16 12:00 98.0 87 20 146/80 97 06/20/16 10:20 99 Nasal Cannula 2.00 06/20/16 08:00 Nasal Cannula 2.00 06/20/16 08:00 75 06/20/16 08:00 97.5 74 20 122/65 99 06/20/16 04:00 97.7 80 20 119/65 06/20/16 00:00 98.2 81 20 142/71 96 06/19/16 06/19/16 06/20/16 15:00 23:00 07:00 Intake Total 540 ml 395 ml 155 ml Output Total 575 ml 0 ml 0 ml Balance -35 ml 395 ml 155 ml Intake Oral 480 ml 240 ml 0 ml IV Total 60 ml 155 ml 155 ml Output Urine Total 575 ml 0 ml 0 ml # Bowel Movements 0 0 0 . Laboratory Tests Test 06/19/16 05:25 White Blood Count 7.9 TH/MM3 Red Blood Count 3.02 MIL/MM3 Hemoglobin 9.3 GM/DL Hematocrit 27.4 % Mean Corpuscular Volume 90.8 FL Mean Corpuscular Hemoglobin 30.9 PG Mean Corpuscular Hemoglobin 34.1 % Concent Red Cell Distribution Width 17.3 % Platelet Count 203 TH/MM3 Mean Platelet Volume 8.0 FL Neutrophils (%) (Auto) 68.1 % Lymphocytes (%) (Auto) 14.7 % Monocytes (%) (Auto) 11.8 % Eosinophils (%) (Auto) 4.0 % Basophils (%) (Auto) 1.4 % Neutrophils # (Auto) 5.4 TH/MM3 Lymphocytes # (Auto) 1.2 TH/MM3 Monocytes # (Auto) 0.9 TH/MM3 Eosinophils # (Auto) 0.3 TH/MM3 Basophils # (Auto) 0.1 TH/MM3 CBC Comment DIFF FINAL Differential Comment Laboratory Tests Test 06/19/16 06/20/16 05:25 06:21 Sodium Level 140 MEQ/L Potassium Level 3.7 MEQ/L Chloride Level 105 MEQ/L Carbon Dioxide Level 27.3 MEQ/L Anion Gap 8 MEQ/L Blood Urea Nitrogen 15 MG/DL Creatinine 1.37 MG/DL 1.16 MG/DL Estimat Glomerular Filtration 52 ML/MIN 63 ML/MIN Rate Random Glucose 131 MG/DL Calcium Level 8.2 MG/DL Total Bilirubin 0.4 MG/DL Aspartate Amino Transf 17 U/L (AST/SGOT) Alanine Aminotransferase 18 U/L (ALT/SGPT) Alkaline Phosphatase 54 U/L Total Protein 5.9 GM/DL Albumin 2.0 GM/DL Imaging Last Impressions Brain MRI 06/15/16 1143 Signed Impressions: Service Date/Time: June 12:49 - CONCLUSION: 1. Cerebral atrophy and extensive chronic ischemic small vessel vasculopathy. 2. No acute infarction. Subhash Arteaga MD Chest X-Ray 06/15/16 0000 Signed Impressions: Service Date/Time: June 12:12 - CONCLUSION: Bilateral mainly basilar infiltrates and bilateral effusions Bret Vidal MD Carotid Artery Ultrasound 06/15/16 0000 Signed Impressions: Service Date/Time: June 18:56 - CONCLUSION: 1. Bilateral carotid bifurcation atherosclerosis, moderate on the right and mild on the left. No hemodynamically significant narrowing on either side. 2. Limited study and the vertebral arteries are not well-visualized today. They had antegrade flow within them on the prior ultrasound. Bret Truong MD Foot MRI 06/07/16 0000 Signed Impressions: Service Date/Time: Tuesday, June 07, 2016 09:34 - CONCLUSION: 1. Deep soft tissue ulcer of the midfoot and with associated osteomyelitis of the plantar/lateral aspect of the fourth metatarsal base and mid to distal cuboid. Please see above. Fifth metatarsal previously resected. 2. Second toe amputation since the prior MRI. Indurated soft tissues and focal cortical destruction seen of the second metatarsal head remnant. No deep osteomyelitis of the second metatarsal. 3. No soft tissue abscesses are demonstrated. 4. Apparent cellulitis of the heel pad. No calcaneal osteomyelitis demonstrated. Bret Truong MD Ankle MRI 06/07/16 0000 Signed Impressions: Service Date/Time: Tuesday, June 07, 2016 09:34 - CONCLUSION: 1. No evidence of osteomyelitis. 2. Old healed fracture of the distal fibula. 3. Subcutaneous nonspecific edema. Juan Bonilla MD Upper Extremity Ultrasound 06/05/16 0000 Signed Impressions: Service Date/Time: Sunday, June 05, 2016 20:02 - CONCLUSION: Normal examination. KNoam Izaguirre MD Aorta w/Runoff CTA 06/01/16 0000 Signed Impressions: Service Date/Time: May 12:13 - CONCLUSION: 1. Heavily diseased but adequate in flow down to the level of the groin bilaterally. 2. 3. Right le. Diffusely diseased superficial femoral artery with multiple areas of moderate and scattered areas of high grade stenosis. The popliteal is diseased but adequate in caliber. Distally, there is single vessel runoff into the foot via the anterior tibial. 5. 6. Left le. Heavily diseased superficial femoral with scattered areas of moderate and high grade stenosis. The popliteal is heavily diseased as well. Distally, there is occlusion of the origin of all 3 trifurcation vessels. Eventually, there is reconstitution of the anterior tibial and posterior tibial. Aric Cazares MD Head CT 05/24/16 1217 Signed Impressions: Service Date/Time: Tuesday, May 24, 2016 12:55 - CONCLUSION: 1. No acute intracranial abnormality. 2. Atrophy. 3. Chronic small vessel ischemic change. Juvenal Jarquin Jr., MD Physical Exam CONSTITUTIONAL/GENERAL: This is an obese elderly patient, in no apparent distress. SKIN: No jaundice, rashes, or lesions. Skin temperature appropriate. Not diaphoretic. EYES: No scleral icterus. No injection or drainage. ENT: Oral mucosae moist without visible erythema, exudates, masses, or lesions. Edentulous CARDIOVASCULAR: Regular rate and rhythm without murmurs, gallops, or rubs. RESPIRATORY/CHEST: Symmetric, unlabored respirations. Clear to auscultation. GASTROINTESTINAL: Abdomen soft, non-tender, nondistended. Bowel sounds present. GENITOURINARY: Without palpable bladder distension. Condom catheter in place with cloudy yellow urine MUSCULOSKELETAL: Extremities without clubbing, cyanosis, R foot with dressing in place with 50% necrotic tisue i the wound bed L LE sp AKA NEUROLOGICAL: Awake and alert. Motor and sensory grossly within normal limits. Follows commands. speech normal Moves all extremities. 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
[2016-06-21] VITALS (8 sets, daily range): BP systolic 119–166; BP diastolic 63–86; PULSE 82–92; RESP 18–20; TEMP 97.2–98; O2SAT 91–99
[2016-06-21] MEDS: PIPERACIL-TAZO 3.375 GM PREMIX 50 ML IV SCH ×3 (03:27→14:10)
[2016-06-21] MEDS: INSULIN ASPART SUPPLEMENTAL SCALE SQ SCH ×3 (04:09→16:53)
[2016-06-21 07:28] LABS: INTERNATIONAL NORMALIZED RATIO 1.9 RATIO; PROTHROMBIN TIME - PATIENT 21.8 SEC (9.8-11.6)
[2016-06-21] MEDS: SODIUM CHLORIDE 0.9% FLUSH 5 ML FLUSH IVF SCH ×2 (09:00→22:21)
[2016-06-21] MEDS: GABAPENTIN 300 MG CAP PO SCH ×3 (09:10→16:53)
[2016-06-21] MEDS: PANTOPRAZOLE SOD 40 MG DELAYED RELEASE TAB PO SCH (09:10)
[2016-06-21] MEDS: ACETAMINOPHEN/HYDROcodone 325 MG/10 MG TAB PO PRN ×2 (09:10→16:53)
[2016-06-21] MEDS: TAMSULOSIN HCL 0.4 MG CAP PO SCH (09:10)
[2016-06-21] MEDS: COLLAGENASE OINT 30 GM TUBE TOP SCH (09:19)
--- NOTE | 2016-06-21 09:45 | HHI.PR ---
Subjective Remarks in no distress. afebrile. pain is controlled. Objective Vitals Vital Signs Date Time Temp Pulse Resp B/P Pulse Ox O2 Delivery O2 Flow Rate FiO2 06/21/16 04:00 97.2 84 18 142/82 99 06/21/16 00:00 98.0 92 18 166/86 97 06/20/16 21:25 2.00 06/20/16 20:12 84 06/20/16 20:00 97.9 84 20 139/75 98 06/20/16 18:13 94 Nasal Cannula 2.00 06/20/16 16:00 97.6 83 20 127/67 94 06/20/16 12:00 98.0 87 20 146/80 97 06/20/16 10:20 99 Nasal Cannula 2.00 I/O 06/20/16 06/20/16 06/20/16 06/21/16 06/21/16 06/21/16 07:00 15:00 23:00 07:00 15:00 23:00 Intake Total 155 ml 1064 ml 468 ml 412 ml Output Total 0 ml 500 ml 300 ml 50 ml Balance 155 ml 564 ml 168 ml 362 ml Intake Oral 0 ml 480 ml 360 ml 360 ml IV Total 155 ml 584 ml 108 ml 52 ml Output Urine Total 0 ml 500 ml 300 ml 50 ml # Bowel Movements 0 0 0 0 Result Diagram: 06/19/16 0525 06/20/16 0621 Imaging Last Impressions Brain MRI 06/15/16 1143 Signed Impressions: Service Date/Time: June 12:49 - CONCLUSION: 1. Cerebral atrophy and extensive chronic ischemic small vessel vasculopathy. 2. No acute infarction. Subhash Arteaga MD Chest X-Ray 06/15/16 0000 Signed Impressions: Service Date/Time: June 12:12 - CONCLUSION: Bilateral mainly basilar infiltrates and bilateral effusions Bret Vidal MD Carotid Artery Ultrasound 06/15/16 0000 Signed Impressions: Service Date/Time: June 18:56 - CONCLUSION: 1. Bilateral carotid bifurcation atherosclerosis, moderate on the right and mild on the left. No hemodynamically significant narrowing on either side. 2. Limited study and the vertebral arteries are not well-visualized today. They had antegrade flow within them on the prior ultrasound. Bret Truong MD Foot MRI 06/07/16 0000 Signed Impressions: Service Date/Time: Tuesday, June 07, 2016 09:34 - CONCLUSION: 1. Deep soft tissue ulcer of the midfoot and with associated osteomyelitis of the plantar/lateral aspect of the fourth metatarsal base and mid to distal cuboid. Please see above. Fifth metatarsal previously resected. 2. Second toe amputation since the prior MRI. Indurated soft tissues and focal cortical destruction seen of the second metatarsal head remnant. No deep osteomyelitis of the second metatarsal. 3. No soft tissue abscesses are demonstrated. 4. Apparent cellulitis of the heel pad. No calcaneal osteomyelitis demonstrated. Bret Truong MD Ankle MRI 06/07/16 0000 Signed Impressions: Service Date/Time: Tuesday, June 07, 2016 09:34 - CONCLUSION: 1. No evidence of osteomyelitis. 2. Old healed fracture of the distal fibula. 3. Subcutaneous nonspecific edema. Juan Bonilla MD Upper Extremity Ultrasound 06/05/16 0000 Signed Impressions: Service Date/Time: Sunday, June 05, 2016 20:02 - CONCLUSION: Normal examination. KNoam Izaguirre MD Aorta w/Runoff CTA 06/01/16 0000 Signed Impressions: Service Date/Time: May 12:13 - CONCLUSION: 1. Heavily diseased but adequate in flow down to the level of the groin bilaterally. 2. 3. Right le. Diffusely diseased superficial femoral artery with multiple areas of moderate and scattered areas of high grade stenosis. The popliteal is diseased but adequate in caliber. Distally, there is single vessel runoff into the foot via the anterior tibial. 5. 6. Left le. Heavily diseased superficial femoral with scattered areas of moderate and high grade stenosis. The popliteal is heavily diseased as well. Distally, there is occlusion of the origin of all 3 trifurcation vessels. Eventually, there is reconstitution of the anterior tibial and posterior tibial. Aric Cazares MD Head CT 05/24/16 1217 Signed Impressions: Service Date/Time: Tuesday, May 24, 2016 12:55 - CONCLUSION: 1. No acute intracranial abnormality. 2. Atrophy. 3. Chronic small vessel ischemic change. Juvenal Jarquin Jr., MD Objective Remarks GENERAL: This is a well-nourished, well-developed patient, in no apparent distress. CARDIOVASCULAR: Regular rate and regular rhythm without murmurs, gallops, or rubs. RESPIRATORY: Clear to auscultation. Breath sounds equal bilaterally. No wheezes , rales, or rhonchi. GASTROINTESTINAL: Abdomen soft, non-tender, distended. Normal, active bowel sounds MUSCULOSKELETAL: s/p left AKA NEURO: Alert & Oriented x4 to person, place, time, situation. Moves all ext x4 Procedures left AKA Medications and IVs Current Medications IV Flush 2 ml 2 ml UNSCH PRN IVF FLUSH AFTER USING IV ACCESS; Start 05/24/16 at 12:30; Stop 05/24/16 at 15:31; Status DC Sodium Chloride 1,000 ml @ 1,000 mls/hr Q1H IV Last administered on at 13:23; Start 05/24/16 at 12:17; Stop 05/24/16 at 13:16; Status DC Piperacillin Sod/ Tazobactam Sod 100 ml @ 200 mls/hr ONCE ONCE IV Last administered on 05/24/16at 13:23; Start 05/24/16 at 12:30; Stop 05/24/16 at 12 :59; Status DC Vancomycin HCl/ Sodium Chloride (Vancomycin Inj/ NS 250 ml Inj) 250 ml @ 250 mls/hr ONCE ONCE IV Last administered on 05/24/16at 14:47; Start 05/24/16 at 12:30; Stop 05/24/16 at 13:29; Status DC Calcium Gluconate (Calcium Gluconate Inj) 1 gm ONCE ONCE SLOW IVP Last administered on 05/24/16at 14:40; Start 05/24/16 at 13:45; Stop 05/24/16 at 13 :46; Status DC Insulin Human Regular (NovoLIN R INJ) 10 units ONCE ONCE IV PUSH Last administered on 05/24/16at 14:39; Start 05/24/16 at 14:00; Stop 05/24/16 at 14 :01; Status DC Dextrose (D50w (Vial) Inj) 50 ml ONCE ONCE IV PUSH Last administered on at 14:39; Start 05/24/16 at 13:45; Stop 05/24/16 at 13:46; Status DC Sodium Bicarbonate (Sodium Bicarbonate 8.4% Inj) 50 meq ONCE ONCE SLOW IVP Last administered on 05/24/16at 14:23; Start 05/24/16 at 13:45; Stop 05/24/16 at 13:46; Status DC Albuterol Sulfate (Albuterol Concentrated Neb) 10 mg ONCE ONCE INH Last administered on 05/24/16at 14:58; Start 05/24/16 at 13:45; Stop 05/24/16 at 13 :46; Status DC Sodium Polystyrene Sulfonate 15 gm 15 gm ONCE ONCE PO Last administered on at 14:18; Start 05/24/16 at 13:45; Stop 05/24/16 at 13:46; Status DC Sodium Chloride 1,000 ml @ 999 mls/hr BOLUS ONCE IV Last administered on at 14:40; Start 05/24/16 at 14:00; Stop 05/24/16 at 15:00; Status DC Sodium Chloride (NS 1000 ml Inj) 1,000 ml @ 150 mls/hr Q6H40M IV Last administered on 05/29/16at 02:20; Start 05/24/16 at 14:33; Stop 05/29/16 at 14 :38; Status DC IV Flush (NS Flush) 2 ml UNSCH PRN IV FLUSH FLUSH AFTER USING IV ACCESS; Start 05/24/16 at 14:45; Stop 06/13/16 at 09:19; Status DC IV Flush (NS Flush) 2 ml BID IV FLUSH Last administered on 06/12/16t 23:09; Start 05/24/16 at 21:00; Stop 06/13/16 at 09:19; Status DC Pantoprazole Sodium (Protonix Inj) 40 mg DAILY IV Last administered on at 08:47; Start 05/24/16 at 15:30; Stop 05/29/16 at 14:39; Status DC Albuterol/ Ipratropium (Duoneb Neb) 1 ampule Q2HR NEB PRN INH WHEEZING; Start 05/24/16 at 14:45 Miscellaneous Information 1 Q361D XX Last administered on 05/24/16at 17:09; Start 05/24/16 at 14:45 Chlorhexidine Gluconate (Chlorhexidine 2% Cloth) 3 pack Taper DAILY@04 TOP Last administered on 05/25/16at 04:00; Start 05/25/16 at 04:00; Stop 05/29/16 at 14:38; Status DC Chlorhexidine Gluconate 3 pack 3 pack UNSCH PRN TOP HYGIENIC CARE; Start 05/24 at 14:45; Stop 05/29/16 at 14:38; Status DC Cefepime HCl 500 mg/Sodium Chloride 100 ml @ 200 mls/hr Q24H IV Last administered on 05/25/16at 16:29; Start 05/24/16 at 16:00; Stop 05/26/16 at 12 :54; Status DC Pharmacy Profile Note (Coumadin Consult Pharmacy) 0 ml @ 0 mls/hr UNSCH OTHER ; Start 05/24/16 at 14:45 Insulin Aspart 1 1 Q6HR SQ Last administered on 06/21/16 04:09; Start at 15:30 Piperacillin Sod/ Tazobactam Sod 50 ml @ 100 mls/hr Q8H IV Last administered on 05/25/16at 05:24; Start 05/24/16 at 21:00; Stop 05/25/16 at 10:27; Status DC Pharmacy Profile Note (Vancomycin Consult Pharmacy) 0 ml @ 0 mls/hr UNSCH OTHER ; Start 05/24/16 at 16:15 Collagenase (Santyl Oint) 1 applic DAILY TOP Last administered on 06/21/16 09: 19; Start 05/25/16 at 09:00 Miscellaneous Information SPECIFIC LAB TO BE DRAWN:VANCOMYCIN RANDOM DATE TO... ONCE ONCE XX ; Start 05/25/16 at 14:00; Stop 05/25/16 at 14:00; Status DC Acetaminophen/ Hydrocodone Bitart 1 tab 1 tab Q6H PRN PO PAIN Last administered on 06/12/16 23:34; Start 05/24/16 at 23:45; Stop 06/13/16 at 09:21 ; Status DC Norepinephrine Bitartrate 250 ml @ 0 mls/hr TITRATE IV Last administered on at 01:07; Start 05/25/16 at 00:30; Stop 05/25/16 at 07:07; Status DC Piperacillin Sod/ Tazobactam Sod 50 ml @ 100 mls/hr Q8H IV Last administered on 05/29/16at 20:39; Start 05/25/16 at 13:00; Stop 05/29/16 at 23:06; Status DC Vancomycin HCl/ Sodium Chloride (Vancomycin Inj/ NS 250 ml Inj) 250 ml @ 250 mls/hr ONCE ONCE IV Last administered on 05/25/16at 11:49; Start 05/25/16 at 12:00; Stop 05/25/16 at 12:59; Status DC Miscellaneous Information SPECIFIC LAB TO BE DRAWN:RANDOM LEVEL DATE TO BE DR... ONCE ONCE XX Last administered on 05/26/16at 05:19; Start 05/26/16 at 06:00; Stop 05/26/16 at 06:01; Status DC Sodium Chloride (NS 250 ml Inj) 250 ml @ 15 mls/hr ONCE ONCE IV Last administered on 05/26/16at 09:40; Start 05/26/16 at 06:00; Stop 05/26/16 at 22 :39; Status DC Furosemide 20 mg 20 mg ONCE ONCE IV Last administered on 05/26/16at 12:37; Start 05/26/16 at 06:00; Stop 05/26/16 at 06:01; Status DC Vancomycin HCl/ Sodium Chloride (Vancomycin Inj/ NS 250 ml Inj) 262.5 ml @ 250 mls/hr Q24H IV Last administered on 05/29/16at 12:21; Start 05/26/16 at 12:00 ; Stop 05/29/16 at 15:10; Status DC Miscellaneous Information SPECIFIC LAB TO BE DAVID... ONCE ONCE XX ; Start 05/29 at 11:45; Stop 05/29/16 at 11:46; Status DC Cefepime HCl/ Sodium Chloride (Maxipime Inj/NS Inj) 100 ml @ 200 mls/hr Q24H IV Last administered on 05/27/16at 17:36; Start 05/26/16 at 16:00; Stop 05/28 at 09:04; Status DC Fluconazole (Diflucan) 200 mg DAILY PO Last administered on 06/12/16t 08:58; Start 05/27/16 at 09:00; Stop 06/12/16 at 13:42; Status DC Warfarin Sodium (Coumadin) 5 mg DAILY@1600 PO Last administered on 05/29/16at 15:45; Start 05/27/16 at 16:00; Stop 05/31/16 at 11:40; Status DC Warfarin Sodium 0.5 mg 0.5 mg DAILY@16 PO Last administered on 05/29/16at 15:45 ; Start 05/27/16 at 16:00; Stop 05/31/16 at 11:37; Status DC Cefepime HCl/ Sodium Chloride (Maxipime Inj/NS Inj) 100 ml @ 200 mls/hr Q12H IV Last administered on 05/29/16at 08:46; Start 05/28/16 at 10:00; Stop 05/29 at 09:20; Status DC Warfarin Sodium (Coumadin) 7.5 mg ONCE ONCE PO Last administered on at 17:02; Start 05/28/16 at 16:00; Stop 05/28/16 at 16:01; Status DC Tamsulosin HCl (Flomax) 0.4 mg DAILY PO Last administered on 06/21/16 09:10; Start 05/28/16 at 15:00 Pantoprazole Sodium (Protonix) 40 mg DAILY PO Last administered on 06/21/16 09 :10; Start 05/30/16 at 09:00 Bumetanide 1 mg 1 mg ONCE ONCE IV PUSH Last administered on 05/29/16at 15:45; Start 05/29/16 at 15:00; Stop 05/29/16 at 15:01; Status DC Vancomycin HCl/ Sodium Chloride (Vancomycin Inj/ NS 250 ml Inj) 262.5 ml @ 262.5 mls/ hr Q18H IV Last administered on 05/30/16at 06:07; Start 05/30/16 at 06:00; Stop 05/30/16 at 11:27; Status DC Miscellaneous Information SPECIFIC LAB TO BE DAVID... ONCE ONCE XX ; Start 05/30 at 23:45; Stop 05/30/16 at 23:46; Status Cancel Vancomycin HCl/ Sodium Chloride (Vancomycin Inj/ NS 500 ml Inj) 515 ml @ 250 mls/hr Q18H IV Last administered on 06/01/16at 13:28; Start 05/31/16 at 00:00 ; Stop 06/01/16 at 14:39; Status DC Miscellaneous Information SPECIFIC LAB TO BE DRAWN:VANCOMYCIN TROUGH DATE TO... ONCE ONCE XX Last administered on 06/01/16at 13:27; Start 06/01/16 at 11:45; Stop 06/01/16 at 11:46; Status DC Warfarin Sodium (Coumadin) 4 mg DAILY@16 PO Last administered on 06/02/16at 16: 19; Start 05/31/16 at 16:00; Stop 06/05/16 at 11:08; Status DC Iohexol 100 ml 100 ml STK-MED ONCE IV Last administered on 06/01/16at 13:18; Start 06/01/16 at 13:18; Stop 06/01/16 at 13:19; Status DC Vancomycin HCl/ Sodium Chloride (Vancomycin Inj/ NS 500 ml Inj) 515 ml @ 250 mls/hr Q24H IV Last administered on 06/06/16at 13:52; Start 06/02/16 at 14:00 ; Stop 06/06/16 at 15:00; Status DC Miscellaneous Information SPECIFIC LAB TO BE DRAWN:VANCOMYCIN TROUGH DATE TO... ONCE ONCE XX Last administered on 06/04/16at 13:55; Start 06/04/16 at 13:45; Stop 06/04/16 at 13:46; Status DC Miscellaneous Information SPECIFIC LAB TO BE DAVID... ONCE ONCE XX Last administered on 06/06/16at 13:45; Start 06/06/16 at 13:45; Stop 06/06/16 at 13 :46; Status DC Warfarin Sodium 3 mg 3 mg DAILY@16 PO Last administered on 06/08/16at 15:40; Start 06/05/16 at 16:00; Stop 06/13/16 at 09:27; Status DC Vancomycin HCl/ Sodium Chloride (Vancomycin Inj/ NS 500 ml Inj) 517.5 ml @ 250 mls/hr Q36H IV Last administered on 06/12/16 18:18; Start 06/08/16 at 06:00; Stop 06/12/16 at 19:09; Status DC Miscellaneous Information SPECIFIC LAB TO BE DRAWN:VANCOMYCIN TROUGH DATE TO... ONCE ONCE XX Last administered on 06/12/16 17:45; Start 06/12/16 at 17:45; Stop 06/12/16 at 17:46; Status DC Gadodiamide (Omniscan Pf Inj) 22 ml STK-MED ONCE IV Last administered on at 10:21; Start 06/07/16 at 10:21; Stop 06/07/16 at 10:22; Status DC Phytonadione 5 mg 5 mg ONCE ONCE SQ Last administered on 06/11/16 06:30; Start 06/11/16 at 06:30; Stop 06/11/16 at 06:31; Status DC Sodium Chloride (NS 250 ml Inj) 250 ml @ 15 mls/hr ONCE ONCE IV Last administered on 06/11/16 00:00; Start 06/11/16 at 15:00; Stop 06/12/16 at 07:39; Status DC Acetaminophen (Tylenol) 650 mg Q4H PRN PO SEE LABEL COMMENTS; Start 06/11/16 at 15:00; Stop 06/11/16 at 19:01; Status DC Diphenhydramine HCl (Benadryl) 25 mg Q4H PRN PO SEE LABEL COMMENTS; Start at 15:00; Stop 06/11/16 at 19:01; Status DC Furosemide (Lasix Inj) 20 mg ONCE ONCE IV Last administered on 06/11/16 04:00 ; Start 06/11/16 at 15:00; Stop 06/11/16 at 15:01; Status DC Phytonadione 5 mg 5 mg ONCE ONCE SQ Last administered on 06/12/16 08:56; Start 06/12/16 at 06:50; Stop 06/12/16 at 06:51; Status DC Vancomycin HCl/ Sodium Chloride (Vancomycin Inj/ NS 500 ml Inj) 515 ml @ 250 mls/hr Q24H IV ; Start 06/13/16 at 18:00; Status Cancel Miscellaneous Information SPECIFIC LAB TO BE DRAWN:VANCO TROUGH DATE TO BE DR... ONCE ONCE XX ; Start 06/14/16 at 17:45; Stop 06/14/16 at 17:46; Status Cancel Vancomycin HCl/ Sodium Chloride (Vancomycin Inj/ NS 500 ml Inj) 517.5 ml @ 250 mls/hr Q36H IV Last administered on 06/20/16 06:30; Start 06/14/16 at 06:00 Sugammadex Sodium (Bridion Inj) 200 mg STK-MED ONCE IV PUSH ; Start 06/13/16 at 06:53; Stop 06/13/16 at 07:00; Status DC Acetaminophen (Ofirmev Inj) 1,000 mg STK-MED ONCE IV ; Start 06/13/16 at 06:53; Stop 06/13/16 at 07:00; Status DC Vancomycin HCl 1000 mg 1,000 mg STK-MED ONCE .ROUTE Last administered on 07:52; Start 06/13/16 at 07:04; Stop 06/13/16 at 07:17; Status DC Cefazolin Sodium/ Dextrose (Ancef 2 Gm Premix) 50 ml @ As Directed STK-MED ONCE .ROUTE Last administered on 06/13/16 07:53; Start 06/13/16 at 07:04; Stop at 07:17; Status DC Bupivacaine HCl/ Epinephrine Bitart (Marcaine-Epi Pf 0.25% Inj) 30 ml STK-MED ONCE .ROUTE Last administered on 06/13/16 07:51; Start 06/13/16 at 07:04; Stop 06/13/16 at 07:17; Status DC Cefazolin Sodium (Ancef Inj) 1,000 mg STK-MED ONCE .ROUTE Last administered on 06/13/16 07:52; Start 06/13/16 at 07:04; Stop 06/13/16 at 07:17; Status DC Gentamicin Sulfate 240 mg 240 mg STK-MED ONCE .ROUTE ; Start 06/13/16 at 07:05; Stop 06/13/16 at 07:17; Status DC Sodium Chloride (NS 250 ml Inj) 250 ml @ As Directed STK-MED ONCE .ROUTE ; Start 06/13/16 at 07:05; Stop 06/13/16 at 07:17; Status DC Ketamine HCl (Ketalar Inj) 500 mg STK-MED ONCE .ROUTE ; Start 06/13/16 at 07:24; Stop 06/13/16 at 07:35; Status DC IV Flush (NS Flush) 2 ml UNSCH PRN IVF FLUSH AFTER USING IV ACCESS; Start at 09:15 IV Flush (NS Flush) 2 ml BID IVF Last administered on 06/21/16 09:00; Start at 21:00 Acetaminophen/ Hydrocodone Bitart ([place] 10-325 Mg) 1 tab Q3H PRN PO PAIN LESS THAN 5 ON SCALE Last administered on 06/19/16 15:12; Start 06/13/16 at 09:15 Acetaminophen/ Hydrocodone Bitart ([place] 10-325 Mg) 2 tab Q6H PRN PO PAIN GREATER THAN/EQUAL TO 5 Last administered on 06/21/16 09:10; Start 06/13/16 at 09:15 Gabapentin (Neurontin) 300 mg TID PO Last administered on 06/21/16 09:10; Start 06/13/16 at 13:00 Morphine Sulfate (Morphine Inj) 4 mg Q3H PRN IV PUSH break thru pain Last administered on 06/14/16 17:52; Start 06/13/16 at 09:15 Warfarin Sodium (Coumadin) 3 mg DAILY@16 PO Last administered on 06/20/16 14: 58; Start 06/14/16 at 16:00 Albuterol Sulfate (*ALBUTEROL NEB PERIprocedure ONLY) 2.5 mg STK-MED ONCE NEB ; Start 06/13/16 at 09:29; Stop 06/13/16 at 09:30; Status DC Midazolam HCl (Versed Inj) 2 mg STK-MED ONCE .ROUTE ; Start 06/13/16 at 09:30; Stop 06/13/16 at 09:31; Status DC Miscellaneous Information ALL NURSING DEPARTME... UNSCH PRN XX SEE LABEL COMMENTS; Start 06/13/16 at 09:20; Stop 06/14/16 at 09:19; Status DC Miscellaneous Information SPECIFIC LAB TO BE DRAWN:VANCO TROUGH DATE TO BE DRNoam.. ONCE ONCE XX Last administered on 06/14/16 05:54; Start 06/14/16 at 05:45 ; Stop 06/14/16 at 05:46; Status DC Propofol (Diprivan 200 Mg/20 ml Inj) 200 mg STK-MED ONCE IV ; Start 06/13/16 at 12:00; Stop 06/14/16 at 10:19; Status DC Ondansetron HCl 4 mg 4 mg STK-MED ONCE IV PUSH ; Start 06/13/16 at 12:00; Stop at 10:19; Status DC Lactated Ringer's (Lr 1000 ml Inj) 1,000 ml @ As Directed STK-MED ONCE IV ; Start 06/13/16 at 12:00; Stop 06/14/16 at 10:19; Status DC Ephedrine Sulfate (ePHEDrine/NS 50 MG/5 ML SYR) 50 mg STK-MED ONCE IV ; Start at 12:00; Stop 06/14/16 at 10:19; Status DC Phenylephrine HCl (Neosynephrine/ NS 1000 Mcg/10ml Syr) 1,000 mcg STK-MED ONCE IV ; Start 06/13/16 at 12:00; Stop 06/14/16 at 10:19; Status DC Miscellaneous Information SPECIFIC LAB TO BE DRAWN:VANCOMYCIN TROUGH DATE TO... ONCE ONCE XX Last administered on 06/17/16 05:55; Start 06/17/16 at 05:45; Stop 06/17/16 at 05:46; Status DC Acetaminophen (Ofirmev Inj) 650 mg ONCE ONCE IV Last administered on 06/15/16 01:23; Start 06/15/16 at 01:15; Stop 06/15/16 at 01:16; Status DC Warfarin Sodium 2 mg 2 mg ONCE PO Last administered on 06/15/16 18:10; Start at 16:00; Stop 06/15/16 at 21:00; Status DC Sodium Chloride (NS 1000 ml Inj) 1,000 ml @ 70 mls/hr [id number] IV Last administered on 06/16/16 02:40; Start 06/15/16 at 11:38; Stop 06/16/16 at 09:35; Status DC Aspirin (Aspirin Chew) 162 mg NOW STAT PO Last administered on 06/15/16 12:27 ; Start 06/15/16 at 12:16; Stop 06/15/16 at 12:21; Status DC Atorvastatin Calcium 20 mg 20 mg HS PO Last administered on 06/20/16 21:10; Start 06/15/16 at 21:00 Sodium Chloride 1,000 ml @ 999 mls/hr BOLUS ONCE IV Last administered on 15:14; Start 06/15/16 at 12:30; Stop 06/15/16 at 13:30; Status DC Sodium Chloride 250 ml @ 15 mls/hr ONCE ONCE IV Last administered on 12:33; Start 06/16/16 at 09:30; Stop 06/17/16 at 02:09; Status DC Ceftriaxone Sodium 1000 mg/ Sodium Chloride 100 ml @ 200 mls/hr Q24H IV Last administered on 06/16/16 12:33; Start 06/16/16 at 10:00; Stop 06/16/16 at 17:43; Status DC Piperacillin Sod/ Tazobactam Sod 50 ml @ 100 mls/hr Q6H IV Last administered on 06/21/16 09:09; Start 06/16/16 at 20:00 Sodium Chloride (NS 500 ml Inj) 500 ml @ 50 mls/hr Q10H ONCE IV Last administered on 06/18/16 13:34; Start 06/18/16 at 13:15; Stop 06/18/16 at 23:14; Status DC Furosemide (Lasix Inj) 20 mg ONCE ONCE IV PUSH Last administered on 06/20/16 12:54; Start 06/20/16 at 10:45; Stop 06/20/16 at 10:46; Status DC A/P Assessment and Plan A/P s/p left AKA - Post surgical management post operative pain rehabilitation as per surgical service - Abx discontinued. Appreciate rehabilitation medicine's recommendations concerning long-term recommendations in rehabilitation and improvement of ADL bilateral wheezing- better- continue neb treatment- Acute kidney injury improved on IV hydration- Adjust vancomycin dosing - monitor renal function. Previous Sepsis on admission. Resolved. - Initially thought to be secondary to Natalie UTI, however most likely secondary to osteomyelitis. abdominal distention- check abdominal US Acute Anemia. Currently asymptomatic -Slow decline. Likely anemia of inflammation - - s/p PRBC transfusion with improved H/H. -GI consult appreciated; no plan for colonoscopy at this time. Type 2 diabetes. Overall Control. Continue sliding scale insulin. Atrial fibrillation. Currently heart rate is controlled. Restarted warfarin - PT/INR monitoring. Diabetic neuropathy. Chronic. Continue gabapentin. Tobaccoism. Recommend cessation. Hypertension and now borderline hypotensive due to infection. Hold all antihypertensives . UTI. On admission with Natalie glabrata. Status post diflucan. DVT Prophylaxis. Coumadin restarted . Discharge Planning possible dc to SNF in am if stable - pending abdominal US. Ronn Pugh MD Jun 21, 2016 09:45
--- NOTE | 2016-06-21 11:39 | RADRPT ---
EXAM DATE/TIME: 06/21/2016 10:33 [facility] COMPARISON: No previous studies available for comparison. INDICATIONS : Abdominal distention. MEDICAL HISTORY : Congestive heart failure. Dizziness. Syncope. A-Fib. COPD. Diabetes. 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 SURGICAL HISTORY : Tonsillectomy. Cholecystectomy. Left toe amputation. ENCOUNTER: Initial ACUITY: 1 week PAIN SCORE: 0/10 LOCATION: Bilateral abdomen. AREA EVALUATED: Abdomen quadrants. FINDINGS: Imaging of the abdomen and pelvis was performed to evaluate for ascites for possible paracentesis. CONCLUSION: There is no significant ascites. Nahid Cazares MD FACR on June 21, 2016 at 11:37 Board Certified Radiologist. This report was verified electronically.
[2016-06-21] MEDS: MORPHINE SULFATE 4 MG/ML INJ IV PUSH PRN (14:10)
[2016-06-21] MEDS: WARFARIN SOD 3 MG TAB PO SCH (16:53)
[2016-06-21] MEDS ORDERED: PHARMACY ORDERED LAB XX ONE (17:45)
[2016-06-21] MEDS: ATORVASTATIN 20 MG TAB PO SCH (22:18)
[2016-06-22] VITALS (7 sets, daily range): BP systolic 96–134; BP diastolic 46–67; PULSE 81–97; RESP 18–20; TEMP 97.4–98.4; O2SAT 96–99
[2016-06-22] MEDS: PIPERACIL-TAZO 3.375 GM PREMIX 50 ML IV SCH ×3 (00:26→09:16)
[2016-06-22] MEDS: ACETAMINOPHEN/HYDROcodone 325 MG/10 MG TAB PO PRN ×2 (00:39→21:01)
[2016-06-22] MEDS: INSULIN ASPART SUPPLEMENTAL SCALE SQ SCH ×5 (00:39→23:50)
[2016-06-22 06:07] LABS: INTERNATIONAL NORMALIZED RATIO 2.6 RATIO; PROTHROMBIN TIME - PATIENT 30.2 SEC (9.8-11.6)
[2016-06-22] MEDS: TAMSULOSIN HCL 0.4 MG CAP PO SCH (09:14)
[2016-06-22] MEDS: GABAPENTIN 300 MG CAP PO SCH ×3 (09:14→17:11)
[2016-06-22] MEDS: PANTOPRAZOLE SOD 40 MG DELAYED RELEASE TAB PO SCH (09:14)
[2016-06-22] MEDS: SODIUM CHLORIDE 0.9% FLUSH 5 ML FLUSH IVF SCH ×2 (09:15→21:03)
[2016-06-22] MEDS: COLLAGENASE OINT 30 GM TUBE TOP SCH (09:18)
--- NOTE | 2016-06-22 10:36 | HHI.PR ---
Subjective Remarks in no distress but with mild wheezing. complaining of persistent generalized abdominal pain but no nausea. no fever. pain is fairly controlled. Objective Vitals Vital Signs Date Time Temp Pulse Resp B/P Pulse Ox O2 Delivery O2 Flow Rate FiO2 06/22/16 09:19 Room Air 06/22/16 08:00 97.4 85 18 117/57 97 06/22/16 04:00 98.2 91 20 115/57 98 06/22/16 00:00 98.4 90 20 134/67 98 06/21/16 23:00 82 06/21/16 23:00 Nasal Cannula 2.00 06/21/16 21:47 Nasal Cannula 2.00 06/21/16 20:00 97.4 88 20 119/63 91 06/21/16 16:00 2.00 06/21/16 16:00 97.5 88 20 146/79 96 06/21/16 12:00 97.4 83 20 135/77 97 06/21/16 11:05 95 Nasal Cannula 2.00 I/O 06/21/16 06/21/16 06/21/16 06/22/16 06/22/16 06/22/16 07:00 15:00 23:00 07:00 15:00 23:00 Intake Total 412 ml 480 ml 360 ml 360 ml Output Total 50 ml 300 ml 1650 ml Balance 362 ml 180 ml -1290 ml 360 ml Intake Oral 360 ml 480 ml 360 ml 360 ml IV Total 52 ml Output Urine Total 50 ml 300 ml 1650 ml # Bowel Movements 0 1 1 Result Diagram: 06/19/16 0525 06/20/16 0621 Imaging Last Impressions Abdomen Ultrasound 06/21/16 0000 Signed Impressions: Service Date/Time: Tuesday, June 21, 2016 10:33 - CONCLUSION: There is no significant ascites. Nahid Cazares MD FACR Brain MRI 06/15/16 1143 Signed Impressions: Service Date/Time: June 12:49 - CONCLUSION: 1. Cerebral atrophy and extensive chronic ischemic small vessel vasculopathy. 2. No acute infarction. Subhash Arteaga MD Chest X-Ray 06/15/16 0000 Signed Impressions: Service Date/Time: June 12:12 - CONCLUSION: Bilateral mainly basilar infiltrates and bilateral effusions Bret Vidal MD Carotid Artery Ultrasound 06/15/16 0000 Signed Impressions: Service Date/Time: June 18:56 - CONCLUSION: 1. Bilateral carotid bifurcation atherosclerosis, moderate on the right and mild on the left. No hemodynamically significant narrowing on either side. 2. Limited study and the vertebral arteries are not well-visualized today. They had antegrade flow within them on the prior ultrasound. Bret Truong MD Foot MRI 06/07/16 0000 Signed Impressions: Service Date/Time: Tuesday, June 07, 2016 09:34 - CONCLUSION: 1. Deep soft tissue ulcer of the midfoot and with associated osteomyelitis of the plantar/lateral aspect of the fourth metatarsal base and mid to distal cuboid. Please see above. Fifth metatarsal previously resected. 2. Second toe amputation since the prior MRI. Indurated soft tissues and focal cortical destruction seen of the second metatarsal head remnant. No deep osteomyelitis of the second metatarsal. 3. No soft tissue abscesses are demonstrated. 4. Apparent cellulitis of the heel pad. No calcaneal osteomyelitis demonstrated. Bret Truong MD Ankle MRI 06/07/16 0000 Signed Impressions: Service Date/Time: Tuesday, June 07, 2016 09:34 - CONCLUSION: 1. No evidence of osteomyelitis. 2. Old healed fracture of the distal fibula. 3. Subcutaneous nonspecific edema. Juan Bonilla MD Upper Extremity Ultrasound 06/05/16 0000 Signed Impressions: Service Date/Time: Sunday, June 05, 2016 20:02 - CONCLUSION: Normal examination. KNoam Izaguirre MD Aorta w/Runoff CTA 06/01/16 0000 Signed Impressions: Service Date/Time: May 12:13 - CONCLUSION: 1. Heavily diseased but adequate in flow down to the level of the groin bilaterally. 2. 3. Right le. Diffusely diseased superficial femoral artery with multiple areas of moderate and scattered areas of high grade stenosis. The popliteal is diseased but adequate in caliber. Distally, there is single vessel runoff into the foot via the anterior tibial. 5. 6. Left le. Heavily diseased superficial femoral with scattered areas of moderate and high grade stenosis. The popliteal is heavily diseased as well. Distally, there is occlusion of the origin of all 3 trifurcation vessels. Eventually, there is reconstitution of the anterior tibial and posterior tibial. Aric Cazares MD Head CT 05/24/16 1217 Signed Impressions: Service Date/Time: Tuesday, May 24, 2016 12:55 - CONCLUSION: 1. No acute intracranial abnormality. 2. Atrophy. 3. Chronic small vessel ischemic change. Juvenal Jarquin Jr., MD Objective Remarks GENERAL: This is a well-nourished, well-developed patient, in no apparent distress. CARDIOVASCULAR: Regular rate and regular rhythm without murmurs, gallops, or rubs. RESPIRATORY: Clear to auscultation. Breath sounds equal bilaterally. No wheezes , rales, or rhonchi. GASTROINTESTINAL: Abdomen soft, non-tender, distended. Normal, active bowel sounds MUSCULOSKELETAL: s/p left AKA NEURO: Alert & Oriented x4 to person, place, time, situation. Moves all ext x4 Procedures left AKA Medications and IVs Current Medications IV Flush 2 ml 2 ml UNSCH PRN IVF FLUSH AFTER USING IV ACCESS; Start 05/24/16 at 12:30; Stop 05/24/16 at 15:31; Status DC Sodium Chloride 1,000 ml @ 1,000 mls/hr Q1H IV Last administered on at 13:23; Start 05/24/16 at 12:17; Stop 05/24/16 at 13:16; Status DC Piperacillin Sod/ Tazobactam Sod 100 ml @ 200 mls/hr ONCE ONCE IV Last administered on 05/24/16at 13:23; Start 05/24/16 at 12:30; Stop 05/24/16 at 12 :59; Status DC Vancomycin HCl/ Sodium Chloride (Vancomycin Inj/ NS 250 ml Inj) 250 ml @ 250 mls/hr ONCE ONCE IV Last administered on 05/24/16at 14:47; Start 05/24/16 at 12:30; Stop 05/24/16 at 13:29; Status DC Calcium Gluconate (Calcium Gluconate Inj) 1 gm ONCE ONCE SLOW IVP Last administered on 05/24/16at 14:40; Start 05/24/16 at 13:45; Stop 05/24/16 at 13 :46; Status DC Insulin Human Regular (NovoLIN R INJ) 10 units ONCE ONCE IV PUSH Last administered on 05/24/16at 14:39; Start 05/24/16 at 14:00; Stop 05/24/16 at 14 :01; Status DC Dextrose (D50w (Vial) Inj) 50 ml ONCE ONCE IV PUSH Last administered on at 14:39; Start 05/24/16 at 13:45; Stop 05/24/16 at 13:46; Status DC Sodium Bicarbonate (Sodium Bicarbonate 8.4% Inj) 50 meq ONCE ONCE SLOW IVP Last administered on 05/24/16at 14:23; Start 05/24/16 at 13:45; Stop 05/24/16 at 13:46; Status DC Albuterol Sulfate (Albuterol Concentrated Neb) 10 mg ONCE ONCE INH Last administered on 05/24/16at 14:58; Start 05/24/16 at 13:45; Stop 05/24/16 at 13 :46; Status DC Sodium Polystyrene Sulfonate 15 gm 15 gm ONCE ONCE PO Last administered on at 14:18; Start 05/24/16 at 13:45; Stop 05/24/16 at 13:46; Status DC Sodium Chloride 1,000 ml @ 999 mls/hr BOLUS ONCE IV Last administered on at 14:40; Start 05/24/16 at 14:00; Stop 05/24/16 at 15:00; Status DC Sodium Chloride (NS 1000 ml Inj) 1,000 ml @ 150 mls/hr Q6H40M IV Last administered on 05/29/16at 02:20; Start 05/24/16 at 14:33; Stop 05/29/16 at 14 :38; Status DC IV Flush (NS Flush) 2 ml UNSCH PRN IV FLUSH FLUSH AFTER USING IV ACCESS; Start 05/24/16 at 14:45; Stop 06/13/16 at 09:19; Status DC IV Flush (NS Flush) 2 ml BID IV FLUSH Last administered on 06/12/16t 23:09; Start 05/24/16 at 21:00; Stop 06/13/16 at 09:19; Status DC Pantoprazole Sodium (Protonix Inj) 40 mg DAILY IV Last administered on at 08:47; Start 05/24/16 at 15:30; Stop 05/29/16 at 14:39; Status DC Albuterol/ Ipratropium (Duoneb Neb) 1 ampule Q2HR NEB PRN INH WHEEZING; Start 05/24/16 at 14:45 Miscellaneous Information 1 Q361D XX Last administered on 05/24/16at 17:09; Start 05/24/16 at 14:45 Chlorhexidine Gluconate (Chlorhexidine 2% Cloth) 3 pack Taper DAILY@04 TOP Last administered on 05/25/16at 04:00; Start 05/25/16 at 04:00; Stop 05/29/16 at 14:38; Status DC Chlorhexidine Gluconate 3 pack 3 pack UNSCH PRN TOP HYGIENIC CARE; Start 05/24 at 14:45; Stop 05/29/16 at 14:38; Status DC Cefepime HCl 500 mg/Sodium Chloride 100 ml @ 200 mls/hr Q24H IV Last administered on 05/25/16at 16:29; Start 05/24/16 at 16:00; Stop 05/26/16 at 12 :54; Status DC Pharmacy Profile Note (Coumadin Consult Pharmacy) 0 ml @ 0 mls/hr UNSCH OTHER ; Start 05/24/16 at 14:45 Insulin Aspart 1 1 Q6HR SQ Last administered on 06/22/16 00:39; Start at 15:30 Piperacillin Sod/ Tazobactam Sod 50 ml @ 100 mls/hr Q8H IV Last administered on 05/25/16at 05:24; Start 05/24/16 at 21:00; Stop 05/25/16 at 10:27; Status DC Pharmacy Profile Note (Vancomycin Consult Pharmacy) 0 ml @ 0 mls/hr UNSCH OTHER ; Start 05/24/16 at 16:15; Status Cancel Collagenase (Santyl Oint) 1 applic DAILY TOP Last administered on 06/22/16 09: 18; Start 05/25/16 at 09:00 Miscellaneous Information SPECIFIC LAB TO BE DRAWN:VANCOMYCIN RANDOM DATE TO... ONCE ONCE XX ; Start 05/25/16 at 14:00; Stop 05/25/16 at 14:00; Status DC Acetaminophen/ Hydrocodone Bitart 1 tab 1 tab Q6H PRN PO PAIN Last administered on 06/12/16 23:34; Start 05/24/16 at 23:45; Stop 06/13/16 at 09:21 ; Status DC Norepinephrine Bitartrate 250 ml @ 0 mls/hr TITRATE IV Last administered on at 01:07; Start 05/25/16 at 00:30; Stop 05/25/16 at 07:07; Status DC Piperacillin Sod/ Tazobactam Sod 50 ml @ 100 mls/hr Q8H IV Last administered on 05/29/16at 20:39; Start 05/25/16 at 13:00; Stop 05/29/16 at 23:06; Status DC Vancomycin HCl/ Sodium Chloride (Vancomycin Inj/ NS 250 ml Inj) 250 ml @ 250 mls/hr ONCE ONCE IV Last administered on 05/25/16at 11:49; Start 05/25/16 at 12:00; Stop 05/25/16 at 12:59; Status DC Miscellaneous Information SPECIFIC LAB TO BE DRAWN:RANDOM LEVEL DATE TO BE DRNoam.. ONCE ONCE XX Last administered on 05/26/16at 05:19; Start 05/26/16 at 06:00; Stop 05/26/16 at 06:01; Status DC Sodium Chloride (NS 250 ml Inj) 250 ml @ 15 mls/hr ONCE ONCE IV Last administered on 05/26/16at 09:40; Start 05/26/16 at 06:00; Stop 05/26/16 at 22 :39; Status DC Furosemide 20 mg 20 mg ONCE ONCE IV Last administered on 05/26/16at 12:37; Start 05/26/16 at 06:00; Stop 05/26/16 at 06:01; Status DC Vancomycin HCl/ Sodium Chloride (Vancomycin Inj/ NS 250 ml Inj) 262.5 ml @ 250 mls/hr Q24H IV Last administered on 05/29/16at 12:21; Start 05/26/16 at 12:00 ; Stop 05/29/16 at 15:10; Status DC Miscellaneous Information SPECIFIC LAB TO BE DAVID... ONCE ONCE XX ; Start 05/29 at 11:45; Stop 05/29/16 at 11:46; Status DC Cefepime HCl/ Sodium Chloride (Maxipime Inj/NS Inj) 100 ml @ 200 mls/hr Q24H IV Last administered on 05/27/16at 17:36; Start 05/26/16 at 16:00; Stop 05/28 at 09:04; Status DC Fluconazole (Diflucan) 200 mg DAILY PO Last administered on 06/12/16 08:58; Start 05/27/16 at 09:00; Stop 06/12/16 at 13:42; Status DC Warfarin Sodium (Coumadin) 5 mg DAILY@1600 PO Last administered on 05/29/16at 15:45; Start 05/27/16 at 16:00; Stop 05/31/16 at 11:40; Status DC Warfarin Sodium 0.5 mg 0.5 mg DAILY@16 PO Last administered on 05/29/16at 15:45 ; Start 05/27/16 at 16:00; Stop 05/31/16 at 11:37; Status DC Cefepime HCl/ Sodium Chloride (Maxipime Inj/NS Inj) 100 ml @ 200 mls/hr Q12H IV Last administered on 05/29/16 08:46; Start 05/28/16 at 10:00; Stop 05/29 at 09:20; Status DC Warfarin Sodium (Coumadin) 7.5 mg ONCE ONCE PO Last administered on at 17:02; Start 05/28/16 at 16:00; Stop 05/28/16 at 16:01; Status DC Tamsulosin HCl (Flomax) 0.4 mg DAILY PO Last administered on 06/22/16 09:14; Start 05/28/16 at 15:00 Pantoprazole Sodium (Protonix) 40 mg DAILY PO Last administered on 06/22/16 09 :14; Start 05/30/16 at 09:00 Bumetanide 1 mg 1 mg ONCE ONCE IV PUSH Last administered on 05/29/16at 15:45; Start 05/29/16 at 15:00; Stop 05/29/16 at 15:01; Status DC Vancomycin HCl/ Sodium Chloride (Vancomycin Inj/ NS 250 ml Inj) 262.5 ml @ 262.5 mls/ hr Q18H IV Last administered on 05/30/16at 06:07; Start 05/30/16 at 06:00; Stop 05/30/16 at 11:27; Status DC Miscellaneous Information SPECIFIC LAB TO BE DAVID... ONCE ONCE XX ; Start 05/30 at 23:45; Stop 05/30/16 at 23:46; Status Cancel Vancomycin HCl/ Sodium Chloride (Vancomycin Inj/ NS 500 ml Inj) 515 ml @ 250 mls/hr Q18H IV Last administered on 06/01/16at 13:28; Start 05/31/16 at 00:00 ; Stop 06/01/16 at 14:39; Status DC Miscellaneous Information SPECIFIC LAB TO BE DRAWN:VANCOMYCIN TROUGH DATE TO... ONCE ONCE XX Last administered on 06/01/16at 13:27; Start 06/01/16 at 11:45; Stop 06/01/16 at 11:46; Status DC Warfarin Sodium (Coumadin) 4 mg DAILY@16 PO Last administered on 06/02/16at 16: 19; Start 05/31/16 at 16:00; Stop 06/05/16 at 11:08; Status DC Iohexol 100 ml 100 ml STK-MED ONCE IV Last administered on 06/01/16at 13:18; Start 06/01/16 at 13:18; Stop 06/01/16 at 13:19; Status DC Vancomycin HCl/ Sodium Chloride (Vancomycin Inj/ NS 500 ml Inj) 515 ml @ 250 mls/hr Q24H IV Last administered on 06/06/16at 13:52; Start 06/02/16 at 14:00 ; Stop 06/06/16 at 15:00; Status DC Miscellaneous Information SPECIFIC LAB TO BE DRAWN:VANCOMYCIN TROUGH DATE TO... ONCE ONCE XX Last administered on 06/04/16at 13:55; Start 06/04/16 at 13:45; Stop 06/04/16 at 13:46; Status DC Miscellaneous Information SPECIFIC LAB TO BE DAVID... ONCE ONCE XX Last administered on 06/06/16at 13:45; Start 06/06/16 at 13:45; Stop 06/06/16 at 13 :46; Status DC Warfarin Sodium 3 mg 3 mg DAILY@16 PO Last administered on 06/08/16at 15:40; Start 06/05/16 at 16:00; Stop 06/13/16 at 09:27; Status DC Vancomycin HCl/ Sodium Chloride (Vancomycin Inj/ NS 500 ml Inj) 517.5 ml @ 250 mls/hr Q36H IV Last administered on 06/12/16t 18:18; Start 06/08/16 at 06:00; Stop 06/12/16 at 19:09; Status DC Miscellaneous Information SPECIFIC LAB TO BE DRAWN:VANCOMYCIN TROUGH DATE TO... ONCE ONCE XX Last administered on 06/12/16 17:45; Start 06/12/16 at 17:45; Stop 06/12/16 at 17:46; Status DC Gadodiamide (Omniscan Pf Inj) 22 ml STK-MED ONCE IV Last administered on at 10:21; Start 06/07/16 at 10:21; Stop 06/07/16 at 10:22; Status DC Phytonadione 5 mg 5 mg ONCE ONCE SQ Last administered on 06/11/16 06:30; Start 06/11/16 at 06:30; Stop 06/11/16 at 06:31; Status DC Sodium Chloride (NS 250 ml Inj) 250 ml @ 15 mls/hr ONCE ONCE IV Last administered on 06/11/16 00:00; Start 06/11/16 at 15:00; Stop 06/12/16 at 07:39; Status DC Acetaminophen (Tylenol) 650 mg Q4H PRN PO SEE LABEL COMMENTS; Start 06/11/16 at 15:00; Stop 06/11/16 at 19:01; Status DC Diphenhydramine HCl (Benadryl) 25 mg Q4H PRN PO SEE LABEL COMMENTS; Start at 15:00; Stop 06/11/16 at 19:01; Status DC Furosemide (Lasix Inj) 20 mg ONCE ONCE IV Last administered on 06/11/16 04:00 ; Start 06/11/16 at 15:00; Stop 06/11/16 at 15:01; Status DC Phytonadione 5 mg 5 mg ONCE ONCE SQ Last administered on 06/12/16 08:56; Start 06/12/16 at 06:50; Stop 06/12/16 at 06:51; Status DC Vancomycin HCl/ Sodium Chloride (Vancomycin Inj/ NS 500 ml Inj) 515 ml @ 250 mls/hr Q24H IV ; Start 06/13/16 at 18:00; Status Cancel Miscellaneous Information SPECIFIC LAB TO BE DRAWN:VANCO TROUGH DATE TO BE DR... ONCE ONCE XX ; Start 06/14/16 at 17:45; Stop 06/14/16 at 17:46; Status Cancel Vancomycin HCl/ Sodium Chloride (Vancomycin Inj/ NS 500 ml Inj) 517.5 ml @ 250 mls/hr Q36H IV Last administered on 06/20/16 06:30; Start 06/14/16 at 06:00; Stop 06/21/16 at 10:06; Status DC Sugammadex Sodium (Bridion Inj) 200 mg STK-MED ONCE IV PUSH ; Start 06/13/16 at 06:53; Stop 06/13/16 at 07:00; Status DC Acetaminophen (Ofirmev Inj) 1,000 mg STK-MED ONCE IV ; Start 06/13/16 at 06:53; Stop 06/13/16 at 07:00; Status DC Vancomycin HCl 1000 mg 1,000 mg STK-MED ONCE .ROUTE Last administered on 07:52; Start 06/13/16 at 07:04; Stop 06/13/16 at 07:17; Status DC Cefazolin Sodium/ Dextrose (Ancef 2 Gm Premix) 50 ml @ As Directed STK-MED ONCE .ROUTE Last administered on 06/13/16 07:53; Start 06/13/16 at 07:04; Stop at 07:17; Status DC Bupivacaine HCl/ Epinephrine Bitart (Marcaine-Epi Pf 0.25% Inj) 30 ml STK-MED ONCE .ROUTE Last administered on 06/13/16 07:51; Start 06/13/16 at 07:04; Stop 06/13/16 at 07:17; Status DC Cefazolin Sodium (Ancef Inj) 1,000 mg STK-MED ONCE .ROUTE Last administered on 06/13/16 07:52; Start 06/13/16 at 07:04; Stop 06/13/16 at 07:17; Status DC Gentamicin Sulfate 240 mg 240 mg STK-MED ONCE .ROUTE ; Start 06/13/16 at 07:05; Stop 06/13/16 at 07:17; Status DC Sodium Chloride (NS 250 ml Inj) 250 ml @ As Directed STK-MED ONCE .ROUTE ; Start 06/13/16 at 07:05; Stop 06/13/16 at 07:17; Status DC Ketamine HCl (Ketalar Inj) 500 mg STK-MED ONCE .ROUTE ; Start 06/13/16 at 07:24; Stop 06/13/16 at 07:35; Status DC IV Flush (NS Flush) 2 ml UNSCH PRN IVF FLUSH AFTER USING IV ACCESS; Start at 09:15 IV Flush (NS Flush) 2 ml BID IVF Last administered on 06/22/16 09:15; Start at 21:00 Acetaminophen/ Hydrocodone Bitart (Pine Level 10-325 Mg) 1 tab Q3H PRN PO PAIN LESS THAN 5 ON SCALE Last administered on 06/19/16 15:12; Start 06/13/16 at 09:15 Acetaminophen/ Hydrocodone Bitart (Pine Level 10-325 Mg) 2 tab Q6H PRN PO PAIN GREATER THAN/EQUAL TO 5 Last administered on 06/22/16 00:39; Start 06/13/16 at 09:15 Gabapentin (Neurontin) 300 mg TID PO Last administered on 06/22/16 09:14; Start 06/13/16 at 13:00 Morphine Sulfate (Morphine Inj) 4 mg Q3H PRN IV PUSH break thru pain Last administered on 06/21/16 14:10; Start 06/13/16 at 09:15 Warfarin Sodium (Coumadin) 3 mg DAILY@16 PO Last administered on 06/21/16 16: 53; Start 06/14/16 at 16:00; Status Hold Albuterol Sulfate (*ALBUTEROL NEB PERIprocedure ONLY) 2.5 mg STK-MED ONCE NEB ; Start 06/13/16 at 09:29; Stop 06/13/16 at 09:30; Status DC Midazolam HCl (Versed Inj) 2 mg STK-MED ONCE .ROUTE ; Start 06/13/16 at 09:30; Stop 06/13/16 at 09:31; Status DC Miscellaneous Information ALL NURSING DEPARTME... UNSCH PRN XX SEE LABEL COMMENTS; Start 06/13/16 at 09:20; Stop 06/14/16 at 09:19; Status DC Miscellaneous Information SPECIFIC LAB TO BE DRAWN:REJI HADDAD DATE TO BE DRSlim. ONCE ONCE XX Last administered on 06/14/16 05:54; Start 06/14/16 at 05:45 ; Stop 06/14/16 at 05:46; Status DC Propofol (Diprivan 200 Mg/20 ml Inj) 200 mg STK-MED ONCE IV ; Start 06/13/16 at 12:00; Stop 06/14/16 at 10:19; Status DC Ondansetron HCl 4 mg 4 mg STK-MED ONCE IV PUSH ; Start 06/13/16 at 12:00; Stop at 10:19; Status DC Lactated Ringer's (Lr 1000 ml Inj) 1,000 ml @ As Directed STK-MED ONCE IV ; Start 06/13/16 at 12:00; Stop 06/14/16 at 10:19; Status DC Ephedrine Sulfate (ePHEDrine/NS 50 MG/5 ML SYR) 50 mg STK-MED ONCE IV ; Start at 12:00; Stop 06/14/16 at 10:19; Status DC Phenylephrine HCl (Neosynephrine/ NS 1000 Mcg/10ml Syr) 1,000 mcg STK-MED ONCE IV ; Start 06/13/16 at 12:00; Stop 06/14/16 at 10:19; Status DC Miscellaneous Information SPECIFIC LAB TO BE DRAWN:VANCOMYCIN TROUGH DATE TO... ONCE ONCE XX Last administered on 06/17/16 05:55; Start 06/17/16 at 05:45; Stop 06/17/16 at 05:46; Status DC Acetaminophen (Ofirmev Inj) 650 mg ONCE ONCE IV Last administered on 06/15/16 01:23; Start 06/15/16 at 01:15; Stop 06/15/16 at 01:16; Status DC Warfarin Sodium 2 mg 2 mg ONCE PO Last administered on 06/15/16 18:10; Start at 16:00; Stop 06/15/16 at 21:00; Status DC Sodium Chloride (NS 1000 ml Inj) 1,000 ml @ 70 mls/hr [id number] IV Last administered on 06/16/16 02:40; Start 06/15/16 at 11:38; Stop 06/16/16 at 09:35; Status DC Aspirin (Aspirin Chew) 162 mg NOW STAT PO Last administered on 06/15/16 12:27 ; Start 06/15/16 at 12:16; Stop 06/15/16 at 12:21; Status DC Atorvastatin Calcium 20 mg 20 mg HS PO Last administered on 06/21/16 22:18; Start 06/15/16 at 21:00 Sodium Chloride 1,000 ml @ 999 mls/hr BOLUS ONCE IV Last administered on 15:14; Start 06/15/16 at 12:30; Stop 06/15/16 at 13:30; Status DC Sodium Chloride 250 ml @ 15 mls/hr ONCE ONCE IV Last administered on 12:33; Start 06/16/16 at 09:30; Stop 06/17/16 at 02:09; Status DC Ceftriaxone Sodium 1000 mg/ Sodium Chloride 100 ml @ 200 mls/hr Q24H IV Last administered on 06/16/16 12:33; Start 06/16/16 at 10:00; Stop 06/16/16 at 17:43; Status DC Piperacillin Sod/ Tazobactam Sod 50 ml @ 100 mls/hr Q6H IV Last administered on 06/22/16 09:16; Start 06/16/16 at 20:00 Sodium Chloride (NS 500 ml Inj) 500 ml @ 50 mls/hr Q10H ONCE IV Last administered on 06/18/16 13:34; Start 06/18/16 at 13:15; Stop 06/18/16 at 23:14; Status DC Furosemide (Lasix Inj) 20 mg ONCE ONCE IV PUSH Last administered on 06/20/16 12:54; Start 06/20/16 at 10:45; Stop 06/20/16 at 10:46; Status DC Miscellaneous Information SPECIFIC LAB TO BE DRAWN:VANCOMYCIN TROUGH DATE TO... ONCE ONCE XX ; Start 06/21/16 at 17:45; Stop 06/21/16 at 17:46; Status Cancel A/P Assessment and Plan A/P s/p left AKA - Post surgical management post operative pain rehabilitation as per surgical service - Abx discontinued. Appreciate rehabilitation medicine's recommendations concerning long-term recommendations in rehabilitation and improvement of ADL bilateral wheezing- one dose of lasix today- continue neb treatment- CXR today. generalized abdominal pain; will check CT of the abdomen- abdominal US with no ascites. Acute kidney injury improved on IV hydration- Previous Sepsis on admission. Resolved. - Initially thought to be secondary to Natalie UTI, however most likely secondary to osteomyelitis. -urinary retention; cabello in place- Acute Anemia. Currently asymptomatic -Slow decline. Likely anemia of inflammation - - s/p PRBC transfusion with improved H/H. -GI consult appreciated; no plan for colonoscopy at this time. Type 2 diabetes. Overall Control. Continue sliding scale insulin. Atrial fibrillation. Currently heart rate is controlled. Restarted warfarin - PT/INR monitoring. Diabetic neuropathy. Chronic. Continue gabapentin. Tobaccoism. Recommend cessation. Hypertension and now borderline hypotensive due to infection. Hold all antihypertensives . UTI. On admission with Natalie glabrata. Status post diflucan. DVT Prophylaxis. Coumadin restarted . Discharge Planning dc to SNF within the next one- two days pending the work-up and clinical course. Ronn Pugh MD Jun 22, 2016 10:36
[2016-06-22] MEDS ORDERED: DIATRIZOATE MEGLUM/DIATRIZOATE SOD 9 ML CUP PO ONE (10:51)
--- NOTE | 2016-06-22 11:45 | RADRPT ---
EXAM DATE/TIME: 06/22/2016 10:54 [facility] COMPARISON: CHEST SINGLE AP, June 15, 2016, 12:12. US ABDOMEN - LOWER LIMITED, Elizabethr y 2016, 10:33. INDICATIONS : Short of breath MEDICAL HISTORY : Chronic obstructive pulmonary disease. Congestive heart failure. Renal failur e, acute. hypertension, ams, diabetes SURGICAL HISTORY : None. ENCOUNTER: Subsequent ACUITY: 1 month PAIN SCORE: Non-responsive. LOCATION: Bilateral chest FINDINGS: The lungs are hypoinflated and there is increased by basilar airspace opacities present. Heart size a ppears mildly enlarged and diffuse cephalization of pulmonary vasculature. CONCLUSION: Exam consistent with worsening congestive heart failure and by basilar airspace conso lidation. Sonja Bolton MD on June 22, 2016 at 11:43 Board Certified Radiologist. This report was verified electronically.
[2016-06-22] MEDS ORDERED: IOHEXOL 350 MG/ML 10 ML VIAL (for RAD DIAG) IV ONE (17:46)
--- NOTE | 2016-06-22 17:58 | RADRPT ---
EXAM DATE/TIME: 06/22/2016 17:23 [place] COMPARISON: No previous studies available for comparison. INDICATIONS : Abdominal pain. IV CONTRAST: 95 cc Omnipaque 350 (iohexol) IV ORAL CONTRAST: Prescribed oral contrast ingested. RADIATION DOSE: 15.39 CTDIvol (mGy) MEDICAL HISTORY : Diabetes mellitus type 2. Cardiovascular disease Chronic obstructive pulmonary disease.Diabetes. SURGICAL HISTORY : Cholecystectomy. ENCOUNTER: Initial ACUITY: 1 day PAIN SCALE: 4/10 LOCATION: Bilateral lower quadrant TECHNIQUE: Volumetric scanning of the abdomen and pelvis was performed. Using automated exposure control and ad justment of the mA and/or kV according to patient size, radiation dose was kept as low as reasonably achievable to obtain optimal diagnostic quality images. FINDINGS: LOWER LUNGS: Small bilateral pleural effusions with adjacent compressive atelectasis are noted. LIVER: Homogeneous density without lesion. There is no dilation of the biliary tree. No calcified gallston es. Status post cholecystectomy. SPLEEN: Normal size without lesion. PANCREAS: Within normal limits. KIDNEYS: Normal in size and shape. There is no mass or hydronephrosis. Tiny calcified nonobstructing bilatera l renal calculi are noted. The largest calculus is noted on the right it measures 6 mm. ADRENAL GLANDS: Within normal limits. VASCULAR: There is no aortic aneurysm. BOWEL/MESENTERY: Uncomplicated colonic diverticulosis is noted. No acute diverticulitis is noted. ABDOMINAL WALL: Within normal limits. RETROPERITONEUM: There is no lymphadenopathy. BLADDER: The urinary bladder is nondistended and contains a Chase catheter. REPRODUCTIVE: Within normal limits. INGUINAL: There is no lymphadenopathy or hernia. MUSCULOSKELETAL: Degenerative changes and scoliosis of the lumbar spine are noted. CONCLUSION: 1. Uncomplicated colonic diverticulosis. 2. Small bilateral pleural effusions with adjacent compressive atelectasis. 3. Scattered tiny calcified nonobstructing bilateral renal calculi. 4. Degenerative changes and scoliosis of the lumbar spine. Raúl Fregoso MD on June 22, 2016 at 17:51 Board Certified Radiologist. This report was verified electronically.
[2016-06-22] MEDS: ATORVASTATIN 20 MG TAB PO SCH (21:01)
[2016-06-23] VITALS (10 sets, daily range): BP systolic 107–127; BP diastolic 53–66; PULSE 71–95; RESP 20; TEMP 97.1–98.3; O2SAT 96–98
[2016-06-23] MEDS: INSULIN ASPART SUPPLEMENTAL SCALE SQ SCH ×3 (05:07→18:00)
[2016-06-23 07:14] LABS: INTERNATIONAL NORMALIZED RATIO 2.4 RATIO
[2016-06-23 07:31] LABS: BICARBONATE 29.6 MEQ/L (21.0-32.0); POTASSIUM 3.4 MEQ/L (3.5-5.1)
--- NOTE | 2016-06-23 08:00 | HHI.PR ---
Subjective Remarks in no acute distress. afebrile. abdominal pain is better. d/w the RN. Objective Vitals Vital Signs Date Time Temp Pulse Resp B/P Pulse Ox O2 Delivery O2 Flow Rate FiO2 06/23/16 04:09 95 06/23/16 04:00 97.1 71 20 119/58 98 06/23/16 00:16 98.2 83 20 108/55 98 06/22/16 21:30 Nasal Cannula 2.00 06/22/16 20:00 98.4 95 20 105/53 99 06/22/16 16:00 97.9 86 20 96/46 96 06/22/16 12:00 97.9 97 20 110/61 98 06/22/16 09:19 Room Air 06/22/16 08:00 97.4 85 18 117/57 97 I/O 06/22/16 06/22/16 06/22/16 06/23/16 06/23/16 06/23/16 07:00 15:00 23:00 07:00 15:00 23:00 Intake Total 360 ml 1266 ml 4416 ml 720 ml Output Total 725 ml 675 ml 900 ml Balance 360 ml 541 ml 3741 ml -180 ml Intake Oral 360 ml 1266 ml 360 ml 720 ml IV Total 4056 ml Output Urine Total 725 ml 675 ml 900 ml # Bowel Movements 1 1 1 1 Result Diagram: 06/19/16 0525 06/23/16 0649 Imaging Last Impressions Chest X-Ray 06/22/16 0000 Signed Impressions: Service Date/Time: June 10:54 - CONCLUSION: Exam consistent with worsening congestive heart failure and by basilar airspace consolidation. Sonja Bolton MD Abdomen/Pelvis CT 06/22/16 0000 Signed Impressions: Service Date/Time: June 17:23 - CONCLUSION: 1. Uncomplicated colonic diverticulosis. 2. Small bilateral pleural effusions with adjacent compressive atelectasis. 3. Scattered tiny calcified nonobstructing bilateral renal calculi. 4. Degenerative changes and scoliosis of the lumbar spine. Raúl Fregoso MD Abdomen Ultrasound 06/21/16 0000 Signed Impressions: Service Date/Time: Tuesday, June 21, 2016 10:33 - CONCLUSION: There is no significant ascites. Nahid Cazares MD FACR Brain MRI 06/15/16 1143 Signed Impressions: Service Date/Time: June 12:49 - CONCLUSION: 1. Cerebral atrophy and extensive chronic ischemic small vessel vasculopathy. 2. No acute infarction. Subhash Arteaga MD Carotid Artery Ultrasound 06/15/16 0000 Signed Impressions: Service Date/Time: June 18:56 - CONCLUSION: 1. Bilateral carotid bifurcation atherosclerosis, moderate on the right and mild on the left. No hemodynamically significant narrowing on either side. 2. Limited study and the vertebral arteries are not well-visualized today. They had antegrade flow within them on the prior ultrasound. Bret Truong MD Foot MRI 06/07/16 0000 Signed Impressions: Service Date/Time: Tuesday, June 07, 2016 09:34 - CONCLUSION: 1. Deep soft tissue ulcer of the midfoot and with associated osteomyelitis of the plantar/lateral aspect of the fourth metatarsal base and mid to distal cuboid. Please see above. Fifth metatarsal previously resected. 2. Second toe amputation since the prior MRI. Indurated soft tissues and focal cortical destruction seen of the second metatarsal head remnant. No deep osteomyelitis of the second metatarsal. 3. No soft tissue abscesses are demonstrated. 4. Apparent cellulitis of the heel pad. No calcaneal osteomyelitis demonstrated. Bret Truong MD Ankle MRI 06/07/16 0000 Signed Impressions: Service Date/Time: Tuesday, June 07, 2016 09:34 - CONCLUSION: 1. No evidence of osteomyelitis. 2. Old healed fracture of the distal fibula. 3. Subcutaneous nonspecific edema. Juan Bonilla MD Upper Extremity Ultrasound 06/05/16 0000 Signed Impressions: Service Date/Time: Sunday, June 05, 2016 20:02 - CONCLUSION: Normal examination. Don Izaguirre MD Aorta w/Runoff CTA 06/01/16 0000 Signed Impressions: Service Date/Time: May 12:13 - CONCLUSION: 1. Heavily diseased but adequate in flow down to the level of the groin bilaterally. 2. 3. Right le. Diffusely diseased superficial femoral artery with multiple areas of moderate and scattered areas of high grade stenosis. The popliteal is diseased but adequate in caliber. Distally, there is single vessel runoff into the foot via the anterior tibial. 5. 6. Left le. Heavily diseased superficial femoral with scattered areas of moderate and high grade stenosis. The popliteal is heavily diseased as well. Distally, there is occlusion of the origin of all 3 trifurcation vessels. Eventually, there is reconstitution of the anterior tibial and posterior tibial. Aric Cazares MD Head CT 05/24/16 1217 Signed Impressions: Service Date/Time: Tuesday, May 24, 2016 12:55 - CONCLUSION: 1. No acute intracranial abnormality. 2. Atrophy. 3. Chronic small vessel ischemic change. Juvenal Jarquin Jr., MD Objective Remarks GENERAL: This is a well-nourished, well-developed patient, in no apparent distress. CARDIOVASCULAR: Regular rate and regular rhythm without murmurs, gallops, or rubs. RESPIRATORY: Clear to auscultation. Breath sounds equal bilaterally. No wheezes , rales, or rhonchi. GASTROINTESTINAL: Abdomen soft, non-tender, distended. Normal, active bowel sounds MUSCULOSKELETAL: s/p left AKA NEURO: Alert & Oriented x4 to person, place, time, situation. Moves all ext x4 Procedures left AKA Medications and IVs Current Medications IV Flush 2 ml 2 ml UNSCH PRN IVF FLUSH AFTER USING IV ACCESS; Start 05/24/16 at 12:30; Stop 05/24/16 at 15:31; Status DC Sodium Chloride 1,000 ml @ 1,000 mls/hr Q1H IV Last administered on at 13:23; Start 05/24/16 at 12:17; Stop 05/24/16 at 13:16; Status DC Piperacillin Sod/ Tazobactam Sod 100 ml @ 200 mls/hr ONCE ONCE IV Last administered on 05/24/16at 13:23; Start 05/24/16 at 12:30; Stop 05/24/16 at 12 :59; Status DC Vancomycin HCl/ Sodium Chloride (Vancomycin Inj/ NS 250 ml Inj) 250 ml @ 250 mls/hr ONCE ONCE IV Last administered on 05/24/16at 14:47; Start 05/24/16 at 12:30; Stop 05/24/16 at 13:29; Status DC Calcium Gluconate (Calcium Gluconate Inj) 1 gm ONCE ONCE SLOW IVP Last administered on 05/24/16at 14:40; Start 05/24/16 at 13:45; Stop 05/24/16 at 13 :46; Status DC Insulin Human Regular (NovoLIN R INJ) 10 units ONCE ONCE IV PUSH Last administered on 05/24/16at 14:39; Start 05/24/16 at 14:00; Stop 05/24/16 at 14 :01; Status DC Dextrose (D50w (Vial) Inj) 50 ml ONCE ONCE IV PUSH Last administered on at 14:39; Start 05/24/16 at 13:45; Stop 05/24/16 at 13:46; Status DC Sodium Bicarbonate (Sodium Bicarbonate 8.4% Inj) 50 meq ONCE ONCE SLOW IVP Last administered on 05/24/16at 14:23; Start 05/24/16 at 13:45; Stop 05/24/16 at 13:46; Status DC Albuterol Sulfate (Albuterol Concentrated Neb) 10 mg ONCE ONCE INH Last administered on 05/24/16at 14:58; Start 05/24/16 at 13:45; Stop 05/24/16 at 13 :46; Status DC Sodium Polystyrene Sulfonate 15 gm 15 gm ONCE ONCE PO Last administered on at 14:18; Start 05/24/16 at 13:45; Stop 05/24/16 at 13:46; Status DC Sodium Chloride 1,000 ml @ 999 mls/hr BOLUS ONCE IV Last administered on at 14:40; Start 05/24/16 at 14:00; Stop 05/24/16 at 15:00; Status DC Sodium Chloride (NS 1000 ml Inj) 1,000 ml @ 150 mls/hr Q6H40M IV Last administered on 05/29/16at 02:20; Start 05/24/16 at 14:33; Stop 05/29/16 at 14 :38; Status DC IV Flush (NS Flush) 2 ml UNSCH PRN IV FLUSH FLUSH AFTER USING IV ACCESS; Start 05/24/16 at 14:45; Stop 06/13/16 at 09:19; Status DC IV Flush (NS Flush) 2 ml BID IV FLUSH Last administered on 06/12/16t 23:09; Start 05/24/16 at 21:00; Stop 06/13/16 at 09:19; Status DC Pantoprazole Sodium (Protonix Inj) 40 mg DAILY IV Last administered on at 08:47; Start 05/24/16 at 15:30; Stop 05/29/16 at 14:39; Status DC Albuterol/ Ipratropium (Duoneb Neb) 1 ampule Q2HR NEB PRN INH WHEEZING; Start 05/24/16 at 14:45 Miscellaneous Information 1 [id number] XX Last administered on 05/24/16at 17:09; Start 05/24/16 at 14:45 Chlorhexidine Gluconate (Chlorhexidine 2% Cloth) 3 pack Taper DAILY@04 TOP Last administered on 05/25/16at 04:00; Start 05/25/16 at 04:00; Stop 05/29/16 at 14:38; Status DC Chlorhexidine Gluconate 3 pack 3 pack UNSCH PRN TOP HYGIENIC CARE; Start 05/24 at 14:45; Stop 05/29/16 at 14:38; Status DC Cefepime HCl 500 mg/Sodium Chloride 100 ml @ 200 mls/hr Q24H IV Last administered on 05/25/16at 16:29; Start 05/24/16 at 16:00; Stop 05/26/16 at 12 :54; Status DC Pharmacy Profile Note (Coumadin Consult Pharmacy) 0 ml @ 0 mls/hr UNSCH OTHER ; Start 05/24/16 at 14:45 Insulin Aspart 1 1 Q6HR SQ Last administered on 06/22/16t 00:39; Start at 15:30 Piperacillin Sod/ Tazobactam Sod 50 ml @ 100 mls/hr Q8H IV Last administered on 05/25/16at 05:24; Start 05/24/16 at 21:00; Stop 05/25/16 at 10:27; Status DC Pharmacy Profile Note (Vancomycin Consult Pharmacy) 0 ml @ 0 mls/hr UNSCH OTHER ; Start 05/24/16 at 16:15; Status Cancel Collagenase (Santyl Oint) 1 applic DAILY TOP Last administered on 06/22/16t 09: 18; Start 05/25/16 at 09:00 Miscellaneous Information SPECIFIC LAB TO BE DRAWN:VANCOMYCIN RANDOM DATE TO... ONCE ONCE XX ; Start 05/25/16 at 14:00; Stop 05/25/16 at 14:00; Status DC Acetaminophen/ Hydrocodone Bitart 1 tab 1 tab Q6H PRN PO PAIN Last administered on 06/12/16t 23:34; Start 05/24/16 at 23:45; Stop 06/13/16 at 09:21 ; Status DC Norepinephrine Bitartrate 250 ml @ 0 mls/hr TITRATE IV Last administered on at 01:07; Start 05/25/16 at 00:30; Stop 05/25/16 at 07:07; Status DC Piperacillin Sod/ Tazobactam Sod 50 ml @ 100 mls/hr Q8H IV Last administered on 05/29/16at 20:39; Start 05/25/16 at 13:00; Stop 05/29/16 at 23:06; Status DC Vancomycin HCl/ Sodium Chloride (Vancomycin Inj/ NS 250 ml Inj) 250 ml @ 250 mls/hr ONCE ONCE IV Last administered on 05/25/16at 11:49; Start 05/25/16 at 12:00; Stop 05/25/16 at 12:59; Status DC Miscellaneous Information SPECIFIC LAB TO BE DRAWN:RANDOM LEVEL DATE TO BE DR... ONCE ONCE XX Last administered on 05/26/16at 05:19; Start 05/26/16 at 06:00; Stop 05/26/16 at 06:01; Status DC Sodium Chloride (NS 250 ml Inj) 250 ml @ 15 mls/hr ONCE ONCE IV Last administered on 05/26/16at 09:40; Start 05/26/16 at 06:00; Stop 05/26/16 at 22 :39; Status DC Furosemide 20 mg 20 mg ONCE ONCE IV Last administered on 05/26/16at 12:37; Start 05/26/16 at 06:00; Stop 05/26/16 at 06:01; Status DC Vancomycin HCl/ Sodium Chloride (Vancomycin Inj/ NS 250 ml Inj) 262.5 ml @ 250 mls/hr Q24H IV Last administered on 05/29/16at 12:21; Start 05/26/16 at 12:00 ; Stop 05/29/16 at 15:10; Status DC Miscellaneous Information SPECIFIC LAB TO BE ... ONCE ONCE XX ; Start 05/29 at 11:45; Stop 05/29/16 at 11:46; Status DC Cefepime HCl/ Sodium Chloride (Maxipime Inj/NS Inj) 100 ml @ 200 mls/hr Q24H IV Last administered on 05/27/16at 17:36; Start 05/26/16 at 16:00; Stop 05/28 at 09:04; Status DC Fluconazole (Diflucan) 200 mg DAILY PO Last administered on 06/12/16 08:58; Start 05/27/16 at 09:00; Stop 06/12/16 at 13:42; Status DC Warfarin Sodium (Coumadin) 5 mg DAILY@1600 PO Last administered on 05/29/16at 15:45; Start 05/27/16 at 16:00; Stop 05/31/16 at 11:40; Status DC Warfarin Sodium 0.5 mg 0.5 mg DAILY@16 PO Last administered on 05/29/16at 15:45 ; Start 05/27/16 at 16:00; Stop 05/31/16 at 11:37; Status DC Cefepime HCl/ Sodium Chloride (Maxipime Inj/NS Inj) 100 ml @ 200 mls/hr Q12H IV Last administered on 05/29/16at 08:46; Start 05/28/16 at 10:00; Stop 05/29 at 09:20; Status DC Warfarin Sodium (Coumadin) 7.5 mg ONCE ONCE PO Last administered on at 17:02; Start 05/28/16 at 16:00; Stop 05/28/16 at 16:01; Status DC Tamsulosin HCl (Flomax) 0.4 mg DAILY PO Last administered on 06/22/16 09:14; Start 05/28/16 at 15:00 Pantoprazole Sodium (Protonix) 40 mg DAILY PO Last administered on 06/22/16 09 :14; Start 05/30/16 at 09:00 Bumetanide 1 mg 1 mg ONCE ONCE IV PUSH Last administered on 05/29/16at 15:45; Start 05/29/16 at 15:00; Stop 05/29/16 at 15:01; Status DC Vancomycin HCl/ Sodium Chloride (Vancomycin Inj/ NS 250 ml Inj) 262.5 ml @ 262.5 mls/ hr Q18H IV Last administered on 05/30/16at 06:07; Start 05/30/16 at 06:00; Stop 05/30/16 at 11:27; Status DC Miscellaneous Information SPECIFIC LAB TO BE DAVID... ONCE ONCE XX ; Start 05/30 at 23:45; Stop 05/30/16 at 23:46; Status Cancel Vancomycin HCl/ Sodium Chloride (Vancomycin Inj/ NS 500 ml Inj) 515 ml @ 250 mls/hr Q18H IV Last administered on 06/01/16at 13:28; Start 05/31/16 at 00:00 ; Stop 06/01/16 at 14:39; Status DC Miscellaneous Information SPECIFIC LAB TO BE DRAWN:VANCOMYCIN TROUGH DATE TO... ONCE ONCE XX Last administered on 06/01/16at 13:27; Start 06/01/16 at 11:45; Stop 06/01/16 at 11:46; Status DC Warfarin Sodium (Coumadin) 4 mg DAILY@16 PO Last administered on 06/02/16at 16: 19; Start 05/31/16 at 16:00; Stop 06/05/16 at 11:08; Status DC Iohexol 100 ml 100 ml STK-MED ONCE IV Last administered on 06/01/16at 13:18; Start 06/01/16 at 13:18; Stop 06/01/16 at 13:19; Status DC Vancomycin HCl/ Sodium Chloride (Vancomycin Inj/ NS 500 ml Inj) 515 ml @ 250 mls/hr Q24H IV Last administered on 06/06/16at 13:52; Start 06/02/16 at 14:00 ; Stop 06/06/16 at 15:00; Status DC Miscellaneous Information SPECIFIC LAB TO BE DRAWN:VANCOMYCIN TROUGH DATE TO... ONCE ONCE XX Last administered on 06/04/16at 13:55; Start 06/04/16 at 13:45; Stop 06/04/16 at 13:46; Status DC Miscellaneous Information SPECIFIC LAB TO BE DAVID... ONCE ONCE XX Last administered on 06/06/16at 13:45; Start 06/06/16 at 13:45; Stop 06/06/16 at 13 :46; Status DC Warfarin Sodium 3 mg 3 mg DAILY@16 PO Last administered on 06/08/16at 15:40; Start 06/05/16 at 16:00; Stop 06/13/16 at 09:27; Status DC Vancomycin HCl/ Sodium Chloride (Vancomycin Inj/ NS 500 ml Inj) 517.5 ml @ 250 mls/hr Q36H IV Last administered on 06/12/16 18:18; Start 06/08/16 at 06:00; Stop 06/12/16 at 19:09; Status DC Miscellaneous Information SPECIFIC LAB TO BE DRAWN:VANCOMYCIN TROUGH DATE TO... ONCE ONCE XX Last administered on 06/12/16 17:45; Start 06/12/16 at 17:45; Stop 06/12/16 at 17:46; Status DC Gadodiamide (Omniscan Pf Inj) 22 ml STK-MED ONCE IV Last administered on at 10:21; Start 06/07/16 at 10:21; Stop 06/07/16 at 10:22; Status DC Phytonadione 5 mg 5 mg ONCE ONCE SQ Last administered on 06/11/16 06:30; Start 06/11/16 at 06:30; Stop 06/11/16 at 06:31; Status DC Sodium Chloride (NS 250 ml Inj) 250 ml @ 15 mls/hr ONCE ONCE IV Last administered on 06/11/16 00:00; Start 06/11/16 at 15:00; Stop 06/12/16 at 07:39; Status DC Acetaminophen (Tylenol) 650 mg Q4H PRN PO SEE LABEL COMMENTS; Start 06/11/16 at 15:00; Stop 06/11/16 at 19:01; Status DC Diphenhydramine HCl (Benadryl) 25 mg Q4H PRN PO SEE LABEL COMMENTS; Start at 15:00; Stop 06/11/16 at 19:01; Status DC Furosemide (Lasix Inj) 20 mg ONCE ONCE IV Last administered on 06/11/16 04:00 ; Start 06/11/16 at 15:00; Stop 06/11/16 at 15:01; Status DC Phytonadione 5 mg 5 mg ONCE ONCE SQ Last administered on 06/12/16 08:56; Start 06/12/16 at 06:50; Stop 06/12/16 at 06:51; Status DC Vancomycin HCl/ Sodium Chloride (Vancomycin Inj/ NS 500 ml Inj) 515 ml @ 250 mls/hr Q24H IV ; Start 06/13/16 at 18:00; Status Cancel Miscellaneous Information SPECIFIC LAB TO BE DRAWN:VANCO TROUGH DATE TO BE DR... ONCE ONCE XX ; Start 06/14/16 at 17:45; Stop 06/14/16 at 17:46; Status Cancel Vancomycin HCl/ Sodium Chloride (Vancomycin Inj/ NS 500 ml Inj) 517.5 ml @ 250 mls/hr Q36H IV Last administered on 06/20/16 06:30; Start 06/14/16 at 06:00; Stop 06/21/16 at 10:06; Status DC Sugammadex Sodium (Bridion Inj) 200 mg STK-MED ONCE IV PUSH ; Start 06/13/16 at 06:53; Stop 06/13/16 at 07:00; Status DC Acetaminophen (Ofirmev Inj) 1,000 mg STK-MED ONCE IV ; Start 06/13/16 at 06:53; Stop 06/13/16 at 07:00; Status DC Vancomycin HCl 1000 mg 1,000 mg STK-MED ONCE .ROUTE Last administered on 07:52; Start 06/13/16 at 07:04; Stop 06/13/16 at 07:17; Status DC Cefazolin Sodium/ Dextrose (Ancef 2 Gm Premix) 50 ml @ As Directed STK-MED ONCE .ROUTE Last administered on 06/13/16 07:53; Start 06/13/16 at 07:04; Stop at 07:17; Status DC Bupivacaine HCl/ Epinephrine Bitart (Marcaine-Epi Pf 0.25% Inj) 30 ml STK-MED ONCE .ROUTE Last administered on 06/13/16 07:51; Start 06/13/16 at 07:04; Stop 06/13/16 at 07:17; Status DC Cefazolin Sodium (Ancef Inj) 1,000 mg STK-MED ONCE .ROUTE Last administered on 06/13/16 07:52; Start 06/13/16 at 07:04; Stop 06/13/16 at 07:17; Status DC Gentamicin Sulfate 240 mg 240 mg STK-MED ONCE .ROUTE ; Start 06/13/16 at 07:05; Stop 06/13/16 at 07:17; Status DC Sodium Chloride (NS 250 ml Inj) 250 ml @ As Directed STK-MED ONCE .ROUTE ; Start 06/13/16 at 07:05; Stop 06/13/16 at 07:17; Status DC Ketamine HCl (Ketalar Inj) 500 mg STK-MED ONCE .ROUTE ; Start 06/13/16 at 07:24; Stop 06/13/16 at 07:35; Status DC IV Flush (NS Flush) 2 ml UNSCH PRN IVF FLUSH AFTER USING IV ACCESS; Start at 09:15 IV Flush (NS Flush) 2 ml BID IVF Last administered on 06/22/16 21:03; Start at 21:00 Acetaminophen/ Hydrocodone Bitart (Strunk 10-325 Mg) 1 tab Q3H PRN PO PAIN LESS THAN 5 ON SCALE Last administered on 06/19/16 15:12; Start 06/13/16 at 09:15 Acetaminophen/ Hydrocodone Bitart (Strunk 10-325 Mg) 2 tab Q6H PRN PO PAIN GREATER THAN/EQUAL TO 5 Last administered on 06/22/16 21:01; Start 06/13/16 at 09:15 Gabapentin (Neurontin) 300 mg TID PO Last administered on 06/22/16 17:11; Start 06/13/16 at 13:00 Morphine Sulfate (Morphine Inj) 4 mg Q3H PRN IV PUSH break thru pain Last administered on 06/21/16 14:10; Start 06/13/16 at 09:15 Warfarin Sodium (Coumadin) 3 mg DAILY@16 PO Last administered on 06/21/16 16: 53; Start 06/14/16 at 16:00 Albuterol Sulfate (*ALBUTEROL NEB PERIprocedure ONLY) 2.5 mg STK-MED ONCE NEB ; Start 06/13/16 at 09:29; Stop 06/13/16 at 09:30; Status DC Midazolam HCl (Versed Inj) 2 mg STK-MED ONCE .ROUTE ; Start 06/13/16 at 09:30; Stop 06/13/16 at 09:31; Status DC Miscellaneous Information ALL NURSING DEPARTME... UNSCH PRN XX SEE LABEL COMMENTS; Start 06/13/16 at 09:20; Stop 06/14/16 at 09:19; Status DC Miscellaneous Information SPECIFIC LAB TO BE DRAWN:REJI HADDAD DATE TO BE DR... ONCE ONCE XX Last administered on 06/14/16 05:54; Start 06/14/16 at 05:45 ; Stop 06/14/16 at 05:46; Status DC Propofol (Diprivan 200 Mg/20 ml Inj) 200 mg STK-MED ONCE IV ; Start 06/13/16 at 12:00; Stop 06/14/16 at 10:19; Status DC Ondansetron HCl 4 mg 4 mg STK-MED ONCE IV PUSH ; Start 06/13/16 at 12:00; Stop at 10:19; Status DC Lactated Ringer's (Lr 1000 ml Inj) 1,000 ml @ As Directed STK-MED ONCE IV ; Start 06/13/16 at 12:00; Stop 06/14/16 at 10:19; Status DC Ephedrine Sulfate (ePHEDrine/NS 50 MG/5 ML SYR) 50 mg STK-MED ONCE IV ; Start at 12:00; Stop 06/14/16 at 10:19; Status DC Phenylephrine HCl (Neosynephrine/ NS 1000 Mcg/10ml Syr) 1,000 mcg STK-MED ONCE IV ; Start 06/13/16 at 12:00; Stop 06/14/16 at 10:19; Status DC Miscellaneous Information SPECIFIC LAB TO BE DRAWN:VANCOMYCIN TROUGH DATE TO... ONCE ONCE XX Last administered on 06/17/16 05:55; Start 06/17/16 at 05:45; Stop 06/17/16 at 05:46; Status DC Acetaminophen (Ofirmev Inj) 650 mg ONCE ONCE IV Last administered on 06/15/16 01:23; Start 06/15/16 at 01:15; Stop 06/15/16 at 01:16; Status DC Warfarin Sodium 2 mg 2 mg ONCE PO Last administered on 06/15/16 18:10; Start at 16:00; Stop 06/15/16 at 21:00; Status DC Sodium Chloride (NS 1000 ml Inj) 1,000 ml @ 70 mls/hr [id number] IV Last administered on 06/16/16 02:40; Start 06/15/16 at 11:38; Stop 06/16/16 at 09:35; Status DC Aspirin (Aspirin Chew) 162 mg NOW STAT PO Last administered on 06/15/16 12:27 ; Start 06/15/16 at 12:16; Stop 06/15/16 at 12:21; Status DC Atorvastatin Calcium 20 mg 20 mg HS PO Last administered on 06/22/16 21:01; Start 06/15/16 at 21:00 Sodium Chloride 1,000 ml @ 999 mls/hr BOLUS ONCE IV Last administered on 15:14; Start 06/15/16 at 12:30; Stop 06/15/16 at 13:30; Status DC Sodium Chloride 250 ml @ 15 mls/hr ONCE ONCE IV Last administered on 12:33; Start 06/16/16 at 09:30; Stop 06/17/16 at 02:09; Status DC Ceftriaxone Sodium 1000 mg/ Sodium Chloride 100 ml @ 200 mls/hr Q24H IV Last administered on 06/16/16 12:33; Start 06/16/16 at 10:00; Stop 06/16/16 at 17:43; Status DC Piperacillin Sod/ Tazobactam Sod 50 ml @ 100 mls/hr Q6H IV Last administered on 06/22/16 09:16; Start 06/16/16 at 20:00; Stop 06/22/16 at 10:39; Status DC Sodium Chloride (NS 500 ml Inj) 500 ml @ 50 mls/hr Q10H ONCE IV Last administered on 06/18/16 13:34; Start 06/18/16 at 13:15; Stop 06/18/16 at 23:14; Status DC Furosemide (Lasix Inj) 20 mg ONCE ONCE IV PUSH Last administered on 06/20/16 12:54; Start 06/20/16 at 10:45; Stop 06/20/16 at 10:46; Status DC Miscellaneous Information SPECIFIC LAB TO BE DRAWN:VANCOMYCIN TROUGH DATE TO... ONCE ONCE XX ; Start 06/21/16 at 17:45; Stop 06/21/16 at 17:46; Status Cancel Diatrizoate Meglum/ Diatrizoate Sod ( Gastroview Liq) 18 ml ONCE ONCE PO Last administered on 06/22/16 12:15; Start 06/22/16 at 10:51; Stop 06/22/16 at 11:34; Status DC Iohexol (Omnipaque 350 Inj) 95 ml STK-MED ONCE IV Last administered on t 17:46; Start 06/22/16 at 17:46; Stop 06/22/16 at 17:47; Status DC A/P Assessment and Plan A/P s/p left AKA - Post surgical management post operative pain rehabilitation as per surgical service - Abx discontinued. Appreciate rehabilitation medicine's recommendations concerning long-term recommendations in rehabilitation and improvement of ADL fluid overload- start IV lasix- neb treatment as needed. generalized abdominal pain; improved.CT of the abdomen as noted above. Acute kidney injury improved on IV hydration- Previous Sepsis on admission. Resolved. - Initially thought to be secondary to Natalie UTI, however most likely secondary to osteomyelitis. -urinary retention; cabello in place- Acute Anemia. Currently asymptomatic -Slow decline. Likely anemia of inflammation - - s/p PRBC transfusion with improved H/H. -GI consult appreciated; no plan for colonoscopy at this time. Type 2 diabetes. Overall Control. Continue sliding scale insulin. Atrial fibrillation. Currently heart rate is controlled. Restarted warfarin - PT/INR monitoring. Diabetic neuropathy. Chronic. Continue gabapentin. Tobaccoism. Recommend cessation. Hypertension and now borderline hypotensive due to infection. Hold all antihypertensives . UTI. On admission with Natalie glabrata. Status post diflucan. DVT Prophylaxis. Coumadin restarted . Discharge Planning dc to SNF over the weekend pending the clinical course. Ronn Pugh MD Jun 23, 2016 08:00
[2016-06-23] MEDS: SODIUM CHLORIDE 0.9% FLUSH 5 ML FLUSH IVF SCH ×2 (11:15→22:20)
[2016-06-23] MEDS: POTASSIUM CHLORIDE 20 MEQ CONTROLLED RELEASE TAB PO SCH (11:15)
[2016-06-23] MEDS: TAMSULOSIN HCL 0.4 MG CAP PO SCH (11:15)
[2016-06-23] MEDS: FUROSEMIDE 20 MG/2 ML VIAL IV PUSH SCH (11:15)
[2016-06-23] MEDS: COLLAGENASE OINT 30 GM TUBE TOP SCH (11:16)
[2016-06-23] MEDS: GABAPENTIN 300 MG CAP PO SCH ×3 (11:16→18:11)
[2016-06-23] MEDS: PANTOPRAZOLE SOD 40 MG DELAYED RELEASE TAB PO SCH (11:16)
[2016-06-23] MEDS: WARFARIN SOD 3 MG TAB PO SCH (16:00)
[2016-06-23] MEDS: ACETAMINOPHEN/HYDROcodone 325 MG/10 MG TAB PO PRN (16:09)
[2016-06-23] MEDS: ATORVASTATIN 20 MG TAB PO SCH (22:20)
[2016-06-24] VITALS (7 sets, daily range): BP systolic 116–148; BP diastolic 59–76; PULSE 73–84; RESP 16–20; TEMP 97.9–99.2; O2SAT 92–99
[2016-06-24] MEDS: INSULIN ASPART SUPPLEMENTAL SCALE SQ SCH ×4 (05:34→18:00)
[2016-06-24 08:15] LABS: INTERNATIONAL NORMALIZED RATIO 2.2 RATIO; PROTHROMBIN TIME - PATIENT 25.2 SEC (9.8-11.6)
[2016-06-24 08:45] LABS: BICARBONATE 30.3 MEQ/L (21.0-32.0); POTASSIUM 3.8 MEQ/L (3.5-5.1)
[2016-06-24] MEDS: POTASSIUM CHLORIDE 20 MEQ CONTROLLED RELEASE TAB PO SCH (09:00)
[2016-06-24] MEDS: FUROSEMIDE 20 MG/2 ML VIAL IV PUSH SCH (10:23)
[2016-06-24] MEDS: GABAPENTIN 300 MG CAP PO SCH ×3 (10:23→18:02)
[2016-06-24] MEDS: PANTOPRAZOLE SOD 40 MG DELAYED RELEASE TAB PO SCH (10:23)
[2016-06-24] MEDS: TAMSULOSIN HCL 0.4 MG CAP PO SCH (10:45)
[2016-06-24] MEDS: COLLAGENASE OINT 30 GM TUBE TOP SCH (10:45)
[2016-06-24] MEDS: ACETAMINOPHEN/HYDROcodone 325 MG/10 MG TAB PO PRN ×2 (11:07→20:58)
--- NOTE | 2016-06-24 12:50 | HHI.PR ---
Subjective Remarks in no distress. wheezing has improved. no fever. good urine output. Objective Vitals Vital Signs Date Time Temp Pulse Resp B/P Pulse Ox O2 Delivery O2 Flow Rate FiO2 06/24/16 08:00 Nasal Cannula 2.00 06/24/16 08:00 98.3 84 20 127/60 96 06/24/16 07:58 83 06/24/16 04:00 98.0 80 16 116/59 98 06/23/16 22:57 98 Nasal Cannula 2.00 06/23/16 20:00 80 06/23/16 20:00 98.3 80 20 127/53 98 06/23/16 20:00 Nasal Cannula 2.00 06/23/16 17:30 20 06/23/16 16:00 97.9 78 20 107/60 97 06/23/16 15:26 75 I/O 06/23/16 06/23/16 06/23/16 06/24/16 06/24/16 06/24/16 07:00 15:00 23:00 07:00 15:00 23:00 Intake Total 720 ml 600 ml 0 ml 360 ml Output Total 900 ml 1200 ml 400 ml 800 ml Balance -180 ml -600 ml -400 ml -440 ml Intake Oral 720 ml 600 ml 360 ml IV Total 0 ml Output Urine Total 900 ml 1200 ml 400 ml 800 ml # Bowel Movements 1 0 Result Diagram: 06/24/16 0746 Imaging Last Impressions Chest X-Ray 06/22/16 0000 Signed Impressions: Service Date/Time: June 10:54 - CONCLUSION: Exam consistent with worsening congestive heart failure and by basilar airspace consolidation. Sonja Bolton MD Abdomen/Pelvis CT 06/22/16 0000 Signed Impressions: Service Date/Time: June 17:23 - CONCLUSION: 1. Uncomplicated colonic diverticulosis. 2. Small bilateral pleural effusions with adjacent compressive atelectasis. 3. Scattered tiny calcified nonobstructing bilateral renal calculi. 4. Degenerative changes and scoliosis of the lumbar spine. Raúl Fregoso MD Abdomen Ultrasound 06/21/16 0000 Signed Impressions: Service Date/Time: Tuesday, June 21, 2016 10:33 - CONCLUSION: There is no significant ascites. Nahid Cazares MD FACR Brain MRI 06/15/16 1143 Signed Impressions: Service Date/Time: June 12:49 - CONCLUSION: 1. Cerebral atrophy and extensive chronic ischemic small vessel vasculopathy. 2. No acute infarction. Subhash Arteaga MD Carotid Artery Ultrasound 06/15/16 0000 Signed Impressions: Service Date/Time: June 18:56 - CONCLUSION: 1. Bilateral carotid bifurcation atherosclerosis, moderate on the right and mild on the left. No hemodynamically significant narrowing on either side. 2. Limited study and the vertebral arteries are not well-visualized today. They had antegrade flow within them on the prior ultrasound. Bret Truong MD Foot MRI 06/07/16 0000 Signed Impressions: Service Date/Time: Tuesday, June 07, 2016 09:34 - CONCLUSION: 1. Deep soft tissue ulcer of the midfoot and with associated osteomyelitis of the plantar/lateral aspect of the fourth metatarsal base and mid to distal cuboid. Please see above. Fifth metatarsal previously resected. 2. Second toe amputation since the prior MRI. Indurated soft tissues and focal cortical destruction seen of the second metatarsal head remnant. No deep osteomyelitis of the second metatarsal. 3. No soft tissue abscesses are demonstrated. 4. Apparent cellulitis of the heel pad. No calcaneal osteomyelitis demonstrated. Bret Truong MD Ankle MRI 06/07/16 0000 Signed Impressions: Service Date/Time: Tuesday, June 07, 2016 09:34 - CONCLUSION: 1. No evidence of osteomyelitis. 2. Old healed fracture of the distal fibula. 3. Subcutaneous nonspecific edema. Juan Bonilla MD Upper Extremity Ultrasound 06/05/16 0000 Signed Impressions: Service Date/Time: Sunday, June 05, 2016 20:02 - CONCLUSION: Normal examination. Don Izaguirre MD Aorta w/Runoff CTA 06/01/16 0000 Signed Impressions: Service Date/Time: May 12:13 - CONCLUSION: 1. Heavily diseased but adequate in flow down to the level of the groin bilaterally. 2. 3. Right le. Diffusely diseased superficial femoral artery with multiple areas of moderate and scattered areas of high grade stenosis. The popliteal is diseased but adequate in caliber. Distally, there is single vessel runoff into the foot via the anterior tibial. 5. 6. Left le. Heavily diseased superficial femoral with scattered areas of moderate and high grade stenosis. The popliteal is heavily diseased as well. Distally, there is occlusion of the origin of all 3 trifurcation vessels. Eventually, there is reconstitution of the anterior tibial and posterior tibial. Aric Cazares MD Head CT 05/24/16 1217 Signed Impressions: Service Date/Time: Tuesday, May 24, 2016 12:55 - CONCLUSION: 1. No acute intracranial abnormality. 2. Atrophy. 3. Chronic small vessel ischemic change. Juvenal Jarquin Jr., MD Objective Remarks GENERAL: This is a well-nourished, well-developed patient, in no apparent distress. CARDIOVASCULAR: Regular rate and regular rhythm without murmurs, gallops, or rubs. RESPIRATORY: Clear to auscultation. Breath sounds equal bilaterally. No wheezes , rales, or rhonchi. GASTROINTESTINAL: Abdomen soft, non-tender, distended. Normal, active bowel sounds MUSCULOSKELETAL: s/p left AKA NEURO: Alert & Oriented x4 to person, place, time, situation. Moves all ext x4 Procedures left AKA Medications and IVs Current Medications IV Flush 2 ml 2 ml UNSCH PRN IVF FLUSH AFTER USING IV ACCESS; Start 05/24/16 at 12:30; Stop 05/24/16 at 15:31; Status DC Sodium Chloride 1,000 ml @ 1,000 mls/hr Q1H IV Last administered on at 13:23; Start 05/24/16 at 12:17; Stop 05/24/16 at 13:16; Status DC Piperacillin Sod/ Tazobactam Sod 100 ml @ 200 mls/hr ONCE ONCE IV Last administered on 05/24/16at 13:23; Start 05/24/16 at 12:30; Stop 05/24/16 at 12 :59; Status DC Vancomycin HCl/ Sodium Chloride (Vancomycin Inj/ NS 250 ml Inj) 250 ml @ 250 mls/hr ONCE ONCE IV Last administered on 05/24/16at 14:47; Start 05/24/16 at 12:30; Stop 05/24/16 at 13:29; Status DC Calcium Gluconate (Calcium Gluconate Inj) 1 gm ONCE ONCE SLOW IVP Last administered on 05/24/16at 14:40; Start 05/24/16 at 13:45; Stop 05/24/16 at 13 :46; Status DC Insulin Human Regular (NovoLIN R INJ) 10 units ONCE ONCE IV PUSH Last administered on 05/24/16at 14:39; Start 05/24/16 at 14:00; Stop 05/24/16 at 14 :01; Status DC Dextrose (D50w (Vial) Inj) 50 ml ONCE ONCE IV PUSH Last administered on at 14:39; Start 05/24/16 at 13:45; Stop 05/24/16 at 13:46; Status DC Sodium Bicarbonate (Sodium Bicarbonate 8.4% Inj) 50 meq ONCE ONCE SLOW IVP Last administered on 05/24/16at 14:23; Start 05/24/16 at 13:45; Stop 05/24/16 at 13:46; Status DC Albuterol Sulfate (Albuterol Concentrated Neb) 10 mg ONCE ONCE INH Last administered on 05/24/16at 14:58; Start 05/24/16 at 13:45; Stop 05/24/16 at 13 :46; Status DC Sodium Polystyrene Sulfonate 15 gm 15 gm ONCE ONCE PO Last administered on at 14:18; Start 05/24/16 at 13:45; Stop 05/24/16 at 13:46; Status DC Sodium Chloride 1,000 ml @ 999 mls/hr BOLUS ONCE IV Last administered on at 14:40; Start 05/24/16 at 14:00; Stop 05/24/16 at 15:00; Status DC Sodium Chloride (NS 1000 ml Inj) 1,000 ml @ 150 mls/hr Q6H40M IV Last administered on 05/29/16at 02:20; Start 05/24/16 at 14:33; Stop 05/29/16 at 14 :38; Status DC IV Flush (NS Flush) 2 ml UNSCH PRN IV FLUSH FLUSH AFTER USING IV ACCESS; Start 05/24/16 at 14:45; Stop 06/13/16 at 09:19; Status DC IV Flush (NS Flush) 2 ml BID IV FLUSH Last administered on 06/12/16t 23:09; Start 05/24/16 at 21:00; Stop 06/13/16 at 09:19; Status DC Pantoprazole Sodium (Protonix Inj) 40 mg DAILY IV Last administered on at 08:47; Start 05/24/16 at 15:30; Stop 05/29/16 at 14:39; Status DC Albuterol/ Ipratropium (Duoneb Neb) 1 ampule Q2HR NEB PRN INH WHEEZING; Start 05/24/16 at 14:45 Miscellaneous Information 1 Q361D XX Last administered on 05/24/16at 17:09; Start 05/24/16 at 14:45 Chlorhexidine Gluconate (Chlorhexidine 2% Cloth) 3 pack Taper DAILY@04 TOP Last administered on 05/25/16at 04:00; Start 05/25/16 at 04:00; Stop 05/29/16 at 14:38; Status DC Chlorhexidine Gluconate 3 pack 3 pack UNSCH PRN TOP HYGIENIC CARE; Start 05/24 at 14:45; Stop 05/29/16 at 14:38; Status DC Cefepime HCl 500 mg/Sodium Chloride 100 ml @ 200 mls/hr Q24H IV Last administered on 05/25/16at 16:29; Start 05/24/16 at 16:00; Stop 05/26/16 at 12 :54; Status DC Pharmacy Profile Note (Coumadin Consult Pharmacy) 0 ml @ 0 mls/hr UNSCH OTHER ; Start 05/24/16 at 14:45 Insulin Aspart 1 1 Q6HR SQ Last administered on 06/24/16t 10:46; Start at 15:30 Piperacillin Sod/ Tazobactam Sod 50 ml @ 100 mls/hr Q8H IV Last administered on 05/25/16at 05:24; Start 05/24/16 at 21:00; Stop 05/25/16 at 10:27; Status DC Pharmacy Profile Note (Vancomycin Consult Pharmacy) 0 ml @ 0 mls/hr UNSCH OTHER ; Start 05/24/16 at 16:15; Status Cancel Collagenase (Santyl Oint) 1 applic DAILY TOP Last administered on 06/24/16t 10: 45; Start 05/25/16 at 09:00 Miscellaneous Information SPECIFIC LAB TO BE DRAWN:VANCOMYCIN RANDOM DATE TO... ONCE ONCE XX ; Start 05/25/16 at 14:00; Stop 05/25/16 at 14:00; Status DC Acetaminophen/ Hydrocodone Bitart 1 tab 1 tab Q6H PRN PO PAIN Last administered on 06/12/16t 23:34; Start 05/24/16 at 23:45; Stop 06/13/16 at 09:21 ; Status DC Norepinephrine Bitartrate 250 ml @ 0 mls/hr TITRATE IV Last administered on at 01:07; Start 05/25/16 at 00:30; Stop 05/25/16 at 07:07; Status DC Piperacillin Sod/ Tazobactam Sod 50 ml @ 100 mls/hr Q8H IV Last administered on 05/29/16at 20:39; Start 05/25/16 at 13:00; Stop 05/29/16 at 23:06; Status DC Vancomycin HCl/ Sodium Chloride (Vancomycin Inj/ NS 250 ml Inj) 250 ml @ 250 mls/hr ONCE ONCE IV Last administered on 05/25/16at 11:49; Start 05/25/16 at 12:00; Stop 05/25/16 at 12:59; Status DC Miscellaneous Information SPECIFIC LAB TO BE DRAWN:RANDOM LEVEL DATE TO BE DR... ONCE ONCE XX Last administered on 05/26/16at 05:19; Start 05/26/16 at 06:00; Stop 05/26/16 at 06:01; Status DC Sodium Chloride (NS 250 ml Inj) 250 ml @ 15 mls/hr ONCE ONCE IV Last administered on 05/26/16at 09:40; Start 05/26/16 at 06:00; Stop 05/26/16 at 22 :39; Status DC Furosemide 20 mg 20 mg ONCE ONCE IV Last administered on 05/26/16at 12:37; Start 05/26/16 at 06:00; Stop 05/26/16 at 06:01; Status DC Vancomycin HCl/ Sodium Chloride (Vancomycin Inj/ NS 250 ml Inj) 262.5 ml @ 250 mls/hr Q24H IV Last administered on 05/29/16at 12:21; Start 05/26/16 at 12:00 ; Stop 05/29/16 at 15:10; Status DC Miscellaneous Information SPECIFIC LAB TO BE DAVID... ONCE ONCE XX ; Start 05/29 at 11:45; Stop 05/29/16 at 11:46; Status DC Cefepime HCl/ Sodium Chloride (Maxipime Inj/NS Inj) 100 ml @ 200 mls/hr Q24H IV Last administered on 05/27/16at 17:36; Start 05/26/16 at 16:00; Stop 05/28 at 09:04; Status DC Fluconazole (Diflucan) 200 mg DAILY PO Last administered on 06/12/16 08:58; Start 05/27/16 at 09:00; Stop 06/12/16 at 13:42; Status DC Warfarin Sodium (Coumadin) 5 mg DAILY@1600 PO Last administered on 05/29/16at 15:45; Start 05/27/16 at 16:00; Stop 05/31/16 at 11:40; Status DC Warfarin Sodium 0.5 mg 0.5 mg DAILY@16 PO Last administered on 05/29/16at 15:45 ; Start 05/27/16 at 16:00; Stop 05/31/16 at 11:37; Status DC Cefepime HCl/ Sodium Chloride (Maxipime Inj/NS Inj) 100 ml @ 200 mls/hr Q12H IV Last administered on 05/29/16at 08:46; Start 05/28/16 at 10:00; Stop 05/29 at 09:20; Status DC Warfarin Sodium (Coumadin) 7.5 mg ONCE ONCE PO Last administered on at 17:02; Start 05/28/16 at 16:00; Stop 05/28/16 at 16:01; Status DC Tamsulosin HCl (Flomax) 0.4 mg DAILY PO Last administered on 06/24/16 10:45; Start 05/28/16 at 15:00 Pantoprazole Sodium (Protonix) 40 mg DAILY PO Last administered on 06/24/16 10 :23; Start 05/30/16 at 09:00 Bumetanide 1 mg 1 mg ONCE ONCE IV PUSH Last administered on 05/29/16at 15:45; Start 05/29/16 at 15:00; Stop 05/29/16 at 15:01; Status DC Vancomycin HCl/ Sodium Chloride (Vancomycin Inj/ NS 250 ml Inj) 262.5 ml @ 262.5 mls/ hr Q18H IV Last administered on 05/30/16at 06:07; Start 05/30/16 at 06:00; Stop 05/30/16 at 11:27; Status DC Miscellaneous Information SPECIFIC LAB TO BE DAVID... ONCE ONCE XX ; Start 05/30 at 23:45; Stop 05/30/16 at 23:46; Status Cancel Vancomycin HCl/ Sodium Chloride (Vancomycin Inj/ NS 500 ml Inj) 515 ml @ 250 mls/hr Q18H IV Last administered on 06/01/16at 13:28; Start 05/31/16 at 00:00 ; Stop 06/01/16 at 14:39; Status DC Miscellaneous Information SPECIFIC LAB TO BE DRAWN:VANCOMYCIN TROUGH DATE TO... ONCE ONCE XX Last administered on 06/01/16at 13:27; Start 06/01/16 at 11:45; Stop 06/01/16 at 11:46; Status DC Warfarin Sodium (Coumadin) 4 mg DAILY@16 PO Last administered on 06/02/16at 16: 19; Start 05/31/16 at 16:00; Stop 06/05/16 at 11:08; Status DC Iohexol 100 ml 100 ml STK-MED ONCE IV Last administered on 06/01/16at 13:18; Start 06/01/16 at 13:18; Stop 06/01/16 at 13:19; Status DC Vancomycin HCl/ Sodium Chloride (Vancomycin Inj/ NS 500 ml Inj) 515 ml @ 250 mls/hr Q24H IV Last administered on 06/06/16at 13:52; Start 06/02/16 at 14:00 ; Stop 06/06/16 at 15:00; Status DC Miscellaneous Information SPECIFIC LAB TO BE DRAWN:VANCOMYCIN TROUGH DATE TO... ONCE ONCE XX Last administered on 06/04/16at 13:55; Start 06/04/16 at 13:45; Stop 06/04/16 at 13:46; Status DC Miscellaneous Information SPECIFIC LAB TO BE DAVID... ONCE ONCE XX Last administered on 06/06/16at 13:45; Start 06/06/16 at 13:45; Stop 06/06/16 at 13 :46; Status DC Warfarin Sodium 3 mg 3 mg DAILY@16 PO Last administered on 06/08/16at 15:40; Start 06/05/16 at 16:00; Stop 06/13/16 at 09:27; Status DC Vancomycin HCl/ Sodium Chloride (Vancomycin Inj/ NS 500 ml Inj) 517.5 ml @ 250 mls/hr Q36H IV Last administered on 06/12/16 18:18; Start 06/08/16 at 06:00; Stop 06/12/16 at 19:09; Status DC Miscellaneous Information SPECIFIC LAB TO BE DRAWN:VANCOMYCIN TROUGH DATE TO... ONCE ONCE XX Last administered on 06/12/16 17:45; Start 06/12/16 at 17:45; Stop 06/12/16 at 17:46; Status DC Gadodiamide (Omniscan Pf Inj) 22 ml STK-MED ONCE IV Last administered on at 10:21; Start 06/07/16 at 10:21; Stop 06/07/16 at 10:22; Status DC Phytonadione 5 mg 5 mg ONCE ONCE SQ Last administered on 06/11/16 06:30; Start 06/11/16 at 06:30; Stop 06/11/16 at 06:31; Status DC Sodium Chloride (NS 250 ml Inj) 250 ml @ 15 mls/hr ONCE ONCE IV Last administered on 06/11/16 00:00; Start 06/11/16 at 15:00; Stop 06/12/16 at 07:39; Status DC Acetaminophen (Tylenol) 650 mg Q4H PRN PO SEE LABEL COMMENTS; Start 06/11/16 at 15:00; Stop 06/11/16 at 19:01; Status DC Diphenhydramine HCl (Benadryl) 25 mg Q4H PRN PO SEE LABEL COMMENTS; Start at 15:00; Stop 06/11/16 at 19:01; Status DC Furosemide (Lasix Inj) 20 mg ONCE ONCE IV Last administered on 06/11/16 04:00 ; Start 06/11/16 at 15:00; Stop 06/11/16 at 15:01; Status DC Phytonadione 5 mg 5 mg ONCE ONCE SQ Last administered on 06/12/16 08:56; Start 06/12/16 at 06:50; Stop 06/12/16 at 06:51; Status DC Vancomycin HCl/ Sodium Chloride (Vancomycin Inj/ NS 500 ml Inj) 515 ml @ 250 mls/hr Q24H IV ; Start 06/13/16 at 18:00; Status Cancel Miscellaneous Information SPECIFIC LAB TO BE DRAWN:VANCO TROUGH DATE TO BE DR... ONCE ONCE XX ; Start 06/14/16 at 17:45; Stop 06/14/16 at 17:46; Status Cancel Vancomycin HCl/ Sodium Chloride (Vancomycin Inj/ NS 500 ml Inj) 517.5 ml @ 250 mls/hr Q36H IV Last administered on 06/20/16 06:30; Start 06/14/16 at 06:00; Stop 06/21/16 at 10:06; Status DC Sugammadex Sodium (Bridion Inj) 200 mg STK-MED ONCE IV PUSH ; Start 06/13/16 at 06:53; Stop 06/13/16 at 07:00; Status DC Acetaminophen (Ofirmev Inj) 1,000 mg STK-MED ONCE IV ; Start 06/13/16 at 06:53; Stop 06/13/16 at 07:00; Status DC Vancomycin HCl 1000 mg 1,000 mg STK-MED ONCE .ROUTE Last administered on 07:52; Start 06/13/16 at 07:04; Stop 06/13/16 at 07:17; Status DC Cefazolin Sodium/ Dextrose (Ancef 2 Gm Premix) 50 ml @ As Directed STK-MED ONCE .ROUTE Last administered on 06/13/16 07:53; Start 06/13/16 at 07:04; Stop at 07:17; Status DC Bupivacaine HCl/ Epinephrine Bitart (Marcaine-Epi Pf 0.25% Inj) 30 ml STK-MED ONCE .ROUTE Last administered on 06/13/16 07:51; Start 06/13/16 at 07:04; Stop 06/13/16 at 07:17; Status DC Cefazolin Sodium (Ancef Inj) 1,000 mg STK-MED ONCE .ROUTE Last administered on 06/13/16 07:52; Start 06/13/16 at 07:04; Stop 06/13/16 at 07:17; Status DC Gentamicin Sulfate 240 mg 240 mg STK-MED ONCE .ROUTE ; Start 06/13/16 at 07:05; Stop 06/13/16 at 07:17; Status DC Sodium Chloride (NS 250 ml Inj) 250 ml @ As Directed STK-MED ONCE .ROUTE ; Start 06/13/16 at 07:05; Stop 06/13/16 at 07:17; Status DC Ketamine HCl (Ketalar Inj) 500 mg STK-MED ONCE .ROUTE ; Start 06/13/16 at 07:24; Stop 06/13/16 at 07:35; Status DC IV Flush (NS Flush) 2 ml UNSCH PRN IVF FLUSH AFTER USING IV ACCESS; Start at 09:15 IV Flush (NS Flush) 2 ml BID IVF Last administered on 06/23/16 22:20; Start at 21:00 Acetaminophen/ Hydrocodone Bitart ([place]ity 10-325 Mg) 1 tab Q3H PRN PO PAIN LESS THAN 5 ON SCALE Last administered on 06/24/16 11:07; Start 06/13/16 at 09:15 Acetaminophen/ Hydrocodone Bitart ([place]ity 10-325 Mg) 2 tab Q6H PRN PO PAIN GREATER THAN/EQUAL TO 5 Last administered on 06/23/16 16:09; Start 06/13/16 at 09:15 Gabapentin (Neurontin) 300 mg TID PO Last administered on 06/24/16 10:23; Start 06/13/16 at 13:00 Morphine Sulfate (Morphine Inj) 4 mg Q3H PRN IV PUSH break thru pain Last administered on 06/21/16 14:10; Start 06/13/16 at 09:15 Warfarin Sodium (Coumadin) 3 mg DAILY@16 PO Last administered on 06/23/16 16: 00; Start 06/14/16 at 16:00 Albuterol Sulfate (*ALBUTEROL NEB PERIprocedure ONLY) 2.5 mg STK-MED ONCE NEB ; Start 06/13/16 at 09:29; Stop 06/13/16 at 09:30; Status DC Midazolam HCl (Versed Inj) 2 mg STK-MED ONCE .ROUTE ; Start 06/13/16 at 09:30; Stop 06/13/16 at 09:31; Status DC Miscellaneous Information ALL NURSING DEPARTME... UNSCH PRN XX SEE LABEL COMMENTS; Start 06/13/16 at 09:20; Stop 06/14/16 at 09:19; Status DC Miscellaneous Information SPECIFIC LAB TO BE DRAWN:REJI TROUGH DATE TO BE DRNoam.. ONCE ONCE XX Last administered on 06/14/16 05:54; Start 06/14/16 at 05:45 ; Stop 06/14/16 at 05:46; Status DC Propofol (Diprivan 200 Mg/20 ml Inj) 200 mg STK-MED ONCE IV ; Start 06/13/16 at 12:00; Stop 06/14/16 at 10:19; Status DC Ondansetron HCl 4 mg 4 mg STK-MED ONCE IV PUSH ; Start 06/13/16 at 12:00; Stop at 10:19; Status DC Lactated Ringer's (Lr 1000 ml Inj) 1,000 ml @ As Directed STK-MED ONCE IV ; Start 06/13/16 at 12:00; Stop 06/14/16 at 10:19; Status DC Ephedrine Sulfate (ePHEDrine/NS 50 MG/5 ML SYR) 50 mg STK-MED ONCE IV ; Start at 12:00; Stop 06/14/16 at 10:19; Status DC Phenylephrine HCl (Neosynephrine/ NS 1000 Mcg/10ml Syr) 1,000 mcg STK-MED ONCE IV ; Start 06/13/16 at 12:00; Stop 06/14/16 at 10:19; Status DC Miscellaneous Information SPECIFIC LAB TO BE DRAWN:VANCOMYCIN TROUGH DATE TO... ONCE ONCE XX Last administered on 06/17/16 05:55; Start 06/17/16 at 05:45; Stop 06/17/16 at 05:46; Status DC Acetaminophen (Ofirmev Inj) 650 mg ONCE ONCE IV Last administered on 06/15/16 01:23; Start 06/15/16 at 01:15; Stop 06/15/16 at 01:16; Status DC Warfarin Sodium 2 mg 2 mg ONCE PO Last administered on 06/15/16 18:10; Start at 16:00; Stop 06/15/16 at 21:00; Status DC Sodium Chloride (NS 1000 ml Inj) 1,000 ml @ 70 mls/hr [id number] IV Last administered on 06/16/16 02:40; Start 06/15/16 at 11:38; Stop 06/16/16 at 09:35; Status DC Aspirin (Aspirin Chew) 162 mg NOW STAT PO Last administered on 06/15/16 12:27 ; Start 06/15/16 at 12:16; Stop 06/15/16 at 12:21; Status DC Atorvastatin Calcium 20 mg 20 mg HS PO Last administered on 06/23/16 22:20; Start 06/15/16 at 21:00 Sodium Chloride 1,000 ml @ 999 mls/hr BOLUS ONCE IV Last administered on 15:14; Start 06/15/16 at 12:30; Stop 06/15/16 at 13:30; Status DC Sodium Chloride 250 ml @ 15 mls/hr ONCE ONCE IV Last administered on 12:33; Start 06/16/16 at 09:30; Stop 06/17/16 at 02:09; Status DC Ceftriaxone Sodium 1000 mg/ Sodium Chloride 100 ml @ 200 mls/hr Q24H IV Last administered on 06/16/16 12:33; Start 06/16/16 at 10:00; Stop 06/16/16 at 17:43; Status DC Piperacillin Sod/ Tazobactam Sod 50 ml @ 100 mls/hr Q6H IV Last administered on 06/22/16 09:16; Start 06/16/16 at 20:00; Stop 06/22/16 at 10:39; Status DC Sodium Chloride (NS 500 ml Inj) 500 ml @ 50 mls/hr Q10H ONCE IV Last administered on 06/18/16 13:34; Start 06/18/16 at 13:15; Stop 06/18/16 at 23:14; Status DC Furosemide (Lasix Inj) 20 mg ONCE ONCE IV PUSH Last administered on 06/20/16 12:54; Start 06/20/16 at 10:45; Stop 06/20/16 at 10:46; Status DC Miscellaneous Information SPECIFIC LAB TO BE DRAWN:VANCOMYCIN TROUGH DATE TO... ONCE ONCE XX ; Start 06/21/16 at 17:45; Stop 06/21/16 at 17:46; Status Cancel Diatrizoate Meglum/ Diatrizoate Sod ( Gastroview Liq) 18 ml ONCE ONCE PO Last administered on 06/22/16 12:15; Start 06/22/16 at 10:51; Stop 06/22/16 at 11:34; Status DC Iohexol (Omnipaque 350 Inj) 95 ml STK-MED ONCE IV Last administered on 17:46; Start 06/22/16 at 17:46; Stop 06/22/16 at 17:47; Status DC Furosemide (Lasix Inj) 20 mg DAILY IV PUSH Last administered on 06/24/16 10:23 ; Start 06/23/16 at 09:00 Potassium Chloride (KCl) 20 meq DAILY PO Last administered on 06/24/16 09:00; Start 06/23/16 at 09:00 A/P Assessment and Plan A/P s/p left AKA - Post surgical management post operative pain rehabilitation as per surgical service - Abx discontinued. Appreciate rehabilitation medicine's recommendations concerning long-term recommendations in rehabilitation and improvement of ADL fluid overload- continue IV lasix- neb treatment as needed.CXR in am. generalized abdominal pain; improved.CT of the abdomen as noted above. Acute kidney injury improved on IV hydration- Previous Sepsis on admission. Resolved. - Initially thought to be secondary to Natalie UTI, however most likely secondary to osteomyelitis. -urinary retention; the patient says that he failed the voiding trial before and wants to continue with cabello at this time. Acute Anemia. Currently asymptomatic -Slow decline. Likely anemia of inflammation - - s/p PRBC transfusion with improved H/H. -GI consult appreciated; no plan for colonoscopy at this time. Type 2 diabetes. Overall Control. Continue sliding scale insulin. Atrial fibrillation. Currently heart rate is controlled. Restarted warfarin - PT/INR monitoring. Diabetic neuropathy. Chronic. Continue gabapentin. Tobaccoism. Recommend cessation. Hypertension and now borderline hypotensive due to infection. Hold all antihypertensives . UTI. On admission with Natalie glabrata. Status post diflucan. DVT Prophylaxis. Coumadin restarted . Discharge Planning dc to SNF within the next 24-48 hrs if stable. Ronn Pugh MD Jun 24, 2016 12:50
--- NOTE | 2016-06-24 14:02 | HHI.GIFU ---
Subjective Remarks Patient is sitting up in bed eating lunch, denies nausea, vomiting, hematemesis , hematochezia or melena. (Martell Forbes CROWN CERAMIST) Objective Vitals I&O Vital Signs Date Time Temp Pulse Resp B/P Pulse Ox O2 Delivery O2 Flow Rate FiO2 06/24/16 08:00 Nasal Cannula 2.00 06/24/16 08:00 98.3 84 20 127/60 96 06/24/16 07:58 83 06/24/16 04:00 98.0 80 16 116/59 98 06/23/16 22:57 98 Nasal Cannula 2.00 06/23/16 20:00 80 06/23/16 20:00 98.3 80 20 127/53 98 06/23/16 20:00 Nasal Cannula 2.00 06/23/16 17:30 20 06/23/16 16:00 97.9 78 20 107/60 97 06/23/16 15:26 75 I/O 06/23/16 06/23/16 06/23/16 06/24/16 06/24/16 06/24/16 07:00 15:00 23:00 07:00 15:00 23:00 Intake Total 720 ml 600 ml 0 ml 360 ml Output Total 900 ml 1200 ml 400 ml 800 ml Balance -180 ml -600 ml -400 ml -440 ml Intake Oral 720 ml 600 ml 360 ml IV Total 0 ml Output Urine Total 900 ml 1200 ml 400 ml 800 ml # Bowel Movements 1 0 Laboratory Laboratory Tests Test 06/24/16 07:46 Prothrombin Time 25.2 Prothromb Time International 2.2 Ratio Sodium Level 143 Potassium Level 3.8 Chloride Level 103 Carbon Dioxide Level 30.3 Anion Gap 10 Blood Urea Nitrogen 19 Creatinine 1.61 Estimat Glomerular Filtration 43 Rate Random Glucose 112 Calcium Level 8.4 Imaging Last Impressions Chest X-Ray 06/22/16 0000 Signed Impressions: Service Date/Time: June 10:54 - CONCLUSION: Exam consistent with worsening congestive heart failure and by basilar airspace consolidation. Sonja Bolton MD Abdomen/Pelvis CT 06/22/16 0000 Signed Impressions: Service Date/Time: June 17:23 - CONCLUSION: 1. Uncomplicated colonic diverticulosis. 2. Small bilateral pleural effusions with adjacent compressive atelectasis. 3. Scattered tiny calcified nonobstructing bilateral renal calculi. 4. Degenerative changes and scoliosis of the lumbar spine. Raúl Fregoso MD Abdomen Ultrasound 06/21/16 0000 Signed Impressions: Service Date/Time: Tuesday, June 21, 2016 10:33 - CONCLUSION: There is no significant ascites. Nahid Cazares MD FACR Brain MRI 06/15/16 1143 Signed Impressions: Service Date/Time: June 12:49 - CONCLUSION: 1. Cerebral atrophy and extensive chronic ischemic small vessel vasculopathy. 2. No acute infarction. Subhash Arteaga MD Carotid Artery Ultrasound 06/15/16 0000 Signed Impressions: Service Date/Time: June 18:56 - CONCLUSION: 1. Bilateral carotid bifurcation atherosclerosis, moderate on the right and mild on the left. No hemodynamically significant narrowing on either side. 2. Limited study and the vertebral arteries are not well-visualized today. They had antegrade flow within them on the prior ultrasound. Bret Truong MD Foot MRI 06/07/16 0000 Signed Impressions: Service Date/Time: Tuesday, June 07, 2016 09:34 - CONCLUSION: 1. Deep soft tissue ulcer of the midfoot and with associated osteomyelitis of the plantar/lateral aspect of the fourth metatarsal base and mid to distal cuboid. Please see above. Fifth metatarsal previously resected. 2. Second toe amputation since the prior MRI. Indurated soft tissues and focal cortical destruction seen of the second metatarsal head remnant. No deep osteomyelitis of the second metatarsal. 3. No soft tissue abscesses are demonstrated. 4. Apparent cellulitis of the heel pad. No calcaneal osteomyelitis demonstrated. Bret Truong MD Ankle MRI 06/07/16 0000 Signed Impressions: Service Date/Time: Tuesday, June 07, 2016 09:34 - CONCLUSION: 1. No evidence of osteomyelitis. 2. Old healed fracture of the distal fibula. 3. Subcutaneous nonspecific edema. Juan Bonilla MD Upper Extremity Ultrasound 06/05/16 0000 Signed Impressions: Service Date/Time: Sunday, June 05, 2016 20:02 - CONCLUSION: Normal examination. Don Izaguirre MD Aorta w/Runoff CTA 06/01/16 0000 Signed Impressions: Service Date/Time: May 12:13 - CONCLUSION: 1. Heavily diseased but adequate in flow down to the level of the groin bilaterally. 2. 3. Right le. Diffusely diseased superficial femoral artery with multiple areas of moderate and scattered areas of high grade stenosis. The popliteal is diseased but adequate in caliber. Distally, there is single vessel runoff into the foot via the anterior tibial. 5. 6. Left le. Heavily diseased superficial femoral with scattered areas of moderate and high grade stenosis. The popliteal is heavily diseased as well. Distally, there is occlusion of the origin of all 3 trifurcation vessels. Eventually, there is reconstitution of the anterior tibial and posterior tibial. Aric Cazares MD Head CT 05/24/16 1217 Signed Impressions: Service Date/Time: Tuesday, May 24, 2016 12:55 - CONCLUSION: 1. No acute intracranial abnormality. 2. Atrophy. 3. Chronic small vessel ischemic change. Juvenal Jarquin Jr., MD Physical Exam HEENT: Normocephalic; atraumatic; no jaundice. CHEST: CTA. CARDIAC: RRR. ABDOMEN: Soft, nondistended, nontender; no hepatosplenomegaly; bowel sounds are present in all four quadrants. EXTREMITIES: Left AKA SKIN: Normal; no rash; no jaundice. MOTORCOACH OPERATOR: No focal deficits; alert and oriented times three. (Martell Forbes) Assessment and Plan Plan ASSESSMENT: - Chronic Anemia. He is being worked up for possible TIA. He is on Coumadin. EGD on (05/09/16)--->reflux esophagitis, small hiatal hernia, gastritis, bx showed barrettes. He never had a colonoscopy before. No obvious active bleeding. S/P 5 units PRBC. 9.3/27.4 He is not having any obvious active GI bleeding and he is not stable for colonoscopy at this time secondary to recent AKA, risk of contamination - TIA. Neurology on the case, work up in progress - Osteomyelitis of left ankle S/P AKA (06/13/16) - Atrial fibrillation. on Coumadin - PVD, DM, CHF, Depression, COPD, HTN per primary PLAN: - SUSAN - CBC in am - Transfuse as needed - No signs of active bleeding. - Would hold on colonoscopy at this time secondary to recent AKA and risk of contamination - Pt seen and examined by Dr. Link and myself and this note is written on his behalf (Martell Forbes) Physician Comments Patient seen and examined Agree with above Continue with current supportive care Monitor labs But his blood counts appear to be trending down etiology unclear Considering colonoscopy (Raul Link MD) Martell Forbes Jun 24, 2016 14:02 Raul Link MD Jun 24, 2016 20:08
[2016-06-24] MEDS: WARFARIN SOD 3 MG TAB PO SCH (18:03)
[2016-06-24] MEDS: ATORVASTATIN 20 MG TAB PO SCH (20:59)
[2016-06-24] MEDS: SODIUM CHLORIDE 0.9% FLUSH 5 ML FLUSH IVF SCH (20:59)
[2016-06-25] VITALS (8 sets, daily range): BP systolic 111–135; BP diastolic 55–69; PULSE 71–83; RESP 18–20; TEMP 97.6–99; O2SAT 97–100
[2016-06-25] MEDS: INSULIN ASPART SUPPLEMENTAL SCALE SQ SCH ×4 (06:00→17:49)
--- NOTE | 2016-06-25 06:03 | RADRPT ---
EXAM DATE/TIME: 06/25/2016 04:34 [facility] COMPARISON: CHEST SINGLE AP, June 22, 2016, 10:54. INDICATIONS : Shortness of breath, possible pulmonary disease. MEDICAL HISTORY : Diabetes mellitus type II. Cardiovascular disease. Chronic obstructive pulmonary disease. Sepsis, acute renal failure SURGICAL HISTORY : Cholecystectomy. ENCOUNTER: Subsequent ACUITY: 4 - 6 days PAIN SCORE: 0/10 LOCATION: Bilateral chest FINDINGS: The cardiac silhouette is enlarged in transverse diameter. There are findings of congestive heart keisha lure with interstitial and alveolar opacity bilaterally. The findings are improved when compared with the prior exam. No pleural effusions are identified. CONCLUSION: 1. Cardiomegaly and findings of congestive heart failure. The findings are improved when compared wit h the prior exam. James Leung MD on June 25, 2016 at 6:01 Board Certified Radiologist. This report was verified electronically.
[2016-06-25 08:02] LABS: INTERNATIONAL NORMALIZED RATIO 1.9 RATIO; PROTHROMBIN TIME - PATIENT 21.7 SEC (9.8-11.6)
[2016-06-25 08:04] LABS: AUTOMATED NEUTROPHIL # 5.3 TH/MM3 (1.8-7.7); BASOPHIL # 0.1 TH/MM3 (0-0.2); BASOPHIL % 1.2 % (0.0-2.0); EOSINOPHIL # 0.3 TH/MM3 (0-0.4); EOSINOPHIL % 3.6 % (0.0-4.0); HEMATOCRIT 28.5 % (39.0-51.0); HEMO FLAGS DIFF FINAL; LYMPH % 15.6 % (9.0-44.0); LYMPHOCYTE # 1.2 TH/MM3 (1.0-4.8); MEAN CELL VOLUME 90.7 FL (80.0-100.0); MEAN CORPUSCULAR HEMOGLOBIN 30.3 PG (27.0-34.0); MEAN CORPUSCULAR HGB CONC 33.4 % (32.0-36.0); MONO % 8.8 % (0.0-8.0); NEUT % 70.8 % (16.0-70.0); PLATELET COUNT 204 TH/MM3 (150-450); RED BLOOD COUNT 3.15 MIL/MM3 (4.50-5.90); RED CELL DISTRIBUTION WIDTH 16.8 % (11.6-17.2); WHITE BLOOD COUNT 7.5 TH/MM3 (4.0-11.0)
[2016-06-25] MEDS: SODIUM CHLORIDE 0.9% FLUSH 5 ML FLUSH IVF SCH ×2 (09:04→21:42)
[2016-06-25] MEDS: PANTOPRAZOLE SOD 40 MG DELAYED RELEASE TAB PO SCH (09:04)
[2016-06-25] MEDS: FUROSEMIDE 20 MG/2 ML VIAL IV PUSH SCH (09:04)
[2016-06-25] MEDS: POTASSIUM CHLORIDE 20 MEQ CONTROLLED RELEASE TAB PO SCH (09:04)
[2016-06-25] MEDS: GABAPENTIN 300 MG CAP PO SCH ×3 (09:04→17:46)
[2016-06-25] MEDS: TAMSULOSIN HCL 0.4 MG CAP PO SCH (09:04)
[2016-06-25] MEDS: COLLAGENASE OINT 30 GM TUBE TOP SCH (09:05)
[2016-06-25] MEDS: ACETAMINOPHEN/HYDROcodone 325 MG/10 MG TAB PO PRN ×4 (09:09→21:42)
--- NOTE | 2016-06-25 12:58 | HHI.PR ---
Subjective Remarks overall doing better. sob has improved. good urine output. no fever. Objective Vitals Vital Signs Date Time Temp Pulse Resp B/P Pulse Ox O2 Delivery O2 Flow Rate FiO2 06/25/16 12:12 98.3 76 18 130/69 100 06/25/16 10:09 17 06/25/16 09:03 77 06/25/16 09:03 Nasal Cannula 2.00 06/25/16 08:00 97.6 76 20 119/62 98 06/25/16 04:00 97.9 74 20 123/64 99 06/25/16 00:00 99.0 83 18 135/63 98 06/24/16 20:00 73 06/24/16 20:00 99.2 84 20 148/76 94 06/24/16 20:00 Nasal Cannula 2.00 06/24/16 16:00 98.0 83 20 137/69 92 I/O 06/24/16 06/24/16 06/24/16 06/25/16 06/25/16 06/25/16 07:00 15:00 23:00 07:00 15:00 23:00 Intake Total 360 ml 720 ml 360 ml 480 ml Output Total 800 ml 2000 ml 200 ml 1100 ml Balance -440 ml -1280 ml 160 ml -620 ml Intake Oral 360 ml 720 ml 360 ml 480 ml Output Urine Total 800 ml 2000 ml 200 ml 1100 ml # Bowel Movements 1 0 1 Result Diagram: 06/25/16 0711 06/24/16 0746 Imaging Last Impressions Chest X-Ray 06/22/16 0000 Signed Impressions: Service Date/Time: June 10:54 - CONCLUSION: Exam consistent with worsening congestive heart failure and by basilar airspace consolidation. Sonja Bolton MD Abdomen/Pelvis CT 06/22/16 0000 Signed Impressions: Service Date/Time: June 17:23 - CONCLUSION: 1. Uncomplicated colonic diverticulosis. 2. Small bilateral pleural effusions with adjacent compressive atelectasis. 3. Scattered tiny calcified nonobstructing bilateral renal calculi. 4. Degenerative changes and scoliosis of the lumbar spine. Raúl Fregoso MD Abdomen Ultrasound 06/21/16 0000 Signed Impressions: Service Date/Time: Tuesday, June 21, 2016 10:33 - CONCLUSION: There is no significant ascites. Nahid Cazares MD FACR Brain MRI 06/15/16 1143 Signed Impressions: Service Date/Time: June 12:49 - CONCLUSION: 1. Cerebral atrophy and extensive chronic ischemic small vessel vasculopathy. 2. No acute infarction. Subhash Arteaga MD Carotid Artery Ultrasound 06/15/16 0000 Signed Impressions: Service Date/Time: June 18:56 - CONCLUSION: 1. Bilateral carotid bifurcation atherosclerosis, moderate on the right and mild on the left. No hemodynamically significant narrowing on either side. 2. Limited study and the vertebral arteries are not well-visualized today. They had antegrade flow within them on the prior ultrasound. Bret Truong MD Foot MRI 06/07/16 0000 Signed Impressions: Service Date/Time: Tuesday, June 07, 2016 09:34 - CONCLUSION: 1. Deep soft tissue ulcer of the midfoot and with associated osteomyelitis of the plantar/lateral aspect of the fourth metatarsal base and mid to distal cuboid. Please see above. Fifth metatarsal previously resected. 2. Second toe amputation since the prior MRI. Indurated soft tissues and focal cortical destruction seen of the second metatarsal head remnant. No deep osteomyelitis of the second metatarsal. 3. No soft tissue abscesses are demonstrated. 4. Apparent cellulitis of the heel pad. No calcaneal osteomyelitis demonstrated. Bret Truong MD Ankle MRI 06/07/16 0000 Signed Impressions: Service Date/Time: Tuesday, June 07, 2016 09:34 - CONCLUSION: 1. No evidence of osteomyelitis. 2. Old healed fracture of the distal fibula. 3. Subcutaneous nonspecific edema. Juan Bonilla MD Upper Extremity Ultrasound 06/05/16 0000 Signed Impressions: Service Date/Time: Sunday, June 05, 2016 20:02 - CONCLUSION: Normal examination. Don Izaguirre MD Aorta w/Runoff CTA 06/01/16 0000 Signed Impressions: Service Date/Time: May 12:13 - CONCLUSION: 1. Heavily diseased but adequate in flow down to the level of the groin bilaterally. 2. 3. Right le. Diffusely diseased superficial femoral artery with multiple areas of moderate and scattered areas of high grade stenosis. The popliteal is diseased but adequate in caliber. Distally, there is single vessel runoff into the foot via the anterior tibial. 5. 6. Left le. Heavily diseased superficial femoral with scattered areas of moderate and high grade stenosis. The popliteal is heavily diseased as well. Distally, there is occlusion of the origin of all 3 trifurcation vessels. Eventually, there is reconstitution of the anterior tibial and posterior tibial. Aric Cazares MD Head CT 05/24/16 1217 Signed Impressions: Service Date/Time: Tuesday, May 24, 2016 12:55 - CONCLUSION: 1. No acute intracranial abnormality. 2. Atrophy. 3. Chronic small vessel ischemic change. Juvenal Jarquin Jr., MD Objective Remarks GENERAL: This is a well-nourished, well-developed patient, in no apparent distress. CARDIOVASCULAR: Regular rate and regular rhythm without murmurs, gallops, or rubs. RESPIRATORY: Clear to auscultation. Breath sounds equal bilaterally. No wheezes , rales, or rhonchi. GASTROINTESTINAL: Abdomen soft, non-tender, distended. Normal, active bowel sounds MUSCULOSKELETAL: s/p left AKA NEURO: Alert & Oriented x4 to person, place, time, situation. Moves all ext x4 Procedures left AKA Medications and IVs Current Medications IV Flush 2 ml 2 ml UNSCH PRN IVF FLUSH AFTER USING IV ACCESS; Start 05/24/16 at 12:30; Stop 05/24/16 at 15:31; Status DC Sodium Chloride 1,000 ml @ 1,000 mls/hr Q1H IV Last administered on at 13:23; Start 05/24/16 at 12:17; Stop 05/24/16 at 13:16; Status DC Piperacillin Sod/ Tazobactam Sod 100 ml @ 200 mls/hr ONCE ONCE IV Last administered on 05/24/16at 13:23; Start 05/24/16 at 12:30; Stop 05/24/16 at 12 :59; Status DC Vancomycin HCl/ Sodium Chloride (Vancomycin Inj/ NS 250 ml Inj) 250 ml @ 250 mls/hr ONCE ONCE IV Last administered on 05/24/16at 14:47; Start 05/24/16 at 12:30; Stop 05/24/16 at 13:29; Status DC Calcium Gluconate (Calcium Gluconate Inj) 1 gm ONCE ONCE SLOW IVP Last administered on 05/24/16at 14:40; Start 05/24/16 at 13:45; Stop 05/24/16 at 13 :46; Status DC Insulin Human Regular (NovoLIN R INJ) 10 units ONCE ONCE IV PUSH Last administered on 05/24/16at 14:39; Start 05/24/16 at 14:00; Stop 05/24/16 at 14 :01; Status DC Dextrose (D50w (Vial) Inj) 50 ml ONCE ONCE IV PUSH Last administered on at 14:39; Start 05/24/16 at 13:45; Stop 05/24/16 at 13:46; Status DC Sodium Bicarbonate (Sodium Bicarbonate 8.4% Inj) 50 meq ONCE ONCE SLOW IVP Last administered on 05/24/16at 14:23; Start 05/24/16 at 13:45; Stop 05/24/16 at 13:46; Status DC Albuterol Sulfate (Albuterol Concentrated Neb) 10 mg ONCE ONCE INH Last administered on 05/24/16at 14:58; Start 05/24/16 at 13:45; Stop 05/24/16 at 13 :46; Status DC Sodium Polystyrene Sulfonate 15 gm 15 gm ONCE ONCE PO Last administered on at 14:18; Start 05/24/16 at 13:45; Stop 05/24/16 at 13:46; Status DC Sodium Chloride 1,000 ml @ 999 mls/hr BOLUS ONCE IV Last administered on at 14:40; Start 05/24/16 at 14:00; Stop 05/24/16 at 15:00; Status DC Sodium Chloride (NS 1000 ml Inj) 1,000 ml @ 150 mls/hr Q6H40M IV Last administered on 05/29/16at 02:20; Start 05/24/16 at 14:33; Stop 05/29/16 at 14 :38; Status DC IV Flush (NS Flush) 2 ml UNSCH PRN IV FLUSH FLUSH AFTER USING IV ACCESS; Start 05/24/16 at 14:45; Stop 06/13/16 at 09:19; Status DC IV Flush (NS Flush) 2 ml BID IV FLUSH Last administered on 06/12/16t 23:09; Start 05/24/16 at 21:00; Stop 06/13/16 at 09:19; Status DC Pantoprazole Sodium (Protonix Inj) 40 mg DAILY IV Last administered on at 08:47; Start 05/24/16 at 15:30; Stop 05/29/16 at 14:39; Status DC Albuterol/ Ipratropium (Duoneb Neb) 1 ampule Q2HR NEB PRN INH WHEEZING; Start 05/24/16 at 14:45 Miscellaneous Information 1 [id number] XX Last administered on 05/24/16at 17:09; Start 05/24/16 at 14:45 Chlorhexidine Gluconate (Chlorhexidine 2% Cloth) 3 pack Taper DAILY@04 TOP Last administered on 05/25/16at 04:00; Start 05/25/16 at 04:00; Stop 05/29/16 at 14:38; Status DC Chlorhexidine Gluconate 3 pack 3 pack UNSCH PRN TOP HYGIENIC CARE; Start 05/24 at 14:45; Stop 05/29/16 at 14:38; Status DC Cefepime HCl 500 mg/Sodium Chloride 100 ml @ 200 mls/hr Q24H IV Last administered on 05/25/16at 16:29; Start 05/24/16 at 16:00; Stop 05/26/16 at 12 :54; Status DC Pharmacy Profile Note (Coumadin Consult Pharmacy) 0 ml @ 0 mls/hr UNSCH OTHER ; Start 05/24/16 at 14:45 Insulin Aspart 1 1 Q6HR SQ Last administered on 06/25/16 11:49; Start at 15:30 Piperacillin Sod/ Tazobactam Sod 50 ml @ 100 mls/hr Q8H IV Last administered on 05/25/16at 05:24; Start 05/24/16 at 21:00; Stop 05/25/16 at 10:27; Status DC Pharmacy Profile Note (Vancomycin Consult Pharmacy) 0 ml @ 0 mls/hr UNSCH OTHER ; Start 05/24/16 at 16:15; Status Cancel Collagenase (Santyl Oint) 1 applic DAILY TOP Last administered on 06/25/16t 09: 05; Start 05/25/16 at 09:00 Miscellaneous Information SPECIFIC LAB TO BE DRAWN:VANCOMYCIN RANDOM DATE TO... ONCE ONCE XX ; Start 05/25/16 at 14:00; Stop 05/25/16 at 14:00; Status DC Acetaminophen/ Hydrocodone Bitart 1 tab 1 tab Q6H PRN PO PAIN Last administered on 06/12/16t 23:34; Start 05/24/16 at 23:45; Stop 06/13/16 at 09:21 ; Status DC Norepinephrine Bitartrate 250 ml @ 0 mls/hr TITRATE IV Last administered on at 01:07; Start 05/25/16 at 00:30; Stop 05/25/16 at 07:07; Status DC Piperacillin Sod/ Tazobactam Sod 50 ml @ 100 mls/hr Q8H IV Last administered on 05/29/16at 20:39; Start 05/25/16 at 13:00; Stop 05/29/16 at 23:06; Status DC Vancomycin HCl/ Sodium Chloride (Vancomycin Inj/ NS 250 ml Inj) 250 ml @ 250 mls/hr ONCE ONCE IV Last administered on 05/25/16at 11:49; Start 05/25/16 at 12:00; Stop 05/25/16 at 12:59; Status DC Miscellaneous Information SPECIFIC LAB TO BE DRAWN:RANDOM LEVEL DATE TO BE DRoNam.. ONCE ONCE XX Last administered on 05/26/16at 05:19; Start 05/26/16 at 06:00; Stop 05/26/16 at 06:01; Status DC Sodium Chloride (NS 250 ml Inj) 250 ml @ 15 mls/hr ONCE ONCE IV Last administered on 05/26/16at 09:40; Start 05/26/16 at 06:00; Stop 05/26/16 at 22 :39; Status DC Furosemide 20 mg 20 mg ONCE ONCE IV Last administered on 05/26/16at 12:37; Start 05/26/16 at 06:00; Stop 05/26/16 at 06:01; Status DC Vancomycin HCl/ Sodium Chloride (Vancomycin Inj/ NS 250 ml Inj) 262.5 ml @ 250 mls/hr Q24H IV Last administered on 05/29/16at 12:21; Start 05/26/16 at 12:00 ; Stop 05/29/16 at 15:10; Status DC Miscellaneous Information SPECIFIC LAB TO BE DAVID... ONCE ONCE XX ; Start 05/29 at 11:45; Stop 05/29/16 at 11:46; Status DC Cefepime HCl/ Sodium Chloride (Maxipime Inj/NS Inj) 100 ml @ 200 mls/hr Q24H IV Last administered on 05/27/16at 17:36; Start 05/26/16 at 16:00; Stop 05/28 at 09:04; Status DC Fluconazole (Diflucan) 200 mg DAILY PO Last administered on 06/12/16 08:58; Start 05/27/16 at 09:00; Stop 06/12/16 at 13:42; Status DC Warfarin Sodium (Coumadin) 5 mg DAILY@1600 PO Last administered on 05/29/16at 15:45; Start 05/27/16 at 16:00; Stop 05/31/16 at 11:40; Status DC Warfarin Sodium 0.5 mg 0.5 mg DAILY@16 PO Last administered on 05/29/16at 15:45 ; Start 05/27/16 at 16:00; Stop 05/31/16 at 11:37; Status DC Cefepime HCl/ Sodium Chloride (Maxipime Inj/NS Inj) 100 ml @ 200 mls/hr Q12H IV Last administered on 05/29/16at 08:46; Start 05/28/16 at 10:00; Stop 05/29 at 09:20; Status DC Warfarin Sodium (Coumadin) 7.5 mg ONCE ONCE PO Last administered on 17:02; Start 05/28/16 at 16:00; Stop 05/28/16 at 16:01; Status DC Tamsulosin HCl (Flomax) 0.4 mg DAILY PO Last administered on 06/25/16 09:04; Start 05/28/16 at 15:00 Pantoprazole Sodium (Protonix) 40 mg DAILY PO Last administered on 06/25/16 09 :04; Start 05/30/16 at 09:00 Bumetanide 1 mg 1 mg ONCE ONCE IV PUSH Last administered on 05/29/16at 15:45; Start 05/29/16 at 15:00; Stop 05/29/16 at 15:01; Status DC Vancomycin HCl/ Sodium Chloride (Vancomycin Inj/ NS 250 ml Inj) 262.5 ml @ 262.5 mls/ hr Q18H IV Last administered on 05/30/16at 06:07; Start 05/30/16 at 06:00; Stop 05/30/16 at 11:27; Status DC Miscellaneous Information SPECIFIC LAB TO BE DAVID... ONCE ONCE XX ; Start 05/30 at 23:45; Stop 05/30/16 at 23:46; Status Cancel Vancomycin HCl/ Sodium Chloride (Vancomycin Inj/ NS 500 ml Inj) 515 ml @ 250 mls/hr Q18H IV Last administered on 06/01/16at 13:28; Start 05/31/16 at 00:00 ; Stop 06/01/16 at 14:39; Status DC Miscellaneous Information SPECIFIC LAB TO BE DRAWN:VANCOMYCIN TROUGH DATE TO... ONCE ONCE XX Last administered on 06/01/16at 13:27; Start 06/01/16 at 11:45; Stop 06/01/16 at 11:46; Status DC Warfarin Sodium (Coumadin) 4 mg DAILY@16 PO Last administered on 06/02/16at 16: 19; Start 05/31/16 at 16:00; Stop 06/05/16 at 11:08; Status DC Iohexol 100 ml 100 ml STK-MED ONCE IV Last administered on 06/01/16at 13:18; Start 06/01/16 at 13:18; Stop 06/01/16 at 13:19; Status DC Vancomycin HCl/ Sodium Chloride (Vancomycin Inj/ NS 500 ml Inj) 515 ml @ 250 mls/hr Q24H IV Last administered on 06/06/16at 13:52; Start 06/02/16 at 14:00 ; Stop 06/06/16 at 15:00; Status DC Miscellaneous Information SPECIFIC LAB TO BE DRAWN:VANCOMYCIN TROUGH DATE TO... ONCE ONCE XX Last administered on 06/04/16at 13:55; Start 06/04/16 at 13:45; Stop 06/04/16 at 13:46; Status DC Miscellaneous Information SPECIFIC LAB TO BE DAVID... ONCE ONCE XX Last administered on 06/06/16at 13:45; Start 06/06/16 at 13:45; Stop 06/06/16 at 13 :46; Status DC Warfarin Sodium 3 mg 3 mg DAILY@16 PO Last administered on 06/08/16at 15:40; Start 06/05/16 at 16:00; Stop 06/13/16 at 09:27; Status DC Vancomycin HCl/ Sodium Chloride (Vancomycin Inj/ NS 500 ml Inj) 517.5 ml @ 250 mls/hr Q36H IV Last administered on 06/12/16 18:18; Start 06/08/16 at 06:00; Stop 06/12/16 at 19:09; Status DC Miscellaneous Information SPECIFIC LAB TO BE DRAWN:VANCOMYCIN TROUGH DATE TO... ONCE ONCE XX Last administered on 06/12/16 17:45; Start 06/12/16 at 17:45; Stop 06/12/16 at 17:46; Status DC Gadodiamide (Omniscan Pf Inj) 22 ml STK-MED ONCE IV Last administered on at 10:21; Start 06/07/16 at 10:21; Stop 06/07/16 at 10:22; Status DC Phytonadione 5 mg 5 mg ONCE ONCE SQ Last administered on 06/11/16 06:30; Start 06/11/16 at 06:30; Stop 06/11/16 at 06:31; Status DC Sodium Chloride (NS 250 ml Inj) 250 ml @ 15 mls/hr ONCE ONCE IV Last administered on 06/11/16 00:00; Start 06/11/16 at 15:00; Stop 06/12/16 at 07:39; Status DC Acetaminophen (Tylenol) 650 mg Q4H PRN PO SEE LABEL COMMENTS; Start 06/11/16 at 15:00; Stop 06/11/16 at 19:01; Status DC Diphenhydramine HCl (Benadryl) 25 mg Q4H PRN PO SEE LABEL COMMENTS; Start at 15:00; Stop 06/11/16 at 19:01; Status DC Furosemide (Lasix Inj) 20 mg ONCE ONCE IV Last administered on 06/11/16 04:00 ; Start 06/11/16 at 15:00; Stop 06/11/16 at 15:01; Status DC Phytonadione 5 mg 5 mg ONCE ONCE SQ Last administered on 06/12/16 08:56; Start 06/12/16 at 06:50; Stop 06/12/16 at 06:51; Status DC Vancomycin HCl/ Sodium Chloride (Vancomycin Inj/ NS 500 ml Inj) 515 ml @ 250 mls/hr Q24H IV ; Start 06/13/16 at 18:00; Status Cancel Miscellaneous Information SPECIFIC LAB TO BE DRAWN:VANCO TROUGH DATE TO BE DR... ONCE ONCE XX ; Start 06/14/16 at 17:45; Stop 06/14/16 at 17:46; Status Cancel Vancomycin HCl/ Sodium Chloride (Vancomycin Inj/ NS 500 ml Inj) 517.5 ml @ 250 mls/hr Q36H IV Last administered on 06/20/16 06:30; Start 06/14/16 at 06:00; Stop 06/21/16 at 10:06; Status DC Sugammadex Sodium (Bridion Inj) 200 mg STK-MED ONCE IV PUSH ; Start 06/13/16 at 06:53; Stop 06/13/16 at 07:00; Status DC Acetaminophen (Ofirmev Inj) 1,000 mg STK-MED ONCE IV ; Start 06/13/16 at 06:53; Stop 06/13/16 at 07:00; Status DC Vancomycin HCl 1000 mg 1,000 mg STK-MED ONCE .ROUTE Last administered on 07:52; Start 06/13/16 at 07:04; Stop 06/13/16 at 07:17; Status DC Cefazolin Sodium/ Dextrose (Ancef 2 Gm Premix) 50 ml @ As Directed STK-MED ONCE .ROUTE Last administered on 06/13/16 07:53; Start 06/13/16 at 07:04; Stop at 07:17; Status DC Bupivacaine HCl/ Epinephrine Bitart (Marcaine-Epi Pf 0.25% Inj) 30 ml STK-MED ONCE .ROUTE Last administered on 06/13/16 07:51; Start 06/13/16 at 07:04; Stop 06/13/16 at 07:17; Status DC Cefazolin Sodium (Ancef Inj) 1,000 mg STK-MED ONCE .ROUTE Last administered on 06/13/16 07:52; Start 06/13/16 at 07:04; Stop 06/13/16 at 07:17; Status DC Gentamicin Sulfate 240 mg 240 mg STK-MED ONCE .ROUTE ; Start 06/13/16 at 07:05; Stop 06/13/16 at 07:17; Status DC Sodium Chloride (NS 250 ml Inj) 250 ml @ As Directed STK-MED ONCE .ROUTE ; Start 06/13/16 at 07:05; Stop 06/13/16 at 07:17; Status DC Ketamine HCl (Ketalar Inj) 500 mg STK-MED ONCE .ROUTE ; Start 06/13/16 at 07:24; Stop 06/13/16 at 07:35; Status DC IV Flush (NS Flush) 2 ml UNSCH PRN IVF FLUSH AFTER USING IV ACCESS; Start at 09:15 IV Flush (NS Flush) 2 ml BID IVF Last administered on 06/25/16 09:04; Start at 21:00 Acetaminophen/ Hydrocodone Bitart (Sanders 10-325 Mg) 1 tab Q3H PRN PO PAIN LESS THAN 5 ON SCALE Last administered on 06/25/16 09:09; Start 06/13/16 at 09:15 Acetaminophen/ Hydrocodone Bitart (Sanders 10-325 Mg) 2 tab Q6H PRN PO PAIN GREATER THAN/EQUAL TO 5 Last administered on 06/23/16 16:09; Start 06/13/16 at 09:15 Gabapentin (Neurontin) 300 mg TID PO Last administered on 06/25/16 11:48; Start 06/13/16 at 13:00 Morphine Sulfate (Morphine Inj) 4 mg Q3H PRN IV PUSH break thru pain Last administered on 06/21/16 14:10; Start 06/13/16 at 09:15 Warfarin Sodium (Coumadin) 3 mg DAILY@16 PO Last administered on 06/24/16 18: 03; Start 06/14/16 at 16:00 Albuterol Sulfate (*ALBUTEROL NEB PERIprocedure ONLY) 2.5 mg STK-MED ONCE NEB ; Start 06/13/16 at 09:29; Stop 06/13/16 at 09:30; Status DC Midazolam HCl (Versed Inj) 2 mg STK-MED ONCE .ROUTE ; Start 06/13/16 at 09:30; Stop 06/13/16 at 09:31; Status DC Miscellaneous Information ALL NURSING DEPARTME... UNSCH PRN XX SEE LABEL COMMENTS; Start 06/13/16 at 09:20; Stop 06/14/16 at 09:19; Status DC Miscellaneous Information SPECIFIC LAB TO BE DRAWN:VANCO TROUGH DATE TO BE DR... ONCE ONCE XX Last administered on 06/14/16 05:54; Start 06/14/16 at 05:45 ; Stop 06/14/16 at 05:46; Status DC Propofol (Diprivan 200 Mg/20 ml Inj) 200 mg STK-MED ONCE IV ; Start 06/13/16 at 12:00; Stop 06/14/16 at 10:19; Status DC Ondansetron HCl 4 mg 4 mg STK-MED ONCE IV PUSH ; Start 06/13/16 at 12:00; Stop at 10:19; Status DC Lactated Ringer's (Lr 1000 ml Inj) 1,000 ml @ As Directed STK-MED ONCE IV ; Start 06/13/16 at 12:00; Stop 06/14/16 at 10:19; Status DC Ephedrine Sulfate (ePHEDrine/NS 50 MG/5 ML SYR) 50 mg STK-MED ONCE IV ; Start at 12:00; Stop 06/14/16 at 10:19; Status DC Phenylephrine HCl (Neosynephrine/ NS 1000 Mcg/10ml Syr) 1,000 mcg STK-MED ONCE IV ; Start 06/13/16 at 12:00; Stop 06/14/16 at 10:19; Status DC Miscellaneous Information SPECIFIC LAB TO BE DRAWN:VANCOMYCIN TROUGH DATE TO... ONCE ONCE XX Last administered on 06/17/16 05:55; Start 06/17/16 at 05:45; Stop 06/17/16 at 05:46; Status DC Acetaminophen (Ofirmev Inj) 650 mg ONCE ONCE IV Last administered on 06/15/16 01:23; Start 06/15/16 at 01:15; Stop 06/15/16 at 01:16; Status DC Warfarin Sodium 2 mg 2 mg ONCE PO Last administered on 06/15/16 18:10; Start at 16:00; Stop 06/15/16 at 21:00; Status DC Sodium Chloride (NS 1000 ml Inj) 1,000 ml @ 70 mls/hr [id number] IV Last administered on 06/16/16 02:40; Start 06/15/16 at 11:38; Stop 06/16/16 at 09:35; Status DC Aspirin (Aspirin Chew) 162 mg NOW STAT PO Last administered on 06/15/16 12:27 ; Start 06/15/16 at 12:16; Stop 06/15/16 at 12:21; Status DC Atorvastatin Calcium 20 mg 20 mg HS PO Last administered on 06/24/16 20:59; Start 06/15/16 at 21:00 Sodium Chloride 1,000 ml @ 999 mls/hr BOLUS ONCE IV Last administered on 15:14; Start 06/15/16 at 12:30; Stop 06/15/16 at 13:30; Status DC Sodium Chloride 250 ml @ 15 mls/hr ONCE ONCE IV Last administered on 12:33; Start 06/16/16 at 09:30; Stop 06/17/16 at 02:09; Status DC Ceftriaxone Sodium 1000 mg/ Sodium Chloride 100 ml @ 200 mls/hr Q24H IV Last administered on 06/16/16 12:33; Start 06/16/16 at 10:00; Stop 06/16/16 at 17:43; Status DC Piperacillin Sod/ Tazobactam Sod 50 ml @ 100 mls/hr Q6H IV Last administered on 06/22/16 09:16; Start 06/16/16 at 20:00; Stop 06/22/16 at 10:39; Status DC Sodium Chloride (NS 500 ml Inj) 500 ml @ 50 mls/hr Q10H ONCE IV Last administered on 06/18/16 13:34; Start 06/18/16 at 13:15; Stop 06/18/16 at 23:14; Status DC Furosemide (Lasix Inj) 20 mg ONCE ONCE IV PUSH Last administered on 06/20/16 12:54; Start 06/20/16 at 10:45; Stop 06/20/16 at 10:46; Status DC Miscellaneous Information SPECIFIC LAB TO BE DRAWN:VANCOMYCIN TROUGH DATE TO... ONCE ONCE XX ; Start 06/21/16 at 17:45; Stop 06/21/16 at 17:46; Status Cancel Diatrizoate Meglum/ Diatrizoate Sod ( Gastroview Liq) 18 ml ONCE ONCE PO Last administered on 06/22/16 12:15; Start 06/22/16 at 10:51; Stop 06/22/16 at 11:34; Status DC Iohexol (Omnipaque 350 Inj) 95 ml STK-MED ONCE IV Last administered on 17:46; Start 06/22/16 at 17:46; Stop 06/22/16 at 17:47; Status DC Furosemide (Lasix Inj) 20 mg DAILY IV PUSH Last administered on 06/25/16 09:04 ; Start 06/23/16 at 09:00 Potassium Chloride (KCl) 20 meq DAILY PO Last administered on 06/25/16 09:04; Start 06/23/16 at 09:00 Warfarin Sodium (Coumadin) 1 mg ONCE ONCE PO ; Start 06/25/16 at 16:00; Stop at 16:01 A/P Assessment and Plan A/P s/p left AKA - Post surgical management post operative pain rehabilitation as per surgical service - Abx discontinued. Appreciate rehabilitation medicine's recommendations concerning long-term recommendations in rehabilitation and improvement of ADL fluid overload- improved- continue lasix; change to po- neb treatment as needed.CXR today with some improvement. generalized abdominal pain; improved.CT of the abdomen as noted above. Acute kidney injury improved on IV hydration- Previous Sepsis on admission. Resolved. - Initially thought to be secondary to Natalie UTI, however most likely secondary to osteomyelitis. -urinary retention; the patient says that he failed the voiding trial before and wants to continue with cabello at this time. Acute Anemia. Currently asymptomatic -Slow decline. Likely anemia of inflammation - - s/p PRBC transfusion with improved H/H. -GI f/u appreciated; considering colonoscopy. Type 2 diabetes. Overall Control. Continue sliding scale insulin. Atrial fibrillation. Currently heart rate is controlled. Restarted warfarin - PT/INR monitoring. Diabetic neuropathy. Chronic. Continue gabapentin. Tobaccoism. Recommend cessation. Hypertension with low-normal BP's; will hold BP meds for now- UTI. On admission with Natalie glabrata. Status post diflucan. DVT Prophylaxis. Coumadin restarted . Discharge Planning dc to SNF within the next 24-48 hrs if stable- pending GI recommendations on colonoscopy. Ronn Pugh MD Jun 25, 2016 12:58
[2016-06-25] MEDS ORDERED: WARFARIN SOD 1 MG TAB PO ONE (16:00)
[2016-06-25] MEDS: WARFARIN SOD 3 MG TAB PO SCH (16:11)
--- NOTE | 2016-06-25 21:08 | HHI.GIFU ---
Subjective Remarks Comfortable in bed no new complaints denies any melena or hematochezia denies any bleeding Objective Vitals I&O Vital Signs Date Time Temp Pulse Resp B/P Pulse Ox O2 Delivery O2 Flow Rate FiO2 06/25/16 20:00 98.0 81 18 111/55 97 06/25/16 16:29 98.5 80 18 118/58 98 06/25/16 15:35 17 06/25/16 12:12 98.3 76 18 130/69 100 06/25/16 09:03 77 06/25/16 09:03 Nasal Cannula 2.00 06/25/16 08:44 100 Nasal Cannula 2.00 06/25/16 08:00 97.6 76 20 119/62 98 06/25/16 04:00 97.9 74 20 123/64 99 06/25/16 00:00 99.0 83 18 135/63 98 I/O 06/24/16 06/24/16 06/24/16 06/25/16 06/25/16 06/25/16 07:00 15:00 23:00 07:00 15:00 23:00 Intake Total 360 ml 720 ml 360 ml 480 ml 480 ml Output Total 800 ml 2000 ml 200 ml 1100 ml 1550 ml Balance -440 ml -1280 ml 160 ml -620 ml -1070 ml Intake Oral 360 ml 720 ml 360 ml 480 ml 480 ml IV Total 0 ml Output Urine Total 800 ml 2000 ml 200 ml 1100 ml 1550 ml # Bowel Movements 1 0 1 0 Laboratory Laboratory Tests Test 06/25/16 07:11 White Blood Count 7.5 Red Blood Count 3.15 Hemoglobin 9.5 Hematocrit 28.5 Mean Corpuscular Volume 90.7 Mean Corpuscular Hemoglobin 30.3 Mean Corpuscular Hemoglobin 33.4 Concent Red Cell Distribution Width 16.8 Platelet Count 204 Mean Platelet Volume 7.9 Neutrophils (%) (Auto) 70.8 Lymphocytes (%) (Auto) 15.6 Monocytes (%) (Auto) 8.8 Eosinophils (%) (Auto) 3.6 Basophils (%) (Auto) 1.2 Neutrophils # (Auto) 5.3 Lymphocytes # (Auto) 1.2 Monocytes # (Auto) 0.7 Eosinophils # (Auto) 0.3 Basophils # (Auto) 0.1 CBC Comment DIFF FINAL Differential Comment Prothrombin Time 21.7 Prothromb Time International 1.9 Ratio Imaging Last 48 hours Impressions Chest X-Ray 06/25/16 0600 Signed Impressions: Service Date/Time: Saturday, June 25, 2016 04:34 - CONCLUSION: 1. Cardiomegaly and findings of congestive heart failure. The findings are improved when compared with the prior exam. James Leung MD Physical Exam HEENT: Normocephalic; atraumatic; no jaundice. CHEST: CTA. CARDIAC: RRR. ABDOMEN: Soft, nondistended, nontender; no hepatosplenomegaly; bowel sounds are present in all four quadrants. EXTREMITIES: Left AKA SKIN: Normal; no rash; no jaundice. K9 HANDLER: No focal deficits; alert and oriented times three. Assessment and Plan Plan ASSESSMENT: - Chronic Anemia. He is being worked up for possible TIA. He is on Coumadin. EGD on (05/09/16)--->reflux esophagitis, small hiatal hernia, gastritis, bx showed barrettes. He never had a colonoscopy before. No obvious active bleeding. S/P 5 units PRBC. HH 9.3/27.4 He is not having any obvious active GI bleeding and he is not stable for colonoscopy at this time secondary to recent AKA, risk of contamination - TIA. Neurology on the case, work up in progress - Osteomyelitis of left ankle S/P AKA (06/13/16) - Atrial fibrillation. on Coumadin - PVD, DM, CHF, Depression, COPD, HTN per primary PLAN: - SUSAN - CBC in am - Transfuse as needed - No signs of active bleeding. - Would hold on colonoscopy at this time secondary to recent AKA and risk of contamination Raul Link MD Jun 25, 2016 21:08
[2016-06-25] MEDS: ATORVASTATIN 20 MG TAB PO SCH (21:42)
[2016-06-26] VITALS: BP 122/57; PULSE 78; RESP 17; TEMP 97.8; O2SAT 97
[2016-06-26] MEDS: INSULIN ASPART SUPPLEMENTAL SCALE SQ SCH ×3 (00:43→11:43)
[2016-06-26] MEDS: ACETAMINOPHEN/HYDROcodone 325 MG/10 MG TAB PO PRN ×4 (01:05→12:14)
[2016-06-26 04:00] VITALS: BP 113/58; PULSE 77; RESP 17; TEMP 97.5; O2SAT 95
[2016-06-26 07:21] LABS: PROTHROMBIN TIME - PATIENT 23.2 SEC (9.8-11.6)
[2016-06-26 08:00] VITALS: BP 115/62; PULSE 71; RESP 18; TEMP 97.8; O2SAT 92
[2016-06-26 08:01] VITALS: PULSE 72
[2016-06-26] MEDS: PANTOPRAZOLE SOD 40 MG DELAYED RELEASE TAB PO SCH (08:50)
[2016-06-26] MEDS: GABAPENTIN 300 MG CAP PO SCH ×2 (08:50→12:13)
[2016-06-26] MEDS: TAMSULOSIN HCL 0.4 MG CAP PO SCH (08:51)
[2016-06-26] MEDS: SODIUM CHLORIDE 0.9% FLUSH 5 ML FLUSH IVF SCH (08:51)
[2016-06-26] MEDS: POTASSIUM CHLORIDE 20 MEQ CONTROLLED RELEASE TAB PO SCH (08:51)
[2016-06-26] MEDS: COLLAGENASE OINT 30 GM TUBE TOP SCH (08:52)
[2016-06-26] MEDS ORDERED: FUROSEMIDE 20 MG TAB PO SCH (09:00)
--- NOTE | 2016-06-26 10:27 | HHI.PR ---
Subjective Remarks resting comfortably with no distress. denies pain or sob. no fever. Objective Vitals Vital Signs Date Time Temp Pulse Resp B/P Pulse Ox O2 Delivery O2 Flow Rate FiO2 06/26/16 08:55 Nasal Cannula 2.00 06/26/16 08:01 72 06/26/16 08:00 97.8 71 18 115/62 92 06/26/16 04:00 97.5 77 17 113/58 95 06/26/16 00:00 97.8 78 17 122/57 97 06/25/16 20:00 71 06/25/16 20:00 98.0 81 18 111/55 97 06/25/16 19:00 Nasal Cannula 2.00 06/25/16 16:29 98.5 80 18 118/58 98 06/25/16 15:35 17 06/25/16 12:12 98.3 76 18 130/69 100 I/O 06/25/16 06/25/16 06/25/16 06/26/16 06/26/16 06/26/16 07:00 15:00 23:00 07:00 15:00 23:00 Intake Total 480 ml 480 ml 480 ml 120 ml Output Total 1100 ml 1550 ml 550 ml 600 ml Balance -620 ml -1070 ml -70 ml -480 ml Intake Oral 480 ml 480 ml 480 ml 120 ml IV Total 0 ml Output Urine Total 1100 ml 1550 ml 550 ml 600 ml # Bowel Movements 1 0 0 0 Result Diagram: 06/25/16 0711 06/24/16 0746 Imaging Last Impressions Chest X-Ray 06/25/16 0600 Signed Impressions: Service Date/Time: Saturday, June 25, 2016 04:34 - CONCLUSION: 1. Cardiomegaly and findings of congestive heart failure. The findings are improved when compared with the prior exam. James Leung MD Abdomen/Pelvis CT 06/22/16 0000 Signed Impressions: Service Date/Time: June 17:23 - CONCLUSION: 1. Uncomplicated colonic diverticulosis. 2. Small bilateral pleural effusions with adjacent compressive atelectasis. 3. Scattered tiny calcified nonobstructing bilateral renal calculi. 4. Degenerative changes and scoliosis of the lumbar spine. Raúl Fregoso MD Abdomen Ultrasound 06/21/16 0000 Signed Impressions: Service Date/Time: Tuesday, June 21, 2016 10:33 - CONCLUSION: There is no significant ascites. Nahid Cazares MD FACR Brain MRI 06/15/16 1143 Signed Impressions: Service Date/Time: June 12:49 - CONCLUSION: 1. Cerebral atrophy and extensive chronic ischemic small vessel vasculopathy. 2. No acute infarction. Subhash Arteaga MD Carotid Artery Ultrasound 06/15/16 0000 Signed Impressions: Service Date/Time: June 18:56 - CONCLUSION: 1. Bilateral carotid bifurcation atherosclerosis, moderate on the right and mild on the left. No hemodynamically significant narrowing on either side. 2. Limited study and the vertebral arteries are not well-visualized today. They had antegrade flow within them on the prior ultrasound. Bret Truong MD Foot MRI 06/07/16 0000 Signed Impressions: Service Date/Time: Tuesday, June 07, 2016 09:34 - CONCLUSION: 1. Deep soft tissue ulcer of the midfoot and with associated osteomyelitis of the plantar/lateral aspect of the fourth metatarsal base and mid to distal cuboid. Please see above. Fifth metatarsal previously resected. 2. Second toe amputation since the prior MRI. Indurated soft tissues and focal cortical destruction seen of the second metatarsal head remnant. No deep osteomyelitis of the second metatarsal. 3. No soft tissue abscesses are demonstrated. 4. Apparent cellulitis of the heel pad. No calcaneal osteomyelitis demonstrated. Bret Truong MD Ankle MRI 06/07/16 0000 Signed Impressions: Service Date/Time: Tuesday, June 07, 2016 09:34 - CONCLUSION: 1. No evidence of osteomyelitis. 2. Old healed fracture of the distal fibula. 3. Subcutaneous nonspecific edema. Juan Bonilla MD Upper Extremity Ultrasound 06/05/16 0000 Signed Impressions: Service Date/Time: Sunday, June 05, 2016 20:02 - CONCLUSION: Normal examination. Don Izaguirre MD Aorta w/Runoff CTA 06/01/16 0000 Signed Impressions: Service Date/Time: May 12:13 - CONCLUSION: 1. Heavily diseased but adequate in flow down to the level of the groin bilaterally. 2. 3. Right le. Diffusely diseased superficial femoral artery with multiple areas of moderate and scattered areas of high grade stenosis. The popliteal is diseased but adequate in caliber. Distally, there is single vessel runoff into the foot via the anterior tibial. 5. 6. Left le. Heavily diseased superficial femoral with scattered areas of moderate and high grade stenosis. The popliteal is heavily diseased as well. Distally, there is occlusion of the origin of all 3 trifurcation vessels. Eventually, there is reconstitution of the anterior tibial and posterior tibial. Aric Cazares MD Head CT 05/24/16 1217 Signed Impressions: Service Date/Time: Tuesday, May 24, 2016 12:55 - CONCLUSION: 1. No acute intracranial abnormality. 2. Atrophy. 3. Chronic small vessel ischemic change. Juvenal Jarquin Jr., MD Objective Remarks GENERAL: This is a well-nourished, well-developed patient, in no apparent distress. CARDIOVASCULAR: Regular rate and regular rhythm without murmurs, gallops, or rubs. RESPIRATORY: Clear to auscultation. Breath sounds equal bilaterally. No wheezes , rales, or rhonchi. GASTROINTESTINAL: Abdomen soft, non-tender, distended. Normal, active bowel sounds MUSCULOSKELETAL: s/p left AKA NEURO: Alert & Oriented x4 to person, place, time, situation. Moves all ext x4 Procedures left AKA Medications and IVs Current Medications IV Flush 2 ml 2 ml UNSCH PRN IVF FLUSH AFTER USING IV ACCESS; Start 05/24/16 at 12:30; Stop 05/24/16 at 15:31; Status DC Sodium Chloride 1,000 ml @ 1,000 mls/hr Q1H IV Last administered on at 13:23; Start 05/24/16 at 12:17; Stop 05/24/16 at 13:16; Status DC Piperacillin Sod/ Tazobactam Sod 100 ml @ 200 mls/hr ONCE ONCE IV Last administered on 05/24/16at 13:23; Start 05/24/16 at 12:30; Stop 05/24/16 at 12 :59; Status DC Vancomycin HCl/ Sodium Chloride (Vancomycin Inj/ NS 250 ml Inj) 250 ml @ 250 mls/hr ONCE ONCE IV Last administered on 05/24/16at 14:47; Start 05/24/16 at 12:30; Stop 12/14/16 at 13:29; Status DC Calcium Gluconate (Calcium Gluconate Inj) 1 gm ONCE ONCE SLOW IVP Last administered on 05/24/16at 14:40; Start 05/24/16 at 13:45; Stop 05/24/16 at 13 :46; Status DC Insulin Human Regular (NovoLIN R INJ) 10 units ONCE ONCE IV PUSH Last administered on 05/24/16at 14:39; Start 05/24/16 at 14:00; Stop 05/24/16 at 14 :01; Status DC Dextrose (D50w (Vial) Inj) 50 ml ONCE ONCE IV PUSH Last administered on at 14:39; Start 05/24/16 at 13:45; Stop 05/24/16 at 13:46; Status DC Sodium Bicarbonate (Sodium Bicarbonate 8.4% Inj) 50 meq ONCE ONCE SLOW IVP Last administered on 05/24/16at 14:23; Start 05/24/16 at 13:45; Stop 05/24/16 at 13:46; Status DC Albuterol Sulfate (Albuterol Concentrated Neb) 10 mg ONCE ONCE INH Last administered on 05/24/16at 14:58; Start 05/24/16 at 13:45; Stop 05/24/16 at 13 :46; Status DC Sodium Polystyrene Sulfonate 15 gm 15 gm ONCE ONCE PO Last administered on at 14:18; Start 05/24/16 at 13:45; Stop 05/24/16 at 13:46; Status DC Sodium Chloride 1,000 ml @ 999 mls/hr BOLUS ONCE IV Last administered on at 14:40; Start 05/24/16 at 14:00; Stop 05/24/16 at 15:00; Status DC Sodium Chloride (NS 1000 ml Inj) 1,000 ml @ 150 mls/hr Q6H40M IV Last administered on 05/29/16at 02:20; Start 05/24/16 at 14:33; Stop 05/29/16 at 14 :38; Status DC IV Flush (NS Flush) 2 ml UNSCH PRN IV FLUSH FLUSH AFTER USING IV ACCESS; Start 05/24/16 at 14:45; Stop 06/13/16 at 09:19; Status DC IV Flush (NS Flush) 2 ml BID IV FLUSH Last administered on 1/2/17at 23:09; Start 05/24/16 at 21:00; Stop 06/13/16 at 09:19; Status DC Pantoprazole Sodium (Protonix Inj) 40 mg DAILY IV Last administered on at 08:47; Start 05/24/16 at 15:30; Stop 05/29/16 at 14:39; Status DC Albuterol/ Ipratropium (Duoneb Neb) 1 ampule Q2HR NEB PRN INH WHEEZING; Start 05/24/16 at 14:45 Miscellaneous Information 1 Q361D XX Last administered on 05/24/16at 17:09; Start 05/24/16 at 14:45 Chlorhexidine Gluconate (Chlorhexidine 2% Cloth) 3 pack Taper DAILY@04 TOP Last administered on 05/25/16at 04:00; Start 05/25/16 at 04:00; Stop 05/29/16 at 14:38; Status DC Chlorhexidine Gluconate 3 pack 3 pack UNSCH PRN TOP HYGIENIC CARE; Start 05/24 at 14:45; Stop 05/29/16 at 14:38; Status DC Cefepime HCl 500 mg/Sodium Chloride 100 ml @ 200 mls/hr Q24H IV Last administered on 05/25/16at 16:29; Start 05/24/16 at 16:00; Stop 05/26/16 at 12 :54; Status DC Pharmacy Profile Note (Coumadin Consult Pharmacy) 0 ml @ 0 mls/hr UNSCH OTHER ; Start 05/24/16 at 14:45 Insulin Aspart 1 1 Q6HR SQ Last administered on 06/26/16 00:43; Start at 15:30 Piperacillin Sod/ Tazobactam Sod 50 ml @ 100 mls/hr Q8H IV Last administered on 05/25/16at 05:24; Start 05/24/16 at 21:00; Stop 05/25/16 at 10:27; Status DC Pharmacy Profile Note (Vancomycin Consult Pharmacy) 0 ml @ 0 mls/hr UNSCH OTHER ; Start 05/24/16 at 16:15; Status Cancel Collagenase (Santyl Oint) 1 applic DAILY TOP Last administered on 06/26/16 08: 52; Start 05/25/16 at 09:00 Miscellaneous Information SPECIFIC LAB TO BE DRAWN:VANCOMYCIN RANDOM DATE TO... ONCE ONCE XX ; Start 05/25/16 at 14:00; Stop 05/25/16 at 14:00; Status DC Acetaminophen/ Hydrocodone Bitart 1 tab 1 tab Q6H PRN PO PAIN Last administered on 06/12/16t 23:34; Start 05/24/16 at 23:45; Stop 06/13/16 at 09:21 ; Status DC Norepinephrine Bitartrate 250 ml @ 0 mls/hr TITRATE IV Last administered on at 01:07; Start 05/25/16 at 00:30; Stop 05/25/16 at 07:07; Status DC Piperacillin Sod/ Tazobactam Sod 50 ml @ 100 mls/hr Q8H IV Last administered on 05/29/16at 20:39; Start 05/25/16 at 13:00; Stop 05/29/16 at 23:06; Status DC Vancomycin HCl/ Sodium Chloride (Vancomycin Inj/ NS 250 ml Inj) 250 ml @ 250 mls/hr ONCE ONCE IV Last administered on 05/25/16at 11:49; Start 05/25/16 at 12:00; Stop 05/25/16 at 12:59; Status DC Miscellaneous Information SPECIFIC LAB TO BE DRAWN:RANDOM LEVEL DATE TO BE DRNoam.. ONCE ONCE XX Last administered on 05/26/16at 05:19; Start 05/26/16 at 06:00; Stop 05/26/16 at 06:01; Status DC Sodium Chloride (NS 250 ml Inj) 250 ml @ 15 mls/hr ONCE ONCE IV Last administered on 05/26/16at 09:40; Start 05/26/16 at 06:00; Stop 05/26/16 at 22 :39; Status DC Furosemide 20 mg 20 mg ONCE ONCE IV Last administered on 05/26/16at 12:37; Start 05/26/16 at 06:00; Stop 05/26/16 at 06:01; Status DC Vancomycin HCl/ Sodium Chloride (Vancomycin Inj/ NS 250 ml Inj) 262.5 ml @ 250 mls/hr Q24H IV Last administered on 05/29/16at 12:21; Start 05/26/16 at 12:00 ; Stop 05/29/16 at 15:10; Status DC Miscellaneous Information SPECIFIC LAB TO BE DAVID... ONCE ONCE XX ; Start 05/29 at 11:45; Stop 05/29/16 at 11:46; Status DC Cefepime HCl/ Sodium Chloride (Maxipime Inj/NS Inj) 100 ml @ 200 mls/hr Q24H IV Last administered on 05/27/16at 17:36; Start 05/26/16 at 16:00; Stop 05/28 at 09:04; Status DC Fluconazole (Diflucan) 200 mg DAILY PO Last administered on 06/12/16 08:58; Start 05/27/16 at 09:00; Stop 06/12/16 at 13:42; Status DC Warfarin Sodium (Coumadin) 5 mg DAILY@1600 PO Last administered on 05/29/16at 15:45; Start 05/27/16 at 16:00; Stop 05/31/16 at 11:40; Status DC Warfarin Sodium 0.5 mg 0.5 mg DAILY@16 PO Last administered on 05/29/16at 15:45 ; Start 05/27/16 at 16:00; Stop 05/31/16 at 11:37; Status DC Cefepime HCl/ Sodium Chloride (Maxipime Inj/NS Inj) 100 ml @ 200 mls/hr Q12H IV Last administered on 05/29/16at 08:46; Start 05/28/16 at 10:00; Stop 05/29 at 09:20; Status DC Warfarin Sodium (Coumadin) 7.5 mg ONCE ONCE PO Last administered on at 17:02; Start 05/28/16 at 16:00; Stop 05/28/16 at 16:01; Status DC Tamsulosin HCl (Flomax) 0.4 mg DAILY PO Last administered on 06/26/16 08:51; Start 05/28/16 at 15:00 Pantoprazole Sodium (Protonix) 40 mg DAILY PO Last administered on 06/26/16 08 :50; Start 05/30/16 at 09:00 Bumetanide 1 mg 1 mg ONCE ONCE IV PUSH Last administered on 05/29/16at 15:45; Start 05/29/16 at 15:00; Stop 05/29/16 at 15:01; Status DC Vancomycin HCl/ Sodium Chloride (Vancomycin Inj/ NS 250 ml Inj) 262.5 ml @ 262.5 mls/ hr Q18H IV Last administered on 05/30/16at 06:07; Start 05/30/16 at 06:00; Stop 05/30/16 at 11:27; Status DC Miscellaneous Information SPECIFIC LAB TO BE DAVID... ONCE ONCE XX ; Start 05/30 at 23:45; Stop 05/30/16 at 23:46; Status Cancel Vancomycin HCl/ Sodium Chloride (Vancomycin Inj/ NS 500 ml Inj) 515 ml @ 250 mls/hr Q18H IV Last administered on 06/01/16at 13:28; Start 05/31/16 at 00:00 ; Stop 06/01/16 at 14:39; Status DC Miscellaneous Information SPECIFIC LAB TO BE DRAWN:VANCOMYCIN TROUGH DATE TO... ONCE ONCE XX Last administered on 06/01/16at 13:27; Start 06/01/16 at 11:45; Stop 06/01/16 at 11:46; Status DC Warfarin Sodium (Coumadin) 4 mg DAILY@16 PO Last administered on 06/02/16at 16: 19; Start 05/31/16 at 16:00; Stop 06/05/16 at 11:08; Status DC Iohexol 100 ml 100 ml STK-MED ONCE IV Last administered on 06/01/16at 13:18; Start 06/01/16 at 13:18; Stop 06/01/16 at 13:19; Status DC Vancomycin HCl/ Sodium Chloride (Vancomycin Inj/ NS 500 ml Inj) 515 ml @ 250 mls/hr Q24H IV Last administered on 06/06/16at 13:52; Start 06/02/16 at 14:00 ; Stop 06/06/16 at 15:00; Status DC Miscellaneous Information SPECIFIC LAB TO BE DRAWN:VANCOMYCIN TROUGH DATE TO... ONCE ONCE XX Last administered on 06/04/16at 13:55; Start 06/04/16 at 13:45; Stop 06/04/16 at 13:46; Status DC Miscellaneous Information SPECIFIC LAB TO BE DAVID... ONCE ONCE XX Last administered on 06/06/16at 13:45; Start 06/06/16 at 13:45; Stop 06/06/16 at 13 :46; Status DC Warfarin Sodium 3 mg 3 mg DAILY@16 PO Last administered on 12/29/16at 15:40; Start 06/05/16 at 16:00; Stop 06/13/16 at 09:27; Status DC Vancomycin HCl/ Sodium Chloride (Vancomycin Inj/ NS 500 ml Inj) 517.5 ml @ 250 mls/hr Q36H IV Last administered on 06/12/16 18:18; Start 06/08/16 at 06:00; Stop 06/12/16 at 19:09; Status DC Miscellaneous Information SPECIFIC LAB TO BE DRAWN:VANCOMYCIN TROUGH DATE TO... ONCE ONCE XX Last administered on 06/12/16 17:45; Start 06/12/16 at 17:45; Stop 06/12/16 at 17:46; Status DC Gadodiamide (Omniscan Pf Inj) 22 ml STK-MED ONCE IV Last administered on at 10:21; Start 06/07/16 at 10:21; Stop 06/07/16 at 10:22; Status DC Phytonadione 5 mg 5 mg ONCE ONCE SQ Last administered on 06/11/16 06:30; Start 06/11/16 at 06:30; Stop 06/11/16 at 06:31; Status DC Sodium Chloride (NS 250 ml Inj) 250 ml @ 15 mls/hr ONCE ONCE IV Last administered on 06/11/16 00:00; Start 06/11/16 at 15:00; Stop 06/12/16 at 07:39; Status DC Acetaminophen (Tylenol) 650 mg Q4H PRN PO SEE LABEL COMMENTS; Start 06/11/16 at 15:00; Stop 06/11/16 at 19:01; Status DC Diphenhydramine HCl (Benadryl) 25 mg Q4H PRN PO SEE LABEL COMMENTS; Start at 15:00; Stop 06/11/16 at 19:01; Status DC Furosemide (Lasix Inj) 20 mg ONCE ONCE IV Last administered on 06/11/16 04:00 ; Start 06/11/16 at 15:00; Stop 06/11/16 at 15:01; Status DC Phytonadione 5 mg 5 mg ONCE ONCE SQ Last administered on 06/12/16 08:56; Start 06/12/16 at 06:50; Stop 06/12/16 at 06:51; Status DC Vancomycin HCl/ Sodium Chloride (Vancomycin Inj/ NS 500 ml Inj) 515 ml @ 250 mls/hr Q24H IV ; Start 06/13/16 at 18:00; Status Cancel Miscellaneous Information SPECIFIC LAB TO BE DRAWN:VANCO TROUGH DATE TO BE DR... ONCE ONCE XX ; Start 06/14/16 at 17:45; Stop 06/14/16 at 17:46; Status Cancel Vancomycin HCl/ Sodium Chloride (Vancomycin Inj/ NS 500 ml Inj) 517.5 ml @ 250 mls/hr Q36H IV Last administered on 06/20/16 06:30; Start 06/14/16 at 06:00; Stop 06/21/16 at 10:06; Status DC Sugammadex Sodium (Bridion Inj) 200 mg STK-MED ONCE IV PUSH ; Start 06/13/16 at 06:53; Stop 06/13/16 at 07:00; Status DC Acetaminophen (Ofirmev Inj) 1,000 mg STK-MED ONCE IV ; Start 06/13/16 at 06:53; Stop 06/13/16 at 07:00; Status DC Vancomycin HCl 1000 mg 1,000 mg STK-MED ONCE .ROUTE Last administered on 07:52; Start 06/13/16 at 07:04; Stop 06/13/16 at 07:17; Status DC Cefazolin Sodium/ Dextrose (Ancef 2 Gm Premix) 50 ml @ As Directed STK-MED ONCE .ROUTE Last administered on 06/13/16 07:53; Start 06/13/16 at 07:04; Stop at 07:17; Status DC Bupivacaine HCl/ Epinephrine Bitart (Marcaine-Epi Pf 0.25% Inj) 30 ml STK-MED ONCE .ROUTE Last administered on 06/13/16 07:51; Start 06/13/16 at 07:04; Stop 06/13/16 at 07:17; Status DC Cefazolin Sodium (Ancef Inj) 1,000 mg STK-MED ONCE .ROUTE Last administered on 06/13/16 07:52; Start 06/13/16 at 07:04; Stop 06/13/16 at 07:17; Status DC Gentamicin Sulfate 240 mg 240 mg STK-MED ONCE .ROUTE ; Start 06/13/16 at 07:05; Stop 06/13/16 at 07:17; Status DC Sodium Chloride (NS 250 ml Inj) 250 ml @ As Directed STK-MED ONCE .ROUTE ; Start 06/13/16 at 07:05; Stop 06/13/16 at 07:17; Status DC Ketamine HCl (Ketalar Inj) 500 mg STK-MED ONCE .ROUTE ; Start 06/13/16 at 07:24; Stop 06/13/16 at 07:35; Status DC IV Flush (NS Flush) 2 ml UNSCH PRN IVF FLUSH AFTER USING IV ACCESS; Start at 09:15 IV Flush (NS Flush) 2 ml BID IVF Last administered on 06/26/16 08:51; Start at 21:00 Acetaminophen/ Hydrocodone Bitart (Tad 10-325 Mg) 1 tab Q3H PRN PO PAIN LESS THAN 5 ON SCALE Last administered on 06/26/16 08:50; Start 06/13/16 at 09:15 Acetaminophen/ Hydrocodone Bitart (Tad 10-325 Mg) 2 tab Q6H PRN PO PAIN GREATER THAN/EQUAL TO 5 Last administered on 06/23/16 16:09; Start 06/13/16 at 09:15 Gabapentin (Neurontin) 300 mg TID PO Last administered on 06/26/16 08:50; Start 06/13/16 at 13:00 Morphine Sulfate (Morphine Inj) 4 mg Q3H PRN IV PUSH break thru pain Last administered on 06/21/16 14:10; Start 06/13/16 at 09:15 Warfarin Sodium (Coumadin) 3 mg DAILY@16 PO Last administered on 06/25/16 16: 11; Start 06/14/16 at 16:00 Albuterol Sulfate (*ALBUTEROL NEB PERIprocedure ONLY) 2.5 mg STK-MED ONCE NEB ; Start 06/13/16 at 09:29; Stop 06/13/16 at 09:30; Status DC Midazolam HCl (Versed Inj) 2 mg STK-MED ONCE .ROUTE ; Start 06/13/16 at 09:30; Stop 06/13/16 at 09:31; Status DC Miscellaneous Information ALL NURSING DEPARTME... UNSCH PRN XX SEE LABEL COMMENTS; Start 06/13/16 at 09:20; Stop 06/14/16 at 09:19; Status DC Miscellaneous Information SPECIFIC LAB TO BE DRAWN:VANCO TROUGH DATE TO BE DR... ONCE ONCE XX Last administered on 06/14/16 05:54; Start 06/14/16 at 05:45 ; Stop 06/14/16 at 05:46; Status DC Propofol (Diprivan 200 Mg/20 ml Inj) 200 mg STK-MED ONCE IV ; Start 06/13/16 at 12:00; Stop 06/14/16 at 10:19; Status DC Ondansetron HCl 4 mg 4 mg STK-MED ONCE IV PUSH ; Start 06/13/16 at 12:00; Stop at 10:19; Status DC Lactated Ringer's (Lr 1000 ml Inj) 1,000 ml @ As Directed STK-MED ONCE IV ; Start 06/13/16 at 12:00; Stop 06/14/16 at 10:19; Status DC Ephedrine Sulfate (ePHEDrine/NS 50 MG/5 ML SYR) 50 mg STK-MED ONCE IV ; Start at 12:00; Stop 06/14/16 at 10:19; Status DC Phenylephrine HCl (Neosynephrine/ NS 1000 Mcg/10ml Syr) 1,000 mcg STK-MED ONCE IV ; Start 06/13/16 at 12:00; Stop 06/14/16 at 10:19; Status DC Miscellaneous Information SPECIFIC LAB TO BE DRAWN:VANCOMYCIN TROUGH DATE TO... ONCE ONCE XX Last administered on 06/17/16 05:55; Start 06/17/16 at 05:45; Stop 06/17/16 at 05:46; Status DC Acetaminophen (Ofirmev Inj) 650 mg ONCE ONCE IV Last administered on 06/15/16 01:23; Start 06/15/16 at 01:15; Stop 06/15/16 at 01:16; Status DC Warfarin Sodium 2 mg 2 mg ONCE PO Last administered on 06/15/16 18:10; Start at 16:00; Stop 06/15/16 at 21:00; Status DC Sodium Chloride (NS 1000 ml Inj) 1,000 ml @ 70 mls/hr S32H48H IV Last administered on 06/16/16 02:40; Start 06/15/16 at 11:38; Stop 06/16/16 at 09:35; Status DC Aspirin (Aspirin Chew) 162 mg NOW STAT PO Last administered on 06/15/16 12:27 ; Start 06/15/16 at 12:16; Stop 06/15/16 at 12:21; Status DC Atorvastatin Calcium 20 mg 20 mg HS PO Last administered on 06/25/16 21:42; Start 06/15/16 at 21:00 Sodium Chloride 1,000 ml @ 999 mls/hr BOLUS ONCE IV Last administered on 15:14; Start 06/15/16 at 12:30; Stop 06/15/16 at 13:30; Status DC Sodium Chloride 250 ml @ 15 mls/hr ONCE ONCE IV Last administered on 12:33; Start 06/16/16 at 09:30; Stop 06/17/16 at 02:09; Status DC Ceftriaxone Sodium 1000 mg/ Sodium Chloride 100 ml @ 200 mls/hr Q24H IV Last administered on 06/16/16 12:33; Start 06/16/16 at 10:00; Stop 06/16/16 at 17:43; Status DC Piperacillin Sod/ Tazobactam Sod 50 ml @ 100 mls/hr Q6H IV Last administered on 06/22/16 09:16; Start 06/16/16 at 20:00; Stop 06/22/16 at 10:39; Status DC Sodium Chloride (NS 500 ml Inj) 500 ml @ 50 mls/hr Q10H ONCE IV Last administered on 06/18/16 13:34; Start 06/18/16 at 13:15; Stop 06/18/16 at 23:14; Status DC Furosemide (Lasix Inj) 20 mg ONCE ONCE IV PUSH Last administered on 06/20/16 12:54; Start 06/20/16 at 10:45; Stop 06/20/16 at 10:46; Status DC Miscellaneous Information SPECIFIC LAB TO BE DRAWN:VANCOMYCIN TROUGH DATE TO... ONCE ONCE XX ; Start 06/21/16 at 17:45; Stop 06/21/16 at 17:46; Status Cancel Diatrizoate Meglum/ Diatrizoate Sod ( Gastroview Liq) 18 ml ONCE ONCE PO Last administered on 1/12/17at 12:15; Start 06/22/16 at 10:51; Stop 06/22/16 at 11:34; Status DC Iohexol (Omnipaque 350 Inj) 95 ml STK-MED ONCE IV Last administered on 17:46; Start 06/22/16 at 17:46; Stop 06/22/16 at 17:47; Status DC Furosemide (Lasix Inj) 20 mg DAILY IV PUSH Last administered on 06/25/16 09:04 ; Start 06/23/16 at 09:00; Stop 06/25/16 at 13:00; Status DC Potassium Chloride (KCl) 20 meq DAILY PO Last administered on 06/26/16 08:51; Start 06/23/16 at 09:00 Warfarin Sodium (Coumadin) 1 mg ONCE ONCE PO Last administered on 06/25/16 16 :11; Start 06/25/16 at 16:00; Stop 06/25/16 at 16:01; Status DC Furosemide (Lasix) 20 mg DAILY PO Last administered on 06/26/16 08:51; Start 06/26/16 at 09:00 A/P Assessment and Plan A/P s/p left AKA -continue pain control. - Abx discontinued. Appreciate rehabilitation medicine's recommendations concerning long-term recommendations in rehabilitation and improvement of ADL fluid overload- improved- continue diuretic-neb treatment as needed. generalized abdominal pain; improved.CT of the abdomen as noted above. Acute kidney injury improved on IV hydration- Previous Sepsis on admission. Resolved. - Initially thought to be secondary to Natalie UTI, however most likely secondary to osteomyelitis. -Abx discontinued per ID. -urinary retention; the patient says that he failed the voiding trial before and wants to continue with cabello at this time.voiding trial in a few days as outpatient. Acute Anemia. Currently asymptomatic -Slow decline. Likely anemia of inflammation - - s/p PRBC transfusion with improved H/H. -GI f/u appreciated; f/u with colonoscopy as outpatient. Type 2 diabetes. Overall Control. Continue sliding scale insulin. Atrial fibrillation. Currently heart rate is controlled. Restarted warfarin and coreg. PT/INR monitoring. Diabetic neuropathy. Chronic. Continue gabapentin. Tobaccoism. Recommend cessation. Hypertension-resume coreg- will resume CLAY-I as outpatient if BP stable. UTI. On admission with Natalie glabrata. Status post diflucan. DVT Prophylaxis. Coumadin restarted . Discharge Planning dc to SNF today. f/u; pcp, ortho and GI. see med list. d/w the patient. d/w the RN. d/w GI. time spent 35 min. Ronn Pugh MD Jun 26, 2016 10:27
[2016-06-26] MEDS ORDERED: FURO20TA PO (10:32)
[2016-06-26] MEDS ORDERED: POTA-163 PO (10:32)
--- NOTE | 2016-06-26 10:35 | HHI.DS ---
Discharge Summary Admission Date May 24, 2016 at 14:29 Discharge Date: Jun 26, 2016 Admitting Diagnosis AMS, acute renal failure, sepsis, hyperkalemia (1) Severe sepsis ICD Code: A41.9 Diagnosis: Principal (2) Acute metabolic encephalopathy ICD Code: G93.41 Diagnosis: Principal (3) Hyperkalemia ICD Code: E87.5 Diagnosis: Principal (4) Dehydration ICD Code: E86.0 Diagnosis: Principal (5) Acute renal failure ICD Code: N17.9 Diagnosis: Principal (6) UTI (urinary tract infection) ICD Code: N39.0 Diagnosis: Principal (7) Leukocytosis ICD Code: D72.829 Diagnosis: Principal (8) CAD (coronary artery disease) ICD Code: I25.10 Diagnosis: Secondary (9) PAD (peripheral artery disease) ICD Code: I73.9 Diagnosis: Secondary (10) Afib ICD Code: I48.91 Diagnosis: Secondary (11) CHF (congestive heart failure) ICD Code: I50.9 Diagnosis: Secondary (12) Diabetic foot ulcers ICD Code: E11.621 Diagnosis: Secondary Procedures left AKA Brief History - From Admission This is a 65-year-old male with past medical history significant for type 2 diabetes, diabetic neuropathy, COPD, hypertension, Depression, A. fib on Coumadin, CHF (Echo 03/26 EF 50-55%), recurrent UTI, chronically wheelchair- bound who was brought to the emergency department from [facility]. He went to see vascular surgeon today for severe peripheral arterial disease. When Dr. Billings, vascular surgeon saw the patient he was poorly responsive systolic blood pressure was in the 60s. Patient was sent over to the emergency department where he was responsive but lethargic. At baseline he is awake and talking. His blood glucose was 115. CT of the head and a chest x-ray did not show any acute findings. Patient had a white count of 13.1 with 80% neutrophils. Also his sodium was 127 and a potassium of 6.1 with BUN 100 and creatinine 4.2. Patient has baseline chronic kidney disease with creatinine varying from 1.2-2.8. Patient received vancomycin and Zosyn in the ED empirically as source of infection was not known. After Cabello was placed it was noted that urine is quite cloudy and possible source of sepsis was UTI I evaluated the patient in the ED. After receiving 2 L of crystalloids patient' s mentation is better even though still slightly lethargic. Patient has bilateral diabetic lower extremity ulcers. He has a necrotic appearing large ulceration on the lateral left foot. Also posterior ankle of right lower extremity has a large ulcer with sloughing and evidence of infection, muscle tendons are visible. Wound on right lateral ankle appears to be healing. Urine and sputum cultures have been ordered. I will continue vancomycin and Zosyn CBC/BMP: 06/25/16 0711 06/24/16 0746 Significant Findings Laboratory Tests Test 06/24/16 06/25/16 06/26/16 07:46 07:11 06:08 Prothrombin Time 25.2 SEC 21.7 SEC 23.2 SEC (9.8-11.6) (9.8-11.6) (9.8-11.6) Blood Urea Nitrogen 19 MG/DL (7-18) Creatinine 1.61 MG/DL (0.60-1.30) Estimat Glomerular Filtration 43 ML/MIN (>89) Rate Random Glucose 112 MG/DL (74-106) Calcium Level 8.4 MG/DL (8.5-10.1) Red Blood Count 3.15 MIL/MM3 (4.50-5.90) Hemoglobin 9.5 GM/DL (13.0-17.0) Hematocrit 28.5 % (39.0-51.0) Neutrophils (%) (Auto) 70.8 % (16.0-70.0) Monocytes (%) (Auto) 8.8 % (0.0-8.0) Imaging Last Impressions Chest X-Ray 06/25/16 0600 Signed Impressions: Service Date/Time: Saturday, June 25, 2016 04:34 - CONCLUSION: 1. Cardiomegaly and findings of congestive heart failure. The findings are improved when compared with the prior exam. James Leung MD Abdomen/Pelvis CT 06/22/16 0000 Signed Impressions: Service Date/Time: June 17:23 - CONCLUSION: 1. Uncomplicated colonic diverticulosis. 2. Small bilateral pleural effusions with adjacent compressive atelectasis. 3. Scattered tiny calcified nonobstructing bilateral renal calculi. 4. Degenerative changes and scoliosis of the lumbar spine. Raúl Fregoso MD Abdomen Ultrasound 06/21/16 0000 Signed Impressions: Service Date/Time: Tuesday, June 21, 2016 10:33 - CONCLUSION: There is no significant ascites. Nahid Cazares MD FACR Brain MRI 06/15/16 1143 Signed Impressions: Service Date/Time: June 12:49 - CONCLUSION: 1. Cerebral atrophy and extensive chronic ischemic small vessel vasculopathy. 2. No acute infarction. Subhash Arteaga MD Carotid Artery Ultrasound 06/15/16 0000 Signed Impressions: Service Date/Time: June 18:56 - CONCLUSION: 1. Bilateral carotid bifurcation atherosclerosis, moderate on the right and mild on the left. No hemodynamically significant narrowing on either side. 2. Limited study and the vertebral arteries are not well-visualized today. They had antegrade flow within them on the prior ultrasound. Bret Truong MD Foot MRI 06/07/16 0000 Signed Impressions: Service Date/Time: Tuesday, June 07, 2016 09:34 - CONCLUSION: 1. Deep soft tissue ulcer of the midfoot and with associated osteomyelitis of the plantar/lateral aspect of the fourth metatarsal base and mid to distal cuboid. Please see above. Fifth metatarsal previously resected. 2. Second toe amputation since the prior MRI. Indurated soft tissues and focal cortical destruction seen of the second metatarsal head remnant. No deep osteomyelitis of the second metatarsal. 3. No soft tissue abscesses are demonstrated. 4. Apparent cellulitis of the heel pad. No calcaneal osteomyelitis demonstrated. Bret Truong MD Ankle MRI 06/07/16 0000 Signed Impressions: Service Date/Time: Tuesday, June 07, 2016 09:34 - CONCLUSION: 1. No evidence of osteomyelitis. 2. Old healed fracture of the distal fibula. 3. Subcutaneous nonspecific edema. Juan Bonilla MD Upper Extremity Ultrasound 06/05/16 0000 Signed Impressions: Service Date/Time: Sunday, June 05, 2016 20:02 - CONCLUSION: Normal examination. K. Charly Izaguirre MD Aorta w/Runoff CTA 06/01/16 0000 Signed Impressions: Service Date/Time: May 12:13 - CONCLUSION: 1. Heavily diseased but adequate in flow down to the level of the groin bilaterally. 2. 3. Right le. Diffusely diseased superficial femoral artery with multiple areas of moderate and scattered areas of high grade stenosis. The popliteal is diseased but adequate in caliber. Distally, there is single vessel runoff into the foot via the anterior tibial. 5. 6. Left le. Heavily diseased superficial femoral with scattered areas of moderate and high grade stenosis. The popliteal is heavily diseased as well. Distally, there is occlusion of the origin of all 3 trifurcation vessels. Eventually, there is reconstitution of the anterior tibial and posterior tibial. Aric Cazares MD Head CT 05/24/16 1217 Signed Impressions: Service Date/Time: Tuesday, May 24, 2016 12:55 - CONCLUSION: 1. No acute intracranial abnormality. 2. Atrophy. 3. Chronic small vessel ischemic change. Juvenal Jarquin Jr., MD PE at Discharge GENERAL: This is a well-nourished, well-developed patient, in no apparent distress. CARDIOVASCULAR: Regular rate and regular rhythm without murmurs, gallops, or rubs. RESPIRATORY: Clear to auscultation. Breath sounds equal bilaterally. No wheezes , rales, or rhonchi. GASTROINTESTINAL: Abdomen soft, non-tender, distended. Normal, active bowel sounds MUSCULOSKELETAL: s/p left AKA NEURO: Alert & Oriented x4 to person, place, time, situation. Moves all ext x4 Hospital Course s/p left AKA -continue pain control. - Abx discontinued. Appreciate rehabilitation medicine's recommendations concerning long-term recommendations in rehabilitation and improvement of ADL fluid overload- improved- continue diuretic-neb treatment as needed. generalized abdominal pain; improved.CT of the abdomen as noted above. Acute kidney injury improved on IV hydration- Previous Sepsis on admission. Resolved. - Initially thought to be secondary to Natalie UTI, however most likely secondary to osteomyelitis. -Abx discontinued per ID. -urinary retention; the patient says that he failed the voiding trial before and wants to continue with cabello at this time.voiding trial in a few days as outpatient. Acute Anemia. Currently asymptomatic -Slow decline. Likely anemia of inflammation - - s/p PRBC transfusion with improved H/H. -GI f/u appreciated; f/u with colonoscopy as outpatient. Type 2 diabetes. Overall Control. Continue sliding scale insulin. Atrial fibrillation. Currently heart rate is controlled. Restarted warfarin and coreg. PT/INR monitoring. Diabetic neuropathy. Chronic. Continue gabapentin. Tobaccoism. Recommend cessation. Hypertension-resume coreg- will resume CLAY-I as outpatient if BP stable. UTI. On admission with Natalie glabrata. Status post diflucan. DVT Prophylaxis. Coumadin restarted . Pt Condition on Discharge: Fair Discharge Disposition: Discharge to SNF Discharge Time: > 30 minutes Discharge Instructions DIET: Follow Instructions for: Heart Healthy Diet, Diabetic Diet Activities you can perform: Regular-No Restrictions Follow up Referrals: Gastroenterology Orthopedics - 2 Weeks @ [facility] with Rajiv Ferrer MD PCP Follow-up New Medications: Aspirin (Aspirin) 81 Mg Chew 81 MG CHEW DAILY cad Days 30 Ref 0 TAB Calcium Citrate-Vitamin D (Citracal + D3 Maximum) 315-250 Mg-Unit Tab 1 TAB PO BID Calcium Supplement #100 Ref 0 TAB Hydrocodone-Acetaminophen ([place]) 10-325 Mg Tab 1 TAB PO Q4H PRN PAIN #60 Ref 0 TAB Atorvastatin (Lipitor) 20 Mg Tab 20 MG PO HS dyslipidemia Days 30 Ref 0 TAB Furosemide (Furosemide) 20 Mg Tab 20 MG PO DAILY diuretic Days 30 Ref 0 TAB Gabapentin (Neurontin) 300 Mg Cap 300 MG PO TID Pain Management Days 30 Ref 0 CAP Tamsulosin (Flomax) 0.4 Mg Cap 0.4 MG PO DAILY urinary retention Days 30 Ref 0 CAP Warfarin (Coumadin) 3 Mg Tab 3 MG PO DAILY@16 anticoagulation Days 30 Ref 0 TAB Changed Medications: Potassium Chloride ER (Potassium Chloride ER) 20 Meq Tab 20 MEQ PO DAILY Electrolyte Replacement Days 30 Ref 0 TAB (Changed from: BID; Removed Quantity) Continued Medications: Amiodarone (Amiodarone) 200 Mg Tab 200 MG PO DAILY Regulate Heart Beat #30 Ref 0 TAB Ascorbic Acid (Vitamin C) 500 Mg Chew 500 MG PO BID Nutritional Supplement #60 Ref 0 TAB Carvedilol (Coreg) 3.125 Mg Tab 3.125 MG PO Q12HR HTN #60 Ref 0 TAB Docusate Sodium (Colace) 100 Mg Cap 100 MG PO BID Constipation #60 Ref 0 CAP Escitalopram (Lexapro) 10 Mg Tab 10 MG PO DAILY #30 Ref 0 TAB Insulin Detemir Inj (Levemir Flextouch Pen Inj) 300 unit/3 ML Pen 15 UNITS SQ HS Blood Sugar Management Ref 0 PEN Insulin Human Regular Inj (Novolin R Inj) 1,000 Unit/10 Ml Vial 3-15 UNITS SQ DIRECTED Sliding Scale: if 201-250=3 units, 251-300=5 units, 301-350=8 units, 351-400=10 units, 401+=15 units and call Blood Sugar Management #10 Ref 0 ML Metoclopramide (Reglan) 10 Mg Tab 10 MG PO QID #120 Ref 0 TAB Multiple Vitamins W/ Minerals (Multivitamin Men) 1 Tab Tab 1 TAB PO DAILY Nutritional Supplement Ref 0 TAB Omeprazole (Omeprazole) 20 Mg Tab 20 MG PO DAILY GERD #30 Ref 0 TAB Ondansetron (Zofran) 4 Mg Tab 4 MG IM Q4HR PRN NAUSEA OR VOMITING Ref 0 TAB Promethazine (Phenergan) 25 Mg Tab 25 MG PO Q4HR PRN NAUSEA OR VOMITING Ref 0 TAB Saline Nasal ([place] Nasal [place]) 0.65% [place] 2 SPRAY EACH NARE Q6HR PRN NASAL CONGESTION #1 Ref 0 BOTTLE Simethicone (Simethicone) 80 Mg Chw 80 MG CHEW QID PRN GAS RETENTION Ref 0 TAB Discontinued Medications: Aspirin DR (Aspirin Enteric Coated Adult) 81 Mg Tabdr 162 MG PO DAILY Bumetanide (Bumex) 1 Mg Tab 1 MG PO BID Ref 0 TAB Hydrocodone-Acetaminophen ([place]) 7.5-325 mg Tab 1 TAB PO Q6H PRN PAIN Ref 0 TAB Lisinopril (Lisinopril) 2.5 Mg Tab 2.5 MG PO DAILY #30 Ref 0 TAB Warfarin (Warfarin) 1 Mg Tab 5.5 MG PO DAILY Take 1/2 tab (0.5mg) with 5mg tablet for a total dose of 5.5mg daily Blood Clot Prevention #30 Ref 0 TAB Warfarin (Warfarin) 5 Mg Tab 5.5 MG PO DAILY Take 1 tablet (5mg) with 1/2 of 1mg tab (0.5mg) for a total dose of 5.5mg daily Blood Clot Prevention #30 Ref 0 TAB Ronn Pugh MD Jun 26, 2016 10:35
[2016-06-26] MEDS ORDERED: ASPI81CH CHEW (10:39)
[2016-06-26] MEDS ORDERED: CITRTAB7 PO (10:44)
--- NOTE | 2016-06-26 10:47 | HHI.GIFU ---
Subjective Remarks Resting in bed. Tolerating diet. No n/v. No abdominal pain. + BM. No bleeding. (Joelle Lyon) Objective Vitals I&O Vital Signs Date Time Temp Pulse Resp B/P Pulse Ox O2 Delivery O2 Flow Rate FiO2 06/26/16 08:55 Nasal Cannula 2.00 06/26/16 08:01 72 06/26/16 08:00 97.8 71 18 115/62 92 06/26/16 04:00 97.5 77 17 113/58 95 06/26/16 00:00 97.8 78 17 122/57 97 06/25/16 20:00 71 06/25/16 20:00 98.0 81 18 111/55 97 06/25/16 19:00 Nasal Cannula 2.00 06/25/16 16:29 98.5 80 18 118/58 98 06/25/16 15:35 17 06/25/16 12:12 98.3 76 18 130/69 100 I/O 06/25/16 06/25/16 06/25/16 06/26/16 06/26/16 06/26/16 07:00 15:00 23:00 07:00 15:00 23:00 Intake Total 480 ml 480 ml 480 ml 120 ml Output Total 1100 ml 1550 ml 550 ml 600 ml Balance -620 ml -1070 ml -70 ml -480 ml Intake Oral 480 ml 480 ml 480 ml 120 ml IV Total 0 ml Output Urine Total 1100 ml 1550 ml 550 ml 600 ml # Bowel Movements 1 0 0 0 Laboratory Laboratory Tests Test 06/26/16 06:08 Prothrombin Time 23.2 Prothromb Time International 2.0 Ratio Imaging Last Impressions Chest X-Ray 06/25/16 0600 Signed Impressions: Service Date/Time: Saturday, June 25, 2016 04:34 - CONCLUSION: 1. Cardiomegaly and findings of congestive heart failure. The findings are improved when compared with the prior exam. James Leung MD Abdomen/Pelvis CT 06/22/16 0000 Signed Impressions: Service Date/Time: June 17:23 - CONCLUSION: 1. Uncomplicated colonic diverticulosis. 2. Small bilateral pleural effusions with adjacent compressive atelectasis. 3. Scattered tiny calcified nonobstructing bilateral renal calculi. 4. Degenerative changes and scoliosis of the lumbar spine. Raúl Fregoso MD Abdomen Ultrasound 06/21/16 0000 Signed Impressions: Service Date/Time: Tuesday, June 21, 2016 10:33 - CONCLUSION: There is no significant ascites. Nahid Cazares MD FACR Brain MRI 06/15/16 1143 Signed Impressions: Service Date/Time: June 12:49 - CONCLUSION: 1. Cerebral atrophy and extensive chronic ischemic small vessel vasculopathy. 2. No acute infarction. Subhash Arteaga MD Carotid Artery Ultrasound 06/15/16 0000 Signed Impressions: Service Date/Time: June 18:56 - CONCLUSION: 1. Bilateral carotid bifurcation atherosclerosis, moderate on the right and mild on the left. No hemodynamically significant narrowing on either side. 2. Limited study and the vertebral arteries are not well-visualized today. They had antegrade flow within them on the prior ultrasound. Bret Truong MD Foot MRI 06/07/16 0000 Signed Impressions: Service Date/Time: Tuesday, June 07, 2016 09:34 - CONCLUSION: 1. Deep soft tissue ulcer of the midfoot and with associated osteomyelitis of the plantar/lateral aspect of the fourth metatarsal base and mid to distal cuboid. Please see above. Fifth metatarsal previously resected. 2. Second toe amputation since the prior MRI. Indurated soft tissues and focal cortical destruction seen of the second metatarsal head remnant. No deep osteomyelitis of the second metatarsal. 3. No soft tissue abscesses are demonstrated. 4. Apparent cellulitis of the heel pad. No calcaneal osteomyelitis demonstrated. Bret Truong MD Ankle MRI 06/07/16 0000 Signed Impressions: Service Date/Time: Tuesday, June 07, 2016 09:34 - CONCLUSION: 1. No evidence of osteomyelitis. 2. Old healed fracture of the distal fibula. 3. Subcutaneous nonspecific edema. Juan Bonilla MD Upper Extremity Ultrasound 06/05/16 0000 Signed Impressions: Service Date/Time: Sunday, June 05, 2016 20:02 - CONCLUSION: Normal examination. Don Izaguirre MD Aorta w/Runoff CTA 06/01/16 0000 Signed Impressions: Service Date/Time: May 12:13 - CONCLUSION: 1. Heavily diseased but adequate in flow down to the level of the groin bilaterally. 2. 3. Right le. Diffusely diseased superficial femoral artery with multiple areas of moderate and scattered areas of high grade stenosis. The popliteal is diseased but adequate in caliber. Distally, there is single vessel runoff into the foot via the anterior tibial. 5. 6. Left le. Heavily diseased superficial femoral with scattered areas of moderate and high grade stenosis. The popliteal is heavily diseased as well. Distally, there is occlusion of the origin of all 3 trifurcation vessels. Eventually, there is reconstitution of the anterior tibial and posterior tibial. Aric Cazares MD Head CT 05/24/16 1217 Signed Impressions: Service Date/Time: Tuesday, May 24, 2016 12:55 - CONCLUSION: 1. No acute intracranial abnormality. 2. Atrophy. 3. Chronic small vessel ischemic change. Juvenal Jarquin Jr., MD Physical Exam HEENT: Normocephalic; atraumatic; no jaundice. CHEST: CTA. CARDIAC: RRR. ABDOMEN: Soft, nondistended, nontender; no hepatosplenomegaly; bowel sounds are present in all four quadrants. EXTREMITIES: Left AKA SKIN: Normal; no rash; no jaundice. CALL CENTER MANAGER: No focal deficits; alert and oriented times three. (Joelle Lyon [facility]) Assessment and Plan Plan ASSESSMENT: - Chronic Anemia. He is being worked up for possible TIA. He is on Coumadin. EGD on (05/09/16)--->reflux esophagitis, small hiatal hernia, gastritis, bx showed barrettes. He never had a colonoscopy before. No obvious active bleeding. S/P 5 units PRBC. HH 9.5/28.5. He is not having any obvious active GI bleeding and he is not stable for colonoscopy at this time secondary to recent AKA, risk of contamination - TIA. Neurology on the case, work up in progress - Osteomyelitis of left ankle S/P AKA (06/13/16) - Atrial fibrillation. on Coumadin - PVD, DM, CHF, Depression, COPD, HTN per primary PLAN: - Okay to d/c home from GI standpoint - SUSAN - FU CHRISTINA in 3-4 weeks, sooner if signs of bleeding - Outpatient colonoscopy - Pt seen and examined by Dr. Esparza and myself and this note is written on his behalf (Joelle Lyon) Physician Comments Seen and examined with Ms. Camron SARAVIA, no active bleeding. Gi alva on hold due to recent surgery/osteomyelitis. Going to rehab today. Gi fu as outpt when able to proceed with colonoscopy. Thank you (Ry Esparza MD) Joelle Lyon Jun 26, 2016 10:47 Ry Esparza MD Jun 26, 2016 15:40
[2016-06-26 12:00] VITALS: BP 125/61; PULSE 76; RESP 24; TEMP 97.6; O2SAT 96
[2016-11-02] MEDS ORDERED: DOCU1CAP21 PO (16:09)
[2016-11-02] MEDS ORDERED: VITA250T3 PO (16:21)
[2016-11-02] MEDS ORDERED: MULT-142 PO (16:21)
[2016-11-02] MEDS ORDERED: CIPR250T52 PO (16:21)
[2016-11-02] MEDS ORDERED: SIME1CAP17 PO (16:21)
[2016-11-02] MEDS ORDERED: PRIL20TA2 PO (16:21)
[2016-11-03] MEDS ORDERED: FURO10IN IV PUSH (13:43)
== END 2016-06-26 13:05 | DRG 853 ==
LOC: NEPA 11:48 → NEDA 14:29 → HIME 18:50 → N04B 05-27 23:35
PROVIDERS: ADMIT Internal Medicine; ATTEND Internal Medicine
PROC: 0HBKXZZ Excision of Right Lower Leg Skin, External Approach (ICD-10-PCS; 2016-05-24)
PROC: 0JBR0ZZ Excision of Left Foot Subcutaneous Tissue and Fascia, Open Approach (ICD-10-PCS; 2016-05-24)
PROC: 0T9B70Z Drainage of Bladder with Drainage Device, Via Natural or Artificial Opening (ICD-10-PCS; 2016-05-24)
PROC: 30233N1 Transfusion of Nonautologous Red Blood Cells into Peripheral Vein, Percutaneous Approach (ICD-10-PCS; 2016-05-26)
PROC: 0Y6D0Z3 Detachment at Left Upper Leg, Low, Open Approach (ICD-10-PCS; principal; 2016-06-13 07:22)
DX: A41.9 Sepsis, unspecified organism (principal); G93.41 Metabolic encephalopathy; N17.0 Acute kidney failure with tubular necrosis; L89.152 Pressure ulcer of sacral region, stage 2; E11.52 Type 2 diabetes mellitus with diabetic peripheral angiopathy with gangrene; E11.22 Type 2 diabetes mellitus with diabetic chronic kidney disease; K22.70 Barrett's esophagus without dysplasia; E11.621 Type 2 diabetes mellitus with foot ulcer; E11.40 Type 2 diabetes mellitus with diabetic neuropathy, unspecified; E87.1 Hypo-osmolality and hyponatremia; L97.219 Non-pressure chronic ulcer of right calf with unspecified severity; L97.319 Non-pressure chronic ulcer of right ankle with unspecified severity; L97.429 Non-pressure chronic ulcer of left heel and midfoot with unspecified severity; M86.9 Osteomyelitis, unspecified; B37.49 Other urogenital candidiasis; I48.2 Chronic atrial fibrillation; E86.0 Dehydration; I12.9 Hypertensive chronic kidney disease with stage 1 through stage 4 chronic kidney disease, or unspecified chronic kidney disease; I50.9 Heart failure, unspecified; E87.5 Hyperkalemia; F32.9 Major depressive disorder, single episode, unspecified; H91.90 Unspecified hearing loss, unspecified ear; I44.0 Atrioventricular block, first degree; R00.1 Bradycardia, unspecified; J44.9 Chronic obstructive pulmonary disease, unspecified; N18.9 Chronic kidney disease, unspecified; E11.622 Type 2 diabetes mellitus with other skin ulcer; L97.529 Non-pressure chronic ulcer of other part of left foot with unspecified severity; K44.9 Diaphragmatic hernia without obstruction or gangrene; K21.0 Gastro-esophageal reflux disease with esophagitis; G89.29 Other chronic pain; R65.20 Severe sepsis without septic shock; I25.10 Atherosclerotic heart disease of native coronary artery without angina pectoris; Z79.4 Long term (current) use of insulin; Z87.440 Personal history of urinary (tract) infections; Z99.3 Dependence on wheelchair; Z79.01 Long term (current) use of anticoagulants; R79.1 Abnormal coagulation profile; E66.01 Morbid (severe) obesity due to excess calories; F17.200 Nicotine dependence, unspecified, uncomplicated; R56.9 Unspecified convulsions; D69.59 Other secondary thrombocytopenia; Z86.14 Personal history of Methicillin resistant Staphylococcus aureus infection; B95.62 Methicillin resistant Staphylococcus aureus infection as the cause of diseases classified elsewhere; D64.9 Anemia, unspecified; Z89.512 Acquired absence of left leg below knee; R53.1 Weakness
CPT/HCPCS: 36430; 36600; 70450; 70551; 71010; 73720; 73723; 74177; 75635; 76705; 80048; 80053; 80061; 80202; 80320; 81001; 82550; 82565; 82805; 82948; 83036; 83605; 83735; 84484; 85014; 85018; 85025; 85027; 85384; 85610; 85730; 86077; 86403; 86850; 86870; 86880; 86900; 86901; 86920; 86922; 87040; 87070; 87086; 87147; 87186; 87205; 87641; 88307; 88311; 93005; 93880; 93923; 93971; 94150; 94664; 95819; 96365; A9579; C9113; G0479; J0131; J0610; J0690; J0692; J0696; J1580; J1815; J1940; J2250; J2270; J2370; J2405; J2543; J3370; J3430; J7030; J7040; J7050; J7120; J7611; J7613; L1830; P9016; Q9963; Q9967

== ENCOUNTER 2016-10-23 18:32 | Emergency (ER) | payer MEDICARE, OTHER ==
[~2016-10-23] VITALS: Ht 188 cm; Wt 108.0 kg
[~2016-10-23 18:32] MED LIST changes: +ASPI81CH CHEW; -ASPI81TA44 PO; -BUME1TAB26 PO; +CITRTAB7 PO; +COUM3TAB PO; -COUM4TAB PO; +FURO20TA PO; -HYDR-3288 PO; +HYDR-3366 PO; +LIPI20TA PO; -LISI2.5T3 PO; +NEUR300C PO; +OMEP20TA PO; +POTA-163 PO; -POTA75TA PO; -PROM12.55 PO; +PROM25TA5 PO; -PROT40TA PO; -SILV1CRE20 TOPICAL; +TAMS5CAP PO; -WARF4TAB52 PO
[2016-10-23 18:39] VITALS: BP 115/56; PULSE 68; RESP 18; TEMP 98.1; O2SAT 98
[2016-10-23 19:20] VITALS: O2SAT 98
--- NOTE | 2016-10-23 19:26 | PD ---
HPI Chief Complaint: Abnormal Results Time Seen by Provider: 19:22 Travel History International Travel<30 days: No Contact w/Intl Traveler<30days: No Traveled to known affect area: No History of Present Illness HPI 66-year-old male that presents to the ED for evaluation of low hemoglobin. Patient was brought here by ambulance for evaluation of hemoglobin is 6.8. Patient takes Coumadin. He denies any bleeding of any kind. Not symptomatic. He does have a history of diabetes and recent amputation of the left leg. Denies any diarrhea. No chest pain or shortness of breath. Complains of a chronic pain to his right arm which is in ongoing for months and is following up with a neurologist soon. He denies any history of anemia. History of MRSA. Pain per patient on the arm is and out of 10. Denies any urinary symptoms. No hematomas. No allergies to medication. Blood was drawn 2 days ago. Patient comes here with paperwork from the half-way where he sat that showed a labwork as well as the medications that he takes. He has been taking Coumadin. PFSH Past Medical History Hx Anticoagulant Therapy: Yes (WARFARIN ) Asthma: No Blood Disorders: Yes Anxiety: No Depression: Yes Heart Rhythm Problems: Yes (AFIB) Cancer: No Cardiovascular Problems: Yes (CHF, AFIB ) Chemotherapy: No COPD: Yes Diabetes: Yes Diminished Hearing: Yes ([place]) Endocrine: Yes Gastrointestinal Disorders: No Genitourinary: No Hypertension: Yes Immune Disorder: No Implanted Vascular Access Dvce: No Musculoskeletal: No Neurologic: Yes Psychiatric: Yes Reproductive: No Respiratory: Yes (COPD ) Radiation Therapy: No Sleep Apnea: No Thyroid Disease: No Past Surgical History Abdominal Surgery: Yes (GALLBLADDER) Cholecystectomy: Yes Pacemaker: No Tonsillectomy: Yes Other Surgery: Yes Social History Alcohol Use: No Tobacco Use: No Substance Use: No Allergies-Medications (Allergen,Severity, Reaction): Coded Allergies: *MDRO Multi-Drug Resistant Organism (Verified Adverse Reaction, Unknown, MRSA, 10/23/16) MRSA (toe wound) - 01/27/16; (foot) - 05/24/16 MRSA PCR Screen POSITIVE - 05/26/16 Reported Meds & Prescriptions Reported Meds & Active Scripts Active Cipro (Ciprofloxacin HCl) 500 Mg Tab 500 Mg PO BID 7 Days Citracal + D3 Maximum (Calcium Citrate-Vitamin D) 315-250 Mg-Unit Tab 1 Tab PO BID Potassium Chloride ER (Potassium Chloride) 20 Meq Tab 20 Meq PO DAILY 30 Days Furosemide 20 Mg Tab 20 Mg PO DAILY 30 Days Flomax (Tamsulosin HCl) 0.4 Mg Cap 0.4 Mg PO DAILY 30 Days Neurontin (Gabapentin) 300 Mg Cap 300 Mg PO TID 30 Days Lipitor (Atorvastatin Calcium) 20 Mg Tab 20 Mg PO HS 30 Days Maribel (Hydrocodone-Acetaminophen) 10-325 Mg Tab 1 Tab PO Q4H PRN Reported Reglan (Metoclopramide HCl) 10 Mg Tab 10 Mg PO QID Prilosec (Omeprazole) 20 Mg Cap 20 Mg PO DAILY Coumadin (Warfarin) 6 Mg Tab 6 Mg PO DAILY Zofran (Ondansetron HCl) 4 Mg Tab 4 Mg IM Q4HR PRN Vitamin C (Ascorbic Acid) 500 Mg Chew 500 Mg PO BID Simethicone 80 Mg Chw 80 Mg CHEW QID PRN Reglan (Metoclopramide HCl) 10 Mg Tab 10 Mg PO QID [place] Nasal [place] (Sodium Chloride) 0.65% [place] 2 [place] EACH NARE Q6HR PRN Novolin R Inj (Insulin Human Regular) 1,000 Unit/10 Ml Vial 3-15 Units SQ DIRECTED Sliding Scale: if 201-250=3 units, 251-300=5 units, 301-350=8 units, 351-400=10 units, 401+=15 units and call Multivitamin Men (Multiple Vitamins W/ Minerals) 1 Tab Tab 1 Tab PO DAILY Lexapro (Escitalopram Oxalate) 10 Mg Tab 10 Mg PO DAILY Levemir Flextouch Pen Inj (Insulin Detemir) 300 unit/3 ML Pen 15 Units SQ HS Coreg (Carvedilol) 3.125 Mg Tab 3.125 Mg PO Q12HR Colace (Docusate Sodium) 100 Mg Cap 100 Mg PO BID Amiodarone (Amiodarone HCl) 200 Mg Tab 200 Mg PO DAILY Review of Systems Except as stated in HPI: all other systems reviewed are Neg Physical Exam Narrative GENERAL: SKIN: Warm and dry. HEAD: Atraumatic. Normocephalic. EYES: Pupils equal and round. No scleral icterus. No injection or drainage. ENT: No nasal bleeding or discharge. Mucous membranes pink and moist. Tongue is midline. No uvula deviation. NECK: Trachea midline. No JVD. CARDIOVASCULAR: Regular rate and rhythm. No murmurs, S3, S4. RESPIRATORY: No accessory muscle use. Clear to auscultation. Breath sounds equal bilaterally. GASTROINTESTINAL: Abdomen soft, non-tender, nondistended. Hepatic and splenic margins not palpable. MUSCULOSKELETAL: Extremities without clubbing, cyanosis, or edema. No obvious deformities. Full range of motion of the upper and lower extremities bilaterally. 2+ pulses bilaterally. Patient does have a [id number] amputation of the left leg. Patient does have a chronic wound to his right ankle. NEUROLOGICAL: Awake and alert. No obvious cranial nerve deficits. Motor grossly within normal limits. Five out of 5 muscle strength in the arms and legs. Normal speech. PSYCHIATRIC: Appropriate mood and affect; insight and judgment normal. Data Data Last Documented VS Vital Signs Date Time Temp Pulse Resp B/P Pulse Ox O2 Delivery O2 Flow Rate FiO2 10/23/16 19:20 98 Nasal Cannula 2 10/23/16 18:39 98.1 68 18 115/56 Orders Electrocardiogram (10/23/16 18:47) Complete Blood Count With Diff (10/23/16 18:47) Basic Metabolic Panel (Bmp) (10/23/16 18:47) Prothrombin Time / Inr (Pt) (10/23/16 18:47) Act Partial Throm Time (Ptt) (10/23/16 18:47) Urinalysis - C+S If Indicated (10/23/16 18:47) Magnesium (Mg) (10/23/16 18:47) Iv Access Insert/Monitor (10/23/16 18:47) Ecg Monitoring (10/23/16 18:47) Oximetry (10/23/16 18:47) Type And Screen (10/23/16 18:47) Red Blood Cells (Rbc) (10/23/16 18:47) Urine Culture (10/23/16 19:05) Ciprofloxacin 200 Mg Premix (Cipro 200 M (10/23/16 20:15) Labs Laboratory Tests Test 10/23/16 19:05 White Blood Count 6.8 TH/MM3 Red Blood Count 2.49 MIL/MM3 Hemoglobin 8.0 GM/DL Hematocrit 23.0 % Mean Corpuscular Volume 92.3 FL Mean Corpuscular Hemoglobin 32.0 PG Mean Corpuscular Hemoglobin 34.6 % Concent Red Cell Distribution Width 15.1 % Platelet Count 177 TH/MM3 Mean Platelet Volume 7.6 FL Neutrophils (%) (Auto) 63.7 % Lymphocytes (%) (Auto) 22.8 % Monocytes (%) (Auto) 7.9 % Eosinophils (%) (Auto) 4.5 % Basophils (%) (Auto) 1.1 % Neutrophils # (Auto) 4.3 TH/MM3 Lymphocytes # (Auto) 1.5 TH/MM3 Monocytes # (Auto) 0.5 TH/MM3 Eosinophils # (Auto) 0.3 TH/MM3 Basophils # (Auto) 0.1 TH/MM3 CBC Comment DIFF FINAL Differential Comment Prothrombin Time 20.0 SEC Prothromb Time International 1.8 RATIO Ratio Activated Partial 41.5 SEC Thromboplast Time Urine Color YELLOW Urine Turbidity CLOUDY Urine pH 5.0 Urine Specific [place] 1.018 Urine Protein 30 mg/dL Urine Glucose (UA) NEG mg/dL Urine Ketones NEG mg/dL Urine Occult Blood MOD Urine Nitrite NEG Urine Bilirubin NEG Urine Urobilinogen LESS THAN 2.0 MG/DL Urine Leukocyte Esterase LARGE Urine RBC 66 /hpf Urine WBC /hpf Urine WBC Clumps OCC Urine Bacteria MOD /hpf Microscopic Urinalysis Comment CULTURE INDICATED Sodium Level 137 MEQ/L Potassium Level 4.6 MEQ/L Chloride Level 100 MEQ/L Carbon Dioxide Level 30.7 MEQ/L Anion Gap 6 MEQ/L Blood Urea Nitrogen 26 MG/DL Creatinine 1.19 MG/DL Estimat Glomerular Filtration 61 ML/MIN Rate Random Glucose 141 MG/DL Calcium Level 8.4 MG/DL Magnesium Level 2.4 MG/DL MDM Medical Decision Making Medical Screen Exam Complete: Yes Emergency Medical Condition: Yes Medical Record Reviewed: Yes Interpretation(s) CBC & BMP Diagram 10/23/16 19:05 UA shows possible UTI COags with INR of 1.8 Differential Diagnosis Anemia versus GI bleed versus follow-up at the versus leukocytosis versus normal exam Narrative Course 66-year-old male that presents to the ED for evaluation of low hemoglobin. Patient was properly examined and was found to have signs and symptoms of unclear etiology. Patient does come here with blood work that shows a hemoglobin of 6.8. Patient takes blood thinners. Hemoccult was done and was negative. Labs were ordered. This showed hemoglobin of 8 and 9 or 1.8 with possible UTI. Otherwise labs are unremarkable. At this time I do not see any need for infusion of blood. Patient does not have any signs of bleeding alert and on the urine but this is secondary to a catheter. Case was discussed with my attending Dr Garcia who was made aware of findings and who is in agreement with plan. At this time I recommend outpatient lab done tomorrow as well as prescription for Cipro. Patient was given Cipro here in the ED. Patient was told to get blood check tomorrow. See ED worsening symptoms. Patient is in agreement with this plan. Diagnosis Primary Impression: Anemia Qualified Code: D64.9 - Anemia, unspecified type Additional Impression: UTI (urinary tract infection) Qualified Code: N30.01 - Acute cystitis with hematuria Patient Instructions: General Instructions Additional Instructions: Get your blood check tomorrow for reassessment of hemoglobin. Your hemoglobin here was 8. Antibiotic as prescribed. Follow with PCP. See ED worsening symptoms. Med/Other Pt SpecificInfo: Prescription(s) given Scripts Ciprofloxacin (Cipro)500 Mg [id number] Mg PO BID 7 Days Prov:Augusta Garcia MD 10/23/16 Disposition: 06 DISCH W/HOME HEALTH SERVICE Condition: Silviano Mckenzie October 23, 2016 19:26
[2016-10-23 19:29] LABS: APTT (PATIENT) 41.5 SEC (24.3-30.1); INTERNATIONAL NORMALIZED RATIO 1.8 RATIO
[2016-10-23 19:39] LABS: AUTOMATED NEUTROPHIL # 4.3 TH/MM3 (1.8-7.7); BACTERIA, URINE MOD /hpf; BASOPHIL # 0.1 TH/MM3 (0-0.2); BASOPHIL % 1.1 % (0.0-2.0); BLOOD, URINE MOD (NEG); COMMENT (UR) CULTURE INDICATED; CULTURE IF INDICATED CULTURE INDICATED; EOSINOPHIL # 0.3 TH/MM3 (0-0.4); EOSINOPHIL % 4.5 % (0.0-4.0); GLUCOSE,URINE NEG (NEG); HEMO FLAGS DIFF FINAL; KETONE, URINE NEG (NEG); LYMPH % 22.8 % (9.0-44.0); LYMPHOCYTE # 1.5 TH/MM3 (1.0-4.8); MEAN CELL VOLUME 92.3 FL (80.0-100.0); MEAN CORPUSCULAR HGB CONC 34.6 % (32.0-36.0); MONO % 7.9 % (0.0-8.0); NEUT % 63.7 % (16.0-70.0); NITRITE,URINE NEG (NEG); PLATELET COUNT 177 TH/MM3 (150-450); RED BLOOD COUNT 2.49 MIL/MM3 (4.50-5.90); RED CELL DISTRIBUTION WIDTH 15.1 % (11.6-17.2); URINE COLOR YELLOW (YELLW/STRAW); WHITE BLOOD COUNT 6.8 TH/MM3 (4.0-11.0)
[2016-10-23 19:54] LABS: BICARBONATE 30.7 MEQ/L (21.0-32.0); MAGNESIUM 2.4 MG/DL (1.5-2.5); POTASSIUM 4.6 MEQ/L (3.5-5.1)
[2016-10-23] MEDS ORDERED: PRIL20CA9 PO (19:54)
[2016-10-23] MEDS ORDERED: REGL10TA5 PO (19:54)
[2016-10-23] MEDS ORDERED: COUM6TAB PO (19:54)
[2016-10-23] MEDS ORDERED: CIPR-9 PO (20:11)
[2016-10-23] MEDS ORDERED: CIPROFLOXACIN 200 MG PREMIX 100 ML IV ONE (20:15)
--- NOTE | 2016-10-24 13:22 | EKG ---
Date Performed: 10/23/2016 Time Performed: 19:05:13 PTAGE: 66 years EKG: Sinus rhythm WITH SHORT CT INTERVAL ST DEVIATION AND MODERATE T-WAVE ABNORMALITY, CONSIDER LATERAL ISCHEMIA ABNOR MAL ECG PREVIOUS TRACING : 06/15/2016 20.12 Compared to prior tracing no significant change DOCTOR: Renny Chavez Interpretating Date/Time 10/24/2016 13:21:10
[2016-11-02] MEDS ORDERED: DOCU1CAP21 PO (16:09)
[2016-11-02] MEDS ORDERED: PRIL20TA2 PO (16:21)
[2016-11-02] MEDS ORDERED: SIME1CAP17 PO (16:21)
[2016-11-02] MEDS ORDERED: CIPR250T52 PO (16:21)
[2016-11-02] MEDS ORDERED: VITA250T3 PO (16:21)
[2016-11-02] MEDS ORDERED: MULT-142 PO (16:21)
[2016-11-03] MEDS ORDERED: FURO10IN IV PUSH (13:43)
== END 2016-10-23 21:01 | disposition home health service (06) ==
LOC: NEPE 18:32
DX: D64.9 Anemia, unspecified (principal); N39.0 Urinary tract infection, site not specified; N30.01 Acute cystitis with hematuria; Z79.01 Long term (current) use of anticoagulants; F32.9 Major depressive disorder, single episode, unspecified; I48.91 Unspecified atrial fibrillation; J44.9 Chronic obstructive pulmonary disease, unspecified; E11.9 Type 2 diabetes mellitus without complications; I10 Essential (primary) hypertension; R94.31 Abnormal electrocardiogram [ECG] [EKG]
CPT/HCPCS: 80048; 81001; 83735; 85025; 85610; 85730; 86850; 86900; 86901; 86922; 87086; 93005; 96374; 99284; J0744

== ENCOUNTER 2016-11-17 21:50 | Inpatient (IN) | payer MEDICARE, OTHER ==
[~2016-11-17] VITALS: Ht 188 cm; Wt 98.0 kg
[2016-11-17] VITALS (7 sets, daily range): BP systolic 93–110; BP diastolic 50–65; PULSE 65–70; RESP 14–18; TEMP 98.6; O2SAT 100
[~2016-11-17 21:50] MED LIST changes: -ASPI81CH CHEW; +CIPR250T52 PO; -COLA100C3 PO; -COUM3TAB PO; +COUM6TAB PO; +DOCU1CAP21 PO; +FURO10IN IV PUSH; -HYDR-3366 PO; +MULT-142 PO; -MULT1TAB85 PO; -OMEP20TA PO; +PRIL20TA2 PO; -PROM25TA5 PO; +SIME1CAP17 PO; -SIME80CH CHEW; +VITA250T3 PO; -VITA500C9 PO
[2016-11-17] MEDS ORDERED: MIDAZOLAM 100 MG/ML INJ 100 ML IV SCH (22:00)
[2016-11-17] MEDS ORDERED: MIDAZOLAM HCL 2 MG/2 ML VIAL IV ONE (22:00)
--- NOTE | 2016-11-17 22:02 | PD ---
HPI Chief Complaint: Respiratory Distress Time Seen by Provider: 21:55 Travel History International Travel<30 days: No Contact w/Intl Traveler<30days: No History of Present Illness HPI 66-year-old male presents by ambulance. The ambulance team arrived on scene his oxygen saturation on room air was in the 70s. They put him on a nonrebreather and placed him on CPAP and he was doing better when he started to have decline in his oxygen saturations so they proceeded with giving him Ativan and etomidate and intubating him. They also had given him nitroglycerin prior to this. [facility] History is limited from patient as he is intubated. PFSH Past Medical History Narrative Medical By our records and review of [facility] records Hx Anticoagulant Therapy: Yes (WARFARIN ) Asthma: No Blood Disorders: Yes Anxiety: No Depression: Yes Heart Rhythm Problems: Yes (AFIB) Cancer: No Cardiovascular Problems: Yes (CHF, AFIB ) Chemotherapy: No COPD: Yes Diabetes: Yes Diminished Hearing: Yes ([place]) Endocrine: Yes Gastrointestinal Disorders: No Genitourinary: No Hypertension: Yes Immune Disorder: No Implanted Vascular Access Dvce: No Musculoskeletal: No Neurologic: Yes Psychiatric: Yes Reproductive: No Respiratory: Yes (COPD ) Radiation Therapy: No Sleep Apnea: No Thyroid Disease: No Past Surgical History Narrative Surgical By our records Abdominal Surgery: Yes (GALLBLADDER) Cholecystectomy: Yes Pacemaker: No Tonsillectomy: Yes Other Surgery: Yes Social History Alcohol Use: No Tobacco Use: No Substance Use: No Allergies-Medications (Allergen,Severity, Reaction): Coded Allergies: *MDRO Multi-Drug Resistant Organism (Verified Adverse Reaction, Unknown, MRSA, 10/23/16) MRSA (toe wound) - 01/27/16; (foot) - 05/24/16 MRSA PCR Screen POSITIVE - 05/26/16 Reported Meds & Prescriptions Reported Meds & Active Scripts Active Citracal + D3 Maximum (Calcium Citrate-Vitamin D) 315-250 Mg-Unit Tab 1 Tab PO BID Potassium Chloride ER (Potassium Chloride) 20 Meq Tab 20 Meq PO DAILY 30 Days Furosemide 20 Mg Tab 20 Mg PO DAILY 30 Days Flomax (Tamsulosin HCl) 0.4 Mg Cap 0.4 Mg PO DAILY 30 Days Neurontin (Gabapentin) 300 Mg Cap 300 Mg PO TID 30 Days Lipitor (Atorvastatin Calcium) 20 Mg Tab 20 Mg PO HS 30 Days Reported Furosemide Inj (Furosemide) 10 Mg/Ml Inj 20 IV PUSH Simethicone 125 Mg Cap 80 Mg PO QID PRN Vitamin C (Ascorbic Acid) 250 Mg Tab 500 Mg PO DAILY Prilosec (Omeprazole Magnesium) 20 Mg Tab PO DAILY Multi Vitamin and Mineral (Multiple Vitamins W/ Minerals) 1 Tab Tab 1 PO DAILY Cipro (Ciprofloxacin HCl) 250 Mg Tab 500 Mg PO BID Colace Clear (Docusate Sodium) 50 Mg Cap 100 Mg PO Reglan (Metoclopramide HCl) 10 Mg Tab 10 Mg PO QID Coumadin (Warfarin) 6 Mg Tab 6 Mg PO DAILY Zofran (Ondansetron HCl) 4 Mg Tab 4 Mg IM Q4HR PRN Reglan (Metoclopramide HCl) 10 Mg Tab 10 Mg PO QID [place] Nasal [place] (Sodium Chloride) 0.65% [place] 2 [place] EACH NARE Q6HR PRN Novolin R Inj (Insulin Human Regular) 1,000 Unit/10 Ml Vial 3-15 Units SQ DIRECTED Sliding Scale: if 201-250=3 units, 251-300=5 units, 301-350=8 units, 351-400=10 units, 401+=15 units and call Lexapro (Escitalopram Oxalate) 10 Mg Tab 10 Mg PO DAILY Levemir Flextouch Pen Inj (Insulin Detemir) 300 unit/3 ML Pen 15 Units SQ HS Coreg (Carvedilol) 3.125 Mg Tab 3.125 Mg PO Q12HR Amiodarone (Amiodarone HCl) 200 Mg Tab 200 Mg PO DAILY Review of Systems Except as stated in HPI: all other systems reviewed are Neg Physical Exam Exam Limitations: Clinical Condition Narrative GENERAL: Intubated and sedated patient. SKIN: Warm and dry. HEAD: Normocephalic EYES: No injection or drainage. ENT: No nasal drainage noted. NECK: Supple, trachea midline. CARDIOVASCULAR: Regular rate and rhythm RESPIRATORY: crackles bilaterally at apices. No accessory muscle use. GASTROINTESTINAL: Abdomen soft, nondistended. NEUROLOGICAL: Intubated and sedated Data Data Last Documented VS Vital Signs Date Time Temp Pulse Resp B/P Pulse Ox O2 Delivery O2 Flow Rate FiO2 11/17/16 22:41 98.6 67 16 106/55 100 Ventilator 100 Orders Electrocardiogram (11/17/16 21:55) Complete Blood Count With Diff (11/17/16 21:55) Comprehensive Metabolic Panel (11/17/16 21:55) Prothrombin Time / Inr (Pt) (11/17/16 21:55) Act Partial Throm Time (Ptt) (11/17/16 21:55) Lactic Acid Sepsis Protocol (11/17/16 21:55) Magnesium (Mg) (11/17/16 21:55) Phosphorus (Po4) (11/17/16 21:55) Ckmb (Isoenzyme) Profile (11/17/16 21:55) Troponin I (11/17/16 21:55) Urinalysis - C+S If Indicated (11/17/16 21:55) Influenzae A/B Antigen (11/17/16 21:55) Blood Culture (11/17/16 21:55) Chest, Single Ap (11/17/16 21:55) Arterial Blood Gas (Abg) (11/17/16 21:55) Blood Glucose (11/17/16 21:55) Ecg Monitoring (11/17/16 21:55) Iv Access Insert/Monitor (11/17/16 21:55) Oximetry (11/17/16 21:55) Oxygen Administration (11/17/16 21:55) Midazolam Inj (Versed Inj) (11/17/16 22:00) Midazolam Inj (Versed Inj) (11/17/16 22:00) Neurological Rass Scale Q30MX2,Q2HX4,Q4H (11/17/16 21:57) Urinary Catheter Insert/Apply (11/17/16 22:02) Insert Ng Tube (11/17/16 22:02) Cefepime Inj (Maxipime Inj) (11/17/16 22:38) Azithromycin Inj (Zithromax Inj) (11/17/16 22:38) Furosemide Inj (Lasix Inj) (11/17/16 22:45) Midazolam Inj (Versed Inj) (11/17/16 22:51) B-Type Natriuretic Peptide (11/17/16 22:55) Admit Order (Ed Use Only) (11/17/16 22:58) CKMB (11/17/16 22:00) CKMB% (11/17/16 22:00) Labs Laboratory Tests Test 11/17/16 11/17/16 11/17/16 22:00 22:49 22:55 White Blood Count 9.2 TH/MM3 Red Blood Count 2.37 MIL/MM3 Hemoglobin 7.3 GM/DL Hematocrit 21.8 % Mean Corpuscular Volume 92.0 FL Mean Corpuscular Hemoglobin 30.9 PG Mean Corpuscular Hemoglobin 33.6 % Concent Red Cell Distribution Width 16.0 % Platelet Count 188 TH/MM3 Mean Platelet Volume 8.4 FL Neutrophils (%) (Auto) 84.8 % Lymphocytes (%) (Auto) 7.8 % Monocytes (%) (Auto) 6.7 % Eosinophils (%) (Auto) 0.4 % Basophils (%) (Auto) 0.3 % Neutrophils # (Auto) 7.8 TH/MM3 Lymphocytes # (Auto) 0.7 TH/MM3 Monocytes # (Auto) 0.6 TH/MM3 Eosinophils # (Auto) 0.0 TH/MM3 Basophils # (Auto) 0.0 TH/MM3 CBC Comment DIFF FINAL Differential Comment Sodium Level 136 MEQ/L Potassium Level 5.3 MEQ/L Chloride Level 98 MEQ/L Carbon Dioxide Level 31.6 MEQ/L Anion Gap 6 MEQ/L Blood Urea Nitrogen 51 MG/DL Creatinine 1.67 MG/DL Estimat Glomerular Filtration 41 ML/MIN Rate Random Glucose 139 MG/DL Lactic Acid Level 2.1 mmol/L Calcium Level 8.4 MG/DL Phosphorus Level 3.7 MG/DL Magnesium Level 2.3 MG/DL Total Bilirubin 1.2 MG/DL Aspartate Amino Transf 654 U/L (AST/SGOT) Alanine Aminotransferase 589 U/L (ALT/SGPT) Alkaline Phosphatase 154 U/L Total Creatine Kinase 197 U/L Creatine Kinase MB 5.1 NG/ML Troponin I 0.16 NG/ML Total Protein 7.2 GM/DL Albumin 2.2 GM/DL Blood Gas Puncture Site RT RADIAL Blood Gas Patient Temperature 98.6 Blood Gas HCO3 28 mmol/L Blood Gas Base Excess 3.4 mmol/L Blood Gas Oxygen Saturation 83 % Arterial Blood pH 7.38 Arterial Blood Partial 49 mmHg Pressure CO2 Arterial Blood Partial 54 mmHG Pressure O2 Arterial Blood Oxygen Content 8.9 Vol % Arterial Blood 2.0 % Carboxyhemoglobin Arterial Blood Methemoglobin 0.7 % Blood Gas Hemoglobin 7.6 G/DL Oxygen Delivery Device VENTILATOR Blood Gas Ventilator Setting PRVC Blood Gas Inspired Oxygen 100 % Urine Color DARK-YELLOW Urine Turbidity HAZY Urine pH 5.0 Urine Specific [place] 1.020 Urine Protein 30 mg/dL Urine Glucose (UA) NEG mg/dL Urine Ketones NEG mg/dL Urine Occult Blood MOD Urine Nitrite NEG Urine Bilirubin NEG Urine Urobilinogen 8.0 MG/DL Urine Leukocyte Esterase LARGE Urine RBC 38 /hpf Urine WBC 20 /hpf Urine Squamous Epithelial 1 /hpf Cells Urine Amorphous Sediment RARE Urine Bacteria OCC /hpf Urine Hyaline Casts 69 /lpf Urine Granular Casts 15 /lpf Urine Mucus FEW /lpf Urine Yeast (Budding) FEW Microscopic Urinalysis Comment CATH-CULTURE IND MDM Medical Decision Making Medical Screen Exam Complete: Yes Emergency Medical Condition: Yes Medical Record Reviewed: Yes (past history confirmed) Interpretation(s) EKG is sinus rhythm at 70 with no STEMI criteria or consecutive T-wave inversion , mild ST depression laterally CBC & BMP Diagram 11/17/16 22:00 Last 24 hours Impressions Chest X-Ray 11/17/16 4170 Signed Impressions: Service Date/Time: Thursday, November 17, 2016 22:12 - CONCLUSION: 1. Endotracheal tube in satisfactory position. Bilateral airspace disease with small effusions. Cardiothoracic diagnosis is pulmonary edema. Nemesio Castañeda MD trop elevated given aspirin Differential Diagnosis CHF exacerbation, pneumonia, URI, COPD, anemia, renal failure Narrative Course Will check blood work, chest x-ray, EKG and place on versed drip and monitor cxr with pulmonary edema pattern, blood pressure cannot tolerate nitroglycerin. We'll give small dose Lasix and antibiotics to cover for possible infection On review of ABG patient's PO2 is decreased despite 100% FiO2 so we will increased PEEP from 5-10 and monitor closely in the ICU. Patient's brother came to bedside and he was updated about patient's critical status. He provided past history. Critical Care Narrative Aggregate critical care time was 45 minutes. Time to perform other separately billable procedures was not included in the critical care time. My time did not include minutes spent treating any other patients simultaneously or on activities that did not directly contribute to the patient's treatment. The services I provided to this patient were to treat and/or prevent clinically significant deterioration that could result in: Respiratory failure, shock I provided critical care services requiring my management, as noted below: Chart data review, documentation time, medication orders and management, vital sign assessments/reviewing monitor data, ordering and reviewing lab tests, ordering and interpreting/reviewing x-rays and diagnostic studies, care of the patient and discussion of the patient with the admitting physicians. Sepsis Criteria Sepsis Criteria (SIRS+source): Infect source susp/known Severe Sepsis (+one): Lactate >2 Physician Communication Physician Communication dr resendez agrees to admit Diagnosis Primary Impression: Acute respiratory failure Qualified Code: J96.00 - Acute respiratory failure, unspecified whether with hypoxia or hypercapnia Additional Impressions: Pulmonary edema Qualified Code: J81.0 - Acute pulmonary edema Anemia Qualified Code: D64.9 - Anemia, unspecified type UTI (urinary tract infection) Qualified Code: N39.0 - Urinary tract infection without hematuria, site unspecified Lactic acidemia Admitting Information Admitting Physician Requests: Admit Elsa Toribio MD Nov 17, 2016 22:02
[2016-11-17] MEDS ORDERED: AZITHROMYCIN INJ 500 MG in SODIUM CHLOR 0.9% 250 ML INJ 250 ML IV STA (22:38)
[2016-11-17] MEDS ORDERED: CEFEPIME INJ 2,000 MG in SODIUM CHLORIDE 0.9% INJ 100 ML IV STA (22:38)
--- NOTE | 2016-11-17 22:38 | RADRPT ---
EXAM DATE/TIME: 11/17/2016 22:12 [facility] COMPARISON: CHEST SINGLE AP, June 25, 2016, 4:34. INDICATIONS : Post intubation MEDICAL HISTORY : Diabetes mellitus type II. Cardiovascular disease. Chronic obstructive pulmonary disease. Sepsis, acu te renal failure SURGICAL HISTORY : None. ENCOUNTER: Initial ACUITY: 1 day PAIN SCORE: 0/10 LOCATION: Bilateral chest FINDINGS: A single view of the chest demonstrates endotracheal tube in satisfactory position. Bilateral airspac e disease slightly increased from prior study in June. Small effusions. CONCLUSION: 1. Endotracheal tube in satisfactory position. Bilateral airspace disease with small effusions. Cardi othoracic diagnosis is pulmonary edema. Nemesio Castañeda MD on November 17, 2016 at 22:35 Board Certified Radiologist. This report was verified electronically.
[2016-11-17 22:44] LABS: AUTOMATED NEUTROPHIL # 7.8 TH/MM3 (1.8-7.7); BASOPHIL % 0.3 % (0.0-2.0); EOSINOPHIL % 0.4 % (0.0-4.0); HEMATOCRIT 21.8 % (39.0-51.0); HEMO FLAGS DIFF FINAL; LYMPH % 7.8 % (9.0-44.0); LYMPHOCYTE # 0.7 TH/MM3 (1.0-4.8); MEAN CORPUSCULAR HEMOGLOBIN 30.9 PG (27.0-34.0); MEAN CORPUSCULAR HGB CONC 33.6 % (32.0-36.0); MONO % 6.7 % (0.0-8.0); NEUT % 84.8 % (16.0-70.0); PLATELET COUNT 188 TH/MM3 (150-450); RED BLOOD COUNT 2.37 MIL/MM3 (4.50-5.90); WHITE BLOOD COUNT 9.2 TH/MM3 (4.0-11.0)
[2016-11-17] MEDS ORDERED: FUROSEMIDE 40 MG/4 ML VIAL IV PUSH ONE (22:45)
[2016-11-17] MEDS ORDERED: MIDAZOLAM 100 MG/ML INJ 100 ML ONE (22:51)
[2016-11-17 23:03] LABS: ALT (GPT) 589 U/L (12-78); ANION GAP 6 MEQ/L (5-15); AST (GOT) 654 U/L (15-37); BICARBONATE 31.6 MEQ/L (21.0-32.0); BLOOD UREA NITROGEN 51 MG/DL (7-18); CHLORIDE 98 MEQ/L (98-107); GLOMERULAR FILTRATION RATE 41 ML/MIN (>89); MAGNESIUM 2.3 MG/DL (1.5-2.5); POTASSIUM 5.3 MEQ/L (3.5-5.1); SODIUM (NA) 136 MEQ/L (136-145)
[2016-11-17 23:07] LABS: ALKALINE PHOSPHATASE 154 U/L (45-117); CREATINE KINASE 197 U/L (39-308); TOTAL BILIRUBIN ADULT 1.2 MG/DL (0.2-1.0)
[2016-11-17] MEDS ORDERED: ASPIRIN 300 MG SUPP RECTAL ONE (23:15)
[2016-11-17 23:19] LABS: CKMB 5.1 NG/ML (0.5-3.6)
[2016-11-17 23:27] LABS: BLOOD GAS BASE EXCESS 3.4 mmol/L (-2-2); BLOOD GAS HCO3 28 mmol/L (22-26); BLOOD GAS METHEMOGLOBIN 0.7 % (0-2); BLOOD GAS O2 HGB SATURATION 83 % (90-100); BLOOD GAS OXYGEN CONTENT 8.9 Vol % (12.0-20.0); BLOOD GAS PCO2 49 mmHg (38-42); BLOOD GAS PO2 54 mmHG (61-120); BLOOD GAS TOTAL HGB 7.6 G/DL (12.0-16.0); TEMP CORR TO 98.6
[2016-11-17 23:28] LABS: CRITICAL VALUE YES; OXYGEN DEVICE VENTILATOR
[2016-11-17 23:29] LABS: DRAW SITE RT RADIAL; FIO2 100 %; NUMBER OF ARTERIAL PUNCTURES 3; STAT YES; ULNAR PULSE PRESENT; VENT SETTINGS PRVC
[2016-11-17 23:56] LABS: BACTERIA, URINE OCC /hpf; BLOOD, URINE MOD (NEG); COMMENT (UR) CATH-CULTURE IND; CULTURE IF INDICATED CATH CULTURE IND; GLUCOSE,URINE NEG (NEG); GRANULAR CAST, URINE 15 /lpf; HYALINE CAST, URINE 69 /lpf (RARE); KETONE, URINE NEG (NEG); MUCUS URINE FEW /lpf (OCC); NITRITE,URINE NEG (NEG); SQUAMOUS EPITHELIAL CELL URINE 1 /hpf (0-5); URINE COLOR DARK-YELLOW (YELLW/STRAW)
[2016-11-18] VITALS (21 sets, daily range): BP systolic 98–130; BP diastolic 51–61; PULSE 59–79; RESP 11–31; TEMP 97.9–100.9; O2SAT 93–100
[2016-11-18] MEDS ORDERED: SODIUM CHLOR 0.9% 1000 ML INJ 1,000 ML IV SCH (00:22)
[2016-11-18 00:30] LABS: LACTIC ACID GHOST NOT REPORTABLE
[2016-11-18] MEDS ORDERED: MISCELLANEOUS NURSING INFORMATION XX SCH (00:30)
[2016-11-18] MEDS ORDERED: CHLORHEXIDINE GLUCONATE 2 % 1 PACK (2 CLOTHS) TOP PRN (00:30)
[2016-11-18] MEDS ORDERED: MAGNESIUM HYDROXIDE SUSP 30 ML CUP PO PRN (00:30)
[2016-11-18] MEDS ORDERED: BISACODYL 10 MG SUPP RECTAL PRN (00:30)
[2016-11-18] MEDS ORDERED: PROCHLORPERAZINE 25 MG SUPP RECTAL PRN (00:30)
[2016-11-18] MEDS ORDERED: ONDANSETRON HCL 4 MG/2 ML VIAL IV PRN (00:30)
[2016-11-18] MEDS ORDERED: SENNOSIDES 8.6 MG TAB PO PRN (00:30)
[2016-11-18] MEDS ORDERED: SODIUM CHLORIDE 0.65% NASAL SPRAY 45 ML BTL EACH NARE PRN (00:30)
[2016-11-18] MEDS ORDERED: LACTULOSE SYRUP 20 GM/30 ML CUP PO PRN (00:30)
[2016-11-18] MEDS ORDERED: SIMETHICONE 125 MG CHEWABLE TAB PO PRN (00:30)
[2016-11-18] MEDS ORDERED: MIDAZOLAM HCL 2 MG/2 ML VIAL IV PRN (00:30)
[2016-11-18] MEDS ORDERED: METOCLOPRAMIDE HCL 10 MG/2 ML VIAL IV PRN (00:30)
[2016-11-18] MEDS ORDERED: ACETAMINOPHEN 325 MG TAB PO PRN (00:30)
--- NOTE | 2016-11-18 00:32 | HHI.HP ---
[facility] Service Critical Care Medicine Primary Care Physician James Bolden MD Admission Diagnosis acute respiratory failure Diagnosis: Travel History International Travel<30 Days: No Contact w/Intl Traveler <30 Da: No Traveled to Known Affected Are: No History of Present Illness 66-year-old male, [facility] resident, presents by ambulance because of his oxygen saturation on room air was in the 70s. They put him on a nonrebreather and placed him on CPAP and he was doing better when he started to have decline in his oxygen saturations so they proceeded with giving him Ativan and etomidate and intubating him. They also had given him nitroglycerin prior to this. Review of Systems ROS Unable to obtain patient is sedated and intubated Past Family Social History Allergies: Coded Allergies: *MDRO Multi-Drug Resistant Organism (Verified Adverse Reaction, Unknown, MRSA, 10/23/16) MRSA (toe wound) - 01/27/16; (foot) - 05/24/16 MRSA PCR Screen POSITIVE - 05/26/16 Past Medical History Chronic atrial fibrillation on Coumadin History of congestive heart failure ejection fraction on 03/2016 50-55% COPD Hypertension History of UTI Peripheral vascular disease Diabetic neuropathy Chronic pain Bilateral diabetic foot ulcers History of osteomyelitis left lower extremity Past Surgical History Cholecystectomy Tonsillectomy Reported Medications Reported Meds & Active Scripts Active Citracal + D3 Maximum (Calcium Citrate-Vitamin D) 315-250 Mg-Unit Tab 1 Tab PO BID Potassium Chloride ER (Potassium Chloride) 20 Meq Tab 20 Meq PO DAILY 30 Days Furosemide 20 Mg Tab 20 Mg PO DAILY 30 Days Flomax (Tamsulosin HCl) 0.4 Mg Cap 0.4 Mg PO DAILY 30 Days Neurontin (Gabapentin) 300 Mg Cap 300 Mg PO TID 30 Days Lipitor (Atorvastatin Calcium) 20 Mg Tab 20 Mg PO HS 30 Days Reported Furosemide Inj (Furosemide) 10 Mg/Ml Inj 20 IV PUSH Simethicone 125 Mg Cap 80 Mg PO QID PRN Vitamin C (Ascorbic Acid) 250 Mg Tab 500 Mg PO DAILY Prilosec (Omeprazole Magnesium) 20 Mg Tab PO DAILY Multi Vitamin and Mineral (Multiple Vitamins W/ Minerals) 1 Tab Tab 1 PO DAILY Cipro (Ciprofloxacin HCl) 250 Mg Tab 500 Mg PO BID Colace Clear (Docusate Sodium) 50 Mg Cap 100 Mg PO Reglan (Metoclopramide HCl) 10 Mg Tab 10 Mg PO QID Coumadin (Warfarin) 6 Mg Tab 6 Mg PO DAILY Zofran (Ondansetron HCl) 4 Mg Tab 4 Mg IM Q4HR PRN Reglan (Metoclopramide HCl) 10 Mg Tab 10 Mg PO QID Cal-[place]ev-Ari Nasal Blanket (Sodium Chloride) 0.65% Blanket 2 Blanket EACH NARE Q6HR PRN Novolin R Inj (Insulin Human Regular) 1,000 Unit/10 Ml Vial 3-15 Units SQ DIRECTED Sliding Scale: if 201-250=3 units, 251-300=5 units, 301-350=8 units, 351-400=10 units, 401+=15 units and call MD Quinones (Escitalopram Oxalate) 10 Mg Tab 10 Mg PO DAILY Levemir Flextouch Pen Inj (Insulin Detemir) 300 unit/3 ML Pen 15 Units SQ HS Coreg (Carvedilol) 3.125 Mg Tab 3.125 Mg PO Q12HR Amiodarone (Amiodarone HCl) 200 Mg Tab 200 Mg PO DAILY Active Ordered Medications Current Medications Medications (Trade) Dose Ordered Sig/Thaddeus Route PRN Reason Start Time Stop Time Status Last Admin Dose Admin Midazolam HCl (Versed Inj) 100 ml @ 0 mls/hr TITRATE IV 11/17/16 22:00 Sodium Chloride (NS Flush) 2 ml UNSCH PRN .XX FLUSH AFTER USING IV ACCESS 11/18/16 00:30 Sodium Chloride (NS Flush) 2 ml BID .XX 11/18/16 09:00 Acetaminophen (Tylenol) 650 mg Q6H PRN PO PAIN 1-10 AND/OR FEVER >101F 11/18/16 00:30 Morphine Sulfate (Morphine Inj) 2 mg Q2H PRN IV PAIN SCALE 6 TO 10 11/18/16 00:30 Famotidine (Pepcid Inj) 20 mg Q12HR IV PUSH 11/18/16 09:00 Midazolam HCl (Versed Inj) 2 mg Q1H PRN IV SEDATION 11/18/16 00:30 Artificial Tears (Tears Naturale Opth Soln) 1 drop TID EACH EYE 11/18/16 09:00 Ondansetron HCl (Zofran Inj) 4 mg Q6H PRN IV NAUSEA OR VOMITING 11/18/16 00:30 Metoclopramide HCl (Reglan Inj) 10 mg Q6H PRN IV NAUSEA OR VOMITING 11/18/16 00:30 Prochlorperazine (Compazine Supp) 25 mg Q12H PRN RECTAL NAUSEA OR VOMITING 11/18/16 00:30 Miscellaneous Information 1 Q361D XX 11/18/16 00:30 Chlorhexidine Gluconate (Chlorhexidine 2% Cloth) 3 pack Taper DAILY@04 TOP 11/18/16 04:00 11/14/17 03:59 Chlorhexidine Gluconate (Chlorhexidine 2% Cloth) 3 pack UNSCH PRN TOP HYGIENIC CARE 11/18/16 00:30 Senna/Docusate Sodium (Grace-Colace) 1 tab BID PO 11/18/16 09:00 Magnesium Hydroxide (Milk Of Magnesia Liq) 30 ml Q12H PRN PO MILD - MODERATE CONSTIPATION 11/18/16 00:30 Sennosides (Senokot) 17.2 mg Q12H PRN PO MODERATE - SEVERE CONSTIPATION 11/18/16 00:30 Bisacodyl (Dulcolax Supp) 10 mg DAILY PRN RECTAL SEVERE CONSITIPATION 11/18/16 00:30 Lactulose (Lactulose Liq) 30 ml DAILY PRN PO SEVERE CONSITIPATION 11/18/16 00:30 Amiodarone HCl (Cordarone) 200 mg DAILY PO 11/18/16 09:00 Atorvastatin Calcium (Lipitor) 20 mg HS PO 11/18/16 21:00 Carvedilol (Coreg) 3.125 mg Q12HR PO 11/18/16 09:00 Escitalopram Oxalate (Lexapro) 10 mg DAILY PO 11/18/16 09:00 Furosemide (Lasix) 20 mg DAILY PO 11/18/16 09:00 Gabapentin (Neurontin) 300 mg TID PO 11/18/16 09:00 Metoclopramide HCl (Reglan) 10 mg QID PO 11/18/16 09:00 Sodium Chloride (Cal-Nev-Ari Candelario Blanket) 2 spray Q6HR PRN EACH NARE NASAL CONGESTION 11/18/16 00:30 Simethicone (Phazyme Chew) 80 mg QID PRN PO GAS RETENTION 11/18/16 00:30 Tamsulosin HCl (Flomax) 0.4 mg DAILY PO 11/18/16 09:00 Warfarin Sodium (Coumadin) 6 mg DAILY PO 11/18/16 09:00 UNV Dextrose (D50w (Vial) Inj) 50 ml UNSCH PRN IV HYPOGLYCEMIA-SEE COMMENTS 11/18/16 00:45 Glucagon 1 mg 1 mg UNSCH PRN OTHER HYPOGLYCEMIA-SEE COMMENTS 11/18/16 00:45 Pharmacy Profile Note (Coumadin Consult Pharmacy) 0 ml @ 0 mls/hr UNSCH OTHER 11/18/16 00:45 Furosemide (Lasix Inj) 20 mg Q6H IV PUSH 11/18/16 01:45 11/18/16 19:46 UNV Family History Noncontributory Social History long-term resident wheelchair bound. No documented history of tobacco alcohol or illicit drug abuse Physical Exam Vital Signs Vital Signs Date Time Temp Pulse Resp B/P Pulse Ox O2 Delivery O2 Flow Rate FiO2 11/17/16 23:45 65 18 110/65 100 11/17/16 23:15 66 18 104/54 100 11/17/16 23:00 100 100 11/17/16 22:41 98.6 67 16 106/55 100 Ventilator 100 11/17/16 22:04 70 18 103/55 100 Ventilator 100 11/17/16 22:04 100 Ventilator 100 11/17/16 21:53 68 14 93/50 100 11/17/16 21:50 100 100 Physical Exam GENERAL: Elderly man sedated and intubated. SKIN: Warm and dry. HEAD: Normocephalic. EYES: No scleral icterus. No injection or drainage. NECK: Supple, trachea midline. No JVD or lymphadenopathy. CARDIOVASCULAR: Regular rate and rhythm without murmurs, gallops, or rubs. RESPIRATORY: Breath sounds equal bilaterally. No accessory muscle use. GASTROINTESTINAL: Abdomen soft, non-tender, nondistended. MUSCULOSKELETAL: No cyanosis, or edema. BACK: Nontender without obvious deformity. No CVA tenderness. EXTREMITIES: No clubbing or cyanosis Laboratory Laboratory Tests Test 11/17/16 11/17/16 11/17/16 22:00 22:49 22:55 White Blood Count 9.2 Red Blood Count 2.37 Hemoglobin 7.3 Hematocrit 21.8 Mean Corpuscular Volume 92.0 Mean Corpuscular Hemoglobin 30.9 Mean Corpuscular Hemoglobin 33.6 Concent Red Cell Distribution Width 16.0 Platelet Count 188 Mean Platelet Volume 8.4 Neutrophils (%) (Auto) 84.8 Lymphocytes (%) (Auto) 7.8 Monocytes (%) (Auto) 6.7 Eosinophils (%) (Auto) 0.4 Basophils (%) (Auto) 0.3 Neutrophils # (Auto) 7.8 Lymphocytes # (Auto) 0.7 Monocytes # (Auto) 0.6 Eosinophils # (Auto) 0.0 Basophils # (Auto) 0.0 CBC Comment DIFF FINAL Differential Comment Sodium Level 136 Potassium Level 5.3 Chloride Level 98 Carbon Dioxide Level 31.6 Anion Gap 6 Blood Urea Nitrogen 51 Creatinine 1.67 Estimat Glomerular Filtration 41 Rate Random Glucose 139 Lactic Acid Level 2.1 Calcium Level 8.4 Phosphorus Level 3.7 Magnesium Level 2.3 Total Bilirubin 1.2 Aspartate Amino Transf 654 (AST/SGOT) Alanine Aminotransferase 589 (ALT/SGPT) Alkaline Phosphatase 154 Total Creatine Kinase 197 Creatine Kinase MB 5.1 Troponin I 0.16 Total Protein 7.2 Albumin 2.2 Blood Gas Puncture Site RT RADIAL Blood Gas Patient Temperature 98.6 Blood Gas HCO3 28 Blood Gas Base Excess 3.4 Blood Gas Oxygen Saturation 83 Arterial Blood pH 7.38 Arterial Blood Partial 49 Pressure CO2 Arterial Blood Partial 54 Pressure O2 Arterial Blood Oxygen Content 8.9 Arterial Blood 2.0 Carboxyhemoglobin Arterial Blood Methemoglobin 0.7 Blood Gas Hemoglobin 7.6 Oxygen Delivery Device VENTILATOR Blood Gas Ventilator Setting PRVC Blood Gas Inspired Oxygen 100 Urine Color DARK-YELLOW Urine Turbidity HAZY Urine pH 5.0 Urine Specific [place] 1.020 Urine Protein 30 Urine Glucose (UA) NEG Urine Ketones NEG Urine Occult Blood MOD Urine Nitrite NEG Urine Bilirubin NEG Urine Urobilinogen 8.0 Urine Leukocyte Esterase LARGE Urine RBC 38 Urine WBC 20 Urine Squamous Epithelial 1 Cells Urine Amorphous Sediment RARE Urine Bacteria OCC Urine Hyaline Casts 69 Urine Granular Casts 15 Urine Mucus FEW Urine Yeast (Budding) FEW Microscopic Urinalysis Comment CATH-CULTURE IND Date/Time Procedure Status Source Growth 11/17/16 22:55 Urine Culture Received Urine Catheterized Urine Pending 11/17/16 22:15 Aerobic Blood Culture Received Blood Peripheral Pending 11/17/16 22:15 Anaerobic Blood Culture Received Blood Peripheral Pending Result Diagram: 11/[id number] Imaging Last 24 hours Impressions Chest X-Ray 11/17/[id number] Signed Impressions: Service Date/Time: Thursday, November 17, 2016 22:12 - CONCLUSION: 1. Endotracheal tube in satisfactory position. Bilateral airspace disease with small effusions. Cardiothoracic diagnosis is pulmonary edema. Nemesio Castañeda MD Assessment and Plan Assessment and Plan Acute on chronic respiratory failure - Acute on chronic congestive heart failure - Series of troponin - EKG - Diuresis with IV Lasix - Mechanical ventilation - SBT daily - CXR and ABG a.m. COPD - No exacerbation - No indication for steroids or antibiotics at this time - DuoNeb scheduled and when necessary Chronic atrial fibrillation - Pharmacy consult for Coumadin - Amiodarone as home meds for rate control History of congestive heart failure - ejection fraction on 03/2016 50-55% - Aggressive diuresis - Monitor troponins and EKGs Hypertension - Carvedilol Diabetic neuropathy - Gabapentin Peripheral vascular disease - Coumadin and atorvastatin DVT GI prophylaxis - Coumadin and Pepcid Critical Care: The total critical care time was 35 minutes. Time to perform other separately billable procedures was not included in the critical care time. David García MD Nov 18, 2016 00:32
[2016-11-18] MEDS ORDERED: DEXTROSE 50% IN WATER 50 ML VIAL(D50) IV PRN (00:45)
[2016-11-18] MEDS ORDERED: GLUCAGON 1 MG/ML VIAL OTHER PRN (00:45)
[2016-11-18] MEDS ORDERED: HEPARIN SODIUM - SQ 10,000 UNITS/ML VIAL SQ SCH (01:00)
[2016-11-18 02:33] LABS: BLOOD GAS BASE EXCESS 3.1 mmol/L (-2-2); BLOOD GAS CARBOXYHEMOGLOBIN 1.8 % (0-4); BLOOD GAS HCO3 28 mmol/L (22-26); BLOOD GAS METHEMOGLOBIN 0.6 % (0-2); BLOOD GAS O2 HGB SATURATION 95 % (90-100); BLOOD GAS OXYGEN CONTENT 9.9 Vol % (12.0-20.0); BLOOD GAS PCO2 48 mmHg (38-42); BLOOD GAS PO2 94 mmHG (61-120); BLOOD GAS TOTAL HGB 7.3 G/DL (12.0-16.0); TEMP CORR TO 98.6
[2016-11-18 02:34] LABS: CRITICAL VALUE NO; DRAW SITE RT BRACHIAL; FIO2 100 %; NUMBER OF ARTERIAL PUNCTURES 1; OXYGEN DEVICE VENTILATOR; STAT NO; VENT SETTINGS PRVC
[2016-11-18] MEDS: RESP: ALBUTEROL 2.5 MG/IPRATROPIUM 0.5 MG NEB (SCH) INH ×4 (02:51→19:33)
[2016-11-18] MEDS: FUROSEMIDE 20 MG/2 ML VIAL IV PUSH SCH ×4 (03:02→19:55)
[2016-11-18] MEDS ORDERED: ALBUMIN HUMAN 5% 25 GM/500 ML BOTTLE IV SCH (03:15)
[2016-11-18] MEDS: CHLORHEXIDINE GLUCONATE 2 % 1 PACK (2 CLOTHS) TOP SCH (04:00)
[2016-11-18 04:55] LABS: PROTHROMBIN TIME - PATIENT GREATER THAN 180.0 SEC (9.8-11.6)
[2016-11-18 04:58] LABS: INTERNATIONAL NORMALIZED RATIO GREATER THAN 16.0 RATIO
[2016-11-18 04:59] LABS: APTT (PATIENT) 165.5 SEC (24.3-30.1)
[2016-11-18] MEDS ORDERED: PHYTONADIONE 10 MG/ML VIAL SQ SCH (05:00)
[2016-11-18 05:40] LABS: ALT (GPT) 510 U/L (12-78); ANION GAP 8 MEQ/L (5-15); AST (GOT) 464 U/L (15-37); BLOOD UREA NITROGEN 54 MG/DL (7-18); CHLORIDE 101 MEQ/L (98-107); GLOMERULAR FILTRATION RATE 45 ML/MIN (>89); MAGNESIUM 2.3 MG/DL (1.5-2.5); SODIUM (NA) 138 MEQ/L (136-145)
[2016-11-18 05:43] LABS: ALKALINE PHOSPHATASE 136 U/L (45-117)
[2016-11-18] MEDS ORDERED: INSULIN ASPART SUPPLEMENTAL SCALE SQ SCH (07:00)
[2016-11-18 08:04] LABS: AUTOMATED NEUTROPHIL # 7.1 TH/MM3 (1.8-7.7); BASOPHIL % 0.3 % (0.0-2.0); EOSINOPHIL # 0.1 TH/MM3 (0-0.4); EOSINOPHIL % 0.7 % (0.0-4.0); HEMATOCRIT 22.8 % (39.0-51.0); HEMO FLAGS DIFF FINAL; LYMPH % 13.5 % (9.0-44.0); LYMPHOCYTE # 1.2 TH/MM3 (1.0-4.8); MEAN CELL VOLUME 91.7 FL (80.0-100.0); MEAN CORPUSCULAR HEMOGLOBIN 30.2 PG (27.0-34.0); MEAN CORPUSCULAR HGB CONC 32.9 % (32.0-36.0); MONO % 6.5 % (0.0-8.0); PLATELET COUNT 162 TH/MM3 (150-450); RED BLOOD COUNT 2.49 MIL/MM3 (4.50-5.90); RED CELL DISTRIBUTION WIDTH 15.9 % (11.6-17.2)
[2016-11-18] MEDS: cefTRIAXone INJ 1,000 MG in SODIUM CHLORIDE 0.9% INJ 100 ML IV SCH (08:07)
[2016-11-18] MEDS: TAMSULOSIN HCL 0.4 MG CAP PO SCH (08:08)
[2016-11-18] MEDS: GABAPENTIN 300 MG CAP PO SCH ×3 (08:08→17:18)
[2016-11-18] MEDS: ESCITALOPRAM OXALATE 10 MG TAB PO SCH (08:08)
[2016-11-18] MEDS: METOCLOPRAMIDE HCL 10 MG TAB PO SCH ×4 (08:08→19:55)
[2016-11-18] MEDS: DOCUSATE SODIUM 50 MG/SENNA 8.6 MG TAB PO SCH ×2 (08:08→19:55)
[2016-11-18] MEDS: CARVEDILOL 3.125 MG TAB PO SCH ×2 (08:08→19:55)
[2016-11-18] MEDS: SODIUM CHLORIDE 0.9% FLUSH 10 ML FLUSH SCH ×2 (08:09→19:56)
[2016-11-18] MEDS: ARTIFICIAL TEARS OPTH SOLN 15 ML BTL EACH EYE SCH ×3 (08:09→17:18)
[2016-11-18] MEDS: FAMOTIDINE 20 MG/2 ML VIAL IV PUSH SCH ×2 (08:09→19:55)
[2016-11-18] MEDS: FUROSEMIDE 20 MG TAB PO SCH (08:09)
[2016-11-18] MEDS ORDERED: WARFARIN SOD 6 MG TAB PO SCH (09:00)
[2016-11-18] MEDS ORDERED: AMIODARONE 200 MG TAB PO SCH (09:00)
--- NOTE | 2016-11-18 09:31 | RADRPT ---
EXAM DATE/TIME: 11/18/2016 08:04 [facility] COMPARISON: No previous studies available for comparison. INDICATIONS : Increased lab values. MEDICAL HISTORY : Congestive heart failure. Diabetes mellitus type 2. Syncope. A-fib. HTN. COPD . Pneumonia. Depression. Substance use. Chronic ulcers. MRSA. Anticoagulant therapy, Warfarin. SURGICAL HISTORY : Tonsillectomy. Cholecystectomy. Left pinky toe amputation. Left AKA. ENCOUNTER: Initial ACUITY: 1 day PAIN SCORE: Nonresponsive. LOCATION: Bilateral upper quadrant MEASUREMENTS: LIVER: 21.6 cm length COMMON DUCT: 4 mm RIGHT KIDNEY: 12.8 x 5.9 x 5.7 cm SPLEEN: 13.0 cm length FINDINGS: There are small bilateral pleural effusions. Liver is prominent without intrahepatic biliary ductal dilatation. Common duct is normal in size. Gallbladder is surgically absent. Pancreas is poorly vi sualized because of patient's body habitus. Right kidney is unremarkable. CONCLUSION: 1. Small bilateral pleural effusions. 2. Prominent somewhat sonodense liver without intrahepatic biliary ductal dilatation. Nahid Cazares MD FACR on November 18, 2016 at 9:19 Board Certified Radiologist. This report was verified electronically.
[2016-11-18 09:47] LABS: BASOPHIL # 0.1 TH/MM3 (0-0.2); BASOPHIL % 0.6 % (0.0-2.0); EOSINOPHIL # 0.2 TH/MM3 (0-0.4); EOSINOPHIL % 1.6 % (0.0-4.0); LYMPH % 9.4 % (9.0-44.0); MEAN CELL VOLUME 92.9 FL (80.0-100.0); MEAN CORPUSCULAR HEMOGLOBIN 30.8 PG (27.0-34.0); MEAN CORPUSCULAR HGB CONC 33.2 % (32.0-36.0); MONO % 12.1 % (0.0-8.0); NEUT % 76.3 % (16.0-70.0); PLATELET COUNT 149 TH/MM3 (150-450); RED BLOOD COUNT 2.19 MIL/MM3 (4.50-5.90); RED CELL DISTRIBUTION WIDTH 16.2 % (11.6-17.2); WHITE BLOOD COUNT 10.5 TH/MM3 (4.0-11.0)
[2016-11-18 09:52] LABS: HEMO FLAGS DIFF FINAL
[2016-11-18 09:55] LABS: HEMATOCRIT 20.4 % (39.0-51.0)
--- NOTE | 2016-11-18 11:09 | ECHRPT ---
Indication: Heart failure, unspecified CONCLUSIONS The left ventricular systolic function is hotnlhsf-[id number] reduced with an estimated ejection fra ction in the range of 35-40%. There is global left ventricular dysfunction. Mild concentric left ventricular hypertrophy. The right ventricular size is normal. The right ventricular systoilc function is mildly decreased. Normal atrial septal thickness. Mild thickening of the mitral valve leaflets. Calcification of both mitral valve leaflets. Trace mitral valve regurgitation. Probably trileaflet aortic valve. Aortic valve sclerosis is present. There is mild tricuspid valve regurgitation. There is estimated mild pulmonary hypertension present (range 40-50 mmHg). The pulmonary valve is not well visualized. The inferior vena cava is dilated. BP: 110 / 65 HR: 65 Rhythm: MEASUREMENTS (Male / Female) Normal Values Technical Quality:Good, Fair 2D ECHO LV Diastolic Diameter PLAX 4.6 cm 4.2 - 5.9 / 3.9 - 5.3 cm LV Systolic Diameter PLAX 4.0 cm IVS Diastolic Thickness 1.6 cm 0.6 - 1.0 / 0.6 - 0.9 cm LVPW Diastolic Thickness 1.1 cm 0.6 - 1.0 / 0.6 - 0.9 cm LV Relative Wall Thickness 0.6 RV Internal Dim ED PLAX 3.1 cm M-MODE Aortic Root Diameter MM 3.5 cm LA Systolic Diameter MM 3.7 cm LA Ao Ratio MM 1.1 AV Cusp Separation MM 2.6 cm DOPPLER Mitral E Point Velocity 76.5 cm/s Mitral A Point Velocity 49.9 cm/s Mitral E to A Ratio 1.5 LV E' Lateral Velocity 4.7 cm/s Mitral E to LV E' Lateral Ratio 16.3 LV E' Septal Velocity 7.2 cm/s Mitral E to LV E' Septal Ratio 10.6 TR Peak Velocity 278.0 cm/s TR Peak Gradient 30.9 mmHg FINDINGS LEFT VENTRICLE The left ventricular systolic function is [id number] reduced with an estimated ejection fra ction in the range of 35-40%. There is global left ventricular dysfunction. Mild concentric left ventricular hypertrophy. RIGHT VENTRICLE The right ventricular size is normal. The right ventricular systoilc function is mildly decreased. LEFT ATRIUM The left atrial size is normal. RIGHT ATRIUM The right atrial size is normal. ATRIAL SEPTUM Normal atrial septal thickness. AORTA The aortic root and proximal ascending aorta are normal in size on limited imaging. MITRAL VALVE Mild thickening of the mitral valve leaflets. Calcification of both mitral valve leaflets. Trace mitral valve regurgitation. AORTIC VALVE Probably trileaflet aortic valve. Aortic valve sclerosis is present. TRICUSPID VALVE Structurally normal tricuspid valve. There is mild tricuspid valve regurgitation. There is estimated mild pulmonary hypertension present (range 40-50 mmHg). PULMONARY VALVE The pulmonary valve is not well visualized. VESSELS The inferior vena cava is dilated. PERICARDIUM No pericardial effusion. OTHER FINDINGS IVC 2.3 Andre Montgomery MD (Electronically Signed) Final Date:18 November 2016 11:08
[2016-11-18] MEDS: INSULIN ASPART SUPPLEMENTAL SCALE SQ SCH ×2 (11:22→17:30)
[2016-11-18 11:44] LABS: INTERNATIONAL NORMALIZED RATIO 3.2 RATIO
[2016-11-18 14:44] LABS: INTERNATIONAL NORMALIZED RATIO 2.9 RATIO; PROTHROMBIN TIME - PATIENT 33.8 SEC (9.8-11.6)
[2016-11-18] MEDS ORDERED: BUMETANIDE INJ 1 MG/4 ML VIAL IV PUSH ONE (16:30)
--- NOTE | 2016-11-18 17:42 | MB ---
cc: DAVEY OLIVO MD, JAN MD DATE OF CONSULTATION 11/18/16 I have reviewed present and prior cardiac records. Unfortunately, the patient is sedated and has no accessible family members. He probably has a historic preservationist, although we do not know who. The patient is a long term resident who was admitted for worsening oxygen saturation requiring intubation. PAST MEDICAL HISTORY Complex and includes the following 1. Coronary artery disease - catheterization 01/24 showed diffuse triple vessel coronary disease. He was felt not to be a candidate for bypass surgery or intervention. 2. Hypertension 3. Hyperlipidemia 4. Severe peripheral vascular disease. 5. Chronic atrial fibrillation. 6. Prior anemia requiring transfusion. 7. Right internal carotid stenosis. 8. Osteomyelitis with prior left bmakc-rsm-hafv amputation. 9. Esophageal reflux 10. Hiatal hernia. 11. Kuhn's esophagitis. 12. TIA. 13. Cholecystectomy 14. Tonsillectomy 15. COPD. ALLERGIES Unclear. SOCIAL HISTORY/REVIEW OF SYSTEMS I cannot get a social history nor review of systems. CARDIOLOGY STUDIES Echocardiogram just done today and reviewed by myself suggested an ejection fraction of about 40%, although this was a suboptimal study. There is mitral sclerosis with trace mitral regurgitation and aortic sclerosis. IMAGING STUDIES Chest x-ray showed bilateral air space disease with small effusions. Liver ultrasound showed ___ dense liver with small bilateral pleural effusions. LABORATORY FINDINGS He is severely anemic with hematocrit of 20.4, INR 3.2 with initial INR greater than 16. Present potassium 5.0, creatinine 1.54. Liver transaminase is elevated, but decreasing. Troponin 0.16/0.24/0.12. Albumin 2.0. BNP 974. PHYSICAL EXAMINATION GENERAL: He is unresponsive. VITAL SIGNS: Afebrile. Vital signs stable otherwise. CHEST: Decreased breath sounds with occasional rhonchi. NECK: JVD normal. CARDIAC: S1-S2. ABDOMEN: Obese but benign. EXTREMITIES: Show left AKA with 2+ right lower extremity edema and ulcerations. PULSES: Carotids without bruits. Radials not felt. Femorals not felt. Pedal not felt. MEDICATIONS Medication list reviewed. ASSESSMENT/PLAN Mr. Milian presents with respiratory failure. He may have mild left ventricular dysfunction on his echocardiogram, but it was a suboptimal study. Certainly, he could have exacerbation of his COPD or even underlying pneumonia. He is overall in extremely poor condition, having been turned down for surgery or PCI with multivessel coronary disease. At this point in time I would recommend the followin. Statins 2. Transfusion if needed. 3. Diuresis. 4. DVT prophylaxis. I will leave management to the primary service. His prognosis is poor and there is really nothing more to add at this point in time. Our service will be available if needed. MD MOIRA Bailey/ /1:50 PM /5:27 PM
[2016-11-18 20:14] LABS: HEMATOCRIT 24.5 % (39.0-51.0); REVIEW FLAG FINAL
[2016-11-18] MEDS ORDERED: ATORVASTATIN 20 MG TAB PO SCH (21:00)
[2016-11-19] VITALS (22 sets, daily range): BP systolic 102–131; BP diastolic 50–62; PULSE 68–80; RESP 14–31; TEMP 98.3–100.1; O2SAT 95–100
[2016-11-19] MEDS: RESP: ALBUTEROL 2.5 MG/IPRATROPIUM 0.5 MG NEB (SCH) INH ×4 (03:42→20:02)
[2016-11-19] MEDS: CHLORHEXIDINE GLUCONATE 2 % 1 PACK (2 CLOTHS) TOP SCH (04:00)
[2016-11-19 04:18] LABS: AUTOMATED NEUTROPHIL # 8.3 TH/MM3 (1.8-7.7); BASOPHIL # 0.1 TH/MM3 (0-0.2); BASOPHIL % 0.7 % (0.0-2.0); EOSINOPHIL # 0.1 TH/MM3 (0-0.4); EOSINOPHIL % 0.5 % (0.0-4.0); HEMATOCRIT 21.9 % (39.0-51.0); HEMO FLAGS DIFF FINAL; LYMPH % 9.3 % (9.0-44.0); MEAN CELL VOLUME 88.1 FL (80.0-100.0); MEAN CORPUSCULAR HGB CONC 34.1 % (32.0-36.0); MONO % 7.8 % (0.0-8.0); NEUT % 81.7 % (16.0-70.0); PLATELET COUNT 154 TH/MM3 (150-450); RED BLOOD COUNT 2.49 MIL/MM3 (4.50-5.90); RED CELL DISTRIBUTION WIDTH 17.7 % (11.6-17.2); WHITE BLOOD COUNT 10.2 TH/MM3 (4.0-11.0)
[2016-11-19 04:24] LABS: INTERNATIONAL NORMALIZED RATIO 1.9 RATIO; PROTHROMBIN TIME - PATIENT 21.5 SEC (9.8-11.6)
[2016-11-19 04:35] LABS: ALT (GPT) 254 U/L (12-78); ANION GAP 6 MEQ/L (5-15); AST (GOT) 116 U/L (15-37); BICARBONATE 30.6 MEQ/L (21.0-32.0); BLOOD UREA NITROGEN 51 MG/DL (7-18); CHLORIDE 103 MEQ/L (98-107); GLOMERULAR FILTRATION RATE 47 ML/MIN (>89); MAGNESIUM 2.3 MG/DL (1.5-2.5); POTASSIUM 4.2 MEQ/L (3.5-5.1); SODIUM (NA) 140 MEQ/L (136-145)
[2016-11-19 04:38] LABS: ALKALINE PHOSPHATASE 152 U/L (45-117); TOTAL BILIRUBIN ADULT 1.5 MG/DL (0.2-1.0)
[2016-11-19] MEDS: INSULIN ASPART SUPPLEMENTAL SCALE SQ SCH ×4 (05:53→17:13)
--- NOTE | 2016-11-19 07:24 | HHI.CCPN ---
Subjective Remarks/Hospital Course 66-year-old male, assisted resident, presents by ambulance because of his oxygen saturation on room air was in the 70s. They put him on a nonrebreather and placed him on CPAP and he was doing better when he started to have decline in his oxygen saturations so they proceeded with giving him Ativan and etomidate and intubating him. They also had given him nitroglycerin prior to this. 11/19: Patient is sedated with Versed and intubated. Tolerated CPAP for several hrs yesterday. Received 2units PRBC and 6u FFP yesterday Hgb 7.5 this morning with INR 1.9 . T: 100.9 last night. Renal function improving with Cr: 1.48 from 1.54 Objective Vital Signs Date Time Temp Pulse Resp B/P Pulse Ox O2 Delivery O2 Flow Rate FiO2 11/19/16 06:00 72 11/19/16 04:05 97 45 11/19/16 04:00 99.2 19 117/61 11/18/16 02:03 Ventilator Intake and Output 11/18/16 11/18/16 11/19/16 08:00 16:00 00:00 Intake Total 427 ml 2287 ml 1936 ml Output Total 600 ml 1000 ml 1150 ml Balance -173 ml 1287 ml 786 ml Result Diagram: 11/19/16 0359 11/19/16 0359 Other Results Laboratory Tests Test 11/18/16 11/18/16 11/18/16 11/18/16 09:00 10:48 11:12 12:07 White Blood Count 10.5 TH/MM3 Red Blood Count 2.19 MIL/MM3 Hemoglobin 6.8 GM/DL Hematocrit 20.4 % Mean Corpuscular Volume 92.9 FL Mean Corpuscular Hemoglobin 30.8 PG Mean Corpuscular Hemoglobin 33.2 % Concent Red Cell Distribution Width 16.2 % Platelet Count 149 TH/MM3 Mean Platelet Volume 8.4 FL Neutrophils (%) (Auto) 76.3 % Lymphocytes (%) (Auto) 9.4 % Monocytes (%) (Auto) 12.1 % Eosinophils (%) (Auto) 1.6 % Basophils (%) (Auto) 0.6 % Neutrophils # (Auto) 8.0 TH/MM3 Lymphocytes # (Auto) 1.0 TH/MM3 Monocytes # (Auto) 1.3 TH/MM3 Eosinophils # (Auto) 0.2 TH/MM3 Basophils # (Auto) 0.1 TH/MM3 CBC Comment DIFF FINAL Differential Comment Crossmatch Leukocyte-Reduced Red Blood Cells Blood Bank Comment Prothrombin Time 37.0 SEC Prothromb Time International 3.2 RATIO Ratio Ammonia 21 MCMOL/L Troponin I 0.12 NG/ML Test 11/18/16 11/18/16 11/18/16 11/19/16 14:26 14:48 18:34 03:59 Prothrombin Time 33.8 SEC 21.5 SEC Prothromb Time International 2.9 RATIO 1.9 RATIO Ratio Activated Partial 53.0 SEC Thromboplast Time Blood Bank Comment Hemoglobin 8.5 GM/DL 7.5 GM/DL Hematocrit 24.5 % 21.9 % White Blood Count 10.2 TH/MM3 Red Blood Count 2.49 MIL/MM3 Mean Corpuscular Volume 88.1 FL Mean Corpuscular Hemoglobin 30.0 PG Mean Corpuscular Hemoglobin 34.1 % Concent Red Cell Distribution Width 17.7 % Platelet Count 154 TH/MM3 Mean Platelet Volume 8.2 FL Neutrophils (%) (Auto) 81.7 % Lymphocytes (%) (Auto) 9.3 % Monocytes (%) (Auto) 7.8 % Eosinophils (%) (Auto) 0.5 % Basophils (%) (Auto) 0.7 % Neutrophils # (Auto) 8.3 TH/MM3 Lymphocytes # (Auto) 1.0 TH/MM3 Monocytes # (Auto) 0.8 TH/MM3 Eosinophils # (Auto) 0.1 TH/MM3 Basophils # (Auto) 0.1 TH/MM3 CBC Comment DIFF FINAL Differential Comment Sodium Level 140 MEQ/L Potassium Level 4.2 MEQ/L Chloride Level 103 MEQ/L Carbon Dioxide Level 30.6 MEQ/L Anion Gap 6 MEQ/L Blood Urea Nitrogen 51 MG/DL Creatinine 1.48 MG/DL Estimat Glomerular Filtration 47 ML/MIN Rate Random Glucose 163 MG/DL Calcium Level 8.2 MG/DL Phosphorus Level 2.7 MG/DL Magnesium Level 2.3 MG/DL Total Bilirubin 1.5 MG/DL Aspartate Amino Transf 116 U/L (AST/SGOT) Alanine Aminotransferase 254 U/L (ALT/SGPT) Alkaline Phosphatase 152 U/L Total Protein 6.3 GM/DL Albumin 2.4 GM/DL Imaging Last Impressions Liver Ultrasound 11/18/16 0000 Signed Impressions: Service Date/Time: Friday, November 18, 2016 08:04 - CONCLUSION: 1. Small bilateral pleural effusions. 2. Prominent somewhat sonodense liver without intrahepatic biliary ductal dilatation. Nahid Cazares MD FACR Chest X-Ray 11/17/16 2155 Signed Impressions: Service Date/Time: Thursday, November 17, 2016 22:12 - CONCLUSION: 1. Endotracheal tube in satisfactory position. Bilateral airspace disease with small effusions. Cardiothoracic diagnosis is pulmonary edema. Nemesio Castañeda MD Objective Remarks GENERAL: Elderly man sedated and intubated. SKIN: Warm and dry. HEAD: Normocephalic. EYES: No scleral icterus. No injection or drainage. NECK: Supple, trachea midline. No JVD or lymphadenopathy. CARDIOVASCULAR: Regular rate and rhythm without murmurs, gallops, or rubs. RESPIRATORY: Breath sounds equal bilaterally. No accessory muscle use. GASTROINTESTINAL: Abdomen soft, non-tender, nondistended. MUSCULOSKELETAL: No cyanosis, or edema. BACK: Nontender without obvious deformity. No CVA tenderness. EXTREMITIES: No clubbing or cyanosis, Left AKA noted, Stage 4 wound RLE. Neuro: Sedated, intubated A/P Assessment and Plan Acute on chronic respiratory failure CHF decompensation Cardiomyopathy COPD Chronic atrial fibrillation Coagulopathy Anemia Hypertension Diabetic neuropathy LLE stage 4 wound Peripheral vascular disease UTI Coagulopathy 2nd Coumadin toxicity Plan Neuro: On Versed infusion for sedation. Daily sedation vacation Pulm: Continue with vent support keep sat >92%, Bronchodilators, ICU vent bundle, CPAP trials as tapan. Check CXR CV: Monitor HR and BP keep MAP>65mmHg. On Coreg 3.125 mg BID Echo showed EF 35-40%, Cards is following- Dr. Montgomery. Not a candidate for ASA or anticoagulation given severe anemia. Not on statin due to elevated LFT's. : Monitor renal function, I/O's, electrolytes replacement per protocol. Cr: 1.48 from 1.54. Change Lasix 40mg IV BID GI: On Glucerna 1.5 @60ml/hr, G eval Monitor LFT;s..trending down, Hepatitis profile pending. US liver: No iintrahepatic biliary ductal dilatation. ID: Continue with Rocephin, monitor for signs of infections ( Fever, WBC) Follow up on cxs Consult wound and Plastic surgery for open wound RLE. Heme: Monitor CBC, Coags, s/p transfusion 2units PRBC, 6u FFP, Vitamin K 10mg x1 . Will guaiac stool for Heme. Transfuse additional 1unit PRBC today, GI eval. Endo: SSI with accuchecks GI prophylaxis with Pepcid DVT prophylaxis - coagulopathic with INR 1.9 this morning Level 3 Josse Iverson MD Nov 19, 2016 07:24
[2016-11-19] MEDS ORDERED: BUMETANIDE INJ 1 MG/4 ML VIAL IV PUSH ONE (07:45)
[2016-11-19] MEDS: GABAPENTIN 300 MG CAP PO SCH ×3 (08:00→17:12)
[2016-11-19] MEDS: TAMSULOSIN HCL 0.4 MG CAP PO SCH (08:00)
[2016-11-19] MEDS: FUROSEMIDE 20 MG TAB PO SCH (08:00)
[2016-11-19] MEDS: CARVEDILOL 3.125 MG TAB PO SCH ×2 (08:00→19:29)
[2016-11-19] MEDS: ESCITALOPRAM OXALATE 10 MG TAB PO SCH (08:00)
[2016-11-19] MEDS: DOCUSATE SODIUM 50 MG/SENNA 8.6 MG TAB PO SCH ×2 (08:01→19:29)
[2016-11-19] MEDS: FAMOTIDINE 20 MG/2 ML VIAL IV PUSH SCH ×2 (08:01→19:29)
[2016-11-19] MEDS: SENNOSIDES SYRUP 8.8 MG/5 ML CUP PO SCH (08:01)
[2016-11-19] MEDS: LACTULOSE SYRUP 20 GM/30 ML CUP PO SCH ×2 (08:01→19:28)
[2016-11-19] MEDS: SODIUM CHLORIDE 0.9% FLUSH 10 ML FLUSH SCH ×2 (08:02→19:29)
[2016-11-19] MEDS: cefTRIAXone INJ 1,000 MG in SODIUM CHLORIDE 0.9% INJ 100 ML IV SCH (08:02)
[2016-11-19] MEDS: ARTIFICIAL TEARS OPTH SOLN 15 ML BTL EACH EYE SCH ×3 (08:08→17:13)
--- NOTE | 2016-11-19 09:21 | RADRPT ---
EXAM DATE/TIME: 11/19/2016 07:47 [facility] COMPARISON: CHEST SINGLE AP, November 17, 2016, 22:12. INDICATIONS : Respiratory failure. MEDICAL HISTORY : None. SURGICAL HISTORY : None. ENCOUNTER: Subsequent ACUITY: 3 days PAIN SCORE: Non-responsive. LOCATION: Bilateral chest FINDINGS: Coarse interstitial and alveolar opacities are seen in both lungs, stable in the interval. Heart is enlarged. ET tube is in good position. Nasogastric tube is across the GE junction. CONCLUSION: Stable chest with coarse interstitial and alveolar changes both lungs. Nahid Cazares MD FACR on November 19, 2016 at 9:16 Board Certified Radiologist. This report was verified electronically.
--- NOTE | 2016-11-19 09:58 | EKG ---
Date Performed: 11/17/2016 Time Performed: 22:02:20 PTAGE: 66 years EKG: Sinus rhythm ST DEVIATION AND MODERATE T-WAVE ABNORMALITY, CONSIDER ANTEROLATERAL ISCHEMIA ST DEVIATION AND MODER ATE T-WAVE ABNORMALITY, CONSIDER INFERIOR ISCHEMIA ABNORMAL ECG PREVIOUS TRACING : 10/23/2016 19.05 DOCTOR: Wes Jack Interpretating Date/Time 11/19/2016 09:47:16
--- NOTE | 2016-11-19 13:02 | RADRPT ---
EXAM DATE/TIME: 11/19/2016 12:42 [place] COMPARISON: MRI BRAIN W/O CONTRAST, June 15, 2016, 12:49. CT BRAIN W/O CONTRAST, [facility]2015, 12:55. INDICATIONS : Altered mental status. RADIATION DOSE: 42.36 CTDIvol (mGy) MEDICAL HISTORY : Cardiovascular disease. Hypertension. SURGICAL HISTORY : None. ENCOUNTER: Initial ACUITY: 1 day PAIN SCALE: Non-responsive LOCATION: Cranial TECHNIQUE: Multiple contiguous axial images were obtained of the head. Using automated exposure control and adjustment of the mA and/or kV according to patient size, radiation dose was kept as low as reasonably achievable to obtain optimal diagnostic quality images. FINDINGS: The ventricles are prominent with some cortical atrophy. Ventricular prominence is unchanged from th e MRI of 06/15/2016. There is no parenchymal hemorrhage, acute infarction or mass lesion. There are no extra-axial fluid collections appreciated. CONCLUSION: 1. Ventricular prominence as described above. This is stable in the interval. 2. There is no other significant interval change. Nahid Cazares MD FACR on November 19, 2016 at 12:52 Board Certified Radiologist. This report was verified electronically.
[2016-11-19] MEDS ORDERED: fentaNYL DRIP 250 ML IV SCH (13:30)
--- NOTE | 2016-11-19 13:36 | PD.CONS ---
History of Present Illness Service Plastic and Reconstructive Surgery Consult Requested By Dr. Calero Reason for Consult wound Primary Care Physician James Bolden MD Diagnoses: History of Present Illness Patient is a 66yo male with pulmonary edema and on the ventilator. He has a pressure ulcer of the right leg and I have been asked to evaluate the wound. He currently lives in a assisted and he is non ambulatory. Review of Systems Respiratory: COMPLAINS OF: Apneas, Cough, Snoring, Wheezing, Hemoptysis, Sputum production, Shortness of breath Neurologic: COMPLAINS OF: Abnormal gait, Headache, Localized weakness, Paresthesias, Seizures, Speech Problems, Tremor, Poor Balance Past Family Social History Allergies: Coded Allergies: *MDRO Multi-Drug Resistant Organism (Verified Adverse Reaction, Unknown, MRSA, 10/23/16) MRSA (toe wound) - 01/27/16; (foot) - 05/24/16 MRSA PCR Screen POSITIVE - 05/26/16 Past Medical History CHF, PVOD. CAD Past Surgical History Left AKA Active Ordered Medications Current Medications Medications (Trade) Dose Ordered Sig/Thaddeus Route Start Time Stop Time Status Last Admin (NS Flush) 2 ml UNSCH PRN .XX 11/18/16 00:30 (NS Flush) 2 ml BID .XX 11/18/16 09:00 11/19/16 08:02 (Tylenol) 650 mg Q6H PRN PO 11/18/16 00:30 (Morphine Inj) 2 mg Q2H PRN IV 11/18/16 00:30 (Pepcid Inj) 20 mg Q12HR IV PUSH 11/18/16 09:00 11/19/16 08:01 (Versed Inj) 2 mg Q1H PRN IV 11/18/16 00:30 (Tears Naturale Opth Soln) 1 drop TID EACH EYE 11/18/16 09:00 11/19/16 11:47 (Zofran Inj) 4 mg Q6H PRN IV 11/18/16 00:30 (Reglan Inj) 10 mg Q6H PRN IV 11/18/16 00:30 (Compazine Supp) 25 mg Q12H PRN RECTAL 11/18/16 00:30 Miscellaneous Information 1 Q361D XX 11/18/16 00:30 11/18/16 00:30 (Chlorhexidine 2% Cloth) 3 pack Taper DAILY@04 TOP 11/18/16 04:00 11/14/17 03:59 11/19/16 04:00 (Chlorhexidine 2% Cloth) 3 pack UNSCH PRN TOP 11/18/16 00:30 (Grace-Colace) 1 tab BID PO 11/18/16 09:00 11/19/16 08:01 (Milk Of Magnesia Liq) 30 ml Q12H PRN PO 11/18/16 00:30 (Senokot) 17.2 mg Q12H PRN PO 11/18/16 00:30 (Dulcolax Supp) 10 mg DAILY PRN RECTAL 11/18/16 00:30 (Lactulose Liq) 30 ml DAILY PRN PO 11/18/16 00:30 (Cordarone) 200 mg DAILY PO 11/18/16 09:00 Hold 11/18/16 08:08 (Coreg) 3.125 mg Q12HR PO 11/18/16 09:00 11/19/16 08:00 (Lexapro) 10 mg DAILY PO 11/18/16 09:00 11/19/16 08:00 (Neurontin) 300 mg TID PO 11/18/16 09:00 11/19/16 11:44 ([place]) 2 spray Q6HR PRN EACH NARE 11/18/16 00:30 (Phazyme Chew) 80 mg QID PRN PO 11/18/16 00:30 (Flomax) 0.4 mg DAILY PO 11/18/16 09:00 11/19/16 08:00 (D50w (Vial) Inj) 50 ml UNSCH PRN IV 11/18/16 00:45 (Glucagon Inj) 1 mg UNSCH PRN OTHER 11/18/16 00:45 Insulin Aspart 1 1 Q6HR SQ 11/18/16 12:00 11/19/16 11:45 (Rocephin Inj/NS Inj) 100 ml @ 200 mls/hr Q24H IV 11/18/16 08:00 11/19/16 08:02 (Senna Liq) 8.8 mg DAILY PO 11/19/16 09:00 11/19/16 08:01 Lactulose 15 ml 15 ml BID PO 11/19/16 09:00 11/19/16 08:01 (fentaNYL DRIP) 250 ml @ 0 mls/hr TITRATE IV 11/19/16 13:30 (Lasix Inj) 40 mg BID@09,18 IV PUSH 11/19/16 18:00 Family History not conrib Social History lives in a halfway Physical Exam Vital Signs Vital Signs Date Time Temp Pulse Resp B/P Pulse Ox O2 Delivery O2 Flow Rate FiO2 11/19/16 12:57 40 11/19/16 12:57 98 40 11/19/16 12:30 100 100 11/19/16 12:00 40 11/19/16 12:00 79 11/19/16 12:00 99.5 79 31 122/59 96 11/19/16 10:20 99.5 80 31 122/57 95 11/19/16 10:05 99.3 80 30 131/62 96 11/19/16 10:00 80 11/19/16 08:00 99.3 73 20 107/56 97 11/19/16 08:00 78 11/19/16 08:00 40 11/19/16 07:37 97 45 11/19/16 06:00 72 11/19/16 04:05 97 45 11/19/16 04:00 99.2 71 19 117/61 97 11/19/16 04:00 71 11/19/16 04:00 45 11/19/16 02:00 69 11/19/16 01:40 96 45 11/19/16 00:00 68 14 102/50 95 11/19/16 00:00 99.1 68 14 102/50 95 11/19/16 00:00 45 11/19/16 00:00 68 11/18/16 22:04 96 45 11/18/16 22:00 72 11/18/16 20:00 100.9 78 23 130/61 95 11/18/16 20:00 78 11/18/16 20:00 45 11/18/16 19:35 93 45 11/18/16 18:00 78 11/18/16 16:00 45 11/18/16 16:00 99.5 72 31 103/57 95 11/18/16 16:00 79 11/18/16 15:54 93 45 11/18/16 14:00 77 Physical Exam GENERAL: This is a well-nourished, well-developed patient, in no apparent distress. SKIN: 30cm open wound of the right lateral leg with dry gangrene HEAD: Atraumatic. Normocephalic. No temporal or scalp tenderness. EYES: Pupils equal round and reactive. Extraocular motions intact. No scleral icterus. No injection or drainage. ENT: Nose without bleeding, purulent drainage or septal hematoma. Throat without erythema, tonsillar hypertrophy or exudate. Uvula midline. Airway patent. NECK: Trachea midline. No JVD or lymphadenopathy. Supple, nontender, no meningeal signs. CARDIOVASCULAR: Regular rate and rhythm without murmurs, gallops, or rubs. RESPIRATORY: On a ventilator GASTROINTESTINAL: Abdomen soft, non-tender, nondistended. No hepato-splenomegaly , or palpable masses. No guarding. MUSCULOSKELETAL: Extremities without clubbing, cyanosis, or edema. No joint tenderness, effusion, or edema noted. No calf tenderness. Negative Homans sign bilaterally. NEUROLOGICAL: Intubated and sedated Pulse: No palpable right lower extremity pulses Laboratory Laboratory Tests Test 11/18/16 11/18/16 11/18/16 11/19/16 14:26 14:48 18:34 03:59 Prothrombin Time 33.8 21.5 Prothromb Time International 2.9 1.9 Ratio Activated Partial 53.0 Thromboplast Time Blood Bank Comment Hemoglobin 8.5 7.5 Hematocrit 24.5 21.9 White Blood Count 10.2 Red Blood Count 2.49 Mean Corpuscular Volume 88.1 Mean Corpuscular Hemoglobin 30.0 Mean Corpuscular Hemoglobin 34.1 Concent Red Cell Distribution Width 17.7 Platelet Count 154 Mean Platelet Volume 8.2 Neutrophils (%) (Auto) 81.7 Lymphocytes (%) (Auto) 9.3 Monocytes (%) (Auto) 7.8 Eosinophils (%) (Auto) 0.5 Basophils (%) (Auto) 0.7 Neutrophils # (Auto) 8.3 Lymphocytes # (Auto) 1.0 Monocytes # (Auto) 0.8 Eosinophils # (Auto) 0.1 Basophils # (Auto) 0.1 CBC Comment DIFF FINAL Differential Comment Sodium Level 140 Potassium Level 4.2 Chloride Level 103 Carbon Dioxide Level 30.6 Anion Gap 6 Blood Urea Nitrogen 51 Creatinine 1.48 Estimat Glomerular Filtration 47 Rate Random Glucose 163 Calcium Level 8.2 Phosphorus Level 2.7 Magnesium Level 2.3 Total Bilirubin 1.5 Aspartate Amino Transf 116 (AST/SGOT) Alanine Aminotransferase 254 (ALT/SGPT) Alkaline Phosphatase 152 Total Protein 6.3 Albumin 2.4 Test 11/19/16 07:47 Blood Type A POSITIVE Crossmatch Leukocyte-Reduced Red Blood Cells Blood Bank Comment Date/Time Procedure Status Source Growth 11/18/16 18:00 Gram Stain - Final Resulted Wound Leg 11/18/16 18:00 Wound Culture Resulted Wound Leg Pending 11/18/16 03:33 Aerobic Blood Culture - Preliminary Resulted Blood Peripheral NO GROWTH IN 1 DAY 11/18/16 03:33 Anaerobic Blood Culture - Preliminary Resulted Blood Peripheral NO GROWTH IN 1 DAY 11/18/16 00:15 Influenza Types A,B Antigen (FLAVIA) - Final Complete Nasal Aspirate NEGATIVE FOR FLU A AND B ANTIGEN.... 11/17/16 22:55 Urine Culture - Preliminary Resulted Urine Catheterized Urine Group D Enterococcus Yeast Species Result Diagram: 11/19/16 0359 11/19/16 0359 Assessment and Plan Assessment and Plan Patient is a 66yo with PVOD and a non healing pressure ulcer of the right leg. I do not recommend surgical management of this wound until he has a vascular workup. 1. Vascular Consult to evaluate PVOD of the right LE. 2. Local wound care with Santyl wet to dry dressings. Supriya Jensen MD Nov 19, 2016 13:36
[2016-11-19 15:29] LABS: HEMATOCRIT 25.9 % (39.0-51.0); REVIEW FLAG FINAL
[2016-11-19] MEDS: FUROSEMIDE 40 MG/4 ML VIAL IV PUSH SCH (17:13)
--- NOTE | 2016-11-19 20:18 | PD.CAR.PN ---
CVT Progress Note Subjective/Hospital Course: Referral received Full consult [facility] Objective: Vital Signs Date Time Temp Pulse Resp B/P Pulse Ox O2 Delivery O2 Flow Rate FiO2 11/19/16 18:00 72 11/19/16 16:00 69 11/19/16 16:00 40 11/19/16 16:00 98.3 70 15 112/57 97 11/19/16 15:00 98 40 11/19/16 14:00 69 11/19/16 12:57 40 11/19/16 12:57 98 40 11/19/16 12:30 100 100 11/19/16 12:00 40 11/19/16 12:00 79 11/19/16 12:00 99.5 79 31 122/59 96 11/19/16 10:20 99.5 80 31 122/57 95 11/19/16 10:05 99.3 80 30 131/62 96 11/19/16 10:00 80 11/19/16 08:00 99.3 73 20 107/56 97 11/19/16 08:00 78 11/19/16 08:00 40 11/19/16 07:37 97 45 11/19/16 06:00 72 11/19/16 04:05 97 45 11/19/16 04:00 99.2 71 19 117/61 97 11/19/16 04:00 71 11/19/16 04:00 45 11/19/16 02:00 69 11/19/16 01:40 96 45 11/19/16 00:00 68 14 102/50 95 11/19/16 00:00 99.1 68 14 102/50 95 11/19/16 00:00 45 11/19/16 00:00 68 11/18/16 22:04 96 45 11/18/16 22:00 72 Labs: Laboratory Tests Test 11/19/16 14:50 Hemoglobin 8.5 GM/DL (13.0-17.0) Hematocrit 25.9 % (39.0-51.0) Result Diagram: 11/19/16 1450 11/19/16 0359 Dawson Johansen MD Nov 19, 2016 20:18
--- NOTE | 2016-11-19 20:49 | PD.CONS ---
HPI History of Present Illness This is a 66 year old male who is intubated and is unable to provide much in the way of history and my information was obtained through chart review we are asked to see this patient due to anemia and fluctuating hemoglobin apparently the patient is a half-way resident he was found to have a low saturation and so he was transferred via ambulance [facility] Past Medical History Chronic atrial fibrillation on Coumadin History of congestive heart failure ejection fraction on 03/2016 50-55% COPD Hypertension History of UTI Peripheral vascular disease Diabetic neuropathy Chronic pain Bilateral diabetic foot ulcers History of osteomyelitis left lower extremity Past Surgical History Cholecystectomy Tonsillectomy Coded Allergies: *MDRO Multi-Drug Resistant Organism (Verified Adverse Reaction, Unknown, MRSA, 10/23/16) MRSA (toe wound) - 01/27/16; (foot) - 05/24/16 MRSA PCR Screen POSITIVE - 05/26/16 Medications Citracal + D3 Maximum (Calcium Citrate-Vitamin D) 315-250 Mg-Unit Tab 1 Tab PO BID Potassium Chloride ER (Potassium Chloride) 20 Meq Tab 20 Meq PO DAILY 30 Days Furosemide 20 Mg Tab 20 Mg PO DAILY 30 Days Flomax (Tamsulosin HCl) 0.4 Mg Cap 0.4 Mg PO DAILY 30 Days Neurontin (Gabapentin) 300 Mg Cap 300 Mg PO TID 30 Days Lipitor (Atorvastatin Calcium) 20 Mg Tab 20 Mg PO HS 30 Days Furosemide Inj (Furosemide) 10 Mg/Ml Inj 20 IV PUSH Simethicone 125 Mg Cap 80 Mg PO QID PRN Vitamin C (Ascorbic Acid) 250 Mg Tab 500 Mg PO DAILY Prilosec (Omeprazole Magnesium) 20 Mg Tab PO DAILY Multi Vitamin and Mineral (Multiple Vitamins W/ Minerals) 1 Tab Tab 1 PO DAILY Cipro (Ciprofloxacin HCl) 250 Mg Tab 500 Mg PO BID Colace Clear (Docusate Sodium) 50 Mg Cap 100 Mg PO Reglan (Metoclopramide HCl) 10 Mg Tab 10 Mg PO QID Coumadin (Warfarin) 6 Mg Tab 6 Mg PO DAILY Zofran (Ondansetron HCl) 4 Mg Tab 4 Mg IM Q4HR PRN Reglan (Metoclopramide HCl) 10 Mg Tab 10 Mg PO QID [place] Nasal [place] (Sodium Chloride) 0.65% [place] 2 [place] EACH NARE Q6HR PRN Novolin R Inj (Insulin Human Regular) 1,000 Unit/10 Ml Vial 3-15 Units SQ DIRECTED Sliding Scale: if 201-250=3 units, 251-300=5 units, 301-350=8 units, 351-400=10 units, 401+=15 units and call MD Quinones (Escitalopram Oxalate) 10 Mg Tab 10 Mg PO DAILY Levemir Flextouch Pen Inj (Insulin Detemir) 300 unit/3 ML Pen 15 Units SQ HS Coreg (Carvedilol) 3.125 Mg Tab 3.125 Mg PO Q12HR Amiodarone (Amiodarone HCl) 200 Mg Tab 200 Mg PO DAILY Family History Noncontributory Social History None Review of Systems ROS Unobtainable GI Exam Vitals I&O Vital Signs Date Time Temp Pulse Resp B/P Pulse Ox O2 Delivery O2 Flow Rate FiO2 11/19/16 18:00 72 11/19/16 16:00 69 11/19/16 16:00 40 11/19/16 16:00 98.3 70 15 112/57 97 11/19/16 15:00 98 40 11/19/16 14:00 69 11/19/16 12:57 40 11/19/16 12:57 98 40 11/19/16 12:30 100 100 11/19/16 12:00 40 11/19/16 12:00 79 11/19/16 12:00 99.5 79 31 122/59 96 11/19/16 10:20 99.5 80 31 122/57 95 11/19/16 10:05 99.3 80 30 131/62 96 11/19/16 10:00 80 11/19/16 08:00 99.3 73 20 107/56 97 11/19/16 08:00 78 11/19/16 08:00 40 11/19/16 07:37 97 45 11/19/16 06:00 72 11/19/16 04:05 97 45 11/19/16 04:00 99.2 71 19 117/61 97 11/19/16 04:00 71 11/19/16 04:00 45 11/19/16 02:00 69 11/19/16 01:40 96 45 11/19/16 00:00 68 14 102/50 95 11/19/16 00:00 99.1 68 14 102/50 95 11/19/16 00:00 45 11/19/16 00:00 68 11/18/16 22:04 96 45 11/18/16 22:00 72 I/O 11/18/16 11/18/16 11/18/16 11/19/16 11/19/16 11/19/16 07:00 15:00 23:00 07:00 15:00 23:00 Intake Total 427 ml 2287 ml 1936 ml 799 ml 1076 ml Output Total 600 ml 1000 ml 1150 ml 300 ml 800 ml Balance -173 ml 1287 ml 786 ml 499 ml 276 ml Intake IV Total 427 ml 670 ml 1283 ml 246 ml 109 ml Tube Feeding 147 ml 453 ml 453 ml 497 ml Packed Cells 350 ml FFP 1220 ml Other 250 ml 200 ml 100 ml 120 ml Output Urine Total 600 ml 1000 ml 1150 ml 300 ml 800 ml Stool Total 0 ml # Bowel Movements 0 0 0 0 Imaging Last [address] 11/19/16 0000 Signed Impressions: Service Date/Time: Saturday, November 19, 2016 12:42 - CONCLUSION: 1. Ventricular prominence as described above. This is stable in the interval. 2. There is no other significant interval change. Nahid Cazares MD FACR Chest X-Ray 11/19/16 0000 Signed Impressions: Service Date/Time: Saturday, November 19, 2016 07:47 - CONCLUSION: Stable chest with coarse interstitial and alveolar changes both lungs. Nahid Cazares MD FACR Liver Ultrasound 11/18/16 0000 Signed Impressions: Service Date/Time: Friday, November 18, 2016 08:04 - CONCLUSION: 1. Small bilateral pleural effusions. 2. Prominent somewhat sonodense liver without intrahepatic biliary ductal dilatation. Nahid Cazares MD FACR Chest X-Ray 11/17/16 2155 Signed Impressions: Service Date/Time: Thursday, November 17, 2016 22:12 - CONCLUSION: 1. Endotracheal tube in satisfactory position. Bilateral airspace disease with small effusions. Cardiothoracic diagnosis is pulmonary edema. Nemesio Castañeda MD Laboratory Test 11/19/16 11/19/16 11/19/16 03:59 07:47 14:50 White Blood Count 10.2 TH/MM3 Red Blood Count 2.49 MIL/MM3 Hemoglobin 7.5 GM/DL 8.5 GM/DL Hematocrit 21.9 % 25.9 % Mean Corpuscular Volume 88.1 FL Mean Corpuscular Hemoglobin 30.0 PG Mean Corpuscular Hemoglobin 34.1 % Concent Red Cell Distribution Width 17.7 % Platelet Count 154 TH/MM3 Mean Platelet Volume 8.2 FL Neutrophils (%) (Auto) 81.7 % Lymphocytes (%) (Auto) 9.3 % Monocytes (%) (Auto) 7.8 % Eosinophils (%) (Auto) 0.5 % Basophils (%) (Auto) 0.7 % Neutrophils # (Auto) 8.3 TH/MM3 Lymphocytes # (Auto) 1.0 TH/MM3 Monocytes # (Auto) 0.8 TH/MM3 Eosinophils # (Auto) 0.1 TH/MM3 Basophils # (Auto) 0.1 TH/MM3 CBC Comment DIFF FINAL Differential Comment Prothrombin Time 21.5 SEC Prothromb Time International 1.9 RATIO Ratio Sodium Level 140 MEQ/L Potassium Level 4.2 MEQ/L Chloride Level 103 MEQ/L Carbon Dioxide Level 30.6 MEQ/L Anion Gap 6 MEQ/L Blood Urea Nitrogen 51 MG/DL Creatinine 1.48 MG/DL Estimat Glomerular Filtration 47 ML/MIN Rate Random Glucose 163 MG/DL Calcium Level 8.2 MG/DL Phosphorus Level 2.7 MG/DL Magnesium Level 2.3 MG/DL Total Bilirubin 1.5 MG/DL Aspartate Amino Transf 116 U/L (AST/SGOT) Alanine Aminotransferase 254 U/L (ALT/SGPT) Alkaline Phosphatase 152 U/L Total Protein 6.3 GM/DL Albumin 2.4 GM/DL Blood Type A POSITIVE Crossmatch Leukocyte-Reduced Red Blood Cells Blood Bank Comment Date/Time Procedure Status Source Growth 11/18/16 18:00 Gram Stain - Final Resulted Wound Leg 11/18/16 18:00 Wound Culture - Preliminary Resulted Wound Leg 11/18/16 03:33 Aerobic Blood Culture - Preliminary Resulted Blood Peripheral NO GROWTH IN 1 DAY 11/18/16 03:33 Anaerobic Blood Culture - Preliminary Resulted Blood Peripheral NO GROWTH IN 1 DAY 11/18/16 00:15 Influenza Types A,B Antigen (FLAVIA) - Final Complete Nasal Aspirate NEGATIVE FOR FLU A AND B ANTIGEN.... 11/17/16 22:55 Urine Culture - Preliminary Resulted Urine Catheterized Urine Group D Enterococcus Yeast Species Physical Examination HEENT: normocephalic; atraumatic; no jaundice. Throat is clear. Intubated NECK: Neck is supple, no JVD, no lymphadenopathy. CHEST: Chest is clear to auscultation and percussion. CARDIAC: Regular rate and rhythm with no murmur gallop or rubs. ABDOMEN: Soft, nondistended, nontender; no hepatosplenomegaly; bowel sounds are present in all four quadrants. EXTREMITIES: No clubbing, cyanosis, or edema. Left AKA right lower extremity wounds SKIN: Normal; no rash; no jaundice. LAB AID: Intubated unresponsive Assessment and Plan Plan Anemia probably multifactorial relating to chronic disease malnutrition open wounds No evidence of any active GI bleed Agree with current supportive care Monitor labs and transfuse as needed Patient is apparently a high risk for surgery and procedures from a cardiovascular standpoint and appears to be with poor prognosis overall Not much to add from a GI standpoint We will sign off but please reconsult as needed Raul Link MD Nov 19, 2016 20:49
[2016-11-20] VITALS (18 sets, daily range): BP systolic 102–124; BP diastolic 53–58; PULSE 57–72; RESP 14–22; TEMP 98.1–101.7; O2SAT 97–100
[2016-11-20] MEDS: RESP: ALBUTEROL 2.5 MG/IPRATROPIUM 0.5 MG NEB (SCH) INH ×4 (01:15→19:28)
[2016-11-20] MEDS: CHLORHEXIDINE GLUCONATE 2 % 1 PACK (2 CLOTHS) TOP SCH (04:00)
[2016-11-20] MEDS: INSULIN ASPART SUPPLEMENTAL SCALE SQ SCH ×4 (06:00→17:43)
[2016-11-20 06:48] LABS: AUTOMATED NEUTROPHIL # 8.4 TH/MM3 (1.8-7.7); BASOPHIL % 0.3 % (0.0-2.0); EOSINOPHIL # 0.1 TH/MM3 (0-0.4); EOSINOPHIL % 0.8 % (0.0-4.0); HEMATOCRIT 26.4 % (39.0-51.0); HEMO FLAGS DIFF FINAL; LYMPH % 8.3 % (9.0-44.0); LYMPHOCYTE # 0.8 TH/MM3 (1.0-4.8); MEAN CELL VOLUME 88.4 FL (80.0-100.0); MEAN CORPUSCULAR HEMOGLOBIN 30.1 PG (27.0-34.0); MEAN CORPUSCULAR HGB CONC 34.1 % (32.0-36.0); MONO % 7.8 % (0.0-8.0); NEUT % 82.8 % (16.0-70.0); PLATELET COUNT 163 TH/MM3 (150-450); RED BLOOD COUNT 2.99 MIL/MM3 (4.50-5.90); RED CELL DISTRIBUTION WIDTH 17.2 % (11.6-17.2); WHITE BLOOD COUNT 10.2 TH/MM3 (4.0-11.0)
[2016-11-20 07:07] LABS: ANION GAP 8 MEQ/L (5-15); AST (GOT) 40 U/L (15-37); BLOOD UREA NITROGEN 51 MG/DL (7-18); CHLORIDE 101 MEQ/L (98-107); GLOMERULAR FILTRATION RATE 53 ML/MIN (>89); POTASSIUM 3.8 MEQ/L (3.5-5.1); SODIUM (NA) 143 MEQ/L (136-145)
[2016-11-20 07:08] LABS: ALT (GPT) 172 U/L (12-78)
[2016-11-20 07:10] LABS: ALKALINE PHOSPHATASE 129 U/L (45-117); TOTAL BILIRUBIN ADULT 1.1 MG/DL (0.2-1.0)
--- NOTE | 2016-11-20 07:17 | HHI.CCPN ---
Subjective Remarks/Hospital Course 66-year-old male, [facility] resident, presents by ambulance because of his oxygen saturation on room air was in the 70s. They put him on a nonrebreather and placed him on CPAP and he was doing better when he started to have decline in his oxygen saturations so they proceeded with giving him Ativan and etomidate and intubating him. They also had given him nitroglycerin prior to this. 11/19: Patient is sedated with Versed and intubated. Tolerated CPAP for several hrs yesterday. Received 2units PRBC and 6u FFP yesterday Hgb 7.5 this morning with INR 1.9 . T: 100.9 last night. Renal function improving with Cr: 1.48 from 1.54 11/20 Patient is off sedation remains intubated. CT brain yesterday showed no acute findings. Afebrile. Hgb 9.0 this morning. Objective Vital Signs Date Time Temp Pulse Resp B/P Pulse Ox O2 Delivery O2 Flow Rate FiO2 11/20/16 06:00 66 11/20/16 04:00 99.8 22 121/58 97 11/20/16 04:00 40 11/18/16 02:03 Ventilator Intake and Output 11/19/16 11/19/16 11/20/16 08:00 16:00 00:00 Intake Total 799 ml 1076 ml 544 ml Output Total 300 ml 800 ml 1300 ml Balance 499 ml 276 ml -756 ml Result Diagram: 11/20/16 0506 11/20/16 0506 Other Results Laboratory Tests Test 11/19/16 11/19/16 11/20/16 07:47 14:50 05:06 Blood Type A POSITIVE Crossmatch Leukocyte-Reduced Red Blood Cells Blood Bank Comment Hemoglobin 8.5 GM/DL 9.0 GM/DL Hematocrit 25.9 % 26.4 % White Blood Count 10.2 TH/MM3 Red Blood Count 2.99 MIL/MM3 Mean Corpuscular Volume 88.4 FL Mean Corpuscular Hemoglobin 30.1 PG Mean Corpuscular Hemoglobin 34.1 % Concent Red Cell Distribution Width 17.2 % Platelet Count 163 TH/MM3 Mean Platelet Volume 8.5 FL Neutrophils (%) (Auto) 82.8 % Lymphocytes (%) (Auto) 8.3 % Monocytes (%) (Auto) 7.8 % Eosinophils (%) (Auto) 0.8 % Basophils (%) (Auto) 0.3 % Neutrophils # (Auto) 8.4 TH/MM3 Lymphocytes # (Auto) 0.8 TH/MM3 Monocytes # (Auto) 0.8 TH/MM3 Eosinophils # (Auto) 0.1 TH/MM3 Basophils # (Auto) 0.0 TH/MM3 CBC Comment DIFF FINAL Differential Comment Sodium Level 143 MEQ/L Potassium Level 3.8 MEQ/L Chloride Level 101 MEQ/L Carbon Dioxide Level 34.0 MEQ/L Anion Gap 8 MEQ/L Blood Urea Nitrogen 51 MG/DL Creatinine 1.33 MG/DL Estimat Glomerular Filtration 53 ML/MIN Rate Random Glucose 135 MG/DL Calcium Level 7.8 MG/DL Aspartate Amino Transf 40 U/L (AST/SGOT) Alanine Aminotransferase 172 U/L (ALT/SGPT) Albumin 2.2 GM/DL Imaging Last Impressions Head CT 11/19/16 0000 Signed Impressions: Service Date/Time: Saturday, November 19, 2016 12:42 - CONCLUSION: 1. Ventricular prominence as described above. This is stable in the interval. 2. There is no other significant interval change. Nahid Cazares MD FACR Chest X-Ray 11/19/16 0000 Signed Impressions: Service Date/Time: Saturday, November 19, 2016 07:47 - CONCLUSION: Stable chest with coarse interstitial and alveolar changes both lungs. Nahid Cazares MD FACR Liver Ultrasound 11/18/16 0000 Signed Impressions: Service Date/Time: Friday, November 18, 2016 08:04 - CONCLUSION: 1. Small bilateral pleural effusions. 2. Prominent somewhat sonodense liver without intrahepatic biliary ductal dilatation. Nahid Cazares MD FACR Objective Remarks GENERAL: Elderly man sedated and intubated. SKIN: Warm and dry. HEAD: Normocephalic. EYES: No scleral icterus. No injection or drainage. NECK: Supple, trachea midline. No JVD or lymphadenopathy. CARDIOVASCULAR: Regular rate and rhythm without murmurs, gallops, or rubs. RESPIRATORY: Breath sounds equal bilaterally. No accessory muscle use. GASTROINTESTINAL: Abdomen soft, non-tender, nondistended. MUSCULOSKELETAL: No cyanosis, or edema. BACK: Nontender without obvious deformity. No CVA tenderness. EXTREMITIES: No clubbing or cyanosis, Left AKA noted, Stage 4 wound RLE. Neuro: intubated A/P Assessment and Plan Acute on chronic respiratory failure CHF decompensation Cardiomyopathy COPD Chronic atrial fibrillation Coagulopathy Anemia Hypertension Diabetic neuropathy LLE stage 4 wound Peripheral vascular disease UTI Coagulopathy 2nd Coumadin toxicity Plan Neuro: Off sedation. Monitor neuro status. 11/19 Ct brain: No acute findings. Pulm: Continue with vent support keep sat >92%, Bronchodilators, ICU vent bundle, CPAP trials as tapan. CV: Monitor HR and BP keep MAP>65mmHg. On Coreg 3.125 mg BID Echo showed EF 35-40%, Cards is following- Dr. Montgomery. Not a candidate for ASA or anticoagulation given severe anemia. Not on statin due to elevated LFT's. : Monitor renal function, I/O's, electrolytes replacement per protocol. Cr: 1.33 today from 1.48 , UO:2600ml in 24 hrs, on Lasix 40mg IV BID GI: On Glucerna 1.5 @60ml/hr, G is following Monitor LFT;s..trending down, Hepatitis profile pending. US liver: No intrahepatic biliary ductal dilatation. ID: Change Rocephin to Zosyn, add Diflucan, monitor for signs of infections ( Fever, WBC) Consult wound care, Plastic and vascular surgery are following 11/17 Sputum cx: Proteus, 11/17 Urine cx: Group D enterococcus and Yeast. Heme: Monitor CBC, Coags, s/p transfusion 2units PRBC, 6u FFP, Vitamin K 10mg x1 on arrival s/p transfusion 1unit PRBC 11/19 Endo: SSI with accuchecks GI prophylaxis with Pepcid DVT prophylaxis - coagulopathic with INR 1.9 Level 3 Josse Iverson MD Nov 20, 2016 07:17
[2016-11-20] MEDS: SENNOSIDES SYRUP 8.8 MG/5 ML CUP PO SCH (07:32)
[2016-11-20] MEDS: LACTULOSE SYRUP 20 GM/30 ML CUP PO SCH ×2 (07:33→20:16)
[2016-11-20] MEDS: CARVEDILOL 3.125 MG TAB PO SCH ×2 (07:33→20:15)
[2016-11-20] MEDS: GABAPENTIN 300 MG CAP PO SCH ×3 (07:33→17:43)
[2016-11-20] MEDS: ESCITALOPRAM OXALATE 10 MG TAB PO SCH (07:33)
[2016-11-20] MEDS: DOCUSATE SODIUM 50 MG/SENNA 8.6 MG TAB PO SCH ×2 (07:33→20:16)
[2016-11-20] MEDS: FAMOTIDINE 20 MG/2 ML VIAL IV PUSH SCH ×2 (07:34→20:16)
[2016-11-20] MEDS: SODIUM CHLORIDE 0.9% FLUSH 10 ML FLUSH SCH ×2 (07:34→20:16)
[2016-11-20] MEDS: ARTIFICIAL TEARS OPTH SOLN 15 ML BTL EACH EYE SCH ×3 (07:34→17:43)
[2016-11-20] MEDS: FUROSEMIDE 40 MG/4 ML VIAL IV PUSH SCH ×2 (07:34→17:43)
[2016-11-20] MEDS: PIPERACIL-TAZO 3.375 GM PREMIX 50 ML IV SCH ×3 (07:40→20:15)
[2016-11-20] MEDS: TAMSULOSIN HCL 0.4 MG CAP PO SCH (07:40)
[2016-11-20] MEDS: FLUCONAZOLE 100 MG TAB PO SCH (07:41)
[2016-11-20 08:47] LABS: INTERNATIONAL NORMALIZED RATIO 1.7 RATIO; PROTHROMBIN TIME - PATIENT 19.3 SEC (9.8-11.6)
--- NOTE | 2016-11-20 17:58 | PD.WCN.NOT ---
Wound Consult Description: Mina seen on 5th floor [facility] for evaluation of pressure ulcer to buttock. Patient also has draining wound to R heel. Removed saturated dressing in place to R heel to reveal stage 3 pressure injury. Wound presents with ~60% pink tissue,~30% red tissue and~10% yellow tissue. Wound is draining moderate sero- sanguinous drainage. Cleansed wound with normal saline and applied ABD pad in place secured with rolled gauze and tape. Patient turned to R side with assistance of TIEN escobedo [facility], and Christine CHAUHAN [facility]. Assessed stage 2 pressure injury to coccyx with macerated, denuded skin noted to periwound. . Cleansed wound with wound cleanser.Thick layer of barrier cream applied. Communicated with: TIEN Escobedo, TIEN King, supercharge repair supervisor, and Call placed to Doctor Abdias for orders Recommendation: Please cleanse buttock area with soap and water gently apply thick layer of calazime barrier cream over buttock area and stage 2 pressure injury and Leave open to air. Cleanse R heel pressure injury with normal saline or wound cleanser and apply optilock dressing over wound bed and secure with rolled gauze and tape.Please change dressing every other day or PRN if saturated or dislodged. Carey Iyer CRN Nov 20, 2016 17:58
[2016-11-21] VITALS (26 sets, daily range): BP systolic 94–123; BP diastolic 47–62; PULSE 60–72; RESP 17–33; TEMP 98.7–99.5; O2SAT 35–100
[2016-11-21] MEDS: PIPERACIL-TAZO 3.375 GM PREMIX 50 ML IV SCH ×2 (00:29→07:52)
[2016-11-21] MEDS: RESP: ALBUTEROL 2.5 MG/IPRATROPIUM 0.5 MG NEB (SCH) INH ×4 (03:27→20:49)
[2016-11-21] MEDS: CHLORHEXIDINE GLUCONATE 2 % 1 PACK (2 CLOTHS) TOP SCH (04:00)
[2016-11-21] MEDS: INSULIN ASPART SUPPLEMENTAL SCALE SQ SCH ×4 (05:59→17:00)
[2016-11-21 06:05] LABS: AUTOMATED NEUTROPHIL # 9.1 TH/MM3 (1.8-7.7); BASOPHIL % 0.4 % (0.0-2.0); EOSINOPHIL # 0.3 TH/MM3 (0-0.4); EOSINOPHIL % 2.5 % (0.0-4.0); HEMATOCRIT 29.5 % (39.0-51.0); LYMPH % 6.1 % (9.0-44.0); LYMPHOCYTE # 0.7 TH/MM3 (1.0-4.8); MEAN CELL VOLUME 90.3 FL (80.0-100.0); MEAN CORPUSCULAR HEMOGLOBIN 29.3 PG (27.0-34.0); MEAN CORPUSCULAR HGB CONC 32.4 % (32.0-36.0); PLATELET COUNT 168 TH/MM3 (150-450); RED BLOOD COUNT 3.27 MIL/MM3 (4.50-5.90); RED CELL DISTRIBUTION WIDTH 16.5 % (11.6-17.2); WHITE BLOOD COUNT 10.9 TH/MM3 (4.0-11.0)
[2016-11-21 06:08] LABS: HEMO FLAGS AUTO DIFF
[2016-11-21 06:19] LABS: ANION GAP 9 MEQ/L (5-15); AST (GOT) 27 U/L (15-37); BICARBONATE 33.3 MEQ/L (21.0-32.0); BLOOD UREA NITROGEN 52 MG/DL (7-18); CHLORIDE 99 MEQ/L (98-107); GLOMERULAR FILTRATION RATE 61 ML/MIN (>89); MAGNESIUM 2.8 MG/DL (1.5-2.5); POTASSIUM 4.2 MEQ/L (3.5-5.1); SODIUM (NA) 141 MEQ/L (136-145)
[2016-11-21 06:21] LABS: ALT (GPT) 122 U/L (12-78)
[2016-11-21 06:23] LABS: ALKALINE PHOSPHATASE 120 U/L (45-117); TOTAL BILIRUBIN ADULT 1.1 MG/DL (0.2-1.0)
[2016-11-21 07:02] LABS: BANDS 17 % (0-6); EOSINOPHILS 2 % (0-4); NEUTROPHIL # MANUAL DIFF 9.4 TH/MM3 (1.8-7.7); POLYS (SEG NEUTROPHILS) 69 % (16-70); WBC DIFF SAMPLE 100
[2016-11-21 07:03] LABS: SPHEROCYTES OCC (NORMAL)
[2016-11-21 07:04] LABS: PLATELET ESTIMATE SMEAR NORMAL (NORMAL); PLATELET MORPHOLOGY NORMAL (NORMAL); SCAN/DIFF FINAL DIFF MANUAL
--- NOTE | 2016-11-21 07:30 | HHI.CCPN ---
Subjective Remarks/Hospital Course 66-year-old male, custodial resident, presents by ambulance because of his oxygen saturation on room air was in the 70s. They put him on a nonrebreather and placed him on CPAP and he was doing better when he started to have decline in his oxygen saturations so they proceeded with giving him Ativan and etomidate and intubating him. They also had given him nitroglycerin prior to this. 11/19: Patient is sedated with Versed and intubated. Tolerated CPAP for several hrs yesterday. Received 2units PRBC and 6u FFP yesterday Hgb 7.5 this morning with INR 1.9 . T: 100.9 last night. Renal function improving with Cr: 1.48 from 1.54 11/20 Patient is off sedation remains intubated. CT brain yesterday showed no acute findings. Afebrile. Hgb 9.0 this morning. 11/21 No events overnight. Patient is more awake and alert today follows commands. H/H stable. Renal function is improving. Tmax 101.7 yesterday. Objective Vital Signs Date Time Temp Pulse Resp B/P Pulse Ox O2 Delivery O2 Flow Rate FiO2 11/21/16 06:00 65 11/21/16 04:19 96 35 11/21/16 04:00 99.0 17 123/61 11/18/16 02:03 Ventilator Intake and Output 11/20/16 11/20/16 11/21/16 08:00 16:00 00:00 Intake Total 555 ml 496 ml 723 ml Output Total 500.0 ml 450 ml 1000 ml Balance 55.0 ml 46 ml -277 ml Result Diagram: 11/21/16 0507 11/21/16 0507 Other Results Laboratory Tests Test 11/20/16 11/21/16 08:18 05:07 Prothrombin Time 19.3 SEC Prothromb Time International 1.7 RATIO Ratio White Blood Count 10.9 TH/MM3 Red Blood Count 3.27 MIL/MM3 Hemoglobin 9.6 GM/DL Hematocrit 29.5 % Mean Corpuscular Volume 90.3 FL Mean Corpuscular Hemoglobin 29.3 PG Mean Corpuscular Hemoglobin 32.4 % Concent Red Cell Distribution Width 16.5 % Platelet Count 168 TH/MM3 Mean Platelet Volume 8.4 FL Neutrophils (%) (Auto) 84.0 % Lymphocytes (%) (Auto) 6.1 % Monocytes (%) (Auto) 7.0 % Eosinophils (%) (Auto) 2.5 % Basophils (%) (Auto) 0.4 % Neutrophils # (Auto) 9.1 TH/MM3 Lymphocytes # (Auto) 0.7 TH/MM3 Monocytes # (Auto) 0.8 TH/MM3 Eosinophils # (Auto) 0.3 TH/MM3 Basophils # (Auto) 0.0 TH/MM3 CBC Comment AUTO DIFF Differential Total Cells 100 Counted Neutrophils % (Manual) 69 % Band Neutrophils % 17 % Lymphocytes % 7 % Monocytes % 5 % Eosinophils % 2 % Neutrophils # (Manual) 9.4 TH/MM3 Differential Comment FINAL DIFF MANUAL Platelet Estimate NORMAL Platelet Morphology Comment NORMAL Spherocytes OCC Sodium Level 141 MEQ/L Potassium Level 4.2 MEQ/L Chloride Level 99 MEQ/L Carbon Dioxide Level 33.3 MEQ/L Anion Gap 9 MEQ/L Blood Urea Nitrogen 52 MG/DL Creatinine 1.19 MG/DL Estimat Glomerular Filtration 61 ML/MIN Rate Random Glucose 158 MG/DL Calcium Level 8.1 MG/DL Phosphorus Level 2.2 MG/DL Magnesium Level 2.8 MG/DL Total Bilirubin 1.1 MG/DL Aspartate Amino Transf 27 U/L (AST/SGOT) Alanine Aminotransferase 122 U/L (ALT/SGPT) Alkaline Phosphatase 120 U/L Total Protein 7.0 GM/DL Albumin 2.0 GM/DL Imaging Last Impressions Head CT 11/19/16 0000 Signed Impressions: Service Date/Time: Saturday, November 19, 2016 12:42 - CONCLUSION: 1. Ventricular prominence as described above. This is stable in the interval. 2. There is no other significant interval change. Nahid Cazares MD FACR Chest X-Ray 11/19/16 0000 Signed Impressions: Service Date/Time: Saturday, November 19, 2016 07:47 - CONCLUSION: Stable chest with coarse interstitial and alveolar changes both lungs. Nahid Cazaers MD FACR Liver Ultrasound 11/18/16 0000 Signed Impressions: Service Date/Time: Friday, November 18, 2016 08:04 - CONCLUSION: 1. Small bilateral pleural effusions. 2. Prominent somewhat sonodense liver without intrahepatic biliary ductal dilatation. Nahid Cazares MD FACR Objective Remarks GENERAL: 66 yo intubated off sedation . SKIN: Warm and dry. HEAD: Normocephalic. EYES: No scleral icterus. No injection or drainage. NECK: Supple, trachea midline. No JVD or lymphadenopathy. CARDIOVASCULAR: Regular rate and rhythm without murmurs, gallops, or rubs. RESPIRATORY: Breath sounds equal bilaterally. No accessory muscle use. GASTROINTESTINAL: Abdomen soft, non-tender, nondistended. MUSCULOSKELETAL: No cyanosis, or edema. BACK: Nontender without obvious deformity. No CVA tenderness. EXTREMITIES: No clubbing or cyanosis, Left AKA noted, Stage 4 wound RLE. Neuro: intubated, more awake and alert today. A/P Assessment and Plan Acute on chronic respiratory failure CHF decompensation Cardiomyopathy COPD Chronic atrial fibrillation Coagulopathy Anemia Hypertension Diabetic neuropathy LLE stage 4 wound Peripheral vascular disease UTI Coagulopathy 2nd Coumadin toxicity Plan Neuro: Off sedation. Monitor neuro status. Patient is more awake and alert today. Follows commands. 11/19 Ct brain: No acute findings. Pulm: Continue with vent support keep sat >92%, Bronchodilators, ICU vent bundle, CPAP trials as tapan. Check CXR CV: Monitor HR and BP keep MAP>65mmHg. On Coreg 3.125 mg BID Echo showed EF 35-40%, Cards is following- Dr. Montgomery. Not a candidate for ASA or anticoagulation given severe anemia. Not on statin due to elevated LFT's. : Monitor renal function, I/O's, electrolytes replacement per protocol. Cr: 1.19 today from 1.33, UO:1950ml in 24 hrs, on Lasix 40mg IV BID GI: On Glucerna 1.5 @60ml/hr, G is following Monitor LFT;s..trending down, Hepatitis profile is negative. US liver: No intrahepatic biliary ductal dilatation. ID: Continue abx( Zosyn, Diflucan) add Zyvox monitor for signs of infections ( Fever, WBC) Panculture today ( Blood cx x 2sets, sputum, UA with cx if indicated) Wound care, Plastic and vascular surgery are following 11/17 Sputum cx: Proteus, 11/17 Urine cx: VRE and C. Kreusi 11/17 Wound cx: Proteus, Pseudomonas, Staph Aureus, Group D Enterococcus Heme: Monitor CBC, Coags, s/p transfusion 2units PRBC, 6u FFP, Vitamin K 10mg x1 on arrival s/p transfusion 1unit PRBC 11/19 Endo: SSI with accuchecks GI prophylaxis with Pepcid DVT prophylaxis - coagulopathic with INR 1.7 Level 3 oJsse Iverson MD Nov 21, 2016 07:30
[2016-11-21] MEDS: TAMSULOSIN HCL 0.4 MG CAP PO SCH (07:53)
[2016-11-21] MEDS: FUROSEMIDE 40 MG/4 ML VIAL IV PUSH SCH ×2 (07:53→17:00)
[2016-11-21] MEDS: FAMOTIDINE 20 MG/2 ML VIAL IV PUSH SCH ×2 (07:53→20:22)
[2016-11-21] MEDS: ARTIFICIAL TEARS OPTH SOLN 15 ML BTL EACH EYE SCH ×3 (07:53→17:01)
[2016-11-21] MEDS: SODIUM CHLORIDE 0.9% FLUSH 10 ML FLUSH SCH ×2 (07:53→20:23)
[2016-11-21] MEDS: LACTULOSE SYRUP 20 GM/30 ML CUP PO SCH ×2 (07:54→20:23)
[2016-11-21] MEDS: FLUCONAZOLE 100 MG TAB PO SCH (07:54)
[2016-11-21] MEDS: SENNOSIDES SYRUP 8.8 MG/5 ML CUP PO SCH (07:54)
[2016-11-21] MEDS: GABAPENTIN 300 MG CAP PO SCH ×3 (07:54→17:00)
[2016-11-21] MEDS: DOCUSATE SODIUM 50 MG/SENNA 8.6 MG TAB PO SCH ×2 (07:54→20:23)
[2016-11-21] MEDS: CARVEDILOL 3.125 MG TAB PO SCH ×2 (07:54→20:30)
[2016-11-21] MEDS: ESCITALOPRAM OXALATE 10 MG TAB PO SCH (07:54)
[2016-11-21] MEDS: LINEZOLID 600 MG TAB PO SCH ×2 (08:05→20:29)
[2016-11-21 08:43] LABS: BLOOD, URINE MOD (NEG); GLUCOSE,URINE NEG (NEG); KETONE, URINE NEG (NEG); MUCUS URINE FEW /lpf (OCC); NITRITE,URINE NEG (NEG); PH, URINE 6.5 (5.0-8.5); URINE COLOR YELLOW (YELLW/STRAW)
[2016-11-21 08:48] LABS: COMMENT (UR) CATH-CULTURE IND; CULTURE IF INDICATED CATH CULTURE IND
--- NOTE | 2016-11-21 09:01 | RADRPT ---
EXAM DATE/TIME: 11/21/2016 07:28 [place] COMPARISON: CHEST SINGLE AP, November 19, 2016, 7:47. INDICATIONS : Short of breath. MEDICAL HISTORY : Diabetes mellitus type II. Cardiovascular disease. Chronic obstructive SURGICAL HISTORY : None. ENCOUNTER: Subsequent ACUITY: 4 - 6 days PAIN SCORE: Non-responsive. LOCATION: Bilateral chest FINDINGS: Interstitial vascular prominence with scattered patchy airspace disease remains evident throughout markel th lungs. There's been no significant improvement or worsening since 11/19. Endotracheal and nasogastric tubes are in stable position. CONCLUSION: No significant change. Nickolas Jordan MD on November 21, 2016 at 8:58 Board Certified Radiologist. This report was verified electronically.
--- NOTE | 2016-11-21 09:59 | PD.CONS ---
History of Present Illness Service Infectious disease Consult Requested By Dr Corina Barraza Reason for Consult Evaluate patient with pneumonia, UTI, positive wound culture Primary Care Physician James Bolden MD Diagnoses: History of Present Illness Patient seen and examined. Records reviewed. Patient is intubated and unable to give any history 66-year-old male, [facility] the [facility] for evaluation of desaturation. He was initially on a nonrebreather mask, and got switched to CPAP. He was further deterioration in the respiratory status, and he ended up getting intubated. On presentation, his chest x-ray showed bilateral infiltrates. His WBC is normal. Urinalysis showed pyuria. Patient did not have a Cabello in the [facility], and a Cabello catheter was placed in the emergency room. His creatinine was initially 1.67, and it's down to 1.19. He also has elevated LFTs, and they are improving. Imaging studies normal for liver and biliary tree. Patient also had findings of wounds in his right heel and right leg. Patient was admitted as sepsis, and started on broad-spectrum antibiotics. In the last several days patient has had some fevers. His urine culture grew VRE, and Natalie. Sputum culture with Proteus. Wound culture is now growing multiple organisms, including Pseudomonas, Proteus, enterococcus, and staph aureus. Patient is being evaluated by plastic surgery and vascular surgery for the multiple wounds in his right lower extremity. His hemodynamics are stable. He is currently on Zosyn, and Zyvox. Infectious disease consultation has been requested to evaluate the patient with multiple infections. Review of Systems ROS Limitations: Clinical Condition, Intubated Past Family Social History Allergies: Coded Allergies: *MDRO Multi-Drug Resistant Organism (Verified Adverse Reaction, Unknown, MRSA, 11/21/16) MRSA (toe wound) - 01/27/16; (foot) - 05/24/16 MRSA PCR Screen POSITIVE - 05/26/16 VRE (urine)-11/17/16 Past Medical History Chronic atrial fibrillation on Coumadin History of congestive heart failure ejection fraction on 03/2016 50-55% COPD Hypertension History of UTI Peripheral vascular disease Diabetic mellitus Chronic pain Bilateral diabetic foot ulcers History of osteomyelitis left lower extremity Past Surgical History Cholecystectomy Tonsillectomy Previous revascularization, has had stent placement S/P L AKA Jun 2016 Active Ordered Medications Tylenol Albuterol Dulcolax Coreg Lexapro Pepcid Fentanyl Diflucan Lasix Neurontin Insulin Lactulose Zyvox MOM Reglan Versed Morphine Zofran Zosyn Compazine Grace-Colace Senokot Simethicone Senna Flomax Social History skilled nursing resident wheelchair bound. No documented history of tobacco, alcohol or illicit drug abuse Physical Exam Vital Signs Vital Signs Date Time Temp Pulse Resp B/P Pulse Ox O2 Delivery O2 Flow Rate FiO2 11/21/16 09:27 98 35 11/21/16 08:05 40 11/21/16 08:00 61 11/21/16 08:00 40 11/21/16 08:00 99.1 63 24 117/57 98 11/21/16 07:35 40 11/21/16 07:33 99 40 11/21/16 06:00 65 11/21/16 04:19 96 35 11/21/16 04:00 64 11/21/16 04:00 99.0 64 17 123/61 98 11/21/16 04:00 40 11/21/16 02:00 61 11/21/16 00:48 99 40 11/21/16 00:00 98.7 60 17 119/62 100 11/21/16 00:00 40 11/21/16 00:00 60 11/20/16 22:00 57 11/20/16 20:00 98.1 58 15 119/58 100 11/20/16 20:00 58 11/20/16 20:00 40 11/20/16 19:28 100 40 11/20/16 18:00 61 11/20/16 16:01 100 40 11/20/16 16:00 101.7 65 17 122/56 99 11/20/16 16:00 40 11/20/16 16:00 65 11/20/16 14:00 65 11/20/16 13:23 100 40 11/20/16 12:00 40 11/20/16 12:00 99.3 61 14 113/53 98 11/20/16 12:00 61 11/20/16 10:50 98 40 11/20/16 10:00 66 Physical Exam GENERAL: Patient is a well-nourished, well-developed CM, awake and alert, orally intubated, not in respiratory distress. SKIN: Warm and dry. Has scattered purpuric lesions in his UE. HEAD: Atraumatic. Normocephalic. No temporal wasting, or tenderness. EYES: [place] conjunctiva. No petechia or hemorrhage. Pupils equal, round and reactive to light. Extraocular movements full and intact. No scleral icterus. No injection or drainage. EARS, NOSE AND THROAT: Nose without bleeding or purulent nasal discharge. No sinus tenderness. He is orally intubated, moist mucosa, with some mild white coating on his tongue. NECK: Trachea midline. Supple and not tender, no meningeal signs CARDIOVASCULAR: Regular rate and rhythm. No murmurs, rubs or gallops heard RESPIRATORY: Coarse BS janice, equal BS. Decreased BS at the bases. No wheezing or rhonchi ABDOMEN: Soft, non-tender, nondistended. Bowel sounds present and normoactive. No guarding. No rebound. No organomegaly. EXTREMITIES: S/P L AKA with well healed stump. R foot - there is a dry eschar about quarter size over his 5th MT, and there is an ulcer on his R heel that is about 1 in x 0.5 inch with pink base, and no surrounding cellulitis and some serous drainage. On his R lateral leg is a large infected open wound that measures about 7 in x 2 in with necrotic fibrous bloody exudate, with foul odor , and he has some purplish discoloration of the skin surrounding the large wound. No joint effusion. No R calf tenderness. R foot slightly cool, but the rest of his RLE is warm. NEUROLOGICAL: Awake and alert. 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 No facial asymmetry, full EOM PSYCHIATRIC: Awake and cooperative LINE: No evidence of infection : Cabello in place, with sediment in his urine Laboratory Laboratory Tests Test 11/21/16 11/21/16 05:07 08:00 White Blood Count 10.9 Red Blood Count 3.27 Hemoglobin 9.6 Hematocrit 29.5 Mean Corpuscular Volume 90.3 Mean Corpuscular Hemoglobin 29.3 Mean Corpuscular Hemoglobin 32.4 Concent Red Cell Distribution Width 16.5 Platelet Count 168 Mean Platelet Volume 8.4 Neutrophils (%) (Auto) 84.0 Lymphocytes (%) (Auto) 6.1 Monocytes (%) (Auto) 7.0 Eosinophils (%) (Auto) 2.5 Basophils (%) (Auto) 0.4 Neutrophils # (Auto) 9.1 Lymphocytes # (Auto) 0.7 Monocytes # (Auto) 0.8 Eosinophils # (Auto) 0.3 Basophils # (Auto) 0.0 CBC Comment AUTO DIFF Differential Total Cells 100 Counted Neutrophils % (Manual) 69 Band Neutrophils % 17 Lymphocytes % 7 Monocytes % 5 Eosinophils % 2 Neutrophils # (Manual) 9.4 Differential Comment FINAL DIFF MANUAL Platelet Estimate NORMAL Platelet Morphology Comment NORMAL Spherocytes OCC Sodium Level 141 Potassium Level 4.2 Chloride Level 99 Carbon Dioxide Level 33.3 Anion Gap 9 Blood Urea Nitrogen 52 Creatinine 1.19 Estimat Glomerular Filtration 61 Rate Random Glucose 158 Calcium Level 8.1 Phosphorus Level 2.2 Magnesium Level 2.8 Total Bilirubin 1.1 Aspartate Amino Transf 27 (AST/SGOT) Alanine Aminotransferase 122 (ALT/SGPT) Alkaline Phosphatase 120 Total Protein 7.0 Albumin 2.0 Urine Color YELLOW Urine Turbidity CLEAR Urine pH 6.5 Urine Specific [place] 1.020 Urine Protein 30 Urine Glucose (UA) NEG Urine Ketones NEG Urine Occult Blood MOD Urine Nitrite NEG Urine Bilirubin NEG Urine Urobilinogen 8.0 Urine Leukocyte Esterase LARGE Urine RBC 13 Urine WBC 47 Urine WBC Clumps RARE Urine Mucus FEW Urine Yeast (Budding) RARE Microscopic Urinalysis Comment CATH-CULTURE IND Date/Time Procedure Status Source Growth 11/21/16 09:10 Aerobic Blood Culture Received Blood Peripheral Pending 11/21/16 09:10 Anaerobic Blood Culture Received Blood Peripheral Pending 11/21/16 08:08 Gram Stain Received Sputum Endotracheal Pending 11/21/16 08:08 Sputum Culture Received Sputum Endotracheal Pending 11/21/16 08:00 Urine Culture Received Urine Catheterized Urine Pending 11/20/16 04:30 Stool Occult Blood (FLAVIA) - Final Complete Stool Stool HEMOCCULT NEGATIVE 11/18/16 18:00 Gram Stain - Final Resulted Wound Leg 11/18/16 18:00 Wound Culture - Preliminary Resulted Pseudomonas Species Proteus Species Staphylococcus Aureus Group D Enterococcus 11/18/16 03:33 Aerobic Blood Culture - Preliminary Resulted Blood Peripheral NO GROWTH IN 2 DAYS 11/18/16 03:33 Anaerobic Blood Culture - Preliminary Resulted Blood Peripheral NO GROWTH IN 2 DAYS 11/18/16 00:15 Influenza Types A,B Antigen (FLAVIA) - Final Complete Nasal Aspirate NEGATIVE FOR FLU A AND B ANTIGEN.... 11/17/16 22:55 Urine Culture - Final Complete Urine Catheterized Urine Enterococcus Faecalis Vre Natalie Krusei Result Diagram: 11/21/16 0507 11/21/16 0507 Imaging RADIOLOGY STUDIES/FILMS REVIEWED Chest X-Ray 11/21/16 0000 Signed Impressions: Service Date/Time: Monday, November 21, 2016 07:28 - CONCLUSION: No significant change. Nickolas Jordan MD Head CT 11/19/16 0000 Signed Impressions: Service Date/Time: Saturday, November 19, 2016 12:42 - CONCLUSION: 1. Ventricular prominence as described above. This is stable in the interval. 2. There is no other significant interval change. Nahid Cazares MD FACR Liver Ultrasound 11/18/16 0000 Signed Impressions: Service Date/Time: Friday, November 18, 2016 08:04 - CONCLUSION: 1. Small bilateral pleural effusions. 2. Prominent somewhat sonodense liver without intrahepatic biliary ductal dilatation. Nahid Cazares MD FACR Assessment and Plan Assessment and Plan IMPRESSION Sepsis, source? - has bilateral infiltrates and hypoxemia, and likely with HCAP, possibly with CHF on top - has UTI ([place] cabello in [place]) - infected R leg wound, patient with underlying PVD Respiratory failure, PNA, CHF - has Proteus PNA Fevers PVD, infected wound R leg, ?decubitus - previous revascularization and L AKA UTI - has VRE and Natalie krusei on UC Infected wounds RLE, ?decubitus - C/S PSAE, Proteus, Enterococcus, Staph aureus Has MDR organisms on his C/S RECOMMENDATION Continue Zosyn, increase dose for PSAE dosing Continue Zyvox, will cover VRE and Staph aureus - will stop Lexapro, D/W Dr barraza ([facility]) - follow CBC Also on Diflucan - will follow repeat UC, may need to increase dose Wound care RLE wounds Vascular work up Prob will need amputation RLE Follow C/S and adjust Abx Follow temps Monitor progress I will follow along with you Thank you for this consultation Discussed Condition With D/W RN D/W Dr Barraza ([facility]) Gogo Patel MD Nov 21, 2016 09:59
[2016-11-21 11:04] LABS: BLOOD GAS BASE EXCESS 10.8 mmol/L (-2-2); BLOOD GAS CARBOXYHEMOGLOBIN 2.3 % (0-4); BLOOD GAS HCO3 35 mmol/L (22-26); BLOOD GAS O2 HGB SATURATION 91 % (90-100); BLOOD GAS OXYGEN CONTENT 19.2 Vol % (12.0-20.0); BLOOD GAS PCO2 51 mmHg (38-42); BLOOD GAS PO2 69 mmHg (61-120); CRITICAL VALUE YES; OXYGEN DEVICE VENTILATOR; TEMP CORR TO 98.6
[2016-11-21 11:05] LABS: DRAW SITE LT RADIAL; FIO2 40 %; NUMBER OF ARTERIAL PUNCTURES 1; STAT NO; ULNAR PULSE PRESENT; VENT SETTINGS PEEP5/PS10
[2016-11-21] MEDS: PIPERACIL-TAZO 4.5 GM PREMIX 100 ML IV SCH ×2 (13:21→20:23)
--- NOTE | 2016-11-21 16:28 | MB ---
cc: DAWSON SAMUEL MD DATE OF CONSULTATION: 11/21/2016 REASON FOR CONSULTATION: 1. Peripheral vascular disease. 2. Sepsis 3. Respiratory failure. 4. Occlusion of vasculature of the right leg. 5. Ulcer of the right lateral aspect of the leg and heel. HISTORY OF PRESENT ILLNESS: This 66 year-old male was admitted to the hospital with hypoxia, placed on the respirator and is currently in Intensive care unit, the process of the work up he was noted to have a ulcer on the heel and lateral aspect of the right ankle, question arises about the significance of this finding, possible vascular remedy. PAST MEDICAL HISTORY: 1. Chronic atrial fibrillation. 2. Hypertension. 3. Peripheral vascular disease. 4. Diabetic neuropathy. 5. Recurrent diabetic foot ulcers 6. Osteomyelitis of the left leg due to ischemia. PAST SURGICAL HISTORY: 1. That of cholecystectomy. 2. Tonsillectomy. 3. Left below-knee amputation. MEDICATIONS: On record. SOCIAL HISTORY: Unknown to me but the patient does not smoke or drink at this time. He is in a snf and so clearly he is not smoking or drinking currently. PHYSICAL EXAMINATION: IN GENERAL: Intubated, ventilated 66 year-old gentleman, normocephalic, no trauma to the head. HEAD, EYES, EARS, NOSE, AND THROAT: Pupils equal, round, reactive to light and accommodation, extraocular muscles cannot be tested. NECK: Bilateral carotid pulses and bilateral faint bruits. CHEST: Bilateral breath sounds, patient is fully ventilatory supported. HEART: The patient is in sinus rhythm. The heart rate is above 70. ABDOMEN: The abdomen is soft, somewhat overweight, active bowel sounds. EXTREMITIES: The patient had left leg amputated. On the right side, the patient has a palpable femoral pulses below that. He has a very faint popliteal pulse by Doppler and dorsalis pedis that is very weak, posterior tibial is gone. There is an ulcer over the right heal that extends to the right lateral ankle, somewhat superficial involving skin and subcutaneous tissue. IMPRESSION/RECOMMENDATIONS: A 66 year-old male on a ventilator intubated with multiple medical problems including ejection fraction of about 35 to 40% and respiratory failure. This gentleman had several CTA's with run off done in the last year or so. Indeed, the patient also has some angioplasty of the left leg which did result later on in amputation about two years ago. As far as the right leg is concerned, the patient has decent inflow but then has trifurcation occlusion with occlusion of the peroneal and posterior tibial arteries. The only flow to the foot is very diseased anterior tibial artery. Dawson Mclean /2:22 PM /2:29 PM
[2016-11-22] VITALS (30 sets, daily range): BP systolic 96–121; BP diastolic 49–65; PULSE 62–74; RESP 11–34; TEMP 97.7–99.1; O2SAT 89–100
[2016-11-22] MEDS: PIPERACIL-TAZO 4.5 GM PREMIX 100 ML IV SCH ×4 (00:47→20:23)
[2016-11-22] MEDS: CHLORHEXIDINE GLUCONATE 2 % 1 PACK (2 CLOTHS) TOP SCH (00:47)
[2016-11-22] MEDS: RESP: ALBUTEROL 2.5 MG/IPRATROPIUM 0.5 MG NEB (PRN) INH (04:02)
[2016-11-22] MEDS: INSULIN ASPART SUPPLEMENTAL SCALE SQ SCH ×4 (06:00→17:59)
[2016-11-22 06:47] LABS: AUTOMATED NEUTROPHIL # 9.5 TH/MM3 (1.8-7.7); BASOPHIL # 0.1 TH/MM3 (0-0.2); BASOPHIL % 0.5 % (0.0-2.0); EOSINOPHIL # 0.2 TH/MM3 (0-0.4); EOSINOPHIL % 1.5 % (0.0-4.0); HEMATOCRIT 28.3 % (39.0-51.0); HEMO FLAGS DIFF FINAL; LYMPH % 5.8 % (9.0-44.0); LYMPHOCYTE # 0.7 TH/MM3 (1.0-4.8); MEAN CELL VOLUME 90.4 FL (80.0-100.0); MEAN CORPUSCULAR HEMOGLOBIN 29.1 PG (27.0-34.0); MEAN CORPUSCULAR HGB CONC 32.2 % (32.0-36.0); MONO % 9.3 % (0.0-8.0); NEUT % 82.9 % (16.0-70.0); PLATELET COUNT 165 TH/MM3 (150-450); RED BLOOD COUNT 3.13 MIL/MM3 (4.50-5.90); RED CELL DISTRIBUTION WIDTH 16.8 % (11.6-17.2); WHITE BLOOD COUNT 11.5 TH/MM3 (4.0-11.0)
[2016-11-22 07:12] LABS: ALT (GPT) 85 U/L (12-78); ANION GAP 6 MEQ/L (5-15); BICARBONATE 38.1 MEQ/L (21.0-32.0); CHLORIDE 100 MEQ/L (98-107); GLOMERULAR FILTRATION RATE 62 ML/MIN (>89); MAGNESIUM 2.7 MG/DL (1.5-2.5); POTASSIUM 3.9 MEQ/L (3.5-5.1); SODIUM (NA) 144 MEQ/L (136-145)
--- NOTE | 2016-11-22 07:16 | HHI.CCPN ---
Subjective Remarks/Hospital Course 66-year-old male, shelter resident, presents by ambulance because of his oxygen saturation on room air was in the 70s. They put him on a nonrebreather and placed him on CPAP and he was doing better when he started to have decline in his oxygen saturations so they proceeded with giving him Ativan and etomidate and intubating him. They also had given him nitroglycerin prior to this. 11/19: Patient is sedated with Versed and intubated. Tolerated CPAP for several hrs yesterday. Received 2units PRBC and 6u FFP yesterday Hgb 7.5 this morning with INR 1.9 . T: 100.9 last night. Renal function improving with Cr: 1.48 from 1.54 11/20 Patient is off sedation remains intubated. CT brain yesterday showed no acute findings. Afebrile. Hgb 9.0 this morning. 11/21 No events overnight. Patient is more awake and alert today follows commands. H/H stable. Renal function is improving. Tmax 101.7 yesterday. 11/22 Patient s/p extubation yesterday on BIPAP overnight 05/15 with 40% FIO2. Afebrile. Objective Vital Signs Date Time Temp Pulse Resp B/P Pulse Ox O2 Delivery O2 Flow Rate FiO2 11/22/16 06:00 68 11/22/16 05:00 34 111/56 92 11/22/16 04:02 40 11/22/16 04:00 97.7 11/21/16 20:50 Nasal Cannula 3.00 Intake and Output 11/21/16 11/21/16 11/22/16 08:00 16:00 00:00 Intake Total 507 ml 396 ml 111 ml Output Total 500 ml 1055 ml 1100 ml Balance 7 ml -659 ml -989 ml Result Diagram: 11/22/16 0532 11/21/16 0507 Other Results Laboratory Tests Test 11/21/16 11/21/16 11/22/16 08:00 10:50 05:32 Urine Color YELLOW Urine Turbidity CLEAR Urine pH 6.5 Urine Specific [place] 1.020 Urine Protein 30 mg/dL Urine Glucose (UA) NEG mg/dL Urine Ketones NEG mg/dL Urine Occult Blood MOD Urine Nitrite NEG Urine Bilirubin NEG Urine Urobilinogen 8.0 MG/DL Urine Leukocyte Esterase LARGE Urine RBC 13 /hpf Urine WBC 47 /hpf Urine WBC Clumps RARE Urine Mucus FEW /lpf Urine Yeast (Budding) RARE Microscopic Urinalysis Comment CATH-CULTURE IND Blood Gas Puncture Site LT RADIAL Blood Gas Patient Temperature 98.6 Blood Gas HCO3 35 mmol/L Blood Gas Base Excess 10.8 mmol/L Blood Gas Oxygen Saturation 91 % Arterial Blood pH 7.45 Arterial Blood Partial 51 mmHg Pressure CO2 Arterial Blood Partial 69 mmHg Pressure O2 Arterial Blood Oxygen Content 19.2 Vol % Arterial Blood 2.3 % Carboxyhemoglobin Arterial Blood Methemoglobin 1.0 % Blood Gas Hemoglobin 15.0 G/DL Oxygen Delivery Device VENTILATOR Blood Gas Ventilator Setting PEEP5/PS10 Blood Gas Inspired Oxygen 40 % White Blood Count 11.5 TH/MM3 Red Blood Count 3.13 MIL/MM3 Hemoglobin 9.1 GM/DL Hematocrit 28.3 % Mean Corpuscular Volume 90.4 FL Mean Corpuscular Hemoglobin 29.1 PG Mean Corpuscular Hemoglobin 32.2 % Concent Red Cell Distribution Width 16.8 % Platelet Count 165 TH/MM3 Mean Platelet Volume 8.7 FL Neutrophils (%) (Auto) 82.9 % Lymphocytes (%) (Auto) 5.8 % Monocytes (%) (Auto) 9.3 % Eosinophils (%) (Auto) 1.5 % Basophils (%) (Auto) 0.5 % Neutrophils # (Auto) 9.5 TH/MM3 Lymphocytes # (Auto) 0.7 TH/MM3 Monocytes # (Auto) 1.1 TH/MM3 Eosinophils # (Auto) 0.2 TH/MM3 Basophils # (Auto) 0.1 TH/MM3 CBC Comment DIFF FINAL Differential Comment Imaging Last Impressions Chest X-Ray 11/21/16 0000 Signed Impressions: Service Date/Time: Monday, November 21, 2016 07:28 - CONCLUSION: No significant change. Nickolas Jordan MD Head CT 11/19/16 0000 Signed Impressions: Service Date/Time: Saturday, November 19, 2016 12:42 - CONCLUSION: 1. Ventricular prominence as described above. This is stable in the interval. 2. There is no other significant interval change. Nahid Cazares MD FACR Liver Ultrasound 11/18/16 0000 Signed Impressions: Service Date/Time: Friday, November 18, 2016 08:04 - CONCLUSION: 1. Small bilateral pleural effusions. 2. Prominent somewhat sonodense liver without intrahepatic biliary ductal dilatation. Nahid Cazares MD FACR Objective Remarks GENERAL: 66 yo lying in bed in no acute resp. distress on BIPAP. SKIN: Warm and dry. HEAD: Normocephalic. EYES: No scleral icterus. No injection or drainage. NECK: Supple, trachea midline. No JVD or lymphadenopathy. CARDIOVASCULAR: Regular rate and rhythm without murmurs, gallops, or rubs. RESPIRATORY: Breath sounds equal bilaterally. No accessory muscle use. GASTROINTESTINAL: Abdomen soft, non-tender, nondistended. MUSCULOSKELETAL: No cyanosis, or edema. BACK: Nontender without obvious deformity. No CVA tenderness. EXTREMITIES: No clubbing or cyanosis, Left AKA noted, Stage 4 wound RLE. Neuro: Awake and alert. A/P Assessment and Plan Acute on chronic respiratory failure- extubated 11/21 CHF decompensation Cardiomyopathy COPD Chronic atrial fibrillation Coagulopathy Anemia Hypertension Diabetic neuropathy LLE stage 4 wound Peripheral vascular disease UTI Coagulopathy 2nd Coumadin toxicity Plan Neuro: Monitor neuro status and avoid sedatives. 11/19 Ct brain: No acute findings. Pulm: Continue with oxygen keep sat >92%, Bronchodilators, NIPPV PRN for resp distress. CV: Monitor HR and BP keep MAP>65mmHg. On Coreg 3.125 mg BID Echo showed EF 35-40%, Cards is following- Dr. Montgomery. Not a candidate for ASA or anticoagulation given severe anemia. Not on statin due to elevated LFT's. : Monitor renal function, I/O's, electrolytes replacement per protocol. Renal function is improving, monitor BMP, on Lasix 40mg IV BID GI: On mechanical soft diet per speech, G is following Monitor LFT;s..trending down, Hepatitis profile is negative. US liver: No intrahepatic biliary ductal dilatation. ID: Continue abx( Zosyn, Diflucan, Zyvox) monitor for signs of infections ( Fever, WBC) Pancultured 11/21 ( Blood cx x 2sets, sputum, UA with cx if indicated) Follow up on cxs Wound care, Plastic and vascular surgery are following- No acute intervention at this time. 11/17 Sputum cx: Proteus, 11/17 Urine cx: VRE and C. Kreusi 11/17 Wound cx: Proteus, Pseudomonas, Staph Aureus, Group D Enterococcus Heme: Monitor CBC, Coags, s/p transfusion 2units PRBC, 6u FFP, Vitamin K 10mg x1 on arrival s/p transfusion 1unit PRBC 11/19 Endo: SSI with accuchecks GI prophylaxis with Pepcid DVT prophylaxis - coagulopathic with INR 1.7 on 11/20 Level 3 Josse Iverson MD Nov 22, 2016 07:16
[2016-11-22] MEDS: DOCUSATE SODIUM 50 MG/SENNA 8.6 MG TAB PO SCH ×3 (07:18→20:24)
[2016-11-22] MEDS: LACTULOSE SYRUP 20 GM/30 ML CUP PO SCH ×2 (07:18→20:24)
[2016-11-22 07:34] LABS: ALKALINE PHOSPHATASE 101 U/L (45-117); AST (GOT) 22 U/L (15-37); BLOOD UREA NITROGEN 47 MG/DL (7-18); TOTAL BILIRUBIN ADULT 1.6 MG/DL (0.2-1.0)
[2016-11-22] MEDS: LINEZOLID 600 MG TAB PO SCH ×2 (08:41→20:23)
[2016-11-22] MEDS: SODIUM CHLORIDE 0.9% FLUSH 10 ML FLUSH PRN (08:42)
[2016-11-22] MEDS: CARVEDILOL 3.125 MG TAB PO SCH ×2 (08:42→20:23)
[2016-11-22] MEDS: TAMSULOSIN HCL 0.4 MG CAP PO SCH (08:42)
[2016-11-22] MEDS: FAMOTIDINE 20 MG/2 ML VIAL IV PUSH SCH ×2 (08:42→20:24)
[2016-11-22] MEDS: FUROSEMIDE 40 MG/4 ML VIAL IV PUSH SCH ×2 (08:42→17:59)
[2016-11-22] MEDS: GABAPENTIN 300 MG CAP PO SCH ×3 (08:42→17:58)
[2016-11-22] MEDS: FLUCONAZOLE 100 MG TAB PO SCH (08:42)
[2016-11-22] MEDS: ARTIFICIAL TEARS OPTH SOLN 15 ML BTL EACH EYE SCH ×3 (08:43→17:59)
[2016-11-22] MEDS: SODIUM CHLORIDE 0.9% FLUSH 10 ML FLUSH SCH ×2 (08:43→20:24)
[2016-11-22] MEDS: SENNOSIDES SYRUP 8.8 MG/5 ML CUP PO SCH (08:43)
[2016-11-22 12:41] LABS: INTERNATIONAL NORMALIZED RATIO 1.5 RATIO; PROTHROMBIN TIME - PATIENT 16.6 SEC (9.8-11.6)
--- NOTE | 2016-11-22 16:17 | HHI.IDPN ---
Subjective Subjective Remarks Notes reviewed Has been extubated Sats ok on nasal O2 Temps ok BP ok Wound C/S - polymicrobial Antibiotics Diflucan Zyvox Zosyn Past Medical History Chronic atrial fibrillation on Coumadin History of congestive heart failure ejection fraction on 03/2016 50-55% COPD Hypertension History of UTI Peripheral vascular disease Diabetic mellitus Chronic pain Bilateral diabetic foot ulcers History of osteomyelitis left lower extremity Past Surgical History Cholecystectomy Tonsillectomy Previous revascularization, has had stent placement S/P L AKA Jun 2016 Allergies: Coded Allergies: *MDRO Multi-Drug Resistant Organism (Verified Adverse Reaction, Unknown, MRSA, 11/21/16) MRSA (toe wound) - 01/27/16; (foot) - 05/24/16 MRSA PCR Screen POSITIVE - 05/26/16 VRE (urine)-11/17/16 Objective . Vital Signs Date Time Temp Pulse Resp B/P Pulse Ox O2 Delivery O2 Flow Rate FiO2 11/22/16 14:00 72 11/22/16 14:00 72 32 121/58 93 11/22/16 13:00 69 26 118/58 93 11/22/16 12:00 68 11/22/16 12:00 98.1 68 26 113/56 92 11/22/16 11:00 67 25 119/65 92 11/22/16 10:00 67 26 114/56 95 11/22/16 10:00 67 11/22/16 09:00 69 28 118/58 94 11/22/16 08:57 93 Nasal Cannula 3.00 11/22/16 08:00 97.9 62 23 102/52 100 11/22/16 08:00 62 11/22/16 07:20 100 40 11/22/16 07:00 64 23 100/55 98 11/22/16 06:00 68 11/22/16 05:00 69 34 111/56 92 11/22/16 04:02 99 40 11/22/16 04:00 63 11/22/16 04:00 97.7 63 26 107/51 97 11/22/16 03:00 62 25 103/52 97 11/22/16 02:00 62 25 101/54 98 11/22/16 02:00 62 11/22/16 01:32 98 40 11/22/16 01:00 62 27 97/53 95 11/22/16 00:00 66 11/22/16 00:00 98.0 66 27 96/49 97 11/21/16 23:00 69 27 94/47 98 11/21/16 22:24 98 40 11/21/16 22:00 66 11/21/16 22:00 66 28 103/53 98 11/21/16 21:22 99 40 11/21/16 21:00 71 29 109/55 99 11/21/16 20:50 98 Nasal Cannula 3.00 11/21/16 20:00 72 11/21/16 20:00 99.5 72 31 113/58 96 11/21/16 19:00 71 33 111/56 96 11/21/16 18:00 71 11/21/16 18:00 72 32 111/53 95 11/21/16 17:00 72 31 108/56 94 11/21/16 11/21/16 11/22/16 15:00 23:00 07:00 Intake Total 396 ml 111 ml 844 ml Output Total 1055 ml 1100 ml 350 ml Balance -659 ml -989 ml 494 ml Intake Oral 50 ml IV Total 158 ml 111 ml 794 ml Tube Feeding 168 ml Other 70 ml Output Urine Total 1055 ml 1100 ml 350 ml # Bowel Movements 1 1 . Laboratory Tests Test 11/21/16 11/22/16 05:07 05:32 White Blood Count 10.9 TH/MM3 11.5 TH/MM3 Red Blood Count 3.27 MIL/MM3 3.13 MIL/MM3 Hemoglobin 9.6 GM/DL 9.1 GM/DL Hematocrit 29.5 % 28.3 % Mean Corpuscular Volume 90.3 FL 90.4 FL Mean Corpuscular Hemoglobin 29.3 PG 29.1 PG Mean Corpuscular Hemoglobin 32.4 % 32.2 % Concent Red Cell Distribution Width 16.5 % 16.8 % Platelet Count 168 TH/MM3 165 TH/MM3 Mean Platelet Volume 8.4 FL 8.7 FL Neutrophils (%) (Auto) 84.0 % 82.9 % Lymphocytes (%) (Auto) 6.1 % 5.8 % Monocytes (%) (Auto) 7.0 % 9.3 % Eosinophils (%) (Auto) 2.5 % 1.5 % Basophils (%) (Auto) 0.4 % 0.5 % Neutrophils # (Auto) 9.1 TH/MM3 9.5 TH/MM3 Lymphocytes # (Auto) 0.7 TH/MM3 0.7 TH/MM3 Monocytes # (Auto) 0.8 TH/MM3 1.1 TH/MM3 Eosinophils # (Auto) 0.3 TH/MM3 0.2 TH/MM3 Basophils # (Auto) 0.0 TH/MM3 0.1 TH/MM3 CBC Comment AUTO DIFF DIFF FINAL Differential Total Cells 100 Counted Neutrophils % (Manual) 69 % Band Neutrophils % 17 % Lymphocytes % 7 % Monocytes % 5 % Eosinophils % 2 % Neutrophils # (Manual) 9.4 TH/MM3 Differential Comment FINAL DIFF MANUAL Platelet Estimate NORMAL Platelet Morphology Comment NORMAL Spherocytes OCC Laboratory Tests Test 11/21/16 11/22/16 05:07 05:32 Sodium Level 141 MEQ/L 144 MEQ/L Potassium Level 4.2 MEQ/L 3.9 MEQ/L Chloride Level 99 MEQ/L 100 MEQ/L Carbon Dioxide Level 33.3 MEQ/L 38.1 MEQ/L Anion Gap 9 MEQ/L 6 MEQ/L Blood Urea Nitrogen 52 MG/DL 47 MG/DL Creatinine 1.19 MG/DL 1.17 MG/DL Estimat Glomerular Filtration 61 ML/MIN 62 ML/MIN Rate Random Glucose 158 MG/DL 132 MG/DL Calcium Level 8.1 MG/DL 8.2 MG/DL Phosphorus Level 2.2 MG/DL 2.9 MG/DL Magnesium Level 2.8 MG/DL 2.7 MG/DL Total Bilirubin 1.1 MG/DL 1.6 MG/DL Aspartate Amino Transf 27 U/L 22 U/L (AST/SGOT) Alanine Aminotransferase 122 U/L 85 U/L (ALT/SGPT) Alkaline Phosphatase 120 U/L 101 U/L Total Protein 7.0 GM/DL 6.7 GM/DL Albumin 2.0 GM/DL 2.0 GM/DL Microbiology Date/Time Procedure Status Source Growth 11/20/16 04:30 Stool Occult Blood (FLAVIA) - Final Complete Stool Stool HEMOCCULT NEGATIVE 11/21/16 08:00 Urine Culture - Preliminary Resulted Urine Catheterized Urine NO GROWTH IN 24 HOURS. 11/21/16 08:08 Gram Stain - Final Resulted Sputum Endotracheal 11/21/16 08:08 Sputum Culture - Preliminary Resulted Sputum Endotracheal NO GROWTH IN 24 HOURS. 11/21/16 09:06 Aerobic Blood Culture - Preliminary Resulted Blood Peripheral NO GROWTH IN 1 DAY 6/13/17 09:06 Anaerobic Blood Culture - Preliminary Resulted Blood Peripheral NO GROWTH IN 1 DAY 11/21/16 09:10 Aerobic Blood Culture - Preliminary Resulted Blood Peripheral NO GROWTH IN 1 DAY 11/21/16 09:10 Anaerobic Blood Culture - Preliminary Resulted Blood Peripheral NO GROWTH IN 1 DAY Imaging Last Impressions Chest X-Ray 11/21/16 0000 Signed Impressions: Service Date/Time: Monday, November 21, 2016 07:28 - CONCLUSION: No significant change. Nickolas Jordan MD Head CT 11/19/16 0000 Signed Impressions: Service Date/Time: Saturday, November 19, 2016 12:42 - CONCLUSION: 1. Ventricular prominence as described above. This is stable in the interval. 2. There is no other significant interval change. Nahid Cazares MD FACR Liver Ultrasound 11/18/16 0000 Signed Impressions: Service Date/Time: Friday, November 18, 2016 08:04 - CONCLUSION: 1. Small bilateral pleural effusions. 2. Prominent somewhat sonodense liver without intrahepatic biliary ductal dilatation. Nahid Cazares MD FACR Physical Exam GENERAL: awake and alert, not in respiratory distress. On nasal O2 SKIN: Warm and dry. Has scattered purpuric lesions in his UE. HEAD: Atraumatic. Normocephalic. No temporal wasting, or tenderness. EYES: [place] conjunctiva. No petechia or hemorrhage. Pupils equal, round and reactive to light. Extraocular movements full and intact. No scleral icterus. No injection or drainage. EARS, NOSE AND THROAT: Nose without bleeding or purulent nasal discharge. No sinus tenderness. Moist mucosa, with some mild white coating on his tongue. NECK: Trachea midline. Supple and not tender, no meningeal signs CARDIOVASCULAR: Regular rate and rhythm. No murmurs, rubs or gallops heard RESPIRATORY: Coarse BS janice, equal BS. Decreased BS at the bases. No wheezing or rhonchi ABDOMEN: Soft, non-tender, nondistended. Bowel sounds present and normoactive. No guarding. No rebound. No organomegaly. EXTREMITIES: S/P L AKA with well healed stump. R foot - there is a dry eschar about quarter size over his 5th MT, and there is an ulcer on his R heel that is about 1 in x 0.5 inch with pink base, and no surrounding cellulitis and some serous drainage. On his R lateral leg is a large infected open wound that measures about 7 in x 2 in with necrotic fibrous bloody exudate, with foul odor , and he has some purplish discoloration of the skin surrounding the large wound. No joint effusion. No R calf tenderness. R foot slightly cool, but the rest of his RLE is warm. NEUROLOGICAL: Awake and alert. 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 No facial asymmetry, full EOM PSYCHIATRIC: Awake and cooperative LINE: No evidence of infection : [place] in place, with sediment in his urine Assessment & Plan Remarks IMPRESSION Sepsis, source? - has bilateral infiltrates and hypoxemia, and likely with HCAP, possibly with CHF on top - has UTI (no [place] in [place]) - infected R leg wound, patient with underlying PVD Respiratory failure, PNA, CHF - has Proteus PNA Fevers PVD, infected wound R leg, ?decubitus - previous revascularization and L AKA UTI - has VRE and Natalie krusei on UC Infected wounds RLE, ?decubitus - C/S PSAE, Proteus, Enterococcus, Staph aureus Has MDR organisms on his C/S RECOMMENDATION Continue Zosyn, PSAE and other GNR Continue Zyvox, will cover VRE and Staph aureus - follow CBC Also on Diflucan - will follow repeat UC Wound care RLE wounds Vascular work up May need amputation RLE Follow C/S and adjust Abx Follow temps Monitor progress Gogo Patel MD Nov 22, 2016 16:17
[2016-11-23] VITALS (23 sets, daily range): BP systolic 95–128; BP diastolic 49–63; PULSE 56–69; RESP 14–29; TEMP 97.6–98.9; O2SAT 93–98
[2016-11-23] MEDS: PIPERACIL-TAZO 4.5 GM PREMIX 100 ML IV SCH ×4 (03:20→22:50)
[2016-11-23] MEDS: CHLORHEXIDINE GLUCONATE 2 % 1 PACK (2 CLOTHS) TOP SCH (03:20)
[2016-11-23] MEDS: INSULIN ASPART SUPPLEMENTAL SCALE SQ SCH ×5 (06:00→22:54)
[2016-11-23 06:13] LABS: AUTOMATED NEUTROPHIL # 6.7 TH/MM3 (1.8-7.7); BASOPHIL # 0.1 TH/MM3 (0-0.2); BASOPHIL % 0.6 % (0.0-2.0); EOSINOPHIL # 0.3 TH/MM3 (0-0.4); HEMATOCRIT 27.2 % (39.0-51.0); LYMPH % 12.2 % (9.0-44.0); LYMPHOCYTE # 1.1 TH/MM3 (1.0-4.8); MEAN CELL VOLUME 90.4 FL (80.0-100.0); MEAN CORPUSCULAR HEMOGLOBIN 28.7 PG (27.0-34.0); MEAN CORPUSCULAR HGB CONC 31.8 % (32.0-36.0); MONO % 8.9 % (0.0-8.0); NEUT % 75.3 % (16.0-70.0); PLATELET COUNT 157 TH/MM3 (150-450); RED BLOOD COUNT 3.01 MIL/MM3 (4.50-5.90); RED CELL DISTRIBUTION WIDTH 16.2 % (11.6-17.2)
[2016-11-23 06:21] LABS: HEMO FLAGS AUTO DIFF
[2016-11-23 06:34] LABS: ALT (GPT) 63 U/L (12-78); ANION GAP 4 MEQ/L (5-15); AST (GOT) 22 U/L (15-37); BICARBONATE 38.9 MEQ/L (21.0-32.0); BLOOD UREA NITROGEN 41 MG/DL (7-18); CHLORIDE 101 MEQ/L (98-107); GLOMERULAR FILTRATION RATE 61 ML/MIN (>89); POTASSIUM 3.4 MEQ/L (3.5-5.1); SODIUM (NA) 144 MEQ/L (136-145)
[2016-11-23 06:37] LABS: ALKALINE PHOSPHATASE 84 U/L (45-117); TOTAL BILIRUBIN ADULT 1.1 MG/DL (0.2-1.0)
[2016-11-23] MEDS: LACTULOSE SYRUP 20 GM/30 ML CUP PO SCH (07:18)
[2016-11-23] MEDS: SENNOSIDES SYRUP 8.8 MG/5 ML CUP PO SCH (07:18)
--- NOTE | 2016-11-23 07:41 | HHI.CCPN ---
Subjective Remarks/Hospital Course 66-year-old male, [facility] resident, presents by ambulance because of his oxygen saturation on room air was in the 70s. They put him on a nonrebreather and placed him on CPAP and he was doing better when he started to have decline in his oxygen saturations so they proceeded with giving him Ativan and etomidate and intubating him. They also had given him nitroglycerin prior to this. 11/19: Patient is sedated with Versed and intubated. Tolerated CPAP for several hrs yesterday. Received 2units PRBC and 6u FFP yesterday Hgb 7.5 this morning with INR 1.9 . T: 100.9 last night. Renal function improving with Cr: 1.48 from 1.54 11/20 Patient is off sedation remains intubated. CT brain yesterday showed no acute findings. Afebrile. Hgb 9.0 this morning. 11/21 No events overnight. Patient is more awake and alert today follows commands. H/H stable. Renal function is improving. Tmax 101.7 yesterday. 11/22 Patient s/p extubation yesterday on BIPAP overnight 05/15 with 40% FIO2. Afebrile. Subjective 11/23: Afebrile. Currently on 2 L nasal cannula. Resting comfortably in bed in no acute distress. Tolerating diet. Positive BM. Objective Vital Signs Date Time Temp Pulse Resp B/P Pulse Ox O2 Delivery O2 Flow Rate FiO2 11/23/16 06:00 62 11/23/16 06:00 26 107/53 94 11/23/16 04:00 98.7 11/22/16 19:10 Nasal Cannula 4.00 11/22/16 07:20 40 Intake and Output 11/22/16 11/22/16 11/23/16 08:00 16:00 00:00 Intake Total 844 ml 595 ml 407 ml Output Total 350 ml 825 ml 800 ml Balance 494 ml -230 ml -393 ml Result Diagram: 11/23/16 0459 11/23/16 0459 Other Results Microbiology Date/Time Procedure Status Source Growth 11/21/16 09:10 Aerobic Blood Culture - Preliminary Resulted Blood Peripheral NO GROWTH IN 1 DAY 11/21/16 09:10 Anaerobic Blood Culture - Preliminary Resulted Blood Peripheral NO GROWTH IN 1 DAY 11/21/16 08:08 Gram Stain - Final Resulted Sputum Endotracheal 11/21/16 08:08 Sputum Culture - Preliminary Resulted Sputum Endotracheal NO GROWTH IN 24 HOURS. 11/21/16 08:00 Urine Culture - Preliminary Resulted Urine Catheterized Urine NO GROWTH IN 24 HOURS. 11/20/16 04:30 Stool Occult Blood (FLAVIA) - Final Complete Stool Stool HEMOCCULT NEGATIVE Imaging Last Impressions Chest X-Ray 11/21/16 0000 Signed Impressions: Service Date/Time: Monday, November 21, 2016 07:28 - CONCLUSION: No significant change. Nickolas Jordan MD Head CT 11/19/16 0000 Signed Impressions: Service Date/Time: Saturday, November 19, 2016 12:42 - CONCLUSION: 1. Ventricular prominence as described above. This is stable in the interval. 2. There is no other significant interval change. Nahid Cazares MD FACR Liver Ultrasound 11/18/16 0000 Signed Impressions: Service Date/Time: Friday, November 18, 2016 08:04 - CONCLUSION: 1. Small bilateral pleural effusions. 2. Prominent somewhat sonodense liver without intrahepatic biliary ductal dilatation. Nahid Cazares MD FACR Objective Remarks GENERAL: 66 yo lying in bed in no acute distress on nasal cannula SKIN: Warm and dry. Covered in Kerlix right lower extremity wound HEAD: Normocephalic. EYES, nose and throat: PERRL. No scleral icterus. No injection or drainage. Because members are moist and pink. Oropharynx without thrush NECK: Supple, trachea midline. No JVD or lymphadenopathy. CARDIOVASCULAR: RRR. S1, S2 no S4. Without murmur RESPIRATORY: Essentially clear to auscultation bilaterally without wheezes rales or rhonchi GASTROINTESTINAL: Abdomen soft, non-tender, nondistended. Hypoactive bowel sounds appreciated BACK: Nontender without obvious deformity. No CVA tenderness. EXTREMITIES: No clubbing or cyanosis, Left AKA noted, Stage 4 wound RLE. NEURO: Awake and alert. Moves all 4 extremity spontaneously to command. Urinary Catheter: Yes Assessment to: Remove Chase insert reason: Prolonged Immobilization Vascular Central Line Catheter: No Assessment to: Continue A/P Assessment and Plan Neuro/Psych: Depression Chronic pain syndrome History of TIA Monitor neuro status and limit sedatives. 11/19 Ct brain: No acute findings. Resume home medications Neurontin 300 mg 3 times a day for neuropathy Resume Lexapro 10 mg by mouth daily for depression [place]/morphine for pain management Pulm: Obstructive sleep apnea Chronic type I hypoxic respiratory failure - 2 L nasal cannula History COPD Continue with oxygen keep sat >92%, Continue with bronchodilators scheduled every 6 hours and every 2 hours when necessary dyspnea NIPPV PRN for resp distress. Noted on 2 L nasal cannula chronically home at night CV: Coronary artery disease - heart catheterization 01/24 revealed three-vessel coronary disease unamenable to intervention. Seen by Dr. Montgomery. Signed off Acute systolic heart failure -ejection fraction 35% Hypertension Dyslipidemia Peripheral vascular disease - Chronic atrial fibrillation currently in normal sinus rhythm Monitor HR and BP keep MAP>65mmHg. On Coreg 3.125 mg BID/home medication with holding parameters Echo showed EF 35-40%, mild TR. LV dysfunction. RV dilatation. Which is a change from 55% 01/24, Cards has followed and signed off- Dr. Montgomery. Not a candidate for ASA or anticoagulation given severe anemia. Not on statin due to elevated LFT's. On Lipitor 20 mill grams by mouth daily at home On amiodarone 200 mg by mouth daily/home medication Seen by Dr. Johansen for right lower extremity wound. Very poor anterior tibial blood flow. Occlusive peroneal/posterior tibial disease. Will give 2 doses of Diamox and switch to Lasix 20 mill grams by mouth twice a day tomorrow. : BPH Resume Flomax 0.4 mill grams by mouth daily/home medication Currently on Chase catheter in place. Monitor renal function, I/O's, electrolytes replacement per protocol. Renal function is improving, monitor BMP, on Lasix 40mg IV BID GI: Gastroesophageal reflux disease Hiatal hernia History of Kuhn's esophagus History of bowel dysmotility and chronic Reglan On mechanical soft heart healthy diet per speech Monitor LFT;s..trending down, Hepatitis profile is negative. US liver 11/18: No intrahepatic biliary ductal dilatation. On Reglan 10 mg 4 times a day as needed here in the hospital. [facility] Currently on Pepcid. On Prilosec 20 mg by mouth daily at [facility] ID: Polymicrobial right lower extremity wound infection VRE/funguria Proteus pneumonia Continue abx( Zosyn, Diflucan, Zyvox) monitor for signs of infections ( Fever, WBC) Wound care, Plastic and vascular surgery are following- No acute intervention at this time. Pertinent cultures 11/21/ blood cultures 2 - no growth 11/21 - sputum - negative 11/21 - urine - negative 11/18 - blood cultures 2 - negative 11/18 - sputum - negative 11/17 Sputum cx: Proteus, 11/17 Urine cx: VRE and C. Kreusi 11/17 Wound cx: Proteus, Pseudomonas, Staph Aureus, gram-negative jennifer, enterococcus faecalis and Raffinosus Heme: Chronic warfarin Acute blood loss anemia Admission with warfarin toxicity Monitor CBC, Coags, s/p transfusion 2units PRBC, 6u FFP, Vitamin K 10mg x1 on arrival s/p transfusion 1unit PRBC 11/19 Last INR is 1.5. Off Coumadin due to anemia GI will not do endoscopy of secondary to cardiac issues Restart anticoagulation with heparin drip. Endo: Diabetes mellitus SSI with accuchecks Currently on sliding scale insulin Accu-Cheks before meals/at bedtime. 2 units of sliding scale insulin past 24 hours. On Levemir 15 units at night with sliding scale insulin at [facility] GI prophylaxis with Pepcid DVT prophylaxis - coagulopathic with INR 1.5 on 11/22 Level 2 Patient is stable from a critical care medicine standpoint. We will assign care to hospitalist in a.m. 11/24. Transfer to appropriate for Kip Cevallos MD Nov 23, 2016 07:41
[2016-11-23] MEDS ORDERED: POTASSIUM CHLORIDE 10 MEQ CONTROLLED RELEASE TAB PO ONE (07:45)
[2016-11-23 07:55] LABS: SCAN/DIFF AUTO DIFF CONFIRMED
--- NOTE | 2016-11-23 07:57 | PD.TRANSFR ---
Transfer Summary Admission Date Nov 17, 2016 at 22:59 Transfer Date: Nov 23, 2016 Admitting Diagnosis acute respiratory failure Diagnoses: (1) PVD (peripheral vascular disease) Diagnosis: Principal (2) Acute systolic (congestive) heart failure Diagnosis: Principal (3) GI bleed Diagnosis: Principal (4) DM (diabetes mellitus) Diagnosis: Principal (5) Acute respiratory failure Diagnosis: Principal Significant Findings Echocardiogram - EF 35%. Mild TR. RV dilatation. Consultation to plastics, GI, cardiology, vascular Transfer Summary/Subjective Please see note Objective Vital Signs Date Time Temp Pulse Resp B/P Pulse Ox O2 Delivery O2 Flow Rate FiO2 11/23/16 06:00 62 11/23/16 06:00 26 107/53 94 11/23/16 04:00 98.7 11/22/16 19:10 Nasal Cannula 4.00 11/22/16 07:20 40 Intake and Output 11/22/16 11/22/16 11/23/16 08:00 16:00 00:00 Intake Total 844 ml 595 ml 407 ml Output Total 350 ml 825 ml 800 ml Balance 494 ml -230 ml -393 ml Result Diagram: 11/23/16 0459 11/23/16 0459 Imaging Last Impressions Chest X-Ray 11/21/16 0000 Signed Impressions: Service Date/Time: Monday, November 21, 2016 07:28 - CONCLUSION: No significant change. Nickolas Jordan MD Head CT 11/19/16 0000 Signed Impressions: Service Date/Time: Saturday, November 19, 2016 12:42 - CONCLUSION: 1. Ventricular prominence as described above. This is stable in the interval. 2. There is no other significant interval change. Nahid Cazares MD FACR Liver Ultrasound 11/18/16 0000 Signed Impressions: Service Date/Time: Friday, November 18, 2016 08:04 - CONCLUSION: 1. Small bilateral pleural effusions. 2. Prominent somewhat sonodense liver without intrahepatic biliary ductal dilatation. Nahid Cazares MD FACR Objective Remarks GENERAL: 66 yo lying in bed in no acute distress on nasal cannula SKIN: Warm and dry. Covered in Kerlix right lower extremity wound HEAD: Normocephalic. EYES, nose and throat: PERRL. No scleral icterus. No injection or drainage. Because members are moist and pink. Oropharynx without thrush NECK: Supple, trachea midline. No JVD or lymphadenopathy. CARDIOVASCULAR: RRR. S1, S2 no S4. Without murmur RESPIRATORY: Essentially clear to auscultation bilaterally without wheezes rales or rhonchi GASTROINTESTINAL: Abdomen soft, non-tender, nondistended. Hypoactive bowel sounds appreciated BACK: Nontender without obvious deformity. No CVA tenderness. EXTREMITIES: No clubbing or cyanosis, Left AKA noted, Stage 4 wound RLE. NEURO: Awake and alert. Moves all 4 extremity spontaneously to command. A/P Assessment and Plan Neuro/Psych: Depression Chronic pain syndrome History of TIA Monitor neuro status and limit sedatives. 11/19 Ct brain: No acute findings. Resume home medications Neurontin 300 mg 3 times a day for neuropathy Resume Lexapro 10 mg by mouth daily for depression [place]/morphine for pain management Pulm: Obstructive sleep apnea Chronic type I hypoxic respiratory failure - 2 L nasal cannula History COPD Continue with oxygen keep sat >92%, Continue with bronchodilators scheduled every 6 hours and every 2 hours when necessary dyspnea NIPPV PRN for resp distress. Noted on 2 L nasal cannula chronically home at night CV: Coronary artery disease - heart catheterization 01/24 revealed three-vessel coronary disease unamenable to intervention. Seen by Dr. Montgomery. Signed off Acute systolic heart failure -ejection fraction 35% Hypertension Dyslipidemia Peripheral vascular disease - Chronic atrial fibrillation currently in normal sinus rhythm Monitor HR and BP keep MAP>65mmHg. On Coreg 3.125 mg BID/home medication with holding parameters Echo showed EF 35-40%, mild TR. LV dysfunction. RV dilatation. Which is a change from 55% 01/24, Cards has followed and signed off- Dr. Montgomery. Not a candidate for ASA or anticoagulation given severe anemia. Not on statin due to elevated LFT's. On Lipitor 20 mill grams by mouth daily at home On amiodarone 200 mg by mouth daily/home medication Seen by Dr. Johansen for right lower extremity wound. Very poor anterior tibial blood flow. Occlusive peroneal/posterior tibial disease. Will give 2 doses of Diamox and switch to Lasix 20 mill grams by mouth twice a day tomorrow. : BPH Resume Flomax 0.4 mill grams by mouth daily/home medication Currently on Chase catheter in place. Monitor renal function, I/O's, electrolytes replacement per protocol. Renal function is improving, monitor BMP, on Lasix 40mg IV BID GI: Gastroesophageal reflux disease Hiatal hernia History of Kuhn's esophagus History of bowel dysmotility and chronic Reglan On mechanical soft heart healthy diet per speech Monitor LFT;s..trending down, Hepatitis profile is negative. US liver 11/18: No intrahepatic biliary ductal dilatation. On Reglan 10 mg 4 times a day as needed here in the hospital. Scheduled Reglan at intermediate Currently on Pepcid. On Prilosec 20 mg by mouth daily at intermediate ID: Polymicrobial right lower extremity wound infection VRE/funguria Proteus pneumonia Continue abx( Zosyn, Diflucan, Zyvox) monitor for signs of infections ( Fever, WBC) Wound care, Plastic and vascular surgery are following- No acute intervention at this time. Pertinent cultures 11/21/ blood cultures 2 - no growth 11/21 - sputum - negative 11/21 - urine - negative 11/18 - blood cultures 2 - negative 11/18 - sputum - negative 11/17 Sputum cx: Proteus, 11/17 Urine cx: VRE and C. Kreusi 11/17 Wound cx: Proteus, Pseudomonas, Staph Aureus, gram-negative jennifer, enterococcus faecalis and Raffinosus Heme: Chronic warfarin Acute blood loss anemia Monitor CBC, Coags, s/p transfusion 2units PRBC, 6u FFP, Vitamin K 10mg x1 on arrival s/p transfusion 1unit PRBC 11/19 Last INR is 1.5. Off Coumadin due to anemia GI will not do endoscopy of secondary to cardiac issues Restart anticoagulation with heparin drip. Endo: Diabetes mellitus SSI with accuchecks Currently on sliding scale insulin Accu-Cheks before meals/at bedtime. 2 units of sliding scale insulin past 24 hours. On Levemir 15 units at night with sliding scale insulin at intermediate GI prophylaxis with Pepcid DVT prophylaxis - coagulopathic with INR 1.5 on 11/22 Level 2 Patient is stable from a critical care medicine standpoint. We will assign care to hospitalist in a.m. 11/24. Transfer to appropriate for Kip Cevallos MD Nov 23, 2016 07:56
[2016-11-23] MEDS ORDERED: POTASSIUM CHLORIDE 20 MEQ PWD PACKET PO ONE (08:00)
[2016-11-23] MEDS: RESP: ALBUTEROL 2.5 MG/IPRATROPIUM 0.5 MG NEB (SCH) NEB ×3 (08:27→20:34)
[2016-11-23] MEDS: POTASSIUM CHLORIDE 20 MEQ CONTROLLED RELEASE TAB PO SCH (08:54)
[2016-11-23] MEDS: DOCUSATE SODIUM 50 MG/SENNA 8.6 MG TAB PO SCH ×2 (09:20→22:50)
[2016-11-23] MEDS: GABAPENTIN 300 MG CAP PO SCH ×3 (09:20→17:47)
[2016-11-23] MEDS: ESCITALOPRAM OXALATE 10 MG TAB PO SCH (09:20)
[2016-11-23] MEDS: FAMOTIDINE 20 MG TAB PO SCH ×2 (09:21→22:50)
[2016-11-23] MEDS: CARVEDILOL 3.125 MG TAB PO SCH ×2 (09:21→22:51)
[2016-11-23] MEDS: TAMSULOSIN HCL 0.4 MG CAP PO SCH (09:21)
[2016-11-23] MEDS: FLUCONAZOLE 100 MG TAB PO SCH (09:21)
[2016-11-23] MEDS: SODIUM CHLORIDE 0.9% FLUSH 10 ML FLUSH PRN (09:21)
[2016-11-23] MEDS: ASCORBIC ACID 500 MG TAB PO SCH (09:21)
[2016-11-23] MEDS: SODIUM CHLORIDE 0.9% FLUSH 10 ML FLUSH SCH ×2 (09:22→22:50)
[2016-11-23] MEDS: ARTIFICIAL TEARS OPTH SOLN 15 ML BTL EACH EYE SCH ×3 (09:22→17:47)
[2016-11-23] MEDS: HEPARIN-D5W INJ 250 ML IV SCH ×2 (09:23→22:53)
[2016-11-23] MEDS: LINEZOLID 600 MG TAB PO SCH ×2 (09:24→22:50)
[2016-11-23 11:42] LABS: HEMATOCRIT 28.1 % (39.0-51.0); MEAN CELL VOLUME 91.5 FL (80.0-100.0); MEAN CORPUSCULAR HEMOGLOBIN 30.3 PG (27.0-34.0); MEAN CORPUSCULAR HGB CONC 33.1 % (32.0-36.0); PLATELET COUNT 158 TH/MM3 (150-450); RED BLOOD COUNT 3.07 MIL/MM3 (4.50-5.90); RED CELL DISTRIBUTION WIDTH 16.6 % (11.6-17.2); REVIEW FLAG FINAL; WHITE BLOOD COUNT 8.8 TH/MM3 (4.0-11.0)
[2016-11-23 11:55] LABS: INTERNATIONAL NORMALIZED RATIO 1.4 RATIO; PROTHROMBIN TIME - PATIENT 15.4 SEC (9.8-11.6)
[2016-11-23 14:42] LABS: APTT (PATIENT) 41.6 SEC (24.3-30.1)
--- NOTE | 2016-11-23 15:02 | HHI.IDPN ---
Subjective Subjective Remarks Notes reviewed D/W RN Doing well post-extubation Sats ok on nasal O2 - on nasal O2 in SNF Temps ok BP ok Wound C/S - polymicrobial Antibiotics Diflucan Zyvox Zosyn Past Medical History Chronic atrial fibrillation on Coumadin History of congestive heart failure ejection fraction on 03/2016 50-55% COPD Hypertension History of UTI Peripheral vascular disease Diabetic mellitus Chronic pain Bilateral diabetic foot ulcers History of osteomyelitis left lower extremity Past Surgical History Cholecystectomy Tonsillectomy Previous revascularization, has had stent placement S/P L AKA Jun 2016 Allergies: Coded Allergies: *MDRO Multi-Drug Resistant Organism (Verified Adverse Reaction, Unknown, MRSA, 11/21/16) MRSA (toe wound) - 01/27/16; (foot) - 05/24/16 MRSA PCR Screen POSITIVE - 05/26/16 VRE (urine)-11/17/16 Objective . Vital Signs Date Time Temp Pulse Resp B/P Pulse Ox O2 Delivery O2 Flow Rate FiO2 11/23/16 14:00 65 11/23/16 12:00 63 11/23/16 12:00 98.4 63 25 108/54 96 11/23/16 10:00 66 22 112/53 97 11/23/16 10:00 66 11/23/16 09:00 62 18 111/54 97 11/23/16 08:00 60 11/23/16 08:00 98.3 60 14 105/55 97 11/23/16 07:44 96 Nasal Cannula 3.00 11/23/16 07:00 60 25 98/52 93 11/23/16 06:00 62 11/23/16 06:00 62 26 107/53 94 11/23/16 05:00 60 23 103/53 96 11/23/16 04:00 98.7 56 24 98/50 97 11/23/16 04:00 56 11/23/16 03:00 58 25 99/50 98 11/23/16 02:00 58 25 97/51 96 11/23/16 02:00 58 11/23/16 01:00 59 27 95/49 95 11/23/16 00:00 62 16 98/53 96 11/23/16 00:00 98.9 62 16 98/53 96 11/23/16 00:00 62 11/22/16 23:00 63 11 97/53 94 11/22/16 22:00 63 11/22/16 22:00 63 16 97/54 95 11/22/16 21:00 70 21 103/51 95 11/22/16 20:07 71 26 110/53 96 11/22/16 20:00 99.1 71 26 95 11/22/16 20:00 71 11/22/16 19:10 97 Nasal Cannula 4.00 11/22/16 19:00 71 23 105/52 96 11/22/16 18:00 74 21 106/52 98 11/22/16 18:00 74 11/22/16 17:00 67 29 110/54 89 11/22/16 16:00 68 11/22/16 16:00 97.8 68 27 103/52 92 11/22/16 11/22/16 11/23/16 15:00 23:00 07:00 Intake Total 595 ml 407 ml 259 ml Output Total 825 ml 800 ml 350 ml Balance -230 ml -393 ml -91 ml Intake Oral 480 ml 125 ml 125 ml IV Total 115 ml 282 ml 134 ml Output Urine Total 825 ml 800 ml 350 ml # Bowel Movements 0 1 . Laboratory Tests Test 11/22/16 11/23/16 11/23/16 05:32 04:59 10:46 White Blood Count 11.5 TH/MM3 9.0 TH/MM3 8.8 TH/MM3 Red Blood Count 3.13 MIL/MM3 3.01 MIL/MM3 3.07 MIL/MM3 Hemoglobin 9.1 GM/DL 8.6 GM/DL 9.3 GM/DL Hematocrit 28.3 % 27.2 % 28.1 % Mean Corpuscular Volume 90.4 FL 90.4 FL 91.5 FL Mean Corpuscular Hemoglobin 29.1 PG 28.7 PG 30.3 PG Mean Corpuscular Hemoglobin 32.2 % 31.8 % 33.1 % Concent Red Cell Distribution Width 16.8 % 16.2 % 16.6 % Platelet Count 165 TH/MM3 157 TH/MM3 158 TH/MM3 Mean Platelet Volume 8.7 FL 8.5 FL 9.1 FL Neutrophils (%) (Auto) 82.9 % 75.3 % Lymphocytes (%) (Auto) 5.8 % 12.2 % Monocytes (%) (Auto) 9.3 % 8.9 % Eosinophils (%) (Auto) 1.5 % 3.0 % Basophils (%) (Auto) 0.5 % 0.6 % Neutrophils # (Auto) 9.5 TH/MM3 6.7 TH/MM3 Lymphocytes # (Auto) 0.7 TH/MM3 1.1 TH/MM3 Monocytes # (Auto) 1.1 TH/MM3 0.8 TH/MM3 Eosinophils # (Auto) 0.2 TH/MM3 0.3 TH/MM3 Basophils # (Auto) 0.1 TH/MM3 0.1 TH/MM3 CBC Comment DIFF FINAL AUTO DIFF Differential Comment AUTO DIFF CONFIRMED Laboratory Tests Test 11/22/16 11/23/16 05:32 04:59 Sodium Level 144 MEQ/L 144 MEQ/L Potassium Level 3.9 MEQ/L 3.4 MEQ/L Chloride Level 100 MEQ/L 101 MEQ/L Carbon Dioxide Level 38.1 MEQ/L 38.9 MEQ/L Anion Gap 6 MEQ/L 4 MEQ/L Blood Urea Nitrogen 47 MG/DL 41 MG/DL Creatinine 1.17 MG/DL 1.18 MG/DL Estimat Glomerular Filtration 62 ML/MIN 61 ML/MIN Rate Random Glucose 132 MG/DL 99 MG/DL Calcium Level 8.2 MG/DL 8.5 MG/DL Phosphorus Level 2.9 MG/DL Magnesium Level 2.7 MG/DL Total Bilirubin 1.6 MG/DL 1.1 MG/DL Aspartate Amino Transf 22 U/L 22 U/L (AST/SGOT) Alanine Aminotransferase 85 U/L 63 U/L (ALT/SGPT) Alkaline Phosphatase 101 U/L 84 U/L Total Protein 6.7 GM/DL 6.5 GM/DL Albumin 2.0 GM/DL 1.8 GM/DL Microbiology Date/Time Procedure Status Source Growth 11/21/16 08:00 Urine Culture - Preliminary Resulted Urine Catheterized Urine Yeast Species 11/21/16 08:08 Gram Stain - Final Complete Sputum Endotracheal 11/21/16 08:08 Sputum Culture - Final Complete Sputum Endotracheal NO GROWTH IN 48 HOURS. 11/21/16 09:06 Aerobic Blood Culture - Preliminary Resulted Blood Peripheral NO GROWTH IN 2 DAYS 11/21/16 09:06 Anaerobic Blood Culture - Preliminary Resulted Blood Peripheral NO GROWTH IN 2 DAYS 11/21/16 09:10 Aerobic Blood Culture - Preliminary Resulted Blood Peripheral NO GROWTH IN 2 DAYS 11/21/16 09:10 Anaerobic Blood Culture - Preliminary Resulted Blood Peripheral NO GROWTH IN 2 DAYS Imaging Last Impressions Chest X-Ray 11/21/16 0000 Signed Impressions: Service Date/Time: Monday, November 21, 2016 07:28 - CONCLUSION: No significant change. Nickolas Jordan MD Head CT 11/19/16 0000 Signed Impressions: Service Date/Time: Saturday, November 19, 2016 12:42 - CONCLUSION: 1. Ventricular prominence as described above. This is stable in the interval. 2. There is no other significant interval change. Nahid Cazares MD FACR Liver Ultrasound 11/18/16 0000 Signed Impressions: Service Date/Time: Friday, November 18, 2016 08:04 - CONCLUSION: 1. Small bilateral pleural effusions. 2. Prominent somewhat sonodense liver without intrahepatic biliary ductal dilatation. Nahid Cazares MD FACR Physical Exam GENERAL: awake and alert, not in respiratory distress. On nasal O2 SKIN: Warm and dry. Has scattered purpuric lesions in his UE. HEAD: Atraumatic. Normocephalic. No temporal wasting, or tenderness. EYES: [place] conjunctiva. No petechia or hemorrhage. Pupils equal, round and reactive to light. Extraocular movements full and intact. No scleral icterus. No injection or drainage. EARS, NOSE AND THROAT: Nose without bleeding or purulent nasal discharge. No sinus tenderness. Moist mucosa, with some mild white coating on his tongue. NECK: Trachea midline. Supple and not tender, no meningeal signs CARDIOVASCULAR: Regular rate and rhythm. No murmurs, rubs or gallops heard RESPIRATORY: Coarse BS janice, equal BS. Decreased BS at the bases. No wheezing or rhonchi ABDOMEN: Soft, non-tender, nondistended. Bowel sounds present and normoactive. No guarding. No rebound. No organomegaly. EXTREMITIES: S/P L AKA with well healed stump. R foot - there is a dry eschar about quarter size over his 5th MT, and there is an ulcer on his R heel that is about 1 in x 0.5 inch with pink base, and no surrounding cellulitis and some serous drainage. On his R lateral leg is a large infected open wound that measures about 7 in x 2 in with necrotic fibrous bloody exudate, with foul odor , and he has some purplish discoloration of the skin surrounding the large wound. No joint effusion. No R calf tenderness. R foot slightly cool, but the rest of his RLE is warm. NEUROLOGICAL: Awake and alert. 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 No facial asymmetry, full EOM PSYCHIATRIC: Awake and cooperative LINE: No evidence of infection : Cabello in place, with sediment in his urine Assessment & Plan Remarks IMPRESSION Sepsis, source? - has bilateral infiltrates and hypoxemia, and likely with HCAP, possibly with CHF on top - has UTI (no [place] in [place]) - infected R leg wound, patient with underlying PVD Respiratory failure, PNA, CHF - has Proteus PNA Fevers PVD, infected wound R leg, ?decubitus - previous revascularization and L AKA UTI - has VRE and Natalie krusei on UC Infected wounds RLE, ?decubitus - C/S PSAE, Proteus, Enterococcus, Staph aureus Has MDR organisms on his C/S RECOMMENDATION Continue Zosyn, PSAE and other GNR Continue Zyvox, will cover VRE and Staph aureus - follow CBC Also on Diflucan - will follow repeat UC Wound care RLE wounds Follow C/S and adjust Abx Follow temps Monitor progress D/W Gogo Funes MD Nov 23, 2016 15:02
[2016-11-24] VITALS (17 sets, daily range): BP systolic 106–117; BP diastolic 51–58; PULSE 61–69; RESP 13–25; TEMP 98.6–98.8; O2SAT 93–100
[2016-11-24] MEDS: CHLORHEXIDINE GLUCONATE 2 % 1 PACK (2 CLOTHS) TOP SCH (02:40)
[2016-11-24] MEDS: PIPERACIL-TAZO 4.5 GM PREMIX 100 ML IV SCH ×4 (02:40→19:45)
[2016-11-24] MEDS: RESP: ALBUTEROL 2.5 MG/IPRATROPIUM 0.5 MG NEB (SCH) NEB ×4 (03:16→21:09)
[2016-11-24 03:39] LABS: ANION GAP 5 MEQ/L (5-15); AST (GOT) 26 U/L (15-37); AUTOMATED NEUTROPHIL # 6.6 TH/MM3 (1.8-7.7); BASOPHIL # 0.1 TH/MM3 (0-0.2); BASOPHIL % 0.7 % (0.0-2.0); BICARBONATE 35.8 MEQ/L (21.0-32.0); BLOOD UREA NITROGEN 34 MG/DL (7-18); CHLORIDE 104 MEQ/L (98-107); EOSINOPHIL # 0.3 TH/MM3 (0-0.4); GLOMERULAR FILTRATION RATE 63 ML/MIN (>89); HEMATOCRIT 27.4 % (39.0-51.0); HEMO FLAGS DIFF FINAL; LYMPH % 11.9 % (9.0-44.0); MAGNESIUM 2.8 MG/DL (1.5-2.5); MEAN CELL VOLUME 92.4 FL (80.0-100.0); MEAN CORPUSCULAR HEMOGLOBIN 29.2 PG (27.0-34.0); MEAN CORPUSCULAR HGB CONC 31.6 % (32.0-36.0); MONO % 6.7 % (0.0-8.0); NEUT % 77.7 % (16.0-70.0); PLATELET COUNT 150 TH/MM3 (150-450); POTASSIUM 3.8 MEQ/L (3.5-5.1); RED BLOOD COUNT 2.96 MIL/MM3 (4.50-5.90); RED CELL DISTRIBUTION WIDTH 16.8 % (11.6-17.2); SODIUM (NA) 145 MEQ/L (136-145); WHITE BLOOD COUNT 8.5 TH/MM3 (4.0-11.0)
[2016-11-24 03:41] LABS: APTT (PATIENT) 68.9 SEC (24.3-30.1)
[2016-11-24 03:42] LABS: ALKALINE PHOSPHATASE 84 U/L (45-117); ALT (GPT) 58 U/L (12-78); TOTAL BILIRUBIN ADULT 0.8 MG/DL (0.2-1.0)
[2016-11-24] MEDS: INSULIN ASPART SUPPLEMENTAL SCALE SQ SCH ×4 (07:00→19:49)
[2016-11-24] MEDS: FAMOTIDINE 20 MG TAB PO SCH ×2 (09:00→19:46)
[2016-11-24] MEDS: ESCITALOPRAM OXALATE 10 MG TAB PO SCH (09:00)
[2016-11-24] MEDS: LINEZOLID 600 MG TAB PO SCH ×2 (09:00→19:46)
[2016-11-24] MEDS: SODIUM CHLORIDE 0.9% FLUSH 10 ML FLUSH SCH ×2 (09:00→19:45)
--- NOTE | 2016-11-24 09:19 | HHI.IDPN ---
Subjective Subjective Remarks Notes reviewed Doing well post-extubation Sats ok on nasal O2 - on nasal O2 in SNF Temps ok BP ok Wound C/S - polymicrobial Repeat UC with lower colony count yeast Antibiotics Diflucan Zyvox Zosyn Past Medical History Chronic atrial fibrillation on Coumadin History of congestive heart failure ejection fraction on 03/2016 50-55% COPD Hypertension History of UTI Peripheral vascular disease Diabetic mellitus Chronic pain Bilateral diabetic foot ulcers History of osteomyelitis left lower extremity Past Surgical History Cholecystectomy Tonsillectomy Previous revascularization, has had stent placement S/P L AKA Jun 2016 Allergies: Coded Allergies: *MDRO Multi-Drug Resistant Organism (Verified Adverse Reaction, Unknown, MRSA, 11/21/16) MRSA (toe wound) - 01/27/16; (foot) - 05/24/16 MRSA PCR Screen POSITIVE - 05/26/16 VRE (urine)-11/17/16 Objective . Vital Signs Date Time Temp Pulse Resp B/P Pulse Ox O2 Delivery O2 Flow Rate FiO2 11/24/16 08:51 96 Nasal Cannula 2.00 11/24/16 06:00 67 11/24/16 05:00 62 25 110/53 93 11/24/16 04:00 64 11/24/16 04:00 98.7 64 13 108/53 93 11/24/16 03:00 67 15 107/52 94 11/24/16 02:00 63 11/24/16 02:00 63 24 106/53 94 11/24/16 01:00 63 24 106/51 94 11/24/16 00:00 98.7 64 25 114/53 94 11/24/16 00:00 64 11/24/16 00:00 64 25 114/53 94 11/23/16 22:00 66 11/23/16 20:29 96 Nasal Cannula 2.00 11/23/16 20:00 97.6 63 25 106/55 94 11/23/16 20:00 63 11/23/16 19:00 67 29 114/58 96 11/23/16 18:00 67 27 128/63 96 11/23/16 18:00 67 11/23/16 17:00 65 26 105/51 95 11/23/16 16:00 69 11/23/16 16:00 98.7 69 22 116/58 96 11/23/16 15:00 63 25 102/54 94 11/23/16 14:00 68 26 113/55 96 11/23/16 14:00 65 11/23/16 13:00 68 29 112/54 95 11/23/16 12:00 63 11/23/16 12:00 98.4 63 25 108/54 96 11/23/16 10:00 66 22 112/53 97 11/23/16 10:00 66 11/23/16 11/23/16 11/24/16 15:00 23:00 07:00 Intake Total 650 ml 681 ml 502 ml Output Total 500 ml 500 ml 550 ml Balance 150 ml 181 ml -48 ml Intake Oral 500 ml 250 ml 250 ml IV Total 150 ml 431 ml 252 ml Output Urine Total 500 ml 500 ml 550 ml # Bowel Movements 1 1 . Laboratory Tests Test 11/23/16 11/23/16 11/24/16 04:59 10:46 03:00 White Blood Count 9.0 TH/MM3 8.8 TH/MM3 8.5 TH/MM3 Red Blood Count 3.01 MIL/MM3 3.07 MIL/MM3 2.96 MIL/MM3 Hemoglobin 8.6 GM/DL 9.3 GM/DL 8.6 GM/DL Hematocrit 27.2 % 28.1 % 27.4 % Mean Corpuscular Volume 90.4 FL 91.5 FL 92.4 FL Mean Corpuscular Hemoglobin 28.7 PG 30.3 PG 29.2 PG Mean Corpuscular Hemoglobin 31.8 % 33.1 % 31.6 % Concent Red Cell Distribution Width 16.2 % 16.6 % 16.8 % Platelet Count 157 TH/MM3 158 TH/MM3 150 TH/MM3 Mean Platelet Volume 8.5 FL 9.1 FL 8.7 FL Neutrophils (%) (Auto) 75.3 % 77.7 % Lymphocytes (%) (Auto) 12.2 % 11.9 % Monocytes (%) (Auto) 8.9 % 6.7 % Eosinophils (%) (Auto) 3.0 % 3.0 % Basophils (%) (Auto) 0.6 % 0.7 % Neutrophils # (Auto) 6.7 TH/MM3 6.6 TH/MM3 Lymphocytes # (Auto) 1.1 TH/MM3 1.0 TH/MM3 Monocytes # (Auto) 0.8 TH/MM3 0.6 TH/MM3 Eosinophils # (Auto) 0.3 TH/MM3 0.3 TH/MM3 Basophils # (Auto) 0.1 TH/MM3 0.1 TH/MM3 CBC Comment AUTO DIFF DIFF FINAL Differential Comment AUTO DIFF CONFIRMED Laboratory Tests Test 11/23/16 11/24/16 04:59 03:00 Sodium Level 144 MEQ/L 145 MEQ/L Potassium Level 3.4 MEQ/L 3.8 MEQ/L Chloride Level 101 MEQ/L 104 MEQ/L Carbon Dioxide Level 38.9 MEQ/L 35.8 MEQ/L Anion Gap 4 MEQ/L 5 MEQ/L Blood Urea Nitrogen 41 MG/DL 34 MG/DL Creatinine 1.18 MG/DL 1.15 MG/DL Estimat Glomerular Filtration 61 ML/MIN 63 ML/MIN Rate Random Glucose 99 MG/DL 141 MG/DL Calcium Level 8.5 MG/DL 8.4 MG/DL Total Bilirubin 1.1 MG/DL 0.8 MG/DL Aspartate Amino Transf 22 U/L 26 U/L (AST/SGOT) Alanine Aminotransferase 63 U/L 58 U/L (ALT/SGPT) Alkaline Phosphatase 84 U/L 84 U/L Total Protein 6.5 GM/DL 6.8 GM/DL Albumin 1.8 GM/DL 1.9 GM/DL Phosphorus Level 3.4 MG/DL Magnesium Level 2.8 MG/DL Imaging Last Impressions Chest X-Ray 11/21/16 0000 Signed Impressions: Service Date/Time: Monday, November 21, 2016 07:28 - CONCLUSION: No significant change. Nickolas Jordan MD Head CT 11/19/16 0000 Signed Impressions: Service Date/Time: Saturday, November 19, 2016 12:42 - CONCLUSION: 1. Ventricular prominence as described above. This is stable in the interval. 2. There is no other significant interval change. Nahid Cazares MD FACR Liver Ultrasound 11/18/16 0000 Signed Impressions: Service Date/Time: Friday, November 18, 2016 08:04 - CONCLUSION: 1. Small bilateral pleural effusions. 2. Prominent somewhat sonodense liver without intrahepatic biliary ductal dilatation. Nahid Cazares MD FACR Physical Exam GENERAL: awake and alert, on nasal O2, NAD SKIN: Warm and dry. Has scattered purpuric lesions in his UE. HEAD: Atraumatic. Normocephalic. No temporal wasting, or tenderness. EYES: [place] conjunctiva. No petechia or hemorrhage. Pupils equal, round and reactive to light. Extraocular movements full and intact. No scleral icterus. No injection or drainage. EARS, NOSE AND THROAT: Nose without bleeding or purulent nasal discharge. No sinus tenderness. Moist mucosa, with some mild white coating on his tongue. NECK: Trachea midline. Supple and not tender, no meningeal signs CARDIOVASCULAR: Regular rate and rhythm. No murmurs, rubs or gallops heard RESPIRATORY: Coarse BS janice, equal BS. Decreased BS at the bases. No wheezing or rhonchi ABDOMEN: Soft, non-tender, nondistended. Bowel sounds present and normoactive. No guarding. No rebound. No organomegaly. EXTREMITIES: S/P L AKA with well healed stump. R foot - there is a dry eschar about quarter size over his 5th MT, and there is an ulcer on his R heel that is about 1 in x 0.5 inch with pink base, and no surrounding cellulitis and some serous drainage. On his R lateral leg is a large infected open wound with intact dressing. No joint effusion. No R calf tenderness. R foot slightly cool, but the rest of his RLE is warm. NEUROLOGICAL: Awake and alert. 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 No facial asymmetry, full EOM PSYCHIATRIC: Awake and cooperative LINE: No evidence of infection : Cab[place] in place, with sediment in his urine Assessment & Plan Remarks IMPRESSION Sepsis, source? - has bilateral infiltrates and hypoxemia, and likely with HCAP, possibly with CHF on top - has UTI ([place] in [place]) - infected R leg wound, patient with underlying PVD Respiratory failure, PNA, CHF - has Proteus PNA Fevers PVD, infected wound R leg, ?decubitus - previous revascularization and L AKA UTI - has VRE and Natalie krusei on UC Infected wounds RLE, ?decubitus - C/S PSAE, Proteus, Enterococcus, Staph aureus Has MDR organisms on his C/S RECOMMENDATION Continue Zosyn, PSAE, MSSA and other GNR - in wounds and sputum Continue Zyvox, will cover VRE - give 7 days Continue Diflucan Wound care RLE wounds Follow temps Monitor progress Continue Abx this weekend, reexamine wound on Sunday and decide on further Abx need Dr Corina Ledesma covering this weekend if needed Dim[place],Gogo G MD Nov 24, 2016 09:19
[2016-11-24] MEDS: CARVEDILOL 3.125 MG TAB PO SCH ×2 (09:56→19:46)
[2016-11-24] MEDS: FLUCONAZOLE 100 MG TAB PO SCH (09:56)
[2016-11-24] MEDS: TAMSULOSIN HCL 0.4 MG CAP PO SCH (09:56)
[2016-11-24] MEDS: POTASSIUM CHLORIDE 20 MEQ CONTROLLED RELEASE TAB PO SCH (09:56)
[2016-11-24] MEDS: ASCORBIC ACID 500 MG TAB PO SCH (09:56)
[2016-11-24] MEDS: DOCUSATE SODIUM 50 MG/SENNA 8.6 MG TAB PO SCH ×2 (09:56→19:46)
[2016-11-24] MEDS: GABAPENTIN 300 MG CAP PO SCH ×3 (09:56→17:19)
[2016-11-24] MEDS: FUROSEMIDE 20 MG TAB PO SCH ×2 (09:56→17:19)
[2016-11-24] MEDS: ARTIFICIAL TEARS OPTH SOLN 15 ML BTL EACH EYE SCH ×3 (09:57→18:00)
--- NOTE | 2016-11-24 12:35 | HHI.PR ---
Subjective Remarks patient awake and alert, very likeable, no pain complaint- waiting for food - per staff- needs to be fed no fever or chills, no complains Objective Vitals Vital Signs Date Time Temp Pulse Resp B/P Pulse Ox O2 Delivery O2 Flow Rate FiO2 11/24/16 12:00 64 11/24/16 12:00 98.8 64 24 111/54 97 11/24/16 10:00 67 11/24/16 08:51 96 Nasal Cannula 2.00 11/24/16 08:00 98.8 69 24 117/58 97 11/24/16 08:00 64 11/24/16 06:00 67 11/24/16 05:00 62 25 110/53 93 11/24/16 04:00 64 11/24/16 04:00 98.7 64 13 108/53 93 11/24/16 03:00 67 15 107/52 94 11/24/16 02:00 63 11/24/16 02:00 63 24 106/53 94 11/24/16 01:00 63 24 106/51 94 11/24/16 00:00 98.7 64 25 114/53 94 11/24/16 00:00 64 11/24/16 00:00 64 25 114/53 94 11/23/16 22:00 66 11/23/16 20:29 96 Nasal Cannula 2.00 11/23/16 20:00 97.6 63 25 106/55 94 11/23/16 20:00 63 11/23/16 19:00 67 29 114/58 96 11/23/16 18:00 67 27 128/63 96 11/23/16 18:00 67 11/23/16 17:00 65 26 105/51 95 11/23/16 16:00 69 11/23/16 16:00 98.7 69 22 116/58 96 11/23/16 15:00 63 25 102/54 94 11/23/16 14:00 68 26 113/55 96 11/23/16 14:00 65 11/23/16 13:00 68 29 112/54 95 I/O 11/23/16 11/23/16 11/23/16 11/24/16 11/24/16 11/24/16 07:00 15:00 23:00 07:00 15:00 23:00 Intake Total 259 ml 650 ml 681 ml 502 ml Output Total 350 ml 500 ml 500 ml 550 ml Balance -91 ml 150 ml 181 ml -48 ml Intake Oral 125 ml 500 ml 250 ml 250 ml IV Total 134 ml 150 ml 431 ml 252 ml Output Urine Total 350 ml 500 ml 500 ml 550 ml # Bowel Movements 1 1 Result Diagram: 11/24/16 0300 11/24/16 0300 Imaging Last Impressions Chest X-Ray 11/21/16 0000 Signed Impressions: Service Date/Time: Monday, November 21, 2016 07:28 - CONCLUSION: No significant change. Nickolas Jordan MD Head CT 11/19/16 0000 Signed Impressions: Service Date/Time: Saturday, November 19, 2016 12:42 - CONCLUSION: 1. Ventricular prominence as described above. This is stable in the interval. 2. There is no other significant interval change. Nahid Cazares MD FACR Liver Ultrasound 11/18/16 0000 Signed Impressions: Service Date/Time: Friday, November 18, 2016 08:04 - CONCLUSION: 1. Small bilateral pleural effusions. 2. Prominent somewhat sonodense liver without intrahepatic biliary ductal dilatation. Nahid Cazares MD FACR Objective Remarks awake and alert, oriented x 3, speech clear but soft anicteric lungs decreased breath sounds regular rhythm abdomen- flabby soft, good bowel sounds, nontender left AKA condom catheter in place, LE no edema A/P Problem List: (1) PVD (peripheral vascular disease) ICD Code: I73.9 Status: Acute (2) Acute systolic (congestive) heart failure ICD Code: I50.21 Status: Acute (3) GI bleed ICD Code: K92.2 Status: Acute (4) DM (diabetes mellitus) ICD Code: E11.9 Status: Acute (5) Acute respiratory failure ICD Code: J96.00 Status: Acute Assessment and Plan Sepsis, source- T down ?UTI - has VRE and Natalie krusei on UC Infected wounds RLE, ?decubitus- C/S PSAE, Proteus, Enterococcus, Staph aureus - has bilateral infiltrates and hypoxemia, and likely with HCAP, possibly with CHF on top - has UTI ([place] cab[place] in [place]) - infected R leg wound, patient with underlying PVD PNA, - has Proteus PNA PVD, infected wound R leg, ?decubitus - previous revascularization and L AKA Continue Zosyn, PSAE, MSSA and other GNR - in wounds and sputum Continue Zyvox, will cover VRE - give 7 days Continue Diflucan Wound care RLE wounds Depression Chronic pain syndrome History of TIA Monitor neuro status and limit sedatives. 11/19 Ct brain: No acute findings. Resume home medications Neurontin 300 mg 3 times a day for neuropathy Resume Lexapro 10 mg by mouth daily for depression [place]/morphine for pain management Pulm: Obstructive sleep apnea Chronic type I hypoxic respiratory failure - 2 L nasal cannula History COPD Continue with oxygen keep sat >92%, Continue with bronchodilators scheduled every 6 hours and every 2 hours when necessary dyspnea NIPPV PRN for resp distress. Noted on 2 L nasal cannula chronically home at night CV: Coronary artery disease - heart catheterization 01/24 revealed three-vessel coronary disease unamenable to intervention. Seen by Dr. Montgomery. Signed off Acute systolic heart failure -ejection fraction 35% Hypertension Dyslipidemia Peripheral vascular disease - Chronic atrial fibrillation currently in normal sinus rhythm Monitor HR and BP keep MAP>65mmHg. On Coreg 3.125 mg BID/home medication with holding parameters Echo showed EF 35-40%, mild TR. LV dysfunction. RV dilatation. Which is a change from 55% 01/24, Cards has followed and signed off- Dr. Montgomery. Not on statin due to elevated LFT's. On Lipitor 20 mill grams by mouth daily at home On amiodarone 200 mg by mouth daily/home medication Seen by Dr. Johansen for right lower extremity wound. Very poor anterior tibial blood flow. Occlusive peroneal/posterior tibial disease. BPH Resume Flomax 0.4 mill grams by mouth daily/home medication Currently on condom catheter Monitor renal function, I/O's, electrolytes replacement per protocol. Renal function is improving, monitor BMP, on Lasix 40mg IV BID- change to po GI: Gastroesophageal reflux disease Hiatal hernia History of Kuhn's esophagus History of bowel dysmotility and chronic Reglan On mechanical soft heart healthy diet per speech Monitor LFT;s..trending down, Hepatitis profile is negative. US liver 11/18: No intrahepatic biliary ductal dilatation. On Reglan 10 mg 4 times a day as needed here in the hospital. Scheduled Reglan at senior living Currently on Pepcid. On Prilosec 20 mg by mouth daily at senior living Chronic warfarin Acute blood loss anemia Admission with warfarin toxicity Monitor CBC, Coags, s/p transfusion 2units PRBC, 6u FFP, Vitamin K 10mg x1 on arrival s/p transfusion 1unit PRBC 11/19 Last INR is 1.5. Off Coumadin due to anemia GI will not do endoscopy of secondary to cardiac issues Restart anticoagulation with heparin drip.- 11/23 Endo: Diabetes mellitus SSI with accuchecks Currently on sliding scale insulin Accu-Cheks before meals/at bedtime. 2 units of sliding scale insulin past 24 hours. On Levemir 15 units at night with sliding scale insulin at senior living GI prophylaxis with Pepcid DVT prophylaxis - coagulopathic with INR 1.5 on 11/22 Problem Qualifiers (1) Acute respiratory failure: Qualified Code: J96.00 - Acute respiratory failure, unspecified whether with hypoxia or hypercapnia Ben Chang MD Nov 24, 2016 12:35 Qualified Code: J96.00 - Acute respiratory failure, unspecified whether with hypoxia or hypercapnia Ben Chang MD Nov 24, 2016 12:35
[2016-11-24] MEDS: HEPARIN-D5W INJ 250 ML IV SCH (17:17)
[2016-11-25] VITALS (19 sets, daily range): BP systolic 111–153; BP diastolic 53–85; PULSE 62–77; RESP 20–35; TEMP 96.9–98.7; O2SAT 91–99
[2016-11-25] MEDS: PIPERACIL-TAZO 4.5 GM PREMIX 100 ML IV SCH ×4 (00:43→20:44)
[2016-11-25] MEDS: HEPARIN-D5W INJ 250 ML IV SCH ×2 (00:50→20:47)
[2016-11-25] MEDS: RESP: ALBUTEROL 2.5 MG/IPRATROPIUM 0.5 MG NEB (SCH) NEB ×3 (03:47→19:44)
[2016-11-25] MEDS: CHLORHEXIDINE GLUCONATE 2 % 1 PACK (2 CLOTHS) TOP SCH (04:00)
[2016-11-25 04:59] LABS: APTT (PATIENT) 68.1 SEC (24.3-30.1)
[2016-11-25] MEDS: INSULIN ASPART SUPPLEMENTAL SCALE SQ SCH ×4 (06:18→20:59)
[2016-11-25] MEDS: ARTIFICIAL TEARS OPTH SOLN 15 ML BTL EACH EYE SCH ×3 (09:00→18:04)
[2016-11-25] MEDS: SODIUM CHLORIDE 0.9% FLUSH 10 ML FLUSH SCH ×2 (09:00→20:53)
[2016-11-25] MEDS: FAMOTIDINE 20 MG TAB PO SCH ×2 (09:36→20:44)
[2016-11-25] MEDS: POTASSIUM CHLORIDE 20 MEQ CONTROLLED RELEASE TAB PO SCH (09:36)
[2016-11-25] MEDS: LINEZOLID 600 MG TAB PO SCH ×2 (09:36→20:44)
[2016-11-25] MEDS: DOCUSATE SODIUM 50 MG/SENNA 8.6 MG TAB PO SCH ×2 (09:36→20:44)
[2016-11-25] MEDS: ASCORBIC ACID 500 MG TAB PO SCH (09:36)
[2016-11-25] MEDS: FUROSEMIDE 20 MG TAB PO SCH (09:36)
[2016-11-25] MEDS: TAMSULOSIN HCL 0.4 MG CAP PO SCH (09:36)
[2016-11-25] MEDS: FLUCONAZOLE 100 MG TAB PO SCH (09:36)
[2016-11-25] MEDS: CARVEDILOL 3.125 MG TAB PO SCH ×2 (09:36→20:44)
[2016-11-25] MEDS: GABAPENTIN 300 MG CAP PO SCH ×3 (11:42→18:03)
--- NOTE | 2016-11-25 14:26 | HHI.PR ---
Subjective Remarks in SR, tachypneic, RR 30s awake but appears weak, slight lethargy 02 sat 86% at 2 LNC, + loose stools Objective Vitals Vital Signs Date Time Temp Pulse Resp B/P Pulse Ox O2 Delivery O2 Flow Rate FiO2 11/25/16 13:34 68 11/25/16 11:00 98.5 74 32 138/65 92 11/25/16 10:00 77 35 137/65 91 11/25/16 09:00 72 31 129/62 93 11/25/16 08:00 98.3 72 25 135/65 94 11/25/16 07:23 97 Nasal Cannula 3.00 11/25/16 06:00 65 11/25/16 04:00 98.7 68 20 122/60 93 11/25/16 04:00 68 11/25/16 02:00 62 11/25/16 00:00 64 11/25/16 00:00 98.4 64 22 116/56 93 11/24/16 22:00 63 11/24/16 21:11 100 Nasal Cannula 2.00 11/24/16 20:00 66 11/24/16 20:00 98.6 66 20 115/56 94 11/24/16 18:00 68 11/24/16 16:00 98.8 61 24 115/54 97 11/24/16 16:00 64 I/O 11/24/16 11/24/16 11/24/16 11/25/16 11/25/16 11/25/16 07:00 15:00 23:00 07:00 15:00 23:00 Intake Total 502 ml 430 ml 499 ml 220 ml 322 ml Output Total 550 ml 450 ml 125 ml 300 ml Balance -48 ml -20 ml 374 ml 220 ml 22 ml Intake Oral 250 ml 280 ml 200 ml 120 ml IV Total 252 ml 150 ml 299 ml 220 ml 202 ml Output Urine Total 550 ml 450 ml 125 ml 300 ml # Voids 2 # Bowel Movements 1 1 0 1 2 Result Diagram: 11/24/16 0300 11/24/16 0300 Imaging Last Impressions Chest X-Ray 11/21/16 0000 Signed Impressions: Service Date/Time: Monday, November 21, 2016 07:28 - CONCLUSION: No significant change. Nickolas Jordan MD Head CT 11/19/16 0000 Signed Impressions: Service Date/Time: Saturday, November 19, 2016 12:42 - CONCLUSION: 1. Ventricular prominence as described above. This is stable in the interval. 2. There is no other significant interval change. Nahid Cazares MD FACR Liver Ultrasound 11/18/16 0000 Signed Impressions: Service Date/Time: Friday, November 18, 2016 08:04 - CONCLUSION: 1. Small bilateral pleural effusions. 2. Prominent somewhat sonodense liver without intrahepatic biliary ductal dilatation. Nahid Cazares MD FACR Objective Remarks awake oriented x 3,, speech soft, tachypneic speech clear but soft anicteric lungs + fine rales regular rhythm abdomen- flabby soft, good bowel sounds, nontender left AKA, right LE- with necrotic open wounds bilateral buttocks and cheeks of buttokcs + wounds/decubiti condom catheter in place, LE no edema A/P Problem List: (1) PVD (peripheral vascular disease) ICD Code: I73.9 Status: Acute (2) Acute systolic (congestive) heart failure ICD Code: I50.21 Status: Acute (3) GI bleed ICD Code: K92.2 Status: Acute (4) DM (diabetes mellitus) ICD Code: E11.9 Status: Acute (5) Acute respiratory failure ICD Code: J96.00 Status: Acute Assessment and Plan 66 years old male Sepsis, T down - muttiple sources UTI - has VRE and Natalie krusei on UC Infected wounds RLE, ?decubitus- C/S PSAE, Proteus, Enterococcus, Staph aureus - has bilateral infiltrates and hypoxemia, and likely with HCAP, possibly with CHF on top - has UTI ([place] cab[place]) - infected R leg wound, patient with underlying PVD PNA, - has Proteus PNA PVD, infected wound R leg,C/S PSAE, Proteus, entoerococcus - previous revascularization and L AKA Continue Zosyn, PSAE, MSSA and other GNR - in wounds and sputum Continue Zyvox, will cover VRE - give 7 days till 11/27 Continue Diflucan Wound care RLE wounds- monitor closely- ? BKA Acute respiratory failure with Acute systolic heart failure -ejection fraction 35%- - tachypneic, abdominal breathing- acute Pulmonary edema Coronary artery disease - heart catheterization 01/24 revealed three-vessel coronary disease unamenable to intervention. Seen by Dr. Montgomery. Signed off Hypertension Dyslipidemia Peripheral vascular disease - Chronic atrial fibrillation - in SR tachypneic- give lasix 40 mg IV x 1 change back to IV q 12. Stat ABG. Stat CXR Monitor HR and BP keep MAP>65mmHg. On Coreg 3.125 mg BID/home medication with holding parameters Echo showed EF 35-40%, mild TR. LV dysfunction. RV dilatation. Which is a change from 55% 01/24, Cards has followed and signed off- Dr. Montgomery. Not on statin due to elevated LFT's. On Lipitor 20 mill grams by mouth daily at home On amiodarone 200 mg by mouth daily/home medication Increase )2 to keep sats greater than 90% Transfer to [facility] [place] close monitoring- impending respiratory failure Obstructive sleep apnea Chronic type I hypoxic respiratory failure - 2 L nasal cannula History COPD Continue with oxygen keep sat >92%, Continue with bronchodilators scheduled every 6 hours and every 2 hours when necessary dyspnea NIPPV PRN for resp distress. Noted on 2 L nasal cannula chronically home at night Depression Chronic pain syndrome History of TIA Monitor neuro status and limit sedatives. 11/19 Ct brain: No acute findings. Resume home medications Neurontin 300 mg 3 times a day for neuropathy Resume Lexapro 10 mg by mouth daily for depression [place]/morphine for pain management Seen by Dr. Johansen for right lower extremity wound. Very poor anterior tibial blood flow. Occlusive peroneal/posterior tibial disease. BPH Resume Flomax 0.4 mill grams by mouth daily/home medication Currently on condom catheter Monitor renal function, I/O's, electrolytes replacement per protocol. Renal function is improving, monitor BMP, on Lasix 40mg IV BID- change to po GI: Gastroesophageal reflux disease Hiatal hernia History of Kuhn's esophagus History of bowel dysmotility and chronic Reglan On mechanical soft heart healthy diet per speech Monitor LFT;s..trending down, Hepatitis profile is negative. US liver 11/18: No intrahepatic biliary ductal dilatation. On Reglan 10 mg 4 times a day as needed here in the hospital. Scheduled Reglan at group home Currently on Pepcid. On Prilosec 20 mg by mouth daily at group home Heme: Chronic warfarin Acute blood loss anemia Admission with warfarin toxicity Monitor CBC, Coags, s/p transfusion 2units PRBC, 6u FFP, Vitamin K 10mg x1 on arrival s/p transfusion 1unit PRBC 11/19 Last INR is 1.5. Off Coumadin due to anemia GI will not do endoscopy of secondary to cardiac issues Restarted anticoagulation with heparin drip. 11/23 Endo: Diabetes mellitus SSI with accuchecks Currently on sliding scale insulin Accu-Cheks before meals/at bedtime. 2 units of sliding scale insulin past 24 hours. On Levemir 15 units at night with sliding scale insulin at group home GI prophylaxis with Pepcid DVT prophylaxis - coagulopathic with INR 1.5 on 11/22 Problem Qualifiers (1) Acute respiratory failure: Qualified Code: J96.00 - Acute respiratory failure, unspecified whether with hypoxia or hypercapnia Ben Chang MD Nov 25, 2016 14:26 (1) Acute respiratory failure: Qualified Code: J96.00 - Acute respiratory failure, unspecified whether with hypoxia or hypercapnia Ben Chang MD Nov 25, 2016 14:26
[2016-11-25] MEDS ORDERED: FUROSEMIDE 40 MG/4 ML VIAL IV PUSH ONE (15:00)
--- NOTE | 2016-11-25 16:00 | RADRPT ---
EXAM DATE/TIME: 11/25/2016 15:41 [facility] COMPARISON: CHEST SINGLE AP, November 21, 2016, 7:28. INDICATIONS : Shortness of breath. MEDICAL HISTORY : Cardiovascular disease. Chronic obstructive pulmonary disease. Diabetes mellitus type II. SURGICAL HISTORY : None. ENCOUNTER: Initial ACUITY: 1 day PAIN SCORE: Non-responsive. LOCATION: Bilateral chest FINDINGS: Patient has been extubated in the imaged. Redemonstration of diffuse bilateral patchy airspace and in terstitial opacities. Probable trace bilateral pleural effusions. Cardiac silhouette is enlarged and pulmonary vascularity is indistinct. Remainder of the exam is unchanged. CONCLUSION: 1. Status post extubation and removal of NGT. 2. Stable patchy bilateral interstitial and airspace disease with probable trace bilateral pleural ef fusions. Differential considerations include pulmonary edema versus diffuse infection versus ARDS. Richard Gonzalez MD on November 25, 2016 at 15:55 Board Certified Radiologist. This report was verified electronically.
[2016-11-25 16:21] LABS: AUTOMATED NEUTROPHIL # 7.5 TH/MM3 (1.8-7.7); BASOPHIL # 0.1 TH/MM3 (0-0.2); BASOPHIL % 0.8 % (0.0-2.0); EOSINOPHIL # 0.2 TH/MM3 (0-0.4); EOSINOPHIL % 1.9 % (0.0-4.0); HEMATOCRIT 31.1 % (39.0-51.0); HEMO FLAGS DIFF FINAL; LYMPHOCYTE # 0.6 TH/MM3 (1.0-4.8); MEAN CELL VOLUME 90.6 FL (80.0-100.0); MEAN CORPUSCULAR HEMOGLOBIN 29.4 PG (27.0-34.0); MEAN CORPUSCULAR HGB CONC 32.4 % (32.0-36.0); MONO % 4.7 % (0.0-8.0); NEUT % 85.6 % (16.0-70.0); PLATELET COUNT 190 TH/MM3 (150-450); RED BLOOD COUNT 3.43 MIL/MM3 (4.50-5.90); RED CELL DISTRIBUTION WIDTH 15.9 % (11.6-17.2); WHITE BLOOD COUNT 8.7 TH/MM3 (4.0-11.0)
[2016-11-25 16:45] LABS: BICARBONATE 30.7 MEQ/L (21.0-32.0); POTASSIUM 4.1 MEQ/L (3.5-5.1)
[2016-11-25] MEDS ORDERED: FUROSEMIDE 20 MG/2 ML VIAL IV PUSH SCH (18:00)
[2016-11-25] MEDS: FUROSEMIDE 20 MG/2 ML VIAL IV PUSH SCH (18:04)
[2016-11-25 21:03] LABS: C. DIFF EPI 027 PRESUMPTIVE NEGATIVE (NEGATIVE); C. DIFF TOXIN PCR NEGATIVE (NEGATIVE)
[2016-11-26] VITALS (21 sets, daily range): BP systolic 129–160; BP diastolic 60–67; PULSE 58–77; RESP 24–33; TEMP 97.1–98.8; O2SAT 93–100
[2016-11-26] MEDS: CHLORHEXIDINE GLUCONATE 2 % 1 PACK (2 CLOTHS) TOP SCH (02:56)
[2016-11-26] MEDS: PIPERACIL-TAZO 4.5 GM PREMIX 100 ML IV SCH ×4 (02:56→20:00)
[2016-11-26] MEDS: RESP: ALBUTEROL 2.5 MG/IPRATROPIUM 0.5 MG NEB (SCH) NEB ×4 (03:32→21:26)
[2016-11-26 05:41] LABS: HEMATOCRIT 27.7 % (39.0-51.0); MEAN CELL VOLUME 90.7 FL (80.0-100.0); MEAN CORPUSCULAR HEMOGLOBIN 28.9 PG (27.0-34.0); MEAN CORPUSCULAR HGB CONC 31.8 % (32.0-36.0); PLATELET COUNT 174 TH/MM3 (150-450); RED BLOOD COUNT 3.05 MIL/MM3 (4.50-5.90); REVIEW FLAG FINAL; WHITE BLOOD COUNT 7.4 TH/MM3 (4.0-11.0)
[2016-11-26] MEDS: INSULIN ASPART SUPPLEMENTAL SCALE SQ SCH ×4 (06:01→21:00)
[2016-11-26 06:07] LABS: APTT (PATIENT) 78.8 SEC (24.3-30.1)
[2016-11-26] MEDS: SODIUM CHLORIDE 0.9% FLUSH 10 ML FLUSH SCH ×2 (08:31→21:00)
[2016-11-26] MEDS: FLUCONAZOLE 100 MG TAB PO SCH (08:31)
[2016-11-26] MEDS: TAMSULOSIN HCL 0.4 MG CAP PO SCH (08:31)
[2016-11-26] MEDS: GABAPENTIN 300 MG CAP PO SCH ×3 (08:31→16:54)
[2016-11-26] MEDS: FAMOTIDINE 20 MG TAB PO SCH (08:31)
[2016-11-26] MEDS: ARTIFICIAL TEARS OPTH SOLN 15 ML BTL EACH EYE SCH ×3 (08:31→16:55)
[2016-11-26] MEDS: FUROSEMIDE 20 MG/2 ML VIAL IV PUSH SCH ×2 (08:31→16:54)
[2016-11-26] MEDS: CARVEDILOL 3.125 MG TAB PO SCH (08:31)
[2016-11-26] MEDS: POTASSIUM CHLORIDE 20 MEQ CONTROLLED RELEASE TAB PO SCH (08:31)
[2016-11-26] MEDS: DOCUSATE SODIUM 50 MG/SENNA 8.6 MG TAB PO SCH ×2 (08:32→21:00)
[2016-11-26] MEDS: ASCORBIC ACID 500 MG TAB PO SCH (08:32)
[2016-11-26] MEDS: LINEZOLID 600 MG TAB PO SCH (08:32)
--- NOTE | 2016-11-26 11:29 | HHI.PR ---
Objective Vitals Result Diagram: 11/26/16 0426 11/25/16 1548 Imaging Assessment to: Continue Cabello insert reason: ICU Pt Getting Diuretics Ben Chang MD Nov 26, 2016 11:29 11/26/16 06:00 69 11/26/16 05:00 65 11/26/16 04:00 61 11/26/16 03:00 97.1 63 27 129/60 100 11/26/16 03:00 63 11/26/16 02:00 62 11/26/16 01:00 58 11/26/16 00:00 61 11/25/16 23:00 62 11/25/16 23:00 96.9 62 28 111/53 97 11/25/16 22:00 62 11/25/16 21:00 72 11/25/16 20:00 67 11/25/16 19:47 99 Venturi Mask 6.00 50 11/25/16 19:00 62 11/25/16 19:00 97.8 67 28 127/60 97 11/25/16 19:00 97.8 67 11/25/16 16:00 72 11/25/16 15:00 73 11/25/16 15:00 98.7 74 26 153/85 91 11/25/16 14:00 71 11/25/16 13:34 68 I/O 11/25/16 11/25/16 11/25/16 11/26/16 11/26/16 11/26/16 07:00 15:00 23:00 07:00 15:00 23:00 Intake Total 220 ml 322 ml 461 ml 276 ml Output Total 300 ml 450 ml 350 ml Balance 220 ml 22 ml 11 ml -74 ml Intake Oral 120 ml 120 ml 120 ml IV Total 220 ml 202 ml 341 ml 156 ml Output Urine Total 300 ml 450 ml 350 ml # Voids 2 # Bowel Movements 1 2 2 0 Result Diagram: 11/26/16 0426 11/25/16 1548 Imaging Last Impressions Chest X-Ray 11/25/16 0000 Signed Impressions: Service Date/Time: Friday, November 25, 2016 15:41 - CONCLUSION: 1. Status post extubation and removal of NGT. 2. Stable patchy bilateral interstitial and airspace disease with probable trace bilateral pleural effusions. Differential considerations include pulmonary edema versus diffuse infection versus ARDS. Richard Gonzalez MD Head CT 11/19/16 0000 Signed Impressions: Service Date/Time: Saturday, November 19, 2016 12:42 - CONCLUSION: 1. Ventricular prominence as described above. This is stable in the interval. 2. There is no other significant interval change. Nahid Cazares MD FACR Liver Ultrasound 11/18/16 0000 Signed Impressions: Service Date/Time: Friday, November 18, 2016 08:04 - CONCLUSION: 1. Small bilateral pleural effusions. 2. Prominent somewhat sonodense liver without intrahepatic biliary ductal dilatation. Nahid Cazares MD FACR Objective Remarks awake oriented x 3,, speech soft speech clear but soft anicteric lungs + fine rales regular rhythm abdomen- flabby soft, good bowel sounds, nontender left AKA, right LE- with necrotic open wounds bilateral buttocks and cheeks of buttocks + wounds/decubiti condom catheter in place, LE no edema Urinary Catheter: Yes Assessment to: Continue Cabello insert reason: ICU Pt Getting Diuretics Date of Insertion: Nov 25, 2016 A/P Problem List: (1) PVD (peripheral vascular disease) ICD Code: I73.9 Status: Acute (2) Acute systolic (congestive) heart failure ICD Code: I50.21 Status: Acute (3) GI bleed ICD Code: K92.2 Status: Acute (4) DM (diabetes mellitus) ICD Code: E11.9 Status: Acute (5) Acute respiratory failure ICD Code: J96.00 Status: Acute Assessment and Plan 66 years old male Sepsis, T down - muttiple sources UTI - has VRE and Natalie krusei on UC Infected wounds RLE, ?decubitus- C/S PSAE, Proteus, Enterococcus, Staph aureus - has bilateral infiltrates and hypoxemia, and likely with HCAP, possibly with CHF on top - has U[place] ([place] cab[place]) - infected R leg wound, patient with underlying PVD PNA, - has Proteus PNA PVD, infected wound R leg,C/S PSAE, Proteus, entoerococcus - previous revascularization and L AKA Continue Zosyn, PSAE, MSSA and other GNR - in wounds and sputum Continue Zyvox, will cover VRE - give 7 days till 11/27 Continue Diflucan Wound care RLE wounds- monitor closely- ? BKA Acute respiratory failure with Acute systolic heart failure -ejection fraction 35%- - tachypneic, abdominal breathing- acute Pulmonary edema Coronary artery disease - heart catheterization 01/24 revealed three-vessel coronary disease unamenable to intervention. Seen by Dr. Montgomery. Signed off Hypertension Dyslipidemia Peripheral vascular disease - Chronic atrial fibrillation - in SR tachypneic- give lasix 40 mg IV x 1 change back to IV q 12. Stat ABG. Stat CXR Monitor HR and BP keep MAP>65mmHg. On Coreg 3.125 mg BID/home medication with holding parameters Echo showed EF 35-40%, mild TR. LV dysfunction. RV dilatation. Which is a change from 55% 01/24, Cards has followed and signed off- Dr. Montgomery. Not on statin due to elevated LFT's. On Lipitor 20 mill grams by mouth daily at home On amiodarone 200 mg by mouth daily/home medication Increase )2 to keep sats greater than 90% [place] [facility] [place]- impending respiratory failure Obstructive sleep apnea Chronic type I hypoxic respiratory failure - 2 L nasal cannula History COPD Continue with oxygen keep sat >92%, Continue with bronchodilators scheduled every 6 hours and every 2 hours when necessary dyspnea NIPPV PRN for resp distress. Noted on 2 L nasal cannula chronically home at night Depression Chronic pain syndrome History of TIA Monitor neuro status and limit sedatives. 11/19 Ct brain: No acute findings. Resume home medications Neurontin 300 mg 3 times a day for neuropathy Resume Lexapro 10 mg by mouth daily for depression [place]/morphine for pain management Seen by Dr. Johansen for right lower extremity wound. Very poor anterior tibial blood flow. Occlusive peroneal/posterior tibial disease. BPH Resume Flomax 0.4 mill grams by mouth daily/home medication Currently on condom catheter Monitor renal function, I/O's, electrolytes replacement per protocol. Renal function is improving, monitor BMP, on Lasix 40mg IV BID- change to po GI: Gastroesophageal reflux disease Hiatal hernia History of Kuhn's esophagus History of bowel dysmotility and chronic Reglan On mechanical soft heart healthy diet per speech Monitor LFT;s..trending down, Hepatitis profile is negative. US liver 11/18: No intrahepatic biliary ductal dilatation. On Reglan 10 mg 4 times a day as needed here in the hospital. [facility] Currently on Pepcid. On Prilosec 20 mg [facility] Heme: Chronic warfarin Acute blood loss anemia Admission with warfarin toxicity Monitor CBC, Coags, s/p transfusion 2units PRBC, 6u FFP, Vitamin K 10mg x1 on arrival s/p transfusion 1unit PRBC 11/19 Last INR is 1.5. Off Coumadin due to anemia GI will not do endoscopy of secondary to cardiac issues Restart anticoagulation with heparin drip. Endo: Diabetes mellitus SSI with accuchecks Currently on sliding scale insulin Accu-Cheks before meals/at bedtime. 2 units of sliding scale insulin past 24 hours. On Levemir 15 units at night with sliding scale insulin [facility] GI prophylaxis with Pepcid DVT prophylaxis - coagulopathic with INR 1.5 on 11/22 Problem Qualifiers (1) Acute respiratory failure: Qualified Code: J96.00 - Acute respiratory failure, unspecified whether with hypoxia or hypercapnia Ben Chang MD Nov 26, 2016 11:29
--- NOTE | 2016-11-26 11:38 | HHI.PR ---
Subjective Remarks patient feeling better weak cough no pain complains no hematemesis, melena or hematochezia Objective Vitals Vital Signs Date Time Temp Pulse Resp B/P Pulse Ox O2 Delivery O2 Flow Rate FiO2 11/26/16 09:25 93 Nasal Cannula 2.00 11/26/16 06:00 69 11/26/16 05:00 65 11/26/16 04:00 61 11/26/16 03:00 97.1 63 27 129/60 100 11/26/16 03:00 63 11/26/16 02:00 62 11/26/16 01:00 58 11/26/16 00:00 61 11/25/16 23:00 62 11/25/16 23:00 96.9 62 28 111/53 97 11/25/16 22:00 62 11/25/16 21:00 72 11/25/16 20:00 67 11/25/16 19:47 99 Venturi Mask 6.00 50 11/25/16 19:00 62 11/25/16 19:00 97.8 67 28 127/60 97 11/25/16 19:00 97.8 67 11/25/16 16:00 72 11/25/16 15:00 73 11/25/16 15:00 98.7 74 26 153/85 91 11/25/16 14:00 71 11/25/16 13:34 68 I/O 11/25/16 11/25/16 11/25/16 11/26/16 11/26/16 11/26/16 07:00 15:00 23:00 07:00 15:00 23:00 Intake Total 220 ml 322 ml 461 ml 276 ml Output Total 300 ml 450 ml 350 ml Balance 220 ml 22 ml 11 ml -74 ml Intake Oral 120 ml 120 ml 120 ml IV Total 220 ml 202 ml 341 ml 156 ml Output Urine Total 300 ml 450 ml 350 ml # Voids 2 # Bowel Movements 1 2 2 0 Result Diagram: 11/26/16 0426 11/25/16 1548 Imaging Last Impressions Chest X-Ray 11/25/16 0000 Signed Impressions: Service Date/Time: Friday, November 25, 2016 15:41 - CONCLUSION: 1. Status post extubation and removal of NGT. 2. Stable patchy bilateral interstitial and airspace disease with probable trace bilateral pleural effusions. Differential considerations include pulmonary edema versus diffuse infection versus ARDS. Richard Gonzalez MD Head CT 11/19/16 0000 Signed Impressions: Service Date/Time: Saturday, November 19, 2016 12:42 - CONCLUSION: 1. Ventricular prominence as described above. This is stable in the interval. 2. There is no other significant interval change. Nahid Cazares MD FACR Liver Ultrasound 11/18/16 0000 Signed Impressions: Service Date/Time: Friday, November 18, 2016 08:04 - CONCLUSION: 1. Small bilateral pleural effusions. 2. Prominent somewhat sonodense liver without intrahepatic biliary ductal dilatation. Nahid Cazares MD FACR Objective Remarks awake oriented x 3,, speech soft speech clear but soft anicteric lungs+ rhonchi regular rhythm abdomen- flabby soft, good bowel sounds, nontender left AKA, right LE- with necrotic open wounds bilateral buttocks and cheeks of buttocks + wounds/decubiti condom catheter in place, LE no edema Date of Insertion: Nov 25, 2016 A/P Problem List: (1) PVD (peripheral vascular disease) ICD Code: I73.9 Status: Acute (2) Acute systolic (congestive) heart failure ICD Code: I50.21 Status: Acute (3) GI bleed ICD Code: K92.2 Status: Acute (4) DM (diabetes mellitus) ICD Code: E11.9 Status: Acute (5) Acute respiratory failure ICD Code: J96.00 Status: Acute Assessment and Plan 66 years old male Sepsis, T down - muttiple sources UTI - has VRE and Natalie krusei on UC Infected wounds RLE, ?decubitus- C/S PSAE, Proteus, Enterococcus, Staph aureus - has bilateral infiltrates and hypoxemia, and likely with HCAP, possibly with CHF on top - has UTI (no folye in [place]) - infected R leg wound, patient with underlying PVD PNA, - has Proteus PNA PVD, infected wound R leg,C/S PSAE, Proteus, entoerococcus - previous revascularization and L AKA Continue Zosyn, PSAE, MSSA and other GNR - in wounds and sputum Continue Zyvox, will cover VRE - give 7 days till 11/27 Continue Diflucan Wound care RLE wounds- monitor closely- ? BKA Seen by Dr. Johansen for right lower extremity wound. Very poor anterior tibial blood flow. Occlusive peroneal/posterior tibial disease. On Heparin drip Acute respiratory failure with Acute systolic heart failure -ejection fraction 35%- - tachypneic, abdominal breathing- acute Pulmonary edema Coronary artery disease - heart catheterization 01/24 revealed three-vessel coronary disease unamenable to intervention. Seen by Dr. Montgomery. Signed off Hypertension Dyslipidemia Peripheral vascular disease - Chronic atrial fibrillation - in SR continue on Lasix 40 mg IV q 12 - 11/25 . CXR with pulmonary edema change to po next few days Monitor HR and BP keep MAP>65mmHg. On Coreg 3.125 mg BID/home medication with holding parameters Echo showed EF 35-40%, mild TR. LV dysfunction. RV dilatation. Which is a change from 55% 01/24, Cards has followed and signed off- Dr. Montgomery. Not on statin due to elevated LFT's. On Lipitor 20 mill grams by mouth daily at home On amiodarone 200 mg by mouth daily/home medication 02 NC to keep sats greater than 90% Chronic warfarin- admitted with elevated INR Acute blood loss anemia Admission with warfarin toxicity Coags, s/p transfusion 6u FFP, RBC, Vitamin K 10mg x1 on arrival last s/p transfusion 1unit PRBC 11/19 Last INR is 1.5. Off Coumadin due to anemia GI will not do endoscopy of secondary to cardiac issues Anticoagulation restarted with heparin drip. 11/23. check INR now and start po coumadin today 11/26 with monitoring 5 mg daily- with pharmacy consult check CBC in am (drop this am but been on same range for past 3 days) Obstructive sleep apnea Chronic type I hypoxic respiratory failure - 2 L nasal cannula History COPD Continue with oxygen keep sat >92%, Continue with bronchodilators scheduled every 6 hours and every 2 hours when necessary dyspnea NIPPV PRN for resp distress. Noted on 2 L nasal cannula chronically home at night Depression Chronic pain syndrome History of TIA Monitor neuro status and limit sedatives. 11/19 Ct brain: No acute findings. Resume home medications Neurontin 300 mg 3 times a day for neuropathy Resume Lexapro 10 mg by mouth daily for depression [place]/morphine for pain management BPH on Flomax 0.4 mill grams by mouth daily/home medication cabello placed 11/25- for IV diuresis (was on condom catheter prior to this) DC cabello next few days GI: Gastroesophageal reflux disease Hiatal hernia History of Kuhn's esophagus History of bowel dysmotility and chronic Reglan On mechanical soft heart healthy diet per speech Monitor LFT;s..trending down, Hepatitis profile is negative. US liver 11/18: No intrahepatic biliary ductal dilatation. On Reglan 10 mg 4 times a day as needed here in the hospital. Scheduled Reglan at senior care Currently on Pepcid. On Prilosec 20 mg by mouth daily at senior care Endo: Diabetes mellitus SSI with accuchecks Currently on sliding scale insulin Accu-Cheks before meals/at bedtime. 2 units of sliding scale insulin past 24 hours. On Levemir 15 units at night with sliding scale insulin at senior care GI prophylaxis with Pepcid DVT prophylaxis - on heparin- coumadin overlap DC planning- patient from a nearby SNF Problem Qualifiers (1) Acute respiratory failure: Qualified Code: J96.00 - Acute respiratory failure, unspecified whether with hypoxia or hypercapnia Ben Chang MD Nov 26, 2016 11:38 Ben Chang MD Nov 26, 2016 11:38
[2016-11-26] MEDS ORDERED: DO NOT ADM ANY ANTICOAGULANT DRUGS OTHER PRN (12:00)
[2016-11-26 13:05] LABS: INTERNATIONAL NORMALIZED RATIO 1.3 RATIO
[2016-11-26 13:10] LABS: APTT (PATIENT) 49.5 SEC (24.3-30.1)
[2016-11-26] MEDS: HEPARIN-D5W INJ 250 ML IV SCH (13:11)
[2016-11-26 14:47] LABS: BACTERIA, URINE RARE /hpf; BLOOD, URINE LARGE (NEG); GLUCOSE,URINE NEG (NEG); HYALINE CAST, URINE 8 /lpf (RARE); KETONE, URINE NEG (NEG); MUCUS URINE FEW /lpf (OCC); NITRITE,URINE NEG (NEG); URINE COLOR YELLOW (YELLW/STRAW)
[2016-11-26 14:49] LABS: COMMENT (UR) CATH-CULTURE IND; CULTURE IF INDICATED CATH CULTURE IND
[2016-11-26] MEDS: WARFARIN SOD 5 MG TAB PO SCH (16:54)
[2016-11-26 19:03] LABS: APTT (PATIENT) 31.6 SEC (24.3-30.1)
[2016-11-27] VITALS (27 sets, daily range): BP systolic 105–140; BP diastolic 51–80; PULSE 72–90; RESP 12–134; TEMP 97.1–98.2; O2SAT 92–100
[2016-11-27] MEDS: LINEZOLID 600 MG TAB PO SCH ×3 (00:25→21:47)
[2016-11-27] MEDS: FAMOTIDINE 20 MG TAB PO SCH ×3 (00:25→21:00)
[2016-11-27] MEDS: ASCORBIC ACID 500 MG TAB PO SCH ×2 (00:26→08:46)
[2016-11-27] MEDS: CARVEDILOL 3.125 MG TAB PO SCH ×3 (00:26→21:48)
[2016-11-27] MEDS: PIPERACIL-TAZO 4.5 GM PREMIX 100 ML IV SCH ×4 (00:38→21:47)
[2016-11-27] MEDS: CHLORHEXIDINE GLUCONATE 2 % 1 PACK (2 CLOTHS) TOP SCH (00:40)
[2016-11-27 02:18] LABS: APTT (PATIENT) 43.4 SEC (24.3-30.1)
[2016-11-27] MEDS: RESP: ALBUTEROL 2.5 MG/IPRATROPIUM 0.5 MG NEB (SCH) NEB ×4 (04:00→19:31)
[2016-11-27 05:12] LABS: APTT (PATIENT) 56.5 SEC (24.3-30.1)
[2016-11-27] MEDS: HEPARIN-D5W INJ 250 ML IV SCH ×2 (05:16→21:43)
[2016-11-27] MEDS: INSULIN ASPART SUPPLEMENTAL SCALE SQ SCH ×4 (05:33→21:00)
[2016-11-27] MEDS: POTASSIUM CHLORIDE 20 MEQ CONTROLLED RELEASE TAB PO SCH (08:45)
[2016-11-27] MEDS: FLUCONAZOLE 100 MG TAB PO SCH (08:45)
[2016-11-27] MEDS: DOCUSATE SODIUM 50 MG/SENNA 8.6 MG TAB PO SCH ×2 (08:46→21:47)
[2016-11-27] MEDS: FUROSEMIDE 20 MG/2 ML VIAL IV PUSH SCH ×2 (08:46→17:58)
[2016-11-27] MEDS: ACETAMINOPHEN/HYDROcodone 325 MG/5 MG TAB PO PRN (08:49)
[2016-11-27] MEDS: ARTIFICIAL TEARS OPTH SOLN 15 ML BTL EACH EYE SCH ×3 (09:00→18:00)
[2016-11-27] MEDS: GABAPENTIN 300 MG CAP PO SCH ×3 (09:00→17:58)
[2016-11-27] MEDS: TAMSULOSIN HCL 0.4 MG CAP PO SCH (09:00)
--- NOTE | 2016-11-27 10:11 | HHI.IDPN ---
Subjective Subjective Remarks Notes reviewed D/W RN Transferred to [facility] this weekend, back to [facility] for desaturation He is now stable from respiratory standpoint On nasal O2 Not SOB NO fever BP ok Wound C/S - polymicrobial Repeat UC with lower colony count yeast Antibiotics Diflucan Zosyn Past Medical History Chronic atrial fibrillation on Coumadin History of congestive heart failure ejection fraction on 03/2016 50-55% COPD Hypertension History of UTI Peripheral vascular disease Diabetic mellitus Chronic pain Bilateral diabetic foot ulcers History of osteomyelitis left lower extremity Past Surgical History Cholecystectomy Tonsillectomy Previous revascularization, has had stent placement S/P L AKA Jun 2016 Allergies: Coded Allergies: *MDRO Multi-Drug Resistant Organism (Verified Adverse Reaction, Unknown, MRSA, 11/21/16) MRSA (toe wound) - 01/27/16; (foot) - 05/24/16 MRSA PCR Screen POSITIVE - 05/26/16 VRE (urine)-11/17/16 Objective . Vital Signs Date Time Temp Pulse Resp B/P Pulse Ox O2 Delivery O2 Flow Rate FiO2 11/27/16 09:04 93 Nasal Cannula 2.00 11/27/16 07:52 98.1 77 26 136/80 97 11/27/16 04:00 97.1 74 28 140/64 97 11/27/16 00:00 97.4 78 32 132/60 95 11/26/16 21:27 96 Nasal Cannula 3.00 11/26/16 20:00 98.8 75 30 131/60 94 11/26/16 17:00 77 27 152/67 95 11/26/16 16:00 73 24 150/66 95 11/26/16 15:00 73 28 142/66 96 11/26/16 14:01 75 26 140/64 95 11/26/16 13:00 75 24 160/67 94 11/26/16 12:00 97.4 74 33 144/64 95 11/26/16 11:00 70 29 146/65 96 11/26/16 11/26/16 11/27/16 15:00 23:00 07:00 Intake Total 459 ml 246 ml 309 ml Output Total 1000 ml 800 ml 450 ml Balance -541 ml -554 ml -141 ml Intake Oral 120 ml 120 ml 120 ml IV Total 339 ml 126 ml 189 ml Output Urine Total 1000 ml 800 ml 450 ml # Bowel Movements 0 2 1 . Laboratory Tests Test 11/25/16 11/26/16 15:48 04:26 White Blood Count 8.7 TH/MM3 7.4 TH/MM3 Red Blood Count 3.43 MIL/MM3 3.05 MIL/MM3 Hemoglobin 10.1 GM/DL 8.8 GM/DL Hematocrit 31.1 % 27.7 % Mean Corpuscular Volume 90.6 FL 90.7 FL Mean Corpuscular Hemoglobin 29.4 PG 28.9 PG Mean Corpuscular Hemoglobin 32.4 % 31.8 % Concent Red Cell Distribution Width 15.9 % 16.0 % Platelet Count 190 TH/MM3 174 TH/MM3 Mean Platelet Volume 8.7 FL 8.5 FL Neutrophils (%) (Auto) 85.6 % Lymphocytes (%) (Auto) 7.0 % Monocytes (%) (Auto) 4.7 % Eosinophils (%) (Auto) 1.9 % Basophils (%) (Auto) 0.8 % Neutrophils # (Auto) 7.5 TH/MM3 Lymphocytes # (Auto) 0.6 TH/MM3 Monocytes # (Auto) 0.4 TH/MM3 Eosinophils # (Auto) 0.2 TH/MM3 Basophils # (Auto) 0.1 TH/MM3 CBC Comment DIFF FINAL Differential Comment Laboratory Tests Test 11/25/16 15:48 Sodium Level 141 MEQ/L Potassium Level 4.1 MEQ/L Chloride Level 104 MEQ/L Carbon Dioxide Level 30.7 MEQ/L Anion Gap 6 MEQ/L Blood Urea Nitrogen 27 MG/DL Creatinine 1.15 MG/DL Estimat Glomerular Filtration 63 ML/MIN Rate Random Glucose 148 MG/DL Calcium Level 8.7 MG/DL Microbiology Date/Time Procedure Status Source Growth 11/25/16 17:45 Stool Occult Blood (FLAVIA) - Final Complete Stool Stool HEMOCCULT NEGATIVE 11/26/16 12:00 Urine Culture Received Urine Catheterized Urine Pending Imaging Last Impressions Chest X-Ray 11/21/16 0000 Signed Impressions: Service Date/Time: Monday, November 21, 2016 07:28 - CONCLUSION: No significant change. Nickolas Jordan MD Head CT 11/19/16 0000 Signed Impressions: Service Date/Time: Saturday, November 19, 2016 12:42 - CONCLUSION: 1. Ventricular prominence as described above. This is stable in the interval. 2. There is no other significant interval change. Nahid Cazares MD FACR Liver Ultrasound 11/18/16 0000 Signed Impressions: Service Date/Time: Friday, November 18, 2016 08:04 - CONCLUSION: 1. Small bilateral pleural effusions. 2. Prominent somewhat sonodense liver without intrahepatic biliary ductal dilatation. Nahid Cazares MD FACR Physical Exam GENERAL: awake and alert, on nasal O2, NAD SKIN: Warm and dry. Has scattered purpuric lesions in his UE. HEAD: Atraumatic. Normocephalic. No temporal wasting, or tenderness. EYES: Anchor conjunctiva. No petechia or hemorrhage. Extraocular movements full and intact. No scleral icterus. No injection or drainage. EARS, NOSE AND THROAT: Nose without bleeding or purulent nasal discharge. Moist mucosa, with some mild white coating on his tongue. NECK: Trachea midline. Supple and not tender, no meningeal signs CARDIOVASCULAR: Regular rate and rhythm. No murmurs, rubs or gallops heard RESPIRATORY: Coarse BS janice, equal BS. Decreased BS at the bases. No wheezing or rhonchi ABDOMEN: Soft, non-tender, nondistended. Bowel sounds present and normoactive. No guarding. No rebound. No organomegaly. EXTREMITIES: S/P L AKA with well healed stump. R foot - there is a dry eschar about quarter size over his 5th MT, and there is an ulcer on his R heel that is about 1 in x 0.5 inch with pink base, and no surrounding cellulitis and some serous drainage. On his R lateral leg is a large infected open wound with intact dressing, still with significant necrotic tissue, (+) odor. No R calf tenderness. R foot slightly cool, but the rest of his RLE is warm. NEUROLOGICAL: Awake and alert. 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 No facial asymmetry, full EOM PSYCHIATRIC: Awake and cooperative LINE: No evidence of infection : Cabello in place, with sediment in his urine Assessment & Plan Remarks IMPRESSION Sepsis, source? - has bilateral infiltrates and hypoxemia, and likely with HCAP, possibly with CHF on top - has UTI (no cabello in [place]) - infected R leg wound, patient with underlying PVD Respiratory failure, PNA, CHF - has Proteus PNA Fevers PVD, infected wound R leg, ?decubitus - previous revascularization and L AKA UTI - has VRE and Natalie krusei on UC Infected wounds RLE, ?decubitus - C/S PSAE, Proteus, Enterococcus, Staph aureus Has MDR organisms on his C/S RECOMMENDATION Continue Zosyn, PSAE, MSSA and other GNR - in wounds and sputum To finish Zyvox today Continue Diflucan Will reconsult plastics for the R leg wound Will ask vascular to put input if ok to have surgical debridement Wound care RLE wounds Monitor progress D/W Gogo Funes MD Nov 27, 2016 10:11
[2016-11-27] MEDS: MORPHINE SULFATE 4 MG/ML INJ IV PRN (10:37)
--- NOTE | 2016-11-27 10:46 | HHI.PR ---
Subjective Remarks Slightly tachypneic no fevers denies cp/sob on 2 liters nasal canula Objective Vitals Vital Signs Date Time Temp Pulse Resp B/P Pulse Ox O2 Delivery O2 Flow Rate FiO2 11/27/16 09:04 93 Nasal Cannula 2.00 11/27/16 07:52 98.1 77 26 136/80 97 11/27/16 04:00 97.1 74 28 140/64 97 11/27/16 00:00 97.4 78 32 132/60 95 11/26/16 21:27 96 Nasal Cannula 3.00 11/26/16 20:00 98.8 75 30 131/60 94 11/26/16 17:00 77 27 152/67 95 11/26/16 16:00 73 24 150/66 95 11/26/16 15:00 73 28 142/66 96 11/26/16 14:01 75 26 140/64 95 11/26/16 13:00 75 24 160/67 94 11/26/16 12:00 97.4 74 33 144/64 95 11/26/16 11:00 70 29 146/65 96 I/O 11/26/16 11/26/16 11/26/16 11/27/16 11/27/16 11/27/16 07:00 15:00 23:00 07:00 15:00 23:00 Intake Total 276 ml 459 ml 246 ml 309 ml Output Total 350 ml 1000 ml 800 ml 450 ml Balance -74 ml -541 ml -554 ml -141 ml Intake Oral 120 ml 120 ml 120 ml 120 ml IV Total 156 ml 339 ml 126 ml 189 ml Output Urine Total 350 ml 1000 ml 800 ml 450 ml # Bowel Movements 0 0 2 1 Result Diagram: 11/26/16 0426 11/25/16 1548 Imaging Last Impressions Chest X-Ray 11/25/16 0000 Signed Impressions: Service Date/Time: Friday, November 25, 2016 15:41 - CONCLUSION: 1. Status post extubation and removal of NGT. 2. Stable patchy bilateral interstitial and airspace disease with probable trace bilateral pleural effusions. Differential considerations include pulmonary edema versus diffuse infection versus ARDS. Richard Gonzalez MD Head CT 11/19/16 0000 Signed Impressions: Service Date/Time: Saturday, November 19, 2016 12:42 - CONCLUSION: 1. Ventricular prominence as described above. This is stable in the interval. 2. There is no other significant interval change. Nahid Cazares MD FACR Liver Ultrasound 11/18/16 0000 Signed Impressions: Service Date/Time: Friday, November 18, 2016 08:04 - CONCLUSION: 1. Small bilateral pleural effusions. 2. Prominent somewhat sonodense liver without intrahepatic biliary ductal dilatation. Nahid Cazares MD FACR Objective Remarks awake oriented x 3,, speech soft speech clear but soft anicteric lungs + end expiratory wheezing Bilaterally, decreased breath sounds BL regular rhythm abdomen- flabby soft, good bowel sounds, nontender left AKA, right LE- with necrotic open wounds bilateral buttocks and cheeks of buttocks + wounds/decubiti condom catheter in place, LE no edema Medications and IVs Last Impressions Chest X-Ray 11/25/16 0000 Signed Impressions: Service Date/Time: Friday, November 25, 2016 15:41 - CONCLUSION: 1. Status post extubation and removal of NGT. 2. Stable patchy bilateral interstitial and airspace disease with probable trace bilateral pleural effusions. Differential considerations include pulmonary edema versus diffuse infection versus ARDS. Richard Gonzalez MD Head CT 11/19/16 0000 Signed Impressions: Service Date/Time: Saturday, November 19, 2016 12:42 - CONCLUSION: 1. Ventricular prominence as described above. This is stable in the interval. 2. There is no other significant interval change. Nahid Cazares MD FACR Liver Ultrasound 11/18/16 0000 Signed Impressions: Service Date/Time: Friday, November 18, 2016 08:04 - CONCLUSION: 1. Small bilateral pleural effusions. 2. Prominent somewhat sonodense liver without intrahepatic biliary ductal dilatation. Nahid Cazares MD FACR Urinary Catheter: Yes Assessment to: Continue Chase insert reason: ICU Pt Getting Diuretics Date of Insertion: Nov 25, 2016 A/P Problem List: (1) Severe sepsis ICD Code: A41.9 Status: Acute (2) PVD (peripheral vascular disease) ICD Code: I73.9 Status: Acute (3) Acute systolic (congestive) heart failure ICD Code: I50.21 Status: Acute (4) GI bleed ICD Code: K92.2 Status: Acute (5) DM (diabetes mellitus) ICD Code: E11.9 Status: Acute (6) Acute respiratory failure ICD Code: J96.00 Status: Acute (7) PAD (peripheral artery disease) ICD Code: I73.9 Status: Chronic (8) Afib ICD Code: I48.91 Status: Chronic (9) Acute metabolic encephalopathy ICD Code: G93.41 Status: Resolved (10) Anemia ICD Code: D64.9 Status: Acute (11) UTI (urinary tract infection) ICD Code: N39.0 Status: Acute Assessment and Plan Sepsis, T down - muttiple sources UTI - has VRE and Natalie krusei on UC Infected wounds RLE, ?decubitus- C/S PSAE, Proteus, Enterococcus, Staph aureus - has bilateral infiltrates and hypoxemia, and likely with HCAP, possibly with CHF on top - has UTI (no folye in NH) - infected R leg wound, patient with underlying PVD PNA, - has Proteus PNA COPD exacerbation - BL expiratory wheezing, O2 sat in low 90's, patient tachypneic - will start IV solumedrol and bronchodilators. Continue O2 to keep o2 sat >92% PVD, infected wound R leg,C/S PSAE, Proteus, entoerococcus - previous revascularization and L AKA Continue Zosyn, PSAE, MSSA and other GNR - in wounds and sputum Continue Zyvox, will cover VRE - give 7 days till 11/27 Continue Diflucan Wound care RLE wounds- monitor closely- ? BKA Seen by Dr. Johansen for right lower extremity wound. Very poor anterior tibial blood flow. Occlusive peroneal/posterior tibial disease. On Heparin drip Discharge Planning Continue to monitor in the ICU. Problem Qualifiers (1) Acute respiratory failure: Qualified Code: J96.00 - Acute respiratory failure, unspecified whether with hypoxia or hypercapnia (2) Anemia: Qualified Code: D64.9 - Anemia, unspecified type (3) UTI (urinary tract infection): Qualified Code: N39.0 - Urinary tract infection without hematuria, site unspecified Heriberto Bryant MD Nov 27, 2016 10:46
[2016-11-27 12:58] LABS: APTT (PATIENT) 53.2 SEC (24.3-30.1)
[2016-11-27] MEDS: methylPREDNISolone SOD SUCC 40 MG/1 ML VIAL IV PUSH SCH ×2 (13:31→17:58)
[2016-11-27] MEDS: COLLAGENASE OINT 30 GM TUBE TOPICAL SCH (14:00)
[2016-11-27] MEDS: WARFARIN SOD 5 MG TAB PO SCH (16:12)
--- NOTE | 2016-11-27 18:17 | PD.CAR.PN ---
CVT Progress Note Subjective/Hospital Course: Referral received Full consult [facility] Lugo 11/27/16 Patient is now off the ventilator laying in bed. He appears to be quite ill. The right leg has decubitus ulcer on the lateral aspect of the ankle and another one higher up encompassing about 3 injury by 7 inch area of necrotic tissue and devitalized skin and fat reaching to the muscle fascia. As per my consultation, this patient does not have surgically or endovascularly reconstructable vascular disease with trifurcation occlusion, posterior tibial artery occlusion, peroneal artery occlusion and poor flow to the very diseased anterior tibial artery. In addition patient is bedridden. I do not plan to do any surgical procedure on this gentleman as far as reconstruction is concerned. The best we can do at this point is debriding the area and eventually sooner later patient will end up with above-knee amputation. Objective: Vital Signs Date Time Temp Pulse Resp B/P Pulse Ox O2 Delivery O2 Flow Rate FiO2 11/27/16 16:00 98.2 72 28 135/65 97 11/27/16 12:01 74 21 119/57 96 11/27/16 12:00 98.0 72 28 105/51 97 11/27/16 12:00 75 29 96 11/27/16 11:45 81 33 95 11/27/16 11:30 80 32 94 11/27/16 11:15 81 32 94 11/27/16 11:00 78 12 107/53 94 11/27/16 10:45 78 23 94 11/27/16 10:30 75 119 93 11/27/16 10:15 77 105 93 11/27/16 10:00 75 134 117/56 93 11/27/16 09:45 76 87 94 11/27/16 09:30 80 31 92 11/27/16 09:15 79 20 100 11/27/16 09:04 93 Nasal Cannula 2.00 11/27/16 09:00 81 33 134/66 96 11/27/16 08:45 81 22 96 11/27/16 08:30 79 12 96 11/27/16 08:15 79 31 96 11/27/16 08:01 78 30 138/63 96 11/27/16 08:00 98.1 77 26 136/80 97 11/27/16 08:00 78 29 95 11/27/16 07:52 98.1 77 26 136/80 97 11/27/16 04:00 97.1 74 28 140/64 97 11/27/16 00:00 97.4 78 32 132/60 95 11/26/16 21:27 96 Nasal Cannula 3.00 11/26/16 20:00 98.8 75 30 131/60 94 Labs: Laboratory Tests Test 11/27/16 12:27 Activated Partial 53.2 SEC Thromboplast Time (24.3-30.1) Result Diagram: 11/26/16 0426 11/25/16 1548 Dawson Johansen MD Nov 27, 2016 18:17
[2016-11-27] MEDS: SODIUM CHLORIDE 0.9% FLUSH 10 ML FLUSH SCH (21:00)
[2016-11-27 21:30] LABS: APTT (PATIENT) 57.1 SEC (24.3-30.1)
[2016-11-28] VITALS (14 sets, daily range): BP systolic 112–136; BP diastolic 56–69; PULSE 70–95; RESP 20–28; TEMP 98.1–98.7; O2SAT 91–97
[2016-11-28] MEDS: methylPREDNISolone SOD SUCC 40 MG/1 ML VIAL IV PUSH SCH ×5 (00:04→20:02)
[2016-11-28] MEDS: ACETAMINOPHEN/HYDROcodone 325 MG/5 MG TAB PO PRN ×2 (00:04→08:46)
[2016-11-28] MEDS: PIPERACIL-TAZO 4.5 GM PREMIX 100 ML IV SCH ×4 (02:00→19:50)
[2016-11-28] MEDS: CHLORHEXIDINE GLUCONATE 2 % 1 PACK (2 CLOTHS) TOP SCH (04:00)
[2016-11-28 04:03] LABS: AUTOMATED NEUTROPHIL # 7.1 TH/MM3 (1.8-7.7); BASOPHIL % 0.1 % (0.0-2.0); EOSINOPHIL % 0.1 % (0.0-4.0); HEMATOCRIT 28.4 % (39.0-51.0); HEMO FLAGS DIFF FINAL; LYMPH % 5.7 % (9.0-44.0); LYMPHOCYTE # 0.5 TH/MM3 (1.0-4.8); MEAN CELL VOLUME 89.6 FL (80.0-100.0); MEAN CORPUSCULAR HGB CONC 32.3 % (32.0-36.0); MONO % 4.3 % (0.0-8.0); NEUT % 89.8 % (16.0-70.0); PLATELET COUNT 187 TH/MM3 (150-450); RED BLOOD COUNT 3.17 MIL/MM3 (4.50-5.90); RED CELL DISTRIBUTION WIDTH 16.1 % (11.6-17.2); WHITE BLOOD COUNT 7.9 TH/MM3 (4.0-11.0)
[2016-11-28 04:49] LABS: ALT (GPT) 67 U/L (12-78); ANION GAP 11 MEQ/L (5-15); AST (GOT) 40 U/L (15-37); BICARBONATE 28.7 MEQ/L (21.0-32.0); BLOOD UREA NITROGEN 26 MG/DL (7-18); CHLORIDE 103 MEQ/L (98-107); GLOMERULAR FILTRATION RATE 59 ML/MIN (>89); MAGNESIUM 2.5 MG/DL (1.5-2.5); POTASSIUM 3.5 MEQ/L (3.5-5.1); SODIUM (NA) 143 MEQ/L (136-145)
[2016-11-28 04:51] LABS: ALKALINE PHOSPHATASE 86 U/L (45-117); TOTAL BILIRUBIN ADULT 0.8 MG/DL (0.2-1.0)
[2016-11-28] MEDS: INSULIN ASPART SUPPLEMENTAL SCALE SQ SCH ×4 (06:50→19:59)
[2016-11-28] MEDS: RESP: ALBUTEROL 2.5 MG/IPRATROPIUM 0.5 MG NEB (SCH) NEB ×3 (07:42→19:25)
[2016-11-28] MEDS: FUROSEMIDE 20 MG/2 ML VIAL IV PUSH SCH ×2 (08:46→16:18)
[2016-11-28] MEDS: ASCORBIC ACID 500 MG TAB PO SCH (08:46)
[2016-11-28] MEDS: TAMSULOSIN HCL 0.4 MG CAP PO SCH (08:46)
[2016-11-28] MEDS: POTASSIUM CHLORIDE 20 MEQ CONTROLLED RELEASE TAB PO SCH (08:46)
[2016-11-28] MEDS: DOCUSATE SODIUM 50 MG/SENNA 8.6 MG TAB PO SCH ×2 (08:46→19:50)
[2016-11-28] MEDS: CARVEDILOL 3.125 MG TAB PO SCH ×2 (08:46→19:50)
[2016-11-28] MEDS: FAMOTIDINE 20 MG TAB PO SCH ×2 (08:47→19:58)
[2016-11-28] MEDS: GABAPENTIN 300 MG CAP PO SCH ×3 (08:47→16:18)
[2016-11-28] MEDS: COLLAGENASE OINT 30 GM TUBE TOPICAL SCH (08:48)
[2016-11-28] MEDS: ARTIFICIAL TEARS OPTH SOLN 15 ML BTL EACH EYE SCH ×3 (08:48→16:18)
[2016-11-28] MEDS: FLUCONAZOLE 100 MG TAB PO SCH (08:48)
--- NOTE | 2016-11-28 10:42 | PD.CAR.PN ---
CVT Progress Note Subjective/Hospital Course: Referral received Full consult [facility] Lugo 11/27/16 Patient is now off the ventilator laying in bed. He appears to be quite ill. The right leg has decubitus ulcer on the lateral aspect of the ankle and another one higher up encompassing about 3 injury by 7 inch area of necrotic tissue and devitalized skin and fat reaching to the muscle fascia. As per my consultation, this patient does not have surgically or endovascularly reconstructable vascular disease with trifurcation occlusion, posterior tibial artery occlusion, peroneal artery occlusion and poor flow to the very diseased anterior tibial artery. In addition patient is bedridden. I do not plan to do any surgical procedure on this gentleman as far as reconstruction is concerned. The best we can do at this point is debriding the area and eventually sooner later patient will end up with above-knee amputation. 11/28/16 Patient does not unreconstructable disease in his leg and the only options are debridement versus above-knee amputation Patient is a poor candidate for any surgical procedure Objective: Vital Signs Date Time Temp Pulse Resp B/P Pulse Ox O2 Delivery O2 Flow Rate FiO2 11/28/16 10:00 92 11/28/16 08:00 98.4 95 22 115/59 97 11/28/16 08:00 92 11/28/16 07:41 91 Nasal Cannula 2.00 11/28/16 06:00 70 11/28/16 04:00 98.1 72 20 124/60 96 11/28/16 04:00 72 11/28/16 02:00 78 11/28/16 00:00 78 11/28/16 00:00 92 11/28/16 00:00 98.4 92 20 133/69 91 11/27/16 22:00 90 11/27/16 20:00 98.0 78 20 136/65 97 11/27/16 20:00 78 11/27/16 19:32 96 Nasal Cannula 2.00 11/27/16 16:00 98.2 72 28 135/65 97 11/27/16 12:01 74 21 119/57 96 11/27/16 12:00 98.0 72 28 105/51 97 11/27/16 12:00 75 29 96 11/27/16 11:45 81 33 95 11/27/16 11:30 80 32 94 11/27/16 11:15 81 32 94 11/27/16 11:00 78 12 107/53 94 11/27/16 10:45 78 23 94 Labs: Laboratory Tests Test 11/28/16 03:21 White Blood Count 7.9 TH/MM3 (4.0-11.0) Red Blood Count 3.17 MIL/MM3 (4.50-5.90) Hemoglobin 9.2 GM/DL (13.0-17.0) Hematocrit 28.4 % (39.0-51.0) Mean Corpuscular Volume 89.6 FL (80.0-100.0) Mean Corpuscular Hemoglobin 29.0 PG (27.0-34.0) Mean Corpuscular Hemoglobin 32.3 % Concent (32.0-36.0) Red Cell Distribution Width 16.1 % (11.6-17.2) Platelet Count 187 TH/MM3 (150-450) Mean Platelet Volume 8.1 FL (7.0-11.0) Neutrophils (%) (Auto) 89.8 % (16.0-70.0) Lymphocytes (%) (Auto) 5.7 % (9.0-44.0) Monocytes (%) (Auto) 4.3 % (0.0-8.0) Eosinophils (%) (Auto) 0.1 % (0.0-4.0) Basophils (%) (Auto) 0.1 % (0.0-2.0) Neutrophils # (Auto) 7.1 TH/MM3 (1.8-7.7) Lymphocytes # (Auto) 0.5 TH/MM3 (1.0-4.8) Monocytes # (Auto) 0.3 TH/MM3 (0-0.9) Eosinophils # (Auto) 0.0 TH/MM3 (0-0.4) Basophils # (Auto) 0.0 TH/MM3 (0-0.2) CBC Comment DIFF FINAL Differential Comment Activated Partial 63.0 SEC Thromboplast Time (24.3-30.1) Sodium Level 143 MEQ/L (136-145) Potassium Level 3.5 MEQ/L (3.5-5.1) Chloride Level 103 MEQ/L (98-107) Carbon Dioxide Level 28.7 MEQ/L (21.0-32.0) Anion Gap 11 MEQ/L (5-15) Blood Urea Nitrogen 26 MG/DL (7-18) Creatinine 1.22 MG/DL (0.60-1.30) Estimat Glomerular Filtration 59 ML/MIN (>89) Rate Random Glucose 181 MG/DL (74-106) Calcium Level 8.5 MG/DL (8.5-10.1) Phosphorus Level 3.6 MG/DL (2.5-4.9) Magnesium Level 2.5 MG/DL (1.5-2.5) Total Bilirubin 0.8 MG/DL (0.2-1.0) Aspartate Amino Transf 40 U/L (15-37) (AST/SGOT) Alanine Aminotransferase 67 U/L (12-78) (ALT/SGPT) Alkaline Phosphatase 86 U/L (45-117) Total Protein 7.7 GM/DL (6.4-8.2) Albumin 2.2 GM/DL (3.4-5.0) Result Diagram: 11/28/16 0321 11/28/16 0321 Dawson Johansen MD Nov 28, 2016 10:42
[2016-11-28] MEDS: HEPARIN-D5W INJ 250 ML IV SCH (16:11)
[2016-11-28] MEDS: WARFARIN SOD 5 MG TAB PO SCH (16:17)
[2016-11-28] MEDS: MORPHINE SULFATE 4 MG/ML INJ IV PRN (16:36)
--- NOTE | 2016-11-28 18:15 | HHI.PR ---
Subjective Remarks Patient states breathing is better denies cp denies fevers/chills brother at bedside Sating 97% on 2 liters nasal canula Objective Vitals Vital Signs Date Time Temp Pulse Resp B/P Pulse Ox O2 Delivery O2 Flow Rate FiO2 11/28/16 16:00 98.1 81 20 135/67 97 11/28/16 16:00 76 11/28/16 14:00 98.1 75 20 112/56 97 11/28/16 14:00 75 11/28/16 12:00 75 11/28/16 12:00 98.1 75 20 112/56 97 11/28/16 10:00 92 11/28/16 08:00 98.4 95 22 115/59 97 11/28/16 08:00 92 11/28/16 07:41 91 Nasal Cannula 2.00 11/28/16 06:00 70 11/28/16 04:00 98.1 72 20 124/60 96 11/28/16 04:00 72 11/28/16 02:00 78 11/28/16 00:00 78 11/28/16 00:00 92 11/28/16 00:00 98.4 92 20 133/69 91 11/27/16 22:00 90 11/27/16 20:00 98.0 78 20 136/65 97 11/27/16 20:00 78 11/27/16 19:32 96 Nasal Cannula 2.00 I/O 11/27/16 11/27/16 11/27/16 11/28/16 11/28/16 11/28/16 07:00 15:00 23:00 07:00 15:00 23:00 Intake Total 309 ml 510 ml 195 ml 151 ml 550 ml Output Total 450 ml 1200 ml 400 ml 350 ml 425 ml Balance -141 ml -690 ml -205 ml -199 ml 125 ml Intake Oral 120 ml 300 ml 280 ml IV Total 189 ml 210 ml 195 ml 151 ml 270 ml Output Urine Total 450 ml 1200 ml 400 ml 350 ml 425 ml # Bowel Movements 1 0 0 Result Diagram: 11/28/16 0321 11/28/16 0321 Imaging Last Impressions Chest X-Ray 11/25/16 0000 Signed Impressions: Service Date/Time: Friday, November 25, 2016 15:41 - CONCLUSION: 1. Status post extubation and removal of NGT. 2. Stable patchy bilateral interstitial and airspace disease with probable trace bilateral pleural effusions. Differential considerations include pulmonary edema versus diffuse infection versus ARDS. Richard Gonzalez MD Head CT 11/19/16 0000 Signed Impressions: Service Date/Time: Saturday, November 19, 2016 12:42 - CONCLUSION: 1. Ventricular prominence as described above. This is stable in the interval. 2. There is no other significant interval change. Nahid Cazares MD FACR Liver Ultrasound 11/18/16 0000 Signed Impressions: Service Date/Time: Friday, November 18, 2016 08:04 - CONCLUSION: 1. Small bilateral pleural effusions. 2. Prominent somewhat sonodense liver without intrahepatic biliary ductal dilatation. Nahid Cazares MD FACR Objective Remarks awake oriented x 3,, speech soft speech clear but soft anicteric lungs with decreased breath sounds bilaterally but clear. abdomen- flabby soft, good bowel sounds, nontender left AKA, right LE- with necrotic open wounds bilateral buttocks and cheeks of buttocks + wounds/decubiti condom catheter in place, LE no edema Medications and IVs Current Medications Medications (Trade) Dose Ordered Sig/Thaddeus Route Start Time Stop Time Status Last Admin (NS Flush) 2 ml UNSCH PRN .XX 11/18/16 00:30 11/23/16 09:21 (NS Flush) 2 ml BID .XX 11/18/16 09:00 11/26/16 21:00 (Tylenol) 650 mg Q6H PRN PO 11/18/16 00:30 11/20/16 16:38 (Morphine Inj) 2 mg Q2H PRN IV 11/18/16 00:30 11/28/16 16:36 (Versed Inj) 2 mg Q1H PRN IV 11/18/16 00:30 (Tears Naturale Opth Soln) 1 drop TID EACH EYE 11/18/16 09:00 11/28/16 16:18 (Zofran Inj) 4 mg Q6H PRN IV 11/18/16 00:30 (Reglan Inj) 10 mg Q6H PRN IV 11/18/16 00:30 (Compazine Supp) 25 mg Q12H PRN RECTAL 11/18/16 00:30 Miscellaneous Information 1 Q361D XX 11/18/16 00:30 11/18/16 00:30 (Chlorhexidine 2% Cloth) Taper DAILY@04 TOP 11/18/16 04:00 11/14/17 03:59 11/25/16 04:00 (Chlorhexidine 2% Cloth) 3 pack UNSCH PRN TOP 11/18/16 00:30 (Grace-Colace) 1 tab BID PO 11/18/16 09:00 11/28/16 08:46 (Milk Of Magnesia Liq) 30 ml Q12H PRN PO 11/18/16 00:30 (Dulcolax Supp) 10 mg DAILY PRN RECTAL 11/18/16 00:30 (Lactulose Liq) 30 ml DAILY PRN PO 11/18/16 00:30 (Cordarone) 200 mg DAILY PO 11/18/16 09:00 Hold 11/18/16 08:08 (Coreg) 3.125 mg Q12HR PO 11/18/16 09:00 11/28/16 08:46 (Neurontin) 300 mg TID PO 11/18/16 09:00 11/28/16 16:18 ([place] Candelario Beaver) 2 spray Q6HR PRN EACH NARE 11/18/16 00:30 11/24/16 09:57 (Phazyme Chew) 80 mg QID PRN PO 11/18/16 00:30 (Flomax) 0.4 mg DAILY PO 11/18/16 09:00 11/28/16 08:46 (D50w (Vial) Inj) 50 ml UNSCH PRN IV 11/18/16 00:45 (Glucagon Inj) 1 mg UNSCH PRN OTHER 11/18/16 00:45 Fluconazole 100 mg 100 mg DAILY PO 11/20/16 09:00 11/28/16 08:48 (Zosyn 4.5 Gm Premix) 100 ml @ 100 mls/hr Q6H IV 11/21/16 14:00 11/28/16 12:09 (Pepcid) 20 mg BID PO 11/23/16 09:00 11/28/16 08:47 (NovoLOG SUPPLEMENTAL SCALE) 1 ACHS SQ 11/23/16 11:00 11/28/16 16:00 (KCl) 20 meq DAILY PO 11/23/16 09:00 11/28/16 08:46 (Vitamin C) 500 mg DAILY PO 11/23/16 09:00 11/28/16 08:46 ([place] 5-325 Mg) 1 tab Q6H PRN PO 11/23/16 08:00 11/28/16 08:46 Escitalopram Oxalate 10 mg 10 mg DAILY PO 11/23/16 09:00 Hold 11/24/16 09:00 (Heparin-D5W Inj) 250 ml @ 0 mls/hr TITRATE IV 11/23/16 08:00 11/28/16 16:11 (Lasix Inj) 40 mg BID@,18 IV PUSH 11/25/16 18:00 11/28/16 16:18 (Coumadin) 5 mg DAILY@1600 PO 11/26/16 16:00 11/28/16 16:17 (SoluMEDROL INJ) 40 mg Q6HR IV PUSH 11/27/16 12:00 11/28/16 16:17 (Santyl Oint) 1 applic DAILY TOPICAL 11/27/16 14:00 11/28/16 08:48 Urinary Catheter: No Date of Insertion: Nov 25, 2016 Vascular Central Line Catheter: No A/P Problem List: (1) Severe sepsis ICD Code: A41.9 Status: Acute (2) PVD (peripheral vascular disease) ICD Code: I73.9 Status: Acute (3) Acute systolic (congestive) heart failure ICD Code: I50.21 Status: Acute (4) GI bleed ICD Code: K92.2 Status: Acute (5) DM (diabetes mellitus) ICD Code: E11.9 Status: Acute (6) Acute respiratory failure ICD Code: J96.00 Status: Acute (7) PAD (peripheral artery disease) ICD Code: I73.9 Status: Chronic (8) Afib ICD Code: I48.91 Status: Chronic (9) Acute metabolic encephalopathy ICD Code: G93.41 Status: Resolved (10) Anemia ICD Code: D64.9 Status: Acute (11) UTI (urinary tract infection) ICD Code: N39.0 Status: Acute Assessment and Plan Neuro/Psych: Depression Chronic pain syndrome History of TIA Monitor neuro status and limit sedatives. 11/19 Ct brain: No acute findings. Continue home medications Neurontin 300 mg 3 times a day for neuropathy Continue Lexapro 10 mg by mouth daily for depression [place]/morphine for pain management Pulm: Obstructive sleep apnea Chronic type I hypoxic respiratory failure - 2 L nasal cannula History COPD COPD with acute exacerbation. Continue with oxygen keep sat >92%, Continue with bronchodilators scheduled every 6 hours and every 2 hours when necessary dyspnea NIPPV PRN for resp distress. Noted on 2 L nasal cannula chronically home at night 11/28 patient with bilateral expiratory wheezing on 11/27. Patient started on IV steroids. Continue supplemental oxygen to keep oxygen saturation 192%. Exacerbation much improved today. Patient is sating 97% on 2 L nasal cannula. I will decrease IV Solumedrol from 40 mg IV every 6 hours to 40 mg IV every 8 hours. CV: Coronary artery disease - heart catheterization 01/24 revealed three-vessel coronary disease unamenable to intervention. Seen by Dr. Montgomery. Signed off Acute systolic heart failure -ejection fraction 35% Hypertension Dyslipidemia Peripheral vascular disease - Chronic atrial fibrillation currently in normal sinus rhythm Monitor HR and BP keep MAP>65mmHg. On Coreg 3.125 mg BID/home medication with holding parameters Echo showed EF 35-40%, mild TR. LV dysfunction. RV dilatation. Which is a change from 55% 01/24, Cards has followed and signed off- Dr. Montgomery. Not a candidate for ASA or anticoagulation given severe anemia. Not on statin due to elevated LFT's. On Lipitor 20 mill grams by mouth daily at home On amiodarone 200 mg by mouth daily/home medication Seen by Dr. Johansen for right lower extremity wound. Very poor anterior tibial blood flow. Occlusive peroneal/posterior tibial disease. 11/28 Very poor surgical candidate. Awaiting plastic surgery input. : BPH Resume Flomax 0.4 mill grams by mouth daily/home medication Currently on Chase catheter in place. Monitor renal function, I/O's, electrolytes replacement per protocol. Renal function is improving, monitor BMP, on Lasix 40mg IV BID GI: Gastroesophageal reflux disease Hiatal hernia History of Kuhn's esophagus History of bowel dysmotility and chronic Reglan On mechanical soft heart healthy diet per speech Monitor LFT;s..trending down, Hepatitis profile is negative. US liver 11/18: No intrahepatic biliary ductal dilatation. On Reglan 10 mg 4 times a day as needed here in the hospital. Scheduled Reglan [facility] Currently on Pepcid. On Prilosec 20 mg by mouth daily at [facility] ID: Polymicrobial right lower extremity wound infection VRE/funguria Proteus pneumonia Continue abx( Zosyn, Diflucan, Zyvox) monitor for signs of infections ( Fever, WBC) Wound care, Plastic and vascular surgery are following- No acute intervention at this time. Pertinent cultures 11/21/ blood cultures 2 - no growth 11/21 - sputum - negative 11/21 - urine - negative 11/18 - blood cultures 2 - negative 11/18 - sputum - negative 11/17 Sputum cx: Proteus, 11/17 Urine cx: VRE and C. Kreusi 11/17 Wound cx: Proteus, Pseudomonas, Staph Aureus, gram-negative jennifer, enterococcus faecalis and Raffinosus Heme: Chronic warfarin Acute blood loss anemia Admission with warfarin toxicity Monitor CBC, Coags, s/p transfusion 2units PRBC, 6u FFP, Vitamin K 10mg x1 on arrival s/p transfusion 1unit PRBC 11/19 Last INR is 1.5. Off Coumadin due to anemia GI will not do endoscopy of secondary to cardiac issues Continue anticoagulation with heparin drip. 11/28 Hemoglobin stable - continue to monitor cbc. Endo: Diabetes mellitus SSI with accuchecks Currently on sliding scale insulin Accu-Cheks before meals/at bedtime. 2 units of sliding scale insulin past 24 hours. On Levemir 15 units at night with sliding scale insulin at retirement 11/28 Blood sugars stable. GI prophylaxis with Pepcid DVT prophylaxis - on heparin IV drip. Discharge Planning ok to transfer to the medical floor. Problem Qualifiers (1) Acute respiratory failure: Qualified Code: J96.00 - Acute respiratory failure, unspecified whether with hypoxia or hypercapnia (2) Anemia: Qualified Code: D64.9 - Anemia, unspecified type (3) UTI (urinary tract infection): Qualified Code: N39.0 - Urinary tract infection without hematuria, site unspecified Heriberto Bryant MD Nov 28, 2016 18:15
[2016-11-28] MEDS: SODIUM CHLORIDE 0.9% FLUSH 10 ML FLUSH SCH (19:58)
[2016-11-29] VITALS (12 sets, daily range): BP systolic 118–150; BP diastolic 60–80; PULSE 74–100; RESP 21–35; TEMP 97.6–98.3; O2SAT 94–98
[2016-11-29] MEDS: CHLORHEXIDINE GLUCONATE 2 % 1 PACK (2 CLOTHS) TOP SCH (02:12)
[2016-11-29] MEDS: PIPERACIL-TAZO 4.5 GM PREMIX 100 ML IV SCH ×4 (02:12→19:56)
[2016-11-29 04:26] LABS: AUTOMATED NEUTROPHIL # 7.1 TH/MM3 (1.8-7.7); BASOPHIL % 0.1 % (0.0-2.0); HEMATOCRIT 27.2 % (39.0-51.0); HEMO FLAGS DIFF FINAL; LYMPH % 5.5 % (9.0-44.0); LYMPHOCYTE # 0.4 TH/MM3 (1.0-4.8); MEAN CELL VOLUME 88.3 FL (80.0-100.0); MEAN CORPUSCULAR HEMOGLOBIN 29.7 PG (27.0-34.0); MEAN CORPUSCULAR HGB CONC 33.6 % (32.0-36.0); NEUT % 93.4 % (16.0-70.0); PLATELET COUNT 193 TH/MM3 (150-450); RED BLOOD COUNT 3.08 MIL/MM3 (4.50-5.90); RED CELL DISTRIBUTION WIDTH 16.4 % (11.6-17.2); WHITE BLOOD COUNT 7.6 TH/MM3 (4.0-11.0)
[2016-11-29 04:28] LABS: ALT (GPT) 92 U/L (12-78); ANION GAP 10 MEQ/L (5-15); AST (GOT) 60 U/L (15-37); BICARBONATE 28.9 MEQ/L (21.0-32.0); BLOOD UREA NITROGEN 34 MG/DL (7-18); CHLORIDE 103 MEQ/L (98-107); GLOMERULAR FILTRATION RATE 62 ML/MIN (>89); MAGNESIUM 2.5 MG/DL (1.5-2.5); POTASSIUM 3.7 MEQ/L (3.5-5.1); SODIUM (NA) 142 MEQ/L (136-145)
[2016-11-29 04:30] LABS: ALKALINE PHOSPHATASE 81 U/L (45-117); TOTAL BILIRUBIN ADULT 0.9 MG/DL (0.2-1.0)
[2016-11-29 04:31] LABS: APTT (PATIENT) 72.7 SEC (24.3-30.1)
[2016-11-29] MEDS: methylPREDNISolone SOD SUCC 40 MG/1 ML VIAL IV PUSH SCH (05:40)
[2016-11-29] MEDS: INSULIN ASPART SUPPLEMENTAL SCALE SQ SCH ×4 (05:41→19:57)
[2016-11-29] MEDS: HEPARIN-D5W INJ 250 ML IV SCH ×2 (05:43→22:53)
[2016-11-29] MEDS: ACETAMINOPHEN/HYDROcodone 325 MG/5 MG TAB PO PRN (05:44)
[2016-11-29] MEDS: RESP: ALBUTEROL 2.5 MG/IPRATROPIUM 0.5 MG NEB (SCH) NEB ×3 (06:39→19:52)
[2016-11-29] MEDS: ARTIFICIAL TEARS OPTH SOLN 15 ML BTL EACH EYE SCH ×3 (09:00→17:11)
[2016-11-29] MEDS: FUROSEMIDE 40 MG TAB PO SCH (09:00)
[2016-11-29] MEDS: ASCORBIC ACID 500 MG TAB PO SCH (09:15)
[2016-11-29] MEDS: TAMSULOSIN HCL 0.4 MG CAP PO SCH (09:15)
[2016-11-29] MEDS: FAMOTIDINE 20 MG TAB PO SCH ×2 (09:15→19:57)
[2016-11-29] MEDS: DOCUSATE SODIUM 50 MG/SENNA 8.6 MG TAB PO SCH ×2 (09:15→19:57)
[2016-11-29] MEDS: GABAPENTIN 300 MG CAP PO SCH ×3 (09:15→16:04)
[2016-11-29] MEDS: CARVEDILOL 3.125 MG TAB PO SCH ×2 (09:16→19:57)
[2016-11-29] MEDS: FLUCONAZOLE 100 MG TAB PO SCH (09:16)
[2016-11-29] MEDS: POTASSIUM CHLORIDE 20 MEQ CONTROLLED RELEASE TAB PO SCH (09:16)
[2016-11-29] MEDS: SODIUM CHLORIDE 0.9% FLUSH 10 ML FLUSH SCH ×2 (09:17→19:56)
[2016-11-29] MEDS: COLLAGENASE OINT 30 GM TUBE TOPICAL SCH (09:22)
[2016-11-29] MEDS ORDERED: ACETAMINOPHEN/HYDROcodone 325 MG/7.5 MG TAB PO PRN (09:45)
--- NOTE | 2016-11-29 10:05 | HHI.PR ---
Subjective Remarks Pt denies any CP/SOB/N/V Working w speech therapist who states that pt is doing well and she will sign off Discussed w RN, pt on both coumadin and heparin gtt. Objective Vitals Vital Signs Date Time Temp Pulse Resp B/P Pulse Ox O2 Delivery O2 Flow Rate FiO2 11/29/16 07:33 94 Nasal Cannula 2.00 11/29/16 06:00 88 11/29/16 04:00 89 11/29/16 04:00 97.6 74 25 134/80 96 11/29/16 02:00 74 11/29/16 00:00 98.3 81 26 139/74 11/29/16 00:00 79 11/28/16 22:00 83 11/28/16 20:00 98.7 81 28 136/65 95 11/28/16 20:00 81 11/28/16 19:22 97 Nasal Cannula 2.00 11/28/16 18:00 76 11/28/16 16:00 98.1 81 20 135/67 97 11/28/16 16:00 76 11/28/16 14:00 98.1 75 20 112/56 97 11/28/16 14:00 75 11/28/16 12:00 75 11/28/16 12:00 98.1 75 20 112/56 97 11/28/16 10:00 92 I/O 11/28/16 11/28/16 11/28/16 11/29/16 11/29/16 11/29/16 07:00 15:00 23:00 07:00 15:00 23:00 Intake Total 151 ml 550 ml 378 ml 457 ml Output Total 350 ml 425 ml 350 ml 250 ml Balance -199 ml 125 ml 28 ml 207 ml Intake Oral 280 ml 50 ml 200 ml IV Total 151 ml 270 ml 328 ml 257 ml Output Urine Total 350 ml 425 ml 350 ml 250 ml # Bowel Movements 0 0 1 Result Diagram: 11/29/16 0320 11/29/16 0320 Imaging Last Impressions Chest X-Ray 11/25/16 0000 Signed Impressions: Service Date/Time: Friday, November 25, 2016 15:41 - CONCLUSION: 1. Status post extubation and removal of NGT. 2. Stable patchy bilateral interstitial and airspace disease with probable trace bilateral pleural effusions. Differential considerations include pulmonary edema versus diffuse infection versus ARDS. Richard Gonzalez MD Head CT 11/19/16 0000 Signed Impressions: Service Date/Time: Saturday, November 19, 2016 12:42 - CONCLUSION: 1. Ventricular prominence as described above. This is stable in the interval. 2. There is no other significant interval change. Nahid Cazares MD FACR Liver Ultrasound 11/18/16 0000 Signed Impressions: Service Date/Time: Friday, November 18, 2016 08:04 - CONCLUSION: 1. Small bilateral pleural effusions. 2. Prominent somewhat sonodense liver without intrahepatic biliary ductal dilatation. Nahid Cazares MD FACR Objective Remarks awake oriented x 3,, speech soft and pt is somewhat quiet lungs with decreased breath sounds bilaterally but clear. abdomen- obese, good bowel sounds, nontender left AKA, right LE- with necrotic open wounds which were not evaluated today, dressing in place, trace edema on foot bilateral buttocks and cheeks of buttocks + wounds/decubiti- not evaluated today condom catheter in place, Date of Insertion: Nov 25, 2016 A/P Problem List: (1) Severe sepsis ICD Code: A41.9 Status: Acute (2) PVD (peripheral vascular disease) ICD Code: I73.9 Status: Acute (3) Acute systolic (congestive) heart failure ICD Code: I50.21 Status: Acute (4) GI bleed ICD Code: K92.2 Status: Acute (5) DM (diabetes mellitus) ICD Code: E11.9 Status: Acute (6) Acute respiratory failure ICD Code: J96.00 Status: Acute (7) PAD (peripheral artery disease) ICD Code: I73.9 Status: Chronic (8) Afib ICD Code: I48.91 Status: Chronic (9) Acute metabolic encephalopathy ICD Code: G93.41 Status: Resolved (10) Anemia ICD Code: D64.9 Status: Acute (11) UTI (urinary tract infection) ICD Code: N39.0 Status: Acute Assessment and Plan Depression Chronic pain syndrome History of TIA Monitor neuro status and limit sedatives. 11/19 Ct brain: No acute findings. Continue home medications Neurontin 300 mg 3 times a day for neuropathy Lexapro 10 mg by mouth daily held since 11/27 will resume I have adjusted pt's pain regimen.[place]/morphine prn Obstructive sleep apnea Chronic type I hypoxic respiratory failure - 2 L nasal cannula History COPD COPD with acute exacerbation. Continue with oxygen keep sat >92%, Continue with bronchodilators scheduled every 6 hours and every 2 hours when necessary dyspnea NIPPV PRN for resp distress. Noted on 2 L nasal cannula chronically home at night 11/28 patient with bilateral expiratory wheezing on 11/27. Patient was started on IV steroids. Continue supplemental oxygen to keep oxygen saturation 89-92% . Exacerbation much improved today. I will decrease IV Solumedrol to 40 mg IV every 12 hours Coronary artery disease - heart catheterization 01/24 revealed three-vessel coronary disease unamenable to intervention. Seen by Dr. Montgomery. Signed off Acute systolic heart failure -ejection fraction 35% Hypertension Dyslipidemia Peripheral vascular disease - Chronic atrial fibrillation currently in normal sinus rhythm Monitor HR and BP keep MAP>65mmHg. On Coreg 3.125 mg BID/home medication with holding parameters Echo showed EF 35-40%, mild TR. LV dysfunction. RV dilatation. Which is a change from 55% 01/24, Cards evaluated the patient and had no further recs, no intervention at this time, cards has signed off- Dr. Montgomery. Not on statin due to elevated LFT's which were down but mildly elevated yesterday. Repeat. On Lipitor 20 mill grams by mouth daily at home amiodarone 200 mg by mouth daily/home medication on hold Seen by Dr. Johansen for right lower extremity wound. Very poor anterior tibial blood flow. Occlusive peroneal/posterior tibial disease. 11/28 Very poor surgical candidate. Awaiting plastic surgery input, Dr. Jensen consulted. BPH on Flomax 0.4 mill grams by mouth daily/home medication Currently on Chase catheter in place. Monitor renal function, I/O's, electrolytes replacement per protocol. Renal function is improving, monitor BMP, on Lasix 40mg po daily Gastroesophageal reflux disease Hiatal hernia History of Kuhn's esophagus History of bowel dysmotility and chronic Reglan On mechanical soft heart healthy diet per speech, they will sign off Monitor LFT;s..trending down but mildly elevated, monitor, Hepatitis profile is negative. US liver 11/18: No intrahepatic biliary ductal dilatation. On Reglan 10 mg 4 times a day as needed here in the hospital. [facility] Currently on Pepcid. On Prilosec 20 mg by mouth [facility] Polymicrobial right lower extremity wound infection VRE/funguria Proteus pneumonia Continue abx( Zosyn, Diflucan) s/p Zyvox d/rose on 11/27/16. monitor for signs of infections ( Fever, WBC) Wound care, Plastic and vascular surgery are following- awaiting recs from plastic sx. Per [facility] sx options are debridement versus above-knee amputation. Pertinent cultures 11/21/ blood cultures 2 - no growth 11/21 - sputum - negative 11/21 - urine - negative 11/18 - blood cultures 2 - negative 11/18 - sputum - negative 11/17 Sputum cx: Proteus, 11/17 Urine cx: VRE and C. Kreusi 11/17 Wound cx: Proteus, Pseudomonas, Staph Aureus, gram-negative jennifer, enterococcus faecalis and Raffinosus Chronic warfarin Acute blood loss anemia Admission with warfarin toxicity Monitor CBC, Coags, s/p transfusion 2units PRBC, 6u FFP, Vitamin K 10mg x1 on arrival s/p transfusion 1unit PRBC 11/19 Last INR is 1.5. Pt was restarted on coumadin on 11/26/16 w heparin gtt ( bridging) and thus far, Hb stable at 9.1 (11/29). Continue to monitor. GI will not do endoscopy of secondary to cardiac issues. no active GI bleed. Diabetes mellitus SSI with accuchecks Currently on sliding scale insulin Accu-Cheks before meals/at bedtime. 2 units of sliding scale insulin past 24 hours. not on long acting insulin at this time. monitor and adjust insulin regimen as needed GI prophylaxis with Pepcid DVT prophylaxis - on heparin IV drip/coumadin. Monitor INR Discharge Planning transfer to regular floor. Monitor H&H awaiting final recs from surgical teams. Appreciate Input from all consultants continue IV abx Problem Qualifiers (1) Acute respiratory failure: Qualified Code: J96.00 - Acute respiratory failure, unspecified whether with hypoxia or hypercapnia (2) Anemia: Qualified Code: D64.9 - Anemia, unspecified type (3) UTI (urinary tract infection): Qualified Code: N39.0 - Urinary tract infection without hematuria, site unspecified Nelda Hernandez MD Nov 29, 2016 10:05
--- NOTE | 2016-11-29 10:49 | HHI.IDPN ---
Subjective Subjective Remarks Notes reviewed D/W RN Has transfer orders, no room yet He is now stable from respiratory standpoint On nasal O2 Not SOB NO fever BP ok Wound C/S - polymicrobial Repeat UC with lower colony count yeast Spoke with plastics - due to PVD, will continue with chemical debridement; he is on santyl to his wounds daily Antibiotics Diflucan Zosyn Past Medical History Chronic atrial fibrillation on Coumadin History of congestive heart failure ejection fraction on 03/2016 50-55% COPD Hypertension History of UTI Peripheral vascular disease Diabetic mellitus Chronic pain Bilateral diabetic foot ulcers History of osteomyelitis left lower extremity Past Surgical History Cholecystectomy Tonsillectomy Previous revascularization, has had stent placement S/P L AKA Jun 2016 Allergies: Coded Allergies: *MDRO Multi-Drug Resistant Organism (Verified Adverse Reaction, Unknown, MRSA, 11/21/16) MRSA (toe wound) - 01/27/16; (foot) - 05/24/16 MRSA PCR Screen POSITIVE - 05/26/16 VRE (urine)-11/17/16 Objective . Vital Signs Date Time Temp Pulse Resp B/P Pulse Ox O2 Delivery O2 Flow Rate FiO2 11/29/16 07:33 94 Nasal Cannula 2.00 11/29/16 06:00 88 11/29/16 04:00 89 11/29/16 04:00 97.6 74 25 134/80 96 11/29/16 02:00 74 11/29/16 00:00 98.3 81 26 139/74 11/29/16 00:00 79 11/28/16 22:00 83 11/28/16 20:00 98.7 81 28 136/65 95 11/28/16 20:00 81 11/28/16 19:22 97 Nasal Cannula 2.00 11/28/16 18:00 76 11/28/16 16:00 98.1 81 20 135/67 97 11/28/16 16:00 76 11/28/16 14:00 98.1 75 20 112/56 97 11/28/16 14:00 75 11/28/16 12:00 75 11/28/16 12:00 98.1 75 20 112/56 97 11/28/16 11/28/16 11/29/16 15:00 23:00 07:00 Intake Total 550 ml 378 ml 457 ml Output Total 425 ml 350 ml 250 ml Balance 125 ml 28 ml 207 ml Intake Oral 280 ml 50 ml 200 ml IV Total 270 ml 328 ml 257 ml Output Urine Total 425 ml 350 ml 250 ml # Bowel Movements 0 1 . Laboratory Tests Test 11/28/16 11/29/16 03:21 03:20 White Blood Count 7.9 TH/MM3 7.6 TH/MM3 Red Blood Count 3.17 MIL/MM3 3.08 MIL/MM3 Hemoglobin 9.2 GM/DL 9.1 GM/DL Hematocrit 28.4 % 27.2 % Mean Corpuscular Volume 89.6 FL 88.3 FL Mean Corpuscular Hemoglobin 29.0 PG 29.7 PG Mean Corpuscular Hemoglobin 32.3 % 33.6 % Concent Red Cell Distribution Width 16.1 % 16.4 % Platelet Count 187 TH/MM3 193 TH/MM3 Mean Platelet Volume 8.1 FL 8.0 FL Neutrophils (%) (Auto) 89.8 % 93.4 % Lymphocytes (%) (Auto) 5.7 % 5.5 % Monocytes (%) (Auto) 4.3 % 1.0 % Eosinophils (%) (Auto) 0.1 % 0.0 % Basophils (%) (Auto) 0.1 % 0.1 % Neutrophils # (Auto) 7.1 TH/MM3 7.1 TH/MM3 Lymphocytes # (Auto) 0.5 TH/MM3 0.4 TH/MM3 Monocytes # (Auto) 0.3 TH/MM3 0.1 TH/MM3 Eosinophils # (Auto) 0.0 TH/MM3 0.0 TH/MM3 Basophils # (Auto) 0.0 TH/MM3 0.0 TH/MM3 CBC Comment DIFF FINAL DIFF FINAL Differential Comment Laboratory Tests Test 11/28/16 11/29/16 03:21 03:20 Sodium Level 143 MEQ/L 142 MEQ/L Potassium Level 3.5 MEQ/L 3.7 MEQ/L Chloride Level 103 MEQ/L 103 MEQ/L Carbon Dioxide Level 28.7 MEQ/L 28.9 MEQ/L Anion Gap 11 MEQ/L 10 MEQ/L Blood Urea Nitrogen 26 MG/DL 34 MG/DL Creatinine 1.22 MG/DL 1.17 MG/DL Estimat Glomerular Filtration 59 ML/MIN 62 ML/MIN Rate Random Glucose 181 MG/DL 200 MG/DL Calcium Level 8.5 MG/DL 8.8 MG/DL Phosphorus Level 3.6 MG/DL 3.9 MG/DL Magnesium Level 2.5 MG/DL 2.5 MG/DL Total Bilirubin 0.8 MG/DL 0.9 MG/DL Aspartate Amino Transf 40 U/L 60 U/L (AST/SGOT) Alanine Aminotransferase 67 U/L 92 U/L (ALT/SGPT) Alkaline Phosphatase 86 U/L 81 U/L Total Protein 7.7 GM/DL 7.5 GM/DL Albumin 2.2 GM/DL 2.3 GM/DL Microbiology Date/Time Procedure Status Source Growth 11/26/16 12:00 Urine Culture - Final Complete Urine Catheterized Urine Natalie [facility] Imaging Last Impressions Chest X-Ray 11/21/16 0000 Signed Impressions: Service Date/Time: Monday, November 21, 2016 07:28 - CONCLUSION: No significant change. Nickolas Jordan MD Head CT 11/19/16 0000 Signed Impressions: Service Date/Time: Saturday, November 19, 2016 12:42 - CONCLUSION: 1. Ventricular prominence as described above. This is stable in the interval. 2. There is no other significant interval change. Nahid Cazares MD FACR Liver Ultrasound 11/18/16 0000 Signed Impressions: Service Date/Time: Friday, November 18, 2016 08:04 - CONCLUSION: 1. Small bilateral pleural effusions. 2. Prominent somewhat sonodense liver without intrahepatic biliary ductal dilatation. Nahid Cazares MD FACR Physical Exam GENERAL: awake and alert, on nasal O2, NAD SKIN: Warm and dry. Has scattered purpuric lesions in his UE. HEAD: Atraumatic. Normocephalic. No temporal wasting, or tenderness. EYES: [place]well conjunctiva. No petechia or hemorrhage. Extraocular movements full and intact. No scleral icterus. No injection or drainage. EARS, NOSE AND THROAT: Nose without bleeding or purulent nasal discharge. Moist mucosa, with some mild white coating on his tongue. NECK: Trachea midline. Supple and not tender, no meningeal signs CARDIOVASCULAR: Regular rate and rhythm. No murmurs, rubs or gallops heard RESPIRATORY: Coarse BS janice, equal BS. Decreased BS at the bases. No wheezing or rhonchi ABDOMEN: Soft, non-tender, nondistended. Bowel sounds present and normoactive. No guarding. No rebound. No organomegaly. EXTREMITIES: S/P L AKA with well healed stump. R foot - there is a dry eschar about quarter size over his 5th MT, and there is an ulcer on his R heel that is about 1 in x 0.5 inch with pink base, and no surrounding cellulitis and some serous drainage. On his R lateral leg is a large infected open wound with intact dressing, still with significant necrotic tissue, (+) odor. No R calf tenderness. R foot slightly cool, but the rest of his RLE is warm. NEUROLOGICAL: Awake and alert. 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 No facial asymmetry, full EOM PSYCHIATRIC: Awake and cooperative LINE: No evidence of infection : Cabello in place, with sediment in his urine Assessment & Plan Remarks IMPRESSION Sepsis, source? - has bilateral infiltrates and hypoxemia, and likely with HCAP, possibly with CHF on top - has UTI (no cabello in [place]) - infected R leg wound, patient with underlying PVD Respiratory failure, PNA, CHF - has Proteus PNA Fevers PVD, infected wound R leg, not surgical cendidate per vascular - previous revascularization and L AKA UTI - has VRE and Natalie in UC - better Infected wounds RLE, ?decubitus - C/S PSAE, Proteus, Enterococcus, Staph aureus Has MDR organisms on his C/S RECOMMENDATION Continue Zosyn, PSAE, MSSA and other GNR - in wounds and sputum - no oral option for the GNR in wounds An option for Abx if he gets D/C is Cefepime IV BID + Augmentin po, vs Zosyn q6H Would like to give at least 14 days Abx Wound care per plastics - rec santyl to wound daily, for chemical debridement Continue Diflucan for Natalie in urine, improving, will put end date D/W RN D/W Gogo Montes MD Nov 29, 2016 10:49
--- NOTE | 2016-11-29 11:15 | PD.CAR.PN ---
CVT Progress Note Subjective/Hospital Course: Referral received Full consult [facility] Lugo 11/27/16 Patient is now off the ventilator laying in bed. He appears to be quite ill. The right leg has decubitus ulcer on the lateral aspect of the ankle and another one higher up encompassing about 3 injury by 7 inch area of necrotic tissue and devitalized skin and fat reaching to the muscle fascia. As per my consultation, this patient does not have surgically or endovascularly reconstructable vascular disease with trifurcation occlusion, posterior tibial artery occlusion, peroneal artery occlusion and poor flow to the very diseased anterior tibial artery. In addition patient is bedridden. I do not plan to do any surgical procedure on this gentleman as far as reconstruction is concerned. The best we can do at this point is debriding the area and eventually sooner later patient will end up with above-knee amputation. 11/28/16 Patient does not unreconstructable disease in his leg and the only options are debridement versus above-knee amputation Patient is a poor candidate for any surgical procedure 11/29/16 As above noted patient will either need above-knee amputation or no other procedures Simple debridement in this situation is possible yet does not complete the therapy Patient is a poor candidate for any surgery Please let me know if anything changes and I'll be available to assist surgically if necessary Objective: Vital Signs Date Time Temp Pulse Resp B/P Pulse Ox O2 Delivery O2 Flow Rate FiO2 11/29/16 10:00 100 11/29/16 08:00 76 11/29/16 08:00 97.6 76 21 120/60 96 11/29/16 07:33 94 Nasal Cannula 2.00 11/29/16 06:00 88 11/29/16 04:00 89 11/29/16 04:00 97.6 74 25 134/80 96 11/29/16 02:00 74 11/29/16 00:00 98.3 81 26 139/74 11/29/16 00:00 79 11/28/16 22:00 83 11/28/16 20:00 98.7 81 28 136/65 95 11/28/16 20:00 81 11/28/16 19:22 97 Nasal Cannula 2.00 11/28/16 18:00 76 11/28/16 16:00 98.1 81 20 135/67 97 11/28/16 16:00 76 11/28/16 14:00 98.1 75 112/56 97 11/28/16 14:00 75 11/28/16 12:00 75 11/28/16 12:00 98.1 11256 97 Labs: Laboratory Tests Test 11/29/16 03:20 White Blood Count 7.6 TH/MM3 (4.0-11.0) Red Blood Count 3.08 MIL/MM3 (4.50-5.90) Hemoglobin 9.1 GM/DL (13.0-17.0) Hematocrit 27.2 % (39.0-51.0) Mean Corpuscular Volume 88.3 FL (80.0-100.0) Mean Corpuscular Hemoglobin 29.7 PG (27.0-34.0) Mean Corpuscular Hemoglobin 33.6 % Concent (32.0-36.0) Red Cell Distribution Width 16.4 % (11.6-17.2) Platelet Count 193 TH/MM3 (150-450) Mean Platelet Volume 8.0 FL (7.0-11.0) Neutrophils (%) (Auto) 93.4 % (16.0-70.0) Lymphocytes (%) (Auto) 5.5 % (9.0-44.0) Monocytes (%) (Auto) 1.0 % (0.0-8.0) Eosinophils (%) (Auto) 0.0 % (0.0-4.0) Basophils (%) (Auto) 0.1 % (0.0-2.0) Neutrophils # (Auto) 7.1 TH/MM3 (1.8-7.7) Lymphocytes # (Auto) 0.4 TH/MM3 (1.0-4.8) Monocytes # (Auto) 0.1 TH/MM3 (0-0.9) Eosinophils # (Auto) 0.0 TH/MM3 (0-0.4) Basophils # (Auto) 0.0 TH/MM3 (0-0.2) CBC Comment DIFF FINAL Differential Comment Activated Partial 72.7 SEC Thromboplast Time (24.3-30.1) Sodium Level 142 MEQ/L (136-145) Potassium Level 3.7 MEQ/L (3.5-5.1) Chloride Level 103 MEQ/L (98-107) Carbon Dioxide Level 28.9 MEQ/L (21.0-32.0) Anion Gap 10 MEQ/L (5-15) Blood Urea Nitrogen 34 MG/DL (7-18) Creatinine 1.17 MG/DL (0.60-1.30) Estimat Glomerular Filtration 62 ML/MIN (>89) Rate Random Glucose 200 MG/DL (74-106) Calcium Level 8.8 MG/DL (8.5-10.1) Phosphorus Level 3.9 MG/DL (2.5-4.9) Magnesium Level 2.5 MG/DL (1.5-2.5) Total Bilirubin 0.9 MG/DL (0.2-1.0) Aspartate Amino Transf 60 U/L (15-37) (AST/SGOT) Alanine Aminotransferase 92 U/L (12-78) (ALT/SGPT) Alkaline Phosphatase 81 U/L (45-117) Total Protein 7.5 GM/DL (6.4-8.2) Albumin 2.3 GM/DL (3.4-5.0) Result Diagram: 11/29/16 0320 11/29/16 0320 Dawson Johansen MD Nov 29, 2016 11:14
[2016-11-29] MEDS: WARFARIN SOD 5 MG TAB PO SCH (16:04)
[2016-11-29] MEDS ORDERED: SIMETHICONE 80 MG CHEWABLE TAB PO PRN (16:45)
[2016-11-29] MEDS ORDERED: methylPREDNISolone SOD SUCC 40 MG/1 ML VIAL IV PUSH SCH (21:00)
[2016-11-30] VITALS (7 sets, daily range): BP systolic 126–142; BP diastolic 61–71; PULSE 70–89; RESP 16–136; TEMP 97.6–98.4; O2SAT 96–100
[2016-11-30] MEDS: PIPERACIL-TAZO 4.5 GM PREMIX 100 ML IV SCH ×4 (01:51→20:37)
[2016-11-30] MEDS: CHLORHEXIDINE GLUCONATE 2 % 1 PACK (2 CLOTHS) TOP SCH (04:00)
--- NOTE | 2016-11-30 05:31 | RADRPT ---
EXAM DATE/TIME: 11/30/2016 03:40 [facility] COMPARISON: CHEST SINGLE AP, November 25, 2016, 15:41. INDICATIONS : Shortness of breath, possible pulmonary disease. MEDICAL HISTORY : Cardiovascular disease. Chronic obstructive pulmonary disease. Diabetes mellitus type II. SURGICAL HISTORY : None. ENCOUNTER: Subsequent ACUITY: 2 days PAIN SCORE: 0/10 LOCATION: Bilateral chest FINDINGS: Widespread air space opacities are again seen of both lungs, not significantly changed. Small, bilate ral pleural effusions are present and also appears similar. No pneumothorax. Heart size stable, but l imits of normal. CONCLUSION: No significant change widespread pulmonary opacities and small bilateral effusions. Bret Truong MD on November 30, 2016 at 5:28 Board Certified Radiologist. This report was verified electronically.
[2016-11-30 06:12] LABS: APTT (PATIENT) 68.2 SEC (24.3-30.1)
[2016-11-30 06:24] LABS: ALT (GPT) 116 U/L (12-78); ANION GAP 8 MEQ/L (5-15); AST (GOT) 64 U/L (15-37); BICARBONATE 27.9 MEQ/L (21.0-32.0); BLOOD UREA NITROGEN 38 MG/DL (7-18); CHLORIDE 103 MEQ/L (98-107); GLOMERULAR FILTRATION RATE 63 ML/MIN (>89); POTASSIUM 3.8 MEQ/L (3.5-5.1); SODIUM (NA) 139 MEQ/L (136-145)
[2016-11-30 06:27] LABS: ALKALINE PHOSPHATASE 81 U/L (45-117); TOTAL BILIRUBIN ADULT 0.9 MG/DL (0.2-1.0)
[2016-11-30] MEDS: RESP: ALBUTEROL 2.5 MG/IPRATROPIUM 0.5 MG NEB (SCH) NEB ×3 (08:08→19:53)
[2016-11-30] MEDS: INSULIN ASPART SUPPLEMENTAL SCALE SQ SCH ×4 (08:11→20:37)
[2016-11-30] MEDS: SODIUM CHLORIDE 0.9% FLUSH 10 ML FLUSH SCH ×2 (08:14→20:37)
--- NOTE | 2016-11-30 09:35 | HHI.PR ---
Subjective Remarks Pt complains of some pain in his RLE, but states that it is relieved w po pain pills. denies any CP/SOB/N/V wants to eat his breakfast Objective Vitals Vital Signs Date Time Temp Pulse Resp B/P Pulse Ox O2 Delivery O2 Flow Rate FiO2 11/30/16 04:00 98.2 79 136 136/71 97 11/30/16 00:00 98.4 79 47 137/69 98 11/29/16 20:00 98.0 79 26 118/63 97 11/29/16 19:52 95 Nasal Cannula 4.00 11/29/16 16:00 98.3 80 25 135/67 98 11/29/16 16:00 80 11/29/16 14:00 89 11/29/16 12:00 97.8 93 35 150/71 94 11/29/16 12:00 93 11/29/16 10:00 100 I/O 11/29/16 11/29/16 11/29/16 11/30/16 11/30/16 11/30/16 07:00 15:00 23:00 07:00 15:00 23:00 Intake Total 457 ml 470 ml 440 ml 270 ml Output Total 250 ml 300 ml 325 ml 375 ml Balance 207 ml 170 ml 115 ml -105 ml Intake Oral 200 ml 150 ml 100 ml 50 ml IV Total 257 ml 320 ml 340 ml 220 ml Output Urine Total 250 ml 300 ml 325 ml 375 ml # Bowel Movements 1 0 0 Result Diagram: 11/29/16 0320 11/30/16 0540 Imaging Last Impressions Chest X-Ray 11/30/16 0000 Signed Impressions: Service Date/Time: November 03:40 - CONCLUSION: No significant change widespread pulmonary opacities and small bilateral effusions. Bret Truong MD Head CT 11/19/16 0000 Signed Impressions: Service Date/Time: Saturday, November 19, 2016 12:42 - CONCLUSION: 1. Ventricular prominence as described above. This is stable in the interval. 2. There is no other significant interval change. Nahid Cazares MD FACR Liver Ultrasound 11/18/16 0000 Signed Impressions: Service Date/Time: Friday, November 18, 2016 08:04 - CONCLUSION: 1. Small bilateral pleural effusions. 2. Prominent somewhat sonodense liver without intrahepatic biliary ductal dilatation. Nahid Cazares MD FACR Objective Remarks awake oriented x 3,, speech soft and pt is somewhat quiet lungs with decreased breath sounds bilaterally but clear. abdomen- obese, good bowel sounds, nontender left AKA, right LE- with necrotic open wounds, 1+ edema on foot bilateral buttocks and cheeks of buttocks + wounds/decubiti- not evaluated today condom catheter in place, Date of Insertion: Nov 25, 2016 A/P Problem List: (1) Severe sepsis ICD Code: A41.9 Status: Acute (2) PVD (peripheral vascular disease) ICD Code: I73.9 Status: Acute (3) Acute systolic (congestive) heart failure ICD Code: I50.21 Status: Acute (4) GI bleed ICD Code: K92.2 Status: Acute (5) DM (diabetes mellitus) ICD Code: E11.9 Status: Acute (6) Acute respiratory failure ICD Code: J96.00 Status: Acute (7) PAD (peripheral artery disease) ICD Code: I73.9 Status: Chronic (8) Afib ICD Code: I48.91 Status: Chronic (9) Acute metabolic encephalopathy ICD Code: G93.41 Status: Resolved (10) Anemia ICD Code: D64.9 Status: Acute (11) UTI (urinary tract infection) ICD Code: N39.0 Status: Acute Assessment and Plan Depression Chronic pain syndrome History of TIA Monitor neuro status and limit sedatives. 11/19 Ct brain: No acute findings. Continue home medications Neurontin 300 mg 3 times a day for neuropathy Lexapro 10 mg by mouth daily I have adjusted pt's pain regimen.[place]erson/morphine prn Obstructive sleep apnea Chronic type I hypoxic respiratory failure - 2 L nasal cannula History COPD COPD with acute exacerbation. Continue with oxygen keep sat >92%, Continue with bronchodilators scheduled every 6 hours and every 2 hours when necessary dyspnea NIPPV PRN for resp distress. Noted on 2 L nasal cannula chronically home at night 11/28 patient with bilateral expiratory wheezing on 11/27. Patient was started on IV steroids. Continue supplemental oxygen to keep oxygen saturation 89-92% . Exacerbation much improved today. I will transition him to prednisone 40mg po daily and pt will need to do a steroid taper as an outpatient. s/p IV solumedrol Coronary artery disease - heart catheterization 01/24 revealed three-vessel coronary disease unamenable to intervention. Seen by Dr. Montgomery. Signed off Acute systolic heart failure -ejection fraction 35% Hypertension Dyslipidemia Peripheral vascular disease - Chronic atrial fibrillation currently in normal sinus rhythm Monitor HR and BP keep MAP>65mmHg. On Coreg 3.125 mg BID/home medication with holding parameters Echo showed EF 35-40%, mild TR. LV dysfunction. RV dilatation. Which is a change from 55% 01/24, Cards evaluated the patient and had no further recs, no intervention at this time, cards has signed off- Dr. Montgomery. Not on statin due to elevated LFT's which were down but mildly elevated. Monitor as an outpatient On Lipitor 20 mill grams by mouth daily at home amiodarone 200 mg by mouth daily/home medication on hold Seen by Dr. Johansen for right lower extremity wound. Very poor anterior tibial blood flow. Occlusive peroneal/posterior tibial disease. 11/28 Very poor surgical candidate. BPH on Flomax 0.4 mill grams by mouth daily/home medication Currently on Chase catheter in place. Monitor renal function, I/O's, electrolytes replacement per protocol. Renal function is improving, monitor BMP, on Lasix 40mg po daily Gastroesophageal reflux disease Hiatal hernia History of Kuhn's esophagus History of bowel dysmotility and chronic Reglan On mechanical soft heart healthy diet per speech, they will sign off Monitor LFT;s..trending down but mildly elevated, monitor, Hepatitis profile is negative. US liver 11/18: No intrahepatic biliary ductal dilatation. On Reglan 10 mg 4 times a day as needed here in the hospital. Scheduled Reglan at longterm Currently on Pepcid. On Prilosec 20 mg by mouth daily at longterm Polymicrobial right lower extremity wound infection VRE/funguria Proteus pneumonia Continue abx( Zosyn, Diflucan) s/p Zyvox d/rose on 11/27/16. monitor for signs of infections ( Fever, WBC) Wound care, Plastic and vascular surgery are following- due to PVD, will continue with chemical debridement per plastic sx; he is on santyl to his wounds daily. Per vasc sx either needs above-knee amputation or no other procedures Pertinent cultures 11/21/ blood cultures 2 - no growth 11/21 - sputum - negative 11/21 - urine - negative 11/18 - blood cultures 2 - negative 11/18 - sputum - negative 11/17 Sputum cx: Proteus, 11/17 Urine cx: VRE and C. Kreusi 11/17 Wound cx: Proteus, Pseudomonas, Staph Aureus, gram-negative jennifer, enterococcus faecalis and Raffinosus Chronic warfarin Acute blood loss anemia Admission with warfarin toxicity Monitor CBC, Coags, s/p transfusion 2units PRBC, 6u FFP, Vitamin K 10mg x1 on arrival s/p transfusion 1unit PRBC 11/19 Last INR is 1.5. Pt was restarted on coumadin on 11/26/16 w heparin gtt ( bridging) and thus far, Hb stable at 9.1 (11/29). Continue to monitor. d/c heparin gtt and switch to lovenox SQ 100mg BID until INR therapeutic x 24 hrs then d/c GI will not do endoscopy of secondary to cardiac issues. no active GI bleed. Diabetes mellitus SSI with accuchecks Currently on sliding scale insulin Accu-Cheks before meals/at bedtime. 2 units of sliding scale insulin past 24 hours. not on long acting insulin at this time. monitor and adjust insulin regimen as needed GI prophylaxis with Pepcid DVT prophylaxis - lovenox/coumadin. Monitor INR Discharge Planning CM is working w ID for outpatient IV abx. once in place, pt can be discharged to SNF Problem Qualifiers (1) Acute respiratory failure: Qualified Code: J96.00 - Acute respiratory failure, unspecified whether with hypoxia or hypercapnia (2) Anemia: Qualified Code: D64.9 - Anemia, unspecified type (3) UTI (urinary tract infection): Qualified Code: N39.0 - Urinary tract infection without hematuria, site unspecified Nelda Hernandez MD Nov 30, 2016 09:35
[2016-11-30 09:39] LABS: INTERNATIONAL NORMALIZED RATIO 1.3 RATIO; PROTHROMBIN TIME - PATIENT 15.1 SEC (9.8-11.6)
[2016-11-30] MEDS ORDERED: FURO40TA PO (09:42)
[2016-11-30] MEDS ORDERED: COLL30T TOPICAL (09:42)
[2016-11-30] MEDS ORDERED: HYDR-3580 PO (09:42)
[2016-11-30] MEDS ORDERED: PRED20 PO (09:42)
[2016-11-30] MEDS ORDERED: IPRASOL NEB (09:42)
[2016-11-30] MEDS ORDERED: ENOX100P SQ (09:42)
[2016-11-30] MEDS ORDERED: COUM6TAB PO (09:56)
[2016-11-30] MEDS: FLUCONAZOLE 100 MG TAB PO SCH (10:56)
[2016-11-30] MEDS: TAMSULOSIN HCL 0.4 MG CAP PO SCH (10:56)
[2016-11-30] MEDS: GABAPENTIN 300 MG CAP PO SCH ×3 (10:56→17:44)
[2016-11-30] MEDS: FAMOTIDINE 20 MG TAB PO SCH ×2 (10:56→20:37)
[2016-11-30] MEDS: ESCITALOPRAM OXALATE 10 MG TAB PO SCH (10:56)
[2016-11-30] MEDS: ENOXAPARIN SODIUM 100 MG/ML SYRINGE SQ SCH ×2 (10:57→23:00)
[2016-11-30] MEDS: ARTIFICIAL TEARS OPTH SOLN 15 ML BTL EACH EYE SCH ×3 (10:57→17:45)
[2016-11-30] MEDS: POTASSIUM CHLORIDE 20 MEQ CONTROLLED RELEASE TAB PO SCH (10:57)
[2016-11-30] MEDS: FUROSEMIDE 40 MG TAB PO SCH (10:57)
[2016-11-30] MEDS: CARVEDILOL 3.125 MG TAB PO SCH ×2 (11:15→20:37)
[2016-11-30] MEDS: predniSONE 20 MG TAB PO SCH (11:15)
[2016-11-30] MEDS: DOCUSATE SODIUM 50 MG/SENNA 8.6 MG TAB PO SCH ×2 (11:15→20:37)
[2016-11-30] MEDS: ASCORBIC ACID 500 MG TAB PO SCH (11:16)
[2016-11-30] MEDS: COLLAGENASE OINT 30 GM TUBE TOPICAL SCH (12:14)
--- NOTE | 2016-11-30 15:19 | HHI.FF ---
Infusion Therapy Location of Infusion Therapy: [facility] Infusion Therapy Order Patient Information Patient Weight 98 kg Diagnosis: Diagnosis Polymicrobial wound infection Coded Allergies: *MDRO Multi-Drug Resistant Organism (Verified Adverse Reaction, Unknown, MRSA, 11/21/16) MRSA (toe wound) - 01/27/16; (foot) - 05/24/16 MRSA PCR Screen POSITIVE - 05/26/16 VRE (urine)-11/17/16 Administer Medication Piperacillin/Tazobactam 4.5 grams IV q 6 hours Stop Treatment: Dec 08, 2016 Additional Information Venous access: PICC Line Additional Instructions [x] Peripheral flush and dressing changes per protocol [x] Implanted port and central supervisor facepiece line: * Implanted port: 10 ml Normal Saline followed by 5 ml Heparin 100 units/ml Heparin flush after each use and monthly to maintain. [] May leave port accessed during therapy. [] May leave peripheral site accessed for duration of therapy. [x] If patient has SOB or respiratory distress, check oxygen saturation. If less than 90% or clinical signs of respiratory distress, administer oxygen at 2 L/min. via nasal cannula and notify physician. [x] Anaphylaxis/Reaction orders: * Stop infusion. * Keep IV line open with saline flush. * Notify physician. * Monitor vital signs every 15 minutes until symptoms resolve. * Check Oxygen saturation; Oxygen at 2 L/min. via nasal cannula if less than 90% or clinical signs of respiratory distress. * Administer diphenhydramine (Benadryl) 25 mg IV STAT, (unless patient has received as pre-med). May repeat once, if necessary. * Solu-Cortef 250 mg IVP over 30-60 seconds, use 100 mg vials for each dissolution. * Epinephrine (1mg/1 ml) 0.3 mg subcutaneously or IVP now with any signs of respiratory distress. * Check with physician for new additional pre-med orders if patient is re- challenged or re-treated. [x] May remove PICC line when treatment complete, after confirming with Physician. [x] If the patient is admitted to the hospital, the ED, or transferred via [facility] , complete transfer form including medication reconciliation order sheet. Laboratory Tests Weekly Labs: Creatinine, LFT's (Hepatic function test) (Do 12/05) Gogo Patel MD Nov 30, 2016 15:18
[2016-11-30] MEDS ORDERED: ZOSY4.5P IV (15:21)
--- NOTE | 2016-11-30 15:37 | HHI.DS ---
Discharge Summary Admission Date Nov 17, 2016 at 22:59 Discharge Date: Nov 30, 2016 Admitting Diagnosis acute respiratory failure (1) Severe sepsis ICD Code: A41.9 Diagnosis: Principal (2) PVD (peripheral vascular disease) ICD Code: I73.9 Diagnosis: Principal (3) Acute systolic (congestive) heart failure ICD Code: I50.21 Diagnosis: Principal (4) DM (diabetes mellitus) ICD Code: E11.9 Diagnosis: Principal (5) Acute respiratory failure ICD Code: J96.00 Diagnosis: Principal (6) PAD (peripheral artery disease) ICD Code: I73.9 Diagnosis: Principal (7) Afib ICD Code: I48.91 Diagnosis: Principal (8) Acute metabolic encephalopathy ICD Code: G93.41 Diagnosis: Principal (9) Anemia ICD Code: D64.9 Diagnosis: Principal (10) UTI (urinary tract infection) ICD Code: N39.0 Diagnosis: Principal Procedures none Brief History - From Admission 66-year-old male, senior living resident, presents by ambulance because of his oxygen saturation on room air was in the 70s. They put him on a nonrebreather and placed him on CPAP and he was doing better when he started to have decline in his oxygen saturations so they proceeded with giving him Ativan and etomidate and intubating him. They also had given him nitroglycerin prior to this. CBC/BMP: 11/29/16 0320 11/30/16 0540 Significant Findings Laboratory Tests Test 11/27/16 11/28/16 11/29/16 11/30/16 20:25 03:21 03:20 05:40 Activated Partial 57.1 SEC 63.0 SEC 72.7 SEC 68.2 SEC Thromboplast Time (24.3-30.1) (24.3-30.1) (24.3-30.1) (24.3-30.1) Red Blood Count 3.17 MIL/MM3 3.08 MIL/MM3 (4.50-5.90) (4.50-5.90) Hemoglobin 9.2 GM/DL 9.1 GM/DL (13.0-17.0) (13.0-17.0) Hematocrit 28.4 % 27.2 % (39.0-51.0) (39.0-51.0) Neutrophils (%) (Auto) 89.8 % 93.4 % (16.0-70.0) (16.0-70.0) Lymphocytes (%) (Auto) 5.7 % 5.5 % (9.0-44.0) (9.0-44.0) Lymphocytes # (Auto) 0.5 TH/MM3 0.4 TH/MM3 (1.0-4.8) (1.0-4.8) Blood Urea Nitrogen 26 MG/DL (7-18) 34 MG/DL (7-18) 38 MG/DL (7-18) Estimat Glomerular Filtration 59 ML/MIN (>89) 62 ML/MIN (>89) 63 ML/MIN (>89) Rate Random Glucose 181 MG/DL 200 MG/DL 213 MG/DL (74-106) (74-106) (74-106) Aspartate Amino Transf 40 U/L (15-37) 60 U/L (15-37) 64 U/L (15-37) (AST/SGOT) Albumin 2.2 GM/DL 2.3 GM/DL 2.3 GM/DL (3.4-5.0) (3.4-5.0) (3.4-5.0) Alanine Aminotransferase 92 U/L (12-78) 116 U/L (12-78) (ALT/SGPT) Prothrombin Time 15.1 SEC (9.8-11.6) PE at Discharge awake oriented x 3,, speech soft and pt is somewhat quiet lungs with decreased breath sounds bilaterally but clear. abdomen- obese, good bowel sounds, nontender left AKA, right LE- with necrotic open wounds, 1+ edema on foot bilateral buttocks and cheeks of buttocks + wounds/decubiti- not evaluated today condom catheter in place, Hospital Course Obstructive sleep apnea Chronic type I hypoxic respiratory failure - 2 L nasal cannula History COPD COPD with acute exacerbation. Continue with oxygen keep sat >92%, Continue with bronchodilators scheduled every 6 hours and every 2 hours when necessary dyspnea Noted on 2 L nasal cannula chronically home at night s/p IV solu-medrol. now on PO steroid taper. Coronary artery disease - heart catheterization 01/24 revealed three-vessel coronary disease unamenable to intervention. Seen by Dr. Montgomeyr. Signed off Acute systolic heart failure -ejection fraction 35% Hypertension Dyslipidemia Peripheral vascular disease - Chronic atrial fibrillation currently in normal sinus rhythm Monitor HR and BP keep MAP>65mmHg. On Coreg 3.125 mg BID/home medication with holding parameters Echo showed EF 35-40%, mild TR. LV dysfunction. RV dilatation. Which is a change from 55% 01/24, Cards evaluated the patient and had no further recs, no intervention at this time, cards has signed off- Dr. Montgomery. Not on statin due to elevated LFT's which were down but mildly elevated. Monitor as an outpatient and slowly resume lipitor as an outpatient w close monitoring. amiodarone 200 mg by mouth daily/home medication on hold Seen by Dr. Johansen for right lower extremity wound. Very poor anterior tibial blood flow. Occlusive peroneal/posterior tibial disease. Very poor surgical candidate. Gastroesophageal reflux disease Hiatal hernia History of Kuhn's esophagus History of bowel dysmotility and chronic Reglan On mechanical soft heart healthy diet per speech Monitor LFT's trending down but mildly elevated, monitor, Hepatitis profile is negative. US liver 11/18: No intrahepatic biliary ductal dilatation. On Reglan 10 mg 4 times a day as needed here in the hospital. Scheduled Reglan at senior living Currently on Pepcid. On Prilosec 20 mg by mouth daily at senior living Polymicrobial right lower extremity wound infection VRE/funguria Proteus pneumonia Continue abx( Zosyn, Diflucan) s/p Zyvox d/rose on 11/27/16. monitor for signs of infections ( Fever, WBC). Pt will be discharged on IV zosyn Q6hrs until 12/08/16 per ID Wound care, Plastic and vascular surgery are following- due to PVD, will continue with chemical debridement per plastic sx; he is on santyl to his wounds daily. Per vasc sx either needs above-knee amputation or no other procedures Pertinent cultures 11/21/ blood cultures 2 - no growth 11/21 - sputum - negative 11/21 - urine - negative 11/18 - blood cultures 2 - negative 11/18 - sputum - negative 11/17 Sputum cx: Proteus, 11/17 Urine cx: VRE and C. Kreusi 11/17 Wound cx: Proteus, Pseudomonas, Staph Aureus, gram-negative jennifer, enterococcus faecalis and Raffinosus Chronic warfarin Acute blood loss anemia Admission with warfarin toxicity Monitor CBC, Coags, s/p transfusion 2units PRBC, 6u FFP, Vitamin K 10mg x1 on arrival s/p transfusion 1unit PRBC 11/19 Last INR is 1.3. Pt was restarted on coumadin on 11/26/16 w heparin gtt ( bridging) and thus far, Hb stable at 9.1 (11/29). Continue to monitor. d/c heparin gtt and switch to lovenox SQ 100mg BID until INR therapeutic x 24 hrs then d/c GI will not do endoscopy of secondary to cardiac issues. no active GI bleed. Pt Condition on Discharge: Stable Discharge Disposition: Discharge to SNF Discharge Time: > 30 minutes Discharge Instructions Speech Therapy-Diet Recommends: Mechanical Soft, Chopped Meat w/Gravy Follow up Referrals: PCP Follow-up - 1 Week New Orders: COMP MET PROF (CMP) - 1 Week PT/INR - Daily New Medications: Piperacillin-Tazobactam Inj (Zosyn Inj) 4.5 Gm Inj 4.5 GM IV Q6H Infection Days 7 Ref 0 BAG Collagenase (Santyl) 250 Unit/Gm Oin 1 APPLIC TOPICAL DAILY Days 30 TUBE Enoxaparin Inj (Lovenox Inj) 100 Mg/Ml Syr 100 MG SQ Q12H Days 5 INJECTION Furosemide (Furosemide) 40 Mg Tab 40 MG PO DAILY Days 30 TAB Hydrocodone-Acetaminophen (Hydrocodone-Acetaminophen) 7.5-325 mg Tab 1 TAB PO Q4-6H PRN PAIN SCALE 6 TO 10 #30 TAB Ipratropium-Albuterol Neb (Duoneb) 0.5-2.5 Mg/3 Ml Neb 1 AMPULE NEB Q6HR WHILE AWAKE NEB Days 30 ML Prednisone (Prednisone) 20 Mg Tab 40 MG PO DAILY 40mg po daily x 2 days to be started 12/01/16 then 20mg po daily x 2 days then 10 mg po daily x 4 days then stop Days 8 TAB Continued Medications: Ascorbic Acid (Vitamin C) 250 Mg Tab 500 MG PO DAILY Nutritional Supplement Ref 0 TAB Calcium Citrate-Vitamin D (Citracal + D3 Maximum) 315-250 Mg-Unit Tab 1 TAB PO BID Calcium Supplement #100 Ref 0 TAB Carvedilol (Coreg) 3.125 Mg Tab 3.125 MG PO Q12HR HTN #60 Ref 0 TAB Docusate Sodium (Colace Clear) 50 Mg Cap 100 MG PO Escitalopram (Lexapro) 10 Mg Tab 10 MG PO DAILY #30 Ref 0 TAB Gabapentin (Neurontin) 300 Mg Cap 300 MG PO TID Pain Management Days 30 Ref 0 CAP Insulin Detemir Inj (Levemir Flextouch Pen Inj) 300 unit/3 ML Pen 15 UNITS SQ HS Blood Sugar Management Ref 0 PEN Insulin Human Regular Inj (Novolin R Inj) 1,000 Unit/10 Ml Vial 3-15 UNITS SQ DIRECTED Sliding Scale: if 201-250=3 units, 251-300=5 units, 301-350=8 units, 351-400=10 units, 401+=15 units and call Blood Sugar Management #10 Ref 0 ML Metoclopramide (Reglan) 10 Mg Tab 10 MG PO QID #120 Ref 0 TAB Multiple Vitamins W/ Minerals (Multi Vitamin and Mineral) 1 Tab Tab 1 PO DAILY Omeprazole Magnesium (Prilosec) 20 Mg Tab PO DAILY Ondansetron (Zofran) 4 Mg Tab 4 MG IM Q4HR PRN NAUSEA OR VOMITING Ref 0 TAB Potassium Chloride ER (Potassium Chloride ER) 20 Meq Tab 20 MEQ PO DAILY Electrolyte Replacement Days 30 Ref 0 TAB Saline Nasal ([place] Nasal [place]) 0.65% [place] 2 SPRAY EACH NARE Q6HR PRN NASAL CONGESTION #1 Ref 0 BOTTLE Simethicone (Simethicone) 125 Mg Cap 80 MG PO QID PRN GAS RETENTION Ref 0 CAP Tamsulosin (Flomax) 0.4 Mg Cap 0.4 MG PO DAILY urinary retention Days 30 Ref 0 CAP Warfarin (Coumadin) 6 Mg Tab 6 MG PO DAILY Prevent Blood Clot #30 Ref 0 TAB (This prescription has been renewed) Discontinued Medications: Amiodarone (Amiodarone) 200 Mg Tab 200 MG PO DAILY Regulate Heart Beat #30 Ref 0 TAB Atorvastatin (Lipitor) 20 Mg Tab 20 MG PO HS dyslipidemia Days 30 Ref 0 TAB Ciprofloxacin (Cipro) 250 Mg Tab 500 MG PO BID Infection Ref 0 TAB Furosemide (Furosemide) 20 Mg Tab 20 MG PO DAILY diuretic Days 30 Ref 0 TAB Furosemide Inj (Furosemide Inj) 10 Mg/Ml Inj 20 IV PUSH Metoclopramide (Reglan) 10 Mg Tab 10 MG PO QID #120 Ref 0 TAB Nelda Hernandez MD Nov 30, 2016 15:37
--- NOTE | 2016-11-30 15:39 | PD.WCN.NOT ---
Wound Consult Description: Patient seen on 5th floor [facility] [place] for follow up of pressure ulcer to sacrum. Turned patient with assistance of TIEN HERNANDEZ and typewriters functional tester to R side to reveal buttock area with barrier cream in place.Removed some barrier cream gently with normal saline and gauze pad to reveal medial coccyx wound that presents as a stage 2 with partial thickness skin loss. Wound measures ~2 cm x ~ 1cm x ~<0.1cm. Wound has had little change since previous assessment. Periwound presents with diffuse partial thickness skin loss to both R and L buttock that is moisture and friction related. Both R and L buttock presented previously with macerated denuded skin. Left buttock area open to air. Reassessed wound to R heel. R heel is open to air and presents as a stage 3 pressure injury that has improved slightly since previous assessment Wound presents with 100% pale red granulation tissue. Wound measures 3 cm x 2 cm x ~ 0.1cm.Wound is noted with scant sero-sanguinous drainage now. Cleansed wound with normal saline and applied dry 4x4 gauze in place and secured paper tape. Communicated with: Spoke with TIEN HERNANDEZ and Doctor Hernandez for orders Recommendation: Please cleanse buttock area with soap and water gently apply thick layer of Calazime barrier cream over buttock area and stage 2 pressure injury and Leave open to air. Cleanse R heel pressure injury with normal saline or wound cleanser and apply Optifoam AG non adhesive dressing over wound bed and secure with rolled gauze and tape.Please change dressing every other day or PRN if saturated or dislodged. Carey Iyer [facility] Nov 30, 2016 15:39
[2016-11-30] MEDS: RESP: ALBUTEROL 2.5 MG/IPRATROPIUM 0.5 MG NEB (PRN) INH (15:55)
[2016-11-30] MEDS: WARFARIN SOD 5 MG TAB PO SCH (16:10)
[2016-11-30] MEDS: MORPHINE SULFATE 4 MG/ML INJ IV PRN (20:53)
[2016-12-01] VITALS: BP 117/56; PULSE 78; RESP 19; TEMP 98; O2SAT 100
[2016-12-01] MEDS: CHLORHEXIDINE GLUCONATE 2 % 1 PACK (2 CLOTHS) TOP SCH (03:17)
[2016-12-01] MEDS: PIPERACIL-TAZO 4.5 GM PREMIX 100 ML IV SCH ×3 (03:28→13:10)
[2016-12-01 04:00] VITALS: BP 121/65; PULSE 80; RESP 25; TEMP 97.9; O2SAT 93
[2016-12-01] MEDS: RESP: ALBUTEROL 2.5 MG/IPRATROPIUM 0.5 MG NEB (SCH) NEB ×2 (07:57→12:46)
[2016-12-01 08:00] VITALS: BP 126/68; PULSE 78; RESP 27; TEMP 97.8; O2SAT 95
[2016-12-01] MEDS: GABAPENTIN 300 MG CAP PO SCH ×2 (08:01→13:10)
[2016-12-01] MEDS: FAMOTIDINE 20 MG TAB PO SCH (08:01)
[2016-12-01] MEDS: TAMSULOSIN HCL 0.4 MG CAP PO SCH (08:01)
[2016-12-01] MEDS: POTASSIUM CHLORIDE 20 MEQ CONTROLLED RELEASE TAB PO SCH (08:01)
[2016-12-01] MEDS: FLUCONAZOLE 100 MG TAB PO SCH (08:01)
[2016-12-01] MEDS: CARVEDILOL 3.125 MG TAB PO SCH (08:02)
[2016-12-01] MEDS: ACETAMINOPHEN/HYDROcodone 325 MG/5 MG TAB PO PRN (08:02)
[2016-12-01] MEDS: DOCUSATE SODIUM 50 MG/SENNA 8.6 MG TAB PO SCH (08:02)
[2016-12-01] MEDS: ESCITALOPRAM OXALATE 10 MG TAB PO SCH (08:02)
[2016-12-01] MEDS: ASCORBIC ACID 500 MG TAB PO SCH (08:02)
[2016-12-01] MEDS: FUROSEMIDE 40 MG TAB PO SCH (08:02)
[2016-12-01] MEDS: SODIUM CHLORIDE 0.9% FLUSH 10 ML FLUSH SCH (08:03)
[2016-12-01] MEDS: predniSONE 20 MG TAB PO SCH (08:03)
[2016-12-01] MEDS: ARTIFICIAL TEARS OPTH SOLN 15 ML BTL EACH EYE SCH ×2 (08:03→13:11)
[2016-12-01] MEDS: COLLAGENASE OINT 30 GM TUBE TOPICAL SCH (08:04)
[2016-12-01] MEDS: INSULIN ASPART SUPPLEMENTAL SCALE SQ SCH ×2 (08:05→11:03)
[2016-12-01] MEDS: ENOXAPARIN SODIUM 100 MG/ML SYRINGE SQ SCH (11:04)
--- NOTE | 2016-12-01 11:45 | HHI.PR ---
Subjective Remarks Pt feeling well. denies any pain today, denies any CP/SOB/n/v. ate breakfast and tolerated it well discussed w RN, pt had a good night, no events overnight. Pt did get his midline. Objective Vitals Vital Signs Date Time Temp Pulse Resp B/P Pulse Ox O2 Delivery O2 Flow Rate FiO2 12/01/16 08:00 78 12/01/16 08:00 97.8 78 27 126/68 95 12/01/16 04:00 97.9 80 25 121/65 93 12/01/16 00:00 98.0 78 19 117/56 100 11/30/16 20:00 97.8 86 27 142/66 98 11/30/16 19:56 96 Nasal Cannula 3.50 11/30/16 16:00 84 11/30/16 16:00 97.6 89 26 130/61 96 11/30/16 12:00 88 11/30/16 12:00 98.0 88 28 132/68 100 I/O 11/30/16 11/30/16 11/30/16 12/01/16 12/01/16 12/01/16 07:00 15:00 23:00 07:00 15:00 23:00 Intake Total 270 ml 630 ml 695 ml 228 ml Output Total 375 ml 350 ml 250 ml 350 ml Balance -105 ml 280 ml 445 ml -122 ml Intake Oral 50 ml 480 ml 480 ml 100 ml IV Total 220 ml 150 ml 215 ml 128 ml Output Urine Total 375 ml 350 ml 250 ml 350 ml Stool Total 0 ml 0 ml 0 ml # Bowel Movements 0 Result Diagram: 11/29/16 0320 11/30/16 0540 Imaging Last Impressions Chest X-Ray 11/30/16 0000 Signed Impressions: Service Date/Time: November 03:40 - CONCLUSION: No significant change widespread pulmonary opacities and small bilateral effusions. Bret Truong MD Head CT 11/19/16 0000 Signed Impressions: Service Date/Time: Saturday, November 19, 2016 12:42 - CONCLUSION: 1. Ventricular prominence as described above. This is stable in the interval. 2. There is no other significant interval change. Nahid Cazares MD FACR Liver Ultrasound 11/18/16 0000 Signed Impressions: Service Date/Time: Friday, November 18, 2016 08:04 - CONCLUSION: 1. Small bilateral pleural effusions. 2. Prominent somewhat sonodense liver without intrahepatic biliary ductal dilatation. Nahid Cazares MD FACR Objective Remarks speech soft and pt is somewhat quiet however looks comfortable lungs with decreased breath sounds bilaterally but clear. abdomen- obese, good bowel sounds, nontender left AKA, right LE- with necrotic open wounds not examined today, 1+ edema on foot bilateral buttocks and cheeks of buttocks + wounds/decubiti- not evaluated today quiet but pleasant Procedures none Date of Insertion: Nov 25, 2016 A/P Problem List: (1) Severe sepsis ICD Code: A41.9 Status: Acute (2) PVD (peripheral vascular disease) ICD Code: I73.9 Status: Acute (3) Acute systolic (congestive) heart failure ICD Code: I50.21 Status: Acute (4) DM (diabetes mellitus) ICD Code: E11.9 Status: Acute (5) Acute respiratory failure ICD Code: J96.00 Status: Acute (6) PAD (peripheral artery disease) ICD Code: I73.9 Status: Chronic (7) Afib ICD Code: I48.91 Status: Chronic (8) Acute metabolic encephalopathy ICD Code: G93.41 Status: Resolved (9) Anemia ICD Code: D64.9 Status: Acute (10) UTI (urinary tract infection) ICD Code: N39.0 Status: Acute Assessment and Plan update to management 12/01/16: no change to management. pt doing well. ok to d/c to SNF today Obstructive sleep apnea Chronic type I hypoxic respiratory failure - 2 L nasal cannula History COPD COPD with acute exacerbation. Continue with oxygen keep sat >92%, Continue with bronchodilators scheduled every 6 hours and every 2 hours when necessary dyspnea Noted on 2 L nasal cannula chronically home at night s/p IV solu-medrol. now on PO steroid taper. Coronary artery disease - heart catheterization 01/24 revealed three-vessel coronary disease unamenable to intervention. Seen by Dr. Montgomery. Signed off Acute systolic heart failure -ejection fraction 35% Hypertension Dyslipidemia Peripheral vascular disease - Chronic atrial fibrillation currently in normal sinus rhythm Monitor HR and BP keep MAP>65mmHg. On Coreg 3.125 mg BID/home medication with holding parameters Echo showed EF 35-40%, mild TR. LV dysfunction. RV dilatation. Which is a change from 55% 01/24, Cards evaluated the patient and had no further recs, no intervention at this time, cards has signed off- Dr. Montgomery. Not on statin due to elevated LFT's which were down but mildly elevated. Monitor as an outpatient and slowly resume lipitor as an outpatient w close monitoring. amiodarone 200 mg by mouth daily/home medication on hold Seen by Dr. Johansen for right lower extremity wound. Very poor anterior tibial blood flow. Occlusive peroneal/posterior tibial disease. Very poor surgical candidate. Gastroesophageal reflux disease Hiatal hernia History of Kuhn's esophagus History of bowel dysmotility and chronic Reglan On mechanical soft heart healthy diet per speech Monitor LFT's trending down but mildly elevated, monitor, Hepatitis profile is negative. US liver 11/18: No intrahepatic biliary ductal dilatation. On Reglan 10 mg 4 times a day as needed here in the hospital. Scheduled Reglan at [facility] Currently on Pepcid. On Prilosec 20 mg by mouth daily at [facility] Polymicrobial right lower extremity wound infection VRE/funguria Proteus pneumonia Continue abx( Zosyn, Diflucan) s/p Zyvox d/rose on 11/27/16. monitor for signs of infections ( Fever, WBC). Pt will be discharged on IV zosyn Q6hrs until 12/08/16 per ID Wound care, Plastic and vascular surgery are following- due to PVD, will continue with chemical debridement per plastic sx; he is on santyl to his wounds daily. Per vasc sx either needs above-knee amputation or no other procedures Pertinent cultures 11/21/ blood cultures 2 - no growth 11/21 - sputum - negative 11/21 - urine - negative 11/18 - blood cultures 2 - negative 11/18 - sputum - negative 11/17 Sputum cx: Proteus, 11/17 Urine cx: VRE and C. Kreusi 11/17 Wound cx: Proteus, Pseudomonas, Staph Aureus, gram-negative jennifer, enterococcus faecalis and Raffinosus Chronic warfarin Acute blood loss anemia Admission with warfarin toxicity Monitor CBC, Coags, s/p transfusion 2units PRBC, 6u FFP, Vitamin K 10mg x1 on arrival s/p transfusion 1unit PRBC 11/19 Last INR is 1.3. Pt was restarted on coumadin on 11/26/16 w heparin gtt ( bridging) and thus far, Hb stable at 9.1 (11/29). Continue to monitor. d/c heparin gtt and switch to lovenox SQ 100mg BID until INR therapeutic x 24 hrs then d/c GI will not do endoscopy of secondary to cardiac issues. no active GI bleed. Discharge Planning ok to discharge to SNF today Problem Qualifiers (1) Acute respiratory failure: Qualified Code: J96.00 - Acute respiratory failure, unspecified whether with hypoxia or hypercapnia (2) Anemia: Qualified Code: D64.9 - Anemia, unspecified type (3) UTI (urinary tract infection): Qualified Code: N39.0 - Urinary tract infection without hematuria, site unspecified Nelda Hernandez MD Dec 01, 2016 11:45
[2016-12-01 12:00] VITALS: BP 126/68; PULSE 78; RESP 27; TEMP 97.8; O2SAT 95
== END 2016-12-01 14:30 | DRG 871 ==
LOC: NEPC 21:50 → NEDA 22:59 → HIMW 11-18 02:21 → HCIS 11-25 12:23 → HIMW 11-25 16:16 → HIMN 11-29 14:55
PROVIDERS: ADMIT Hospitalist; ATTEND Hospitalist
PROC: 5A1945Z Respiratory Ventilation, 24-96 Consecutive Hours (ICD-10-PCS; principal; 2016-11-17)
PROC: 30233K1 Transfusion of Nonautologous Frozen Plasma into Peripheral Vein, Percutaneous Approach (ICD-10-PCS; 2016-11-17)
PROC: 30233N1 Transfusion of Nonautologous Red Blood Cells into Peripheral Vein, Percutaneous Approach (ICD-10-PCS; 2016-11-17)
DX: A41.9 Sepsis, unspecified organism (principal); J96.21 Acute and chronic respiratory failure with hypoxia; L89.894 Pressure ulcer of other site, stage 4; I50.21 Acute systolic (congestive) heart failure; G93.41 Metabolic encephalopathy; J15.6 Pneumonia due to other Gram-negative bacteria; D68.9 Coagulation defect, unspecified; I11.0 Hypertensive heart disease with heart failure; E46 Unspecified protein-calorie malnutrition; J44.0 Chronic obstructive pulmonary disease with (acute) lower respiratory infection; I42.9 Cardiomyopathy, unspecified; N39.0 Urinary tract infection, site not specified; L97.419 Non-pressure chronic ulcer of right heel and midfoot with unspecified severity; D62 Acute posthemorrhagic anemia; K92.2 Gastrointestinal hemorrhage, unspecified; J44.1 Chronic obstructive pulmonary disease with (acute) exacerbation; E11.40 Type 2 diabetes mellitus with diabetic neuropathy, unspecified; I48.2 Chronic atrial fibrillation; D63.8 Anemia in other chronic diseases classified elsewhere; I25.10 Atherosclerotic heart disease of native coronary artery without angina pectoris; I73.9 Peripheral vascular disease, unspecified; E11.622 Type 2 diabetes mellitus with other skin ulcer; E78.5 Hyperlipidemia, unspecified; K21.9 Gastro-esophageal reflux disease without esophagitis; E11.621 Type 2 diabetes mellitus with foot ulcer; G89.4 Chronic pain syndrome; G47.33 Obstructive sleep apnea (adult) (pediatric); K44.9 Diaphragmatic hernia without obstruction or gangrene; N40.0 Benign prostatic hyperplasia without lower urinary tract symptoms; K30 Functional dyspepsia; H91.90 Unspecified hearing loss, unspecified ear; R65.20 Severe sepsis without septic shock; L89.329 Pressure ulcer of left buttock, unspecified stage; L89.319 Pressure ulcer of right buttock, unspecified stage; I07.1 Rheumatic tricuspid insufficiency; F32.9 Major depressive disorder, single episode, unspecified; T45.511A Poisoning by anticoagulants, accidental (unintentional), initial encounter; Y95 Nosocomial condition; Z16.24 Resistance to multiple antibiotics; Z74.01 Bed confinement status; Z79.01 Long term (current) use of anticoagulants; Z79.4 Long term (current) use of insulin; Z86.14 Personal history of Methicillin resistant Staphylococcus aureus infection; Z86.73 Personal history of transient ischemic attack (TIA), and cerebral infarction without residual deficits; Z89.612 Acquired absence of left leg above knee; Z99.3 Dependence on wheelchair
CPT/HCPCS: 36430; 36569; 36600; 51702; 70450; 71010; 76705; 76937; 80048; 80053; 80074; 81001; 82140; 82272; 82550; 82552; 82805; 82948; 83605; 83735; 83880; 84100; 84484; 85007; 85014; 85018; 85025; 85027; 85610; 85730; 86403; 86850; 86900; 86901; 86920; 86922; 86927; 87040; 87070; 87077; 87086; 87106; 87147; 87186; 87205; 87493; 87641; 87804; 93005; 93306; 94002; 94003; 94150; 94640; 94664; 96374; J0456; J0692; J0696; J1120; J1644; J1650; J1815; J1940; J2250; J2270; J2543; J2920; J3430; J7030; J7050; J7512; P9016; P9017

== ENCOUNTER 2017-01-29 09:49 | Inpatient (IN) | payer MEDICARE, OTHER ==
[2017-01-29] VITALS (13 sets, daily range): BP systolic 85–136; BP diastolic 51–72; PULSE 77–102; RESP 12–32; TEMP 97.4–100.2; O2SAT 95–100
[~2017-01-29] VITALS: Ht 182.9 cm; Wt 85.0 kg
[~2017-01-29 09:49] MED LIST changes: -AMIO200T PO; -CIPR250T52 PO; +COLL30T TOPICAL; +ENOX100P SQ; -FURO10IN IV PUSH; -FURO20TA PO; +FURO40TA PO; +HYDR-3580 PO; +IPRASOL NEB; -LIPI20TA PO; +PRED20 PO; +ZOSY4.5P IV
[2017-01-29] MEDS ORDERED: SODIUM CHLORIDE 0.9% FLUSH 10 ML FLUSH IVF PRN (10:15)
[2017-01-29 10:40] LABS: AUTOMATED NEUTROPHIL # 13.8 TH/MM3 (1.8-7.7); BASOPHIL % 0.3 % (0.0-2.0); HEMATOCRIT 27.1 % (39.0-51.0); HEMO FLAGS DIFF FINAL; LYMPH % 4.3 % (9.0-44.0); LYMPHOCYTE # 0.6 TH/MM3 (1.0-4.8); MEAN CELL VOLUME 97.9 FL (80.0-100.0); MEAN CORPUSCULAR HEMOGLOBIN 30.5 PG (27.0-34.0); MEAN CORPUSCULAR HGB CONC 31.1 % (32.0-36.0); MONO % 3.8 % (0.0-8.0); NEUT % 91.6 % (16.0-70.0); PLATELET COUNT 212 TH/MM3 (150-450); RED BLOOD COUNT 2.77 MIL/MM3 (4.50-5.90); RED CELL DISTRIBUTION WIDTH 17.7 % (11.6-17.2); WHITE BLOOD COUNT 15.1 TH/MM3 (4.0-11.0)
[2017-01-29 10:52] LABS: INTERNATIONAL NORMALIZED RATIO 4.1 RATIO; PROTHROMBIN TIME - PATIENT 48.7 SEC (9.8-11.6)
[2017-01-29 10:55] LABS: ALT (GPT) 48 U/L (12-78); ANION GAP 4 MEQ/L (5-15); AST (GOT) 50 U/L (15-37); BICARBONATE 36.6 MEQ/L (21.0-32.0); BLOOD UREA NITROGEN 22 MG/DL (7-18); CHLORIDE 97 MEQ/L (98-107); GLOMERULAR FILTRATION RATE 63 ML/MIN (>89); POTASSIUM 5.1 MEQ/L (3.5-5.1); SODIUM (NA) 138 MEQ/L (136-145)
--- NOTE | 2017-01-29 10:59 | RADRPT ---
EXAM DATE/TIME: 01/29/2017 10:38 [place] COMPARISON: CHEST SINGLE AP, November 30, 2016, 3:40. INDICATIONS : Shortness of breath. MEDICAL HISTORY : Cardiovascular disease. Chronic obstructive pulmonary disease. Diabetes SURGICAL HISTORY : None. ENCOUNTER: Initial ACUITY: 1 day PAIN SCORE: Non-responsive. LOCATION: Bilateral chest FINDINGS: A single portable frontal view of the chest shows cardiomegaly. A large left and small right pleural effusion. Diffuse bilateral intra-alveolar infiltrates. Pulmonary vascular structures obscured and po yang evaluated. A degenerative spine. CONCLUSION: Cardiomegaly with intra-alveolar pulmonary edema and bilateral pleural effusions. Juvenal aJrquin Jr., MD on January 29, 2017 at 10:57 Board Certified Radiologist. This report was verified electronically.
[2017-01-29] MEDS ORDERED: SUCCINYLCHOLINE CHLORIDE 200 MG/10 ML VIAL IV PUSH ONE (11:00)
[2017-01-29] MEDS ORDERED: ETOMIDATE 20 MG/10 ML VIAL IV PUSH ONE (11:00)
[2017-01-29] MEDS ORDERED: PROPOFOL 1000 MG/100 ML INJ 100 ML IV PRN (11:00)
[2017-01-29 11:01] LABS: ALKALINE PHOSPHATASE 84 U/L (45-117); APTT (PATIENT) 41.8 SEC (24.3-30.1); CREATINE KINASE 162 U/L (39-308); TOTAL BILIRUBIN ADULT 0.8 MG/DL (0.2-1.0)
[2017-01-29 11:14] LABS: CKMB 18.6 NG/ML (0.5-3.6)
--- NOTE | 2017-01-29 11:33 | PD ---
HPI Chief Complaint: Respiratory Distress Time Seen by Provider: 10:07 Travel History International Travel<30 days: No Contact w/Intl Traveler<30days: No Traveled to known affect area: No History of Present Illness HPI This is a 66-year-old male with history of hypertension, diabetes mellitus, COPD , CHF, presents here today with platelets of shortness of breath. The patient reports the shortness of breath started to progressively get worse this morning. The patient is very short of breath and has minimal fragmented speech. PFSH Past Medical History Hx Anticoagulant Therapy: Yes (COUMADIN) Asthma: No Atrial Fibrillation: Yes Blood Disorders: Yes Anxiety: No Depression: Yes Heart Rhythm Problems: Yes (AFIB) Cancer: No Cardiovascular Problems: Yes (CHF,PVD,HTN,A.FIB,) Chemotherapy: No COPD: Yes Diabetes: Yes Diminished Hearing: Yes ([employer] [place] [employer] [place]) Endocrine: Yes Gastrointestinal Disorders: No Genitourinary: No Hypertension: Yes Immune Disorder: No Implanted Vascular Access Dvce: No Musculoskeletal: No Neurologic: Yes Psychiatric: Yes Reproductive: No Respiratory: Yes (COPD, CHF, Pulmonary Edema) Pneumonia: Yes Radiation Therapy: No Sleep Apnea: No Thyroid Disease: No ?: Not Past Surgical History Abdominal Surgery: Yes (GALLBLADDER) Cholecystectomy: Yes Pacemaker: No Tonsillectomy: Yes Other Surgery: Yes Social History Alcohol Use: No Tobacco Use: No (quit 8 months) Substance Use: No Allergies-Medications (Allergen,Severity, Reaction): Coded Allergies: *MDRO Multi-Drug Resistant Organism (Verified Adverse Reaction, Unknown, MRSA, 01/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) MRSA (toe wound) - 01/27/16; (foot) - 05/24/16 MRSA PCR Screen POSITIVE - 05/26/16 VRE (urine)-11/17/16 Reported Meds & Prescriptions Reported Meds & Active Scripts Active Zosyn Inj (Piperacillin Sod/Tazobactam Sod) 4.5 Gm Inj 4.5 Gm IV Q6H 7 Days Coumadin (Warfarin) 6 Mg Tab 6 Mg PO DAILY Prednisone 20 Mg Tab 40 Mg PO DAILY 8 Days 40mg po daily x 2 days to be started 12/01/16 then 20mg po daily x 2 days then 10 mg po daily x 4 days then stop Duoneb (Ipratropium-Albuterol Neb) 0.5-2.5 Mg/3 Ml Neb 1 Ampule NEB Q6HR WHILE AWAKE NEB 30 Days Hydrocodone-Acetaminophen 7.5-325 mg Tab 1 Tab PO Q4-6H PRN Furosemide 40 Mg Tab 40 Mg PO DAILY 30 Days Lovenox Inj (Enoxaparin Sodium) 100 Mg/Ml Syr 100 Mg SQ Q12H 5 Days Santyl (Collagenase) 250 Unit/Gm Oin 1 Applic TOPICAL DAILY 30 Days Citracal + D3 Maximum (Calcium Citrate-Vitamin D) 315-250 Mg-Unit Tab 1 Tab PO BID Potassium Chloride ER (Potassium Chloride) 20 Meq Tab 20 Meq PO DAILY 30 Days Flomax (Tamsulosin HCl) 0.4 Mg Cap 0.4 Mg PO DAILY 30 Days Neurontin (Gabapentin) 300 Mg Cap 300 Mg PO TID 30 Days Reported Simethicone 125 Mg Cap 80 Mg PO QID PRN Vitamin C (Ascorbic Acid) 250 Mg Tab 500 Mg PO DAILY Prilosec (Omeprazole Magnesium) 20 Mg Tab PO DAILY Multi Vitamin and Mineral (Multiple Vitamins W/ Minerals) 1 Tab Tab 1 PO DAILY Colace Clear (Docusate Sodium) 50 Mg Cap 100 Mg PO Zofran (Ondansetron HCl) 4 Mg Tab 4 Mg IM Q4HR PRN Reglan (Metoclopramide HCl) 10 Mg Tab 10 Mg PO QID Conde Nasal [place] (Sodium Chloride) 0.65% [place] 2 [place] EACH NARE Q6HR PRN Novolin R Inj (Insulin Human Regular) 1,000 Unit/10 Ml Vial 3-15 Units SQ DIRECTED Sliding Scale: if 201-250=3 units, 251-300=5 units, 301-350=8 units, 351-400=10 units, 401+=15 units and call MD Turkaprizaiah (Escitalopram Oxalate) 10 Mg Tab 10 Mg PO DAILY Levemir Flextouch Pen Inj (Insulin Detemir) 300 unit/3 ML Pen 15 Units SQ HS Coreg (Carvedilol) 3.125 Mg Tab 3.125 Mg PO Q12HR Review of Systems ROS Limitations: Clinical Condition Except as stated in HPI: all other systems reviewed are Neg General / Constitutional: No: Fever Eyes: No: Diploplia HENT: No: Headaches, Neck Pain Cardiovascular: No: Chest Pain or Discomfort, Palpitations Respiratory: Positive: Shortness of Breath, Wheezing, No: Cough Gastrointestinal: No: Nausea, Vomiting, Abdominal Pain Musculoskeletal: Positive: Weakness (generalized), No: Pain Neurologic: Positive: Weakness, Sensory Disturbance (secondary to diabetes), No : Headache Physical Exam Narrative GENERAL: Developed well-nourished male in moderate to severe respiratory discomfort. SKIN: Focused skin assessment warm/dry. HEAD: Atraumatic. Normocephalic. EYES: No scleral icterus. No injection or drainage. ENT: No nasal bleeding or discharge. Mucous membranes pale and dry. NECK: Trachea midline. Supple CARDIOVASCULAR: Tachycardic with a rate in the low 100s. 104 on my examination.. No murmur appreciated. RESPIRATORY: No accessory muscle use. Clear to auscultation. Breath sounds equal bilaterally. GASTROINTESTINAL: Abdomen soft, non-tender, nondistended. Hepatic and splenic margins not palpable. MUSCULOSKELETAL: Previous left AKA. Patient's right heel has a healing pressure ulcer stage III. NEUROLOGICAL: Awake and alert. No obvious cranial nerve deficits. Motor grossly within normal limits. Fragmented speech secondary to respiratory distress. Data Data Last Documented VS Vital Signs Date Time Temp Pulse Resp B/P (MAP) Pulse Ox O2 Delivery O2 Flow Rate FiO2 01/29/17 11:50 50 01/29/17 11:34 90 16 136/72 (93) 100 Auto-Vent 01/29/17 10:34 15.00 01/29/17 09:55 97.4 Orders Orders Complete Blood Count With Diff (01/29/17 10:07) Comprehensive Metabolic Panel (01/29/17 10:07) B-Type Natriuretic Peptide (01/29/17 10:07) Act Partial Throm Time (Ptt) (01/29/17 10:07) Ckmb (Isoenzyme) Profile (01/29/17 10:07) Troponin I (01/29/17 10:07) Arterial Blood Gas (Abg) (01/29/17 10:07) Iv Access Insert/Monitor (01/29/17 10:07) Ecg Monitoring (01/29/17 10:07) Oximetry (01/29/17 10:07) Oxygen Administration (01/29/17 10:07) Chest, Single Ap (01/29/17 10:07) Sodium Chloride 0.9% Flush (Ns Flush) (01/29/17 10:15) Prothrombin Time / Inr (Pt) (01/29/17 10:13) Etomidate Inj (Amidate Inj) (01/29/17 11:00) Succinylcholine Inj (Quelicin Inj) (01/29/17 11:00) Propofol 1000 Mg/100 Ml Inj (Diprivan 10 (01/29/17 11:00) ^ Infusion (01/29/17 10:59) RASS (01/29/17 10:59) Neurological Rass Scale SKY.Q2H (01/29/17 10:59) CKMB (01/29/17 10:00) CKMB% (01/29/17 10:00) Electrocardiogram (01/29/17 ) Chest, Single Ap (01/29/17 11:27) Type And Screen (01/29/17 11:34) Troponin I (01/29/17 16:00) Troponin I (01/29/17 22:00) Troponin I (01/30/17 04:00) Troponin I (01/30/17 10:00) Bumetanide Inj (Bumex Inj) (01/29/17 12:00) Acetazolamide Inj (Diamox Inj) (01/29/17 12:00) Magnesium Oxide (Mag-Ox) (01/29/17 12:00) Magnesium Sulfate Inj (Magnesium Sulfate (01/29/17 12:00) Magnesium Sulfate Inj (Magnesium Sulfate (01/29/17 12:00) Potassium Chlor 20 Meq Premix (Kcl 20 Me (01/29/17 12:00) Potassium Chlor 20 Meq Premix (Kcl 20 Me (01/29/17 12:00) Potassium Chlor 40 Meq Premix (Kcl 40 Me (01/29/17 12:00) Potassium Chlor 40 Meq Premix (Kcl 40 Me (01/29/17 12:00) Potassium Phosphate (K-Phos) (01/29/17 12:00) Potassium Phosphate (K-Phos) (01/29/17 12:00) Potassium Phosphate Inj (Potassium Phosp (01/29/17 12:00) Sodium Phosphate Inj (Sodium Phosphate I (01/29/17 12:00) ^ Medication Admin Instruction (01/29/17 11:53) Notify Dr: Other (01/29/17 11:53) Chlorhexidine 0.12% Liq (Peridex 0.12% L (01/29/17 20:00) Resp Ventilation- Volume (01/29/17 ) Ventilator Weaning Readiness SKY.DAILY@0800 (01/29/17 11:53) Elevate Head Of Bed (01/29/17 11:53) Inpatient Certification (01/29/17 11:53) Cbc No Diff, Includes Plts (01/30/17 05:00) Cbc No Diff, Includes Plts (01/31/17 05:00) Cbc No Diff, Includes Plts (02/01/17 05:00) Cbc No Diff, Includes Plts (02/02/17 05:00) Cbc No Diff, Includes Plts (02/03/17 05:00) Cbc No Diff, Includes Plts (02/04/17 05:00) Cbc No Diff, Includes Plts (02/05/17 05:00) Basic Metabolic Panel (Bmp) (01/30/17 05:00) Basic Metabolic Panel (Bmp) (01/31/17 05:00) Basic Metabolic Panel (Bmp) (02/01/17 05:00) Basic Metabolic Panel (Bmp) (02/02/17 05:00) Basic Metabolic Panel (Bmp) (02/03/17 05:00) Basic Metabolic Panel (Bmp) (02/04/17 05:00) Basic Metabolic Panel (Bmp) (02/05/17 05:00) Restraints Non-Violent SKY.Q3H (01/29/17 11:53) Neurological Rass Scale SKY.Q2H (01/29/17 11:53) Propofol 1000 Mg/100 Ml Inj (Diprivan 10 (01/29/17 12:00) RASS (01/29/17 11:53) ^ Infusion (01/29/17 11:53) Fentanyl Drip (Fentanyl Drip) (01/29/17 12:00) Neurological Rass Scale Q30MX2,Q2HX4,Q4H (01/29/17 11:53) Bedside Glucose SKY.Q4H (01/29/17 11:53) Blood Glucose Goal (Criteria) (01/29/17 11:53) Hypoglycemia 51 - 69 Mg/Dl (01/29/17 11:53) Hypoglycemia 50 Mg/Dl Or < (01/29/17 11:53) Notify Dr: Other (01/29/17 11:53) Dextrose 50% In Yordan (Vial) Inj (D50w (Vi (01/29/17 12:00) Insulin Human Reg Supp Scale (Novolin R (01/29/17 12:00) Albuterol-Ipratropium Neb (Duoneb Neb) (01/29/17 16:00) Albuterol-Ipratropium Neb (Duoneb Neb) (01/29/17 12:00) Arterial Blood Gas (Abg) (01/30/17 06:00) Chest, Single Ap (01/30/17 06:00) Urinary Catheter Management SKY.Q1H (01/29/17 11:53) Code Status (01/29/17 11:53) Vital Signs (Adult) SKY.Q1H (01/29/17 11:53) Activity Bed Rest (01/29/17 11:53) Elevate Head Of Bed (01/29/17 11:53) Neuro Checks . ORDERED (01/29/17 11:53) ^ Orogastric Tube (01/29/17 11:53) Diet Npo (01/29/17 Lunch) Acetaminophen (Tylenol) (01/29/17 12:00) Morphine Inj (Morphine Inj) (01/29/17 12:00) Pantoprazole Inj (Protonix Inj) (01/30/17 09:00) Ondansetron Inj (Zofran Inj) (01/29/17 12:00) Director Case Management / Telemetry SKY.Q8H (01/29/17 11:53) Scd Bilateral/Knee High SKY.BID (01/29/17 11:53) ^ Initiate Protocol (01/29/17 11:53) Instruction (01/29/17 11:53) [facility] Nursing Information (01/29/17 12:00) Chlorhexidine 2% Cloth (Chlorhexidine 2% (01/30/17 04:00) Chlorhexidine 2% Cloth (Chlorhexidine 2% (01/29/17 12:00) Mrsa Pcr Surveillance (01/29/17 11:53) Docusate Sodium-Senna (Grace-Colace) (01/29/17 21:00) Coag Profile (01/30/17 06:00) Coag Profile (01/31/17 06:00) Coag Profile (02/01/17 06:00) Coag Profile (02/02/17 06:00) Coag Profile (02/03/17 06:00) Coag Profile (02/04/17 06:00) Coag Profile (02/05/17 06:00) Admit Order (Ed Use Only) (01/29/17 12:18) Labs Laboratory Tests Test 01/29/17 10:00 01/29/17 10:05 White Blood Count 15.1 TH/MM3 Red Blood Count 2.77 MIL/MM3 Hemoglobin 8.4 GM/DL Hematocrit 27.1 % Mean Corpuscular Volume 97.9 FL Mean Corpuscular Hemoglobin 30.5 PG Mean Corpuscular Hemoglobin Concent 31.1 % Red Cell Distribution Width 17.7 % Platelet Count 212 TH/MM3 Mean Platelet Volume 7.7 FL Neutrophils (%) (Auto) 91.6 % Lymphocytes (%) (Auto) 4.3 % Monocytes (%) (Auto) 3.8 % Eosinophils (%) (Auto) 0.0 % Basophils (%) (Auto) 0.3 % Neutrophils # (Auto) 13.8 TH/MM3 Lymphocytes # (Auto) 0.6 TH/MM3 Monocytes # (Auto) 0.6 TH/MM3 Eosinophils # (Auto) 0.0 TH/MM3 Basophils # (Auto) 0.0 TH/MM3 CBC Comment DIFF FINAL Differential Comment Prothrombin Time 48.7 SEC Prothromb Time International Ratio 4.1 RATIO Activated Partial Thromboplast Time 41.8 SEC Blood Urea Nitrogen 22 MG/DL Creatinine 1.16 MG/DL Random Glucose 163 MG/DL Total Protein 7.7 GM/DL Albumin 2.4 GM/DL Calcium Level 8.8 MG/DL Alkaline Phosphatase 84 U/L Aspartate Amino Transf (AST/SGOT) 50 U/L Alanine Aminotransferase (ALT/SGPT) 48 U/L Total Bilirubin 0.8 MG/DL Sodium Level 138 MEQ/L Potassium Level 5.1 MEQ/L Chloride Level 97 MEQ/L Carbon Dioxide Level 36.6 MEQ/L Anion Gap 4 MEQ/L Estimat Glomerular Filtration Rate 63 ML/MIN Total Creatine Kinase 162 U/L Creatine Kinase MB 18.6 NG/ML Troponin I 0.08 NG/ML B-Type Natriuretic Peptide 1928 PG/ML Blood Gas Puncture Site LT RADIAL Blood Gas Patient Temperature 98.6 Blood Gas HCO3 34 mmol/L Blood Gas Base Excess 8.4 mmol/L Blood Gas Oxygen Saturation 41 % Arterial Blood pH 7.36 Arterial Blood Partial Pressure CO2 61 mmHg Arterial Blood Partial Pressure O2 24 mmHG Arterial Blood Oxygen Content 5.0 Vol % Arterial Blood Carboxyhemoglobin 2.1 % Arterial Blood Methemoglobin 0.4 % Blood Gas Hemoglobin 8.7 G/DL Oxygen Delivery Device PRB Blood Gas Liter Flow 15 L/M MDM Medical Decision Making Medical Screen Exam Complete: Yes Emergency Medical Condition: Yes Differential Diagnosis CHF versus COPD versus ACS versus dehydration versus anemia Narrative Course 66-year-old male with history of CHF, COPD, diabetes mellitus, hypertension, hyperlipidemia, presents here today with shortness of breath and the patient reports progressive over the last several days. States her last 24 hours is become severe. The patient was severely tachypnea. Chest x-ray showed diffuse pulmonary edema. Discussion with the patient was made with the recommendation that we electively intubated as I did not feel he would be able to sustain his respiratory rate for much longer. He acknowledged and agreed. The patient will be admitted to the intensive care unit. Case was discussed with Dr. Michael Cat, contract graphic designer. He's been given Lasix. He is currently on the ventilator. Critical Care Narrative Aggregate critical care time was 60 minutes. Time to perform other separately billable procedures was not included in the critical care time. My time did not include minutes spent treating any other patients simultaneously or on activities that did not directly contribute to the patient's treatment. The services I provided to this patient were to treat and/or prevent clinically significant deterioration that could result in: I provided critical care services requiring my management, as noted below: Chart data review, documentation time, medication orders and management, vital sign assessments/reviewing monitor data, ordering and reviewing lab tests, ordering and interpreting/reviewing x-rays and diagnostic studies, care of the patient and discussion of the patient with the admitting physicians. Procedures Procedure Narrative After the risks and benefits were discussed the following procedure was performed: INTUBATION: The patient was put in optimal position for the procedure. Using the [facility], rapid sequence intubation was initiated by me using 20 milligrams of etomidate IV and 100 milligrams of no: IV. The patient was intubated with a 8.0 cuffed endotracheal tube. Tube placement was confirmed by visualization of the tube and balloon passing through the cords, capnometry and subsequent chest x-ray. Breath sounds were equal and well aerated bilaterally postintubation. No breath sounds over stomach. Patient tolerated procedure well. Diagnosis Primary Impression: Acute respiratory failure Additional Impressions: CHF (congestive heart failure) Anticoagulated by anticoagulation treatment Diabetic foot ulcers Anemia PAD (peripheral artery disease) CAD (coronary artery disease) Elevated troponin I level Admitting Information Admitting Physician Requests: Admit Gregg Wilson MD Jan 29, 2017 11:33
[2017-01-29] MEDS ORDERED: MAGNESIUM SULFATE INJ 4 GM in SODIUM CHLORIDE 0.9% INJ 92 ML IV PRN (12:00)
[2017-01-29] MEDS ORDERED: CHLORHEXIDINE GLUCONATE 2 % 1 PACK (2 CLOTHS) TOP PRN (12:00)
[2017-01-29] MEDS ORDERED: POTASSIUM CHLOR 40 MEQ PREMIX 100 ML IV PRN ×2 (12:00)
[2017-01-29] MEDS ORDERED: PROPOFOL 1000 MG/100 ML INJ 100 ML IV SCH (12:00)
[2017-01-29] MEDS ORDERED: POTASSIUM PHOSPHATE MONOBASIC 500 MG TAB PO/TUBE PRN (12:00)
[2017-01-29] MEDS ORDERED: MISCELLANEOUS NURSING INFORMATION XX SCH (12:00)
[2017-01-29] MEDS ORDERED: DEXTROSE 50% IN WATER 50 ML VIAL(D50) IV PUSH PRN (12:00)
[2017-01-29] MEDS ORDERED: POTASSIUM PHOSPHATE MONOBASIC 500 MG TAB PO PRN (12:00)
[2017-01-29] MEDS ORDERED: MAGNESIUM OXIDE 400 MG TAB PO PRN (12:00)
[2017-01-29] MEDS ORDERED: BUMETANIDE INJ 1 MG/4 ML VIAL IV PUSH ONE ×2 (12:00→20:15)
[2017-01-29] MEDS ORDERED: ACETAMINOPHEN 325 MG TAB PO PRN (12:00)
[2017-01-29] MEDS ORDERED: MORPHINE SULFATE 4 MG/ML INJ IV PRN (12:00)
[2017-01-29] MEDS ORDERED: ONDANSETRON HCL 4 MG/2 ML VIAL IV PRN (12:00)
[2017-01-29] MEDS ORDERED: SODIUM PHOSPHATE INJ 30 MMOL in SODIUM CHLOR 0.9% 250 ML INJ 240 ML IV PRN (12:00)
[2017-01-29] MEDS ORDERED: POTASSIUM PHOSPHATE INJ 30 MMOL in SODIUM CHLOR 0.9% 250 ML INJ 250 ML IV PRN (12:00)
[2017-01-29] MEDS ORDERED: MAGNESIUM SULFATE INJ 2 GM in SODIUM CHLORIDE 0.9% INJ 96 ML IV PRN (12:00)
[2017-01-29 12:03] LABS: BLOOD GAS BASE EXCESS 8.4 mmol/L (-2-2); BLOOD GAS CARBOXYHEMOGLOBIN 2.1 % (0-4); BLOOD GAS HCO3 34 mmol/L (22-26); BLOOD GAS METHEMOGLOBIN 0.4 % (0-2); BLOOD GAS O2 HGB SATURATION 41 % (90-100); BLOOD GAS PCO2 61 mmHg (38-42); BLOOD GAS PO2 24 mmHG (61-120); BLOOD GAS TOTAL HGB 8.7 G/DL (12.0-16.0); TEMP CORR TO 98.6
[2017-01-29 12:04] LABS: CRITICAL VALUE YES
[2017-01-29 12:05] LABS: DRAW SITE LT RADIAL; LITER FLOW 15 L/M; NUMBER OF ARTERIAL PUNCTURES 1; OXYGEN DEVICE PRB; STAT YES; ULNAR PULSE Y
--- NOTE | 2017-01-29 12:05 | EKG ---
Date Performed: 01/29/2017 Time Performed: 09:58:10 PTAGE: 66 years EKG: SINUS TACHYCARDIA NONSPECIFIC ST & T-WAVE ABNORMALITY ABNORMAL RHYTHM ECG PREVIOUS TRACING : 11/17/2016 22.02 Compared to previous tracing, heart rate has increased, inf erior and lateral ST/T changes have improved. DOCTOR: Deandre Cowart Interpretating Date/Time 01/29/2017 12:03:40
--- NOTE | 2017-01-29 12:21 | RADRPT ---
EXAM DATE/TIME: 01/29/2017 11:45 [place] COMPARISON: CHEST SINGLE AP, January 29, 2017, 10:38. INDICATIONS : Evaluate ET tube placement. MEDICAL HISTORY : None. Cardiovascular disease. Chronic obstructive pulmonary disease. Diabetes SURGICAL HISTORY : None. ENCOUNTER: Initial ACUITY: 1 day PAIN SCORE: Non-responsive. LOCATION: Bilateral chest FINDINGS: A single portable frontal view of the chest shows interval placement of an endotracheal tube with the tip or centimeters proximal to the jasmin. Nasogastric tube courses off the inferior margin of the f ilm. Cardiomegaly, bilateral pleural effusions, and bilateral pulmonary infiltrates are unchanged. CONCLUSION: Endotracheal tube in good position. Unchanged effusions, cardiomegaly, and bilateral pulmonary edema. Juvenal Jarquin Jr., MD on January 29, 2017 at 12:18 Board Certified Radiologist. This report was verified electronically.
[2017-01-29] MEDS: INSULIN NovoLIN REGULAR SUPPLEMENTAL SCALE SQ SCH ×3 (14:14→20:00)
[2017-01-29] MEDS: RESP: ALBUTEROL 2.5 MG/IPRATROPIUM 0.5 MG NEB (SCH) INH ×2 (16:15→20:03)
--- NOTE | 2017-01-29 20:26 | HHI.HP ---
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 He represents today with worsening shortness of breath. Per the emergency department note he denied cough, fever, chills. He rapidly decompensated and the emergency department requiring intubation mechanical ventilation. His chest x-ray is suggestive of bilateral significant pulmonary edema. His BNP is severely elevated at greater than 1900. Unfortunately on my evaluation the patient is intubated and sedated and cannot provide any additional history. He is admitted to the ICU with severe CHF exacerbation. Review of Systems ROS Limitations: Clinical Condition, Intubated, Altered Mental Status Past Family Social History Allergies: Coded Allergies: *MDRO Multi-Drug Resistant Organism (Verified Adverse Reaction, Unknown, MRSA, 01/29/17) MRSA (toe wound) - 01/27/16; (foot) - 05/24/16 MRSA PCR Screen POSITIVE - 05/26/16 VRE (urine)-11/17/16 Past Medical History Unobtainable secondary to the clinical condition of the patient. Per chart review: Atrial fibrillation Depression Chronic Coumadin use secondary to atrial fib Systolic congestive heart failure EF 30-35% Hypertension Peripheral vascular disease COPD Diabetes Past Surgical History Unable to obtain from the patient secondary to his clinical condition. Per chart review: Cholecystectomy Tonsillectomy Reported Medications Unobtainable from the patient secondary to his clinical condition. Per chart review: Zosyn Inj (Piperacillin Sod/Tazobactam Sod) 4.5 Gm Inj 4.5 Gm IV Q6H 7 Days Coumadin (Warfarin) 6 Mg Tab 6 Mg PO DAILY Prednisone 20 Mg Tab 40 Mg PO DAILY 8 Days 40mg po daily x 2 days to be started 12/01/16 then 20mg po daily x 2 days then 10 mg po daily x 4 days then stop Duoneb (Ipratropium-Albuterol Neb) 0.5-2.5 Mg/3 Ml Neb 1 Ampule NEB Q6HR WHILE AWAKE NEB 30 Days Hydrocodone-Acetaminophen 7.5-325 mg Tab 1 Tab PO Q4-6H PRN Furosemide 40 Mg Tab 40 Mg PO DAILY 30 Days Lovenox Inj (Enoxaparin Sodium) 100 Mg/Ml Syr 100 Mg SQ Q12H 5 Days Santyl (Collagenase) 250 Unit/Gm Oin 1 Applic TOPICAL DAILY 30 Days Citracal + D3 Maximum (Calcium Citrate-Vitamin D) 315-250 Mg-Unit Tab 1 Tab PO BID Potassium Chloride ER (Potassium Chloride) 20 Meq Tab 20 Meq PO DAILY 30 Days Flomax (Tamsulosin HCl) 0.4 Mg Cap 0.4 Mg PO DAILY 30 Days Neurontin (Gabapentin) 300 Mg Cap 300 Mg PO TID 30 Days Simethicone 125 Mg Cap 80 Mg PO QID PRN Vitamin C (Ascorbic Acid) 250 Mg Tab 500 Mg PO DAILY Prilosec (Omeprazole Magnesium) 20 Mg Tab PO DAILY Multi Vitamin and Mineral (Multiple Vitamins W/ Minerals) 1 Tab Tab 1 PO DAILY Colace Clear (Docusate Sodium) 50 Mg Cap 100 Mg PO Zofran (Ondansetron HCl) 4 Mg Tab 4 Mg IM Q4HR PRN Reglan (Metoclopramide HCl) 10 Mg Tab 10 Mg PO QID Villalba Nasal [place] (Sodium Chloride) 0.65% [place] 2 [place] EACH NARE Q6HR PRN Novolin R Inj (Insulin Human Regular) 1,000 Unit/10 Ml Vial 3-15 Units SQ DIRECTED Sliding Scale: if 201-250=3 units, 251-300=5 units, 301-350=8 units, 351-400=10 units, 401+=15 units and call MD Quinones (Escitalopram Oxalate) 10 Mg Tab 10 Mg PO DAILY Levemir Flextouch Pen Inj (Insulin Detemir) 300 unit/3 ML Pen 15 Units SQ HS Coreg (Carvedilol) 3.125 Mg Tab 3.125 Mg PO Q12HR Active Ordered Medications See MAR Family History Unable to obtain from the patient secondary to his clinical condition. Social History Unable to be obtained from the patient secondary to his clinical condition. Per chart review: Former smoker and quit 8 months ago. Denies EtOH. Denied drugs of abuse. Physical Exam Vital Signs Vital Signs Date Time Temp Pulse Resp B/P (MAP) Pulse Ox O2 Delivery O2 Flow Rate FiO2 01/29/17 19:58 100 40 01/29/17 18:00 80 01/29/17 17:45 40 01/29/17 17:02 01/29/17 17:00 85 01/29/17 15:08 99.1 82 16 113/67 (82) 100 Auto-Vent 01/29/17 13:06 77 16 101/64 (76) 100 Auto-Vent 01/29/17 11:50 50 01/29/17 11:38 70 01/29/17 11:34 90 16 136/72 (93) 100 Auto-Vent 01/29/17 11:31 70 01/29/17 11:21 100 12 97/59 (72) 100 01/29/17 11:20 100 70 01/29/17 10:34 95 Partial Rebreather 15.00 01/29/17 10:19 101 32 98 Non-Rebreather 01/29/17 10:18 99 Non-Rebreather 15.00 01/29/17 09:55 97.4 102 32 130/59 (82) 98 Physical Exam GENERAL: Middle-aged male who appears older than stated age, lying in bed, intubated, sedated HEENT: Normocephalic. Atraumatic. Pupils equal, round, reactive, conjugate. Mucous membranes are moist NECK: Trachea is midline. Positive JVD CHEST: Bilateral crackles on all lung steven. Intubated. PRVC. CARDIOVASCULAR: Normal rate, irregularly irregular rhythm. A. fib by telemetry ABDOMEN: Soft, nontender, nondistended. No guarding. MUSCULOSKELETAL: Pulses 2+. No peripheral edema. NEUROLOGICAL: RASS -3. Intubated and sedated. Moves all extremity's. Withdraws to pain. Does not follow commands. Laboratory Laboratory Tests Test 01/29/17 10:00 01/29/17 10:05 01/29/17 16:15 01/29/17 17:00 White Blood Count 15.1 Red Blood Count 2.77 Hemoglobin 8.4 Hematocrit 27.1 Mean Corpuscular Volume 97.9 Mean Corpuscular Hemoglobin 30.5 Mean Corpuscular Hemoglobin Concent 31.1 Red Cell Distribution Width 17.7 Platelet Count 212 Mean Platelet Volume 7.7 Neutrophils (%) (Auto) 91.6 Lymphocytes (%) (Auto) 4.3 Monocytes (%) (Auto) 3.8 Eosinophils (%) (Auto) 0.0 Basophils (%) (Auto) 0.3 Neutrophils # (Auto) 13.8 Lymphocytes # (Auto) 0.6 Monocytes # (Auto) 0.6 Eosinophils # (Auto) 0.0 Basophils # (Auto) 0.0 CBC Comment DIFF FINAL Differential Comment Prothrombin Time 48.7 Prothromb Time International Ratio 4.1 Activated Partial Thromboplast Time 41.8 Blood Urea Nitrogen 22 Creatinine 1.16 Random Glucose 163 Total Protein 7.7 Albumin 2.4 Calcium Level 8.8 Alkaline Phosphatase 84 Aspartate Amino Transf (AST/SGOT) 50 Alanine Aminotransferase (ALT/SGPT) 48 Total Bilirubin 0.8 Sodium Level 138 Potassium Level 5.1 Chloride Level 97 Carbon Dioxide Level 36.6 Anion Gap 4 Estimat Glomerular Filtration Rate 63 Total Creatine Kinase 162 Creatine Kinase MB 18.6 Troponin I 0.08 0.29 B-Type Natriuretic Peptide 1928 Blood Gas Puncture Site LT RADIAL Blood Gas Patient Temperature 98.6 Blood Gas HCO3 34 Blood Gas Base Excess 8.4 Blood Gas Oxygen Saturation 41 Arterial Blood pH 7.36 Arterial Blood Partial Pressure CO2 61 Arterial Blood Partial Pressure O2 24 Arterial Blood Oxygen Content 5.0 Arterial Blood Carboxyhemoglobin 2.1 Arterial Blood Methemoglobin 0.4 Blood Gas Hemoglobin 8.7 Oxygen Delivery Device PRB Blood Gas Liter Flow 15 Result Diagram: 01/29/17 1000 01/29/17 1000 Imaging Chest x-ray 01/29: Bilateral alveolar infiltrates consistent with pulmonary edema Caprini VTE Risk Assessment Caprini VTE Risk Assessment: Mod/High Risk (score >= 2) VTE Pharm Contraindication: Coagulopathy,INR elevated Caprini Risk Assessment Model Point Value = 1 Point Value = 2 Point Value = 3 Point Value = 5 Age 41-60 Minor surgery BMI > 25 kg/m2 Swollen legs Varicose veins or History of unexplained or recurrent spontaneous Oral contraceptives or hormone replacement Sepsis (< 1 month) Serious lung disease, including pneumonia (< 1 month) Abnormal pulmonary function Acute myocardial infarction Congestive heart failure (< 1 month) History of inflammatory bowel disease Medical patient at bed rest Age 61-74 Arthroscopic surgery Major open surgery (> 45 min) Laparoscopic surgery (> 45 min) Malignancy Confined to bed (> 72 hours) Immobilizing plaster cast Central venous access Age >= 75 History of VTE Family history of VTE Factor V Leiden Prothrombin [id number] Lupus anticoagulant Anticardiolipin antibodies Elevated serum homocysteine Heparin-induced thrombocytopenia Other congenital or acquired thrombophilia Stroke (< 1 month) Elective arthroplasty Hip, pelvis, or leg fracture Acute spinal cord injury (< 1 month) Prophylaxis Regimen Total Risk Factor Score Risk Level Prophylaxis Regimen 0-1 Low Early ambulation 2 Moderate Order ONE of the following: *Sequential Compression Device (SCD) *Heparin 5000 units SQ BID 3-4 Higher Order ONE of the following medications: *Heparin 5000 units SQ TID *Enoxaparin/Lovenox 40 mg SQ daily (WT < 150 kg, CrCl > 30 mL/min) *Enoxaparin/Lovenox 30 mg SQ daily (WT < 150 kg, CrCl > 10-29 mL/min) *Enoxaparin/Lovenox 30 mg SQ BID (WT < 150 kg, CrCl > 30 mL/min) AND/OR *Sequential Compression Device (SCD) 5 or more Highest Order ONE of the following medications: *Heparin 5000 units SQ TID (Preferred with Epidurals) *Enoxaparin/Lovenox 40 mg SQ daily (WT < 150 kg, CrCl > 30 mL/min) *Enoxaparin/Lovenox 30 mg SQ daily (WT < 150 kg, CrCl > 10-29 mL/min) *Enoxaparin/Lovenox 30 mg SQ BID (WT < 150 kg, CrCl > 30 mL/min) AND *Sequential Compression Device (SCD) Assessment and Plan Assessment and Plan Assessment: 66-year-old male with history of systolic CHF and recurrent CHF exacerbations including a recent admission 11/2016 who presents with severe recurrent CHF exacerbation, systolic, requiring intubation mechanical ventilation for acute hypoxemic respiratory failure. He remains critically ill. Single dose of loop diuretic did not produce adequate urine so we will increase to a diuretic infusion. Troponins are likely secondary to demand ischemia from volume overload, but we will trend these. He is already anticoagulated and hypercoagulable from his Coumadin with an INR greater than 4. We will not start heparin and will trend daily INRs until his INR is less than 2. Plan by systems: Neurologic: Propofol, fentanyl for vent synchrony goal RASS -2 Respiratory: Acute hypoxic respiratory failure Pulmonary edema -- Secondary to CHF exacerbation -- no SBT today given hypoxemia and CHF exacerbation Cardiovascular: Acute Systolic CHF exacerbation Non-ST elevation myocardial infarction-- type II secondary to demand ischemia Elevated troponin -- unlikely to be ACS -- already anticoagulated and hypercoagulable. will not heparinize -- trend troponins -- aggressive forced diuresis. Renal: -- place Chase -- Strict I/Os FEN/GI: Hypokalemia Acute intravascular volume overload -- NPO -- ICU electrolyte protocol -- Bumex drip 0.5 mg/hr -- diamox 500mg iv q8h -- goal net negative 2-3L/24h Heme/ID: Coagulopathy Secondary to supratherapeutic INR on Coumadin -- no infectious etiology suspected at this time -- daily INR. -- hold coumadin -- hold on additional anticoagulation until INR < 2. Endocrine: Hyperglycemia of critical illness -- SSI, medium scale, every 6 Prophylaxis: GI Prophylaxis Protonix DVT Prophylaxis -- SCDs Holding pharmacologic DVT prophylaxis given coagulopathy. Once INR less than 2 we'll consider Lines: Peripheral IVs Chase Dispo: To ICU. Remains critically ill This patient remains critically ill with one or more organ systems which are or may become a threat to life. I have spent in excess of 41 minutes discontinuously in the care and management of this patient. This time is exclusive of procedures, and includes, but is not limited to, evaluation of the patient, review of the medical record, discussions with family, consultants, nursing staff, or respiratory therapy, and documentation in the medical record. Code Status Full Code Michael Cat MD Jan 29, 2017 20:26
[2017-01-29] MEDS: DOCUSATE SODIUM 50 MG/SENNA 8.6 MG TAB PO SCH (20:37)
[2017-01-29] MEDS: fentaNYL DRIP 250 ML IV SCH (20:38)
[2017-01-29] MEDS: CHLORHEXIDINE 0.12% (ORAL KIT) 15 ML CUP MT SCH (20:40)
[2017-01-29] MEDS ORDERED: BUMETANIDE INJ 100 ML IV SCH (21:00)
[2017-01-29] MEDS: BUMETANIDE INJ 100 ML IV SCH (21:41)
[2017-01-29 23:37] LABS: MAGNESIUM 2.1 MG/DL (1.5-2.5); POTASSIUM 4.4 MEQ/L (3.5-5.1)
[2017-01-30] VITALS (18 sets, daily range): BP systolic 83–111; BP diastolic 24–74; PULSE 68–87; RESP 15–17; TEMP 97.9–99; O2SAT 93–100
[2017-01-30] MEDS: INSULIN NovoLIN REGULAR SUPPLEMENTAL SCALE SQ SCH ×6 (03:36→20:00)
[2017-01-30] MEDS: CHLORHEXIDINE GLUCONATE 2 % 1 PACK (2 CLOTHS) TOP SCH (03:36)
[2017-01-30] MEDS: RESP: ALBUTEROL 2.5 MG/IPRATROPIUM 0.5 MG NEB (SCH) INH ×4 (03:48→20:30)
--- NOTE | 2017-01-30 04:46 | RADRPT ---
EXAM DATE/TIME: 01/30/2017 03:58 [facility] COMPARISON: CHEST SINGLE AP, January 29, 2017, 11:45. INDICATIONS : Short of breath. MEDICAL HISTORY : Cardiovascular disease. Chronic obstructive pulmonary disease. SURGICAL HISTORY : None. ENCOUNTER: Subsequent ACUITY: 2 days PAIN SCORE: 0/10 LOCATION: Bilateral chest FINDINGS: A single view of the chest demonstrates endotracheal tube in satisfactory position. Nasogastric tube enters stomach. Mild edema pattern persists with basilar airspace disease and small effusions. CONCLUSION: 1. Endotracheal tube and nasogastric tube in good position. No significant change in basilar airspace disease, mild edema pattern and small effusions, right greater than left. Nemesio Castañeda MD on January 30, 2017 at 4:43 Board Certified Radiologist. This report was verified electronically.
[2017-01-30 06:06] LABS: HEMATOCRIT 25.2 % (39.0-51.0); MEAN CELL VOLUME 97.4 FL (80.0-100.0); MEAN CORPUSCULAR HEMOGLOBIN 30.8 PG (27.0-34.0); MEAN CORPUSCULAR HGB CONC 31.6 % (32.0-36.0); PLATELET COUNT 195 TH/MM3 (150-450); RED BLOOD COUNT 2.59 MIL/MM3 (4.50-5.90); RED CELL DISTRIBUTION WIDTH 18.2 % (11.6-17.2); REVIEW FLAG FINAL; WHITE BLOOD COUNT 9.5 TH/MM3 (4.0-11.0)
[2017-01-30 06:20] LABS: APTT (PATIENT) 49.6 SEC (24.3-30.1); INTERNATIONAL NORMALIZED RATIO 4.4 RATIO; PROTHROMBIN TIME - PATIENT 52.5 SEC (9.8-11.6)
[2017-01-30 06:29] LABS: BLOOD GAS BASE EXCESS 9.9 mmol/L (-2-2); BLOOD GAS CARBOXYHEMOGLOBIN 2.4 % (0-4); BLOOD GAS HCO3 35 mmol/L (22-26); BLOOD GAS METHEMOGLOBIN 1.1 % (0-2); BLOOD GAS O2 HGB SATURATION 91 % (90-100); BLOOD GAS OXYGEN CONTENT 10.1 Vol % (12.0-20.0); BLOOD GAS PCO2 61 mmHg (38-42); BLOOD GAS PO2 70 mmHg (61-120); BLOOD GAS TOTAL HGB 7.9 G/DL (12.0-16.0); TEMP CORR TO 98.6
[2017-01-30 06:31] LABS: CRITICAL VALUE YES; OXYGEN DEVICE VENTILATOR
[2017-01-30 06:32] LABS: DRAW SITE RT RADIAL; FIO2 45 %; NUMBER OF ARTERIAL PUNCTURES 3; STAT NO; ULNAR PULSE PRESENT; VENT SETTINGS AC15/500/+5/45%
[2017-01-30 06:35] LABS: BICARBONATE 35.4 MEQ/L (21.0-32.0); MAGNESIUM 2.1 MG/DL (1.5-2.5); POTASSIUM 3.8 MEQ/L (3.5-5.1)
--- NOTE | 2017-01-30 06:56 | HHI.CCPN ---
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 He represents today with worsening shortness of breath. Per the emergency department note he denied cough, fever, chills. He rapidly decompensated and the emergency department requiring intubation mechanical ventilation. His chest x-ray is suggestive of bilateral significant pulmonary edema. His BNP is severely elevated at greater than 1900. Unfortunately on my evaluation the patient is intubated and sedated and cannot provide any additional history. He is admitted to the ICU with severe CHF exacerbation. Subjective: 01/30: failed SBT this AM for tachypnea and hypoxia. ABG with persistence of hypercarbic respiratory failure. bumex drip started last night and patient made > 1L urine. Cr stable this AM. Trop trended up slightly to 0.3 and now downtrending to 0.24. well-controlled sedation on fentanyl alone. patient somnolent but arousable. no complaints. Objective Vital Signs Date Time Temp Pulse Resp B/P (MAP) Pulse Ox O2 Delivery O2 Flow Rate FiO2 01/30/17 06:00 87 01/30/17 05:00 45 01/30/17 04:08 97 01/30/17 04:00 98.2 17 108/63 (78) 01/29/17 15:08 Auto-Vent 01/29/17 10:34 15.00 Result Diagram: 01/30/17 0458 01/30/17 0458 Other Results Laboratory Tests Test 01/29/17 10:05 01/30/17 06:13 Blood Gas Puncture Site LT RADIAL RT RADIAL Blood Gas Patient Temperature 98.6 98.6 Blood Gas HCO3 34 mmol/L (22-26) 35 mmol/L (22-26) Blood Gas Base Excess 8.4 mmol/L (-2-2) 9.9 mmol/L (-2-2) Blood Gas Oxygen Saturation 41 % (90-100) 91 % (90-100) Arterial Blood pH 7.36 (7.380-7.420) 7.38 (7.380-7.420) Arterial Blood Partial Pressure CO2 61 mmHg (38-42) 61 mmHg (38-42) Arterial Blood Partial Pressure O2 24 mmHG (61-120) 70 mmHg (61-120) Arterial Blood Oxygen Content 5.0 Vol % (12.0-20.0) 10.1 Vol % (12.0-20.0) Arterial Blood Carboxyhemoglobin 2.1 % (0-4) 2.4 % (0-4) Arterial Blood Methemoglobin 0.4 % (0-2) 1.1 % (0-2) Blood Gas Hemoglobin 8.7 G/DL (12.0-16.0) 7.9 G/DL (12.0-16.0) Oxygen Delivery Device PRB VENTILATOR Blood Gas Liter Flow 15 L/M Blood Gas Ventilator Setting AC15/500/+5/45% Blood Gas Inspired Oxygen 45 % Imaging Chest x-ray 01/29: Bilateral alveolar infiltrates consistent with pulmonary edema CXR 01/30: slight improvement in airspace disease bilaterally. Objective Remarks GENERAL: Middle-aged male who appears older than stated age, lying in bed, intubated, sedated HEENT: Normocephalic. Atraumatic. Pupils equal, round, reactive, conjugate. Mucous membranes are moist NECK: Trachea is midline. Positive JVD CHEST: Bilateral crackles on all lung steven, slightly improved but persistent. Intubated. PRVC, fio2 40%. CARDIOVASCULAR: Normal rate, regular rhythm. rate in the 70s. appears sinus this AM. ABDOMEN: Soft, nontender, nondistended. No guarding. MUSCULOSKELETAL: Pulses 2+. No peripheral edema. NEUROLOGICAL: RASS -2. Intubated and sedated. Moves all extremity's. w/d to pain. does not follow commands A/P Assessment and Plan Assessment: 66-year-old male with history of systolic CHF and recurrent CHF exacerbations including a recent admission 11/2016 who presents with severe recurrent CHF exacerbation, systolic, requiring intubation mechanical ventilation for acute hypoxemic respiratory failure. He remains critically ill. Not diuresing as well as expected given normal renal function. will continue bumex drip, add iv diuril and diamox. trop downtrending and we can stop trending at this point. INR still very high, will continue to trend. given volume overload, risk/benefit of FFP at this point without signs of bleeding is in favor of conservative management. Plan by systems: Neurologic: Propofol, fentanyl for vent synchrony goal RASS -2 Respiratory: Acute hypoxic respiratory failure Pulmonary edema -- Secondary to CHF exacerbation -- failed SBT today for hypoxia and tachypnea. will continue forced diuresis and attempt again tomorrow. Cardiovascular: Acute Systolic CHF exacerbation Non-ST elevation myocardial infarction-- type II secondary to demand ischemia Elevated troponin -- unlikely to be ACS -- already anticoagulated and hypercoagulable. will not heparinize -- troponins peaked at 0.32 and downtrending. can stop trending. -- aggressive forced diuresis. Renal: -- continue Chase -- Strict I/Os FEN/GI: Hypokalemia Acute intravascular volume overload -- NPO -- ICU electrolyte protocol -- Bumex drip 0.5 mg/hr -- diamox 500mg iv q8h -- 1 time dose of diuril 500mg iv x 1. -- goal net negative 2-3L/24h, failed goal yesterday. increase diuresis today. Heme/ID: Coagulopathy Secondary to supratherapeutic INR on Coumadin -- no infectious etiology suspected at this time -- daily INR, still supratherapeutic. -- hold coumadin -- hold on additional anticoagulation until INR < 2. Endocrine: Hyperglycemia of critical illness -- SSI, medium scale, every 6 Prophylaxis: GI Prophylaxis Protonix DVT Prophylaxis -- SCDs Holding pharmacologic DVT prophylaxis given coagulopathy. Once INR less than 2 we'll consider Lines: Peripheral IVs Chase Dispo: To ICU. Remains critically ill This patient remains critically ill with one or more organ systems which are or may become a threat to life. I have spent in excess of 32 minutes discontinuously in the care and management of this patient. This time is exclusive of procedures, and includes, but is not limited to, evaluation of the patient, review of the medical record, discussions with family, consultants, nursing staff, or respiratory therapy, and documentation in the medical record. Michael Cat MD Jan 30, 2017 06:56
[2017-01-30] MEDS ORDERED: CHLOROTHIAZIDE SOD 500 MG VIAL IV ONE (07:00)
[2017-01-30] MEDS: DOCUSATE SODIUM 50 MG/SENNA 8.6 MG TAB PO SCH ×2 (08:17→23:38)
[2017-01-30] MEDS: PANTOPRAZOLE SODIUM 40 MG VIAL IV SCH (08:18)
[2017-01-30] MEDS: CHLORHEXIDINE 0.12% (ORAL KIT) 15 ML CUP MT SCH ×2 (08:19→23:37)
[2017-01-30 16:46] LABS: BICARBONATE 37.2 MEQ/L (21.0-32.0); MAGNESIUM 2.1 MG/DL (1.5-2.5); POTASSIUM 3.4 MEQ/L (3.5-5.1)
[2017-01-30] MEDS ORDERED: METOLAZONE 5 MG TAB PO ONE (20:00)
[2017-01-30] MEDS ORDERED: SPIRONOLACTONE 25 MG TAB PO ONE (20:00)
[2017-01-30] MEDS: BUMETANIDE INJ 100 ML IV SCH (21:00)
[2017-01-30 22:12] LABS: BICARBONATE 36.9 MEQ/L (21.0-32.0); MAGNESIUM 2.2 MG/DL (1.5-2.5); POTASSIUM 3.1 MEQ/L (3.5-5.1)
[2017-01-31] VITALS (19 sets, daily range): BP systolic 91–107; BP diastolic 50–70; PULSE 69–96; RESP 14–15; TEMP 98.2–99; O2SAT 100
[2017-01-31 02:12] LABS: HEMATOCRIT 25.8 % (39.0-51.0); MEAN CELL VOLUME 99.2 FL (80.0-100.0); MEAN CORPUSCULAR HEMOGLOBIN 31.7 PG (27.0-34.0); PLATELET COUNT 172 TH/MM3 (150-450); RED CELL DISTRIBUTION WIDTH 17.8 % (11.6-17.2); REVIEW FLAG FINAL; WHITE BLOOD COUNT 10.2 TH/MM3 (4.0-11.0)
[2017-01-31 02:22] LABS: BICARBONATE 41.2 MEQ/L (21.0-32.0); POTASSIUM 3.1 MEQ/L (3.5-5.1)
[2017-01-31 02:36] LABS: APTT (PATIENT) 51.6 SEC (24.3-30.1); INTERNATIONAL NORMALIZED RATIO 4.3 RATIO
[2017-01-31] MEDS ORDERED: POTASSIUM CHLORIDE 20 MEQ CONTROLLED RELEASE TAB PO ONE (03:00)
[2017-01-31] MEDS ORDERED: POTASSIUM CHLORIDE 20 MEQ PWD PACKET OG-TUBE ONE (03:15)
[2017-01-31] MEDS: RESP: ALBUTEROL 2.5 MG/IPRATROPIUM 0.5 MG NEB (SCH) INH ×4 (03:33→20:40)
[2017-01-31] MEDS: INSULIN NovoLIN REGULAR SUPPLEMENTAL SCALE SQ SCH ×6 (04:00→20:00)
[2017-01-31] MEDS: CHLORHEXIDINE GLUCONATE 2 % 1 PACK (2 CLOTHS) TOP SCH (04:00)
[2017-01-31] MEDS ORDERED: PHYTONADIONE 5 MG TAB PO ONE (06:15)
--- NOTE | 2017-01-31 06:19 | HHI.CCPN ---
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 He represents today with worsening shortness of breath. Per the emergency department note he denied cough, fever, chills. He rapidly decompensated and the emergency department requiring intubation mechanical ventilation. His chest x-ray is suggestive of bilateral significant pulmonary edema. His BNP is severely elevated at greater than 1900. Unfortunately on my evaluation the patient is intubated and sedated and cannot provide any additional history. He is admitted to the ICU with severe CHF exacerbation. Subjective: 01/30: failed SBT this AM for tachypnea and hypoxia. ABG with persistence of hypercarbic respiratory failure. bumex drip started last night and patient made > 1L urine. Cr stable this AM. Trop trended up slightly to 0.3 and now downtrending to 0.24. well-controlled sedation on fentanyl alone. patient somnolent but arousable. no complaints. 01/31: much improved diuresis yesterday with > 4L uop. plan to repeat SBT today. trop downtrending. INR remains elevated at 4. Objective Vital Signs Date Time Temp Pulse Resp B/P (MAP) Pulse Ox O2 Delivery O2 Flow Rate FiO2 01/31/17 04:08 100 40 01/31/17 02:00 78 01/31/17 00:00 98.8 15 99/58 (72) 01/29/17 15:08 Auto-Vent 01/29/17 10:34 15.00 Result Diagram: 01/31/17 0202 01/31/17 0202 Imaging Chest x-ray 01/29: Bilateral alveolar infiltrates consistent with pulmonary edema CXR 01/30: slight improvement in airspace disease bilaterally. Objective Remarks GENERAL: Middle-aged male who appears older than stated age, lying in bed, intubated, sedated HEENT: Normocephalic. Atraumatic. Pupils equal, round, reactive, conjugate. Mucous membranes are moist NECK: Trachea is midline. Positive JVD CHEST: Bilateral crackles on all lung steven, slightly improved but persistent. Intubated. PRVC, fio2 40%. CARDIOVASCULAR: Normal rate, regular rhythm. rate in the 70s. appears sinus ABDOMEN: Soft, nontender, nondistended. No guarding. MUSCULOSKELETAL: Pulses 2+. No peripheral edema. NEUROLOGICAL: RASS -2. Intubated and sedated. Moves all extremity's. follows commands A/P Assessment and Plan Assessment: 66-year-old male with history of systolic CHF and recurrent CHF exacerbations including a recent admission 11/2016 who presents with severe recurrent CHF exacerbation, systolic, requiring intubation mechanical ventilation for acute hypoxemic respiratory failure. Highly complex. He remains critically ill. Improved diuresis. will attempt again to SBT, though he failed previously for hypoxia and tachypnea. INR remains severely elevated and supratherapeutic. will give single dose of vitamin K 2.5mg po x 1. Would not want to overcorrect patient as he still needs anticoagulation, but would prefer to drop INR closer to target range. still not a good candidate for FFP given his severe volume overload. Continue forced diuresis. Plan by systems: Neurologic: Propofol, fentanyl for vent synchrony goal RASS -2 Respiratory: Acute hypoxic respiratory failure Pulmonary edema -- Secondary to CHF exacerbation -- continue daily SBTs. failed previously for hypoxia, tachycardia. Cardiovascular: Acute Systolic CHF exacerbation Non-ST elevation myocardial infarction-- type II secondary to demand ischemia- resolving. Elevated troponin- resolved. -- unlikely to be ACS -- troponins peaked at 0.32 and downtrending. -- aggressive forced diuresis. Renal: -- continue Chase -- Strict I/Os FEN/GI: Hypokalemia Acute intravascular volume overload Metabolic alkalosis -- NPO -- ICU electrolyte protocol -- Bumex drip 0.5 mg/hr -- diamox 500mg iv q8h -- required metolazone x 2 on 01/30. will hold off this morning but may need to continue this. Heme/ID: Coagulopathy Secondary to supratherapeutic INR on Coumadin -- no infectious etiology suspected at this time -- daily INR, still supratherapeutic. -- hold coumadin -- hold on additional anticoagulation until INR < 2. -- one-time dose vitamin k 2.5mg po x 1. Endocrine: Hyperglycemia of critical illness -- SSI, medium scale, every 6 Prophylaxis: GI Prophylaxis Protonix DVT Prophylaxis -- SCDs Holding pharmacologic DVT prophylaxis given coagulopathy. Once INR less than 2 we'll consider Lines: Peripheral IVs Chase Dispo: remain in ICU. Remains critically ill Michael Cat MD Jan 31, 2017 06:19
[2017-01-31] MEDS: DOCUSATE SODIUM 50 MG/SENNA 8.6 MG TAB PO SCH ×2 (09:33→20:05)
[2017-01-31] MEDS: PANTOPRAZOLE SODIUM 40 MG VIAL IV SCH (09:33)
[2017-01-31] MEDS: CHLORHEXIDINE 0.12% (ORAL KIT) 15 ML CUP MT SCH ×2 (09:33→20:05)
--- NOTE | 2017-01-31 10:13 | PD.WCN.NOT ---
Wound Consult Description: R lower posterior leg wound and R posterior heel unstageable pressure injury Communicated with: TIEN Clark [facility] [place] and Doctor Edna Lynn Recommendation: Please cleanse R posterior lower leg wound with normal saline only and apply viviane thick Santyl ointment to wound bed. Please pack moistened 4x4 gauze pad loosely into wound bed and cover with dry 4x4 gauze pads and ABD pad. Secure dressing with rolled gauze and tape. Change dressing daily. Please cleanse R heel wound with normal saline only and apply viviane thick Santyl ointment in wound bed. Cover with slightly moistened 2x2 gauze pad and covered with dry 4x4 gauze pads. Secure dressing with rolled gauze and tape. Change dressing daily Additional Information: Patient seen on 5th floor [facility] [place] for evaluation of R leg / heel wounds.Patient was seen by wound care on previous admission for R heel wound that was noted a stage 3. Removed rolled gauze and 4x4 [address] to R foot to reveal unstageable pressure injury to R heel. Wound bed presents with ~70% clean red tissue and ~30% yellow loosely adherent slough. Wound has a wound shape with even well defined wound margins. Wound measures 4 cm x 3 cm x ~0.2cm.Periwound is unremarkable. wound drainage is minimal and sanguinous without odor. Cleansed wound with normal saline and applied oil emulsion gauze over wound bed and covered with dry 4x4 gauze pads. Secured dressing with rolled gauze and tape. Removed bordered gauze dressing in place to posterior lower leg to reveal full thickness wound etiology unknown. Wound bed presents with ~20% yellow loosely adherent slough, ~30% exposed tendon and ~50% clean red tissue. Wound margins are well defined.Periwound is unremarkable. Wound has minimal sanguinous drainage with mild odor. Cleansed wound with normal saline. Wound measures 19cm x 2cm x~1cm at the deepest.Applied oil emulsion gauze over exposed tendon and covered with ABD pad and dry 4x4 gauze. Secured dressing with rolled gauze and tape. Carey Iyer [facility] Jan 31, 2017 10:12
[2017-01-31] MEDS: COLLAGENASE OINT 30 GM TUBE TOPICAL SCH (12:00)
[2017-01-31 12:58] LABS: BICARBONATE 38.9 MEQ/L (21.0-32.0); MAGNESIUM 2.1 MG/DL (1.5-2.5); POTASSIUM 3.2 MEQ/L (3.5-5.1)
[2017-01-31 17:01] LABS: BICARBONATE 38.4 MEQ/L (21.0-32.0); MAGNESIUM 2.1 MG/DL (1.5-2.5); POTASSIUM 3.1 MEQ/L (3.5-5.1)
[2017-01-31] MEDS: fentaNYL DRIP 250 ML IV SCH (19:42)
[2017-01-31 20:12] LABS: BICARBONATE 40.8 MEQ/L (21.0-32.0); MAGNESIUM 2.1 MG/DL (1.5-2.5); POTASSIUM 3.1 MEQ/L (3.5-5.1)
[2017-02-01] VITALS (19 sets, daily range): BP systolic 92–111; BP diastolic 51–59; PULSE 76–143; RESP 15–18; TEMP 97.2–98.7; O2SAT 98–100
[2017-02-01] MEDS ORDERED: SODIUM CHLOR 0.9% 1000 ML INJ 1,000 ML IV ONE ×2 (00:30)
[2017-02-01] MEDS: CHLORHEXIDINE GLUCONATE 2 % 1 PACK (2 CLOTHS) TOP SCH ×2 (01:44→22:53)
[2017-02-01 02:23] LABS: HEMATOCRIT 27.1 % (39.0-51.0); MEAN CELL VOLUME 99.3 FL (80.0-100.0); MEAN CORPUSCULAR HEMOGLOBIN 31.1 PG (27.0-34.0); MEAN CORPUSCULAR HGB CONC 31.3 % (32.0-36.0); PLATELET COUNT 180 TH/MM3 (150-450); RED BLOOD COUNT 2.73 MIL/MM3 (4.50-5.90); RED CELL DISTRIBUTION WIDTH 17.7 % (11.6-17.2); REVIEW FLAG FINAL; WHITE BLOOD COUNT 10.8 TH/MM3 (4.0-11.0)
[2017-02-01 02:35] LABS: APTT (PATIENT) 37.3 SEC (24.3-30.1); INTERNATIONAL NORMALIZED RATIO 1.8 RATIO; PROTHROMBIN TIME - PATIENT 19.9 SEC (9.8-11.6)
[2017-02-01 02:53] LABS: BICARBONATE 41.3 MEQ/L (21.0-32.0); MAGNESIUM 1.9 MG/DL (1.5-2.5); POTASSIUM 3.2 MEQ/L (3.5-5.1)
[2017-02-01] MEDS: INSULIN NovoLIN REGULAR SUPPLEMENTAL SCALE SQ SCH ×6 (04:00→20:00)
[2017-02-01] MEDS: RESP: ALBUTEROL 2.5 MG/IPRATROPIUM 0.5 MG NEB (SCH) INH ×4 (04:01→19:40)
[2017-02-01] MEDS: POTASSIUM CHLOR 20 MEQ PREMIX 100 ML IV PRN ×5 (05:33→21:18)
[2017-02-01] MEDS: COLLAGENASE OINT 30 GM TUBE TOPICAL SCH (08:33)
[2017-02-01] MEDS: DOCUSATE SODIUM 50 MG/SENNA 8.6 MG TAB PO SCH ×2 (08:33→21:14)
[2017-02-01] MEDS: PANTOPRAZOLE SODIUM 40 MG VIAL IV SCH (08:33)
[2017-02-01] MEDS: CHLORHEXIDINE 0.12% (ORAL KIT) 15 ML CUP MT SCH ×2 (08:35→21:14)
[2017-02-01 10:32] LABS: BICARBONATE 40.5 MEQ/L (21.0-32.0); POTASSIUM 3.5 MEQ/L (3.5-5.1)
--- NOTE | 2017-02-01 11:23 | HHI.CCPN ---
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 He represents today with worsening shortness of breath. Per the emergency department note he denied cough, fever, chills. He rapidly decompensated and the emergency department requiring intubation mechanical ventilation. His chest x-ray is suggestive of bilateral significant pulmonary edema. His BNP is severely elevated at greater than 1900. Unfortunately on my evaluation the patient is intubated and sedated and cannot provide any additional history. He is admitted to the ICU with severe CHF exacerbation. Subjective: 01/30: failed SBT this AM for tachypnea and hypoxia. ABG with persistence of hypercarbic respiratory failure. bumex drip started last night and patient made > 1L urine. Cr stable this AM. Trop trended up slightly to 0.3 and now downtrending to 0.24. well-controlled sedation on fentanyl alone. patient somnolent but arousable. no complaints. 01/31: much improved diuresis yesterday with > 4L uop. plan to repeat SBT today. trop downtrending. INR remains elevated at 4. 02/01: continues to diurese well with net negative 4.7L/24h. Cr at baseline. failed SBT yesterday again for tachypnea. INR down to 1.8 from 4. still very somnolent. bumex held overnight and had to receive ivf overnight for hypotension and tachycardia. awake, but not following commands. Objective Vital Signs Date Time Temp Pulse Resp B/P (MAP) Pulse Ox O2 Delivery O2 Flow Rate FiO2 02/01/17 07:48 30 02/01/17 07:48 98 02/01/17 06:00 77 02/01/17 04:00 97.2 15 107/58 (74) 01/29/17 15:08 Auto-Vent 01/29/17 10:34 15.00 Intake and Output 02/01/17 02/01/17 02/01/17 07:59 15:59 23:59 Intake Total 110 ml Output Total 2200 ml Balance -2200 ml 110 ml Result Diagram: 02/01/17 0217 02/01/17 0926 Imaging Chest x-ray 01/29: Bilateral alveolar infiltrates consistent with pulmonary edema CXR 01/30: slight improvement in airspace disease bilaterally. Objective Remarks GENERAL: Middle-aged male who appears older than stated age, lying in bed, intubated, sedated HEENT: Normocephalic. Atraumatic. Pupils equal, round, reactive, conjugate. Mucous membranes are moist NECK: Trachea is midline. Positive JVD CHEST: Bilateral crackles on all lung steven, slightly improved but persistent. Intubated. PSV 40/5/5 on my eval. CARDIOVASCULAR: Normal rate, regular rhythm. rate in the 70s. appears sinus ABDOMEN: Soft, nontender, nondistended. No guarding. MUSCULOSKELETAL: Pulses 2+. No peripheral edema. NEUROLOGICAL: RASS -2. Intubated and sedated. Moves all extremity's. does not follow commands. CAM+. A/P Assessment and Plan Assessment: 66-year-old male with history of systolic CHF and recurrent CHF exacerbations including a recent admission 11/2016 who presents with severe recurrent CHF exacerbation, systolic, requiring intubation mechanical ventilation for acute hypoxemic respiratory failure. Highly complex. He remains critically ill. Improved diuresis. will attempt again to SBT, though he continues to fail for hypoxia and tachypnea. INR now under 2. will ask pharmacy to assist with reinstituting coumadin dosing. Continue forced diuresis. Plan by systems: Neurologic: Hypoactive delirium still CAM+. only on fentanyl. awake, but not following commands. this may prevent us from successful extubation. will add melatonin for sleep. Respiratory: Acute hypoxic respiratory failure Pulmonary edema -- Secondary to CHF exacerbation -- continue daily SBTs. failed previously for hypoxia, tachycardia. Cardiovascular: Acute Systolic CHF exacerbation Non-ST elevation myocardial infarction-- type II secondary to demand ischemia- resolving. Elevated troponin- resolved. -- unlikely to be ACS -- troponins peaked at 0.32 and downtrending. -- hold on further diuresis. goal euvolemic. -- will need outpatient follow up with cardiology. Renal: -- continue Chase -- Strict I/Os FEN/GI: Hypokalemia Acute intravascular volume overload- resolved. Metabolic alkalosis -- NPO -- ICU electrolyte protocol -- stopped bumex drip overnight due to hypotension and tachycardia -- continue diamox 500mg iv q8h Heme/ID: Coagulopathy Secondary to supratherapeutic INR on Coumadin -- no infectious etiology suspected at this time -- daily INR -- start coumadin with pharmacy dosing. goal INR 2-3 for atrial fibrillation. Endocrine: Hyperglycemia of critical illness -- SSI, medium scale, every 6 Prophylaxis: GI Prophylaxis Protonix DVT Prophylaxis -- SCDs -- coumadin. Lines: Peripheral IVs Chase Dispo: remain in ICU. Remains critically ill Michael Cat MD Feb 01, 2017 11:23
[2017-02-01 14:28] LABS: INDIRECT BILIRUBIN 0.4 MG/DL (0.0-0.8); TOTAL BILIRUBIN ADULT 0.8 MG/DL (0.2-1.0)
[2017-02-01] MEDS ORDERED: fentaNYL DRIP 250 ML IV SCH (14:45)
[2017-02-01] MEDS ORDERED: PROPOFOL 1000 MG/100 ML INJ 100 ML IV SCH (14:45)
[2017-02-01 14:59] LABS: BICARBONATE 36.6 MEQ/L (21.0-32.0); MAGNESIUM 1.9 MG/DL (1.5-2.5)
[2017-02-01 15:04] LABS: POTASSIUM 3.6 MEQ/L (3.5-5.1)
[2017-02-01] MEDS: WARFARIN SOD 5 MG TAB PO SCH (15:49)
[2017-02-01] MEDS: MELATONIN 5 MG TAB PO SCH (21:14)
[2017-02-01] MEDS ORDERED: OLANZapine ODT 5 MG TAB PO PRN (23:00)
[2017-02-02] VITALS (19 sets, daily range): BP systolic 60–104; BP diastolic 45–57; PULSE 79–135; RESP 4–17; TEMP 98.1–99.1; O2SAT 98–100
[2017-02-02] MEDS: POTASSIUM CHLOR 20 MEQ PREMIX 100 ML IV PRN ×3 (00:07→12:34)
[2017-02-02] MEDS: RESP: ALBUTEROL 2.5 MG/IPRATROPIUM 0.5 MG NEB (SCH) INH ×3 (01:20→14:50)
[2017-02-02] MEDS: INSULIN NovoLIN REGULAR SUPPLEMENTAL SCALE SQ SCH ×6 (04:00→20:00)
[2017-02-02 05:53] LABS: HEMATOCRIT 26.5 % (39.0-51.0); MEAN CELL VOLUME 97.7 FL (80.0-100.0); MEAN CORPUSCULAR HEMOGLOBIN 30.8 PG (27.0-34.0); MEAN CORPUSCULAR HGB CONC 31.5 % (32.0-36.0); PLATELET COUNT 204 TH/MM3 (150-450); RED BLOOD COUNT 2.71 MIL/MM3 (4.50-5.90); RED CELL DISTRIBUTION WIDTH 17.4 % (11.6-17.2); REVIEW FLAG FINAL; WHITE BLOOD COUNT 10.1 TH/MM3 (4.0-11.0)
[2017-02-02 06:03] LABS: APTT (PATIENT) 33.2 SEC (24.3-30.1); INTERNATIONAL NORMALIZED RATIO 1.2 RATIO; PROTHROMBIN TIME - PATIENT 13.3 SEC (9.8-11.6)
[2017-02-02 06:19] LABS: BICARBONATE 34.8 MEQ/L (21.0-32.0); POTASSIUM 3.4 MEQ/L (3.5-5.1)
[2017-02-02] MEDS: CHLORHEXIDINE 0.12% (ORAL KIT) 15 ML CUP MT SCH ×2 (08:00→20:00)
[2017-02-02] MEDS: COLLAGENASE OINT 30 GM TUBE TOPICAL SCH (09:11)
[2017-02-02] MEDS: PANTOPRAZOLE SODIUM 40 MG VIAL IV SCH (09:11)
[2017-02-02] MEDS: DOCUSATE SODIUM 50 MG/SENNA 8.6 MG TAB PO SCH ×2 (09:11→22:14)
[2017-02-02] MEDS: MAGNESIUM SULFATE 1 GM PREMIX 100 ML IV SCH ×2 (11:08→12:34)
[2017-02-02] MEDS: WARFARIN SOD 5 MG TAB PO SCH (17:27)
[2017-02-02 18:26] LABS: POTASSIUM 3.3 MEQ/L (3.5-5.1)
[2017-02-02 18:32] LABS: MAGNESIUM 2.5 MG/DL (1.5-2.5)
[2017-02-02] MEDS: RESP: ALBUTEROL 2.5 MG/IPRATROPIUM 0.5 MG NEB (PRN) INH (20:10)
[2017-02-02] MEDS: MELATONIN 5 MG TAB PO SCH (21:00)
[2017-02-02] MEDS: CHLORHEXIDINE GLUCONATE 2 % 1 PACK (2 CLOTHS) TOP SCH (22:19)
--- NOTE | 2017-02-02 22:37 | HHI.CCPN ---
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 He represents today with worsening shortness of breath. Per the emergency department note he denied cough, fever, chills. He rapidly decompensated and the emergency department requiring intubation mechanical ventilation. His chest x-ray is suggestive of bilateral significant pulmonary edema. His BNP is severely elevated at greater than 1900. Unfortunately on my evaluation the patient is intubated and sedated and cannot provide any additional history. He is admitted to the ICU with severe CHF exacerbation. Subjective: 01/30: failed SBT this AM for tachypnea and hypoxia. ABG with persistence of hypercarbic respiratory failure. bumex drip started last night and patient made > 1L urine. Cr stable this AM. Trop trended up slightly to 0.3 and now downtrending to 0.24. well-controlled sedation on fentanyl alone. patient somnolent but arousable. no complaints. 01/31: much improved diuresis yesterday with > 4L uop. plan to repeat SBT today. trop downtrending. INR remains elevated at 4. 02/01: continues to diurese well with net negative 4.7L/24h. Cr at baseline. failed SBT yesterday again for tachypnea. INR down to 1.8 from 4. still very somnolent. bumex held overnight and had to receive ivf overnight for hypotension and tachycardia. awake, but not following commands. 02/02: seen and evaluated around 07:30am. delayed note entry. failed SBT today for mental status. persistently hypoactive delirium. opens eyes but will not follow commands, no cough on command. but moves all extremities, purposeful. delirious but not agitated. Objective Vital Signs Date Time Temp Pulse Resp B/P (MAP) Pulse Ox O2 Delivery O2 Flow Rate FiO2 02/02/17 20:10 100 35 02/02/17 20:00 100 02/02/17 16:00 98.4 16 94/52 (66) 01/29/17 15:08 Auto-Vent 01/29/17 10:34 15.00 Intake and Output 02/02/17 02/02/17 02/03/17 08:00 16:00 00:00 Intake Total 441 ml 1620 ml Output Total 650 ml 650 ml Balance -209 ml 970 ml Result Diagram: 02/02/17 0455 02/02/17 1753 Imaging Chest x-ray 01/29: Bilateral alveolar infiltrates consistent with pulmonary edema CXR 01/30: slight improvement in airspace disease bilaterally. Objective Remarks GENERAL: Middle-aged male who appears older than stated age, lying in bed, intubated, sedated HEENT: Normocephalic. Atraumatic. Pupils equal, round, reactive, conjugate. Mucous membranes are moist NECK: Trachea is midline. Positive JVD CHEST: Bilateral crackles on all lung steven, slightly improved but persistent. Intubated. PSV 40/5/5 on my eval. CARDIOVASCULAR: Normal rate, regular rhythm. rate in the 70s. appears sinus ABDOMEN: Soft, nontender, nondistended. No guarding. MUSCULOSKELETAL: Pulses 2+. No peripheral edema. NEUROLOGICAL: RASS -2. Intubated and sedated. Moves all extremity's. does not follow commands. CAM+. A/P Assessment and Plan Assessment: 66-year-old male with history of systolic CHF and recurrent CHF exacerbations including a recent admission 11/2016 who presents with severe recurrent CHF exacerbation, systolic, requiring intubation mechanical ventilation for acute hypoxemic respiratory failure. Highly complex. He remains critically ill. unable to wean from mechanical ventilation for persistent hypoactive delirium. INR continues to trend down despite re- institution of Coumadin. will bridge with therapeutic lovenox now that his coagulopathy has resolved and his INR is 1.2 today. Plan by systems: Neurologic: Hypoactive delirium still CAM+. only on fentanyl. awake, but not following commands. this may prevent us from successful extubation. melatonin for sleep. day/night re-orientation Respiratory: Acute hypoxic respiratory failure- resolving. Pulmonary edema- resolved. -- Secondary to CHF exacerbation -- continue daily SBTs. failed previously for hypoxia, tachycardia, now fails for mental status. Cardiovascular: Acute Systolic CHF exacerbation Non-ST elevation myocardial infarction-- type II secondary to demand ischemia- resolving. Elevated troponin- resolved. -- unlikely to be ACS -- troponins peaked at 0.32 and downtrending. -- hold on further diuresis. goal euvolemic. -- will need outpatient follow up with cardiology. Renal: -- continue Chase -- Strict I/Os FEN/GI: Hypokalemia Acute intravascular volume overload- resolved. Metabolic alkalosis -- NPO -- ICU electrolyte protocol -- stopped bumex drip 01/31 due to hypotension and tachycardia -- continue diamox 500mg iv q8h Heme/ID: Coagulopathy Secondary to supratherapeutic INR on Coumadin- resolved. -- no infectious etiology suspected at this time -- daily INR -- started coumadin with pharmacy dosing 02/01. goal INR 2-3 for atrial fibrillation. -- INR continues to downtrend, now 1.2. will bridge with Lovenox 1mg/kg SQ q12h until therapeutic again. Endocrine: Hyperglycemia of critical illness -- SSI, medium scale, every 6 Prophylaxis: GI Prophylaxis Protonix DVT Prophylaxis -- SCDs -- coumadin. therapeutic lovenox bridge Lines: Peripheral IVs Chase Dispo: remain in ICU. Remains critically ill Michael Cat MD Feb 02, 2017 22:37
[2017-02-03] VITALS (15 sets, daily range): BP systolic 93–98; BP diastolic 51–54; PULSE 68–77; RESP 5–18; TEMP 98.1–99.3; O2SAT 100
[2017-02-03] MEDS: ENOXAPARIN SODIUM 80 MG/0.8 ML SYRINGE SQ SCH ×3 (00:46→22:08)
[2017-02-03] MEDS: RESP: ALBUTEROL 2.5 MG/IPRATROPIUM 0.5 MG NEB (PRN) INH (02:39)
[2017-02-03] MEDS: INSULIN NovoLIN REGULAR SUPPLEMENTAL SCALE SQ SCH ×6 (04:00→20:00)
[2017-02-03 04:39] LABS: HEMATOCRIT 24.7 % (39.0-51.0); MEAN CELL VOLUME 96.8 FL (80.0-100.0); MEAN CORPUSCULAR HEMOGLOBIN 31.6 PG (27.0-34.0); MEAN CORPUSCULAR HGB CONC 32.6 % (32.0-36.0); PLATELET COUNT 184 TH/MM3 (150-450); RED BLOOD COUNT 2.55 MIL/MM3 (4.50-5.90); RED CELL DISTRIBUTION WIDTH 17.4 % (11.6-17.2); REVIEW FLAG FINAL; WHITE BLOOD COUNT 9.5 TH/MM3 (4.0-11.0)
[2017-02-03 04:54] LABS: APTT (PATIENT) 36.4 SEC (24.3-30.1); INTERNATIONAL NORMALIZED RATIO 1.1 RATIO; PROTHROMBIN TIME - PATIENT 12.4 SEC (9.8-11.6)
[2017-02-03 05:02] LABS: BICARBONATE 32.7 MEQ/L (21.0-32.0)
[2017-02-03] MEDS: COLLAGENASE OINT 30 GM TUBE TOPICAL SCH (09:00)
[2017-02-03] MEDS: CHLORHEXIDINE 0.12% (ORAL KIT) 15 ML CUP MT SCH ×2 (09:08→20:00)
[2017-02-03] MEDS: PANTOPRAZOLE SODIUM 40 MG VIAL IV SCH (09:16)
[2017-02-03] MEDS: DOCUSATE SODIUM 50 MG/SENNA 8.6 MG TAB PO SCH ×2 (09:16→22:02)
[2017-02-03] MEDS: POTASSIUM CHLOR 20 MEQ PREMIX 100 ML IV PRN ×4 (10:54→16:09)
[2017-02-03] MEDS ORDERED: METOPROLOL TARTRATE 5 MG/5 ML VIAL IV PUSH PRN (12:15)
--- NOTE | 2017-02-03 12:17 | HHI.CCPN ---
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 He represents today with worsening shortness of breath. Per the emergency department note he denied cough, fever, chills. He rapidly decompensated and the emergency department requiring intubation mechanical ventilation. His chest x-ray is suggestive of bilateral significant pulmonary edema. His BNP is severely elevated at greater than 1900. Unfortunately on my evaluation the patient is intubated and sedated and cannot provide any additional history. He is admitted to the ICU with severe CHF exacerbation. Subjective: 01/30: failed SBT this AM for tachypnea and hypoxia. ABG with persistence of hypercarbic respiratory failure. bumex drip started last night and patient made > 1L urine. Cr stable this AM. Trop trended up slightly to 0.3 and now downtrending to 0.24. well-controlled sedation on fentanyl alone. patient somnolent but arousable. no complaints. 01/31: much improved diuresis yesterday with > 4L uop. plan to repeat SBT today. trop downtrending. INR remains elevated at 4. 02/01: continues to diurese well with net negative 4.7L/24h. Cr at baseline. failed SBT yesterday again for tachypnea. INR down to 1.8 from 4. still very somnolent. bumex held overnight and had to receive ivf overnight for hypotension and tachycardia. awake, but not following commands. 02/02: seen and evaluated around 07:30am. delayed note entry. failed SBT today for mental status. persistently hypoactive delirium. opens eyes but will not follow commands, no cough on command. but moves all extremities, purposeful. delirious but not agitated. 02/03: GCS 11 T. CPAP trials failed. Following commands. Denies pain at this time. Chest x-ray pending.INR 1.1. Since being transitioned on Lovenox for therapeutic INR goal 2-3. Objective Vital Signs Date Time Temp Pulse Resp B/P (MAP) Pulse Ox O2 Delivery O2 Flow Rate FiO2 02/03/17 10:35 100 35 02/03/17 08:00 99.2 68 6 98/54 (69) Intake and Output 02/03/17 02/03/17 02/03/17 07:59 15:59 23:59 Intake Total 170 ml Output Total 600 ml Balance -430 ml Result Diagram: 02/03/1734102/03/17341 Imaging Chest x-ray 01/29: Bilateral alveolar infiltrates consistent with pulmonary edema CXR 01/30: slight improvement in airspace disease bilaterally. Objective Remarks GENERAL: Middle-aged male who appears older than stated age, lying in bed, intubated, responding to my commands HEENT: Normocephalic. Atraumatic. Pupils equal, round, reactive, conjugate. Mucous membranes are moist NECK: Trachea is midline. Positive JVD CHEST: Mechanical ventilation . Scattered rhonchi in bases. Intubated. CPAP trials underway CARDIOVASCULAR: Normal rate, regular rhythm. rate in the 70-110 ABDOMEN: Soft, nontender, nondistended. No guarding. MUSCULOSKELETAL: Pulses 2+. No peripheral edema. NEUROLOGICAL: GCS 11 T. Intubated , following commands. Movement of extremities 4. A/P Assessment and Plan Assessment: 66-year-old male with history of systolic CHF and recurrent CHF exacerbations including a recent admission 11/2016 who presents with severe recurrent CHF exacerbation, systolic, requiring intubation mechanical ventilation for acute hypoxemic respiratory failure. Highly complex. He remains critically ill. unable to wean from mechanical ventilation for persistent hypoactive delirium. INR continues to trend down despite re- institution of Coumadin. Bridging therapy with therapeutic Lovenox now that his coagulopathy has resolved and his INR is 1.1 today. Plan by systems: Neurologic: Hypoactive delirium Continue fentanyl infusion . awake, but not following commands. melatonin for sleep. day/night re-orientation Respiratory: Acute hypoxic respiratory failure- resolving. Pulmonary edema- resolved. -- Secondary to CHF exacerbation -- continue daily SBTs. failed previously for hypoxia, tachycardia, now fails for mental status. --Consider plan for tracheostomy Cardiovascular: Acute Systolic CHF exacerbation Non-ST elevation myocardial infarction-- type II secondary to demand ischemia- resolving. Elevated troponin- resolved. -- unlikely to be ACS -- troponins peaked at 0.32 then downtrended -- hold on further diuresis. goal euvolemic. -- will need outpatient follow up with cardiology. Renal: -- continue Chase -- Strict I/Os FEN/GI: Hypokalemia Acute intravascular volume overload- resolved. Metabolic alkalosis -- Dietrary consult -- ICU electrolyte protocol -- stopped bumex drip 01/31 due to hypotension and tachycardia -- continue diamox 500mg iv q8h Heme/ID: Coagulopathy Secondary to supratherapeutic INR on Coumadin- resolved. -- no infectious etiology suspected at this time -- daily INR -- started coumadin with pharmacy dosing 02/01. goal INR 2-3 for atrial fibrillation. -- INR continues to downtrend, now 1.2. will bridge with Lovenox 1mg/kg SQ q12h until therapeutic again. Endocrine: Hyperglycemia of critical illness -- SSI, medium scale, every 6 Prophylaxis: GI Prophylaxis Protonix DVT Prophylaxis -- SCDs -- coumadin. therapeutic lovenox bridge Lines: Peripheral IVs Chase Dispo: Level 3 Discussed with CAFE ASSISTANT at bedside. Physician Jyoti Alvarado MD Feb 03, 2017 12:17
--- NOTE | 2017-02-03 13:44 | RADRPT ---
EXAM DATE/TIME: 02/03/2017 13:22 [facility] COMPARISON: CHEST SINGLE AP, January 30, 2017, 3:58. INDICATIONS : Respiratory status . MEDICAL HISTORY : Cardiovascular disease. Chronic obstructive pulmonary disease SURGICAL HISTORY : None. ENCOUNTER: Subsequent ACUITY: 4 - 6 days PAIN SCORE: Non-responsive. LOCATION: Bilateral upper chest FINDINGS: Portable semiupright view of the chest demonstrates stable appearance of endotracheal tube with the t ip overlying the level of the clavicles. The lungs demonstrate significant improvement as compared to the prior exam with no current evidence of air space consolidation or pleural effusion. Orogastric t ubing seen extending beyond the imaged portion of the film. CONCLUSION: Significantly improved exam with resolution of bilateral airspace opacities and pleural fluid. Stable endotracheal tube and orogastric tubing. Sonja Bolton MD on February 03, 2017 at 13:41 Board Certified Radiologist. This report was verified electronically.
[2017-02-03 14:11] LABS: BLOOD GAS BASE EXCESS 5.8 mmol/L (-2-2); BLOOD GAS CARBOXYHEMOGLOBIN 2.3 % (0-4); BLOOD GAS HCO3 29 mmol/L (22-26); BLOOD GAS METHEMOGLOBIN 0.8 % (0-2); BLOOD GAS O2 HGB SATURATION 97 % (90-100); BLOOD GAS OXYGEN CONTENT 13.6 Vol % (12.0-20.0); BLOOD GAS PCO2 38 mmHg (38-42); BLOOD GAS PO2 184 mmHg (61-120); BLOOD GAS TOTAL HGB 9.7 G/DL (12.0-16.0); CRITICAL VALUE NO; DRAW SITE LT RADIAL; FIO2 35 %; NUMBER OF ARTERIAL PUNCTURES 1; OXYGEN DEVICE VENTILATOR; STAT NO; TEMP CORR TO 98.6; ULNAR PULSE PRESENT; VENT SETTINGS AC15/500/PEEP5
[2017-02-03] MEDS ORDERED: WARFARIN SOD 7.5 MG TAB PO ONE (16:00)
[2017-02-03] MEDS: MELATONIN 5 MG TAB PO SCH (21:00)
[2017-02-04] VITALS (19 sets, daily range): BP systolic 92–107; BP diastolic 50–57; PULSE 70–90; RESP 5–20; TEMP 97.9–99.3; O2SAT 96–100
[2017-02-04] MEDS: CHLORHEXIDINE GLUCONATE 2 % 1 PACK (2 CLOTHS) TOP SCH ×2 (01:40→21:40)
[2017-02-04] MEDS: INSULIN NovoLIN REGULAR SUPPLEMENTAL SCALE SQ SCH ×6 (04:00→20:00)
[2017-02-04 05:41] LABS: HEMATOCRIT 25.2 % (39.0-51.0); MEAN CELL VOLUME 96.4 FL (80.0-100.0); MEAN CORPUSCULAR HEMOGLOBIN 30.2 PG (27.0-34.0); MEAN CORPUSCULAR HGB CONC 31.3 % (32.0-36.0); PLATELET COUNT 178 TH/MM3 (150-450); RED BLOOD COUNT 2.61 MIL/MM3 (4.50-5.90); REVIEW FLAG FINAL; WHITE BLOOD COUNT 8.7 TH/MM3 (4.0-11.0)
--- NOTE | 2017-02-04 05:42 | RADRPT ---
EXAM DATE/TIME: 02/04/2017 03:51 [facility] COMPARISON: CHEST SINGLE AP, February 03, 2017, 13:22. INDICATIONS : Shortness of breath, possible pulmonary disease. MEDICAL HISTORY : Cardiovascular disease. Chronic obstructive pulmonary disease. SURGICAL HISTORY : None. ENCOUNTER: Subsequent ACUITY: 4 - 6 days PAIN SCORE: Non-responsive. LOCATION: Bilateral chest FINDINGS: A single view of the chest demonstrates the endotracheal tube and nasogastric are both in good positi on. There is mild diffuse pulmonary vascular prominence. The cardiomediastinal contours are unremark able. Osseous structures are intact. CONCLUSION: Diffuse pulmonary vascular prominence. ET tube is in good position. Wes Kaiser MD on February 04, 2017 at 5:40 Board Certified Radiologist. This report was verified electronically.
[2017-02-04 05:57] LABS: APTT (PATIENT) 40.4 SEC (24.3-30.1); INTERNATIONAL NORMALIZED RATIO 1.3 RATIO; PROTHROMBIN TIME - PATIENT 14.3 SEC (9.8-11.6)
[2017-02-04 06:04] LABS: MAGNESIUM 2.4 MG/DL (1.5-2.5); POTASSIUM 3.6 MEQ/L (3.5-5.1)
[2017-02-04] MEDS: CHLORHEXIDINE 0.12% (ORAL KIT) 15 ML CUP MT SCH ×2 (08:20→20:00)
[2017-02-04] MEDS: COLLAGENASE OINT 30 GM TUBE TOPICAL SCH (09:51)
[2017-02-04] MEDS: DOCUSATE SODIUM 50 MG/SENNA 8.6 MG TAB PO SCH ×2 (09:51→21:40)
[2017-02-04] MEDS: PANTOPRAZOLE SODIUM 40 MG VIAL IV SCH (09:51)
[2017-02-04] MEDS: ENOXAPARIN SODIUM 80 MG/0.8 ML SYRINGE SQ SCH ×2 (11:18→21:40)
[2017-02-04] MEDS ORDERED: BISACODYL 10 MG SUPP RECTAL PRN (13:45)
[2017-02-04] MEDS ORDERED: LACTULOSE SYRUP 20 GM/30 ML CUP PO PRN (13:45)
[2017-02-04] MEDS ORDERED: SENNOSIDES 8.6 MG TAB PO PRN (13:45)
[2017-02-04] MEDS ORDERED: MAGNESIUM HYDROXIDE SUSP 30 ML CUP PO PRN (13:45)
[2017-02-04] MEDS: WARFARIN SOD 6 MG TAB PO SCH (15:16)
--- NOTE | 2017-02-04 19:34 | HHI.CCPN ---
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 He represents today with worsening shortness of breath. Per the emergency department note he denied cough, fever, chills. He rapidly decompensated and the emergency department requiring intubation mechanical ventilation. His chest x-ray is suggestive of bilateral significant pulmonary edema. His BNP is severely elevated at greater than 1900. Unfortunately on my evaluation the patient is intubated and sedated and cannot provide any additional history. He is admitted to the ICU with severe CHF exacerbation. Subjective: 01/30: failed SBT this AM for tachypnea and hypoxia. ABG with persistence of hypercarbic respiratory failure. bumex drip started last night and patient made > 1L urine. Cr stable this AM. Trop trended up slightly to 0.3 and now downtrending to 0.24. well-controlled sedation on fentanyl alone. patient somnolent but arousable. no complaints. 01/31: much improved diuresis yesterday with > 4L uop. plan to repeat SBT today. trop downtrending. INR remains elevated at 4. 02/01: continues to diurese well with net negative 4.7L/24h. Cr at baseline. failed SBT yesterday again for tachypnea. INR down to 1.8 from 4. still very somnolent. bumex held overnight and had to receive ivf overnight for hypotension and tachycardia. awake, but not following commands. 02/02: seen and evaluated around 07:30am. delayed note entry. failed SBT today for mental status. persistently hypoactive delirium. opens eyes but will not follow commands, no cough on command. but moves all extremities, purposeful. delirious but not agitated. 02/03: GCS 11 T. CPAP trials failed. Following commands. Denies pain at this time. Chest x-ray pending.INR 1.1. Since being transitioned on Lovenox for therapeutic INR goal 2-3. 02/04: No acute events overnight. The patient remained on CPAP for greater than 2 hours. Pt remains GCS 11T. Objective Vital Signs Date Time Temp Pulse Resp B/P (MAP) Pulse Ox O2 Delivery O2 Flow Rate FiO2 02/04/17 18:03 78 02/04/17 17:07 100 35 02/04/17 16:00 98.4 15 99/52 (68) Intake and Output 02/04/17 02/04/17 02/05/17 08:00 16:00 00:00 Intake Total 482 ml 17.5 ml 558 ml Output Total 550 ml 460 ml Balance -68 ml 17.5 ml 98 ml Result Diagram: 02/04/17 0514 02/04/17 0514 Imaging Last Impressions Chest X-Ray 02/04/17 0600 Signed Impressions: Service Date/Time: Saturday, February 04, 2017 03:51 - CONCLUSION: Diffuse pulmonary vascular prominence. ET tube is in good position. Wes Kaiser MD Chest x-ray 01/29: Bilateral alveolar infiltrates consistent with pulmonary edema CXR 01/30: slight improvement in airspace disease bilaterally. Objective Remarks GENERAL: Middle-aged male who appears older than stated age, lying in bed, intubated, responding to my commands HEENT: Normocephalic. Atraumatic. Pupils equal, round, reactive, conjugate. Mucous membranes are moist NECK: Trachea is midline. Positive JVD CHEST: Mechanical ventilation . Scattered rhonchi in bases. Intubated. CPAP trials underway CARDIOVASCULAR: Normal rate, regular rhythm. rate in the 70-110 ABDOMEN: Soft, nontender, nondistended. No guarding. MUSCULOSKELETAL: Pulses 2+. No peripheral edema. NEUROLOGICAL: GCS 11 T. Intubated , following commands. Movement of extremities 4. A/P Assessment and Plan Assessment: 66-year-old male with history of systolic CHF and recurrent CHF exacerbations including a recent admission 11/2016 who presents with severe recurrent CHF exacerbation, systolic, requiring intubation mechanical ventilation for acute hypoxemic respiratory failure. Highly complex. He remains critically ill. unable to wean from mechanical ventilation for persistent hypoactive delirium. INR continues to trend down despite re- institution of Coumadin. Bridging therapy with therapeutic Lovenox now that his coagulopathy has resolved and his INR is 1.1 today. Plan by systems: Neurologic: Hypoactive delirium Continue fentanyl infusion . awake, but not following commands. melatonin for sleep. day/night re-orientation- Sleep Hygiene Respiratory: Acute hypoxic respiratory failure- resolving. Pulmonary edema- resolved. -- Secondary to CHF exacerbation -- continue daily SBTs. failed previously for hypoxia, tachycardia, now fails for mental status. --Consider plan for tracheostomy Cardiovascular: Acute Systolic CHF exacerbation Non-ST elevation myocardial infarction-- type II secondary to demand ischemia- resolving. Elevated troponin- resolved. -- unlikely to be ACS -- troponins peaked at 0.32 then downtrended -- hold on further diuresis. goal euvolemic. -- will need outpatient follow up with cardiology. Renal: -- continue Chase -- Strict I/Os FEN/GI: Hypokalemia Acute intravascular volume overload- resolved. Metabolic alkalosis -- Dietrary consult -- ICU electrolyte protocol -- stopped bumex drip 01/31 due to hypotension and tachycardia -- continue diamox 500mg iv q8h Heme/ID: Coagulopathy Secondary to supratherapeutic INR on Coumadin- resolved. -- no infectious etiology suspected at this time -- daily INR -- started coumadin with pharmacy dosing 02/01. goal INR 2-3 for atrial fibrillation. -- INR continues to downtrend, now 1.2. will bridge with Lovenox 1mg/kg SQ q12h until therapeutic again. Endocrine: Hyperglycemia of critical illness -- SSI, medium scale, every 6 Prophylaxis: GI Prophylaxis Protonix DVT Prophylaxis -- SCDs -- coumadin. therapeutic lovenox bridge Polyneuropathy of critical illness -PT evaluation and treat Lines: Peripheral IVs Rena Dispo: Level 3 Discussed with WEB APPLICATIONS DEVELOPER at bedside. Physician Jyoti Alvarado MD Feb 04, 2017 19:34
[2017-02-04] MEDS: MELATONIN 5 MG TAB PO SCH (21:40)
[2017-02-05] VITALS (23 sets, daily range): BP systolic 95–127; BP diastolic 50–76; PULSE 70–111; RESP 7–20; TEMP 97.6–99.7; O2SAT 97–100
[2017-02-05] MEDS: INSULIN NovoLIN REGULAR SUPPLEMENTAL SCALE SQ SCH ×7 (04:00→23:40)
[2017-02-05 04:15] LABS: MEAN CELL VOLUME 96.5 FL (80.0-100.0); MEAN CORPUSCULAR HEMOGLOBIN 30.5 PG (27.0-34.0); MEAN CORPUSCULAR HGB CONC 31.6 % (32.0-36.0); PLATELET COUNT 169 TH/MM3 (150-450); RED BLOOD COUNT 2.59 MIL/MM3 (4.50-5.90); RED CELL DISTRIBUTION WIDTH 17.3 % (11.6-17.2); REVIEW FLAG FINAL; WHITE BLOOD COUNT 8.9 TH/MM3 (4.0-11.0)
[2017-02-05 04:24] LABS: APTT (PATIENT) 48.5 SEC (24.3-30.1); INTERNATIONAL NORMALIZED RATIO 1.5 RATIO; PROTHROMBIN TIME - PATIENT 16.8 SEC (9.8-11.6)
[2017-02-05 04:38] LABS: BICARBONATE 33.8 MEQ/L (21.0-32.0); MAGNESIUM 2.3 MG/DL (1.5-2.5); POTASSIUM 3.6 MEQ/L (3.5-5.1)
--- NOTE | 2017-02-05 05:03 | RADRPT ---
EXAM DATE/TIME: 02/05/2017 03:18 [facility] COMPARISON: CHEST SINGLE AP, February 04, 2017, 3:51. INDICATIONS : Shortness of breath, possible pulmonary disease. MEDICAL HISTORY : Cardiovascular disease. Chronic obstructive pulmonary disease. SURGICAL HISTORY : None. ENCOUNTER: Subsequent ACUITY: 1 week PAIN SCORE: Non-responsive. LOCATION: Bilateral chest FINDINGS: Portable AP view of the chest demonstrates a normal-sized cardiac silhouette. ETT and nasogastric tub e remain present. There is opacities in the right lung that are stable. No pleural effusion or pneumo thorax is identified. CONCLUSION: Stable chest x-ray with right lung interstitial changes. Bret Lizama MD on February 05, 2017 at 5:01 Board Certified Radiologist. This report was verified electronically.
[2017-02-05] MEDS: PANTOPRAZOLE SODIUM 40 MG VIAL IV SCH (08:05)
[2017-02-05] MEDS: CHLORHEXIDINE 0.12% (ORAL KIT) 15 ML CUP MT SCH ×2 (08:05→20:19)
[2017-02-05] MEDS: DOCUSATE SODIUM 50 MG/SENNA 8.6 MG TAB PO SCH ×2 (08:05→20:19)
[2017-02-05] MEDS: COLLAGENASE OINT 30 GM TUBE TOPICAL SCH (08:06)
--- NOTE | 2017-02-05 09:19 | HHI.CCPN ---
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 He represents today with worsening shortness of breath. Per the emergency department note he denied cough, fever, chills. He rapidly decompensated and the emergency department requiring intubation mechanical ventilation. His chest x-ray is suggestive of bilateral significant pulmonary edema. His BNP is severely elevated at greater than 1900. Unfortunately on my evaluation the patient is intubated and sedated and cannot provide any additional history. He is admitted to the ICU with severe CHF exacerbation. 01/30: failed SBT this AM for tachypnea and hypoxia. ABG with persistence of hypercarbic respiratory failure. bumex drip started last night and patient made > 1L urine. Cr stable this AM. Trop trended up slightly to 0.3 and now downtrending to 0.24. well-controlled sedation on fentanyl alone. patient somnolent but arousable. no complaints. 01/31: much improved diuresis yesterday with > 4L uop. plan to repeat SBT today. trop downtrending. INR remains elevated at 4. 02/01: continues to diurese well with net negative 4.7L/24h. Cr at baseline. failed SBT yesterday again for tachypnea. INR down to 1.8 from 4. still very somnolent. bumex held overnight and had to receive ivf overnight for hypotension and tachycardia. awake, but not following commands. 02/02: seen and evaluated around 07:30am. delayed note entry. failed SBT today for mental status. persistently hypoactive delirium. opens eyes but will not follow commands, no cough on command. but moves all extremities, purposeful. delirious but not agitated. 02/03: GCS 11 T. CPAP trials failed. Following commands. Denies pain at this time. Chest x-ray pending.INR 1.1. Since being transitioned on Lovenox for therapeutic INR goal 2-3. 02/04: No acute events overnight. The patient remained on CPAP for greater than 2 hours. Pt remains GCS 11T. Subjective: 02/05: Currently on ACV. 5 hours PSV trial yesterday. Off all sedation. Arousable and follows simple commands. Tolerating tube feeding. No bowel movement. Objective Vital Signs Date Time Temp Pulse Resp B/P (MAP) Pulse Ox O2 Delivery O2 Flow Rate FiO2 02/05/17 06:00 75 02/05/17 04:11 100 35 02/05/17 04:00 98.2 7 105/57 (73) Intake and Output 02/05/17 02/05/17 02/05/17 07:59 15:59 23:59 Intake Total 200 ml Output Total 526 ml Balance -326 ml Result Diagram: 02/05/1733602/05/17336 Imaging Last Impressions Chest X-Ray 02/05/17 0600 Signed Impressions: Service Date/Time: Sunday, February 05, 2017 03:18 - CONCLUSION: Stable chest x-ray with right lung interstitial changes. Bret Lizama MD Objective Remarks GENERAL: 58-year-old male, critically ill currently orotracheally intubated HEENT: Normocephalic. Atraumatic. Pupils equal, round, reactive, conjugate. Mucous membranes are moist and pink. Oral pharynx without erythema or thrush NECK: Trachea is midline. No JVD. Supple. CHEST: Bilateral coarse crackles appreciated. No wheezing. CARDIOVASCULAR: RRR. S1, S2 no S4 without murmur ABDOMEN: Soft, nontender, nondistended. Hypoactive bowel sounds are appreciated MUSCULOSKELETAL: Left [id number] amputation. Large right lower extremity wound with exposed tendon lateral aspect 182 cm. Stage IV right heel 4 centimeters by 3 cm decubitus ulcer. NEUROLOGICAL: GCS 11 T. positive gag. Positive corneal reflex. Intubated , following commands. Movement of extremities 4. A/P Assessment and Plan Neuro/Psych: Hypoactive delirium Insomnia Hard of hearing History of chronic pain syndrome Diabetes mellitus neuropathy Currently off fentanyl infusion . awake, but not following commands. melatonin 5 mill grams at bedtime when necessary for insomnia Resume gabapentin 300 mg 3 times a day for diabetic neuropathy Respiratory: Acute hypoxic respiratory failure- resolving secondary to acute on chronic diastolic heart failure. Pulmonary edema- resolved. ACV 15/500/5/35 Ventilator bundle Albuterol/ipratropium every 6 hours and albuterol every 2 hours. Dyspnea Spontaneous breathing trials daily Follow-up chest x-ray in a.m. Cardiovascular: Acute Systolic CHF exacerbation Non-ST elevation myocardial infarction-- type II secondary to demand ischemia- resolving. Elevated troponin- resolved. Moderate pulmonary hypertension Severe three-vessel coronary disease - not amenable to bypass or PCI - 2015 cardiology evaluation History of peripheral vascular disease History of atrial fibrillation -- troponins peaked at 0.32 then downtrended -- hold on further diuresis. goal euvolemic. On furosemide 40 mg by mouth daily at home with potassium supplementation Echocardiogram 2015 EF 50-55%. 11/25 EF 35-40%. Moderate LVH. Global LV dysfunction. PAP 40-50 cm H2O Holding home medication carvedilol 3.125 mg by mouth twice a day. Evaluated by vascular surgery 617 for right lower extremity ulceration. Very poor surgical candidate. Needs right lower extremity amputated. Refused in past. Not a candidate Renal/: BPH Continued tamsulosin 0.4 mg by mouth daily. -- continue Chase -- Strict I/Os - Creatinine currently within normal limits FEN/GI: Hypokalemia Acute intravascular volume overload- resolved. Gastroesophageal reflux disease --Currently on Glucerna 1.5 goal 60 cc an hour - Pantoprazole 40 mg daily for GI prophylaxis. On omeprazole 20 mg by mouth daily at home. Heme/ID: Coagulopathy Secondary to supratherapeutic INR on warfarin- resolved. 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 goal INR 2-3 for atrial fibrillation. -- INR continues to downtrend, now 1.5. will bridge with Lovenox and milligrams SQ q12h until therapeutic again. Endocrine: Diabetes mellitus hyperglycemia -- SSI, medium scale, every 6 MSK: Right heel decubitus ulcer unstageable Right lower extremity ulceration Evaluated by wound care. Currently oil emulsion gauze daily. Wet-to-dry changes daily. Prophylaxis: GI Prophylaxis Pantoprazole DVT Prophylaxis -- SCDs --Warfarin/enoxaparin Access - Utilize peripheral IV. Central line if indicated Level III follow-up Kip Cevallos MD Feb 05, 2017 09:19
[2017-02-05] MEDS: ENOXAPARIN SODIUM 80 MG/0.8 ML SYRINGE SQ SCH ×2 (10:48→23:40)
[2017-02-05] MEDS ORDERED: POLYETHYLENE GLYCOL 17 GM PKG PO ONE (11:00)
[2017-02-05] MEDS ORDERED: POTASSIUM PHOSPHATE INJ 15 MMOL in SODIUM CHLORIDE 0.9% INJ 150 ML IV ONE (11:00)
--- NOTE | 2017-02-05 11:46 | PD.CONS ---
Consult Service Palliative Care . Consult Requested By Dr. Cevallos . Primary Care Physician Unknown . Reason for Consultation a. To assist with evaluation and management of symptoms including: pain, dyspnea, debility b. To assist medical decision maker(s) with: better understanding of current medical conditions; weighing benefits/burdens of medical treatment options; making medical treatment decisions. . HPI History of Present Illness Mr. Milian with atrial fibrillation on anticoagulation, depression, systolic congestive heart failure EF 30-35%, hypertension, hyperlipidemia, PVD, diabetes and COPD presented to [facility] ED via FD on 01/29/17 for evaluation of shortness of breath that began several days ago and came progressively worse earlier that day. Fire department reported when they arrived the patient was confused with, oxygen saturation was 66% on 5L per nasal cannula. Patient was placed on a nonrebreather with improved mentation. The patient was tachypneic and severely dyspneic on exam. Pulse: 102, respirations 32, BP 130/59, temperature 97.4, oxygen saturation 99% on NRB. Further diagnostic data: * WBC: 10.1, hemoglobin 8.4, hematocrit 27.1, platelets 212, neutrophils 91.6% * Sodium: 138, potassium 5.1, chloride 97, carbon dioxide 36.6, glucose 163, calcium 8.8 * BUN: 22, creatinine 1.16, GFR 63 * The total bilirubin: 0.8, AST 50, ALT 48, alkaline phosphatase 84 * Total creatine kinase: 162 * CK-MB: 18.6 * Troponin: 0.08 * BNP: 1928 * Total protein: 7.7, albumin 2.4 * PT: 48.7, INR 4.1, APTT 41.8 Patient rapidly rapidly decompensated in the ED requiring intubation and mechanical ventilation. His BNP was elevated at 1928. Chest x-ray is suspicious for bilateral pulmonary edema and cardiomegaly. Patient received furosemide Patient was admitted to intensive care for further evaluation and medical management. Patient did not respond adequately to single dose of furosemide. He was started on Bumex drip 0.5 mg/h and Diamox 500 mg IV every 8 hours. Troponins are likely elevated secondary to demand ischemia from fluid overload, trending troponins. Patient is on anticoagulation therapy for atrial fibrillation; currently hyper coagulable with an INR >4; plan to trend daily INRs until his IINR is < 2. On 01/31/2017: Patient has been failing SBT due to hypoxia and tachypnea; will continue trials as tolerated. Patient received PO vitamin K 1 for persistent supratherapeutic INR. Wound care was consulted to evaluate right anterior lower leg and heel. Of note, patient was seen by wound care on previous admission for stage IV right heel wound. Follow-up chest x-ray on February 03, 2017 showing resolution of bilateral airspace opacities and pleural fluid. Continues to fail spontaneous breathing trials. INR trending downward despite re-institution of Coumadin, bridging therapy with Lovenox until INR is therapeutic again at 2-3. INR is 1.1 today. Patient remains intubated, tolerating CPAP this morning. Arousable off sedation , opened eyes briefly. Following simple commands. Tolerating artificial nutrition at 60 mL per hour In reviewing notes, it appears the patient was evaluated by cardiovascular surgery in November, for recommendations on management of his nonhealing right leg wounds. Per Dr. Johansen, the patient is not candidate for revascularization surgery and will eventually require an [id number] amputation. Palliative Care was consulted to assist with symptom management and to discuss with the patient/family the benefits and burdens of his current illnesses and the options regarding future care. . Function/Cognitive Trajectory 66-year-old male with a complex medical history who has been hospitalized 4 times in the past 8 months. Patient has been residing in a chcf since 2013. He is nonambulatory/ wheelchair bound and completely dependent for all ADLs. Patient's brother says the patient is in bed on most days. The patient's brother reports the patient has become more withdrawn and his appetite has been fine in recent months. He states he thinks his brother has given up. . Review of Systems ROS Limitations: Clinical Condition, Intubated (Patient is unable to provide ROS; information 3 report and review of notes.) Constitutional: COMPLAINS OF: Fatigue (increased fatigue), Change in appetite ( decreased appetite), Pain, Generalized weakness (primarily bedbound) Respiratory: COMPLAINS OF: Shortness of breath Cardiovascular: COMPLAINS OF: Dyspnea on Exertion Neurologic: COMPLAINS OF: Speech Problems Past Family Social History Coded Allergies: *MDRO Multi-Drug Resistant Organism (Verified Adverse Reaction, Unknown, MRSA, 01/29/17) MRSA (toe wound) - 01/27/16; (foot) - 05/24/16 MRSA PCR Screen POSITIVE - 05/26/16 VRE (urine)-11/17/16 Past Medical History Per chart review: Atrial fibrillation Depression Chronic Coumadin use secondary to atrial fib Systolic congestive heart failure EF 30-35% Hypertension Peripheral vascular disease COPD Diabetes Diabetic neuropathy Chronic lower extremity wounds History of rheumatic fever . Past Surgical History Per chart review: Cholecystectomy Tonsillectomy Left BKA . Reported Medications Per chart review: Zosyn Inj (Piperacillin Sod/Tazobactam Sod) 4.5 Gm Inj 4.5 Gm IV Q6H 7 Days Coumadin (Warfarin) 6 Mg Tab 6 Mg PO DAILY Prednisone 20 Mg Tab 40 Mg PO DAILY 8 Days 40mg po daily x 2 days to be started 12/01/16 then 20mg po daily x 2 days then 10 mg po daily x 4 days then stop Duoneb (Ipratropium-Albuterol Neb) 0.5-2.5 Mg/3 Ml Neb 1 Ampule NEB Q6HR WHILE AWAKE NEB 30 Days Hydrocodone-Acetaminophen 7.5-325 mg Tab 1 Tab PO Q4-6H PRN Furosemide 40 Mg Tab 40 Mg PO DAILY 30 Days Lovenox Inj (Enoxaparin Sodium) 100 Mg/Ml Syr 100 Mg SQ Q12H 5 Days Santyl (Collagenase) 250 Unit/Gm Oin 1 Applic TOPICAL DAILY 30 Days Citracal + D3 Maximum (Calcium Citrate-Vitamin D) 315-250 Mg-Unit Tab 1 Tab PO BID Potassium Chloride ER (Potassium Chloride) 20 Meq Tab 20 Meq PO DAILY 30 Days Flomax (Tamsulosin HCl) 0.4 Mg Cap 0.4 Mg PO DAILY 30 Days Neurontin (Gabapentin) 300 Mg Cap 300 Mg PO TID 30 Days Simethicone 125 Mg Cap 80 Mg PO QID PRN Vitamin C (Ascorbic Acid) 250 Mg Tab 500 Mg PO DAILY Prilosec (Omeprazole Magnesium) 20 Mg Tab PO DAILY Multi Vitamin and Mineral (Multiple Vitamins W/ Minerals) 1 Tab Tab 1 PO DAILY Colace Clear (Docusate Sodium) 50 Mg Cap 100 Mg PO Zofran (Ondansetron HCl) 4 Mg Tab 4 Mg IM Q4HR PRN Reglan (Metoclopramide HCl) 10 Mg Tab 10 Mg PO QID Tiro Nasal Worth (Sodium Chloride) 0.65% Worth 2 Worth EACH NARE Q6HR PRN Novolin R Inj (Insulin Human Regular) 1,000 Unit/10 Ml Vial 3-15 Units SQ DIRECTED Sliding Scale: if 201-250=3 units, 251-300=5 units, 301-350=8 units, 351-400=10 units, 401+=15 units and call MD Quinones (Escitalopram Oxalate) 10 Mg Tab 10 Mg PO DAILY Levemir Flextouch Pen Inj (Insulin Detemir) 300 unit/3 ML Pen 15 Units SQ HS Coreg (Carvedilol) 3.125 Mg Tab 3.125 Mg PO Q12HR . Current Medications Medications (Trade) Dose Ordered Sig/Thaddeus Route Start Time Stop Time Status Last Admin (NS Flush) 2 ml UNSCH PRN IVF 01/29/17 10:15 01/31/17 19:42 (Mag-Ox) 800 mg UNSCH PRN PO 01/29/17 12:00 Magnesium Sulfate 4 gm/Sodium Chloride 100 ml @ 50 mls/hr UNSCH PRN IV 01/29/17 12:00 Magnesium Sulfate 2 gm/Sodium Chloride 100 ml @ 50 mls/hr UNSCH PRN IV 01/29/17 12:00 Potassium Chloride 100 ml @ 50 mls/hr Q2H PRN IV 01/29/17 12:00 02/03/17 16:09 Potassium Chloride 100 ml @ 50 mls/hr Q2H PRN IV 01/29/17 12:00 02/02/17 12:34 Potassium Chloride 100 ml @ 50 mls/hr Q2H PRN IV 01/29/17 12:00 Potassium Chloride 100 ml @ 25 mls/hr UNSCH PRN IV 01/29/17 12:00 (K-Phos) 2,000 mg Q4H PRN PO 01/29/17 12:00 (K-Phos) 2,000 mg UNSCH PRN PO/TUBE 01/29/17 12:00 Potassium Phosphate 30 mmol/ Sodium Chloride 260 ml @ 42 mls/hr UNSCH PRN IV 01/29/17 12:00 Sodium Phosphate 30 mmol/Sodium Chloride 250 ml @ 42 mls/hr UNSCH PRN IV 01/29/17 12:00 (Peridex 0.12% Liq) 15 ml BID@08,20 MT 01/29/17 20:00 02/05/17 08:05 (D50w (Vial) Inj) 25 ml UNSCH PRN IV PUSH 01/29/17 12:00 02/03/17 16:48 (NovoLIN R SUPPLEMENTAL SCALE) 1 Q4HR SQ 01/29/17 12:00 02/05/17 00:00 (Duoneb Neb) 1 ampule Q2HR NEB PRN INH 01/29/17 12:00 02/03/17 02:39 (Tylenol) 650 mg Q6H PRN PO 01/29/17 12:00 (Morphine Inj) 2 mg Q2H PRN IV 01/29/17 12:00 (Protonix Inj) 40 mg DAILY IV 01/30/17 09:00 02/05/17 08:05 (Zofran Inj) 4 mg Q6H PRN IV 01/29/17 12:00 Miscellaneous Information 1 Q361D XX 01/29/17 12:00 (Chlorhexidine 2% Cloth) Taper DAILY@04 TOP 01/30/17 04:00 01/26/18 03:59 02/04/17 21:40 (Chlorhexidine 2% Cloth) 3 pack UNSCH PRN TOP 01/29/17 12:00 (Santyl Oint) 1 applic DAILY TOPICAL 01/31/17 12:00 02/05/17 08:06 Pharmacy Profile Note 0 ml @ 0 mls/hr UNSCH OTHER 02/01/17 11:15 (Melatonin) 5 mg HS PO 02/01/17 21:00 02/04/17 21:40 (ZyPREXA ZYDIS ODT) 5 mg Q24H PRN PO 02/01/17 23:00 Fentanyl Citrate 250 ml @ 0 mls/hr TITRATE IV 02/01/17 14:45 02/03/17 12:57 (Lovenox Inj) 80 mg Q12H SQ 02/02/17 23:00 02/04/17 21:40 (Lopressor Inj) 2.5 mg Q6H PRN IV PUSH 02/03/17 12:15 (Coumadin) 6 mg DAILY@1600 PO 02/04/17 16:00 02/04/17 15:16 (Grace-Colace) 1 tab BID PO 02/04/17 21:00 02/04/17 21:40 (Milk Of Magnesia Liq) 30 ml Q12H PRN PO 02/04/17 13:45 (Senokot) 17.2 mg Q12H PRN PO 02/04/17 13:45 (Dulcolax Supp) 10 mg DAILY PRN RECTAL 02/04/17 13:45 (Lactulose Liq) 30 ml DAILY PRN PO 02/04/17 13:45 (Flomax) 0.4 mg DAILY PO 02/06/17 09:00 UNV (Neurontin) 300 mg TID PO 02/05/17 13:00 UNV (Tears Naturale Opth Soln) 1 drop Q8HR EACH EYE 02/05/17 14:00 UNV (Miralax) 17 gm ONCE ONCE PO 02/05/17 09:30 02/05/17 09:31 UNV (Miralax) 17 gm DAILY PO 02/06/17 09:00 UNV (Bactroban Nasal 2% Oint) 1 applic Taper BID EACH NARE 02/05/17 21:00 02/01/18 20:59 UNV Family History History of hypertension and diabetes in both parents. . Substance Use Tobacco: Unknown if patient actively smokes. Patient previously smoked 1.5 PPD Alcohol: None known Prescription med abuse: None known Illicits: None known . Psychosocial History Patient has been living in a chcf since 2013. Prior to that he lived independently at home. He is retired. 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 He is not and has no children. . Spiritual/Cultural Factors Moravian morena . Health Care Surrogate: Copy in medical record Date completed: 10/10/2016 . Health Care Surrogate(s): Patient has designated his brother, Micah Milian, as his health surrogate decision maker. . Documented care wishes: No document of care wishes have been completed. . Today's verbally stated goals: Patient is unable to verbalize medical treatment goals due to this clinical condition, currently intubated in tolerating CPAP trials. Palliative care was consulted on Mr. Milian in January,. At that time living will and health care surrogate documents were offered to the patient and their purpose was explained, the patient did not wish to complete the forms at that time. He has since designated his brother as his healthcare surrogate decision maker. . Family/friends goals: Patient's brother states his brother has become increasingly withdrawn and his appetite has decreased in recent months. He feels his brother has given up, but he doesn't feel comfortable making any decisions about his brothers medical treatment goals unless he has to. He hopes his brother will become more alert, and would like the patient to complete a living will. Palliative care will help facilitate this conversation. . Ethical and Legal Issues No known ethical or legal issues at this time. . Physical Exam Vital Signs Date Time Temp Pulse Resp B/P (MAP) Pulse Ox O2 Delivery O2 Flow Rate FiO2 02/05/17 09:33 99 35 02/05/17 09:33 35 02/05/17 06:00 75 02/05/17 04:11 100 35 02/05/17 04:00 35 02/05/17 04:00 98.2 77 7 105/57 (73) 100 02/05/17 04:00 77 02/05/17 02:00 80 02/05/17 01:18 97 35 02/05/17 00:00 98.5 77 11 98/50 (66) 100 02/05/17 00:00 77 02/05/17 00:00 35 02/04/17 22:18 100 35 02/04/17 22:00 79 02/04/17 20:15 35 02/04/17 20:15 96 35 02/04/17 20:00 97.9 90 19 92/50 (64) 97 02/04/17 20:00 35 02/04/17 20:00 90 02/04/17 18:03 78 02/04/17 17:07 100 35 02/04/17 16:00 79 02/04/17 16:00 98.4 79 15 99/52 (68) 100 02/04/17 16:00 35 02/04/17 15:50 35 02/04/17 15:28 35 02/04/17 15:28 100 35 02/04/17 13:05 100 35 02/04/17 12:10 98.9 72 15 92/51 (65) 100 02/04/17 12:09 35 02/04/17 12:00 72 . Exam CONSTITUTIONAL/GENERAL: This is a chronically ill [place] [facility] [place] toler[place] CPAP trials TUBES/LINES/DRAINS: PIV 2, ETT, OGT, soft restraints, condom catheter SKIN: Ecchymoses on upper extremities. Skin temperature appropriate. Not diaphoretic. HEAD: Atraumatic. Normocephalic. EYES: Pupils equal and round and reactive. No scleral icterus. No injection or drainage. Fundi not examined. ENT: Hearing grossly normal. Nose without bleeding or purulent drainage. NECK: Trachea midline. Supple, nontender. No palpable thyroid enlargement or nodularity. CARDIOVASCULAR: Regular rate and rhythm without murmurs, gallops, or rubs. No JVD. Peripheral pulses symmetric. RESPIRATORY/CHEST: Remains intubated, tolerating CPAP trials this morning. Breath sounds diminished bilaterally GASTROINTESTINAL: Abdomen soft, non-tender, nondistended. Bowel sounds present. GENITOURINARY: Without palpable bladder distension. Condom catheter in place, draining renata urine. MUSCULOSKELETAL: Previous left BKA, right lower extremity with dressing C/D/I. LYMPHATICS: No palpable cervical or supraclavicular adenopathy. NEUROLOGICAL: Opens eyes briefly to verbal stimuli, Coretta follows commands. + cough. + Tach. PSYCHIATRIC: Unable to assess due to patient's clinical condition. . Diagnostic Tests Laboratory Laboratory Tests Test 02/02/17 17:53 02/03/17 03:42 02/03/17 14:00 02/03/17 21:47 Potassium Level 3.3 MEQ/L (3.5-5.1) 3.0 MEQ/L (3.5-5.1) 3.4 MEQ/L (3.5-5.1) Magnesium Level 2.5 MG/DL (1.5-2.5) White Blood Count 9.5 TH/MM3 (4.0-11.0) Red Blood Count 2.55 MIL/MM3 (4.50-5.90) Hemoglobin 8.1 GM/DL (13.0-17.0) Hematocrit 24.7 % (39.0-51.0) Mean Corpuscular Volume 96.8 FL (80.0-100.0) Mean Corpuscular Hemoglobin 31.6 PG (27.0-34.0) Mean Corpuscular Hemoglobin Concent 32.6 % (32.0-36.0) Red Cell Distribution Width 17.4 % (11.6-17.2) Platelet Count 184 TH/MM3 (150-450) Mean Platelet Volume 8.4 FL (7.0-11.0) Prothrombin Time 12.4 SEC (9.8-11.6) Prothromb Time International Ratio 1.1 RATIO Activated Partial Thromboplast Time 36.4 SEC (24.3-30.1) Blood Urea Nitrogen 25 MG/DL (7-18) Creatinine 1.08 MG/DL (0.60-1.30) Random Glucose 70 MG/DL (74-106) Calcium Level 8.2 MG/DL (8.5-10.1) Sodium Level 137 MEQ/L (136-145) Chloride Level 91 MEQ/L (98-107) Carbon Dioxide Level 32.7 MEQ/L (21.0-32.0) Anion Gap 13 MEQ/L (5-15) Estimat Glomerular Filtration Rate 68 ML/MIN (>89) Blood Gas Puncture Site LT RADIAL Blood Gas Patient Temperature 98.6 Blood Gas HCO3 29 mmol/L (22-26) Blood Gas Base Excess 5.8 mmol/L (-2-2) Blood Gas Oxygen Saturation 97 % (90-100) Arterial Blood pH 7.50 (7.380-7.420) Arterial Blood Partial Pressure CO2 38 mmHg (38-42) Arterial Blood Partial Pressure O2 184 mmHg (61-120) Arterial Blood Oxygen Content 13.6 Vol % (12.0-20.0) Arterial Blood Carboxyhemoglobin 2.3 % (0-4) Arterial Blood Methemoglobin 0.8 % (0-2) Blood Gas Hemoglobin 9.7 G/DL (12.0-16.0) Oxygen Delivery Device VENTILATOR Blood Gas Ventilator Setting AC15/500/PEEP5 Blood Gas Inspired Oxygen 35 % Test 02/04/17 05:14 02/05/17 03:37 White Blood Count 8.7 TH/MM3 (4.0-11.0) 8.9 TH/MM3 (4.0-11.0) Red Blood Count 2.61 MIL/MM3 (4.50-5.90) 2.59 MIL/MM3 (4.50-5.90) Hemoglobin 7.9 GM/DL (13.0-17.0) 7.9 GM/DL (13.0-17.0) Hematocrit 25.2 % (39.0-51.0) 25.0 % (39.0-51.0) Mean Corpuscular Volume 96.4 FL (80.0-100.0) 96.5 FL (80.0-100.0) Mean Corpuscular Hemoglobin 30.2 PG (27.0-34.0) 30.5 PG (27.0-34.0) Mean Corpuscular Hemoglobin Concent 31.3 % (32.0-36.0) 31.6 % (32.0-36.0) Red Cell Distribution Width 17.0 % (11.6-17.2) 17.3 % (11.6-17.2) Platelet Count 178 TH/MM3 (150-450) 169 TH/MM3 (150-450) Mean Platelet Volume 7.6 FL (7.0-11.0) 7.7 FL (7.0-11.0) Prothrombin Time 14.3 SEC (9.8-11.6) 16.8 SEC (9.8-11.6) Prothromb Time International Ratio 1.3 RATIO 1.5 RATIO Activated Partial Thromboplast Time 40.4 SEC (24.3-30.1) 48.5 SEC (24.3-30.1) Blood Urea Nitrogen 24 MG/DL (7-18) 25 MG/DL (7-18) Creatinine 0.94 MG/DL (0.60-1.30) 0.96 MG/DL (0.60-1.30) Random Glucose 85 MG/DL (74-106) 141 MG/DL (74-106) Calcium Level 8.1 MG/DL (8.5-10.1) 8.3 MG/DL (8.5-10.1) Phosphorus Level 1.7 MG/DL (2.5-4.9) 2.1 MG/DL (2.5-4.9) Magnesium Level 2.4 MG/DL (1.5-2.5) 2.3 MG/DL (1.5-2.5) Sodium Level 138 MEQ/L (136-145) 138 MEQ/L (136-145) Potassium Level 3.6 MEQ/L (3.5-5.1) 3.6 MEQ/L (3.5-5.1) Chloride Level 97 MEQ/L (98-107) 98 MEQ/L (98-107) Carbon Dioxide Level 31.0 MEQ/L (21.0-32.0) 33.8 MEQ/L (21.0-32.0) Anion Gap 10 MEQ/L (5-15) 6 MEQ/L (5-15) Estimat Glomerular Filtration Rate 80 ML/MIN (>89) 78 ML/MIN (>89) . Result Diagram: 02/05/17 0337 02/05/17 0337 Imaging Last 72 hours Impressions Chest X-Ray 02/05/17 0600 Signed Impressions: Service Date/Time: Sunday, February 05, 2017 03:18 - CONCLUSION: Stable chest x-ray with right lung interstitial changes. Bret Lizama MD Chest X-Ray 02/04/17 0600 Signed Impressions: Service Date/Time: Saturday, February 04, 2017 03:51 - CONCLUSION: Diffuse pulmonary vascular prominence. ET tube is in good position. Wes Kaiser MD Chest X-Ray 02/03/17 0000 Signed Impressions: Service Date/Time: Friday, February 03, 2017 13:22 - CONCLUSION: Significantly improved exam with resolution of bilateral airspace opacities and pleural fluid. Stable endotracheal tube and orogastric tubing. Sonja Bolton MD . Procedures 01/29/17: Intubation 01/29/17: OGT placement . Patient/Family Conference Present at Family Conference: Spoke to patient's brother via telephone. . Family Conference Location: Bedside, Telephone Issues Discussed: * Palliative care role, purpose, approach * Additional medical, psychosocial, and spiritual history * Patients general health, functional status, and cognitive changes in the months leading up to the current hospitalization * Patient/family understanding of the current medical problems * Patient/family understanding of prognosis * Patients goals of care as best understood from advance directives and/or conversations and/or values * Current medical treatment options and benefits/burdens of those options * Likely scenarios comparing ongoing aggressive care with a transition to comfort measures only * Questions answered to the best of my ability * Palliative care contact information provided . Assessment and Plan Disease Oriented Problem List: (1) History of left above knee amputation (2) DM (diabetes mellitus) (3) Acute systolic (congestive) heart failure Comment: Echocardiogram in 2016: EF 50-55% Echocardiogram in 11/2016: EF 35-40%. Moderate LVH. Global LV dysfunction. PAP 40-50 cm H2O (4) Afib (5) Elevated troponin I level Comment: Resolved (6) Anticoagulated by anticoagulation treatment (7) PVD (peripheral vascular disease) (8) Pulmonary edema (9) Wound of lower extremity Comment: Right heel ulcer, unstageable. Right lower extremity ulceration. Wound care following: Currently oil emulsion gauze with wet-to-dry dressing changes daily. Symptom Scale: (1) Debility (2) Pain (3) Dyspnea Pertinent Non-Medical Issues Psychosocial:Patient has been living in a chcf since 2013. Prior to that he lived independently at home. He is retired. 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 He is not and has no children. Spiritual: Moravian morena Legal:Patient has designated his brother, Micah Milian, as his health surrogate decision maker. Ethical issues impacting care: No known ethical issues impacting care at this time. . Important Contacts Meng Milian, brother/HCS: [phone] Oz Tinoco, friend: [phone] . Prognosis Patient is a 66-year-old male with a complex medical history who has been hospitalized 4 times in the past 8 months. Status post left BKA with nonhealing wounds on the right lower extremity. Per vascular surgery, patient is not a surgical candidate. Recommendations for right BKA, although it is unclear if he would have adequate healing without improvement in circulation. Patient was admitted with acute respiratory failure in November, and again in January,. He is fairly deconditioned and dependent for all ADLs. Patient is at high risk for ongoing complications and recurrent hospitalizations. Patient is certainly hospice appropriate if/when his medical treatment goals become comfort oriented. . Code Status: Full Code Plan * FULL CODE * Decision-making: Patient has designated his brother, Micah Milian, as his health surrogate decision maker. * Goals: Aggressive * Patient is unable to verbalize medical treatment goals due to this clinical condition, currently intubated in tolerating CPAP trials. Palliative care was consulted on Mr. Milian in January,. At that time living will and health care surrogate documents were offered to the patient and their purpose was explained, the patient did not wish to complete the forms at that time. He has since designated his brother as his healthcare surrogate decision maker. Patient 's brother states his brother has become increasingly withdrawn and his appetite has decreased in recent months. He feels his brother has given up, but he doesn't feel comfortable making any decisions about his brothers medical treatment goals unless he has to. He hopes his brother will become more alert, and would like the patient to complete a living will. Palliative care will help facilitate this conversation. * Palliative care spoke to patient's brother, Micah Milian, via telephone. Palliative care team was introduced and contact information was provided. . To help prompt me to consider important information that might be impacting today's encounter and assessment, information from prior notes written by myself or my colleagues may have been "brought forward" into today's note. My signature on this note, however, is an attestation that I personally performed the exam, history, and/or decision-making noted today, and, unless otherwise indicated, the interactions with patient, family, and staff as well as the review of records all occurred today. I also attest that the listed assessment and stated plan reflect my best clinical judgment today based on the combination of historical information, prior notes, and today's exam/ interactions. When time spent is documented, it refers only to time spent today by the signer, or if indicated, combined time spent today by collaborating physician/nurse practitioner.Thank you for the opportunity to participate in the care of Mr. Milian. . Attestation To help prompt me to consider important information that might be impacting today's encounter and assessment, information from prior notes written by myself or my colleagues may have been "brought forward" into today's note. My signature on this note, however, is an attestation that I personally performed the exam, history, and/or decision-making noted today, and, unless otherwise indicated, the interactions with patient, family, and staff as well as the review of records all occurred today. I also attest that the listed assessment and stated plan reflect my best clinical judgment today based on the combination of historical information, prior notes, and today's exam/ interactions. When time spent is documented, it refers only to time spent today by the signer, or if indicated, combined time spent today by collaborating physician/nurse practitioner. . Mercy Purdy Feb 05, 2017 11:31
[2017-02-05] MEDS: GABAPENTIN 300 MG CAP PO SCH ×2 (12:27→17:54)
[2017-02-05] MEDS: ARTIFICIAL TEARS OPTH SOLN 15 ML BTL EACH EYE SCH ×2 (13:49→20:20)
[2017-02-05] MEDS: WARFARIN SOD 6 MG TAB PO SCH (15:29)
[2017-02-05] MEDS: MELATONIN 5 MG TAB PO SCH (20:19)
[2017-02-05] MEDS: MUPIROCIN 2% OINT 1 APPLIC/GM SYR EACH NARE SCH (20:19)
[2017-02-05] MEDS: CHLORHEXIDINE GLUCONATE 2 % 1 PACK (2 CLOTHS) TOP SCH (23:40)
[2017-02-06] VITALS (25 sets, daily range): BP systolic 89–99; BP diastolic 51–55; PULSE 71–90; RESP 7–19; TEMP 98.2–99.7; O2SAT 100
[2017-02-06] MEDS: INSULIN NovoLIN REGULAR SUPPLEMENTAL SCALE SQ SCH ×6 (04:00→23:35)
--- NOTE | 2017-02-06 04:30 | RADRPT ---
EXAM DATE/TIME: 02/06/2017 03:13 [place] COMPARISON: CHEST SINGLE AP, February 05, 2017, 3:18. INDICATIONS : Short of breath. MEDICAL HISTORY : Cardiovascular disease. Chronic obstructive pulmonary disease. SURGICAL HISTORY : None. ENCOUNTER: Subsequent ACUITY: 1 week PAIN SCORE: 0/10 LOCATION: Bilateral chest FINDINGS: Portable AP view of the chest demonstrates a normal-sized cardiac silhouette. ETT and nasogastric tub e remain present. Lungs are underinflated and there are interstitial opacities bilaterally, right gre ater than left. No pneumothorax or pleural effusion is visualized. CONCLUSION: Stable chest x-ray with unchanged interstitial opacities on the right. Bret Lizama MD on February 06, 2017 at 4:28 Board Certified Radiologist. This report was verified electronically.
[2017-02-06] MEDS: ARTIFICIAL TEARS OPTH SOLN 15 ML BTL EACH EYE SCH ×3 (04:48→20:17)
[2017-02-06 06:54] LABS: INTERNATIONAL NORMALIZED RATIO 1.7 RATIO; PROTHROMBIN TIME - PATIENT 18.7 SEC (9.8-11.6)
[2017-02-06 06:55] LABS: AUTOMATED NEUTROPHIL # 5.9 TH/MM3 (1.8-7.7); BASOPHIL % 0.6 % (0.0-2.0); EOSINOPHIL # 0.1 TH/MM3 (0-0.4); EOSINOPHIL % 1.6 % (0.0-4.0); HEMO FLAGS DIFF FINAL; LYMPH % 11.3 % (9.0-44.0); LYMPHOCYTE # 0.9 TH/MM3 (1.0-4.8); MEAN CELL VOLUME 95.8 FL (80.0-100.0); MEAN CORPUSCULAR HEMOGLOBIN 31.2 PG (27.0-34.0); MEAN CORPUSCULAR HGB CONC 32.6 % (32.0-36.0); NEUT % 75.5 % (16.0-70.0); PLATELET COUNT 154 TH/MM3 (150-450); RED BLOOD COUNT 2.51 MIL/MM3 (4.50-5.90); RED CELL DISTRIBUTION WIDTH 17.4 % (11.6-17.2); WHITE BLOOD COUNT 7.8 TH/MM3 (4.0-11.0)
[2017-02-06 07:37] LABS: ALT (GPT) 15 U/L (12-78); ANION GAP 6 MEQ/L (5-15); AST (GOT) 14 U/L (15-37); BICARBONATE 34.7 MEQ/L (21.0-32.0); BLOOD UREA NITROGEN 26 MG/DL (7-18); CHLORIDE 99 MEQ/L (98-107); GLOMERULAR FILTRATION RATE 78 ML/MIN (>89); MAGNESIUM 2.6 MG/DL (1.5-2.5); POTASSIUM 3.8 MEQ/L (3.5-5.1); SODIUM (NA) 140 MEQ/L (136-145)
[2017-02-06 07:54] LABS: ALKALINE PHOSPHATASE 68 U/L (45-117); TOTAL BILIRUBIN ADULT 0.5 MG/DL (0.2-1.0)
[2017-02-06] MEDS: DOCUSATE SODIUM 50 MG/SENNA 8.6 MG TAB PO SCH ×2 (07:56→20:17)
[2017-02-06] MEDS: GABAPENTIN 300 MG CAP PO SCH ×3 (07:56→17:07)
[2017-02-06] MEDS: MUPIROCIN 2% OINT 1 APPLIC/GM SYR EACH NARE SCH ×2 (07:56→20:17)
[2017-02-06] MEDS: POLYETHYLENE GLYCOL 17 GM PKG PO SCH (07:56)
[2017-02-06] MEDS: PANTOPRAZOLE SODIUM 40 MG VIAL IV SCH (07:56)
[2017-02-06] MEDS: TAMSULOSIN HCL 0.4 MG CAP PO SCH (07:56)
[2017-02-06] MEDS: CHLORHEXIDINE 0.12% (ORAL KIT) 15 ML CUP MT SCH ×2 (08:00→20:16)
[2017-02-06] MEDS: COLLAGENASE OINT 30 GM TUBE TOPICAL SCH (09:08)
--- NOTE | 2017-02-06 10:07 | HHI.CCPN ---
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 He represents today with worsening shortness of breath. Per the emergency department note he denied cough, fever, chills. He rapidly decompensated and the emergency department requiring intubation mechanical ventilation. His chest x-ray is suggestive of bilateral significant pulmonary edema. His BNP is severely elevated at greater than 1900. Unfortunately on my evaluation the patient is intubated and sedated and cannot provide any additional history. He is admitted to the ICU with severe CHF exacerbation. 01/30: failed SBT this AM for tachypnea and hypoxia. ABG with persistence of hypercarbic respiratory failure. bumex drip started last night and patient made > 1L urine. Cr stable this AM. Trop trended up slightly to 0.3 and now downtrending to 0.24. well-controlled sedation on fentanyl alone. patient somnolent but arousable. no complaints. 01/31: much improved diuresis yesterday with > 4L uop. plan to repeat SBT today. trop downtrending. INR remains elevated at 4. 02/01: continues to diurese well with net negative 4.7L/24h. Cr at baseline. failed SBT yesterday again for tachypnea. INR down to 1.8 from 4. still very somnolent. bumex held overnight and had to receive ivf overnight for hypotension and tachycardia. awake, but not following commands. 02/02: seen and evaluated around 07:30am. delayed note entry. failed SBT today for mental status. persistently hypoactive delirium. opens eyes but will not follow commands, no cough on command. but moves all extremities, purposeful. delirious but not agitated. 02/03: GCS 11 T. CPAP trials failed. Following commands. Denies pain at this time. Chest x-ray pending.INR 1.1. Since being transitioned on Lovenox for therapeutic INR goal 2-3. 02/04: No acute events overnight. The patient remained on CPAP for greater than 2 hours. Pt remains GCS 11T. 02/05: Currently on ACV. 5 hours PSV trial yesterday. Off all sedation. Arousable and follows simple commands. Tolerating tube feeding. No bowel movement. Subjective: 02/06: Currently on PSV trial. Lasted several hours yesterday. Off all sedation. Failed weaning priors. Will need tracheostomy. Continues to be full code. Objective Vital Signs Date Time Temp Pulse Resp B/P (MAP) Pulse Ox O2 Delivery O2 Flow Rate FiO2 02/06/17 08:20 35 02/06/17 08:13 100 02/06/17 06:00 75 02/06/17 04:00 99.3 7 99/53 (68) Intake and Output 02/06/17 02/06/17 02/07/17 08:00 16:00 00:00 Intake Total 764 ml Output Total 325 ml Balance 439 ml Result Diagram: 02/06/1762802/06/17628 Imaging Last Impressions Chest X-Ray 02/06/17599 Signed Impressions: Service Date/Time: Monday, February 06, 2017 03:13 - CONCLUSION: Stable chest x-ray with unchanged interstitial opacities on the right. Bret Lizama MD Objective Remarks GENERAL: 58-year-old male, critically ill currently orotracheally intubated HEENT: Normocephalic. Atraumatic. Pupils equal, round, reactive, conjugate. Mucous membranes are moist and pink. Oral pharynx without erythema or thrush NECK: Trachea is midline. No JVD. Supple. CHEST: Bilateral coarse crackles appreciated. No wheezing. CARDIOVASCULAR: RRR. S1, S2 no S4 without murmur ABDOMEN: Soft, nontender, nondistended. Hypoactive bowel sounds are appreciated MUSCULOSKELETAL: Left [id number] amputation. Large right lower extremity wound with exposed tendon lateral aspect 182 cm. Stage IV right heel 4 centimeters by 3 cm decubitus ulcer. NEUROLOGICAL: GCS 11 T. positive gag. Positive corneal reflex. Intubated , following commands. Movement of extremities 4. A/P Assessment and Plan Neuro/Psych: Hypoactive delirium Insomnia Hard of hearing History of chronic pain syndrome Diabetes mellitus neuropathy Currently off fentanyl infusion . awake, but not following commands. melatonin 5 mill grams at bedtime when necessary for insomnia Continue gabapentin 300 mg 3 times a day for diabetic neuropathy Respiratory: Acute hypoxic respiratory failure- resolving secondary to acute on chronic diastolic heart failure. Pulmonary edema- resolved. ACV 15/500/5/35 Ventilator bundle Albuterol/ipratropium every 6 hours and albuterol every 2 hours. Dyspnea Spontaneous breathing trials daily Follow-up chest x-ray in a.m. Cardiovascular: Acute Systolic CHF exacerbation Non-ST elevation myocardial infarction-- type II secondary to demand ischemia- resolving. Elevated troponin- resolved. Moderate pulmonary hypertension Severe three-vessel coronary disease - not amenable to bypass or PCI - 2015 cardiology evaluation History of peripheral vascular disease History of atrial fibrillation -- troponins peaked at 0.32 then downtrended -- hold on further diuresis. goal euvolemic. On furosemide 40 mg by mouth daily at home with potassium supplementation Echocardiogram 2015 EF 50-55%. 11/25 EF 35-40%. Moderate LVH. Global LV dysfunction. PAP 40-50 cm H2O Holding home medication carvedilol 3.125 mg by mouth twice a day. Evaluated by vascular surgery 617 for right lower extremity ulceration. Very poor surgical candidate. Needs right lower extremity amputated. Refused in past. Not a candidate for CABG or PCI due to severe three-vessel coronary disease per previous CT surgery notes Renal/: BPH Continued tamsulosin 0.4 mg by mouth daily. -- continue Chase -- Strict I/Os - Creatinine currently within normal limits FEN/GI: Hypokalemia Acute intravascular volume overload- resolved. Gastroesophageal reflux disease --Currently on Glucerna 1.5 goal 60 cc an hour - Pantoprazole 40 mg daily for GI prophylaxis. On omeprazole 20 mg by mouth daily at home. Heme/ID: Coagulopathy Secondary to supratherapeutic INR on warfarin- resolved. 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 Currently 1.7 -- started warfarin daily 6 mg with pharmacy dosing 02/01. goal INR 2-3 for atrial fibrillation. -- bridge with Lovenox and milligrams SQ q12h until therapeutic again. Endocrine: Diabetes mellitus hyperglycemia -- SSI, medium scale, every 6 MSK: Right heel decubitus ulcer unstageable Right lower extremity ulceration Evaluated by wound care. Currently oil emulsion gauze daily. Wet-to-dry changes daily. Prophylaxis: GI Prophylaxis Pantoprazole DVT Prophylaxis -- SCDs --Warfarin/enoxaparin Access - Utilize peripheral IV. Central line if indicated Level II follow-up Patient will need tracheostomy. Plan for Kip Ho MD Feb 06, 2017 10:07
[2017-02-06] MEDS: ENOXAPARIN SODIUM 80 MG/0.8 ML SYRINGE SQ SCH ×2 (11:29→23:35)
[2017-02-06] MEDS ORDERED: POTASSIUM PHOSPHATE INJ 30 MMOL in SODIUM CHLOR 0.9% 250 ML INJ 250 ML IV ONE (12:00)
[2017-02-06] MEDS ORDERED: ALBUMIN HUMAN 25% 25 GM/100 ML BAGP IV ONE (13:45)
[2017-02-06] MEDS ORDERED: LACTATED RINGER'S 1000 ML INJ 1,000 ML IV ONE (13:45)
[2017-02-06] MEDS: RESP: ALBUTEROL 2.5 MG/IPRATROPIUM 0.5 MG NEB (SCH) NEB ×2 (15:47→19:59)
--- NOTE | 2017-02-06 16:07 | HHI.HCPN ---
Reason for visit a. To assist with evaluation and management of symptoms including: pain, dyspnea, debility b. To assist medical decision maker(s) with: better understanding of current medical conditions; weighing benefits/burdens of medical treatment options; making medical treatment decisions. . Subjective/Interval History Patient seen and assessed in room 506. He remains intubated, tolerating PSV trial. Patient lasted for several hours yesterday. Stable follow-up chest x- ray this morning with unchanged interstitial opacities on the right. Patient has failed weaning trails tediously and will need tracheostomy is goals remain aggressive. Patient has been off fentanyl infusion for > 48 hours. He will open eyes briefly to verbal stimuli but does not follow commands. Ammonia level of 26. Patient showing no non-verbal signs or symptoms of pain on exam. PRN Morphine is available q2 hours but has not been utilized. Tolerating artificial nutrition via OGT; Glucerna at 60 mL per hour with minimal residuals. Approximate weight loss of 75 pounds in the past 3 months. BMI: 25.4 Albumin: 2.0 Met with patient's brother/ HCS this afternoon in family conference room. Patient's sister (Leena) participated via conference call. Patient's brother describes an acute decline over the past several months with 4 hospitalizations since June,. He states his brother has become increasingly withdrawn and his appetite has decreased in recent months. He feels his brother has given up. Patient has been hospitalized with recurrent acute respiratory failure and recent left BKA. He has nonhealing wounds on his right lower extremity and recommendations were made for BKA, however patient is no longer a surgical candidate. Given patient's poor prognosis, the family has decided to compassionate withdrawal artificial life support tomorrow morning on 02/07/2017 stating they do not want to prolong their brother suffering a continuing aggressive interventions. Discussed with Dr. eCvallos who supports families decision. Advance Directives Health Care Surrogate: Copy in medical record Advance Directive Specifics Date completed: 10/10/2016 . Health Care Surrogate(s): Patient has designated his brother, Micah Milian, as his health surrogate decision maker. . Documented care wishes: No document of care wishes have been completed. . Significant change in goals: Plan to withdraw artificial life support tomorrow morning. CODE STATUS changed to NO CODE-DNR/DNI. . Objective Vital Signs Date Time Temp Pulse Resp B/P (MAP) Pulse Ox O2 Delivery O2 Flow Rate FiO2 02/06/17 14:00 75 02/06/17 12:00 98.2 76 19 89/52 (64) 100 02/06/17 12:00 76 02/06/17 12:00 35 02/06/17 10:52 100 35 02/06/17 10:00 77 02/06/17 08:20 35 02/06/17 08:13 100 35 02/06/17 08:00 99.7 77 15 94/54 (67) 100 02/06/17 08:00 77 02/06/17 08:00 35 02/06/17 06:00 75 02/06/17 04:45 100 35 02/06/17 04:00 74 02/06/17 04:00 35 02/06/17 04:00 99.3 74 7 99/53 (68) 100 02/06/17 03:30 76 02/06/17 03:00 78 02/06/17 02:30 74 02/06/17 02:00 71 02/06/17 01:45 100 35 02/06/17 00:00 35 02/06/17 00:00 99.4 72 19 98/55 (69) 100 02/06/17 00:00 74 02/05/17 23:00 78 02/05/17 23:00 78 19 96/54 (68) 100 02/05/17 22:30 79 02/05/17 22:30 79 19 96/55 (69) 100 02/05/17 22:00 70 20 95/53 (67) 100 02/05/17 22:00 70 02/05/17 21:30 75 16 99/50 (66) 100 02/05/17 21:30 75 02/05/17 21:00 74 15 97/54 (68) 100 02/05/17 21:00 74 02/05/17 20:30 82 9 103/51 (68) 100 02/05/17 20:30 82 02/05/17 20:00 35 02/05/17 20:00 99.7 75 15 103/50 (67) 100 02/05/17 20:00 75 02/05/17 19:45 100 35 02/05/17 18:00 84 02/05/17 16:00 72 02/05/17 16:00 97.6 74 15 96/54 (68) 100 02/05/17 16:00 35 Intake & Output 02/06/17 02/06/17 07:00 19:00 Intake Total 764 ml 999 ml Output Total 325 ml Balance 439 ml 999 ml Intake IV Total 999 ml Tube Feeding 614 ml Other 150 ml Output Urine Total 325 ml Physical Exam CONSTITUTIONAL/GENERAL: This is a chronically ill male currently intubated in the [facility] [place], tolerating PSV TUBES/LINES/DRAINS: PIV 2, ETT, OGT, soft restraints, condom catheter SKIN: Multiple ecchymoses on upper extremities. Skin temperature appropriate. Not diaphoretic. HEAD: Atraumatic. Normocephalic. EYES: Pupils equal and round and reactive. No scleral icterus. No injection or drainage. Fundi not examined. ENT: Hearing grossly normal. Nose without bleeding or purulent drainage. NECK: Trachea midline. Supple, nontender. No palpable thyroid enlargement or nodularity. CARDIOVASCULAR: Regular rate and rhythm without murmurs, gallops, or rubs. No JVD. Peripheral pulses symmetric. RESPIRATORY/CHEST: Remains intubated, tolerating PSV trials this morning. Breath sounds diminished bilaterally, coarse air exchange GASTROINTESTINAL: Abdomen soft, non-tender, nondistended. Bowel sounds present. GENITOURINARY: Without palpable bladder distension. Condom catheter in place.. MUSCULOSKELETAL: Previous left BKA, right lower extremity with dressing C/D/I. LYMPHATICS: No palpable cervical or supraclavicular adenopathy. NEUROLOGICAL: Opens eyes briefly to verbal stimuli, does not follows commands. + cough. + Tach. PSYCHIATRIC: Unable to assess due to patient's clinical condition. . Diagnostic Tests Laboratory Laboratory Tests Test 02/03/17 21:47 02/04/17 05:14 02/05/17 03:37 02/06/17 06:29 Potassium Level 3.4 MEQ/L (3.5-5.1) 3.6 MEQ/L (3.5-5.1) 3.6 MEQ/L (3.5-5.1) 3.8 MEQ/L (3.5-5.1) White Blood Count 8.7 TH/MM3 (4.0-11.0) 8.9 TH/MM3 (4.0-11.0) 7.8 TH/MM3 (4.0-11.0) Red Blood Count 2.61 MIL/MM3 (4.50-5.90) 2.59 MIL/MM3 (4.50-5.90) 2.51 MIL/MM3 (4.50-5.90) Hemoglobin 7.9 GM/DL (13.0-17.0) 7.9 GM/DL (13.0-17.0) 7.8 GM/DL (13.0-17.0) Hematocrit 25.2 % (39.0-51.0) 25.0 % (39.0-51.0) 24.0 % (39.0-51.0) Mean Corpuscular Volume 96.4 FL (80.0-100.0) 96.5 FL (80.0-100.0) 95.8 FL (80.0-100.0) Mean Corpuscular Hemoglobin 30.2 PG (27.0-34.0) 30.5 PG (27.0-34.0) 31.2 PG (27.0-34.0) Mean Corpuscular Hemoglobin Concent 31.3 % (32.0-36.0) 31.6 % (32.0-36.0) 32.6 % (32.0-36.0) Red Cell Distribution Width 17.0 % (11.6-17.2) 17.3 % (11.6-17.2) 17.4 % (11.6-17.2) Platelet Count 178 TH/MM3 (150-450) 169 TH/MM3 (150-450) 154 TH/MM3 (150-450) Mean Platelet Volume 7.6 FL (7.0-11.0) 7.7 FL (7.0-11.0) 7.9 FL (7.0-11.0) Prothrombin Time 14.3 SEC (9.8-11.6) 16.8 SEC (9.8-11.6) 18.7 SEC (9.8-11.6) Prothromb Time International Ratio 1.3 RATIO 1.5 RATIO 1.7 RATIO Activated Partial Thromboplast Time 40.4 SEC (24.3-30.1) 48.5 SEC (24.3-30.1) Blood Urea Nitrogen 24 MG/DL (7-18) 25 MG/DL (7-18) 26 MG/DL (7-18) Creatinine 0.94 MG/DL (0.60-1.30) 0.96 MG/DL (0.60-1.30) 0.96 MG/DL (0.60-1.30) Random Glucose 85 MG/DL (74-106) 141 MG/DL (74-106) 145 MG/DL (74-106) Calcium Level 8.1 MG/DL (8.5-10.1) 8.3 MG/DL (8.5-10.1) 8.2 MG/DL (8.5-10.1) Phosphorus Level 1.7 MG/DL (2.5-4.9) 2.1 MG/DL (2.5-4.9) 2.4 MG/DL (2.5-4.9) Magnesium Level 2.4 MG/DL (1.5-2.5) 2.3 MG/DL (1.5-2.5) 2.6 MG/DL (1.5-2.5) Sodium Level 138 MEQ/L (136-145) 138 MEQ/L (136-145) 140 MEQ/L (136-145) Chloride Level 97 MEQ/L (98-107) 98 MEQ/L (98-107) 99 MEQ/L (98-107) Carbon Dioxide Level 31.0 MEQ/L (21.0-32.0) 33.8 MEQ/L (21.0-32.0) 34.7 MEQ/L (21.0-32.0) Anion Gap 10 MEQ/L (5-15) 6 MEQ/L (5-15) 6 MEQ/L (5-15) Estimat Glomerular Filtration Rate 80 ML/MIN (>89) 78 ML/MIN (>89) 78 ML/MIN (>89) Neutrophils (%) (Auto) 75.5 % (16.0-70.0) Lymphocytes (%) (Auto) 11.3 % (9.0-44.0) Monocytes (%) (Auto) 11.0 % (0.0-8.0) Eosinophils (%) (Auto) 1.6 % (0.0-4.0) Basophils (%) (Auto) 0.6 % (0.0-2.0) Neutrophils # (Auto) 5.9 TH/MM3 (1.8-7.7) Lymphocytes # (Auto) 0.9 TH/MM3 (1.0-4.8) Monocytes # (Auto) 0.9 TH/MM3 (0-0.9) Eosinophils # (Auto) 0.1 TH/MM3 (0-0.4) Basophils # (Auto) 0.0 TH/MM3 (0-0.2) CBC Comment DIFF FINAL Differential Comment Total Protein 6.8 GM/DL (6.4-8.2) Albumin 2.0 GM/DL (3.4-5.0) Alkaline Phosphatase 68 U/L (45-117) Aspartate Amino Transf (AST/SGOT) 14 U/L (15-37) Alanine Aminotransferase (ALT/SGPT) 15 U/L (12-78) Total Bilirubin 0.5 MG/DL (0.2-1.0) Ammonia 26 MCMOL/L (11-32) . Result Diagram: 02/06/1762802/06/17628 Imaging Last 72 hours Impressions Chest X-Ray 02/06/17599 Signed Impressions: Service Date/Time: Monday, February 06, 2017 03:13 - CONCLUSION: Stable chest x-ray with unchanged interstitial opacities on the right. Bret Lizama MD Chest X-Ray 02/05/17599 Signed Impressions: Service Date/Time: Sunday, February 05, 2017 03:18 - CONCLUSION: Stable chest x-ray with right lung interstitial changes. Bret Lizama MD Chest X-Ray 02/04/17599 Signed Impressions: Service Date/Time: Saturday, February 04, 2017 03:51 - CONCLUSION: Diffuse pulmonary vascular prominence. ET tube is in good position. Wes Kaiser MD . Procedures 01/29/17: Intubation 01/29/17: OGT placement . Assessment and Plan Disease Oriented Problem List: (1) History of left above knee amputation (2) DM (diabetes mellitus) (3) Acute systolic (congestive) heart failure Comment: Echocardiogram in 2016: EF 50-55% Echocardiogram in 11/2016: EF 35-40%. Moderate LVH. Global LV dysfunction. PAP 40-50 cm H2O (4) Afib (5) Elevated troponin I level Comment: Resolved (6) Anticoagulated by anticoagulation treatment (7) PVD (peripheral vascular disease) (8) Pulmonary edema (9) Wound of lower extremity Comment: Right heel ulcer, unstageable. Right lower extremity ulceration. Wound care following: Currently oil emulsion gauze with wet-to-dry dressing changes daily. Symptom Scale: (1) Debility (2) Pain (3) Dyspnea Pertinent Non-Medical Issues Psychosocial:Patient has been living in a long term since 2013. Prior to that he lived independently at home. He is retired. 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 He is not and has no children. Spiritual: [employer] Legal:Patient has designated his brother, Micah Milian, as his health surrogate decision maker. Ethical issues impacting care: No known ethical issues impacting care at this time. . Important Contacts Meng Milian, brother/HCS: [phone] Oz Tinoco, friend: [phone] . Prognosis Patient is a 66-year-old male with a complex medical history who has been hospitalized 4 times in the past 8 months. Status post left BKA with nonhealing wounds on the right lower extremity. Per vascular surgery, patient is not a surgical candidate. Recommendations for right BKA, although it is unclear if he would have adequate healing without improvement in circulation. Patient was admitted with acute respiratory failure in November, and again in January,. He is fairly deconditioned and dependent for all ADLs. Patient is at high risk for ongoing complications and recurrent hospitalizations. Patient is certainly hospice appropriate if/when his medical treatment goals become comfort oriented. . Code Status: Full Code Plan * CODE STATUS changed to NO CODE-DNR/DNI per family request. * Environmental Remediation Specialist consult pending. * Decision-making: Patient has designated his brother, Micah Milian, as his health surrogate decision maker. * Plan to compassionate withdrawal of artificial life support artificial life support tomorrow morning 02/07/17 * Met with patient's brother/ HCS this afternoon in family conference room. Patient's sister (Leena) participated via conference call. Patient's brother describes an acute decline over the past several months with 4 hospitalizations since June,. He states his brother has become increasingly withdrawn and his appetite has decreased in recent months. He feels his brother has given up. Patient has been hospitalized with recurrent acute respiratory failure and recent left BKA. He has nonhealing wounds on his right lower extremity and recommendations were made for BKA, however patient is no longer a surgical candidate. Given patient's poor prognosis, the family has decided to compassionate withdrawal artificial life support tomorrow morning on 02/07/2017 stating they do not want to prolong their brother suffering a continuing aggressive interventions. * Discussed with Dr. Cevallos who supports families decision. Discussed with nurse Sr and Dr. Jimenez * Exhibits B and C are signed. Will place orders for comfort medication in the am. * Palliative care spoke to patient's brother, Micah Milian, via telephone. Palliative care team was introduced and contact information was provided. . Attestation To help prompt me to consider important information that might be impacting today's encounter and assessment, information from prior notes written by myself or my colleagues may have been "brought forward" into today's note. My signature on this note, however, is an attestation that I personally performed the exam, history, and/or decision-making noted today, and, unless otherwise indicated, the interactions with patient, family, and staff as well as the review of records all occurred today. I also attest that the listed assessment and stated plan reflect my best clinical judgment today based on the combination of historical information, prior notes, and today's exam/ interactions. When time spent is documented, it refers only to time spent today by the signer, or if indicated, combined time spent today by collaborating physician/nurse practitioner. . Mercy Purdy Feb 06, 2017 16:07
[2017-02-06] MEDS: WARFARIN SOD 6 MG TAB PO SCH (17:07)
[2017-02-06] MEDS: MELATONIN 5 MG TAB PO SCH (20:17)
[2017-02-07] VITALS (28 sets, daily range): BP systolic 79–103; BP diastolic 42–59; PULSE 67–114; RESP 0–28; TEMP 97.8–99.7; O2SAT 76–100
[2017-02-07] MEDS: RESP: ALBUTEROL 2.5 MG/IPRATROPIUM 0.5 MG NEB (SCH) NEB ×2 (03:55→08:37)
[2017-02-07] MEDS: CHLORHEXIDINE GLUCONATE 2 % 1 PACK (2 CLOTHS) TOP SCH (04:00)
[2017-02-07] MEDS: INSULIN NovoLIN REGULAR SUPPLEMENTAL SCALE SQ SCH ×2 (04:00→08:00)
[2017-02-07] MEDS: ARTIFICIAL TEARS OPTH SOLN 15 ML BTL EACH EYE SCH ×3 (04:38→20:30)
[2017-02-07 07:26] LABS: INTERNATIONAL NORMALIZED RATIO 1.9 RATIO; PROTHROMBIN TIME - PATIENT 21.3 SEC (9.8-11.6)
[2017-02-07 07:45] LABS: HEMATOCRIT 23.2 % (39.0-51.0); MEAN CELL VOLUME 97.7 FL (80.0-100.0); MEAN CORPUSCULAR HGB CONC 32.8 % (32.0-36.0); PLATELET COUNT 137 TH/MM3 (150-450); RED BLOOD COUNT 2.37 MIL/MM3 (4.50-5.90); RED CELL DISTRIBUTION WIDTH 17.5 % (11.6-17.2); REVIEW FLAG FINAL; WHITE BLOOD COUNT 7.6 TH/MM3 (4.0-11.0)
[2017-02-07 07:51] LABS: BICARBONATE 32.8 MEQ/L (21.0-32.0); MAGNESIUM 2.6 MG/DL (1.5-2.5); POTASSIUM 4.2 MEQ/L (3.5-5.1)
[2017-02-07] MEDS: MUPIROCIN 2% OINT 1 APPLIC/GM SYR EACH NARE SCH (08:13)
[2017-02-07] MEDS: PANTOPRAZOLE SODIUM 40 MG VIAL IV SCH (08:13)
[2017-02-07] MEDS: POLYETHYLENE GLYCOL 17 GM PKG PO SCH (08:13)
[2017-02-07] MEDS: GABAPENTIN 300 MG CAP PO SCH (08:14)
[2017-02-07] MEDS: CHLORHEXIDINE 0.12% (ORAL KIT) 15 ML CUP MT SCH (08:14)
[2017-02-07] MEDS: TAMSULOSIN HCL 0.4 MG CAP PO SCH (08:14)
[2017-02-07] MEDS: COLLAGENASE OINT 30 GM TUBE TOPICAL SCH (08:14)
[2017-02-07] MEDS: DOCUSATE SODIUM 50 MG/SENNA 8.6 MG TAB PO SCH (08:14)
--- NOTE | 2017-02-07 10:38 | HHI.HCPN ---
Reason for visit a. To assist with evaluation and management of symptoms including: pain, dyspnea, debility b. To assist medical decision maker(s) with: better understanding of current medical conditions; weighing benefits/burdens of medical treatment options; making medical treatment decisions. . Subjective/Interval History Patient's brother has brother states the patient has acutely decline over the past several months with 4 hospitalizations since June,. Patient's brother states he has become increasingly withdrawn in recent months and does not enjoy the things he used to enjoy like watching television, reading books and eating snacks. He feels his brother has given up. Patient has been hospitalized with recurrent acute respiratory failure and recent left BKA. He has nonhealing wounds on his right lower extremity and recommendations were made for BKA, however patient is no longer a surgical candidate. Given patient' s advanced age, multiple comorbid conditions, recent acute decline and overall poor prognosis, the family has decided to transition to comfort focus care stating they do not want to prolong their brother suffering any longer. Discussed with Dr. Cevallos supports the family's decision. Patient seen and assessed in room 506. Patient's brother and uncle were also at bedside. He remains intubated on mechanical ventilator. Plan for compassionate withdrawal of artificial life support later today. Exhibits B and C are signed and in patient's chart. Orders for comfort medications have been placed. Cruise Coordinator was consulted yesterday 02/06/17. Bodywork Therapist Andy was at the patient's bedside this morning providing ongoing support and prayers for comfort. . Advance Directives Health Care Surrogate: Copy in medical record Advance Directive Specifics Date completed: 10/10/2016 . Health Care Surrogate(s): Patient has designated his brother, Micah Milian, as his health surrogate decision maker. . Documented care wishes: No document of care wishes have been completed. . Significant change in goals: Compassionate withdrawal of artificial life support this afternoon. Signed exhibits are in the chart. Orders for comfort medications have been placed in the computer. . Objective Vital Signs Date Time Temp Pulse Resp B/P (MAP) Pulse Ox O2 Delivery O2 Flow Rate FiO2 02/07/17 10:00 79 02/07/17 09:30 77 02/07/17 09:30 77 16 95/53 (67) 100 02/07/17 09:00 76 6 96/55 (69) 100 02/07/17 09:00 76 02/07/17 08:30 83 6 101/59 (73) 100 02/07/17 08:30 83 02/07/17 08:30 100 35 02/07/17 08:00 71 02/07/17 08:00 35 02/07/17 08:00 99.7 71 4 93/50 (64) 100 02/07/17 07:30 68 2 97/53 (68) 100 02/07/17 07:30 68 02/07/17 07:00 80 4 99/54 (69) 100 02/07/17 07:00 80 02/07/17 06:00 71 02/07/17 04:11 100 35 02/07/17 04:00 99.2 74 9 95/52 (66) 100 02/07/17 04:00 74 02/07/17 04:00 35 02/07/17 02:00 80 02/07/17 01:09 100 35 02/07/17 00:00 85 02/07/17 00:00 35 02/07/17 00:00 98.9 85 18 103/59 (74) 100 02/06/17 22:09 100 35 02/06/17 22:00 83 02/06/17 21:30 84 02/06/17 21:00 87 02/06/17 20:30 85 02/06/17 20:00 99.7 85 18 91/53 (66) 100 02/06/17 20:00 35 02/06/17 20:00 85 02/06/17 19:52 100 35 02/06/17 18:00 90 02/06/17 16:00 98.3 82 10 93/51 (65) 100 02/06/17 16:00 82 02/06/17 16:00 35 02/06/17 15:47 100 35 02/06/17 14:00 75 02/06/17 12:00 98.2 76 19 89/52 (64) 100 02/06/17 12:00 76 02/06/17 12:00 35 02/06/17 10:52 100 35 Intake & Output 02/07/17 02/07/17 07:00 19:00 Intake Total 0 ml Output Total 300 ml Balance -300 ml Tube Feeding 0 ml Output Urine Total 300 ml . Physical Exam CONSTITUTIONAL/GENERAL: This is a chronically ill male currently intubated on mechanical ventilator TUBES/LINES/DRAINS: PIV 2, ETT, OGT, soft restraints, condom catheter SKIN: Multiple ecchymoses on upper extremities. Skin temperature appropriate. Not diaphoretic. HEAD: Atraumatic. Normocephalic. EYES: Pupils equal and round and reactive. No scleral icterus. No injection or drainage. Fundi not examined. ENT: Hearing grossly normal. Nose without bleeding or purulent drainage. NECK: Trachea midline. Supple, nontender. No palpable thyroid enlargement or nodularity. CARDIOVASCULAR: Regular rate and rhythm without murmurs, gallops, or rubs. No JVD. Peripheral pulses symmetric. RESPIRATORY/CHEST: Remains intubated on mechanical ventilator Breath sounds diminished bilaterally, coarse air exchange GASTROINTESTINAL: Abdomen soft, non-tender, nondistended GENITOURINARY: Without palpable bladder distension. Condom catheter in place.. MUSCULOSKELETAL: Previous left BKA, right lower extremity with dressing C/D/I. LYMPHATICS: No palpable cervical or supraclavicular adenopathy. NEUROLOGICAL: Opens eyes briefly to verbal stimuli. Intermittently follows simple commands. Lethargic. PSYCHIATRIC: Unable to assess due to patient's clinical condition. . Diagnostic Tests Laboratory Laboratory Tests Test 02/05/17 03:37 02/06/17 06:29 02/07/17 06:09 White Blood Count 8.9 TH/MM3 (4.0-11.0) 7.8 TH/MM3 (4.0-11.0) 7.6 TH/MM3 (4.0-11.0) Red Blood Count 2.59 MIL/MM3 (4.50-5.90) 2.51 MIL/MM3 (4.50-5.90) 2.37 MIL/MM3 (4.50-5.90) Hemoglobin 7.9 GM/DL (13.0-17.0) 7.8 GM/DL (13.0-17.0) 7.6 GM/DL (13.0-17.0) Hematocrit 25.0 % (39.0-51.0) 24.0 % (39.0-51.0) 23.2 % (39.0-51.0) Mean Corpuscular Volume 96.5 FL (80.0-100.0) 95.8 FL (80.0-100.0) 97.7 FL (80.0-100.0) Mean Corpuscular Hemoglobin 30.5 PG (27.0-34.0) 31.2 PG (27.0-34.0) 32.0 PG (27.0-34.0) Mean Corpuscular Hemoglobin Concent 31.6 % (32.0-36.0) 32.6 % (32.0-36.0) 32.8 % (32.0-36.0) Red Cell Distribution Width 17.3 % (11.6-17.2) 17.4 % (11.6-17.2) 17.5 % (11.6-17.2) Platelet Count 169 TH/MM3 (150-450) 154 TH/MM3 (150-450) 137 TH/MM3 (150-450) Mean Platelet Volume 7.7 FL (7.0-11.0) 7.9 FL (7.0-11.0) 8.6 FL (7.0-11.0) Prothrombin Time 16.8 SEC (9.8-11.6) 18.7 SEC (9.8-11.6) 21.3 SEC (9.8-11.6) Prothromb Time International Ratio 1.5 RATIO 1.7 RATIO 1.9 RATIO Activated Partial Thromboplast Time 48.5 SEC (24.3-30.1) Blood Urea Nitrogen 25 MG/DL (7-18) 26 MG/DL (7-18) 22 MG/DL (7-18) Creatinine 0.96 MG/DL (0.60-1.30) 0.96 MG/DL (0.60-1.30) 0.80 MG/DL (0.60-1.30) Random Glucose 141 MG/DL (74-106) 145 MG/DL (74-106) 93 MG/DL (74-106) Calcium Level 8.3 MG/DL (8.5-10.1) 8.2 MG/DL (8.5-10.1) 8.4 MG/DL (8.5-10.1) Phosphorus Level 2.1 MG/DL (2.5-4.9) 2.4 MG/DL (2.5-4.9) 3.5 MG/DL (2.5-4.9) Magnesium Level 2.3 MG/DL (1.5-2.5) 2.6 MG/DL (1.5-2.5) 2.6 MG/DL (1.5-2.5) Sodium Level 138 MEQ/L (136-145) 140 MEQ/L (136-145) 142 MEQ/L (136-145) Potassium Level 3.6 MEQ/L (3.5-5.1) 3.8 MEQ/L (3.5-5.1) 4.2 MEQ/L (3.5-5.1) Chloride Level 98 MEQ/L (98-107) 99 MEQ/L (98-107) 102 MEQ/L (98-107) Carbon Dioxide Level 33.8 MEQ/L (21.0-32.0) 34.7 MEQ/L (21.0-32.0) 32.8 MEQ/L (21.0-32.0) Anion Gap 6 MEQ/L (5-15) 6 MEQ/L (5-15) 7 MEQ/L (5-15) Estimat Glomerular Filtration Rate 78 ML/MIN (>89) 78 ML/MIN (>89) 96 ML/MIN (>89) Neutrophils (%) (Auto) 75.5 % (16.0-70.0) Lymphocytes (%) (Auto) 11.3 % (9.0-44.0) Monocytes (%) (Auto) 11.0 % (0.0-8.0) Eosinophils (%) (Auto) 1.6 % (0.0-4.0) Basophils (%) (Auto) 0.6 % (0.0-2.0) Neutrophils # (Auto) 5.9 TH/MM3 (1.8-7.7) Lymphocytes # (Auto) 0.9 TH/MM3 (1.0-4.8) Monocytes # (Auto) 0.9 TH/MM3 (0-0.9) Eosinophils # (Auto) 0.1 TH/MM3 (0-0.4) Basophils # (Auto) 0.0 TH/MM3 (0-0.2) CBC Comment DIFF FINAL Differential Comment Total Protein 6.8 GM/DL (6.4-8.2) Albumin 2.0 GM/DL (3.4-5.0) Alkaline Phosphatase 68 U/L (45-117) Aspartate Amino Transf (AST/SGOT) 14 U/L (15-37) Alanine Aminotransferase (ALT/SGPT) 15 U/L (12-78) Total Bilirubin 0.5 MG/DL (0.2-1.0) Ammonia 26 MCMOL/L (11-32) Result Diagram: 02/07/17 0609 02/07/17 0609 Imaging Last 72 hours Impressions Chest X-Ray 02/06/17 0600 Signed Impressions: Service Date/Time: Monday, February 06, 2017 03:13 - CONCLUSION: Stable chest x-ray with unchanged interstitial opacities on the right. Bret Lizama MD Chest X-Ray 02/05/17 0600 Signed Impressions: Service Date/Time: Sunday, February 05, 2017 03:18 - CONCLUSION: Stable chest x-ray with right lung interstitial changes. Bret Lizama MD . Procedures 01/29/17: Intubation 01/29/17: OGT placement . Assessment and Plan Disease Oriented Problem List: (1) History of left above knee amputation (2) DM (diabetes mellitus) (3) Acute systolic (congestive) heart failure Comment: Echocardiogram in 2016: EF 50-55% Echocardiogram in 11/2016: EF 35-40%. Moderate LVH. Global LV dysfunction. PAP 40-50 cm H2O (4) Afib (5) Elevated troponin I level Comment: Resolved (6) Anticoagulated by anticoagulation treatment (7) PVD (peripheral vascular disease) (8) Pulmonary edema (9) Wound of lower extremity Comment: Right heel ulcer, unstageable. Right lower extremity ulceration. Wound care following: Currently oil emulsion gauze with wet-to-dry dressing changes daily. Symptom Scale: (1) Debility (2) Pain (3) Dyspnea Pertinent Non-Medical Issues Psychosocial:Patient has been living in a usp since 2013. Prior to that he lived independently at home. He is retired. 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 He is not and has no children. Spiritual: Christian morena Legal:Patient has designated his brother, Micah Milian, as his health surrogate decision maker. Ethical issues impacting care: No known ethical issues impacting care at this time. . Important Contacts Meng Milian, brother/[facility]: [phone] Oz Tinoco, friend: [phone] . Prognosis Patient is a 66-year-old male with a complex medical history who has been hospitalized 4 times in the past 8 months. Status post left BKA with nonhealing wounds on the right lower extremity. Per vascular surgery, patient is not a surgical candidate. Recommendations for right BKA, although it is unclear if he would have adequate healing without improvement in circulation. Patient was admitted with acute respiratory failure in November, and again in January,. He is fairly deconditioned and dependent for all ADLs. Patient is at high risk for ongoing complications and recurrent hospitalizations. Patient is certainly hospice appropriate if/when his medical treatment goals become comfort oriented. . Code Status: Full Code Plan * CODE STATUS changed to NO CODE-DNR/DNI per family request. * Decision-making: Patient has designated his brother, Micah Milian, as his health surrogate decision maker. * Plan Compassionate withdrawal of artificial life support this afternoon. Signed exhibits are in the chart. Orders for comfort medications have been placed in the computer. * Cruise Coordinator was consulted yesterday 02/06/17. Bodywork Therapist Ozzy was at the patient' s bedside this morning providing ongoing support and prayers for comfort. * Patient's brother has brother states the patient has acutely decline over the past several months with 4 hospitalizations since June,. Patient's brother states he has become increasingly withdrawn in recent months and does not enjoy the things he used to enjoy like watching television, reading books and eating snacks. He feels his brother has given up. Patient has been hospitalized with recurrent acute respiratory failure and recent left BKA. He has nonhealing wounds on his right lower extremity and recommendations were made for BKA, however patient is no longer a surgical candidate. Given patient' s advanced age, multiple comorbid conditions, recent acute decline and overall poor prognosis, the family has decided to transition to comfort focus care stating they do not want to prolong their brother suffering any longer. Discussed with Dr. Cevallos supports the family's decision. * Discussed with patient's nurse, Niki. * Palliative care met with the patient's family at bedside this morning and will be present to provide ongoing support at the time of withdrawal. . . Attestation To help prompt me to consider important information that might be impacting today's encounter and assessment, information from prior notes written by myself or my colleagues may have been "brought forward" into today's note. My signature on this note, however, is an attestation that I personally performed the exam, history, and/or decision-making noted today, and, unless otherwise indicated, the interactions with patient, family, and staff as well as the review of records all occurred today. I also attest that the listed assessment and stated plan reflect my best clinical judgment today based on the combination of historical information, prior notes, and today's exam/ interactions. When time spent is documented, it refers only to time spent today by the signer, or if indicated, combined time spent today by collaborating physician/nurse practitioner. . Mercy Purdy Feb 07, 2017 10:38
[2017-02-07] MEDS ORDERED: ACETAMINOPHEN 650 MG SUPP RECTAL PRN (11:00)
--- NOTE | 2017-02-07 12:11 | HHI.CCPN ---
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 He represents today with worsening shortness of breath. Per the emergency department note he denied cough, fever, chills. He rapidly decompensated and the emergency department requiring intubation mechanical ventilation. His chest x-ray is suggestive of bilateral significant pulmonary edema. His BNP is severely elevated at greater than 1900. Unfortunately on my evaluation the patient is intubated and sedated and cannot provide any additional history. He is admitted to the ICU with severe CHF exacerbation. 01/30: failed SBT this AM for tachypnea and hypoxia. ABG with persistence of hypercarbic respiratory failure. bumex drip started last night and patient made > 1L urine. Cr stable this AM. Trop trended up slightly to 0.3 and now downtrending to 0.24. well-controlled sedation on fentanyl alone. patient somnolent but arousable. no complaints. 01/31: much improved diuresis yesterday with > 4L uop. plan to repeat SBT today. trop downtrending. INR remains elevated at 4. 02/01: continues to diurese well with net negative 4.7L/24h. Cr at baseline. failed SBT yesterday again for tachypnea. INR down to 1.8 from 4. still very somnolent. bumex held overnight and had to receive ivf overnight for hypotension and tachycardia. awake, but not following commands. 02/02: seen and evaluated around 07:30am. delayed note entry. failed SBT today for mental status. persistently hypoactive delirium. opens eyes but will not follow commands, no cough on command. but moves all extremities, purposeful. delirious but not agitated. 02/03: GCS 11 T. CPAP trials failed. Following commands. Denies pain at this time. Chest x-ray pending.INR 1.1. Since being transitioned on Lovenox for therapeutic INR goal 2-3. 02/04: No acute events overnight. The patient remained on CPAP for greater than 2 hours. Pt remains GCS 11T. 02/05: Currently on ACV. 5 hours PSV trial yesterday. Off all sedation. Arousable and follows simple commands. Tolerating tube feeding. No bowel movement. 02/06: Currently on PSV trial. Lasted several hours yesterday. Off all sedation. Failed weaning priors. Will need tracheostomy. Continues to be full code. Subjective: 02/07: Plan for withdrawal care today. Exhibits signed. Objective Vital Signs Date Time Temp Pulse Resp B/P (MAP) Pulse Ox O2 Delivery O2 Flow Rate FiO2 02/07/17 10:00 79 02/07/17 09:30 16 95/53 (67) 100 02/07/17 08:30 35 02/07/17 08:00 99.7 Intake and Output 02/07/17 02/07/17 02/08/17 08:00 16:00 00:00 Intake Total 0 ml Output Total 300 ml Balance -300 ml Result Diagram: 02/07/17 0609 02/07/17 0609 Imaging Last Impressions Chest X-Ray 02/06/17 0600 Signed Impressions: Service Date/Time: Monday, February 06, 2017 03:13 - CONCLUSION: Stable chest x-ray with unchanged interstitial opacities on the right. Bret Lizama MD Objective Remarks GENERAL: 58-year-old male, critically ill currently orotracheally intubated HEENT: Normocephalic. Atraumatic. Pupils equal, round, reactive, conjugate. Mucous membranes are moist and pink. Oral pharynx without erythema or thrush NECK: Trachea is midline. No JVD. Supple. CHEST: Bilateral coarse crackles appreciated. No wheezing. CARDIOVASCULAR: RRR. S1, S2 no S4 without murmur ABDOMEN: Soft, nontender, nondistended. Hypoactive bowel sounds are appreciated MUSCULOSKELETAL: Left [id number] amputation. Large right lower extremity wound with exposed tendon lateral aspect 182 cm. Stage IV right heel 4 centimeters by 3 cm decubitus ulcer. NEUROLOGICAL: GCS 11 T. positive gag. Positive corneal reflex. Intubated , following commands. Movement of extremities 4. A/P Assessment and Plan Neuro/Psych: Hypoactive delirium Insomnia Hard of hearing History of chronic pain syndrome Diabetes mellitus neuropathy Currently off fentanyl infusion . awake with eyes open, but not following commands. melatonin 5 mill grams at bedtime when necessary for insomnia Continue gabapentin 300 mg 3 times a day for diabetic neuropathy Respiratory: Acute hypoxic respiratory failure- resolving secondary to acute on chronic diastolic heart failure. Pulmonary edema- resolved. ACV 15/500/5/35 Ventilator bundle Albuterol/ipratropium every 6 hours and albuterol every 2 hours. Dyspnea Spontaneous breathing trials daily Cardiovascular: Acute Systolic CHF exacerbation Non-ST elevation myocardial infarction-- type II secondary to demand ischemia- resolving. Elevated troponin- resolved. Moderate pulmonary hypertension Severe three-vessel coronary disease - not amenable to bypass or PCI - 2015 cardiology evaluation History of peripheral vascular disease History of atrial fibrillation -- troponins peaked at 0.32 then downtrended -- hold on further diuresis. goal euvolemic. On furosemide 40 mg by mouth daily at home with potassium supplementation Echocardiogram 2015 EF 50-55%. 11/25 EF 35-40%. Moderate LVH. Global LV dysfunction. PAP 40-50 cm H2O Holding home medication carvedilol 3.125 mg by mouth twice a day. Evaluated by vascular surgery 617 for right lower extremity ulceration. Very poor surgical candidate. Needs right lower extremity amputated. Refused in past. Not a candidate for CABG or PCI due to severe three-vessel coronary disease per previous CT surgery notes Renal/: BPH Continued tamsulosin 0.4 mg by mouth daily. -- continue Chase -- Strict I/Os - Creatinine currently within normal limits FEN/GI: Hypokalemia Acute intravascular volume overload- resolved. Gastroesophageal reflux disease --Currently on Glucerna 1.5 goal 60 cc an hour. We'll discontinue today withdrawal of care. - Pantoprazole 40 mg daily for GI prophylaxis. On omeprazole 20 mg by mouth daily at home. Heme/ID: Coagulopathy Secondary to supratherapeutic INR on warfarin- resolved. 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 Currently 1.7 -- started warfarin daily 6 mg with pharmacy dosing 02/01. goal INR 2-3 for atrial fibrillation. -- bridge with Lovenox and milligrams SQ q12h until therapeutic again. Endocrine: Diabetes mellitus hyperglycemia -- SSI, medium scale, every 6 MSK: Right heel decubitus ulcer unstageable Right lower extremity ulceration Evaluated by wound care. Currently oil emulsion gauze daily. Wet-to-dry changes daily. Prophylaxis: GI Prophylaxis Pantoprazole DVT Prophylaxis -- SCDs --Warfarin/enoxaparin Access - Utilize peripheral IV. Central line if indicated Level II follow-up Plan for withdrawal of care. Initially 09:30 however will plan for 12:30 today. Kip Cevallos MD Feb 07, 2017 12:11
[2017-02-07] MEDS ORDERED: LORazepam 2 MG/ML VIAL IV ONE ×2 (12:30→13:00)
[2017-02-07] MEDS ORDERED: MORPHINE SULFATE 8 MG/ML INJ IV PUSH ONE (12:30)
[2017-02-07] MEDS ORDERED: HYOSCYAMINE 0.5 MG/ML AMP IV ONE (12:30)
[2017-02-07] MEDS ORDERED: MORPHINE SULFATE 8 MG/ML INJ IV PUSH PRN (13:00)
[2017-02-07] MEDS ORDERED: MORPHINE SULFATE 4 MG/ML INJ IV PRN (13:00)
[2017-02-07] MEDS ORDERED: LORazepam 2 MG/ML VIAL IV PRN ×2 (13:00)
[2017-02-07] MEDS ORDERED: LORazepam 2 MG/ML VIAL IVS PRN (13:00)
[2017-02-07] MEDS ORDERED: MORPHINE SULFATE 4 MG/ML INJ IV ONE (13:00)
[2017-02-07] MEDS ORDERED: HYOSCYAMINE 0.5 MG/ML AMP IV PRN (13:00)
[2017-02-07] MEDS ORDERED: FUROSEMIDE 20 MG/2 ML VIAL IV PRN (13:00)
[2017-02-07] MEDS: LORazepam 2 MG/ML VIAL IV SCH ×2 (17:20→20:29)
[2017-02-07] MEDS: MORPHINE SULFATE 4 MG/ML INJ IV SCH ×2 (17:21→20:30)
[2017-02-08] VITALS (12 sets, daily range): BP systolic 80; BP diastolic 35; PULSE 0–101; RESP 29; TEMP 102.6; O2SAT 89–90
[2017-02-08] MEDS: LORazepam 2 MG/ML VIAL IV SCH ×4 (00:23→12:54)
[2017-02-08] MEDS: MORPHINE SULFATE 4 MG/ML INJ IV SCH ×4 (00:24→12:53)
[2017-02-08] MEDS: ARTIFICIAL TEARS OPTH SOLN 15 ML BTL EACH EYE SCH ×2 (05:43→12:54)
--- NOTE | 2017-02-08 07:38 | HHI.CCPN ---
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 He represents today with worsening shortness of breath. Per the emergency department note he denied cough, fever, chills. He rapidly decompensated and the emergency department requiring intubation mechanical ventilation. His chest x-ray is suggestive of bilateral significant pulmonary edema. His BNP is severely elevated at greater than 1900. Unfortunately on my evaluation the patient is intubated and sedated and cannot provide any additional history. He is admitted to the ICU with severe CHF exacerbation. 01/30: failed SBT this AM for tachypnea and hypoxia. ABG with persistence of hypercarbic respiratory failure. bumex drip started last night and patient made > 1L urine. Cr stable this AM. Trop trended up slightly to 0.3 and now downtrending to 0.24. well-controlled sedation on fentanyl alone. patient somnolent but arousable. no complaints. 01/31: much improved diuresis yesterday with > 4L uop. plan to repeat SBT today. trop downtrending. INR remains elevated at 4. 02/01: continues to diurese well with net negative 4.7L/24h. Cr at baseline. failed SBT yesterday again for tachypnea. INR down to 1.8 from 4. still very somnolent. bumex held overnight and had to receive ivf overnight for hypotension and tachycardia. awake, but not following commands. 02/02: seen and evaluated around 07:30am. delayed note entry. failed SBT today for mental status. persistently hypoactive delirium. opens eyes but will not follow commands, no cough on command. but moves all extremities, purposeful. delirious but not agitated. 02/03: GCS 11 T. CPAP trials failed. Following commands. Denies pain at this time. Chest x-ray pending.INR 1.1. Since being transitioned on Lovenox for therapeutic INR goal 2-3. 02/04: No acute events overnight. The patient remained on CPAP for greater than 2 hours. Pt remains GCS 11T. 02/05: Currently on ACV. 5 hours PSV trial yesterday. Off all sedation. Arousable and follows simple commands. Tolerating tube feeding. No bowel movement. 02/06: Currently on PSV trial. Lasted several hours yesterday. Off all sedation. Failed weaning priors. Will need tracheostomy. Continues to be full code. 02/07: Plan for withdrawal care today. Exhibits signed. Subjective: 02/08: Extubated yesterday. Appears comfortable on room air. Objective Vital Signs Date Time Temp Pulse Resp B/P (MAP) Pulse Ox O2 Delivery O2 Flow Rate FiO2 02/08/17 06:00 62 02/07/17 19:15 97.8 18 79/42 (54) 86 02/07/17 13:04 Room Air 21 Intake and Output 02/08/17 02/08/17 02/09/17 08:00 16:00 00:00 Output Total 0 ml Balance 0 ml Result Diagram: 02/07/17 0609 02/07/17 0609 Imaging Last Impressions Chest X-Ray 02/06/17 0600 Signed Impressions: Service Date/Time: Monday, February 06, 2017 03:13 - CONCLUSION: Stable chest x-ray with unchanged interstitial opacities on the right. Bret Lizama MD Objective Remarks GENERAL: 58-year-old male, intubated and on room air HEENT: Normocephalic. Atraumatic. Pupils equal, round, reactive, conjugate. Mucous membranes are moist and pink. Oral pharynx without erythema or thrush NECK: Trachea is midline. No JVD. Supple. CHEST: Bilateral coarse crackles appreciated. No wheezing. CARDIOVASCULAR: RRR. S1, S2 no S4 without murmur ABDOMEN: Soft, nontender, nondistended. Hypoactive bowel sounds are appreciated MUSCULOSKELETAL: Left [id number] amputation. Large right lower extremity wound with exposed tendon lateral aspect 182 cm. Stage IV right heel 4 centimeters by 3 cm decubitus ulcer. NEUROLOGICAL: Eyes open to voice. Withdraws to stimulation. A/P Assessment and Plan Neuro/Psych: Hypoactive delirium Insomnia Hard of hearing History of chronic pain syndrome Diabetes mellitus neuropathy Acetaminophen per rectum for fever Lorazepam/morphine for pain management Respiratory: Acute hypoxic respiratory failure- resolving secondary to acute on chronic diastolic heart failure. Pulmonary edema- resolved. As needed albuterol therapy for dyspnea hyoscyamine when necessary for secretions Cardiovascular: Acute Systolic CHF exacerbation Non-ST elevation myocardial infarction-- type II secondary to demand ischemia- resolving. Elevated troponin- resolved. Moderate pulmonary hypertension Severe three-vessel coronary disease - not amenable to bypass or PCI - 2015 cardiology evaluation History of peripheral vascular disease History of atrial fibrillation Furosemide 20 mill grams IV every 6 hours when necessary volume overload Echocardiogram 2015 EF 50-55%. 11/25 EF 35-40%. Moderate LVH. Global LV dysfunction. PAP 40-50 cm H2O Evaluated by vascular surgery 617 for right lower extremity ulceration. Very poor surgical candidate. Needs right lower extremity amputated. Refused in past. Not a candidate for CABG or PCI due to severe three-vessel coronary disease per previous CT surgery notes Renal/: BPH Remove Chase catheter FEN/GI: Hypokalemia Acute intravascular volume overload- resolved. Gastroesophageal reflux disease Advance diet if patient tolerates Heme/ID: Coagulopathy Secondary to supratherapeutic INR on warfarin- resolved. 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 Currently oil emulsion gauze daily. Wet-to-dry changes daily. Prophylaxis: GI Prophylaxis Discontinued DVT Prophylaxis Discontinued due to's titer status Access - Utilize peripheral IV. Central line if indicated Level I follow-up Kip Cevallos MD Feb 08, 2017 07:38
--- NOTE | 2017-02-08 12:06 | HHI.HCPN ---
Reason for visit a. To assist with evaluation and management of symptoms including: pain, dyspnea, anxiety b. To assist medical decision maker(s) with: better understanding of current medical conditions; weighing benefits/burdens of medical treatment options; making medical treatment decisions. . Subjective/Interval History Patient seen and assessed in room in 506 s/p extubation yesterday. Also present , Juliana Courtney EXTENDER. Patient is non-responsive with PPS 10%. Patient is tachypneic, respirations are shallow. Oxygen saturations are in the 80s. Patient received the acetaminophen suppository this morning for elevated temperature of 102.6. Morphine and lorazepam are scheduled q4 hours: PRN morphine and lorazepam are also available. On exam, patient showing no signs or symptoms of pain/anxiety. Discussed with patient's nurse (Niki) and Dr. Cat. Spoke with patient brother (Meng) and later his sister (Leena) via telephone. They would like to consider hospice at this time, requesting transfer to [facility] for symptom management and end-of-life care. Order placed for hospice consult and spoke with Deepti at hospice intake. . Advance Directives Health Care Surrogate: Copy in medical record Advance Directive Specifics Date completed: 10/10/2016 . Health Care Surrogate(s): Patient has designated his brother, Micah Milian, as his health surrogate decision maker. . Documented care wishes: No document of care wishes have been completed. . Significant change in goals: Hospice consult pending. Family requesting transfer to [facility] for symptom management and end-of-life care. . Objective Vital Signs Date Time Temp Pulse Resp B/P (MAP) Pulse Ox O2 Delivery O2 Flow Rate FiO2 02/08/17 10:00 68 02/08/17 09:00 68 02/08/17 08:00 63 02/08/17 07:24 102.6 61 29 80/35 (50) 90 02/08/17 07:00 65 29 89 02/08/17 06:00 62 02/08/17 04:00 69 02/08/17 02:00 81 02/08/17 00:00 101 02/07/17 22:00 103 02/07/17 20:00 106 02/07/17 19:15 97.8 106 18 79/42 (54) 86 02/07/17 18:00 102 02/07/17 17:00 108 02/07/17 17:00 108 28 76 02/07/17 16:00 114 02/07/17 16:00 98.5 114 21 85 02/07/17 15:00 108 12 81 02/07/17 15:00 108 02/07/17 14:00 104 0 81 02/07/17 14:00 104 02/07/17 13:04 98 Room Air 21 02/07/17 13:00 67 3 100 02/07/17 13:00 67 02/07/17 12:30 76 02/07/17 12:30 76 12 91/50 (64) 100 02/07/17 12:00 99.2 71 15 90/53 (65) 100 02/07/17 12:00 71 02/07/17 12:00 35 02/07/17 11:30 75 02/07/17 11:30 75 15 95/54 (68) 100 Intake & Output 02/08/17 02/08/17 07:00 19:00 Output Total 0 ml Balance 0 ml Output Urine Total 0 ml # Bowel Movements 0 . Physical Exam CONSTITUTIONAL/GENERAL: This is an elderly male patient status post withdrawal of artificial life support on 02/07/17 TUBES/LINES/DRAINS: PIV 2, condom catheter SKIN: Multiple ecchymoses on upper extremities. Febrile. HEAD: Atraumatic. Normocephalic. EYES: Pupils equal and round, sluggish. No scleral icterus. ENT: Hearing grossly normal. Nose without bleeding or purulent drainage. NECK: Trachea midline. CARDIOVASCULAR: Regular rate and rhythm without murmurs, gallops, or rubs. No JVD. Peripheral pulses symmetric. RESPIRATORY/CHEST: Tachypneic with shallow respirations; breath sounds diminished bilaterally GASTROINTESTINAL: Abdomen soft, non-tender, nondistended GENITOURINARY: Without palpable bladder distension. Condom catheter in place MUSCULOSKELETAL: Previous left BKA, right lower extremity with dressing C/D/I. LYMPHATICS: No palpable cervical or supraclavicular adenopathy. NEUROLOGICAL: Unresponsive. PPS 10% PSYCHIATRIC: Unable to assess due to patient's clinical condition. . Diagnostic Tests Laboratory Laboratory Tests Test 02/06/17 06:29 02/07/17 06:09 White Blood Count 7.8 TH/MM3 (4.0-11.0) 7.6 TH/MM3 (4.0-11.0) Red Blood Count 2.51 MIL/MM3 (4.50-5.90) 2.37 MIL/MM3 (4.50-5.90) Hemoglobin 7.8 GM/DL (13.0-17.0) 7.6 GM/DL (13.0-17.0) Hematocrit 24.0 % (39.0-51.0) 23.2 % (39.0-51.0) Mean Corpuscular Volume 95.8 FL (80.0-100.0) 97.7 FL (80.0-100.0) Mean Corpuscular Hemoglobin 31.2 PG (27.0-34.0) 32.0 PG (27.0-34.0) Mean Corpuscular Hemoglobin Concent 32.6 % (32.0-36.0) 32.8 % (32.0-36.0) Red Cell Distribution Width 17.4 % (11.6-17.2) 17.5 % (11.6-17.2) Platelet Count 154 TH/MM3 (150-450) 137 TH/MM3 (150-450) Mean Platelet Volume 7.9 FL (7.0-11.0) 8.6 FL (7.0-11.0) Neutrophils (%) (Auto) 75.5 % (16.0-70.0) Lymphocytes (%) (Auto) 11.3 % (9.0-44.0) Monocytes (%) (Auto) 11.0 % (0.0-8.0) Eosinophils (%) (Auto) 1.6 % (0.0-4.0) Basophils (%) (Auto) 0.6 % (0.0-2.0) Neutrophils # (Auto) 5.9 TH/MM3 (1.8-7.7) Lymphocytes # (Auto) 0.9 TH/MM3 (1.0-4.8) Monocytes # (Auto) 0.9 TH/MM3 (0-0.9) Eosinophils # (Auto) 0.1 TH/MM3 (0-0.4) Basophils # (Auto) 0.0 TH/MM3 (0-0.2) CBC Comment DIFF FINAL Differential Comment Prothrombin Time 18.7 SEC (9.8-11.6) 21.3 SEC (9.8-11.6) Prothromb Time International Ratio 1.7 RATIO 1.9 RATIO Blood Urea Nitrogen 26 MG/DL (7-18) 22 MG/DL (7-18) Creatinine 0.96 MG/DL (0.60-1.30) 0.80 MG/DL (0.60-1.30) Random Glucose 145 MG/DL (74-106) 93 MG/DL (74-106) Total Protein 6.8 GM/DL (6.4-8.2) Albumin 2.0 GM/DL (3.4-5.0) Calcium Level 8.2 MG/DL (8.5-10.1) 8.4 MG/DL (8.5-10.1) Phosphorus Level 2.4 MG/DL (2.5-4.9) 3.5 MG/DL (2.5-4.9) Magnesium Level 2.6 MG/DL (1.5-2.5) 2.6 MG/DL (1.5-2.5) Alkaline Phosphatase 68 U/L (45-117) Aspartate Amino Transf (AST/SGOT) 14 U/L (15-37) Alanine Aminotransferase (ALT/SGPT) 15 U/L (12-78) Total Bilirubin 0.5 MG/DL (0.2-1.0) Sodium Level 140 MEQ/L (136-145) 142 MEQ/L (136-145) Potassium Level 3.8 MEQ/L (3.5-5.1) 4.2 MEQ/L (3.5-5.1) Chloride Level 99 MEQ/L (98-107) 102 MEQ/L (98-107) Carbon Dioxide Level 34.7 MEQ/L (21.0-32.0) 32.8 MEQ/L (21.0-32.0) Anion Gap 6 MEQ/L (5-15) 7 MEQ/L (5-15) Estimat Glomerular Filtration Rate 78 ML/MIN (>89) 96 ML/MIN (>89) Ammonia 26 MCMOL/L (11-32) . Result Diagram: 02/07/1760802/07/17 06 Imaging Last 72 hours Impressions Chest X-Ray 02/06/17 06 Signed Impressions: Service Date/Time: Matilde, February 06, 2017 03:13 - CONCLUSION: Stable chest x-ray with unchanged interstitial opacities on the right. Bret Lizama MD . Procedures 01/29/17: Intubation 01/29/17: OGT placement 02/07/17: Withdrawal of artificial life support . Assessment and Plan Disease Oriented Problem List: (1) History of left above knee amputation (2) DM (diabetes mellitus) (3) Acute systolic (congestive) heart failure Comment: Echocardiogram in 2016: EF 50-55% Echocardiogram in 11/2016: EF 35-40%. Moderate LVH. Global LV dysfunction. PAP 40-50 cm H2O (4) Afib (5) Elevated troponin I level Comment: Resolved (6) Anticoagulated by anticoagulation treatment (7) PVD (peripheral vascular disease) (8) Pulmonary edema (9) Wound of lower extremity Comment: Right heel ulcer, unstageable. Right lower extremity ulceration. Wound care following: Currently oil emulsion gauze with wet-to-dry dressing changes daily. Symptom Scale: (1) Pain (2) Dyspnea (3) Anxiety Pertinent Non-Medical Issues Psychosocial:Patient has been living in a shelter since 2013. Prior to that he lived independently at home. He is retired. 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 He is not and has no children. Spiritual: [employer] more[place] Legal:Patient has designated his brother, Micah Milian, as his health surrogate decision maker. Ethical issues impacting care: No known ethical issues impacting care at this time. . Important Contacts Meng Milian, brother/HCS: [phone] Oz Tinoco, friend: [phone] . Prognosis Patient is a 66-year-old male with a complex medical history who has been hospitalized 4 times in the past 8 months. Status post left BKA with nonhealing wounds on the right lower extremity. Per vascular surgery, patient is not a surgical candidate. Recommendations for right BKA, although it is unclear if he would have adequate healing without improvement in circulation. Patient was admitted with acute respiratory failure in November, and again in January,. He is fairly deconditioned and dependent for all ADLs. Patient is at high risk for ongoing complications and recurrent hospitalizations. Patient is certainly hospice appropriate if/when his medical treatment goals become comfort oriented. . Code Status: Full Code Plan * CODE STATUS changed to NO CODE-DNR/DNI per family request. * Decision-making: Patient has designated his brother, Micah Milian, as his health surrogate decision maker. * Status post compassionate withdrawal of artificial life support yesterday 02/07. * Spoke with patient brother (Meng) and later his sister (Leena) via telephone. They would like to consider hospice at this time, requesting transfer to [facility] for symptom management and end-of-life care. Order placed for hospice consult and spoke with Deepti at hospice intake. Approximately 60 minutes spent on the telephone clarifying goals and coordinating hospice consult. * Discussed with patient's nurse, Niki, and Dr. Cat. * Palliative care met with the patient's family at bedside this morning and will be present to provide ongoing support at the time of withdrawal. . . Attestation To help prompt me to consider important information that might be impacting today's encounter and assessment, information from prior notes written by myself or my colleagues may have been "brought forward" into today's note. My signature on this note, however, is an attestation that I personally performed the exam, history, and/or decision-making noted today, and, unless otherwise indicated, the interactions with patient, family, and staff as well as the review of records all occurred today. I also attest that the listed assessment and stated plan reflect my best clinical judgment today based on the combination of historical information, prior notes, and today's exam/ interactions. When time spent is documented, it refers only to time spent today by the signer, or if indicated, combined time spent today by collaborating physician/nurse practitioner. . . Mercy Purdy Feb 08, 2017 12:06
[2017-02-08] MEDS: COLLAGENASE OINT 30 GM TUBE TOPICAL SCH (12:54)
--- NOTE | 2017-03-01 07:09 | HHI.DS ---
Discharge Summary Admission Date Jan 29, 2017 at 12:20 Discharge Date: Feb 08, 2017 Admitting Diagnosis respiratory failure, chf, elevated tropoinin, diabetes, (1) Acute systolic (congestive) heart failure ICD Code: I50.21 - Acute systolic (congestive) heart failure Diagnosis: Principal Status: Acute (2) Elevated troponin I level ICD Code: R74.8 - Abnormal levels of other serum enzymes Diagnosis: Principal Status: Acute (3) Wound of lower extremity ICD Code: S81.809A - Wound of lower extremity Diagnosis: Principal Status: Acute (4) PVD (peripheral vascular disease) ICD Code: I73.9 - Peripheral vascular disease, unspecified Diagnosis: Principal Status: Acute (5) PAD (peripheral artery disease) ICD Code: I73.9 - PAD (peripheral artery disease) Diagnosis: Principal Status: Chronic (6) Diabetic foot ulcers ICD Code: E11.621 - Type 2 diabetes mellitus with foot ulcer; L97.509 - Non- pressure chronic ulcer of other part of unspecified foot with unspecified severity Diagnosis: Principal Status: Chronic (7) CHF (congestive heart failure) ICD Code: I50.9 - Heart failure, unspecified Diagnosis: Principal Status: Chronic (8) CAD (coronary artery disease) ICD Code: I25.10 - Atherosclerotic heart disease of [place] coronary artery without angina pectoris Diagnosis: Principal Status: Chronic (9) LFT elevation ICD Code: R79.89 - Other specified abnormal findings of blood chemistry Diagnosis: Principal Status: Acute (10) Acute renal failure ICD Code: N17.9 - Acute kidney failure, unspecified Diagnosis: Principal Status: Resolved Brief History This is a 66-year-old male with a history of hypertension, diabetes, COPD, 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 He represents today with worsening shortness of breath. Per the emergency department note he denied cough, fever, chills. He rapidly decompensated and the emergency department requiring intubation mechanical ventilation. His chest x-ray is suggestive of bilateral significant pulmonary edema. His BNP is severely elevated at greater than 1900. Unfortunately on my evaluation the patient is intubated and sedated and cannot provide any additional history. He is admitted to the ICU with severe CHF exacerbation. Significant Findings See below Imaging Last Impressions Chest X-Ray 02/06/17 0600 Signed Impressions: Service Date/Time: Monday, February 06, 2017 03:13 - CONCLUSION: Stable chest x-ray with unchanged interstitial opacities on the right. Bret Lizama MD PE at Discharge GENERAL: 58-year-old male, SKIN: Cool and dry HEAD: Atraumatic. Normocephalic. EYES: Pupils equal and and fixed ENT: No nasal bleeding or discharge. Mucous membranes pink and moist. NECK: Trachea midline. No JVD. CARDIOVASCULAR: Asystole RESPIRATORY: No breath sounds GASTROINTESTINAL: Abdomen soft, non-tender, nondistended. Hepatic and splenic margins not palpable. MUSCULOSKELETAL: Extremities without clubbing, cyanosis, or edema. No obvious deformities. NEUROLOGICAL: Unresponsive Transfer Summary Neuro/Psych: Hypoactive delirium Insomnia Hard of hearing History of chronic pain syndrome Diabetes mellitus neuropathy Acetaminophen per rectum for fever Lorazepam/morphine for pain management Respiratory: Acute hypoxic respiratory failure- resolving secondary to acute on chronic diastolic heart failure. Pulmonary edema- resolved. As needed albuterol therapy for dyspnea hyoscyamine when necessary for secretions Cardiovascular: Acute Systolic CHF exacerbation Non-ST elevation myocardial infarction-- type II secondary to demand ischemia- resolving. Elevated troponin- resolved. Moderate pulmonary hypertension Severe three-vessel coronary disease - not amenable to bypass or PCI - 2016 cardiology evaluation History of peripheral vascular disease History of atrial fibrillation Furosemide 20 mill grams IV every 6 hours when necessary volume overload Echocardiogram 2015 EF 50-55%. 11/25 EF 35-40%. Moderate LVH. Global LV dysfunction. PAP 40-50 cm H2O Evaluated by vascular surgery 617 for right lower extremity ulceration. Very poor surgical candidate. Needs right lower extremity amputated. Refused in past. Not a candidate for CABG or PCI due to severe three-vessel coronary disease per previous CT surgery notes Renal/: BPH Remove Chase catheter FEN/GI: Hypokalemia Acute intravascular volume overload- resolved. Gastroesophageal reflux disease Advance diet if patient tolerates Heme/ID: Coagulopathy Secondary to supratherapeutic INR on warfarin- resolved. 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 Currently oil emulsion gauze daily. Wet-to-dry changes daily. Prophylaxis: GI Prophylaxis Discontinued DVT Prophylaxis Discontinued due to's titer status Access - Utilize peripheral IV. 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 He represents today with worsening shortness of breath. Per the emergency department note he denied cough, fever, chills. He rapidly decompensated and the emergency department requiring intubation mechanical ventilation. His chest x-ray is suggestive of bilateral significant pulmonary edema. His BNP is severely elevated at greater than 1900. Unfortunately on my evaluation the patient is intubated and sedated and cannot provide any additional history. He is admitted to the ICU with severe CHF exacerbation. 01/30: failed SBT this AM for tachypnea and hypoxia. ABG with persistence of hypercarbic respiratory failure. bumex drip started last night and patient made > 1L urine. Cr stable this AM. Trop trended up slightly to 0.3 and now downtrending to 0.24. well-controlled sedation on fentanyl alone. patient somnolent but arousable. no complaints. 01/31: much improved diuresis yesterday with > 4L uop. plan to repeat SBT today. trop downtrending. INR remains elevated at 4. 02/01: continues to diurese well with net negative 4.7L/24h. Cr at baseline. failed SBT yesterday again for tachypnea. INR down to 1.8 from 4. still very somnolent. bumex held overnight and had to receive ivf overnight for hypotension and tachycardia. awake, but not following commands. 02/02: seen and evaluated around 07:30am. delayed note entry. failed SBT today for mental status. persistently hypoactive delirium. opens eyes but will not follow commands, no cough on command. but moves all extremities, purposeful. delirious but not agitated. 02/03: GCS 11 T. CPAP trials failed. Following commands. Denies pain at this time. Chest x-ray pending.INR 1.1. Since being transitioned on Lovenox for therapeutic INR goal 2-3. 02/04: No acute events overnight. The patient remained on CPAP for greater than 2 hours. Pt remains GCS 11T. 02/05: Currently on ACV. 5 hours PSV trial yesterday. Off all sedation. Arousable and follows simple commands. Tolerating tube feeding. No bowel movement. 02/06: Currently on PSV trial. Lasted several hours yesterday. Off all sedation. Failed weaning priors. Will need tracheostomy. Continues to be full code. 02/07: Plan for withdrawal care today. Exhibits signed. Subjective: 02/08: Extubated yesterday. Appears comfortable on room air. Pt Condition on Discharge: Deteriorating Discharge Disposition: Discharge Home Discharge Instructions DIET: Follow Instructions for: As Tolerated, No Restrictions Speech Therapy-Diet Recommends: Other Kip Cevallos MD Mar 01, 2017 07:09
== END 2017-02-08 13:54 | disposition expired | DRG 207 ==
LOC: NEPE 09:49 → NEDA 12:20 → HIMW 16:50
PROVIDERS: ADMIT Internal Medicine Critical Care Medicine; ATTEND Internal Medicine Critical Care Medicine
PROC: 5A1955Z Respiratory Ventilation, Greater than 96 Consecutive Hours (ICD-10-PCS; principal; 2017-01-29)
PROC: 0BH17EZ Insertion of Endotracheal Airway into Trachea, Via Natural or Artificial Opening (ICD-10-PCS; 2017-01-29)
DX: J96.01 Acute respiratory failure with hypoxia (principal); I21.4 Non-ST elevation (NSTEMI) myocardial infarction; I50.43 Acute on chronic combined systolic (congestive) and diastolic (congestive) heart failure; E87.3 Alkalosis; L97.819 Non-pressure chronic ulcer of other part of right lower leg with unspecified severity; I11.0 Hypertensive heart disease with heart failure; E11.40 Type 2 diabetes mellitus with diabetic neuropathy, unspecified; E11.51 Type 2 diabetes mellitus with diabetic peripheral angiopathy without gangrene; E11.621 Type 2 diabetes mellitus with foot ulcer; I48.91 Unspecified atrial fibrillation; J44.9 Chronic obstructive pulmonary disease, unspecified; E87.6 Hypokalemia; H91.90 Unspecified hearing loss, unspecified ear; E11.65 Type 2 diabetes mellitus with hyperglycemia; G89.4 Chronic pain syndrome; J96.02 Acute respiratory failure with hypercapnia; N40.0 Benign prostatic hyperplasia without lower urinary tract symptoms; I27.2 Other secondary pulmonary hypertension; L89.610 Pressure ulcer of right heel, unstageable; F32.9 Major depressive disorder, single episode, unspecified; D64.9 Anemia, unspecified; I25.10 Atherosclerotic heart disease of native coronary artery without angina pectoris; L97.519 Non-pressure chronic ulcer of other part of right foot with unspecified severity; E78.5 Hyperlipidemia, unspecified; Z51.5 Encounter for palliative care; K21.9 Gastro-esophageal reflux disease without esophagitis; R41.0 Disorientation, unspecified; G47.00 Insomnia, unspecified; F41.9 Anxiety disorder, unspecified; Z99.3 Dependence on wheelchair; Z89.612 Acquired absence of left leg above knee; Z79.4 Long term (current) use of insulin; Z79.01 Long term (current) use of anticoagulants; Z79.899 Other long term (current) drug therapy; Z87.891 Personal history of nicotine dependence; T45.515A Adverse effect of anticoagulants, initial encounter; Z86.14 Personal history of Methicillin resistant Staphylococcus aureus infection
CPT/HCPCS: 31500; 36600; 43753; 51702; 71010; 80048; 80053; 80076; 82140; 82550; 82552; 82805; 82948; 83735; 83880; 84100; 84132; 84484; 85025; 85027; 85610; 85730; 86850; 86900; 86901; 87641; 93005; 94002; 94003; 94640; 94664; 96365; C9113; J0330; J1120; J1205; J1650; J1980; J2060; J2270; J3010; J3475; J3480; J7030; J7050; J7120; P9047